=== PATIENT | female | born 1960 | race Caucasian/White ===

== ENCOUNTER 2016-04-08 03:43 | Inpatient (IN) | payer MEDICARE, OTHER, MEDICAID ==
[~2016-04-08] VITALS: Ht 167.6 cm; Wt 100.0 kg
[2016-04-08] VITALS (25 sets, daily range): BP systolic 139–247; BP diastolic 77–129; PULSE 73–85; RESP 16–27; TEMP 98.2–98.8; O2SAT 89–98
[2016-04-08] MEDS ORDERED: NITROGLYCERIN-DEXTROSE INJ 250 ML IV ONE (04:15)
[2016-04-08] MEDS ORDERED: FUROSEMIDE 40 MG/4 ML VIAL IV PUSH ONE (04:15)
[2016-04-08 04:31] LABS: AUTOMATED NEUTROPHIL # 9.2 TH/MM3 (1.8-7.7); BASOPHIL # 0.1 TH/MM3 (0-0.2); EOSINOPHIL # 0.2 TH/MM3 (0-0.4); EOSINOPHIL % 2.2 % (0.0-4.0); HEMATOCRIT 23.1 % (35.0-46.0); HEMO FLAGS DIFF FINAL; LYMPH % 6.8 % (9.0-44.0); LYMPHOCYTE # 0.7 TH/MM3 (1.0-4.8); MEAN CELL VOLUME 96.7 FL (80.0-100.0); MEAN CORPUSCULAR HEMOGLOBIN 32.4 PG (27.0-34.0); MEAN CORPUSCULAR HGB CONC 33.5 % (32.0-36.0); MONO % 5.1 % (0.0-8.0); NEUT % 84.9 % (16.0-70.0); PLATELET COUNT 219 TH/MM3 (150-450); RED BLOOD COUNT 2.39 MIL/MM3 (4.00-5.30); RED CELL DISTRIBUTION WIDTH 15.7 % (11.6-17.2); WHITE BLOOD COUNT 10.9 TH/MM3 (4.0-11.0)
[2016-04-08 04:40] LABS: BLOOD, URINE TRACE (NEG); GLUCOSE,URINE 1000 mg/dL (NEG); KETONE, URINE NEG (NEG); NITRITE,URINE NEG (NEG); URINE COLOR LIGHT-YELLOW (YELLW/STRAW)
[2016-04-08 04:43] LABS: APTT (PATIENT) 23.6 SEC (24.3-30.1); INTERNATIONAL NORMALIZED RATIO 0.9 RATIO; PROTHROMBIN TIME - PATIENT 10.1 SEC (9.8-11.6)
[2016-04-08 04:44] LABS: COMMENT (UR) CULT NOT INDICATED; CULTURE IF INDICATED CULT NOT INDICATED
[2016-04-08 04:56] LABS: ALT (GPT) 28 U/L (10-53); ANION GAP 14 MEQ/L (5-15); AST (GOT) 28 U/L (15-37); BICARBONATE 20.4 MEQ/L (21.0-32.0); BLOOD UREA NITROGEN 78 MG/DL (7-18); CHLORIDE 99 MEQ/L (98-107); GLOMERULAR FILTRATION RATE 4 ML/MIN (>89); MAGNESIUM 2.7 MG/DL (1.5-2.5); POTASSIUM 5.1 MEQ/L (3.5-5.1); SODIUM (NA) 133 MEQ/L (136-145)
[2016-04-08 05:00] LABS: ALKALINE PHOSPHATASE 91 U/L (45-117); BETA-HYDROXYBUTYRATE 0.17 MMOL/L (0.00-0.39); CREATINE KINASE 161 U/L (26-192); TOTAL BILIRUBIN ADULT 0.5 MG/DL (0.2-1.0)
--- NOTE | 2016-04-08 05:03 | PD ---
HPI Chief Complaint: Respiratory Distress Time Seen by Provider: 04:09 Travel History International Travel<30 days: No Contact w/Intl Traveler<30days: No Traveled to known affect area: No History of Present Illness HPI The patient is a 56 year old female who presents to the [facility] emergency department with a history of shortness of breath that awoke her from sound sleep prior to arrival. The patient reports that she has chronic renal failure and is on hemodialysis. She just recently moved to the area from [place] and has not established with a primary care doctor. She has established with shirring machine operator, Dr. Rubio. She reports that she has been getting her hemodialysis on Thursday, , and Thursday. She did receive her usual dialysis on Thursday. The patient reports that throughout the weekend she has had increased thirst and has been drinking a significant amount of extra fluids. She does not check her blood sugar on a regular basis although she does have a history of diabetes. She reports that she is on glyburide for her diabetes although her bottle that was provided by ambulance services is empty. The patient's blood sugar was noted be 468. The patient was placed on supplemental nasal cannula oxygen by ambulance services. The patient's room air oxygen saturation was 85-88%. The patient's O2 saturation on supplemental oxygen went up to 96-97%. The patient denies any recent fevers, cough, congestion, neck pain, chest pain, abdominal pain, vomiting, diarrhea, urinary symptoms (she does report urinating a small amount daily in spite of her renal failure), or neurologic symptoms. The patient's blood pressure was noted to be very high prior to arrival at 250/130. The patient reports that she last took her blood pressure medication 2 days ago she forgot to take it yesterday. [facility] Past Medical History Narrative Medical The patient's past medical history is significant for hypertension, chronic renal failure on hemodialysis, history of diabetes mellitus. Past Surgical History Narrative Surgical The patient's past surgical history is significant for a skin lesion resection, left arm AV fistula placement. Social History Alcohol Use: No Tobacco Use: No Substance Use: No Allergies-Medications (Allergen,Severity, Reaction): Coded Allergies: No Known Allergies (Unverified , 04/08/16) Reported Meds & Prescriptions Reported Meds & Active Scripts Active Reported Amlodipine (Amlodipine Besylate) 10 Mg Tab 10 Mg PO DAILY Glyburide 5 Mg Tab 5 Mg PO DAILY Take with meals at the same time each day Hydralazine (Hydralazine HCl) 25 Mg Tab 25 Mg PO TID Take with a meal Renvela (Sevelamer Carbonate) 800 Mg Tab 800 Mg PO TID Hydralazine (Hydralazine HCl) 50 Mg Tab 50 Mg PO BID Take with a meal Review of Systems Except as stated in HPI: all other systems reviewed are Neg General / Constitutional: No: Fever Eyes: No: Visual changes HENT: No: Headaches Cardiovascular: Positive: Dyspnea on exertion, No: Chest Pain or Discomfort Respiratory: Positive: Shortness of Breath Gastrointestinal: No: Nausea, Vomiting, Diarrhea, Abdominal Pain Genitourinary: No: Dysuria Musculoskeletal: No: Pain Skin: No Rash Neurologic: No: Weakness Psychiatric: No: Depression Endocrine: No: Polydipsia Hematologic/Lymphatic: No: Easy Bruising Physical Exam Narrative General: The patient is a well-developed well-nourished female who arrives short of breath with tachypnea, O2 saturations on supplemental oxygen at 4 L are 96-97%. Head and Neck exam: Head is normocephalic atraumatic. Eyes: EOMI, pupils are equal round and reactive to light. Nose: Midline septum with pink mucous membranes Mouth: Dentition unremarkable. Moist mucus membranes. Posterior oropharynx is not erythematous. No tonsillar hypertrophy. Uvula midline. Airway patent. Neck: No palpable lymphadenopathy. No nuchal rigidity. No thyromegaly. Cardiovascular: Regular rate and rhythm without murmurs, gallops, or rubs. No pulse deficit to the extremities and simultaneous auscultation and palpation of her radial artery. Lungs: The patient is noted to be tachypneic. Clear to auscultation bilaterally. No wheezes, rhonchi, or rales audible, however she has decreased air movement in the bases on examination. Abdomen: Soft, without tenderness to palpation in all 4 quadrants of the abdomen. No guarding, rebound, or rigidity. Normal bowel sounds are audible. Extremities: No clubbing or cyanosis. The patient has trace to 1+ pitting edema of bilateral lower extremities. 2+ pulses in all 4 extremities. No calf tenderness on palpation. Back: No spinous process tenderness to palpation. No costovertebral angle tenderness to palpation. Neurologic Exam: Grossly nonfocal. She is oriented to person, place, time, and situation. The patient is moving all extremities with 5 over 5 strength. The patient has intact sensation over all dermatomes. The patient has no facial asymmetry. Cranial nerves II through XII are intact. Skin Exam: No rash noted. Intact skin that is warm and dry. Data Data Last Documented VS Vital Signs Date Time Temp Pulse Resp B/P Pulse Ox O2 Delivery O2 Flow Rate FiO2 04/08/16 06:44 80 17 209/100 95 Nasal Cannula 2 04/08/16 03:45 98.2 Orders Electrocardiogram (04/08/16 04:09) Complete Blood Count With Diff (04/08/16 04:09) Comprehensive Metabolic Panel (04/08/16 04:09) Creatine Kinase (Cpk) (04/08/16 04:09) Ckmb (Isoenzyme) Profile (04/08/16 04:09) Troponin I (04/08/16 04:09) B-Type Natriuretic Peptide (04/08/16 04:09) Prothrombin Time / Inr (Pt) (04/08/16 04:09) Act Partial Throm Time (Ptt) (04/08/16 04:09) Arterial Blood Gas (Abg) (04/08/16 04:09) Urinalysis - C+S If Indicated (04/08/16 04:09) Magnesium (Mg) (04/08/16 04:09) Beta Hydroxybutyrate (Acetone) (04/08/16 04:09) Chest, Single Ap (04/08/16 04:09) Iv Access Insert/Monitor (04/08/16 04:09) Ecg Monitoring (04/08/16 04:09) Oximetry (04/08/16 04:09) Drug Screen, Random Urine (04/08/16 04:09) Nitroglycerin-Dextrose Inj (Nitroglyceri (04/08/16 04:15) Arterial Blood Gas (Abg) (04/08/16 ) Furosemide Inj (Lasix Inj) (04/08/16 04:15) CKMB (04/08/16 04:25) CKMB% (04/08/16 04:25) Morphine Inj (Morphine Inj) (04/08/16 05:15) Ondansetron Inj (Zofran Inj) (04/08/16 05:15) Insulin Human Regular Inj (Novolin R Inj (04/08/16 06:15) Admit To Inpatient (04/08/16 ) Vital Signs (Adult) Q4H (04/08/16 06:07) Activity Oob With Assistance (04/08/16 06:07) Bartacker / Telemetry .CONTINUOUS (04/08/16 06:07) Diet 1800 Ada Cons Carb (04/08/16 Breakfast) Diet Heart Healthy (04/08/16 Breakfast) Sodium Chloride 0.9% Flush (Ns Flush) (04/08/16 06:15) Sodium Chloride 0.9% Flush (Ns Flush) (04/08/16 09:00) Creatine Kinase (Cpk) (04/08/16 10:30) Creatine Kinase (Cpk) (04/08/16 16:30) Troponin I (04/08/16 10:30) Troponin I (04/08/16 16:30) Electrocardiogram (04/08/16 10:30) Electrocardiogram (04/08/16 16:30) Resp Oxygen Richardson C Titrat 1-4 L (04/08/16 ) Pt Request For Service (04/08/16 06:07) Case Management Consult (04/08/16 06:07) Naloxone Inj (Narcan Inj) (04/08/16 06:15) Inpatient Certification (04/08/16 ) Bedside Glucose OBI.AC&HS (04/08/16 06:10) ^ Blood Glucose Goal (Criteria (04/08/16 06:10) ^ Hypoglycemia 51 - 69 Mg/Dl (04/08/16 06:10) ^ Hypoglycemia 50 Mg/Dl Or < (04/08/16 06:10) ^ Notify Dr: Other (04/08/16 06:10) Dextrose 50% In [place] (Vial) Inj (D50w (Vi (04/08/16 06:15) Glucagon Inj (Glucagon Inj) (04/08/16 06:15) Insulin Aspart Supplemtl Scale (Novolog (04/08/16 07:00) Admit Order (Ed Use Only) (04/08/16 06:08) Labs Laboratory Tests Test 04/08/16 04/08/16 04/08/16 04:25 04:30 05:10 White Blood Count 10.9 TH/MM3 Red Blood Count 2.39 MIL/MM3 Hemoglobin 7.7 GM/DL Hematocrit 23.1 % Mean Corpuscular Volume 96.7 FL Mean Corpuscular Hemoglobin 32.4 PG Mean Corpuscular Hemoglobin 33.5 % Concent Red Cell Distribution Width 15.7 % Platelet Count 219 TH/MM3 Mean Platelet Volume 9.0 FL Neutrophils (%) (Auto) 84.9 % Lymphocytes (%) (Auto) 6.8 % Monocytes (%) (Auto) 5.1 % Eosinophils (%) (Auto) 2.2 % Basophils (%) (Auto) 1.0 % Neutrophils # (Auto) 9.2 TH/MM3 Lymphocytes # (Auto) 0.7 TH/MM3 Monocytes # (Auto) 0.6 TH/MM3 Eosinophils # (Auto) 0.2 TH/MM3 Basophils # (Auto) 0.1 TH/MM3 CBC Comment DIFF FINAL Differential Comment Prothrombin Time 10.1 SEC Prothromb Time International 0.9 RATIO Ratio Activated Partial 23.6 SEC Thromboplast Time Sodium Level 133 MEQ/L Potassium Level 5.1 MEQ/L Chloride Level 99 MEQ/L Carbon Dioxide Level 20.4 MEQ/L Anion Gap 14 MEQ/L Blood Urea Nitrogen 78 MG/DL Creatinine 10.44 MG/DL Estimat Glomerular Filtration 4 ML/MIN Rate Random Glucose 460 MG/DL Calcium Level 8.8 MG/DL Magnesium Level 2.7 MG/DL Total Bilirubin 0.5 MG/DL Aspartate Amino Transf 28 U/L (AST/SGOT) Alanine Aminotransferase 28 U/L (ALT/SGPT) Alkaline Phosphatase 91 U/L Total Creatine Kinase 161 U/L Creatine Kinase MB 2.2 NG/ML Troponin I 0.71 NG/ML B-Type Natriuretic Peptide 1210 PG/ML Total Protein 7.1 GM/DL Albumin 3.4 GM/DL B-Hydroxybutyrate 0.17 MMOL/L Urine Color LIGHT-YELLOW Urine Turbidity CLEAR Urine pH 8.0 Urine Specific [place] 1.008 Urine Protein 300 mg/dL Urine Glucose (UA) 1000 mg/dL Urine Ketones NEG mg/dL Urine Occult Blood TRACE Urine Nitrite NEG Urine Bilirubin NEG Urine Urobilinogen LESS THAN 2.0 MG/DL Urine Leukocyte Esterase NEG Urine RBC 1 /hpf Urine WBC 2 /hpf Microscopic Urinalysis Comment CULT NOT INDICATED Blood Gas Puncture Site RT RADIAL Blood Gas Patient Temperature 98.6 Blood Gas HCO3 19 mmol/L Blood Gas Base Excess -5.8 mmol/L Blood Gas Oxygen Saturation 89 % Arterial Blood pH 7.35 Arterial Blood Partial 35 mmHg Pressure CO2 Arterial Blood Partial 70 mmHG Pressure O2 Arterial Blood Oxygen Content 16.3 Vol % Arterial Blood 2.5 % Carboxyhemoglobin Arterial Blood Methemoglobin 2.1 % Blood Gas Hemoglobin 13.0 G/DL Oxygen Delivery Device ROOM AIR Blood Gas Inspired Oxygen 21 % [facility] Medical Decision Making Medical Screen Exam Complete: Yes Emergency Medical Condition: Yes Medical Record Reviewed: Yes Interpretation(s) Laboratory Tests Test 04/08/16 04/08/16 04/08/16 04:25 04:30 05:10 White Blood Count 10.9 TH/MM3 Red Blood Count 2.39 MIL/MM3 Hemoglobin 7.7 GM/DL Hematocrit 23.1 % Mean Corpuscular Volume 96.7 FL Mean Corpuscular Hemoglobin 32.4 PG Mean Corpuscular Hemoglobin 33.5 % Concent Red Cell Distribution Width 15.7 % Platelet Count 219 TH/MM3 Mean Platelet Volume 9.0 FL Neutrophils (%) (Auto) 84.9 % Lymphocytes (%) (Auto) 6.8 % Monocytes (%) (Auto) 5.1 % Eosinophils (%) (Auto) 2.2 % Basophils (%) (Auto) 1.0 % Neutrophils # (Auto) 9.2 TH/MM3 Lymphocytes # (Auto) 0.7 TH/MM3 Monocytes # (Auto) 0.6 TH/MM3 Eosinophils # (Auto) 0.2 TH/MM3 Basophils # (Auto) 0.1 TH/MM3 CBC Comment DIFF FINAL Differential Comment Prothrombin Time 10.1 SEC Prothromb Time International 0.9 RATIO Ratio Activated Partial 23.6 SEC Thromboplast Time Sodium Level 133 MEQ/L Potassium Level 5.1 MEQ/L Chloride Level 99 MEQ/L Carbon Dioxide Level 20.4 MEQ/L Anion Gap 14 MEQ/L Blood Urea Nitrogen 78 MG/DL Creatinine 10.44 MG/DL Estimat Glomerular Filtration 4 ML/MIN Rate Random Glucose 460 MG/DL Calcium Level 8.8 MG/DL Magnesium Level 2.7 MG/DL Total Bilirubin 0.5 MG/DL Aspartate Amino Transf 28 U/L (AST/SGOT) Alanine Aminotransferase 28 U/L (ALT/SGPT) Alkaline Phosphatase 91 U/L Total Creatine Kinase 161 U/L Creatine Kinase MB 2.2 NG/ML Troponin I 0.71 NG/ML B-Type Natriuretic Peptide 1210 PG/ML Total Protein 7.1 GM/DL Albumin 3.4 GM/DL B-Hydroxybutyrate 0.17 MMOL/L Urine Color LIGHT-YELLOW Urine Turbidity CLEAR Urine pH 8.0 Urine Specific [place] 1.008 Urine Protein 300 mg/dL Urine Glucose (UA) 1000 mg/dL Urine Ketones NEG mg/dL Urine Occult Blood TRACE Urine Nitrite NEG Urine Bilirubin NEG Urine Urobilinogen LESS THAN 2.0 MG/DL Urine Leukocyte Esterase NEG Urine RBC 1 /hpf Urine WBC 2 /hpf Microscopic Urinalysis Comment CULT NOT INDICATED Blood Gas Puncture Site RT RADIAL Blood Gas Patient Temperature 98.6 Blood Gas HCO3 19 mmol/L Blood Gas Base Excess -5.8 mmol/L Blood Gas Oxygen Saturation 89 % Arterial Blood pH 7.35 Arterial Blood Partial 35 mmHg Pressure CO2 Arterial Blood Partial 70 mmHG Pressure O2 Arterial Blood Oxygen Content 16.3 Vol % Arterial Blood 2.5 % Carboxyhemoglobin Arterial Blood Methemoglobin 2.1 % Blood Gas Hemoglobin 13.0 G/DL Oxygen Delivery Device ROOM AIR Blood Gas Inspired Oxygen 21 % Last Impressions Chest X-Ray 04/08/16 0409 Signed Impressions: Service Date/Time: Friday, April 08, 2016 04:36 - CONCLUSION: 1. Cardiomegaly and bibasilar atelectasis versus pneumonia Walter Jorgensen MD Differential Diagnosis Pulmonary edema related to excessive fluid intake and the patient with chronic renal failure, versus dedication noncompliance causing hypertensive emergency and pulmonary edema, versus tachypnea and sensation of shortness of breath related to DKA. Narrative Course During the course of the patients emergency department visit, the patients history, examination, and differential diagnosis were reviewed with the patient. The patient had IV access obtained and blood work sent for analysis. The patient was placed on a offset pressman with oximetry and blood pressure monitoring. An EKG was done on arrival. The patient's EKG shows a sinus rhythm heart rate of 80, moderate intraventricular conduction delay with a QRS duration of 113 ms, no acute ST segment elevation or depression, T waves are inverted in aVL the patient's initial blood pressure on arrival his systolic of 236. The patient will be started on a nitroglycerin drip to lower her blood pressure. The patient was provided nitroglycerin which will be titrated to get her blood pressure less than or equal to 190 systolic, Lasix 40 mg IV was given 1. The patients laboratory studies were reviewed and remarkable for a white count of 10.9, hemoglobin 7.7, platelets 219 with 84.9 neutrophils. The patient's anemia is suspected to be a chronic related to her history of renal failure. CMP is remarkable for sodium of 133, bicarbonate 20.4, BUN 78, creatinine 10.44 , glucose 460, magnesium 2.7, CPK is 161, troponin I 0.71 which is likely related to the patient's elevated blood pressure, shortness of breath, and renal failure as I do not suspect an acute coronary syndrome. BNP is 1210, urinalysis shows no signs of infection, beta hydroxybutyrate 0.17, PT 10.1, PTT 23.6. The patient will be given regular insulin 10 units subcutaneously 1 to lower her blood sugar. Radiology studies were reviewed and remarkable for a chest x-ray that shows cardiomegaly and bibasilar atelectasis versus pneumonia. Given the patient's history and examination findings, the chest x-ray findings are likely related to pulmonary edema. The patient's case was discussed with Dr. Rubio the patient's shirring machine operator at approximately 5:55 AM. He will arrange for hemodialysis this morning for the patient. The patients results were discussed with the patient, including the plan of care. I explained that further testing and/ or monitoring is indicated based on the patients history, examination, and/ or laboratory findings. Therefore, I recommended admission for additional evaluation. The patient expressed understanding and was agreeable with this plan. The patient was admitted to the hospital in guarded condition and [facility] Critical Care Narrative Aggregate critical care time was 41 minutes. Time to perform other separately billable procedures was not included in the critical care time. My time did not include minutes spent treating any other patients simultaneously or on activities that did not directly contribute to the patient's treatment. The services I provided to this patient were to treat and/or prevent clinically significant deterioration that could result in: Progression of electrolyte abnormalities, versus respiratory failure, versus intracranial hemorrhage I provided critical care services requiring my management, as noted below: Chart data review, documentation time, medication orders and management, vital sign assessments/reviewing monitor data, ordering and reviewing lab tests, ordering and interpreting/reviewing x-rays and diagnostic studies, care of the patient and discussion of the patient with the admitting physicians. Physician Communication Physician Communication The patient's case was discussed with the shirring machine operator. Please see narrative course for further information regarding this. The patient's case is discussed with Dr. Kirkland who did agree to admit the patient for further evaluation and treatment at this time. Diagnosis Primary Impression: Hypertensive emergency Additional Impressions: Pulmonary edema Qualified Code: J81.0 - Acute pulmonary edema Chronic renal failure Qualified Code: N18.9 - Chronic renal failure, unspecified stage Noncompliance w/medication treatment due to intermit use of medication Admitting Information Admitting Physician Requests: Sun Ignacio MD Apr 08, 2016 05:03
[2016-04-08] MEDS ORDERED: HYDR50TA15 PO (05:06)
[2016-04-08] MEDS ORDERED: SEVEL800 PO (05:06)
[2016-04-08] MEDS ORDERED: GLYB5TAB3 PO (05:06)
[2016-04-08] MEDS ORDERED: AMLO10TA2 PO (05:06)
[2016-04-08] MEDS ORDERED: HYDR25TA35 PO (05:06)
[2016-04-08] MEDS ORDERED: MORPHINE SULFATE 4 MG/ML INJ IV PUSH ONE (05:15)
[2016-04-08] MEDS ORDERED: ONDANSETRON HCL 4 MG/2 ML VIAL IV PUSH ONE (05:15)
--- NOTE | 2016-04-08 05:15 | RADRPT ---
EXAM DATE/TIME: 04/08/2016 04:36 [facility] COMPARISON: No previous studies available for comparison. INDICATIONS : Short of breath. MEDICAL HISTORY : Diabetes mellitus type II. SURGICAL HISTORY : None. ENCOUNTER: Initial ACUITY: 1 day PAIN SCORE: 0/10 LOCATION: Bilateral chest FINDINGS: The cardiac silhouette is enlarged in transverse diameter. There is subsegmental atelectasis versus pneumonia in the both bases. There is no evidence of pneumonia. No pleural effusions are identified. CONCLUSION: 1. Cardiomegaly and bibasilar atelectasis versus pneumonia Walter Jorgensen MD on April 08, 2016 at 5:13 Board Certified Radiologist. This report was verified electronically.
[2016-04-08 05:24] LABS: CKMB 2.2 NG/ML (0.5-3.6)
[2016-04-08 05:26] LABS: BLOOD GAS BASE EXCESS -5.8 mmol/L (-2-2); BLOOD GAS CARBOXYHEMOGLOBIN 2.5 % (0-4); BLOOD GAS HCO3 19 mmol/L (22-26); BLOOD GAS METHEMOGLOBIN 2.1 % (0-2); BLOOD GAS O2 HGB SATURATION 89 % (90-100); BLOOD GAS OXYGEN CONTENT 16.3 Vol % (12.0-20.0); BLOOD GAS PCO2 35 mmHg (38-42); BLOOD GAS PO2 70 mmHG (61-120); TEMP CORR TO 98.6
[2016-04-08 05:27] LABS: CRITICAL VALUE YES; DRAW SITE RT RADIAL; FIO2 21 %; NUMBER OF ARTERIAL PUNCTURES 1; OXYGEN DEVICE ROOM AIR; STAT YES; ULNAR PULSE PRESENT
[2016-04-08] MEDS ORDERED: SODIUM CHLORIDE 0.9% FLUSH 5 ML FLUSH FLUSH PRN (06:15)
[2016-04-08] MEDS ORDERED: INSULIN HUMAN REGULAR 1,000 UNITS/10 ML VIAL SQ ONE (06:15)
[2016-04-08] MEDS ORDERED: NALOXONE HCL 0.4 MG/ML AMP IV PRN (06:15)
[2016-04-08] MEDS ORDERED: DEXTROSE 50% IN WATER 50 ML VIAL(D50) IV PUSH PRN (06:15)
[2016-04-08] MEDS ORDERED: GLUCAGON 1 MG/ML VIAL OTHER PRN (06:15)
[2016-04-08] MEDS: SODIUM CHLORIDE 0.9% FLUSH 5 ML FLUSH FLUSH SCH ×2 (07:02→20:38)
[2016-04-08] MEDS: INSULIN ASPART SUPPLEMENTAL SCALE SQ SCH ×4 (07:39→21:00)
--- NOTE | 2016-04-08 10:31 | EKG ---
Date Performed: 04/08/2016 Time Performed: 03:51:53 PTAGE: 56 years EKG: Sinus rhythm POOR R-WAVE PROGRESSION, LIKELY DUE TO LEAD PLACEMENT BUT CAN'T EXCLUDE ANTEROSEPTLA WY BORDERLINE E CG NO PREVIOUS TRACING DOCTOR: Den Chery Interpretating Date/Time 04/08/2016 10:29:33
[2016-04-08] MEDS: ASPIRIN 81 MG CHEW TAB CHEW SCH (11:00)
--- NOTE | 2016-04-08 11:06 | HHI.HP ---
[facility] No Primary Care Physician Admission Diagnosis Hypertensive Emergency, Chronic renal failure on hemodialysis Diagnoses: (1) Hypertensive emergency Diagnosis: Principal (2) ESRD (end stage renal disease) Diagnosis: Principal (3) Elevated troponin Diagnosis: Principal Chief Complaint: sob Travel History International Travel<30 Days: No Contact w/Intl Traveler <30 Da: No Traveled to Known Affected Are: No History of Present Illness patient is a 56 y/o female with history of ESRD-on HD ( TTS schedule), diabetes and hypertension presented to ER with sob. she says that she woke up with sob this morning. she denies any cough, fever, chest pain, nausea or vomiting. she says that she had her last HD on Thursday. she says that she's taking her medications but her BP is normally on ' high side'.she was started on Nitro drip in ER. she has moved from [place] . Review of Systems Constitutional: DENIES: Fever, Weight loss, Chills, Night Sweats Eyes: DENIES: Blurred vision, Diplopia, Vision loss, Double Vision Ears, nose, mouth, throat: DENIES: Tinnitus, Vertigo, Throat pain, Epistaxis Respiratory: COMPLAINS OF: Shortness of breath, DENIES: Apneas, Cough, Snoring , Wheezing, Hemoptysis, Sputum production Cardiovascular: DENIES: Chest pain, Palpitations, Syncope, Dyspnea on Exertion , PND, Lower Extremity Edema, Orthopnea, Claudication Gastrointestinal: DENIES: Abdominal pain, Black stools, Bloody stools, Constipation, Diarrhea, Nausea, Vomiting, Difficulty Swallowing, Anorexia Genitourinary: DENIES: Urinary frequency, Urgency, Hematuria, Dysuria Musculoskeletal: DENIES: Joint pain, Muscle aches, Stiffness, Joint Swelling Integumentary: DENIES: Rash Neurologic: DENIES: Abnormal gait, Headache, Localized weakness, Paresthesias, Seizures, Speech Problems, Tremor, Poor Balance Psychiatric: DENIES: Anxiety, Confusion, Mood changes, Depression, Hallucinations, Agitation, Suicidal Ideation, Homicidal Ideation, Delusions Past Family Social History Past Medical History ESRD hypertension diabetes mellitus Past Surgical History none reported. Reported Medications amlodipine hydralazine glyburide renvela Allergies: Coded Allergies: No Known Allergies (Unverified , 04/08/16) Active Ordered Medications Current Medications Nitroglycerin/ Dextrose (Nitroglycerin-Dextrose Inj) 250 ml @ 0 mls/hr TITRATE ONCE IV Last administered on 04/08/16 04:33; Start 04/08/16 at 04:15; Stop at 04:16; Status DC Furosemide (Lasix Inj) 40 mg ONCE ONCE IV PUSH Last administered on 04/08/16 04:33; Start 04/08/16 at 04:15; Stop 04/08/16 at 04:16; Status DC Morphine Sulfate (Morphine Inj) 4 mg ONCE ONCE IV PUSH Last administered on 05:21; Start 04/08/16 at 05:15; Stop 04/08/16 at 05:16; Status DC Ondansetron HCl (Zofran Inj) 4 mg ONCE ONCE IV PUSH Last administered on 05:20; Start 04/08/16 at 05:15; Stop 04/08/16 at 05:16; Status DC Insulin Human Regular (NovoLIN R INJ) 10 units ONCE ONCE SQ Last administered on 04/08/16 06:29; Start 04/08/16 at 06:15; Stop 04/08/16 at 06:16; Status DC IV Flush (NS Flush) 2 ml UNSCH PRN FLUSH FLUSH AFTER USING IV ACCESS; Start at 06:15 IV Flush (NS Flush) 2 ml BID FLUSH ; Start 04/08/16 at 09:00 Naloxone HCl (Narcan Inj) 0.4 mg UNSCH PRN IV SEE LABEL COMMENTS; Start at 06:15 Dextrose (D50w (Vial) Inj) 25 ml UNSCH PRN IV PUSH HYPOGLYCEMIA-SEE COMMENTS; Start 04/08/16 at 06:15 Glucagon (Glucagon Inj) 1 mg UNSCH PRN OTHER HYPOGLYCEMIA-SEE COMMENTS; Start 04/08/16 at 06:15 Insulin Aspart (NovoLOG SUPPLEMENTAL SCALE) 1 ACHS SLIDING SCALE SQ Last administered on 04/08/16 07:39; Start 04/08/16 at 07:00 Family History not related to this admission. Social History no smoking or drinking. Physical Exam Vital Signs Vital Signs Date Time Temp Pulse Resp B/P Pulse Ox O2 Delivery O2 Flow Rate FiO2 04/08/16 09:11 73 04/08/16 09:03 98.5 73 20 184/91 94 04/08/16 07:03 85 16 189/97 95 Nasal Cannula 2 04/08/16 06:53 81 16 194/89 94 Nasal Cannula 2 04/08/16 06:44 80 17 209/100 95 Nasal Cannula 2 04/08/16 06:31 83 16 216/101 97 Nasal Cannula 2 04/08/16 06:29 96 04/08/16 06:23 82 17 207/94 96 Nasal Cannula 2 04/08/16 05:56 78 17 216/91 98 Nasal Cannula 2 04/08/16 05:42 81 18 240/108 96 Nasal Cannula 2 04/08/16 05:21 81 20 234/112 97 Nasal Cannula 2 04/08/16 05:10 80 20 247/129 98 Nasal Cannula 2 04/08/16 04:40 83 24 239/119 93 Room Air 04/08/16 03:50 81 27 236/111 93 Nasal Cannula 2 04/08/16 03:45 98.2 Physical Exam GENERAL: This is a well-nourished, well-developed patient, in no apparent distress. SKIN: No rashes, ecchymoses or lesions. Cool and dry. HEAD: Atraumatic. Normocephalic. No temporal or scalp tenderness. EYES: Pupils equal round and reactive. Extraocular motions intact. No scleral icterus. No injection or drainage. ENT: Nose without bleeding, purulent drainage or septal hematoma. Throat without erythema, tonsillar hypertrophy or exudate. Uvula midline. Airway patent. NECK: Trachea midline. No JVD or lymphadenopathy. Supple, nontender, no meningeal signs. CARDIOVASCULAR: Regular rate and rhythm without murmurs, gallops, or rubs. RESPIRATORY: Clear to auscultation. Breath sounds equal bilaterally. No wheezes , rales, or rhonchi. GASTROINTESTINAL: Abdomen soft, non-tender, nondistended. No hepato-splenomegaly , or palpable masses. No guarding. MUSCULOSKELETAL: Extremities without clubbing, cyanosis, or edema. No joint tenderness, effusion, or edema noted. No calf tenderness. Negative Homans sign bilaterally. NEUROLOGICAL: Awake and alert. Cranial nerves II through XII intact. Motor and sensory grossly within normal limits. Five out of 5 muscle strength in all muscle groups. Normal speech. Laboratory Laboratory Tests Test 04/08/16 04/08/16 04/08/16 04:25 04:30 05:10 White Blood Count 10.9 Red Blood Count 2.39 Hemoglobin 7.7 Hematocrit 23.1 Mean Corpuscular Volume 96.7 Mean Corpuscular Hemoglobin 32.4 Mean Corpuscular Hemoglobin 33.5 Concent Red Cell Distribution Width 15.7 Platelet Count 219 Mean Platelet Volume 9.0 Neutrophils (%) (Auto) 84.9 Lymphocytes (%) (Auto) 6.8 Monocytes (%) (Auto) 5.1 Eosinophils (%) (Auto) 2.2 Basophils (%) (Auto) 1.0 Neutrophils # (Auto) 9.2 Lymphocytes # (Auto) 0.7 Monocytes # (Auto) 0.6 Eosinophils # (Auto) 0.2 Basophils # (Auto) 0.1 CBC Comment DIFF FINAL Differential Comment Prothrombin Time 10.1 Prothromb Time International 0.9 Ratio Activated Partial 23.6 Thromboplast Time Sodium Level 133 Potassium Level 5.1 Chloride Level 99 Carbon Dioxide Level 20.4 Anion Gap 14 Blood Urea Nitrogen 78 Creatinine 10.44 Estimat Glomerular Filtration 4 Rate Random Glucose 460 Calcium Level 8.8 Magnesium Level 2.7 Total Bilirubin 0.5 Aspartate Amino Transf 28 (AST/SGOT) Alanine Aminotransferase 28 (ALT/SGPT) Alkaline Phosphatase 91 Total Creatine Kinase 161 Creatine Kinase MB 2.2 Troponin I 0.71 B-Type Natriuretic Peptide 1210 Total Protein 7.1 Albumin 3.4 B-Hydroxybutyrate 0.17 Urine Color LIGHT-YELLOW Urine Turbidity CLEAR Urine pH 8.0 Urine Specific [place] 1.008 Urine Protein 300 Urine Glucose (UA) 1000 Urine Ketones NEG Urine Occult Blood TRACE Urine Nitrite NEG Urine Bilirubin NEG Urine Urobilinogen LESS THAN 2.0 Urine Leukocyte Esterase NEG Urine RBC 1 Urine WBC 2 Microscopic Urinalysis Comment CULT NOT INDICATED Blood Gas Puncture Site RT RADIAL Blood Gas Patient Temperature 98.6 Blood Gas HCO3 19 Blood Gas Base Excess -5.8 Blood Gas Oxygen Saturation 89 Arterial Blood pH 7.35 Arterial Blood Partial 35 Pressure CO2 Arterial Blood Partial 70 Pressure O2 Arterial Blood Oxygen Content 16.3 Arterial Blood 2.5 Carboxyhemoglobin Arterial Blood Methemoglobin 2.1 Blood Gas Hemoglobin 13.0 Oxygen Delivery Device ROOM AIR Blood Gas Inspired Oxygen 21 Result Diagram: 04/08/1642404/08/16424 Imaging Last Impressions Chest X-Ray 04/08/16408 Signed Impressions: Service Date/Time: Friday, April 08, 2016 04:36 - CONCLUSION: 1. Cardiomegaly and bibasilar atelectasis versus pneumonia Walter Jorgensen MD EKG ; sinus rhythm Assessment and Plan Assessment and Plan A/P - hypertensive emergency with history of ESRD-on HD started on nitro-drip- resume amlodipine and hydralazine- will monitor and start to taper down the drip will consult nephrology for HD -elevated troponin- due to ESRD? start aspirin- check the trend and consult cardiology -anemia of chronic disease- will monitor -diabetes mellitus; accu-check with SSI -DVT prophylaxis with SCD's Discussed Condition With the patient and RN. Physician Certification 2 Midnight Certification Type: Admission for Inpatient Services Order for Inpatient Services The services are ordered in accordance with Medicare regulations or non- Medicare payer requirements, as applicable. In the case of services not specified as inpatient-only, they are appropriately provided as inpatient services in accordance with the 2-midnight benchmark. Estimated LOS (days): 2 days is the estimated time the patient will need to remain in the hospital, assuming treatment plan goals are met and no additional complications. Post-Hospital Plan: Home Kika Fernandes MD Apr 08, 2016 11:06
[2016-04-08] MEDS ORDERED: RESP: ALBUTEROL 2.5 MG/IPRATROPIUM 0.5 MG NEB (PRN) NEB (11:45)
--- NOTE | 2016-04-08 11:52 | PD.CONS ---
HPI Service Nephrology Consult Requested By Reason for Consult Known ESRD on HD Primary Care Physician No Primary Care Physician History of Present Illness The patient is a 56 yo [place] female who is known to our services for ESRD on HD. She was brought to the ED this AM at the urge of her as she was severely SOB. She is very noncompliant when it comes to her fluid restrictions and says this weekend she "couldn't get enough to drink". Her last HD was on Thursday, which she did attend, but signed off of treatment early due to cramping. She does not follow with a primary care physician and states she only uses Glipizide for diabetic management. Not sure how her glucose levels are at home as she does not check. Non-smoker. BP has been high, but does come down after HD therapy. Has been started on NTG drip (Esperanza Morgan) Review of Systems Respiratory: COMPLAINS OF: Cough, Shortness of breath (Esperanza Morgan) Past Family Social History Allergies: Coded Allergies: No Known Allergies (Unverified , 04/08/16) Past Medical History ESRD on HD DM HTN Hyperphosphatemia Anemia Past Surgical History AVF formation LUE Reported Medications Reported Meds & Active Scripts Active Reported Amlodipine (Amlodipine Besylate) 10 Mg Tab 10 Mg PO DAILY Glyburide 5 Mg Tab 5 Mg PO DAILY Take with meals at the same time each day Hydralazine (Hydralazine HCl) 25 Mg Tab 25 Mg PO TID Take with a meal Renvela (Sevelamer Carbonate) 800 Mg Tab 800 Mg PO TID Hydralazine (Hydralazine HCl) 50 Mg Tab 50 Mg PO BID Take with a meal Active Ordered Medications Current Medications Medications (Trade) Dose Ordered Sig/Shaun Route Start Time Stop Time Status Last Admin (NS Flush) 2 ml UNSCH PRN FLUSH 04/08/16 06:15 (NS Flush) 2 ml BID FLUSH 04/08/16 09:00 (Narcan Inj) 0.4 mg UNSCH PRN IV 04/08/16 06:15 (D50w (Vial) Inj) 25 ml UNSCH PRN IV PUSH 04/08/16 06:15 (Glucagon Inj) 1 mg UNSCH PRN OTHER 04/08/16 06:15 (Norvasc) 10 mg DAILY PO 04/08/16 11:00 (Renvela) 800 mg TID PO 04/08/16 13:00 (Apresoline) 50 mg Q8HR PO 04/08/16 14:00 (Aspirin Chew) 81 mg DAILY CHEW 04/08/16 11:00 (Tylenol) 650 mg Q4H PRN PO 04/08/16 11:00 Family History [place] Social History Lives at home with her Denies tobacco use No EtOH No illicit drug use (Esperanza Morgan) Physical Exam Vital Signs Vital Signs Date Time Temp Pulse Resp B/P Pulse Ox O2 Delivery O2 Flow Rate FiO2 04/08/16 09:11 73 04/08/16 09:03 98.5 73 20 184/91 94 04/08/16 07:03 85 16 189/97 95 Nasal Cannula 2 04/08/16 06:53 81 16 194/89 94 Nasal Cannula 2 04/08/16 06:44 80 17 209/100 95 Nasal Cannula 2 04/08/16 06:31 83 16 216/101 97 Nasal Cannula 2 04/08/16 06:29 96 04/08/16 06:23 82 17 207/94 96 Nasal Cannula 2 04/08/16 05:56 78 17 216/91 98 Nasal Cannula 2 04/08/16 05:42 81 18 240/108 96 Nasal Cannula 2 04/08/16 05:21 81 20 234/112 97 Nasal Cannula 2 04/08/16 05:10 80 20 247/129 98 Nasal Cannula 2 04/08/16 04:40 83 24 239/119 93 Room Air 04/08/16 03:50 81 27 236/111 93 Nasal Cannula 2 04/08/16 03:45 98.2 Physical Exam GENERAL: Sitting up on edge of the bed. In NAD, but is heavy breathing SKIN: Warm and dry. HEAD: Atraumatic. Normocephalic. EYES: Pupils equal and round. No scleral icterus. No injection or drainage. ENT: No nasal bleeding or discharge. Mucous membranes pink and moist. NECK: Trachea midline. No JVD. CARDIOVASCULAR: Regular rate and rhythm. RESPIRATORY: Diminished breath sounds throughout. No rales GASTROINTESTINAL: Abdomen soft, non-tender, nondistended. Hepatic and splenic margins not palpable. MUSCULOSKELETAL: Extremities without clubbing, cyanosis. 1-2+ pitting edema BLE up to knees. NEUROLOGICAL: Awake and alert. Normal speech. PSYCHIATRIC: Appropriate mood and affect; insight and judgment normal. Laboratory Laboratory Tests Test 04/08/16 04/08/16 04/08/16 04:25 04:30 05:10 White Blood Count 10.9 Red Blood Count 2.39 Hemoglobin 7.7 Hematocrit 23.1 Mean Corpuscular Volume 96.7 Mean Corpuscular Hemoglobin 32.4 Mean Corpuscular Hemoglobin 33.5 Concent Red Cell Distribution Width 15.7 Platelet Count 219 Mean Platelet Volume 9.0 Neutrophils (%) (Auto) 84.9 Lymphocytes (%) (Auto) 6.8 Monocytes (%) (Auto) 5.1 Eosinophils (%) (Auto) 2.2 Basophils (%) (Auto) 1.0 Neutrophils # (Auto) 9.2 Lymphocytes # (Auto) 0.7 Monocytes # (Auto) 0.6 Eosinophils # (Auto) 0.2 Basophils # (Auto) 0.1 CBC Comment DIFF FINAL Differential Comment Prothrombin Time 10.1 Prothromb Time International 0.9 Ratio Activated Partial 23.6 Thromboplast Time Sodium Level 133 Potassium Level 5.1 Chloride Level 99 Carbon Dioxide Level 20.4 Anion Gap 14 Blood Urea Nitrogen 78 Creatinine 10.44 Estimat Glomerular Filtration 4 Rate Random Glucose 460 Calcium Level 8.8 Magnesium Level 2.7 Total Bilirubin 0.5 Aspartate Amino Transf 28 (AST/SGOT) Alanine Aminotransferase 28 (ALT/SGPT) Alkaline Phosphatase 91 Total Creatine Kinase 161 Creatine Kinase MB 2.2 Troponin I 0.71 B-Type Natriuretic Peptide 1210 Total Protein 7.1 Albumin 3.4 B-Hydroxybutyrate 0.17 Urine Color LIGHT-YELLOW Urine Turbidity CLEAR Urine pH 8.0 Urine Specific [place] 1.008 Urine Protein 300 Urine Glucose (UA) 1000 Urine Ketones NEG Urine Occult Blood TRACE Urine Nitrite NEG Urine Bilirubin NEG Urine Urobilinogen LESS THAN 2.0 Urine Leukocyte Esterase NEG Urine RBC 1 Urine WBC 2 Microscopic Urinalysis Comment CULT NOT INDICATED Blood Gas Puncture Site RT RADIAL Blood Gas Patient Temperature 98.6 Blood Gas HCO3 19 Blood Gas Base Excess -5.8 Blood Gas Oxygen Saturation 89 Arterial Blood pH 7.35 Arterial Blood Partial 35 Pressure CO2 Arterial Blood Partial 70 Pressure O2 Arterial Blood Oxygen Content 16.3 Arterial Blood 2.5 Carboxyhemoglobin Arterial Blood Methemoglobin 2.1 Blood Gas Hemoglobin 13.0 Oxygen Delivery Device ROOM AIR Blood Gas Inspired Oxygen 21 (Esperanza Morgan) Result Diagram: 04/08/1642404/08/16424 Imaging Last Impressions Chest X-Ray 04/08/16408 Signed Impressions: Service Date/Time: Friday, April 08, 2016 04:36 - CONCLUSION: 1. Cardiomegaly and bibasilar atelectasis versus pneumonia Walter Jorgensen MD (Esperanza Morgan) Assessment and Plan Problem List: (1) ESRD (end stage renal disease) Plan: The patient typically dialyzes TTS. HD as scheduled today with UF of 5-6L if tolerated. Will likely need HD again on Thursday Medications should be adjusted for the patient's ESRD. Avoid gadolinium. (2) Non-compliance Plan: Discussed at length about noncompliance with medications, fluid restrictions, dietary guidelines. Although she says she understands, she appears to have little insight into the severity of her poor decision making. (3) Hypertensive emergency Plan: Pt was started on NTG drip. BP will improve with HD. Continue on home medications otherwise. (4) Fluid overload Plan: As above. HD today and likely will need again on Thursday. (5) Anemia Plan: Repeat CBC with Fe panels. Epogen with HD (Esperanza Morgan) Assessment and Plan The exam, history, and the medical decision-making described in the above note were completed with the assistance of the PA-Malena. I reviewed and agree with the findings presented. I attest that I had a [id number] encounter with the patient on the same day, and personally performed and documented my assessment and findings in the medical record. I again discussed with the patient importance of compliance with her dietary fluid restriction, sodium chloride restriction and dialysis treatments. The patient has an ongoing history of signing off the dialysis machine prior to completion of her treatments which obviously is detrimental to her health as discussed with her again but the patient continues to show poor insight. In addition she has not taken steps to keep her insurance active and I discussed with her the importance of doing same. A social work and the dialysis facility has been advising the patient regarding this but the patient has made no effort so far to get this situation rectified. In view of non-compliance with medical advice and care I advised her that unless she improves her compliance the patient physician relationship will have to be reviewed. (Jillian Rubio MD) sEperanza Morgan Apr 08, 2016 11:52 Jillian Rubio MD Apr 08, 2016 15:05
[2016-04-08] MEDS ORDERED: SODIUM CHLOR 0.9% 1000 ML INJ 1,000 ML IV PRN ×3 (11:55)
[2016-04-08] MEDS ORDERED: GELATIN 12 MM/7 MM FOAM TOP PRN (12:00)
[2016-04-08] MEDS ORDERED: HEPARIN SODIUM - IV 10,000 UNITS/10 ML VIAL PRN (12:00)
[2016-04-08] MEDS ORDERED: MANNITOL 12.5 GM/50 ML VIAL IV PRN (12:00)
[2016-04-08] MEDS ORDERED: ACETAMINOPHEN 325 MG TAB PO PRN (12:00)
[2016-04-08] MEDS ORDERED: diphenhydrAMINE HCL 25 MG CAP PO PRN (12:00)
[2016-04-08] MEDS ORDERED: GENTAMICIN SULFATE (DIALYSIS USE ONLY) 20 MG/2 ML VIAL IV PRN (12:00)
[2016-04-08] MEDS ORDERED: ALBUMIN HUMAN 25% 25 GM/100 ML BAGP IV PRN (12:00)
[2016-04-08] MEDS ORDERED: HEPARIN SODIUM - IV 10,000 UNITS/10 ML VIAL IVF PRN (12:00)
[2016-04-08] MEDS ORDERED: EPOETIN ALFA 10,000 UNITS/ML VIAL IV ONE (12:00)
[2016-04-08] MEDS ORDERED: NITROGLYCERIN 0.4 MG SL 25 TABS/BTL SL PRN (12:00)
[2016-04-08] MEDS ORDERED: ONDANSETRON HCL 4 MG/2 ML VIAL IV PRN (12:00)
[2016-04-08] MEDS ORDERED: SODIUM CHLORIDE 0.9% FLUSH 5 ML FLUSH IVF PRN (12:00)
[2016-04-08] MEDS ORDERED: cloNIDine HCL 0.1 MG TAB PO PRN (12:00)
[2016-04-08] MEDS: SEVELAMER CARBONATE 800 MG TAB PO SCH ×2 (13:00→17:29)
[2016-04-08] MEDS: hydrALAZINE HCL 50 MG TAB PO SCH ×2 (14:00→20:37)
[2016-04-08] MEDS: ACETAMINOPHEN 325 MG TAB PO PRN (15:43)
[2016-04-08] MEDS ORDERED: hydrALAZINE HCL 20 MG/ML VIAL IV PUSH PRN (16:00)
--- NOTE | 2016-04-08 16:42 | MB ---
cc: JASVIR VAUGHAN DO DATE OF CONSULTATION: 04/08/2016 REASON FOR CONSULTATION: Elevation of troponins. HISTORY OF PRESENT ILLNESS Ryanne Patel is a 56-year-old female who presents to [facility] emergency room on April 08, 2016 at the urge of her due to shortness of breath. Per the nephrology note; she is a very noncompliant when comes her fluid restriction and said this weekend she could not get enough to drink. She had her last hemodialysis session on Thursday which she did attend but signed off treatment early due to cramping. She does not follow with a primary care physician and states she only uses glipizide for diabetic management. Per nephrology her blood pressures usually high but they come down after hemodialysis therapy. Upon arrival she was noted to be extensively hypertensive with a blood pressure of 247/129. She was originally started on a nitroglycerin drip but this has been stopped due to headache. She denies having chest pain throughout the weekend or prior to arrival. PAST MEDICAL HISTORY 1. End-stage renal disease on hemodialysis Thursday, , Thursday. 2. Diabetes mellitus 3. Hypertension 4. Anemia of chronic disease. 5. Noncompliance. PAST SURGICAL HISTORY AV fistula formation of the left upper extremity. ALLERGIES NO KNOWN DRUG ALLERGIES. MEDICATIONS 1. Norvasc 10 mg daily 2. Hydralazine 50 mg b.i.d. 3. Renvela 800 mg t.i.d. 4. Glipizide 5 mg daily. FAMILY HISTORY Denies premature coronary artery disease or sudden cardiac within the family. SOCIAL HISTORY Lives at home with her . Denies tobacco, alcohol or illicit drugs. REVIEW OF SYSTEMS 14 systems were reviewed including osteopathic pertinent positives and negatives above, otherwise negative. PHYSICAL EXAMINATION VITAL SIGNS: Temperature 98.5, heart rate 73, blood pressure 184/91, respirations 20, pulse ox 94% on 2 liters. IN GENERAL: The patient appears well in no acute distress, alert, awake and oriented x3. HEAD, EYES, EARS, NOSE, AND THROAT: Extraocular muscles intact. Mucous membranes moist. NECK: The neck is supple, no jugular venous distention at 45 degrees. No carotid bruits heard bilaterally. Carotid upstroke is brisk in nature. HEART: Heart is regular rate and rhythm. Positive first and second heart sounds with no murmurs, gallops or rubs. PMI is difficult to determine due to body habitus. LUNGS: The lungs have decreased breath sounds bilaterally. No wheezes, rales or rhonchi. ABDOMEN: Abdomen: Soft, nontender, nondistended. No organomegaly noted. Extremities: Show 1+ pitting edema bilaterally. NEUROLOGICALLY: No focal deficits. SKIN: Warm, dry and intact. OSTEOPATHIC: Mild lordosis. No kyphoscoliosis or paraspinal tender points. LABORATORY FINDINGS Hemoglobin 7.7, hematocrit 23.1, platelets 219. Potassium 5.1, BUN 78, creatinine 10.44, glucose 460, troponin 0.71. BNP 1210. Electrocardiogram (April 08, 2016 at 0351) sinus rhythm at 80 beats per minute, poor R-wave progression most likely due to lead placement, cannot exclude anterior septal myocardial infarction. IMPRESSION 1. N-STEMI most likely type 2 due to excessive hypertension, fluid overload state from end-stage renal disease and noncompliance. 2. Hypertensive emergency. 3. Noncompliance. 4. End-stage renal disease on hemodialysis Thursday, , Thursday. 5. Anemia of chronic disease. 6. Diabetes mellitus which appears to be uncontrolled. 7. Hyponatremia most likely from fluid overload status. 8. Elevated BMP most likely from fluid overload status due to noncompliance to water restriction also stopping dialysis early on Thursday. RECOMMENDATIONS 1. Ryanne's elevated troponin is most likely due to her excessive hypertension with up with a blood pressure of 247/129 as well as fluid overload state due to noncompliance with dialysis and fluid restriction. 2. We will place her on aspirin therapy. 3. We will attempt to get blood pressure control placing her on her usual medications. If unable to control her blood pressure Norvasc may need to be changed to Procardia. I will start her on low-dose Coreg to help also with her blood pressure. 4. She will have hydralazine p.r.n. for systolic blood pressures over 160. 5. We will check a 2-D echo to look for her overall left ventricular function, cardiac structure and possible valvopathies. 6. Will hold off on heparin drip at this time, as the patient has extensive hypertension and concern for possibility of potentiating a bleed 7. Depending on the results of above testing and further talks with the patient, further consideration will be made for medical management versus possible stress testing. Our major concern is her overall noncompliance on multiple levels. Overall, I do feel that her troponin spill was most likely due to her hypertensive episode, fluid overload status due to noncompliance with dialysis, and overall chronic kidney disease. Thank you for allowing me to see Ryanne Patel. If there are any questions please do not hesitate to call. Jasvir Vaughan DO VGP/ /3:43 PM /4:24 PM ANGEL
[2016-04-08] MEDS: CARVEDILOL 6.25 MG TAB PO SCH (20:37)
[2016-04-08] MEDS ORDERED: ATORVASTATIN 80 MG TAB PO SCH (21:00)
[2016-04-08 22:36] LABS: FERRITIN 747 NG/ML (8-252); TRANSFERRIN IRON PROFILE 177 MG/DL (200-360)
[2016-04-08 23:00] LABS: CREATINE KINASE 92 U/L (26-192)
[2016-04-09] VITALS (16 sets, daily range): BP systolic 132–178; BP diastolic 72–88; PULSE 70–87; RESP 18–24; TEMP 97.6–98.2; O2SAT 90–96
[2016-04-09 00:13] LABS: AMPHETAMINE, URINE NEG (NEG); BARBITURATES, URINE NEG (NEG); COCAINE, URINE NEG (NEG)
[2016-04-09] MEDS: hydrALAZINE HCL 50 MG TAB PO SCH ×2 (06:23→13:06)
[2016-04-09] MEDS: INSULIN ASPART SUPPLEMENTAL SCALE SQ SCH ×2 (06:24→10:26)
[2016-04-09 06:30] LABS: AUTOMATED NEUTROPHIL # 7.8 TH/MM3 (1.8-7.7); BASOPHIL # 0.1 TH/MM3 (0-0.2); BASOPHIL % 0.9 % (0.0-2.0); EOSINOPHIL # 0.3 TH/MM3 (0-0.4); EOSINOPHIL % 3.2 % (0.0-4.0); HEMO FLAGS DIFF FINAL; LYMPH % 9.8 % (9.0-44.0); MEAN CELL VOLUME 94.8 FL (80.0-100.0); MEAN CORPUSCULAR HEMOGLOBIN 32.7 PG (27.0-34.0); MEAN CORPUSCULAR HGB CONC 34.5 % (32.0-36.0); MONO % 6.6 % (0.0-8.0); NEUT % 79.5 % (16.0-70.0); PLATELET COUNT 221 TH/MM3 (150-450); RED BLOOD COUNT 2.42 MIL/MM3 (4.00-5.30); RED CELL DISTRIBUTION WIDTH 15.8 % (11.6-17.2); WHITE BLOOD COUNT 9.8 TH/MM3 (4.0-11.0)
[2016-04-09 06:58] LABS: BICARBONATE 27.5 MEQ/L (21.0-32.0); POTASSIUM 4.8 MEQ/L (3.5-5.1)
[2016-04-09] MEDS: CARVEDILOL 6.25 MG TAB PO SCH (07:35)
[2016-04-09] MEDS: SEVELAMER CARBONATE 800 MG TAB PO SCH ×2 (07:35→13:06)
[2016-04-09] MEDS: ASPIRIN 81 MG CHEW TAB CHEW SCH (07:35)
[2016-04-09] MEDS: ACETAMINOPHEN 325 MG TAB PO PRN (07:35)
[2016-04-09] MEDS: SODIUM CHLORIDE 0.9% FLUSH 5 ML FLUSH FLUSH SCH (07:42)
--- NOTE | 2016-04-09 10:09 | HHI.PR ---
Subjective Remarks f/u; hypertensive emergency resting comfortably with no distress. had HD yesterday. off the nitro drip since yesterday. d/w the RN and no acute issues over night. Objective Vitals Vital Signs Date Time Temp Pulse Resp B/P Pulse Ox O2 Delivery O2 Flow Rate FiO2 04/09/16 09:27 73 04/09/16 08:41 20 04/09/16 08:30 97.8 87 18 174/82 95 04/09/16 08:30 77 04/09/16 07:46 95 21 04/09/16 06:01 79 04/09/16 05:00 78 04/09/16 04:01 76 04/09/16 03:15 98.2 82 24 178/88 90 04/09/16 03:00 79 04/09/16 02:00 76 04/09/16 01:00 74 04/09/16 00:01 77 04/08/16 23:30 98.8 80 18 188/91 90 04/08/16 23:00 75 04/08/16 22:00 75 04/08/16 21:07 94 21 04/08/16 21:00 83 04/08/16 20:15 98.5 83 18 164/77 91 04/08/16 20:00 78 04/08/16 19:00 83 04/08/16 17:00 159/86 04/08/16 16:00 98.6 78 20 182/88 94 I/O 04/08/16 04/08/16 04/08/16 04/09/16 04/09/16 04/09/16 07:00 15:00 23:00 07:00 15:00 23:00 Intake Total 544 ml 480 ml Output Total 3000 ml 0 ml Balance -2456 ml 480 ml Intake Oral 480 ml 480 ml IV Total 64 ml Output Urine Total 0 ml Hemodialysis 3000 ml # Voids 0 # Bowel Movements 0 Result Diagram: 04/09/16 0540 04/09/16 0540 Imaging Last Impressions Chest X-Ray 04/08/16 0409 Signed Impressions: Service Date/Time: Friday, April 08, 2016 04:36 - CONCLUSION: 1. Cardiomegaly and bibasilar atelectasis versus pneumonia Walter Jorgensen MD Objective Remarks GENERAL: This is a well-nourished, well-developed patient, in no apparent distress. CARDIOVASCULAR: Regular rate and regular rhythm without murmurs, gallops, or rubs. RESPIRATORY: Clear to auscultation. Breath sounds equal bilaterally. No wheezes , rales, or rhonchi. GASTROINTESTINAL: Abdomen soft, non-tender, nondistended. Normal, active bowel sounds MUSCULOSKELETAL: Extremities without clubbing, cyanosis, or edema. NEURO: Alert & Oriented x4 to person, place, time, situation. Moves all ext x4 Procedures none Medications and IVs Current Medications Nitroglycerin/ Dextrose (Nitroglycerin-Dextrose Inj) 250 ml @ 0 mls/hr TITRATE ONCE IV Last administered on 04/08/16 04:33; Start 04/08/16 at 04:15; Stop at 04:16; Status DC Furosemide (Lasix Inj) 40 mg ONCE ONCE IV PUSH Last administered on 04/08/16 04:33; Start 04/08/16 at 04:15; Stop 04/08/16 at 04:16; Status DC Morphine Sulfate (Morphine Inj) 4 mg ONCE ONCE IV PUSH Last administered on 05:21; Start 04/08/16 at 05:15; Stop 04/08/16 at 05:16; Status DC Ondansetron HCl (Zofran Inj) 4 mg ONCE ONCE IV PUSH Last administered on 05:20; Start 04/08/16 at 05:15; Stop 04/08/16 at 05:16; Status DC Insulin Human Regular (NovoLIN R INJ) 10 units ONCE ONCE SQ Last administered on 04/08/16 06:29; Start 04/08/16 at 06:15; Stop 04/08/16 at 06:16; Status DC IV Flush (NS Flush) 2 ml UNSCH PRN FLUSH FLUSH AFTER USING IV ACCESS; Start at 06:15 IV Flush (NS Flush) 2 ml BID FLUSH Last administered on 04/09/16 07:42; Start 04/08/16 at 09:00 Naloxone HCl (Narcan Inj) 0.4 mg UNSCH PRN IV SEE LABEL COMMENTS; Start at 06:15 Dextrose (D50w (Vial) Inj) 25 ml UNSCH PRN IV PUSH HYPOGLYCEMIA-SEE COMMENTS; Start 04/08/16 at 06:15 Glucagon (Glucagon Inj) 1 mg UNSCH PRN OTHER HYPOGLYCEMIA-SEE COMMENTS; Start 04/08/16 at 06:15 Insulin Aspart (NovoLOG SUPPLEMENTAL SCALE) 1 ACHS SLIDING SCALE SQ Last administered on 04/09/16 06:24; Start 04/08/16 at 07:00 Amlodipine Besylate (Norvasc) 10 mg DAILY PO Last administered on 04/09/16 07: 35; Start 04/08/16 at 11:00 Sevelamer Carbonate (Renvela) 800 mg TID PO Last administered on 04/09/16 07: 35; Start 04/08/16 at 13:00 Hydralazine HCl (Apresoline) 50 mg Q8HR PO Last administered on 04/09/16 06:23 ; Start 04/08/16 at 14:00 Aspirin (Aspirin Chew) 81 mg DAILY CHEW Last administered on 04/09/16 07:35; Start 04/08/16 at 11:00 Acetaminophen (Tylenol) 650 mg Q4H PRN PO FEVER/ HEADACHE Last administered on 04/09/16 07:35; Start 04/08/16 at 11:00 Albuterol/ Ipratropium (Duoneb Neb) 1 ampule Q6HR NEB PRN NEB SHORTNESS OF BREATH; Start 04/08/16 at 11:45 Epoetin Jose 84467 units 10,000 units ONCE ONCE IV Last administered on 12:32; Start 04/08/16 at 12:00; Stop 04/08/16 at 12:17; Status DC Sodium Chloride (NS 1000 ml Inj) 1,000 ml @ 0 mls/hr Q0M PRN IV For Prime & Rinse Back Last administered on 04/08/16 12:29; Start 04/08/16 at 11:55 Heparin Sodium (Porcine) 8000 units 8,000 units UNSCH PRN IVF WITH DIALYSIS Last administered on 04/08/16 12:30; Start 04/08/16 at 12:00 Sodium Chloride 1,000 ml @ 200 mls/hr Q5H PRN IV WITH DIALYSIS Last administered on 04/08/16 12:30; Start 04/08/16 at 11:55 Sodium Chloride (NS 1000 ml Inj) 1,000 ml @ 0 mls/hr Q0M PRN IV WITH DIALYSIS; Start 04/08/16 at 11:55 Mannitol (Mannitol Inj) 12.5 gm UNSCH PRN IV WITH DIALYSIS; Start 04/08/16 at 12:00 Albumin Human (Albumin 25% Inj) 25 gm UNSCH PRN IV WITH DIALYSIS; Start at 12:00 IV Flush (NS Flush) 5 ml UNSCH PRN IVF WITH DIALYSIS; Start 04/08/16 at 12:00 Heparin Sodium (Porcine) (Heparin Inj) UNSCH PRN .XX WITH DIALYSIS; Start at 12:00 Gentamicin Sulfate (Gentamicin (Dialysis) Inj) 20 mg UNSCH PRN IV WITH DIALYSIS ; Start 04/08/16 at 12:00 Ondansetron HCl (Zofran Inj) 4 mg UNSCH PRN IV WITH DIALYSIS; Start 04/08/16 at 12:00 Acetaminophen (Tylenol) 650 mg UNSCH PRN PO for headach, pain, temp > 101F; Start 04/08/16 at 12:00 Diphenhydramine HCl (Benadryl) 25 mg UNSCH PRN PO for hives/itching/anaphylaxis ; Start 04/08/16 at 12:00 Nitroglycerin (Nitrostat Sl) 0.4 mg UNSCH PRN SL CHEST PAIN; Start 04/08/16 at 12:00 Clonidine (Catapres) 0.1 mg UNSCH PRN PO for BP > 180/100 X 2 readings Last administered on 04/08/16 17:31; Start 04/08/16 at 12:00 Gelatin (Gelfoam 12 Mm/7 Mm Top) 1 foam UNSCH PRN TOP SEE LABEL COMMENTS Last administered on 04/08/16 12:32; Start 04/08/16 at 12:00 Atorvastatin Calcium (Lipitor) 80 mg HS PO Last administered on 04/08/16 20:36 ; Start 04/08/16 at 21:00 Carvedilol (Coreg) 6.25 mg Q12HR PO Last administered on 04/09/16 07:35; Start 04/08/16 at 21:00 Hydralazine HCl (Apresoline Inj) 10 mg Q4H PRN IV PUSH SBP>160, DBP>90 Last administered on 04/09/16 01:11; Start 04/08/16 at 16:00 A/P Assessment and Plan A/P - hypertensive emergency with history of ESRD-on HD off nitro-drip- resumed amlodipine and hydralazine- added coreg nephrology consult appreciated. patient walking with no respiratory distress and hypoxemia- stable on RA. -elevated troponin- likely due to ESRD/ uncontrolled hypertension continue aspirin- echo pending- cardiology consult appreciated. -anemia of chronic disease- will monitor -diabetes mellitus; accu-check with SSI -DVT prophylaxis with SCD's Discharge Planning dc home when ok with nephrology and cardiology. Kika Fernandes MD Apr 09, 2016 10:09
[2016-04-09] MEDS ORDERED: HYDR50TA15 PO (10:12)
[2016-04-09] MEDS ORDERED: CARV6.25 PO (10:12)
[2016-04-09] MEDS ORDERED: Aspirin Chew CHEW (10:14)
--- NOTE | 2016-04-09 13:22 | EC ---
Study Study Date:04/09/2016 STUDY CONCLUSIONS SUMMARY - Procedure narrative: Transthoracic echocardiography. Image quality was fair. Scanning was performed from the parasternal, apical, and subcostal acoustic windows. - Left ventricle: The cavity size was normal. Wall thickness was increased in a pattern of moderate LVH. Systolic function was normal. The estimated ejection fraction was in the range of 60% to 65%. Wall motion was normal; there were no regional wall motion abnormalities. - Mitral valve: Moderately to severely calcified annulus. - Tricuspid valve: Trace regurgitation. If LV function is below 40, please consider prescribing an ACEI or ARB or document rationale for non-use. PROCEDURE DATA STUDY STATUS: Elective. Procedure: Transthoracic echocardiography. Image quality was fair. Scanning was performed from the parasternal, apical, and subcostal acoustic windows. Study completion: The patient tolerated the procedure well. Transthoracic echocardiography. M-mode, complete 2D, complete spectral Doppler, and color Doppler. Height: Height: 66in. Weight: Weight: 219.5lb. Body mass index: BMI: 35.5kg/m^2. Body surface area: BSA: 2.08m^2. Patient status: Inpatient. CARDIAC ANATOMY LEFT VENTRICLE: The cavity size was normal. Wall thickness was increased in a pattern of moderate LVH. Systolic function was normal. The estimated ejection fraction was in the range of 60% to 65%. Wall motion was normal; there were no regional wall motion abnormalities. AORTIC VALVE: Trileaflet; normal thickness leaflets. Doppler: Transvalvular velocity was within the normal range. There was no stenosis. No regurgitation. Valve area: 2.78cm^2(VTI). Indexed valve area: 1.34cm^2/m^2 (VTI). Valve area: 2.6cm^2 (Vmax). Indexed valve area: 1.25cm^2/m^2 (Vmax). Mean gradient: 8mm Hg (S). Peak gradient: 15mm Hg (S). AORTA: Aortic root: The aortic root was normal in size. MITRAL VALVE: Moderately to severely calcified annulus. Doppler: Transvalvular velocity was within the normal range. There was no evidence for stenosis. No regurgitation. Peak gradient: 6mm Hg (D). LEFT ATRIUM: The atrium was normal in size. RIGHT VENTRICLE: The cavity size was normal. Wall thickness was normal. PULMONIC VALVE: Doppler: Transvalvular velocity was within the normal range. There was no evidence for stenosis. No regurgitation. TRICUSPID VALVE: Structurally normal valve. Doppler: Transvalvular velocity was within the normal range. Trace regurgitation. PULMONARY ARTERY: The main pulmonary artery was normal-sized. Systolic pressure was within the normal range. RIGHT ATRIUM: The atrium was normal in size. PERICARDIUM: There was no pericardial effusion. SYSTEMIC VEINS: Inferior vena cava: The vessel was normal in size. Patient weight: 219.5lb _Ejection fraction:_ 65-75% _Fractional shortening:_ 32% up to 5Kg 5-11.5Kg 11.6-22.9Kg 23-45Kg 45-57Kg Aortic Root 7-13 <17 13-22 17-27 17-27 LA diam 6-13 <23 24-38 33-47 37-40 RVID 10-17 7-15 7-15 7-18 8-17 LVIDd 12-22 <32 24-38 33-47 37-40 LVPW 2-4 3-6 5-7 6-8 7-8 IVS 2-4 3-6 5-7 6-8 7-8 BASIC MEASUREMENTS ADULT NORMAL Left ventricle LV internal dimension, ED, chordal *52.9 mm 43-52 level, PLAX LV internal dimension, ES, chordal 35.3 mm 23-38 level, PLAX Fractional shortening, chordal level, 33 % >29 PLAX LV posterior wall thickness, ED 16.7 mm IVS/LVPW ratio, ED 0.99 <1.3 Ventricular septum Septal thickness, ED 16.6 mm Aortic valve Leaflet separation 21 mm 15-26 Aorta Root diameter, ED 34 mm Left atrium Anterior-posterior dimension 33 mm Anterior-posterior dimension index 1.59 cm/m^2 <2.2 BASIC MEASUREMENTS ADULT NORMAL Aortic valve Leaflet separation 21 mm 15-26 DOPPLER MEASUREMENTS ADULT NORMAL Aortic valve Peak velocity, S 193 cm/s Mean velocity, S 133 cm/s VTI, S 35 cm Mean gradient, S 8 mm Hg Peak gradient, S 15 mm Hg Valve area, VTI 2.78 cm^2 Valve area index, VTI 1.34 cm^2/m^2 Valve area, Vmax 2.6 cm^2 Valve area index, Vmax 1.25 cm^2/m^2 Mitral valve Peak E-wave velocity 122 cm/s Peak A-wave velocity 151 cm/s Deceleration time *261 ms 150-230 Peak gradient, D 6 mm Hg Peak E/A ratio 0.8 Pulmonic valve Peak velocity, S 84.2 cm/s LEGEND: Mean values are shown as u=mean value. Asterisk (*) barry values outside specified normal range. Prepared and signed by Tu Rodriguez [id number]
--- NOTE | 2016-04-09 14:09 | PD.CARD.PN ---
Subjective Subjective Remarks No chest pain, no shortness of breath, feels better Objective Medications Current Medications Medications (Trade) Dose Ordered Sig/Shaun Route Start Time Stop Time Status Last Admin (NS Flush) 2 ml UNSCH PRN FLUSH 04/08/16 06:15 (NS Flush) 2 ml BID FLUSH 04/08/16 09:00 04/09/16 07:42 (Narcan Inj) 0.4 mg UNSCH PRN IV 04/08/16 06:15 (D50w (Vial) Inj) 25 ml UNSCH PRN IV PUSH 04/08/16 06:15 (Glucagon Inj) 1 mg UNSCH PRN OTHER 04/08/16 06:15 (Norvasc) 10 mg DAILY PO 04/08/16 11:00 04/09/16 07:35 (Renvela) 800 mg TID PO 04/08/16 13:00 04/09/16 13:06 (Apresoline) 50 mg Q8HR PO 04/08/16 14:00 04/09/16 13:06 (Aspirin Chew) 81 mg DAILY CHEW 04/08/16 11:00 04/09/16 07:35 Acetaminophen 650 mg 650 mg Q4H PRN PO 04/08/16 11:00 04/09/16 07:35 (NS 1000 ml Inj) 1,000 ml @ 0 mls/hr Q0M PRN IV 04/08/16 11:55 04/08/16 12:29 Heparin Sodium (Porcine) 8000 units 8,000 units UNSCH PRN IVF 04/08/16 12:00 04/08/16 12:30 Sodium Chloride 1,000 ml @ 200 mls/hr Q5H PRN IV 04/08/16 11:55 04/08/16 12:30 (NS 1000 ml Inj) 1,000 ml @ 0 mls/hr Q0M PRN IV 04/08/16 11:55 (Mannitol Inj) 12.5 gm UNSCH PRN IV 04/08/16 12:00 (Albumin 25% Inj) 25 gm UNSCH PRN IV 04/08/16 12:00 (NS Flush) 5 ml UNSCH PRN IVF 04/08/16 12:00 (Heparin Inj) UNSCH PRN .XX 04/08/16 12:00 (Gentamicin (Dialysis) Inj) 20 mg UNSCH PRN IV 04/08/16 12:00 (Zofran Inj) 4 mg UNSCH PRN IV 04/08/16 12:00 (Tylenol) 650 mg UNSCH PRN PO 04/08/16 12:00 (Benadryl) 25 mg UNSCH PRN PO 04/08/16 12:00 (Nitrostat Sl) 0.4 mg UNSCH PRN SL 04/08/16 12:00 (Catapres) 0.1 mg UNSCH PRN PO 04/08/16 12:00 04/08/16 17:31 (Gelfoam 12 Mm/7 Mm Top) 1 foam UNSCH PRN TOP 04/08/16 12:00 04/08/16 12:32 (Lipitor) 80 mg HS PO 04/08/16 21:00 04/08/16 20:36 (Coreg) 6.25 mg Q12HR PO 04/08/16 21:00 04/09/16 07:35 (Apresoline Inj) 10 mg Q4H PRN IV PUSH 04/08/16 16:00 04/09/16 01:11 Vital Signs / I&O Vital Signs Date Time Temp Pulse Resp B/P Pulse Ox O2 Delivery O2 Flow Rate FiO2 04/09/16 13:43 72 04/09/16 12:02 70 04/09/16 11:51 71 04/09/16 11:51 97.6 75 18 132/72 94 04/09/16 10:10 79 04/09/16 09:27 73 04/09/16 08:41 20 04/09/16 08:30 97.8 87 18 174/82 95 04/09/16 08:30 77 04/09/16 07:46 95 21 04/09/16 06:01 79 04/09/16 05:00 78 04/09/16 04:01 76 04/09/16 03:15 98.2 82 24 178/88 90 04/09/16 03:00 79 04/09/16 02:00 76 04/09/16 01:00 74 04/09/16 00:01 77 04/08/16 23:30 98.8 80 18 188/91 90 04/08/16 23:00 75 04/08/16 22:00 75 04/08/16 21:07 94 21 04/08/16 21:00 83 04/08/16 20:15 98.5 83 18 164/77 91 04/08/16 20:00 78 04/08/16 19:00 83 04/08/16 17:00 159/86 04/08/16 16:00 98.6 78 20 182/88 94 I/O 04/08/16 04/08/16 04/08/16 04/09/16 04/09/16 04/09/16 07:00 15:00 23:00 07:00 15:00 23:00 Intake Total 544 ml 480 ml Output Total 3000 ml 0 ml Balance -2456 ml 480 ml Intake Oral 480 ml 480 ml IV Total 64 ml Output Urine Total 0 ml Hemodialysis 3000 ml # Voids 0 # Bowel Movements 0 Physical Exam GENERAL: NAD, AAOx3 SKIN: Warm and dry. HEAD: Atraumatic. Normocephalic. EYES: Pupils equal and round. No scleral icterus. No injection or drainage. ENT: No nasal bleeding or discharge. Mucous membranes pink and moist. NECK: Trachea midline. No JVD. CARDIOVASCULAR: Regular rate and rhythm. RESPIRATORY: No accessory muscle use. Decreased breath sounds bilaterally GASTROINTESTINAL: Abdomen soft, non-tender, nondistended. Hepatic and splenic margins not palpable. MUSCULOSKELETAL: Extremities without clubbing, cyanosis, or edema. No obvious deformities. NEUROLOGICAL: Awake and alert. No obvious cranial nerve deficits. Motor grossly within normal limits. Five out of 5 muscle strength in the arms and legs. Normal speech. PSYCHIATRIC: Appropriate mood and affect; insight and judgment normal. Laboratory Laboratory Tests Test 04/08/16 04/08/16 04/09/16 15:35 21:54 05:40 Total Creatine Kinase 126 U/L 92 U/L Troponin I 0.75 NG/ML 0.69 NG/ML 25-Hydroxy Vitamin D Total 27.2 ng/ML Parathyroid Hormone (Intact) 426.5 PG/ML Iron Level 23 MCG/DL Total Iron Binding Capacity 248 MCG/DL Percent Iron Saturation 9.3 % Ferritin 747 NG/ML White Blood Count 9.8 TH/MM3 Red Blood Count 2.42 MIL/MM3 Hemoglobin 7.9 GM/DL Hematocrit 23.0 % Mean Corpuscular Volume 94.8 FL Mean Corpuscular Hemoglobin 32.7 PG Mean Corpuscular Hemoglobin 34.5 % Concent Red Cell Distribution Width 15.8 % Platelet Count 221 TH/MM3 Mean Platelet Volume 8.9 FL Neutrophils (%) (Auto) 79.5 % Lymphocytes (%) (Auto) 9.8 % Monocytes (%) (Auto) 6.6 % Eosinophils (%) (Auto) 3.2 % Basophils (%) (Auto) 0.9 % Neutrophils # (Auto) 7.8 TH/MM3 Lymphocytes # (Auto) 1.0 TH/MM3 Monocytes # (Auto) 0.6 TH/MM3 Eosinophils # (Auto) 0.3 TH/MM3 Basophils # (Auto) 0.1 TH/MM3 CBC Comment DIFF FINAL Differential Comment Sodium Level 135 MEQ/L Potassium Level 4.8 MEQ/L Chloride Level 98 MEQ/L Carbon Dioxide Level 27.5 MEQ/L Anion Gap 10 MEQ/L Blood Urea Nitrogen 42 MG/DL Creatinine 7.38 MG/DL Estimat Glomerular Filtration 6 ML/MIN Rate Random Glucose 178 MG/DL Calcium Level 9.1 MG/DL Assessment and Plan Problem List: (1) Elevated troponin (2) Hypertensive emergency (3) Fluid overload (4) Anemia (5) Non-compliance (6) ESRD (end stage renal disease) Assessment and Plan 1) Elevated troponin most likely due to hypertensive emergency, fluid overload state from stopping dialysis early and non-compliance 2) Blood pressure better controlled today, nitro drip off 3) EF 60-65%, LVH, no wall motion abnormalities 4) I discussed with Ryanne her overall non-compliance, especially with HD and fluid restriction, she appears to understand 5) Although I feel the troponin is a secondary elevation, I offered to her an ischemic evaluation, with a preference for stress testing... She would not like to undergo stress testing or cardiac catheterization, but would like to continue medical management 6) Per the nurse, her is very involved in her medical decisions... I called her Bandar and explained about the risk/benefits of ischemic evaluation vs medical management, he agreed on medical management 7) I explained to both of them that Ryanne needs to start taking care of herself , stop with non-compliance, as she will have significant risk from a cardiovascular standpoint for the longer term 8) Will continue with medical management, may be discharged from a cardiovascular standpoint Jasvir Torres DO Apr 09, 2016 14:09
[2016-04-09] MEDS ORDERED: LIPI80TA PO (14:19)
--- NOTE | 2016-04-09 14:22 | HHI.DCPOC ---
Discharge Care Plan Diagnosis: (1) Noncompliance w/medication treatment due to intermit use ofmedication (2) ESRD (end stage renal disease) (3) Hypertensive emergency Your Health Problems Are: Shortness of Breath Goals to Promote Your Health * To prevent worsening of your condition and complications * To maintain your health at the optimal level Directions to Meet Your Goals Take your medications as prescribed Follow your dietary instruction Follow activity as directed Keep your appointments as scheduled Take your immunizations and boosters as scheduled If your symptoms worsen call your PCP, if no PCP go to Urgent Care Center or Emergency Room Smoking is Dangerous to Your Health. Avoid second hand smoke Call the 24-hour hour crisis hotline for domestic abuse at Kika Fernandes MD Apr 09, 2016 14:22
--- NOTE | 2016-04-09 14:23 | HHI.DS ---
Discharge Summary Admission Date Apr 08, 2016 at 06:12 Discharge Date: Apr 09, 2016 Admitting Diagnosis Hypertensive Emergency, Chronic renal failure on hemodialysis (1) Hypertensive emergency ICD Code: I16.1 Diagnosis: Principal (2) ESRD (end stage renal disease) ICD Code: N18.6 Diagnosis: Principal (3) Elevated troponin ICD Code: R74.8 Diagnosis: Principal Procedures none Brief History - From Admission patient is a 56 y/o female with history of ESRD-on HD ( TTS schedule), diabetes and hypertension presented to ER with sob. she says that she woke up with sob this morning. she denies any cough, fever, chest pain, nausea or vomiting. she says that she had her last HD on Thursday. she says that she's taking her medications but her BP is normally on ' high side'.she was started on Nitro drip in ER. she has moved from [place] . CBC/BMP: 04/09/16 0540 04/09/16 0540 Significant Findings Laboratory Tests Test 04/08/16 04/08/16 04/08/16 04/08/16 04:25 04:30 05:10 15:35 Red Blood Count 2.39 MIL/MM3 (4.00-5.30) Hemoglobin 7.7 GM/DL (11.6-15.3) Hematocrit 23.1 % (35.0-46.0) Neutrophils (%) (Auto) 84.9 % (16.0-70.0) Lymphocytes (%) (Auto) 6.8 % (9.0-44.0) Neutrophils # (Auto) 9.2 TH/MM3 (1.8-7.7) Lymphocytes # (Auto) 0.7 TH/MM3 (1.0-4.8) Activated Partial 23.6 SEC Thromboplast Time (24.3-30.1) Sodium Level 133 MEQ/L (136-145) Carbon Dioxide Level 20.4 MEQ/L (21.0-32.0) Blood Urea Nitrogen 78 MG/DL (7-18) Creatinine 10.44 MG/DL (0.50-1.00) Estimat Glomerular Filtration 4 ML/MIN (>89) Rate Random Glucose 460 MG/DL (74-106) Magnesium Level 2.7 MG/DL (1.5-2.5) Troponin I 0.71 NG/ML 0.75 NG/ML (0.02-0.05) (0.02-0.05) B-Type Natriuretic Peptide 1210 PG/ML (0-100) Urine Protein 300 mg/dL (NEG-TRACE) Urine Glucose (UA) 1000 mg/dL (NEG) Urine Occult Blood TRACE (NEG) Blood Gas HCO3 19 mmol/L (22-26) Blood Gas Base Excess -5.8 mmol/L (-2-2) Blood Gas Oxygen Saturation 89 % (90-100) Arterial Blood pH 7.35 (7.380-7.420) Arterial Blood Partial 35 mmHg (38-42) Pressure CO2 Arterial Blood Methemoglobin 2.1 % (0-2) 25-Hydroxy Vitamin D Total 27.2 ng/ML (30-100) Parathyroid Hormone (Intact) 426.5 PG/ML (12.4-76.8) Test 04/08/16 04/09/16 21:54 05:40 Iron Level 23 MCG/DL (50-170) Total Iron Binding Capacity 248 MCG/DL (250-450) Percent Iron Saturation 9.3 % (20-50) Ferritin 747 NG/ML (8-252) Troponin I 0.69 NG/ML (0.02-0.05) Red Blood Count 2.42 MIL/MM3 (4.00-5.30) Hemoglobin 7.9 GM/DL (11.6-15.3) Hematocrit 23.0 % (35.0-46.0) Neutrophils (%) (Auto) 79.5 % (16.0-70.0) Neutrophils # (Auto) 7.8 TH/MM3 (1.8-7.7) Sodium Level 135 MEQ/L (136-145) Blood Urea Nitrogen 42 MG/DL (7-18) Creatinine 7.38 MG/DL (0.50-1.00) Estimat Glomerular Filtration 6 ML/MIN (>89) Rate Random Glucose 178 MG/DL (74-106) Imaging Last Impressions Chest X-Ray 04/08/16 [id number] Signed Impressions: Service Date/Time: Friday, April 08, 2016 04:36 - CONCLUSION: 1. Cardiomegaly and bibasilar atelectasis versus pneumonia Walter Jorgensen MD PE at Discharge GENERAL: This is a well-nourished, well-developed patient, in no apparent distress. CARDIOVASCULAR: Regular rate and regular rhythm without murmurs, gallops, or rubs. RESPIRATORY: Clear to auscultation. Breath sounds equal bilaterally. No wheezes , rales, or rhonchi. GASTROINTESTINAL: Abdomen soft, non-tender, nondistended. Normal, active bowel sounds MUSCULOSKELETAL: Extremities without clubbing, cyanosis, or edema. NEURO: Alert & Oriented x4 to person, place, time, situation. Moves all ext x4 Hospital Course - hypertensive emergency with history of ESRD-on HD off nitro-drip- resumed amlodipine and hydralazine- added coreg nephrology consult appreciated. -elevated troponin- likely due to ESRD/ uncontrolled hypertension continue aspirin- cardiology consult appreciated. per the discussion with the patient and family medical management was recommended at this point. -anemia of chronic disease- stable. -diabetes mellitus; accu-check with SSI -DVT prophylaxis with SCD's Pt Condition on Discharge: Fair Discharge Disposition: Discharge Home Discharge Time: <= 30 minutes Discharge Instructions DIET: Follow Instructions for: Diabetic Diet, Renal Failure Diet Activities you can perform: Regular-No Restrictions Follow up Referrals: PCP Follow-up New Medications: Atorvastatin (Lipitor) 80 Mg Tab 80 MG PO HS high cholesterol Days 30 Ref 0 TAB Carvedilol (Coreg) 6.25 Mg Tab 6.25 MG PO Q12HR hypertension Days 30 Ref 0 TAB Hydralazine (Hydralazine) 50 Mg Tab 50 MG PO Q8HR hypertension Days 30 Ref 0 TAB ([Aspirin Chew]) 81 MG CHEW 81 MG CHEW DAILY antiplatelet Days 30 Ref 0 TAB.CHEW Continued Medications: Amlodipine (Amlodipine) 10 Mg Tab 10 MG PO DAILY Blood Pressure Management #30 Ref 0 TAB Glyburide (Glyburide) 5 Mg Tab 5 MG PO DAILY Take with meals at the same time each day Blood Sugar Management # 30 Ref 0 TAB Sevelamer Carbonate (Renvela) 800 Mg Tab 800 MG PO TID Control phosphorous levels #90 Ref 0 TAB Discontinued Medications: Hydralazine (Hydralazine) 50 Mg Tab 50 MG PO BID Take with a meal Blood Pressure Management Ref 0 TAB Hydralazine (Hydralazine) 25 Mg Tab 25 MG PO TID Take with a meal Blood Pressure Management #90 Ref 0 TAB Kika Fernandes MD Apr 09, 2016 14:23
--- NOTE | 2016-04-12 13:44 | PQ ---
Physician Query Response Document PATIENT: JACIEL CHANCE : 1960 ADMIT DATE: 04/08/2016 6:12 AM DISCH DATE: 04/09/2016 3:37 PM RESPONDING PROVIDER #: [email or web address] QUERY TEXT: Clarification of Clinical Diagnostic Findings Please clarify documentation or clinical relevance for the clinical / diagnostic findings or whether those are insignificant or unable to be further specified. 1) N-STEMI PRESENT 2) N-STEMI RULED OUT 3) N-STEMI NOT PRESENT 4) OTHER , PLEASE EXPLAIN The patient's Clinical Indicators include: NE H -elevated troponin- due to ESRD? start aspirin- check the trend and consult cardiology PER CARDIOLOGY CONSULT: 1. N-STEMI most likely type 2 due to excessive hypertension, fluid overload state from end stage erendira l disease and non compliance TROPONIN=0.71, 0.75, 0.69 CK-MB=2.2 EKG- CAN'T EXCLUDE ANTEROSEPTAL WA Query created by: Cindy Rich on 04/09/2016 10:23 AM RESPONSE TEXT: NSTEMI due to fluid overload/ excessive hypertension Electronically signed by: Kika Fernandes MD 04/12/2016 1:40 PM
== END 2016-04-09 15:37 | disposition home or self-care (01) | DRG 280 ==
LOC: NEPC 03:43 → NEDA 06:12 → HCPC 08:21
PROVIDERS: ADMIT Internal Medicine; ATTEND Internal Medicine
PROC: 5A1D00Z (ICD-10-PCS; principal; 2016-04-08)
DX: I21.4 Non-ST elevation (NSTEMI) myocardial infarction (principal); I12.0 Hypertensive chronic kidney disease with stage 5 chronic kidney disease or end stage renal disease; N18.6 End stage renal disease; E11.22 Type 2 diabetes mellitus with diabetic chronic kidney disease; Z79.84 Long term (current) use of oral hypoglycemic drugs; E87.70 Fluid overload, unspecified; E87.1 Hypo-osmolality and hyponatremia; I16.1 Hypertensive emergency; D63.8 Anemia in other chronic diseases classified elsewhere; Z91.19 Patient's noncompliance with other medical treatment and regimen; Z91.15 Patient's noncompliance with renal dialysis; Z91.14 Patient's other noncompliance with medication regimen; Z99.2 Dependence on renal dialysis
CPT/HCPCS: 36600; 71010; 76937; 80048; 80053; 80307; 81001; 82010; 82306; 82550; 82552; 82728; 82805; 82948; 83540; 83550; 83735; 83880; 83970; 84484; 85025; 85610; 85730; 90935; 93005; 93306; 96374; 96375; J0360; J1644; J1815; J1940; J2270; J2405; J7030; Q4081

== ENCOUNTER 2016-04-25 03:48 | Emergency (ER) | payer MEDICARE, OTHER ==
[~2016-04-25] VITALS: Ht 160 cm; Wt 100.0 kg
[~2016-04-25 03:48] MED LIST: AMLO10TA2 PO; Aspirin Chew CHEW; CARV6.25 PO; GLYB5TAB3 PO; HYDR50TA15 PO; LIPI80TA PO; SEVEL800 PO
[2016-04-25 03:57] VITALS: BP 145/105; PULSE 70; RESP 16; TEMP 98.6; O2SAT 98
[2016-04-25] MEDS ORDERED: oxyCODONE/ACETAMINOPHEN 5 MG/325 MG TAB PO ONE (04:30)
--- NOTE | 2016-04-25 06:30 | RADRPT ---
EXAM DATE/TIME: 04/25/2016 04:33 [facility] COMPARISON: No previous studies available for comparison. INDICATIONS : Left foot pain. MEDICAL HISTORY : None. SURGICAL HISTORY : None. ENCOUNTER: Initial ACUITY: 2 days PAIN SCORE: 3/10 LOCATION: Left foot. FINDINGS: There is a minimally displaced fracture involving the fifth toe proximal phalanx with a transverse co mponent involving the proximal diaphyseal region notable for a couple of millimeters of lateral displ acement of the distal fragment. There is moderate soft tissue swelling involving the forefoot. No oth er fractures identified. CONCLUSION: Fifth toe fracture. Remington Restrepo MD on April 25, 2016 at 6:27 Board Certified Radiologist. This report was verified electronically.
--- NOTE | 2016-04-25 06:31 | RADRPT ---
EXAM DATE/TIME: 04/25/2016 04:36 [facility] COMPARISON: No previous studies available for comparison. INDICATIONS : Trauma, fall. MEDICAL HISTORY : None. SURGICAL HISTORY : None. ENCOUNTER: Initial ACUITY: 2 days PAIN SCORE: 8/10 LOCATION: Left hip. FINDINGS: A two view examination of the left hip was performed. The primary and secondary trabecular pattern o f the femoral neck is intact. The hip joint is of normal width without significant sclerosis or bony hypertrophy. The acetabulum is grossly intact. CONCLUSION: Unremarkable examination of the left hip. Remington Restrepo MD on April 25, 2016 at 6:29 Board Certified Radiologist. This report was verified electronically.
--- NOTE | 2016-04-25 07:38 | PD ---
HPI Chief Complaint: Hip Injury Time Seen by Provider: 04:24 Travel History International Travel<30 days: No Contact w/Intl Traveler<30days: No Traveled to known affect area: No History of Present Illness HPI Patient is a 56 year old female who comes in complaining of hip and foot pain after a fall yesterday. She says that she tripped over her dog and fell on her left side. She was able to get up and walk around afterwards. She denies any LOC. She denies chest pain, SOB, dizziness. She complains of pain to the left foot and hip. PFSH Past Medical History Diabetes: Yes Patient Takes Glucophage: Yes Hypertension: Yes Tetanus Vaccination: Unknown ?: Not : 1 Miscarriage: 1 Past Surgical History Other Surgery: Yes (LT FOREARM FISTULA) Social History Alcohol Use: No Tobacco Use: No Substance Use: No Allergies-Medications (Allergen,Severity, Reaction): Coded Allergies: No Known Allergies (Unverified , 04/08/16) Reported Meds & Prescriptions Reported Meds & Active Scripts Active Lortab (Hydrocodone-Acetaminophen) 5-325 Mg Tab 1 Tab PO Q6H PRN Lipitor (Atorvastatin Calcium) 80 Mg Tab 80 Mg PO HS 30 Days [Aspirin Chew] 81 MG Chew 81 Mg CHEW DAILY 30 Days Hydralazine (Hydralazine HCl) 50 Mg Tab 50 Mg PO Q8HR 30 Days Coreg (Carvedilol) 6.25 Mg Tab 6.25 Mg PO Q12HR 30 Days Reported Amlodipine (Amlodipine Besylate) 10 Mg Tab 10 Mg PO DAILY Glyburide 5 Mg Tab 5 Mg PO DAILY Take with meals at the same time each day Renvela (Sevelamer Carbonate) 800 Mg Tab 800 Mg PO TID Review of Systems General / Constitutional: No: Fever, Chills HENT: No: Headaches, Lightheadedness Cardiovascular: No: Chest Pain or Discomfort Respiratory: No: Shortness of Breath Gastrointestinal: No: Nausea, Vomiting Musculoskeletal: Positive: Pain Skin: No Rash, No Change in Pigmentation Neurologic: No: Weakness, Dizziness Physical Exam Narrative GENERAL: Awake and alert, in no acute distress. SKIN: Warm and dry. HEAD: Atraumatic. Normocephalic. EYES: Pupils equal and round. No scleral icterus. ENT: No nasal bleeding or discharge. Mucous membranes pink and moist. NECK: Trachea midline. No JVD. No cervical spine tenderness. CARDIOVASCULAR: Regular rate and rhythm. No murmur appreciated. RESPIRATORY: No accessory muscle use. Clear to auscultation. Breath sounds equal bilaterally. MUSCULOSKELETAL: No obvious deformities. No clubbing. No cyanosis. Tender to palpation of the lateral side of the left foot, edema present. Pedal pulses intact. Pain with internal rotation of the left hip. NEUROLOGICAL: Awake and alert. No obvious cranial nerve deficits. Motor grossly within normal limits. Normal speech. PSYCHIATRIC: Appropriate mood and affect; insight and judgment normal. Data Data Last Documented VS Vital Signs Date Time Temp Pulse Resp B/P Pulse Ox O2 Delivery O2 Flow Rate FiO2 04/25/16 03:57 98.6 70 16 145/105 98 Orders Hip, Uni(Ap&Lat) Wo Ap Pelvis (04/25/16 ) Foot, Complete ([id number]) (04/25/16 ) Oxycodone-Acetamin 5-325 Mg (Percocet (04/25/16 04:30) Support Splint (04/25/16 06:40) MDM Medical Decision Making Medical Screen Exam Complete: Yes Emergency Medical Condition: Yes Differential Diagnosis Foot fracture versus hip fracture versus musculoskeletal strain. Narrative Course Patient is a 56-year-old female who comes in complaining of foot pain and hip pain after a fall yesterday. Exam shows swelling and tenderness to the left foot. Patient given Percocet for pain. X-ray of the hip and foot obtained. X- ray shows fracture of the fifth proximal phalanx. X-ray of the hip is negative for any abnormalities. Patient did say she hit her head, but is refusing has history of this time. She has no neurologic abnormalities. Toes leonora taped and patient given orthopedic shoe. Advised to wear the shoe and keep her toes taped for the next 2 weeks. Advised follow-up with her doctor. Given a prescription for pain medicine. Advised to return to the ED as needed for any worsening symptoms. Diagnosis Primary Impression: Toe fracture, left Qualified Code: S92.515A - Closed nondisplaced fracture of proximal phalanx of lesser toe of left foot, initial encounter Patient Instructions: General Instructions, Toe Fracture (ED) Additional Instructions: Wear the orthopedic shoe for the next 2 weeks and keep your toes taped together. Take Lortab as needed for pain. Follow up with your doctor. Return to the Ed as needed for any worsening symptoms. Scripts Glyburide 5 Mg Tab5 Mg PO TIDPC #60 TAB Ref 0 Take with meals at the same time each day Prov:Ani Branham MD 04/25/16 Amlodipine 10 Mg Tab10 Mg PO DAILY #30 TAB Ref 0 Prov:Ani Branham MD 04/25/16 Hydrocodone-Acetaminophen (Lortab)5-325 Mg Tab1 Tab PO Q6H PRN (PAIN) #10 TAB Ref 0 Prov:Ani Branham MD 04/25/16 Disposition: 01 DISCHARGE HOME Condition: Stable Ani Branham MD Apr 25, 2016 07:38
[2016-04-25] MEDS ORDERED: HYDR-3533 PO (07:41)
[2016-04-25] MEDS ORDERED: GLYB5TAB3 PO (07:47)
[2016-04-25] MEDS ORDERED: AMLO10TA2 PO (07:47)
[2016-04-25 08:00] VITALS: BP 137/79
== END 2016-04-25 08:23 | disposition home or self-care (01) ==
LOC: NEPE 03:48
DX: S92.515A Nondisplaced fracture of proximal phalanx of left lesser toe(s), initial encounter for closed fracture (principal); M25.552 Pain in left hip; W18.31XA Fall on same level due to stepping on an object, initial encounter
CPT/HCPCS: 73502; 73630; 99283; L3260

== ENCOUNTER 2016-05-24 10:27 | Inpatient (IN) | payer MEDICARE, OTHER ==
[~2016-05-24] VITALS: Ht 167.6 cm; Wt 110.0 kg
[2016-05-24] VITALS (15 sets, daily range): BP systolic 118–196; BP diastolic 57–100; PULSE 75–93; RESP 16–20; TEMP 97.8–98.2; O2SAT 93–100
[~2016-05-24 10:27] MED LIST changes: +HYDR-3533 PO
--- NOTE | 2016-05-24 10:36 | PD ---
HPI Chief Complaint: altered mental status Time Seen by Provider: 10:32 Travel History International Travel<30 days: No Contact w/Intl Traveler<30days: No Traveled to known affect area: No History of Present Illness HPI 56-year-old female with ESRD on HD brought in by ambulance from dialysis for altered mental status. According to EMS, when the patient arrived to dialysis she wasn't acting like her normal self. During dialysis, after about 2.5 hours , the patient became minimally responsive. Upon EMS arrival the patient was awake and oriented to person only. En route to the hospital, apparently the patient's GCS became 3 with sonorous respirations. BVM was used to assist the patient's respirations at this time, and after a couple of breast the patient woke up. Upon arrival to the emergency department the patient is awake and oriented to person and place. She denies any physical complaints. She denies fevers or recent illness. No chest pain or dyspnea. No abdominal pain. PFSH Past Medical History Diabetes: Yes Hypertension: Yes : 1 Miscarriage: 1 Past Surgical History Other Surgery: Yes (LT FOREARM FISTULA) Social History Alcohol Use: No Tobacco Use: No Substance Use: No Allergies-Medications (Allergen,Severity, Reaction): Coded Allergies: No Known Allergies (Unverified , 04/08/16) Reported Meds & Prescriptions Reported Meds & Active Scripts Active Amlodipine (Amlodipine Besylate) 10 Mg Tab 10 Mg PO DAILY Lortab (Hydrocodone-Acetaminophen) 5-325 Mg Tab 1 Tab PO Q6H PRN Coreg (Carvedilol) 6.25 Mg Tab 6.25 Mg PO Q12HR 30 Days Reported Aspirin Adult Low Strength (Aspirin) 81 Mg Tabdr 81 Mg PO DAILY Vitamin B-12 (Cyanocobalamin) 1,000 Mcg Tab 1,000 Mcg PO DAILY Hydralazine (Hydralazine HCl) 50 Mg Tab 50 Mg PO BID Take with a meal Metoprolol Succinate ER 24 HR (Metoprolol Succinate) 100 Mg Tab 100 Mg PO HS Glyburide 5 Mg Tab 5 Mg PO DAILY Take with meals at the same time each day Renvela (Sevelamer Carbonate) 800 Mg Tab 800 Mg PO TID Take with meals Review of Systems Except as stated in HPI: all other systems reviewed are Neg Physical Exam Narrative GENERAL: Well-developed, well-nourished, awake, no acute distress. SKIN: Warm and dry. HEAD: Atraumatic. Normocephalic. EYES: Pupils equal, round, 3 mm, reactive to light. No scleral icterus. No injection or drainage. ENT: Mucous membranes pink and moist. NECK: Trachea midline. No JVD. No nuchal rigidity. CARDIOVASCULAR: Regular rate and rhythm. Left forearm with dialysis fistula with thrill and bruit. RESPIRATORY: No accessory muscle use. Clear to auscultation. Breath sounds equal bilaterally. GASTROINTESTINAL: Abdomen soft, non-tender, nondistended. MUSCULOSKELETAL: No obvious deformities. No clubbing. No cyanosis. No edema. NEUROLOGICAL: Awake and alert. No obvious cranial nerve deficits. Motor grossly within normal limits. Normal speech. PSYCHIATRIC: Appropriate mood and affect; insight and judgment normal. Data Data Last Documented VS Vital Signs Date Time Temp Pulse Resp B/P Pulse Ox O2 Delivery O2 Flow Rate FiO2 05/24/16 12:13 97.9 80 16 169/79 98 Nasal Cannula 2 Orders Electrocardiogram (05/24/16 10:32) Ammonia (05/24/16 10:32) Complete Blood Count With Diff (05/24/16 10:32) Comprehensive Metabolic Panel (05/24/16 10:32) Creatine Kinase (Cpk) (05/24/16 10:32) Prothrombin Time / Inr (Pt) (05/24/16 10:32) Act Partial Throm Time (Ptt) (05/24/16 10:32) Troponin I (05/24/16 10:32) Thyroid Stimulating Hormone (05/24/16 10:32) Urinalysis - C+S If Indicated (05/24/16 10:32) Chest, Single Ap (05/24/16 10:32) Ct Brain W/O Iv Contrast(Rout) (05/24/16 10:32) Blood Glucose (05/24/16 10:32) Ecg Monitoring (05/24/16 10:32) Iv Access Insert/Monitor (05/24/16 10:32) Oximetry (05/24/16 10:32) Sodium Chloride 0.9% Flush (Ns Flush) (05/24/16 10:45) Drug Screen, Random Urine (05/24/16 10:32) Alcohol (Ethanol) (05/24/16 10:32) Salicylates (Aspirin) (05/24/16 10:32) Tylenol (Acetaminophen) (05/24/16 10:32) Arterial Blood Gas (Abg) (05/24/16 ) Type And Screen (05/24/16 11:13) Red Blood Cells (Rbc) (05/24/16 11:13) Blood Product Administration .UPON TRANSFUSION (05/24/16 11:13) Sodium Chlor 0.9% 250 Ml Inj (Ns 250 Ml (05/24/16 11:15) Diphenhydramine (Benadryl) (05/24/16 11:15) Diphenhydramine (Benadryl) (05/24/16 11:15) Acetaminophen (Tylenol) (05/24/16 11:15) Acetaminophen (Tylenol) (05/24/16 11:15) Pantoprazole Inj (Protonix Inj) (05/24/16 11:30) Pantoprazole Inj (Protonix Inj) (05/24/16 11:30) Admit Order (Ed Use Only) (05/24/16 12:14) Labs Laboratory Tests Test 05/24/16 05/24/16 05/24/16 05/24/16 10:40 10:55 11:05 11:14 White Blood Count 11.9 TH/MM3 Red Blood Count 1.41 MIL/MM3 Hemoglobin 4.3 GM/DL Hematocrit 13.4 % Mean Corpuscular Volume 95.4 FL Mean Corpuscular Hemoglobin 30.6 PG Mean Corpuscular Hemoglobin 32.0 % Concent Red Cell Distribution Width 16.2 % Platelet Count 289 TH/MM3 Mean Platelet Volume 8.0 FL Neutrophils (%) (Auto) 82.3 % Lymphocytes (%) (Auto) 9.6 % Monocytes (%) (Auto) 5.5 % Eosinophils (%) (Auto) 1.6 % Basophils (%) (Auto) 1.0 % Neutrophils # (Auto) 9.8 TH/MM3 Lymphocytes # (Auto) 1.1 TH/MM3 Monocytes # (Auto) 0.7 TH/MM3 Eosinophils # (Auto) 0.2 TH/MM3 Basophils # (Auto) 0.1 TH/MM3 CBC Comment AUTO DIFF Differential Comment AUTO DIFF CONFIRMED Prothrombin Time 11.5 SEC Prothromb Time International 1.0 RATIO Ratio Activated Partial 20.3 SEC Thromboplast Time Sodium Level 140 MEQ/L Potassium Level 3.9 MEQ/L Chloride Level 102 MEQ/L Carbon Dioxide Level 24.1 MEQ/L Anion Gap 14 MEQ/L Blood Urea Nitrogen 46 MG/DL Creatinine 3.69 MG/DL Estimat Glomerular Filtration 13 ML/MIN Rate Random Glucose 208 MG/DL Calcium Level 8.5 MG/DL Total Bilirubin 0.6 MG/DL Aspartate Amino Transf 8 U/L (AST/SGOT) Alanine Aminotransferase 14 U/L (ALT/SGPT) Alkaline Phosphatase 47 U/L Ammonia 28 MCMOL/L Total Creatine Kinase 155 U/L Troponin I 0.74 NG/ML Total Protein 6.1 GM/DL Albumin 3.0 GM/DL Thyroid Stimulating Hormone 1.370 uIU/ML 3rd Gen Acetaminophen Level 8.8 MCG/ML Ethyl Alcohol Level LESS THAN 3 MG/DL Salicylates Level LESS THAN 1.7 MG/DL Urine Opiates Screen NEG Urine Barbiturates Screen NEG Urine Amphetamines Screen NEG Urine Benzodiazepines Screen NEG Urine Cocaine Screen NEG Urine Cannabinoids Screen NEG Blood Type O POSITIVE Antibody Screen NEGATIVE Crossmatch Leukocyte-Reduced Red Blood Cells Blood Bank Comment Test 05/24/16 11:50 Blood Gas Puncture Site RT RADIAL Blood Gas Patient Temperature 98.6 Blood Gas HCO3 22 mmol/L Blood Gas Base Excess -0.7 mmol/L Blood Gas Oxygen Saturation 94 % Arterial Blood pH 7.49 Arterial Blood Partial 30 mmHg Pressure CO2 Arterial Blood Partial 85 mmHG Pressure O2 Arterial Blood Oxygen Content 6.7 Vol % Arterial Blood 2.3 % Carboxyhemoglobin Arterial Blood Methemoglobin 0.7 % Blood Gas Hemoglobin 4.9 G/DL Oxygen Delivery Device RA Blood Gas Inspired Oxygen 21 % [facility] Medical Decision Making Medical Screen Exam Complete: Yes Emergency Medical Condition: Yes Interpretation(s) EKG: Sinus, rate 86, left axis deviation, slightly prolonged QT interval, no acute ischemic abnormality. Differential Diagnosis Intracranial abnormality, metabolic abnormality, UTI, Narrative Course Vital signs reviewed. At 11:18 AM I was called by the lab notifying me at the hemoglobin of 4.3 with hematocrit of 13.4. The patient has heme positive black stool. 2 units of emergency release blood were ordered as well as 2 units of crossmatched blood. 11:40 AM: Case discussed with on-call route salesman and driver Dr. Harding who agrees with transfusion. He would like NG tube placement with lavage to assess for possible active upper GI bleeding. He will see the patient in consultation. CBC shows WBC 11.9, hemoglobin 4.3, hematocrit 11.4, platelets 289. CMP is remarkable for BUN 46, creatinine 3.69, GFR 13, otherwise unremarkable. Coags are WNL. Troponin is 0.74. Elevated troponin is likely secondary to anemia/renal insufficiency. EKG does not show any signs of ischemia. NG placed and clear gastric contents were aspirated. No coffee grounds. No blood. Case discussed with general ledger accountant Dr. Norris who will admit the patient to his service. CT head pending at time of admission. Critical Care Narrative Aggregate critical care time was 40 minutes. Time to perform other separately billable procedures was not included in the critical care time. My time did not include minutes spent treating any other patients simultaneously or on activities that did not directly contribute to the patient's treatment. The services I provided to this patient were to treat and/or prevent clinically significant deterioration that could result in: , permanent disability, worsening clinical condition. I provided critical care services requiring my management, as noted below: Chart data review, documentation time, medication orders and management, vital sign assessments/reviewing monitor data, ordering and reviewing lab tests, ordering and interpreting/reviewing x-rays and diagnostic studies, care of the patient and discussion of the patient with the admitting physicians. Procedures Procedure Narrative NG tube placement: 18 [place] sump was placed in the patient's right nostril. Small amount of lubricating jelly was used. Clear gastric contents were aspirated. No coffee grounds. No blood. HemaPrompt Point of Care Internal Pos. & Neg. Controls: Passed Fecal Specimen Occult Blood: Positive Comment Heme positive black stool. Diagnosis Primary Impression: Severe anemia Additional Impressions: Melena Altered mental status Qualified Code: R41.0 - Delirium Admitting Information Admitting Physician Requests: Admit Johnny Camargo MD May 24, 2016 10:36
[2016-05-24] MEDS ORDERED: SODIUM CHLORIDE 0.9% FLUSH 10 ML FLUSH IVF PRN (10:45)
[2016-05-24 11:04] LABS: AUTOMATED NEUTROPHIL # 9.8 TH/MM3 (1.8-7.7); BASOPHIL # 0.1 TH/MM3 (0-0.2); EOSINOPHIL # 0.2 TH/MM3 (0-0.4); EOSINOPHIL % 1.6 % (0.0-4.0); LYMPH % 9.6 % (9.0-44.0); LYMPHOCYTE # 1.1 TH/MM3 (1.0-4.8); MEAN CELL VOLUME 95.4 FL (80.0-100.0); MEAN CORPUSCULAR HEMOGLOBIN 30.6 PG (27.0-34.0); MONO % 5.5 % (0.0-8.0); NEUT % 82.3 % (16.0-70.0); PLATELET COUNT 289 TH/MM3 (150-450); RED BLOOD COUNT 1.41 MIL/MM3 (4.00-5.30); RED CELL DISTRIBUTION WIDTH 16.2 % (11.6-17.2); WHITE BLOOD COUNT 11.9 TH/MM3 (4.0-11.0)
[2016-05-24] MEDS ORDERED: HYDR50TA15 PO (11:07)
[2016-05-24] MEDS ORDERED: VITA10002 PO (11:07)
[2016-05-24] MEDS ORDERED: METO100T9 PO (11:07)
--- NOTE | 2016-05-24 11:08 | RADRPT ---
EXAM DATE/TIME: 05/24/2016 10:36 [facility] COMPARISON: CHEST SINGLE AP, April 08, 2016, 4:36. INDICATIONS : Syncopal episode. MEDICAL HISTORY : Diabetes mellitus type II. SURGICAL HISTORY : None. ENCOUNTER: Initial ACUITY: 1 day PAIN SCORE: Non-responsive. LOCATION: Bilateral chest FINDINGS: The lungs are clear. The heart is minimally enlarged. The pulmonary vascularity is normal. There is n o evidence for infiltrate or failure. The portion of the bony skeleton visualized is unremarkable. CONCLUSION: Compensated cardiomegaly otherwise negative Art Palacios MD FACR Board Certified Radiologist. This report was verified electronically.
[2016-05-24 11:09] LABS: HEMO FLAGS AUTO DIFF
[2016-05-24] MEDS ORDERED: ASPI1TAB91 PO (11:10)
[2016-05-24 11:12] LABS: HEMATOCRIT 13.4 % (35.0-46.0)
[2016-05-24 11:13] LABS: PROTHROMBIN TIME - PATIENT 11.5 SEC (9.8-11.6)
[2016-05-24 11:14] LABS: APTT (PATIENT) 20.3 SEC (24.3-30.1)
[2016-05-24] MEDS ORDERED: SODIUM CHLOR 0.9% 250 ML INJ 250 ML IV ONE (11:15)
[2016-05-24] MEDS ORDERED: ACETAMINOPHEN 325 MG TAB PO ONE (11:15)
[2016-05-24] MEDS ORDERED: diphenhydrAMINE HCL 25 MG CAP PO PRN (11:15)
[2016-05-24] MEDS ORDERED: diphenhydrAMINE HCL 25 MG CAP PO ONE (11:15)
[2016-05-24] MEDS ORDERED: ACETAMINOPHEN 325 MG TAB PO PRN (11:15)
[2016-05-24 11:23] LABS: ALT (GPT) 14 U/L (10-53); ANION GAP 14 MEQ/L (5-15); AST (GOT) 8 U/L (15-37); BICARBONATE 24.1 MEQ/L (21.0-32.0); BLOOD UREA NITROGEN 46 MG/DL (7-18); CHLORIDE 102 MEQ/L (98-107); GLOMERULAR FILTRATION RATE 13 ML/MIN (>89); POTASSIUM 3.9 MEQ/L (3.5-5.1); SODIUM (NA) 140 MEQ/L (136-145)
[2016-05-24] MEDS ORDERED: PANTOPRAZOLE INJ 80 MG in SODIUM CHLORIDE 0.9% INJ 35 ML IV ONE (11:30)
[2016-05-24 11:33] LABS: ACETAMINOPHEN 8.8 MCG/ML (10.0-30.0); ALKALINE PHOSPHATASE 47 U/L (45-117); CREATINE KINASE 155 U/L (26-192); TOTAL BILIRUBIN ADULT 0.6 MG/DL (0.2-1.0)
[2016-05-24 11:44] LABS: SCAN/DIFF AUTO DIFF CONFIRMED
[2016-05-24 11:59] LABS: BLOOD GAS BASE EXCESS -0.7 mmol/L (-2-2); BLOOD GAS CARBOXYHEMOGLOBIN 2.3 % (0-4); BLOOD GAS HCO3 22 mmol/L (22-26); BLOOD GAS METHEMOGLOBIN 0.7 % (0-2); BLOOD GAS O2 HGB SATURATION 94 % (90-100); BLOOD GAS OXYGEN CONTENT 6.7 Vol % (12.0-20.0); BLOOD GAS PCO2 30 mmHg (38-42); BLOOD GAS PO2 85 mmHG (61-120); BLOOD GAS TOTAL HGB 4.9 G/DL (12.0-16.0); TEMP CORR TO 98.6
[2016-05-24 12:00] LABS: CRITICAL VALUE YES; DRAW SITE RT RADIAL; FIO2 21 %; NUMBER OF ARTERIAL PUNCTURES 1; OXYGEN DEVICE RA; STAT YES; ULNAR PULSE PRESENT
[2016-05-24] MEDS: PANTOPRAZOLE INJ 80 MG in SODIUM CHLORIDE 0.9% INJ 100 ML IV SCH ×2 (12:13→21:30)
[2016-05-24 12:34] LABS: AMPHETAMINE, URINE NEG (NEG); BARBITURATES, URINE NEG (NEG); COCAINE, URINE NEG (NEG)
[2016-05-24] MEDS ORDERED: RESP: ALBUTEROL 2.5 MG/IPRATROPIUM 0.5 MG NEB (PRN) INH (12:45)
[2016-05-24] MEDS ORDERED: MISCELLANEOUS NURSING INFORMATION XX SCH (12:45)
[2016-05-24] MEDS ORDERED: CHLORHEXIDINE GLUCONATE 2 % 1 PACK (2 CLOTHS) TOP PRN (12:45)
--- NOTE | 2016-05-24 13:43 | PD.CONS ---
HPI Service Nephrology Consult Requested By Dr. Cruz Reason for Consult Known ESRD on HD Primary Care Physician Unknown History of Present Illness The patient is a 56 yo [place] female who is known to our services for ESRD on HD. She was at our outpatient dialysis facility for her usual treatment this AM when it was noted that she was becoming mentally alerted. She made it through 2h & 45 mins of her 4h and 30 min treatment time. Her HD was stopped and she was evac'd to this facility for further evaluation. Laboratory findings show a Hgb of 4.3. NG tube was placed that has been clear for any coffee ground appearing output. FOBT positive. She remains mentally altered so history is not clear regarding any vomiting coffee grounds, abdominal pain, or black stools at home. Not certain if she was utilizing any NSAID medications. Receives Epogen 15,000U once weekly as outpatient and received 6.25mg of Ferrelcit QOW in the unit. (Esperanza Morgan) Review of Systems ROS Limitations: Altered Mental Status (Esperanza Morgan) Past Family Social History Allergies: Coded Allergies: No Known Allergies (Unverified , 04/08/16) Past Medical History ESRD on HD DM HTN Anemia of renal disease Medical non-compliance Past Surgical History AVF formation LUE Reported Medications Reported Meds & Active Scripts Active Amlodipine (Amlodipine Besylate) 10 Mg Tab 10 Mg PO DAILY Lortab (Hydrocodone-Acetaminophen) 5-325 Mg Tab 1 Tab PO Q6H PRN Coreg (Carvedilol) 6.25 Mg Tab 6.25 Mg PO Q12HR 30 Days Reported Aspirin Adult Low Strength (Aspirin) 81 Mg Tabdr 81 Mg PO DAILY Vitamin B-12 (Cyanocobalamin) 1,000 Mcg Tab 1,000 Mcg PO DAILY Hydralazine (Hydralazine HCl) 50 Mg Tab 50 Mg PO BID Take with a meal Metoprolol Succinate ER 24 HR (Metoprolol Succinate) 100 Mg Tab 100 Mg PO HS Glyburide 5 Mg Tab 5 Mg PO DAILY Take with meals at the same time each day Renvela (Sevelamer Carbonate) 800 Mg Tab 800 Mg PO TID Take with meals Active Ordered Medications Current Medications Medications (Trade) Dose Ordered Sig/Shaun Route Start Time Stop Time Status Last Admin Sodium Chloride 2 ml 2 ml UNSCH PRN IVF 05/24/16 10:45 Sodium Chloride 250 ml @ 15 mls/hr ONCE ONCE IV 05/24/16 11:15 05/25/16 03:54 05/24/16 11:48 (Protonix Inj/NS Inj) 100 ml @ 10 mls/hr Q10H IV 05/24/16 11:30 05/24/16 12:13 Miscellaneous Information 1 Q361D XX 05/24/16 12:45 (Chlorhexidine 2% Cloth) 3 pack Taper DAILY@04 TOP 05/25/16 04:00 05/21/17 03:59 (Chlorhexidine 2% Cloth) 3 pack UNSCH PRN TOP 05/24/16 12:45 Family History [place] Social History Lives locally with her who also has a complicated medical past Non-smoker No EtOH No illicits. (Esperanza Morgan) Physical Exam Vital Signs Vital Signs Date Time Temp Pulse Resp B/P Pulse Ox O2 Delivery O2 Flow Rate FiO2 05/24/16 12:57 97.8 81 16 162/77 100 Nasal Cannula 2 05/24/16 12:40 97.9 77 16 162/72 98 Nasal Cannula 2 05/24/16 12:13 97.9 80 16 169/79 98 Nasal Cannula 2 05/24/16 11:45 81 16 145/67 95 Nasal Cannula 2 05/24/16 11:40 97.8 81 16 145/67 97 Nasal Cannula 2 05/24/16 11:16 96 Nasal Cannula 2 05/24/16 10:51 80 16 96 Nasal Cannula 2 05/24/16 10:46 97.8 85 16 151/73 93 Physical Exam GENERAL: Seen in ED. Receiving blood product. Has NG tube present. Altered, anxious SKIN: Warm and dry. HEAD: Atraumatic. Normocephalic. EYES: Pupils equal and round. No scleral icterus. No injection or drainage. ENT: No nasal bleeding or discharge. Mucous membranes moist NECK: Trachea midline. No JVD. CARDIOVASCULAR: Regular rate and rhythm. RESPIRATORY: No accessory muscle use. Clear to auscultation. Breath sounds equal bilaterally. GASTROINTESTINAL: Abdomen soft, non-tender, nondistended. Hepatic and splenic margins not palpable. MUSCULOSKELETAL: Extremities without clubbing, cyanosis. Trace-1+ pitting edema BLE NEUROLOGICAL: Awake, but altered. Oriented to place and person. PSYCHIATRIC: Altered Laboratory Laboratory Tests Test 05/24/16 05/24/16 05/24/16 05/24/16 10:40 10:55 11:05 11:14 White Blood Count 11.9 Red Blood Count 1.41 Hemoglobin 4.3 Hematocrit 13.4 Mean Corpuscular Volume 95.4 Mean Corpuscular Hemoglobin 30.6 Mean Corpuscular Hemoglobin 32.0 Concent Red Cell Distribution Width 16.2 Platelet Count 289 Mean Platelet Volume 8.0 Neutrophils (%) (Auto) 82.3 Lymphocytes (%) (Auto) 9.6 Monocytes (%) (Auto) 5.5 Eosinophils (%) (Auto) 1.6 Basophils (%) (Auto) 1.0 Neutrophils # (Auto) 9.8 Lymphocytes # (Auto) 1.1 Monocytes # (Auto) 0.7 Eosinophils # (Auto) 0.2 Basophils # (Auto) 0.1 CBC Comment AUTO DIFF Differential Comment AUTO DIFF CONFIRMED Prothrombin Time 11.5 Prothromb Time International 1.0 Ratio Activated Partial 20.3 Thromboplast Time Sodium Level 140 Potassium Level 3.9 Chloride Level 102 Carbon Dioxide Level 24.1 Anion Gap 14 Blood Urea Nitrogen 46 Creatinine 3.69 Estimat Glomerular Filtration 13 Rate Random Glucose 208 Calcium Level 8.5 Total Bilirubin 0.6 Aspartate Amino Transf 8 (AST/SGOT) Alanine Aminotransferase 14 (ALT/SGPT) Alkaline Phosphatase 47 Ammonia 28 Total Creatine Kinase 155 Troponin I 0.74 Total Protein 6.1 Albumin 3.0 Thyroid Stimulating Hormone 1.370 3rd Gen Acetaminophen Level 8.8 Ethyl Alcohol Level LESS THAN 3 Salicylates Level LESS THAN 1.7 Urine Opiates Screen NEG Urine Barbiturates Screen NEG Urine Amphetamines Screen NEG Urine Benzodiazepines Screen NEG Urine Cocaine Screen NEG Urine Cannabinoids Screen NEG Blood Type O POSITIVE Antibody Screen NEGATIVE Crossmatch Leukocyte-Reduced Red Blood Cells Blood Bank Comment Test 05/24/16 05/24/16 11:50 12:17 Blood Gas Puncture Site RT RADIAL Blood Gas Patient Temperature 98.6 Blood Gas HCO3 22 Blood Gas Base Excess -0.7 Blood Gas Oxygen Saturation 94 Arterial Blood pH 7.49 Arterial Blood Partial 30 Pressure CO2 Arterial Blood Partial 85 Pressure O2 Arterial Blood Oxygen Content 6.7 Arterial Blood 2.3 Carboxyhemoglobin Arterial Blood Methemoglobin 0.7 Blood Gas Hemoglobin 4.9 Oxygen Delivery Device RA Blood Gas Inspired Oxygen 21 Blood Type O POSITIVE (Esperanza Morgan) Result Diagram: 05/24/16 1040 05/24/16 1040 Imaging Last Impressions Chest X-Ray 05/24/16 1032 Signed Impressions: Service Date/Time: Tuesday, May 24, 2016 10:36 - CONCLUSION: Compensated cardiomegaly otherwise negative Art Palacios MD FACR (Esperanza Morgan) Assessment and Plan Problem List: (1) ESRD (end stage renal disease) Plan: Typically TTS schedule. Received 2.75h of treatment today. Will plan for next HD potentially Thursday unless required earlier for fluid overload. Medications should be adjusted for the patient's ESRD. Avoid gadolinium. (2) Severe anemia Plan: Apparent GI bleed with FOBT pos stool. Awaiting GI consultation. CT pending Receiving blood transfusion x2 U. IV Lasix 40mg X1 after transfusion to try to ease fluid overload. (3) Altered mental status Plan: Likely from GIB. As per RN, coming around more than when she first arrived. (4) Diabetes mellitus Plan: Mgmt as per primary (5) Hypertension Plan: Continue on home regimen. Adjust if needed after more stable. (Esperanza Morgan) Assessment and Plan The exam, history, and the medical decision-making described in the above note were completed with the assistance of the PAAlfredo. I reviewed and agree with the findings presented. (Jillian Rubio MD) Problem Qualifiers (1) Altered mental status: Qualified Code: R41.0 - Delirium Esperanza Morgan May 24, 2016 13:43 Jillian Rubio MD May 27, 2016 10:44
[2016-05-24] MEDS ORDERED: DEXTROSE 50% IN WATER 50 ML VIAL(D50) IV PUSH PRN (13:45)
[2016-05-24] MEDS: INSULIN NovoLIN REGULAR SUPPLEMENTAL SCALE SQ SCH ×2 (13:45→19:45)
[2016-05-24] MEDS ORDERED: FUROSEMIDE 40 MG/4 ML VIAL IV PUSH ONE (13:45)
[2016-05-24] MEDS ORDERED: GLUCAGON 1 MG/ML VIAL OTHER PRN (13:45)
--- NOTE | 2016-05-24 14:27 | RADRPT ---
EXAM DATE/TIME: 05/24/2016 13:55 [facility] COMPARISON: No previous studies available for comparison. INDICATIONS : Altered mental status. RADIATION DOSE: 48.24 CTDIvol (mGy) MEDICAL HISTORY : Hypertension. SURGICAL HISTORY : None. ENCOUNTER: Initial ACUITY: 1 day PAIN SCALE: Non-responsive LOCATION: Cranial TECHNIQUE: Multiple contiguous axial images were obtained of the head. Using automated exposure control and adj ustment of the mA and/or kV according to patient size, radiation dose was kept as low as reasonably a chievable to obtain optimal diagnostic quality images. FINDINGS: There is an area of decreased density in the left parieto-occipital region that could be a developing infarct. Right hemisphere is unremarkable. Posterior fossa appears normal. Portion of the orbits and paranasal sinuses visualized are unremarkable. CONCLUSION: Area of decreased density high in the left parieto-occipital region. MRI may be helpful. Art Palacios MD FACR on May 24, 2016 at 14:09 Board Certified Radiologist. This report was verified electronically.
--- NOTE | 2016-05-24 15:05 | MH ---
cc: EVELINA GARG M.D. DATE OF ADMISSION: 05/24/2016 DATE OF : 1960 HISTORY OF PRESENT ILLNESS The patient is a 56-year-old female with a past medical history of hypertension, diabetes mellitus, end stage renal disease on hemodialysis being followed by Dr. Rubio from Nephrology. The patient was undergoing hemodialysis earlier today and she was not acting like her normal self. After approximately [id number]-half hours, the patient became minimally responsive and upon arrival of EMS she was awake and oriented to person only. In route the patient apparently had GCS score of 3 with sonorous respirations. BVM was used to assist the patient's respiration and upon arrival to the ER she became awake and oriented. The patient denies any physical complaints. She denies any GI symptoms, in addition she denies any chest pain or shortness of breath. ABG was performed on room air which showed a pH of 7.49, CO2 30, pAO2 85, bicarb 22 and saturation of 94%. Her laboratory data significant for a mild elevation in troponin 0.74 and severe anemia with a hemoglobin of 4.3 and hematocrit of 13.4. Her urine drug screen is negative for opiates, benzodiazepines and amphetamines. Chest x-ray in the ER showed compensated cardiomegaly otherwise negative. She is scheduled to undergo a CT scan of the brain. When seen she is on 2 liters oxygen with saturation of 98-100% and hypertensive with a blood pressure 166/77. She is currently receiving a second unit of red blood cells. The patient was placed on a Protonix drip and is currently being seen by Nephrology service. Dr. Yung from Cardiology was notified by the ED physician regarding her troponin. In addition NG tube was placed in the ER with clear gastric contents aspirated. No evidence of any blood or coffee-ground. Dr. Harding from GI service was notified regarding the patient's hemoglobin as well. PAST MEDICAL HISTORY Significant for - 1. End-stage renal disease on hemodialysis. 2. Hypertension. 3. Diabetes mellitus. PAST SURGICAL HISTORY Previous left forearm fistula. SOCIAL HISTORY A nonsmoker, nondrinker. FAMILY HISTORY Noncontributory. MEDICATIONS Reported medications - 1. Norvasc. 2. Lortab. 3. Coreg. 4. Aspirin. 5. Hydralazine. 6. Lopressor. 7. Glyburide. 8. Renvela. REVIEW OF SYSTEMS As per HPI. The rest of the review of systems limited as the patient is a poor historian. PHYSICAL EXAMINATION GENERAL: A 56-year-old female lying in bed, in no acute respiratory distress. VITAL SIGNS: Temperature of 97.8, pulse of 78, blood pressure 162/77, saturation 97% on 2 liters oxygen. HEENT: Atraumatic, normocephalic. Pupils equal, round, reactive to light and accommodation. Extraocular muscles intact. Conjunctivae pink. Nonicteric sclerae. Oral mucosa within normal. NECK: Supple. No JVD, adenopathy or thyromegaly. Trachea in the midline. CARDIOVASCULAR: Regular rate and rhythm. Normal S1, S2. No murmurs, rubs or gallops noted. PULMONARY: Bilateral equal entry. No crackles or wheezing. ABDOMEN: Soft, obese, nontender, no distension. Positive bowel sounds. EXTREMITIES: No cyanosis, clubbing or edema. NEUROLOGIC: No focal sensory deficit. LABORATORY DATA WBC 11.9, hemoglobin 4.3, hematocrit 13, platelet count 289. Sodium 140, potassium 3.9, chloride 102, CO2 24, BUN 46, creatinine 3.69, glucose 208, AST 8, ALT 14, total bilirubin 0.6, ammonia level 28, total CK 155, troponin 0.74, TSH 1.37. INR 1.0, PT 11.5, PTT 20.3. Urine drug screen negative for opiates, benzodiazepines and amphetamines. Urinalysis pending. IMAGING Chest x-ray showed compensated cardiomegaly, no obvious infiltrates or effusion. IMPRESSION 1. Altered mental status. 2. Severe anemia. 3. End-stage renal disease. 4. Hypertension. 5. Hyperglycemia with underlying history of diabetes mellitus. 6. Elevated troponin, likely stress mediated secondary to severe anemia. RECOMMENDATIONS 1. Monitor neuro status closely and avoid any sedatives. The patient is for CT scan of the brain without contrast to rule out acute intracranial process. 2. Continue with oxygen and maintain sats above 92%. 3. Bronchodilators in the form of DuoNeb q.6 plus q.2 p.r.n. for shortness of breath. 4. Monitor heart rate and blood pressure closely and maintain MAP greater than 65 mmHg. We will hold antihypertensive medications for now. In addition we will hold aspirin given underlying severe anemia. 5. Monitor cardiac enzymes with troponin and we will obtain a 2D echo to evaluate LV function and to rule out regional wall motion abnormalities. Dr. Yung from Cardiology was notified by ED physician. 6. Monitor renal function and avoid nephrotoxins. The patient status post hemodialysis of approximately 2.5 hours today. She is being seen by Dr. Rubio's nurse practitioner. 7. Keep n.p.o. for now until mental status improves and place on Protonix 40 mg daily. 8. Monitor for signs of infections which include fever and WBC. We will panculture if spikes a fever. 9. Monitor CBC and coags. She is currently receiving a second unit of PRBCs. We will check H&H post transfusion and GI service has been consulted. The case discussed with Dr. Harding. Continue with Protonix drip for now. 10. Place on sliding scale insulin with Accu-Chek q.6 hours for glycemic control. 11. GI prophylaxis on Protonix drip and DVT prophylaxis with SCDs. Chemical anticoagulation prophylaxis contraindicated in the setting of severe anemia. 12. Further recommendations will be based on hospital course. Critical care time 40 minutes excluding procedures. MD EARL Milton/NIKI /1:41 PM /2:38 PM
[2016-05-24] MEDS: hydrALAZINE HCL 50 MG TAB PO SCH ×2 (15:27→21:47)
[2016-05-24] MEDS: CARVEDILOL 6.25 MG TAB PO SCH ×2 (15:28→21:47)
--- NOTE | 2016-05-24 15:48 | MB ---
cc: CONCHITA BECKFORD M.D., ALAA M.D. DATE OF CONSULTATION: 05/24/2016 REASON FOR CONSULTATION: Severe symptomatic anemia with heme-positive stools. HISTORY OF PRESENT ILLNESS: Ms. Patel is a 56-year-old lady who is on chronic hemodialysis. Apparently she presented to hemodialysis this morning. During her dialysis she had a change in her mental status requiring transfer to the hospital. Currently she is alert, oriented and asking to actually go home. She denies any abdominal pain. She states she had no bleeding. Her bowels have been moving regularly. On admission, she was found to have a hemoglobin of 4.3, baseline hemoglobin is around 7. REVIEW OF SYSTEMS: Currently no abdominal pain. No GI bleeding recorded. ALLERGIES: None documented. PAST MEDICAL HISTORY: 1. End-stage renal disease on hemodialysis. 2. Diabetes. 3. Hypertension. 4. Anemia or chronic renal disease. PAST SURGICAL HISTORY: Fistula placement. She does not know if she has had a previous EGD and colonoscopy. MEDICATIONS: On admission. 1. Amlodipine 2. Lortab. 3. Coreg. 4. Aspirin. 5. Vitamin B12. 6. Hydralazine. 7. Metoprolol. 8. Glyburide. 9. Renvela. 10. Protonix. FAMILY HISTORY: Noncontributory. SOCIAL HISTORY: Nonsmoker. No alcohol. PHYSICAL EXAMINATION: Reveals an obese lady in no apparent distress. Vital signs stable. HEAD AND NECK: Anicteric sclera. CHEST: Bilateral air entry. ABDOMEN: Obese, soft, nontender. No hepatosplenomegaly. Bowel sounds are present. CHARACTER ARTIST: Nonfocal. RECTAL: Deferred at this time. LABORATORY DATA: Labs reveal hemoglobin of 4.3, creatinine 3.69. IMPRESSION Anemia, heme-positive stools. RECOMMENDATIONS EGD, colonoscopy discussed with the patient but at this time she is refusing any GI workup. This has been conveyed to the emergency room physician. She is scheduled for a CT scan of the abdomen and pelvis today. Continue to transfuse to get hemoglobin up close to her baseline. Nasogastric tube does not reveal any blood in the stomach. I would recommend that this be removed. The patient can be started on a renal diet. Further workup depending upon whether or not the patient agrees to any further GI workup. Will follow with you. Thank you for this referral. MD ARACELI Prater /1:58 PM /3:33 PM
[2016-05-24] MEDS: RESP: ALBUTEROL 2.5 MG/IPRATROPIUM 0.5 MG NEB (SCH) INH ×2 (16:07→20:30)
[2016-05-24] MEDS: hydrALAZINE HCL 20 MG/ML VIAL IV PUSH PRN (16:18)
[2016-05-24 17:50] LABS: REVIEW FLAG FINAL
[2016-05-24 17:59] LABS: HEMATOCRIT 18.3 % (35.0-46.0)
[2016-05-24] MEDS: CHLORHEXIDINE GLUCONATE 2 % 1 PACK (2 CLOTHS) TOP SCH (21:51)
[2016-05-25] VITALS (14 sets, daily range): BP systolic 119–161; BP diastolic 59–85; PULSE 64–93; RESP 13–23; TEMP 97.8–98.3; O2SAT 96–100
--- NOTE | 2016-05-25 00:10 | EKG ---
Date Performed: 05/24/2016 Time Performed: 10:35:07 PTAGE: 56 years EKG: Sinus rhythm BORDERLINE LEFT AXIS DEVIATION NONSPECIFIC T-WAVE ABNORMALITY PROLONGED QT INTERVAL ABNORMAL ECG INT ERPRETATION BASED ON A DEFAULT AGE OF 40 YEARS NO PREVIOUS TRACING DOCTOR: Jeanette Yung Interpretating Date/Time 05/25/2016 00:08:10
[2016-05-25] MEDS: INSULIN NovoLIN REGULAR SUPPLEMENTAL SCALE SQ SCH ×5 (01:45→20:04)
[2016-05-25] MEDS: RESP: ALBUTEROL 2.5 MG/IPRATROPIUM 0.5 MG NEB (SCH) INH ×3 (03:57→21:08)
[2016-05-25 06:09] LABS: AUTOMATED NEUTROPHIL # 7.9 TH/MM3 (1.8-7.7); BASOPHIL # 0.1 TH/MM3 (0-0.2); EOSINOPHIL # 0.4 TH/MM3 (0-0.4); HEMATOCRIT 21.9 % (35.0-46.0); LYMPH % 13.7 % (9.0-44.0); LYMPHOCYTE # 1.4 TH/MM3 (1.0-4.8); MEAN CELL VOLUME 87.1 FL (80.0-100.0); MEAN CORPUSCULAR HEMOGLOBIN 29.6 PG (27.0-34.0); MONO % 5.7 % (0.0-8.0); NEUT % 75.6 % (16.0-70.0); PLATELET COUNT 203 TH/MM3 (150-450); RED BLOOD COUNT 2.51 MIL/MM3 (4.00-5.30); RED CELL DISTRIBUTION WIDTH 20.3 % (11.6-17.2); WHITE BLOOD COUNT 10.4 TH/MM3 (4.0-11.0)
[2016-05-25 06:16] LABS: HEMO FLAGS AUTO DIFF
[2016-05-25 06:55] LABS: BICARBONATE 25.1 MEQ/L (21.0-32.0); POTASSIUM 4.1 MEQ/L (3.5-5.1)
[2016-05-25 07:22] LABS: PLATELET ESTIMATE SMEAR NORMAL (NORMAL); PLATELET MORPHOLOGY NORMAL (NORMAL); SCAN/DIFF AUTO DIFF CONFIRMED
[2016-05-25] MEDS: PANTOPRAZOLE INJ 80 MG in SODIUM CHLORIDE 0.9% INJ 100 ML IV SCH ×2 (07:30→17:30)
[2016-05-25] MEDS: hydrALAZINE HCL 50 MG TAB PO SCH ×2 (08:13→20:03)
[2016-05-25] MEDS: CARVEDILOL 6.25 MG TAB PO SCH ×2 (08:13→20:02)
[2016-05-25] MEDS: hydrALAZINE HCL 20 MG/ML VIAL IV PUSH PRN (08:21)
[2016-05-25] MEDS ORDERED: DEXTROSE 50% IN WATER 50 ML VIAL(D50) IV PUSH PRN (09:30)
[2016-05-25] MEDS ORDERED: GLUCAGON 1 MG/ML VIAL OTHER PRN (09:30)
--- NOTE | 2016-05-25 09:34 | HHI.CCPN ---
Subjective Remarks/Hospital Course Patient is a 56-year-old female with a past medical history of hypertension, diabetes mellitus, end stage renal disease on hemodialysis being followed by Dr. Rubio from Nephrology. The patient was undergoing hemodialysis earlier today and she was not acting like her normal self. After approximately two-and- a-half hours, the patient became minimally responsive and upon arrival of EMS she was awake and oriented to person only. In route the patient apparently had GCS score of 3 with sonorous respirations. BVM was used to assist the patient's respiration and upon arrival to the ER she became awake and oriented. The patient denies any physical complaints. She denies any GI symptoms, in addition she denies any chest pain or shortness of breath. ABG was performed on room air which showed a pH of 7.49, CO2 30, pAO2 85, bicarb 22 and saturation of 94%. Her laboratory data significant for a mild elevation in troponin 0.74 and severe anemia with a hemoglobin of 4.3 and hematocrit of 13.4. Her urine drug screen is negative for opiates, benzodiazepines and amphetamines. Chest x-ray in the ER showed compensated cardiomegaly otherwise negative. She is scheduled to undergo a CT scan of the brain. When seen she is on 2 liters oxygen with saturation of 98-100% and hypertensive with a blood pressure 166/77. She is currently receiving a second unit of red blood cells. The patient was placed on a Protonix drip and is currently being seen by Nephrology service. Dr. Yung from Cardiology was notified by the ED physician regarding her troponin. In addition NG tube was placed in the ER with clear gastric contents aspirated. No evidence of any blood or coffee-ground. Dr. Harding from GI service was notified regarding the patient's hemoglobin as well. 05/25 Patient is lying in bed in NAD. Afebrile s/p transfusion 2u PRBC Hgb 7.4 this morning. Objective Vital Signs Date Time Temp Pulse Resp B/P Pulse Ox O2 Delivery O2 Flow Rate FiO2 05/25/16 09:17 96 05/25/16 06:00 69 05/25/16 04:00 98.0 13 152/74 05/24/16 20:30 Nasal Cannula 21 05/24/16 13:55 2 Intake and Output 05/24/16 05/24/16 05/25/16 08:00 16:00 00:00 Intake Total 300 ml 781 ml Balance 300 ml 781 ml Result Diagram: 05/25/16 0551 05/25/16 0551 Other Results Laboratory Tests Test 05/24/16 05/24/16 05/24/16 05/24/16 10:40 10:55 11:05 11:14 White Blood Count 11.9 TH/MM3 Red Blood Count 1.41 MIL/MM3 Hemoglobin 4.3 GM/DL Hematocrit 13.4 % Mean Corpuscular Volume 95.4 FL Mean Corpuscular Hemoglobin 30.6 PG Mean Corpuscular Hemoglobin 32.0 % Concent Red Cell Distribution Width 16.2 % Platelet Count 289 TH/MM3 Mean Platelet Volume 8.0 FL Neutrophils (%) (Auto) 82.3 % Lymphocytes (%) (Auto) 9.6 % Monocytes (%) (Auto) 5.5 % Eosinophils (%) (Auto) 1.6 % Basophils (%) (Auto) 1.0 % Neutrophils # (Auto) 9.8 TH/MM3 Lymphocytes # (Auto) 1.1 TH/MM3 Monocytes # (Auto) 0.7 TH/MM3 Eosinophils # (Auto) 0.2 TH/MM3 Basophils # (Auto) 0.1 TH/MM3 CBC Comment AUTO DIFF Differential Comment AUTO DIFF CONFIRMED Prothrombin Time 11.5 SEC Prothromb Time International 1.0 RATIO Ratio Activated Partial 20.3 SEC Thromboplast Time Sodium Level 140 MEQ/L Potassium Level 3.9 MEQ/L Chloride Level 102 MEQ/L Carbon Dioxide Level 24.1 MEQ/L Anion Gap 14 MEQ/L Blood Urea Nitrogen 46 MG/DL Creatinine 3.69 MG/DL Estimat Glomerular Filtration 13 ML/MIN Rate Random Glucose 208 MG/DL Calcium Level 8.5 MG/DL Total Bilirubin 0.6 MG/DL Aspartate Amino Transf 8 U/L (AST/SGOT) Alanine Aminotransferase 14 U/L (ALT/SGPT) Alkaline Phosphatase 47 U/L Ammonia 28 MCMOL/L Total Creatine Kinase 155 U/L Troponin I 0.74 NG/ML Total Protein 6.1 GM/DL Albumin 3.0 GM/DL Thyroid Stimulating Hormone 1.370 uIU/ML 3rd Gen Acetaminophen Level 8.8 MCG/ML Ethyl Alcohol Level LESS THAN 3 MG/DL Salicylates Level LESS THAN 1.7 MG/DL Urine Opiates Screen NEG Urine Barbiturates Screen NEG Urine Amphetamines Screen NEG Urine Benzodiazepines Screen NEG Urine Cocaine Screen NEG Urine Cannabinoids Screen NEG Crossmatch Leukocyte-Reduced Red Blood Cells Blood Bank Comment Blood Type O POSITIVE Antibody Screen NEGATIVE Test 05/24/16 05/24/16 05/24/16 05/24/16 11:50 12:17 14:14 17:05 Blood Gas Puncture Site RT RADIAL Blood Gas Patient Temperature 98.6 Blood Gas HCO3 22 mmol/L Blood Gas Base Excess -0.7 mmol/L Blood Gas Oxygen Saturation 94 % Arterial Blood pH 7.49 Arterial Blood Partial 30 mmHg Pressure CO2 Arterial Blood Partial 85 mmHG Pressure O2 Arterial Blood Oxygen Content 6.7 Vol % Arterial Blood 2.3 % Carboxyhemoglobin Arterial Blood Methemoglobin 0.7 % Blood Gas Hemoglobin 4.9 G/DL Oxygen Delivery Device RA Blood Gas Inspired Oxygen 21 % Blood Type O POSITIVE Nasal Screen MRSA (PCR) NEGATIVE Hemoglobin 6.1 GM/DL Hematocrit 18.3 % Troponin I 0.93 NG/ML Test 05/24/16 05/25/16 23:02 05:51 Troponin I 1.13 NG/ML White Blood Count 10.4 TH/MM3 Red Blood Count 2.51 MIL/MM3 Hemoglobin 7.4 GM/DL Hematocrit 21.9 % Mean Corpuscular Volume 87.1 FL Mean Corpuscular Hemoglobin 29.6 PG Mean Corpuscular Hemoglobin 34.0 % Concent Red Cell Distribution Width 20.3 % Platelet Count 203 TH/MM3 Mean Platelet Volume 8.1 FL Neutrophils (%) (Auto) 75.6 % Lymphocytes (%) (Auto) 13.7 % Monocytes (%) (Auto) 5.7 % Eosinophils (%) (Auto) 4.0 % Basophils (%) (Auto) 1.0 % Neutrophils # (Auto) 7.9 TH/MM3 Lymphocytes # (Auto) 1.4 TH/MM3 Monocytes # (Auto) 0.6 TH/MM3 Eosinophils # (Auto) 0.4 TH/MM3 Basophils # (Auto) 0.1 TH/MM3 CBC Comment AUTO DIFF Differential Comment AUTO DIFF CONFIRMED Platelet Estimate NORMAL Platelet Morphology Comment NORMAL Sodium Level 135 MEQ/L Potassium Level 4.1 MEQ/L Chloride Level 98 MEQ/L Carbon Dioxide Level 25.1 MEQ/L Anion Gap 12 MEQ/L Blood Urea Nitrogen 66 MG/DL Creatinine 5.95 MG/DL Estimat Glomerular Filtration 7 ML/MIN Rate Random Glucose 225 MG/DL Calcium Level 8.6 MG/DL Imaging Last Impressions Head CT 05/24/16 1032 Signed Impressions: Service Date/Time: Tuesday, May 24, 2016 13:55 - CONCLUSION: Area of decreased density high in the left parieto-occipital region. MRI may be helpful. Art Palacios MD FACR Chest X-Ray 05/24/16 1032 Signed Impressions: Service Date/Time: Tuesday, May 24, 2016 10:36 - CONCLUSION: Compensated cardiomegaly otherwise negative Art Palacios MD FACR Objective Remarks GENERAL: Patient is lying in bed in NAD SKIN: Warm and dry. HEAD: Normocephalic. EYES: No scleral icterus. No injection or drainage. NECK: Supple, trachea midline. No JVD or lymphadenopathy. CARDIOVASCULAR: Regular rate and rhythm without murmurs, gallops, or rubs. RESPIRATORY: Breath sounds equal bilaterally. No accessory muscle use. GASTROINTESTINAL: Abdomen soft, non-tender, nondistended. MUSCULOSKELETAL: No cyanosis, or edema. Neuro: Awake and alert A/P Assessment and Plan 1. Resp Insuff 2. Altered mental status. 3. Severe anemia. 4. End-stage renal disease. 5. Hypertension. 6. Hyperglycemia with underlying history of diabetes mellitus. 7. Elevated troponin, likely stress mediated Plan: Neuro: Monitor neuro status and avoid any sedatives. CT brain: Area of decreased density high in the left parieto- occipital region. Will check MRI brain - Patient is refusing MRI brain Pulm: Continue with oxygen and maintain sats above 92%. Bronchodilators CV: Monitor HR and BP and maintain MAP greater than Continue with Coreg 6.25 mg BID, Hydralazine 50mg BID Monitor troponin, check 2D echo to evaluate LV function Cards is consulted. Dr. Yung. Not a candidate for ASA or AC 2nd severe anemia/ GI bleed : Monitor renal function and avoid nephrotoxins. Renal- Dr. Rubio GI: on Protonix drip. GI is following, patient is refusing EGD/colonoscopy On PO renal diet ID: Monitor for signs of infections(fever and WBC) panculture if spikes a fever. Heme: Monitor CBC s/p transfusion 2u PRBC, Hgb 7.4 this morning from 4.3 will transfuse 1u PRBC. Endo: Increase SSI medium scale with Accu-Chek q.6 hours for glycemic control. GI prophylaxis on Protonix drip and DVT prophylaxis with SCDs. Chemical anticoagulation prophylaxis contraindicated in the setting of severe anemia on arrival Will sign off and transfer care to arrival. Level 3 Doug Norris MD May 25, 2016 09:33
--- NOTE | 2016-05-25 14:56 | HHI.GIFU ---
Subjective Remarks 56 yo female lying in bed in no acute distress. Nurse reports she has been refusing all diagnostic studies. Continues to refuse EGD/Colonoscopy. (Lourdes Atkinson) Objective Vitals I&O Vital Signs Date Time Temp Pulse Resp B/P Pulse Ox O2 Delivery O2 Flow Rate FiO2 05/25/16 12:00 93 05/25/16 12:00 98.0 65 20 155/85 100 05/25/16 12:00 98.0 66 16 152/85 96 05/25/16 10:00 93 05/25/16 09:17 96 05/25/16 08:00 93 05/25/16 08:00 97.8 69 16 119/61 96 05/25/16 06:00 69 05/25/16 04:00 76 05/25/16 04:00 98.0 75 13 152/74 96 05/25/16 02:00 80 05/25/16 00:00 78 05/25/16 00:00 98.3 78 23 120/59 97 05/24/16 22:00 79 05/24/16 20:30 97 Nasal Cannula 21 05/24/16 20:00 98.2 93 20 118/57 97 05/24/16 20:00 93 05/24/16 18:00 80 05/24/16 17:00 146/67 05/24/16 16:00 98.1 79 19 196/100 100 05/24/16 16:00 79 I/O 05/24/16 05/24/16 05/24/16 05/25/16 05/25/16 05/25/16 07:00 15:00 23:00 07:00 15:00 23:00 Intake Total 300 ml 781 ml 582 ml Balance 300 ml 781 ml 582 ml Intake Oral 705 ml IV Total 76 ml 82 ml Packed Cells 300 ml 500 ml # Voids 0 # Bowel Movements 5 6 Laboratory Laboratory Tests Test 05/24/16 05/24/16 05/25/16 05/25/16 17:05 23:02 05:51 09:30 Hemoglobin 6.1 7.4 Hematocrit 18.3 21.9 Troponin I 0.93 1.13 1.41 White Blood Count 10.4 Red Blood Count 2.51 Mean Corpuscular Volume 87.1 Mean Corpuscular Hemoglobin 29.6 Mean Corpuscular Hemoglobin 34.0 Concent Red Cell Distribution Width 20.3 Platelet Count 203 Mean Platelet Volume 8.1 Neutrophils (%) (Auto) 75.6 Lymphocytes (%) (Auto) 13.7 Monocytes (%) (Auto) 5.7 Eosinophils (%) (Auto) 4.0 Basophils (%) (Auto) 1.0 Neutrophils # (Auto) 7.9 Lymphocytes # (Auto) 1.4 Monocytes # (Auto) 0.6 Eosinophils # (Auto) 0.4 Basophils # (Auto) 0.1 CBC Comment AUTO DIFF Differential Comment AUTO DIFF CONFIRMED Platelet Estimate NORMAL Platelet Morphology Comment NORMAL Sodium Level 135 Potassium Level 4.1 Chloride Level 98 Carbon Dioxide Level 25.1 Anion Gap 12 Blood Urea Nitrogen 66 Creatinine 5.95 Estimat Glomerular Filtration 7 Rate Random Glucose 225 Calcium Level 8.6 Blood Type O POSITIVE Crossmatch Leukocyte-Reduced Red Blood Cells Blood Bank Comment Imaging Last Impressions Head CT 05/24/16 1032 Signed Impressions: Service Date/Time: Tuesday, May 24, 2016 13:55 - CONCLUSION: Area of decreased density high in the left parieto-occipital region. MRI may be helpful. Art Palacios MD FACR Chest X-Ray 05/24/16 1032 Signed Impressions: Service Date/Time: Tuesday, May 24, 2016 10:36 - CONCLUSION: Compensated cardiomegaly otherwise negative Art Palacios MD FACR Physical Exam HEENT: PERRLA; normocephalic; atraumatic; no jaundice. NECK: Neck is supple, no JVD, no lymphadenopathy. CHEST: CTA CARDIAC: RRR with no murmur gallop or rubs. ABDOMEN: Soft obese, nontender; no hepatosplenomegaly; bowel sounds are present x 4 quadrants EXTREMITIES: No clubbing, cyanosis, or edema. SKIN: Normal; no rash; no jaundice. PAINT GRINDER: No focal deficits; A&O x3. (Lourdes Atkinson) Assessment and Plan Plan ASSESSMENT: -Severe anemia, heme positive stools. H/H improved to 7.4/21.9 from 4.3/13.4. S/ P 2u PRBC transfusion. Patient continues to refuse EGD/Colonoscopy -Altered mental status, per primary Head CT 05/24/16 Area of decreased density high in the left parieto-occipital region. Patient refusing MRI -End Stage Renal Disease on hemolysis, renal diet -Elevated Troponin, Cardiology consulted. PLAN: -Colonoscopy/EGD discussed with patient, but she is continuing to refuse procedures -Renal diet -Please let GI know if patient decides to have EGD/Colonoscopy -Further recommendations to follow based on whether patient has GI procedures. Patient was seen and examined by Dr. Harding and myself and this note is written on his behalf. (Lourdes Atkinson) Physician Comments Seen and examined with LUCIANO, no active bleeding , no abdominal pain. Continues to refuse gi rizo. Will sign off, reconsult as needed. Thank you (Dustin Harding MD) Lourdes Atkinson May 25, 2016 14:56 Dustin Harding MD May 25, 2016 15:34
[2016-05-25 16:22] LABS: HEMATOCRIT 22.5 % (35.0-46.0); REVIEW FLAG FINAL
[2016-05-26] VITALS (14 sets, daily range): BP systolic 136–190; BP diastolic 63–94; PULSE 62–71; RESP 12–21; TEMP 98–98.7; O2SAT 97–98
[2016-05-26 00:09] LABS: HEMATOCRIT 23.8 % (35.0-46.0); REVIEW FLAG FINAL
[2016-05-26] MEDS: hydrALAZINE HCL 20 MG/ML VIAL IV PUSH PRN (00:24)
[2016-05-26] MEDS ORDERED: HYDROmorphone HCL PF 1 MG/ML VIAL IV PUSH ONE (00:45)
[2016-05-26] MEDS: INSULIN NovoLIN REGULAR SUPPLEMENTAL SCALE SQ SCH ×4 (03:30→21:02)
[2016-05-26] MEDS: PANTOPRAZOLE INJ 80 MG in SODIUM CHLORIDE 0.9% INJ 100 ML IV SCH ×3 (03:30→21:02)
[2016-05-26] MEDS: RESP: ALBUTEROL 2.5 MG/IPRATROPIUM 0.5 MG NEB (SCH) INH ×4 (03:39→20:29)
[2016-05-26] MEDS: CHLORHEXIDINE GLUCONATE 2 % 1 PACK (2 CLOTHS) TOP SCH (04:00)
[2016-05-26 06:14] LABS: AUTOMATED NEUTROPHIL # 7.5 TH/MM3 (1.8-7.7); BASOPHIL # 0.1 TH/MM3 (0-0.2); BASOPHIL % 0.9 % (0.0-2.0); EOSINOPHIL # 0.6 TH/MM3 (0-0.4); EOSINOPHIL % 6.3 % (0.0-4.0); HEMATOCRIT 25.4 % (35.0-46.0); LYMPH % 13.1 % (9.0-44.0); LYMPHOCYTE # 1.3 TH/MM3 (1.0-4.8); MEAN CELL VOLUME 89.1 FL (80.0-100.0); MEAN CORPUSCULAR HGB CONC 33.7 % (32.0-36.0); MONO % 4.9 % (0.0-8.0); NEUT % 74.8 % (16.0-70.0); PLATELET COUNT 188 TH/MM3 (150-450); RED BLOOD COUNT 2.86 MIL/MM3 (4.00-5.30); RED CELL DISTRIBUTION WIDTH 19.2 % (11.6-17.2)
[2016-05-26 06:38] LABS: HEMO FLAGS AUTO DIFF
[2016-05-26 06:58] LABS: BICARBONATE 22.9 MEQ/L (21.0-32.0); POTASSIUM 4.4 MEQ/L (3.5-5.1)
[2016-05-26 08:36] LABS: BANDS 2 % (0-6); BASOPHILS 1 % (0-2); EOSINOPHILS 10 % (0-4); METAMYELOCYTES 1 % (0-1); MYELOCYTES 1 % (0-0); NEUTROPHIL # MANUAL DIFF 7.2 TH/MM3 (1.8-7.7); PLATELET ESTIMATE SMEAR NORMAL (NORMAL); PLATELET MORPHOLOGY NORMAL (NORMAL); POLYS (SEG NEUTROPHILS) 68 % (16-70); SCAN/DIFF FINAL DIFF MANUAL; WBC DIFF SAMPLE 100
[2016-05-26] MEDS: hydrALAZINE HCL 50 MG TAB PO SCH ×2 (09:00→21:02)
[2016-05-26] MEDS: CARVEDILOL 6.25 MG TAB PO SCH ×2 (09:00→21:01)
[2016-05-26] MEDS ORDERED: LORazepam 2 MG/ML VIAL IV PUSH ONE ×2 (09:00→14:00)
--- NOTE | 2016-05-26 09:22 | MB ---
cc: BERNARD OLIVERA MD, HANSCY M.D. DATE OF CONSULTATION: 05/25/2016 REASON FOR CONSULTATION Increased troponin. HISTORY OF PRESENT ILLNESS Mrs. Patel is a 56-year-old female with a history of diabetes mellitus, high blood pressure, end-stage renal disease on hemodialysis, possible GI bleeding, admitted due to shortness of breath. Hemoglobin was 4.3 on hospitalization. She is on Epogen 15,000 units weekly. Coffee-ground was found in NG tube. She received blood transfusion. The troponin increased and I was consulted for evaluation and management. The chart was reviewed. The patient was evaluated. ALLERGIES None. SOCIAL HISTORY The patient denies smoking and drinking. FAMILY HISTORY Noncontributory to her current medical condition. MEDICATIONS At home she is on: 1. Amlodipine. 2. Lortab. 3. Coreg. During hospitalization she was put on: 1. Hydralazine p.r.n. 2. Protonix drip was also initiated. REVIEW OF SYSTEMS She refers feeling better. She wants to go home. She refers no chest pain, some shortness of breath, no fever. PHYSICAL EXAMINATION GENERAL: Alert, fully oriented. VITAL SIGNS: Blood pressure 161/80, pulse 64, respiratory rate 18. LUNGS: Ventilated. CARDIOVASCULAR: S1, S2, regular. No gallop. ABDOMEN: Soft. No mass. No bruit. EXTREMITIES: There is an AV fistula in the left arm. No edema. ELECTROCARDIOGRAM Sinus rhythm, poor R-wave progression, no active ST and T-wave changes. LABORATORY Hemoglobin currently is 7.6 from 4.3 on hospitalization, white blood cell count 10.4. Potassium 4.1. Creatinine 5.95. Troponin 1.41. INR 1.0. ASSESSMENT AND RECOMMENDATION Mrs. Patel apparently has active GI bleeding. There was coffee-ground in the NG tube. She had melena also. She received two units of packed red blood cells. She refused GI work-up and endoscopy. She refers she has to go home because the who is an amputee is by myself at home. Troponin increased to 1.41, that may be due to renal insufficiency or to the GI issue. At this point the patient is not a candidate for ischemic work-up. Because of the GI bleeding she is not a candidate for anticoagulation. For now continue on medical management. Blood pressure needs to be controlled. I do not know if because she is very anxious the blood pressure is high. If the blood pressure continues to be high, will need to increase her Coreg and reevaluate medication. Her condition is of care. Medical management for now. I will follow her during hospitalization. The nurse tried to have the family talk her into GI evaluation. Jeanette Yung MD HS/BT /5:28 PM /9:06 AM
--- NOTE | 2016-05-26 10:24 | RADRPT ---
EXAM DATE/TIME: 05/26/2016 09:26 [facility] COMPARISON: CT BRAIN W/O CONTRAST, May 24, 2016, 13:55. INDICATIONS : Altered mental status. MEDICAL HISTORY : Diabetes mellitus type 2. Hypertension. Renal failure, chronic. SURGICAL HISTORY : AV Fistula ENCOUNTER: Subsequent ACUITY: 3 day PAIN SCORE: 0/10 LOCATION: head TECHNIQUE: Multiplanar, multisequence MRI of the brain was performed without contrast. FINDINGS: There is a small area of edematous change in the high convexity left parietal-occipital cortex. There is no significant focal restriction of diffusion to suggest recent ischemic insult. Elsewhere, there is patchy mild T2 prolongation in the periventricular white matter likely microvascular ischemic in etiology. Gradient sequence reveals scattered punctate areas of susceptibility consistent with microh emorrhages. There is no evidence of macroscopic hemorrhage. A small remote lacunar infarct is present in the right thalamus. There is no evidence of brain mass. The ventricles are symmetric and normal. Extracranial structures are benign and intact. CONCLUSION: Focus of diminished density in the high convexity left parietal-occipital region is most probably a l ate subacute or older watershed infarction. Other edematous process is not entirely excluded. Remington Restrepo MD on May 26, 2016 at 10:13 Board Certified Radiologist. This report was verified electronically.
[2016-05-26] MEDS ORDERED: SODIUM CHLOR 0.9% 1000 ML INJ 1,000 ML IV PRN ×3 (11:48)
[2016-05-26] MEDS ORDERED: ALBUMIN HUMAN 25% 25 GM/100 ML BAGP IV PRN (12:00)
[2016-05-26] MEDS ORDERED: diphenhydrAMINE HCL 25 MG CAP PO PRN (12:00)
[2016-05-26] MEDS ORDERED: GENTAMICIN SULFATE (DIALYSIS USE ONLY) 20 MG/2 ML VIAL IV PRN (12:00)
[2016-05-26] MEDS ORDERED: ONDANSETRON HCL 4 MG/2 ML VIAL IV PRN (12:00)
[2016-05-26] MEDS ORDERED: ACETAMINOPHEN 325 MG TAB PO PRN (12:00)
[2016-05-26] MEDS ORDERED: NITROGLYCERIN 0.4 MG SL 25 TABS/BTL SL PRN (12:00)
[2016-05-26] MEDS ORDERED: HEPARIN SODIUM - IV 10,000 UNITS/10 ML VIAL PRN (12:00)
[2016-05-26] MEDS ORDERED: MANNITOL 12.5 GM/50 ML VIAL IV PRN (12:00)
[2016-05-26] MEDS ORDERED: SODIUM CHLORIDE 0.9% FLUSH 10 ML FLUSH IV FLUSH PRN (12:00)
--- NOTE | 2016-05-26 12:26 | HHI.NPPN ---
Subjective History of Present Illness The patient is a 56 yo [place] female who is known to our services for ESRD on HD. She was at our outpatient dialysis facility for her usual treatment this AM when it was noted that she was becoming mentally alerted. She made it through 2h & 45 mins of her 4h and 30 min treatment time. Her HD was stopped and she was evac'd to this facility for further evaluation. Laboratory findings show a Hgb of 4.3. NG tube was placed that has been clear for any coffee ground appearing output. FOBT positive. She remains mentally altered so history is not clear regarding any vomiting coffee grounds, abdominal pain, or black stools at home. Not certain if she was utilizing any NSAID medications. Receives Epogen 15,000U once weekly as outpatient and received 6.25mg of Ferrelcit QOW in the unit. Interval History Pt more mentally alert today Has been refusing w/u regarding GI bleed, but seems to be on board at this time. Had MRI brain this AM, again after refusing x24h. (Esperanza Morgan) Review of Systems General Constitutional: Fatigue (Esperanza Morgan) Respiratory Lungs: SOB (Esperanza Morgan) Objective Data Data 05/25/16 05/26/16 19:00 07:00 Intake Total 350 ml 692 ml Balance 350 ml 692 ml Intake Oral 350 ml 10 ml IV Total 182 ml Packed Cells 500 ml Vital Signs Date Time Temp Pulse Resp B/P Pulse Ox O2 Delivery O2 Flow Rate FiO2 05/26/16 12:00 65 05/26/16 10:00 62 05/26/16 08:00 62 05/26/16 08:00 98.2 63 14 160/79 97 05/26/16 06:00 62 05/26/16 04:00 62 05/26/16 04:00 98.3 62 12 167/79 98 05/26/16 02:00 65 05/26/16 01:00 136/63 05/26/16 00:00 98.0 66 18 190/94 98 05/26/16 00:00 66 05/25/16 22:00 73 05/25/16 20:42 98 21 05/25/16 20:00 97.9 66 23 161/84 98 05/25/16 20:00 66 05/25/16 18:00 93 05/25/16 16:00 93 05/25/16 16:00 98.3 64 16 161/80 96 05/25/16 14:00 93 (Esperanza Morgan) -: 05/26/16 0538 05/26/16 0530 Medication Review Current Medications Medications (Trade) Dose Ordered Sig/Shaun Route Start Time Stop Time Status Last Admin Sodium Chloride 2 ml 2 ml UNSCH PRN IVF 05/24/16 10:45 (Protonix Inj/NS Inj) 100 ml @ 10 mls/hr Q10H IV 05/24/16 11:30 05/26/16 03:30 Miscellaneous Information 1 Q361D XX 05/24/16 12:45 (Chlorhexidine 2% Cloth) 3 pack Taper DAILY@04 TOP 05/25/16 04:00 05/21/17 03:59 05/26/16 04:00 (Chlorhexidine 2% Cloth) 3 pack UNSCH PRN TOP 05/24/16 12:45 (Coreg) 6.25 mg Q12HR PO 05/24/16 14:45 05/26/16 09:00 (Apresoline) 50 mg BID PO 05/24/16 14:45 05/26/16 09:00 (Apresoline Inj) 10 mg Q6H PRN IV PUSH 05/24/16 15:00 05/26/16 00:24 (D50w (Vial) Inj) 25 ml UNSCH PRN IV PUSH 05/25/16 09:30 (Glucagon Inj) 1 mg UNSCH PRN OTHER 05/25/16 09:30 Insulin Human Regular 1 1 Q6H SQ 05/25/16 09:30 05/26/16 09:30 Sodium Chloride 1,000 ml @ 0 mls/hr Q0M PRN IV 05/26/16 11:48 Sodium Chloride 1,000 ml @ 200 mls/hr Q5H PRN IV 05/26/16 11:48 (NS 1000 ml Inj) 1,000 ml @ 0 mls/hr Q0M PRN IV 05/26/16 11:48 (Mannitol Inj) 12.5 gm UNSCH PRN IV 05/26/16 12:00 (Albumin 25% Inj) 25 gm UNSCH PRN IV 05/26/16 12:00 (NS Flush) 5 ml UNSCH PRN IV FLUSH 05/26/16 12:00 (Heparin Inj) UNSCH PRN .XX 05/26/16 12:00 (Gentamicin (Dialysis) Inj) 20 mg UNSCH PRN IV 05/26/16 12:00 (Zofran Inj) 4 mg UNSCH PRN IV 05/26/16 12:00 (Tylenol) 650 mg UNSCH PRN PO 05/26/16 12:00 (Benadryl) 25 mg UNSCH PRN PO 05/26/16 12:00 (Nitrostat Sl) 0.4 mg UNSCH PRN SL 05/26/16 12:00 (Catapres) 0.1 mg UNSCH PRN PO 05/26/16 12:00 (Gelfoam 12 Mm/7 Mm Top) 1 foam UNSCH PRN TOP 05/26/16 12:00 (Esperanza Morgan) Physical Exam General Appearance: No Acute Distress (Esperanza Morgan) Neck Neck Exam: Neck Supple, Trachea Midline (Esperanza Morgan) Pulmonary Resp Exam: Breath Sounds Equal, No Distress, Diminished Breath Sounds (Esperanza Morgan) Cardiology CV Exam: Regular, Normal Sinus Rhythm (Esperanza Morgan) Gastrointestinal/Abdomen GI Exam: Soft, Non-Tender (Esperanza Morgan) Integumentary Skin Exam: Clear, Warm (Esperanza Morgan) Extremeties Extremities Exam: Moderate Edema Extremeties Remarks 1+ BLE and abdomen (Esperanza Morgan) Neurologic Neuro Exam: Alert, Awake (Esperanza Morgan) Assessment/Plan Problem List: (1) ESRD (end stage renal disease) Plan: HD today. Will keep on MWF while hospitalized, then she is to resume TTS once outpatient. Medications should be adjusted for the patient's ESRD. Avoid gadolinium. (2) Severe anemia Plan: GI has planned EGD/colonoscopy. Pt has been refusing up until now, but remains to be seen if she will complete. Advised necessity of this given her severe anemia. Admitted today that she has been using Aleve at home since her toe fx. (3) Altered mental status Plan: Likely from GIB. As per RN, coming around more than when she first arrived. (4) Diabetes mellitus Plan: Mgmt as per primary (5) Hypertension Plan: Continue on home regimen. Adjust if needed after more stable. (6) Non-compliance Plan: Continues to be a very difficult case. Chronic non-compliance as outpatient regarding her dietary restrictions as well as medication adherence. She was initially refusing w/u, but she has slowly been coming around and completing after much coercing. Her long-term prognosis is poor given her non-compliance. (Esperanza Morgan) Plan The exam, history, and the medical decision-making described in the above note were completed with the assistance of the PA-C. I reviewed and agree with the findings presented. I attest that I had a [id number] encounter with the patient on the same day, and personally performed and documented my assessment and findings in the medical record. (Jillian Rubio MD) Problem Qualifiers (1) Altered mental status: Qualified Code: R41.0 - Delirium Esperanza Morgan May 26, 2016 12:26 Jillian Rubio MD May 27, 2016 10:44
--- NOTE | 2016-05-26 12:35 | HHI.GIFU ---
Subjective Remarks Reconsulted for endoscopic evaluation of anemia-she had refused for us, but is now agreeable according to nurse. When I went to go see patient, she was still adamantly refusing evaluation with EGD/Colonoscopy. Discussed the rationale for this and she said she would think this over and consider doing it in a day or so. She is not having any active bleeding. (Renu Bennett) Objective Vitals I&O Vital Signs Date Time Temp Pulse Resp B/P Pulse Ox O2 Delivery O2 Flow Rate FiO2 05/26/16 12:00 65 05/26/16 10:00 62 05/26/16 08:00 62 05/26/16 08:00 98.2 63 14 160/79 97 05/26/16 06:00 62 05/26/16 04:00 62 05/26/16 04:00 98.3 62 12 167/79 98 05/26/16 02:00 65 05/26/16 01:00 136/63 05/26/16 00:00 98.0 66 18 190/94 98 05/26/16 00:00 66 05/25/16 22:00 73 05/25/16 20:42 98 21 05/25/16 20:00 97.9 66 23 161/84 98 05/25/16 20:00 66 05/25/16 18:00 93 05/25/16 16:00 93 05/25/16 16:00 98.3 64 16 161/80 96 05/25/16 14:00 93 I/O 05/25/16 05/25/16 05/25/16 05/26/16 05/26/16 05/26/16 07:00 15:00 23:00 07:00 15:00 23:00 Intake Total 582 ml 350 ml 617 ml 75 ml Balance 582 ml 350 ml 617 ml 75 ml Intake Oral 350 ml 10 ml IV Total 82 ml 117 ml 65 ml Packed Cells 500 ml 500 ml # Bowel Movements 6 Laboratory Laboratory Tests Test 05/25/16 05/25/16 05/26/16 05/26/16 15:37 17:44 00:01 05:30 Hemoglobin 7.6 8.2 Hematocrit 22.5 23.8 Blood Type O POSITIVE Crossmatch Leukocyte-Reduced Red Blood Cells Blood Bank Comment Sodium Level 135 Potassium Level 4.4 Chloride Level 98 Carbon Dioxide Level 22.9 Anion Gap 14 Blood Urea Nitrogen 80 Creatinine 8.11 Estimat Glomerular Filtration 5 Rate Random Glucose 205 Calcium Level 8.9 Test 05/26/16 05:38 White Blood Count 10.0 Red Blood Count 2.86 Hemoglobin 8.6 Hematocrit 25.4 Mean Corpuscular Volume 89.1 Mean Corpuscular Hemoglobin 30.0 Mean Corpuscular Hemoglobin 33.7 Concent Red Cell Distribution Width 19.2 Platelet Count 188 Mean Platelet Volume 8.3 Neutrophils (%) (Auto) 74.8 Lymphocytes (%) (Auto) 13.1 Monocytes (%) (Auto) 4.9 Eosinophils (%) (Auto) 6.3 Basophils (%) (Auto) 0.9 Neutrophils # (Auto) 7.5 Lymphocytes # (Auto) 1.3 Monocytes # (Auto) 0.5 Eosinophils # (Auto) 0.6 Basophils # (Auto) 0.1 CBC Comment AUTO DIFF Differential Total Cells 100 Counted Neutrophils % (Manual) 68 Band Neutrophils % 2 Lymphocytes % 13 Monocytes % 4 Eosinophils % 10 Basophils % 1 Neutrophils # (Manual) 7.2 Metamyelocytes 1 Myelocytes 1 Differential Comment FINAL DIFF MANUAL Platelet Estimate NORMAL Platelet Morphology Comment NORMAL Imaging Last Impressions Brain MRI 05/26/16 0000 Signed Impressions: Service Date/Time: Thursday, May 26, 2016 09:26 - CONCLUSION: Focus of diminished density in the high convexity left parietal-occipital region is 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 Other edematous process is not entirely excluded. Remington Restrepo MD Head CT 05/24/16 1032 Signed Impressions: Service Date/Time: Tuesday, May 24, 2016 13:55 - CONCLUSION: Area of decreased density high in the left parieto-occipital region. MRI may be helpful. Art Palacios MD FACR Chest X-Ray 05/24/16 1032 Signed Impressions: Service Date/Time: Tuesday, May 24, 2016 10:36 - CONCLUSION: Compensated cardiomegaly otherwise negative Art Palacios MD FACR Physical Exam HEENT: PERRLA; normocephalic; atraumatic; no jaundice. NECK: Neck is supple, no JVD, no lymphadenopathy. CHEST: CTA CARDIAC: RRR with no murmur gallop or rubs. ABDOMEN: Soft obese, nontender; no hepatosplenomegaly; bowel sounds are present x 4 quadrants EXTREMITIES: No clubbing, cyanosis, or edema. SKIN: Normal; no rash; no jaundice. 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 (Renu Bennett) Assessment and Plan Plan ASSESSMENT: -Severe anemia, heme positive stools. HH on admission 4.3/13.4. S/P 2U PRBC transfusion. Patient continues to refuse EGD/Colonoscopy. Received call that she is now agreeable. However, she is not agreeable for me. She will think this over and consider endoscopic evaluation later in week. Will recheck with patient tomorrow. No active bleeding. 8.6/ 25.4 -Altered mental status, per primary Head CT 05/24/16 Area of decreased density high in the left parieto-occipital region. Patient refusing MRI -End Stage Renal Disease on hemodialysis, renal diet -Elevated Troponin, Cardiology following - HTN, DM per primary. PLAN: - MARIA LUISA - Monitor HH - Transfuse as necessary - Will fu in am to see if she is agreeable for EGD/Colonoscopy-refusing now, will think about it and let us know tomorrow - Supportive care - Patient was seen and examined by Dr. Harding and myself and this note is written on his behalf. (Renu Bennett) Physician Comments Seen and examined with LUCIANO, re consulted by nurse to tell us that pt. is now agreeable to gi procedures. Patient however still not willing to be scoped. Says will agree by tomorrow. Will follow. (Dustin Harding MD) Renu Bennett May 26, 2016 12:35 Dustin Harding MD May 26, 2016 13:14
--- NOTE | 2016-05-26 15:14 | EC ---
Study Study Date:05/26/2016 STUDY CONCLUSIONS SUMMARY - Left ventricle: The cavity size was normal. Wall thickness was at the upper limits of normal. Systolic function was normal. The estimated ejection fraction was in the range of 55% to 60%. Wall motion was normal; there were no regional wall motion abnormalities. - Aortic valve: Valve area: 2.5cm^2 (Vmax). - Mitral valve: Mildly thickened annulus. Structurally normal valve. If LV function is below 40, please consider prescribing an ACEI or ARB or document rationale for non-use. PROCEDURE DATA STUDY STATUS: Elective. Procedure: Transthoracic echocardiography. Image quality was good. Scanning was performed from the parasternal, apical, and subcostal acoustic windows. Study completion: The patient tolerated the procedure well. Transthoracic echocardiography. M-mode, complete 2D, complete spectral Doppler, and color Doppler. Height: Height: 66in. Weight: Weight: 219.5lb. Body mass index: BMI: 35.5kg/m^2. Body surface area: BSA: 2.08m^2. Patient status: Inpatient. CARDIAC ANATOMY LEFT VENTRICLE: The cavity size was normal. Wall thickness was at the upper limits of normal. Systolic function was normal. The estimated ejection fraction was in the range of 55% to 60%. Wall motion was normal; there were no regional wall motion abnormalities. AORTIC VALVE: Trileaflet; normal thickness leaflets. Doppler: Transvalvular velocity was within the normal range. There was no stenosis. No regurgitation. Valve area: 2.5cm^2 (Vmax). Indexed valve area: 1.2cm^2/m^2 (Vmax). Peak gradient: 12mm Hg (S). AORTA: Aortic root: The aortic root was mildly dilated. MITRAL VALVE: Mildly thickened annulus. Structurally normal valve. Doppler: Transvalvular velocity was within the normal range. There was no evidence for stenosis. Trace regurgitation. Peak gradient: 6mm Hg (D). LEFT ATRIUM: The atrium was normal in size. RIGHT VENTRICLE: The cavity size was normal. Wall thickness was normal. PULMONIC VALVE: Doppler: Transvalvular velocity was within the normal range. There was no evidence for stenosis. Trace regurgitation. TRICUSPID VALVE: Structurally normal valve. Doppler: Transvalvular velocity was within the normal range. Trace regurgitation. PULMONARY ARTERY: The main pulmonary artery was normal-sized. Systolic pressure was within the normal range. RIGHT ATRIUM: The atrium was normal in size. PERICARDIUM: There was no pericardial effusion. SYSTEMIC VEINS: Inferior vena cava: The vessel was normal in size. Patient weight: 219.5lb _Ejection fraction:_ 65-75% _Fractional shortening:_ 32% up to 5Kg 5-11.5Kg 11.6-22.9Kg 23-45Kg 45-57Kg Aortic Root 7-13 <17 13-22 17-27 17-27 LA diam 6-13 <23 24-38 33-47 37-40 RVID 10-17 7-15 7-15 7-18 8-17 LVIDd 12-22 <32 24-38 33-47 37-40 LVPW 2-4 3-6 5-7 6-8 7-8 IVS 2-4 3-6 5-7 6-8 7-8 BASIC MEASUREMENTS ADULT NORMAL Left ventricle LV internal dimension, ED, chordal *60.8 mm 43-52 level, PLAX LV internal dimension, ES, chordal *50.2 mm 23-38 level, PLAX Fractional shortening, chordal level, *17 % >29 PLAX LV posterior wall thickness, ED 10.9 mm IVS/LVPW ratio, ED 1.06 <1.3 Ventricular septum Septal thickness, ED 11.5 mm Aortic valve Leaflet separation 19 mm 15-26 Aorta Ascending aorta anterior-posterior 44 mm diameter, S BASIC MEASUREMENTS ADULT NORMAL Aortic valve Leaflet separation 19 mm 15-26 Aorta Root diameter, ED 32 mm 20-37 Left atrium Anterior-posterior dimension, ES 35 mm 19-40 Anterior-posterior dimension index, ES 1.68 cm/m^2 <2.2 LA/aortic root ratio 1.09 DOPPLER MEASUREMENTS ADULT NORMAL Main pulmonary artery Pressure, S 16 mm Hg =30 Pressure, ED 16 mm Hg Aortic valve Peak velocity, S 176 cm/s Peak gradient, S 12 mm Hg Valve area, Vmax 2.5 cm^2 Valve area index, Vmax 1.2 cm^2/m^2 Mitral valve Peak E-wave velocity 118 cm/s Peak A-wave velocity 105 cm/s Deceleration time *246 ms 150-230 Peak gradient, D 6 mm Hg Peak E/A ratio 1.1 Maximal regurgitant velocity 373 cm/s Tricuspid valve Regurgitant peak velocity 176 cm/s Peak RV-RA gradient, S 12 mm Hg Maximal regurgitant velocity 176 cm/s Systemic veins Estimated CVP 10 mm Hg Right ventricle RV pressure, S 22 mm Hg <30 Pulmonic valve Peak velocity, S 118 cm/s Regurgitant velocity, ED 125 cm/s LEGEND: Mean values are shown as u=mean value. Asterisk (*) barry values outside specified normal range. Prepared and signed by Den Chery [id number]
--- NOTE | 2016-05-26 15:19 | HHI.PR ---
Subjective Remarks f/u for GI bleed and AMS. patient was too tired to speak to me when I came in. I d/w nurse and dialysis nurse at bedside and stated sometimes patient's becomes agitated, but she is aware of her surroundings. When I did a sternal rub and asked her if she hears me she said yes. She would not answer any of my questions. patient did received a dose of Ativan in AM due to agitation getting an MRI. Objective Vitals Vital Signs Date Time Temp Pulse Resp B/P Pulse Ox O2 Delivery O2 Flow Rate FiO2 05/26/16 14:00 66 05/26/16 12:00 98.3 63 14 172/88 97 05/26/16 12:00 65 05/26/16 10:00 62 05/26/16 08:00 62 05/26/16 08:00 98.2 63 14 160/79 97 05/26/16 06:00 62 05/26/16 04:00 62 05/26/16 04:00 98.3 62 12 167/79 98 05/26/16 02:00 65 05/26/16 01:00 136/63 05/26/16 00:00 98.0 66 18 190/94 98 05/26/16 00:00 66 05/25/16 22:00 73 05/25/16 20:42 98 21 05/25/16 20:00 97.9 66 23 161/84 98 05/25/16 20:00 66 05/25/16 18:00 93 05/25/16 16:00 93 05/25/16 16:00 98.3 64 16 161/80 96 I/O 05/25/16 05/25/16 05/25/16 05/26/16 05/26/16 05/26/16 07:00 15:00 23:00 07:00 15:00 23:00 Intake Total 582 ml 350 ml 617 ml 75 ml 360 ml Balance 582 ml 350 ml 617 ml 75 ml 360 ml Intake Oral 350 ml 10 ml 280 ml IV Total 82 ml 117 ml 65 ml 80 ml Packed Cells 500 ml 500 ml # Bowel Movements 6 2 Result Diagram: 05/26/16 0538 05/26/16 0530 Imaging Last Impressions Brain MRI 05/26/16 0000 Signed Impressions: Service Date/Time: Thursday, May 26, 2016 09:26 - CONCLUSION: Focus of diminished density in the high convexity left parietal-occipital region is 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 Other edematous process is not entirely excluded. Remington Restrepo MD Head CT 05/24/16 1032 Signed Impressions: Service Date/Time: Tuesday, May 24, 2016 13:55 - CONCLUSION: Area of decreased density high in the left parieto-occipital region. MRI may be helpful. Art Palacios MD FACR Chest X-Ray 05/24/16 1032 Signed Impressions: Service Date/Time: Tuesday, May 24, 2016 10:36 - CONCLUSION: Compensated cardiomegaly otherwise negative Art Palacios MD FACR Objective Remarks GENERAL: Patient is lying in bed in NAD but will not wake up to speak to me. CARDIOVASCULAR: Regular rate and rhythm without murmurs, gallops, or rubs. RESPIRATORY: Breath sounds equal bilaterally. No accessory muscle use. GASTROINTESTINAL: Abdomen soft, non-tender, nondistended. MUSCULOSKELETAL: No cyanosis, or edema. Neuro: she grossly moves all her extremity. per nurse she was speaking okay prior and was not altered. Medications and IVs Current Medications Sodium Chloride 2 ml 2 ml UNSCH PRN IVF FLUSH AFTER USING IV ACCESS; Start 05/24 at 10:45 Sodium Chloride (NS 250 ml Inj) 250 ml @ 15 mls/hr ONCE ONCE IV Last administered on 05/24/16t 11:48; Start 05/24/16 at 11:15; Stop 05/25/16 at 03:54; Status DC Diphenhydramine HCl (Benadryl) 25 mg ONCE ONCE PO ; Start 05/24/16 at 11:15; Stop 05/24/16 at 11:16; Status DC Diphenhydramine HCl (Benadryl) 25 mg UNSCH X1 PRN PO ITCHING; Start 05/24/16 at 11:15; Stop 05/27/16 at 11:14 Acetaminophen (Tylenol) 650 mg ONCE ONCE PO ; Start 05/24/16 at 11:15; Stop 05/24 at 11:16; Status DC Acetaminophen 650 mg 650 mg UNSCH X1 PRN PO FEVER; Start 05/24/16 at 11:15; Stop 05/27/16 at 11:14 Pantoprazole Sodium 80 mg/ Sodium Chloride 35 ml @ 420 mls/hr ONCE ONCE IV Last administered on 05/24/16 12:13; Start 05/24/16 at 11:30; Stop 05/24/16 at 11: 34; Status DC Pantoprazole Sodium/Sodium Chloride (Protonix Inj/NS Inj) 100 ml @ 10 mls/hr Q10H IV Last administered on 05/26/16 03:30; Start 05/24/16 at 11:30 Albuterol/ Ipratropium (Duoneb Neb) 1 ampule Q6HR NEB INH Last administered on 05/25/16 15:39; Start 05/24/16 at 12:45 Albuterol/ Ipratropium (Duoneb Neb) 1 ampule Q2HR NEB PRN INH WHEEZING; Start 05/24/16 at 12:45 Miscellaneous Information 1 Q361D XX ; Start 05/24/16 at 12:45 Chlorhexidine Gluconate (Chlorhexidine 2% Cloth) 3 pack Taper DAILY@04 TOP Last administered on 05/26/16 04:00; Start 05/25/16 at 04:00; Stop 05/21/17 at 03 :59 Chlorhexidine Gluconate (Chlorhexidine 2% Cloth) 3 pack UNSCH PRN TOP HYGIENIC CARE; Start 05/24/16 at 12:45 Dextrose (D50w (Vial) Inj) 25 ml UNSCH PRN IV PUSH HYPOGLYCEMIA-SEE COMMENTS; Start 05/24/16 at 13:45; Stop 05/25/16 at 09:53; Status DC Glucagon (Glucagon Inj) 1 mg UNSCH PRN OTHER HYPOGLYCEMIA-SEE COMMENTS; Start 05/24/16 at 13:45; Stop 05/25/16 at 09:53; Status DC Insulin Human Regular (NovoLIN R SUPPLEMENTAL SCALE) 1 Q6H SQ Last administered on 05/25/16 07:45; Start 05/24/16 at 13:45; Stop 05/25/16 at 09:45; Status DC Furosemide (Lasix Inj) 40 mg ONCE ONCE IV PUSH Last administered on 05/24/16 21:47; Start 05/24/16 at 13:45; Stop 05/24/16 at 13:49; Status DC Carvedilol (Coreg) 6.25 mg Q12HR PO Last administered on 05/26/16 09:00; Start 05/24/16 at 14:45 Hydralazine HCl (Apresoline) 50 mg BID PO Last administered on 05/26/16 09:00; Start 05/24/16 at 14:45 Hydralazine HCl (Apresoline Inj) 10 mg Q6H PRN IV PUSH SYS BP GREATER THAN 160 MMHG Last administered on 05/26/16 00:24; Start 05/24/16 at 15:00 Dextrose (D50w (Vial) Inj) 25 ml UNSCH PRN IV PUSH HYPOGLYCEMIA-SEE COMMENTS; Start 05/25/16 at 09:30 Glucagon (Glucagon Inj) 1 mg UNSCH PRN OTHER HYPOGLYCEMIA-SEE COMMENTS; Start 05/25/16 at 09:30 Insulin Human Regular (NovoLIN R SUPPLEMENTAL SCALE) 1 Q6H SQ Last administered on 05/26/16 09:30; Start 05/25/16 at 09:30 Hydromorphone HCl (Dilaudid Pf Inj) 0.5 mg ONCE ONCE IV PUSH Last administered on 05/26/16 01:02; Start 05/26/16 at 00:45; Stop 05/26/16 at 00:46; Status DC Lorazepam 1 mg 1 mg ONCE ONCE IV PUSH Last administered on 05/26/16 09:00; Start 05/26/16 at 09:00; Stop 05/26/16 at 09:01; Status DC Sodium Chloride 1,000 ml @ 0 mls/hr Q0M PRN IV For Prime & Rinse Back; Start at 11:48 Sodium Chloride 1,000 ml @ 200 mls/hr Q5H PRN IV WITH DIALYSIS; Start 05/26/16 at 11:48 Sodium Chloride (NS 1000 ml Inj) 1,000 ml @ 0 mls/hr Q0M PRN IV WITH DIALYSIS; Start 05/26/16 at 11:48 Mannitol (Mannitol Inj) 12.5 gm UNSCH PRN IV WITH DIALYSIS; Start 05/26/16 at 12 :00 Albumin Human (Albumin 25% Inj) 25 gm UNSCH PRN IV WITH DIALYSIS; Start at 12:00 Sodium Chloride (NS Flush) 5 ml UNSCH PRN IV FLUSH WITH DIALYSIS; Start at 12:00 Heparin Sodium (Porcine) (Heparin Inj) UNSCH PRN .XX WITH DIALYSIS; Start 05/26 at 12:00 Gentamicin Sulfate (Gentamicin (Dialysis) Inj) 20 mg UNSCH PRN IV WITH DIALYSIS ; Start 05/26/16 at 12:00 Ondansetron HCl (Zofran Inj) 4 mg UNSCH PRN IV WITH DIALYSIS; Start 05/26/16 at 12:00 Acetaminophen (Tylenol) 650 mg UNSCH PRN PO for headach, pain, temp > 101F; Start 05/26/16 at 12:00 Diphenhydramine HCl (Benadryl) 25 mg UNSCH PRN PO for hives/itching/anaphylaxis ; Start 05/26/16 at 12:00 Nitroglycerin (Nitrostat Sl) 0.4 mg UNSCH PRN SL CHEST PAIN; Start 05/26/16 at 12:00 Clonidine (Catapres) 0.1 mg UNSCH PRN PO for BP > 180/100 X 2 readings; Start 05/26/16 at 12:00 Gelatin (Gelfoam 12 Mm/7 Mm Top) 1 foam UNSCH PRN TOP SEE LABEL COMMENTS; Start 05/26/16 at 12:00 Lorazepam (Ativan Inj) 1 mg ONCE ONCE IV PUSH ; Start 05/26/16 at 14:00; Stop at 14:01; Status DC A/P Assessment and Plan Altered mental status -patient lethargic at the moment but was given Ativan earlier. per nurse she is not confused. -CT brain: Area of decreased density high in the left parieto-occipital region. 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 - at the moment ASA and anticoagulation contraindicated due to suspicion of GI bleed. -ECHO reviewed with EF of 55-60%. will get carotid us and lipid panel. -consult Neurologist. -will need to update patient on diagnosis when she is awake. late subacute or older watershed infarction -see management as above. Severe anemia. -on Protonix drip. GI is following, patient is refusing EGD/colonoscopy, but agreed today. -Monitor CBC s/p transfusion 3u PRBC, Hgb 7.4 -continue to monitor H/H. End-stage renal disease -receiving dialysis. Hypertension. uncontrolled. -patient has hx of difficulty controlling HTN. -continue with current regimen. Hyperglycemia with underlying history of diabetes mellitus -on SSI. Elevated troponin, -likely stress mediated from GI bleed. -Supply Chain Tech was consulted and no further work up indicated at the moment. Noncompliance -once patient more alert able to educate better on compliance. GI prophylaxis on Protonix drip and DVT prophylaxis with SCDs. -Chemical anticoagulation prophylaxis contraindicated in the setting of severe anemia on arrival Discharge Planning patient on Protonix gtt and continues to require further work up. Licha Greco MD May 26, 2016 15:19 Endo: Increase SSI medium scale with Accu-Chek q.6 hours for glycemic control. GI prophylaxis on Protonix drip and DVT prophylaxis with SCDs. Chemical anticoagulation prophylaxis contraindicated in the setting of severe anemia on arrival Licha Greco MD May 26, 2016 15:19
[2016-05-26 16:03] LABS: TRANSFERRIN IRON PROFILE 187 MG/DL (200-360)
[2016-05-26 16:05] LABS: FERRITIN 1824 NG/ML (8-252)
--- NOTE | 2016-05-26 21:52 | RADRPT ---
EXAM DATE/TIME: 05/26/2016 18:43 [facility] COMPARISON: No previous studies available for comparison. INDICATIONS : Cerebrovascular accident. MEDICAL HISTORY : Hypercholesterolemia. Hypertension. Coronary artery disease. . Renal failure. Dialysis. Di abetes. Anemia. Blood transfusion. SURGICAL HISTORY : Left AV fistula. ENCOUNTER: Initial ACUITY: 1 day PAIN SCORE: 0/10 LOCATION: Bilateral neck PEAK SYSTOLIC VELOCITIES (cm/sec): ICA/CCA RATIO: Right: 1.1 Left: 1.2 ICA: Right: 122 Left: 109 CCA: Right: 107 Left: 88 ECA: Right: 109 Left: 83 VERTEBRAL: Right: 65 antegrade Left: 71 antegrade Elevated flow velocities and ICA/CCA ratios have been found to correlate with increased degrees of vessel stenosis, calculated as percentage of diameter relative to a normal segment of distal ICA/CCA FINDINGS: Antegrade flow is seen in both vertebral arteries. There is mild atherosclerotic plaquing at the orig in of the right ICA without any significant stenosis. CONCLUSION: No evidence for hemodynamically significant stenosis. Brandy Laguerre MD on May 26, 2016 at 21:50 Board Certified Radiologist. This report was verified electronically.
[2016-05-27] VITALS (14 sets, daily range): BP systolic 155–193; BP diastolic 72–93; PULSE 67–73; RESP 14–26; TEMP 98.3–99; O2SAT 91–100
[2016-05-27] MEDS: hydrALAZINE HCL 20 MG/ML VIAL IV PUSH PRN ×3 (03:28→23:13)
[2016-05-27] MEDS: INSULIN NovoLIN REGULAR SUPPLEMENTAL SCALE SQ SCH ×4 (03:28→20:40)
[2016-05-27] MEDS: CHLORHEXIDINE GLUCONATE 2 % 1 PACK (2 CLOTHS) TOP SCH (03:33)
[2016-05-27] MEDS: PANTOPRAZOLE INJ 80 MG in SODIUM CHLORIDE 0.9% INJ 100 ML IV SCH ×2 (03:33→19:55)
[2016-05-27] MEDS: RESP: ALBUTEROL 2.5 MG/IPRATROPIUM 0.5 MG NEB (SCH) INH ×4 (03:58→22:01)
[2016-05-27] MEDS ORDERED: LORazepam 2 MG/ML VIAL IV PUSH ONE (04:45)
[2016-05-27 05:00] LABS: HEMATOCRIT 25.2 % (35.0-46.0); MEAN CELL VOLUME 88.5 FL (80.0-100.0); MEAN CORPUSCULAR HEMOGLOBIN 30.7 PG (27.0-34.0); MEAN CORPUSCULAR HGB CONC 34.7 % (32.0-36.0); PLATELET COUNT 211 TH/MM3 (150-450); RED BLOOD COUNT 2.85 MIL/MM3 (4.00-5.30); RED CELL DISTRIBUTION WIDTH 19.2 % (11.6-17.2); REVIEW FLAG FINAL; WHITE BLOOD COUNT 9.3 TH/MM3 (4.0-11.0)
[2016-05-27 05:27] LABS: BICARBONATE 26.5 MEQ/L (21.0-32.0); HDL CHOLESTEROL 22.6 MG/DL (40.0-60.0); POTASSIUM 4.5 MEQ/L (3.5-5.1)
--- NOTE | 2016-05-27 06:10 | HHI.PR ---
Subjective Remarks With pain in her right hand ans also swelling. Will, do US to r.o DVT No fever or chills. More alert and oriented today. says she wants to go home. BP is elevated says is hard to control. No headache or motor deficit. No slurred speech. No n/v/d/c. Denies chest pain . Has epigastric pain . refusing GI work up. Objective Vitals Vital Signs Date Time Temp Pulse Resp B/P Pulse Ox O2 Delivery O2 Flow Rate FiO2 05/27/16 04:00 98.8 68 20 160/76 98 05/27/16 04:00 68 05/27/16 02:00 67 05/27/16 00:00 98.3 68 14 155/72 98 05/27/16 00:00 68 05/26/16 22:00 71 05/26/16 20:30 98 Nasal Cannula 2.00 05/26/16 20:00 69 05/26/16 20:00 98.5 69 21 185/88 98 05/26/16 18:00 66 05/26/16 16:00 98.7 71 18 182/86 97 05/26/16 16:00 66 05/26/16 14:00 66 05/26/16 12:00 98.3 63 14 172/88 97 05/26/16 12:00 65 05/26/16 10:00 62 05/26/16 08:00 62 05/26/16 08:00 98.2 63 14 160/79 97 05/26/16 06:00 62 I/O 05/26/16 05/26/16 05/26/16 05/27/16 05/27/16 05/27/16 07:00 15:00 23:00 07:00 15:00 23:00 Intake Total 75 ml 360 ml 81 ml Output Total 3000 ml Balance 75 ml 360 ml -2919 ml Intake Oral 10 ml 280 ml 50 ml IV Total 65 ml 80 ml 31 ml Output Hemodialysis 3000 ml # Bowel Movements 2 Result Diagram: 05/27/16 0432 05/27/16 0432 Imaging Last Impressions Carotid Artery Ultrasound 05/26/16 0000 Signed Impressions: Service Date/Time: Thursday, May 26, 2016 18:43 - CONCLUSION: No evidence for hemodynamically significant stenosis. 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 Other edematous process is not entirely excluded. Remington Restrepo MD Head CT 05/24/16 1032 Signed Impressions: Service Date/Time: Tuesday, May 24, 2016 13:55 - CONCLUSION: Area of decreased density high in the left parieto-occipital region. MRI may be helpful. Art Palacios MD FACR Chest X-Ray 05/24/16 1032 Signed Impressions: Service Date/Time: Tuesday, May 24, 2016 10:36 - CONCLUSION: Compensated cardiomegaly otherwise negative Art Palacios MD FACR Objective Remarks GENERAL: 56 yo F with BMI of 38, well nourished, well developed, in bed, appears anxious. SKIN: Warm and dry. HEAD: Atraumatic. Normocephalic. EYES: Pupils equal and round. No scleral icterus. No injection or drainage. ENT: No nasal bleeding or discharge. Mucous membranes pink and moist. NECK: Trachea midline. No JVD. CARDIOVASCULAR: Regular rate and rhythm. RESPIRATORY: No accessory muscle use. Clear to auscultation. Breath sounds equal bilaterally. GASTROINTESTINAL: Abdomen soft, mild tenderness, nondistended. Hepatic and splenic margins not palpable. MUSCULOSKELETAL: Extremities without clubbing, cyanosis, or edema. No obvious deformities. NEUROLOGICAL: Awake and alert. No obvious cranial nerve deficits. Motor grossly within normal limits. Five out of 5 muscle strength in the arms and legs. Normal speech. PSYCHIATRIC: Appropriate mood and affect; insight and judgment normal. A/P Assessment and Plan Altered mental status, improving -CT brain: Area of decreased density high in the left parieto-occipital region. 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 - at the moment ASA and anticoagulation contraindicated due to suspicion of GI bleed. -ECHO reviewed with EF of 55-60%. will get carotid us and lipid panel. -consult Neurologist. Late subacute or older watershed infarction -see management as above. Severe anemia. -on Protonix drip. GI is following, patient is refusing EGD/colonoscopy, but agreed today. -Monitor CBC s/p transfusion 3u PRBC, Hgb 7.4 -continue to monitor H/H. - refusing GI work up End-stage renal disease -receiving dialysis. Hypertension. uncontrolled. -patient has hx of difficulty controlling HTN. -increase hydralazine, monitor Hyperglycemia with underlying history of diabetes mellitus -on SSI. Elevated troponin -likely stress mediated from GI bleed. -Digital Marketer was consulted and no further work up indicated at the moment. Noncompliance -once patient more alert able to educate better on compliance. GI prophylaxis on Protonix drip and DVT prophylaxis with SCDs. -Chemical anticoagulation prophylaxis contraindicated in the setting of severe anemia on arrival Discharge Planning patient on Protonix gtt and continues to require further work up, BP is not controlled Annabella Glaser MD May 27, 2016 06:10
[2016-05-27] MEDS: hydrALAZINE HCL 50 MG TAB PO SCH ×2 (08:50→20:35)
[2016-05-27] MEDS: CARVEDILOL 6.25 MG TAB PO SCH ×2 (08:50→20:35)
--- NOTE | 2016-05-27 09:16 | MB ---
cc: STACY MARINELLI M.D. DATE OF CONSULTATION 05/27/2016 REASON FOR CONSULTATION She is seen in neurological consultation. She is 56 years old, seen this morning with history of CT and MRI of brain showing some subacute ischemic cerebrovascular event in the left parietal occipital head regions. HISTORY OF PRESENT ILLNESS She was noted to have some change in mental status, decreased responsiveness during dialysis or around dialysis and this was on the first of this month. She has been in the hospital in the unit and found to have some apparent GI bleed. The patient has a history of end-stage renal disease, diabetes mellitus, hypertension. 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 It is unclear how much of blood thinners or aspirin she has been taking at home. The patient said she had been taking Advil for pain. MEDICATIONS 1. Norvasc. 2. Coreg. 3. Hydralazine. 4. Gliburide. 5. Lopressor. 6. Renvela. She denies stroke history in the past. PHYSICAL EXAMINATION GENERAL: She is alert, anxious, oriented. NEUROLOGIC: Ocular movements were full. She is able to count fingers bilaterally. There is slight right facial flattening. No aphasia. She has good motor exam at the extremities on the bedside testing. Reflexes were absent throughout. Plantar responses probably flexor but she withdrew intensely during the evaluation. ANCILLARY DATA Carotid ultrasound shows no hemodynamically significant lesions. MRI brain and CT brain showing left parieto-occipital region subacute infarct. ASSESSMENT The left parieto-occipital subacute infarct likely. The MRI raised concern about other etiologies, though unlikely. The patient is not a candidate for blood thinners at this point due to the GI bleed. The echocardiogram is largely unremarkable as well as the carotid ultrasound. LDL is 46. Neurologic-dubon, would like to follow her in the office in a couple of weeks and we will need follow-up MRI brain study to be sure there is stability of this presumed cerebrovascular event. Eventually when clinically able to do so, resume antiplatelet therapy. May need extended heart monitoring looking for intermittent atrial fibrillation as well. Thank you for asking us to assist in her care. MD PADMA Og/NATASHA /8:28 AM /9:06 AM
--- NOTE | 2016-05-27 11:03 | HHI.NPPN ---
Subjective History of Present Illness The patient is a 56 yo [place] female who is known to our services for ESRD on HD. She was at our outpatient dialysis facility for her usual treatment this AM when it was noted that she was becoming mentally alerted. She made it through 2h & 45 mins of her 4h and 30 min treatment time. Her HD was stopped and she was evac'd to this facility for further evaluation. Laboratory findings show a Hgb of 4.3. NG tube was placed that has been clear for any coffee ground appearing output. FOBT positive. She remains mentally altered so history is not clear regarding any vomiting coffee grounds, abdominal pain, or black stools at home. Not certain if she was utilizing any NSAID medications. Receives Epogen 15,000U once weekly as outpatient and received 6.25mg of Ferrelcit QOW in the unit. Interval History Patient resting comfortably no verbal complaints currently. Affect appears to be at baseline. Patient with tendency not to participate in care. Review of Systems General Constitutional: Fatigue Respiratory Lungs: SOB Objective Data Data 05/26/16 05/27/16 19:00 07:00 Intake Total 360 ml 187 ml Output Total 3000 ml Balance -2640 ml 187 ml Intake Oral 280 ml 80 ml IV Total 80 ml 107 ml Output Hemodialysis 3000 ml # Bowel Movements 2 Vital Signs Date Time Temp Pulse Resp B/P Pulse Ox O2 Delivery O2 Flow Rate FiO2 05/27/16 08:15 100 21 05/27/16 06:00 72 05/27/16 04:00 98.8 68 20 160/76 98 05/27/16 04:00 68 05/27/16 02:00 67 05/27/16 00:00 98.3 68 14 155/72 98 05/27/16 00:00 68 05/26/16 22:00 71 05/26/16 20:30 98 Nasal Cannula 2.00 05/26/16 20:00 69 05/26/16 20:00 98.5 69 21 185/88 98 05/26/16 18:00 66 05/26/16 16:00 98.7 71 18 182/86 97 05/26/16 16:00 66 05/26/16 14:00 66 05/26/16 12:00 98.3 63 14 172/88 97 05/26/16 12:00 65 -: 05/27/16 0432 05/27/16 0432 Physical Exam General Appearance: No Acute Distress Neck Neck Exam: Neck Supple, Trachea Midline Pulmonary Resp Exam: Breath Sounds Equal, No Distress, Diminished Breath Sounds Cardiology CV Exam: Regular, Normal Sinus Rhythm Gastrointestinal/Abdomen GI Exam: Soft, Non-Tender Integumentary Skin Exam: Clear, Warm Extremeties Extremities Exam: No Edema Neurologic Neuro Exam: Alert, Awake Assessment/Plan Discussed Condition With: Patient Problem List: (1) ESRD (end stage renal disease) Plan: HD today. Will keep on MWF while hospitalized, then she is to resume TTS once outpatient. Medications should be adjusted for the patient's ESRD. Avoid gadolinium. (2) Severe anemia Plan: Continue Epogen for anemia renal disease. Iron saturation is low however ferritin is elevated slightly secondary to acute illness. I will hold on Venofer for the present. Admitted today that she has been using Aleve at home since her toe fx. (3) Altered mental status Plan: Patient appears to be at or near baseline. (4) Diabetes mellitus Plan: Mgmt as per primary (5) Hypertension Plan: Continue on home regimen. Adjust if needed after more stable. (6) Non-compliance Plan: Continues to be a very difficult case. Chronic non-compliance as outpatient regarding her dietary restrictions as well as medication adherence. She was initially refusing w/u, but she has slowly been coming around and completing after much coercing. Her long-term prognosis is poor given her non-compliance. Problem Qualifiers (1) Altered mental status: Qualified Code: R41.0 - Delirium Jillian Rubio MD May 27, 2016 11:03
--- NOTE | 2016-05-27 11:11 | HHI.GIFU ---
Subjective Remarks Pt resting in bed. No active bleeding. Tolerating diet. She is still refusing EGD/Colonoscopy- states she does not want to have any procedures done. Objective Vitals I&O Vital Signs Date Time Temp Pulse Resp B/P Pulse Ox O2 Delivery O2 Flow Rate FiO2 05/27/16 08:15 100 21 05/27/16 06:00 72 05/27/16 04:00 98.8 68 20 160/76 98 05/27/16 04:00 68 05/27/16 02:00 67 05/27/16 00:00 98.3 68 14 155/72 98 05/27/16 00:00 68 05/26/16 22:00 71 05/26/16 20:30 98 Nasal Cannula 2.00 05/26/16 20:00 69 05/26/16 20:00 98.5 69 21 185/88 98 05/26/16 18:00 66 05/26/16 16:00 98.7 71 18 182/86 97 05/26/16 16:00 66 05/26/16 14:00 66 05/26/16 12:00 98.3 63 14 172/88 97 05/26/16 12:00 65 I/O 05/26/16 05/26/16 05/26/16 05/27/16 05/27/16 05/27/16 07:00 15:00 23:00 07:00 15:00 23:00 Intake Total 75 ml 360 ml 81 ml 106 ml Output Total 3000 ml Balance 75 ml 360 ml -2919 ml 106 ml Intake Oral 10 ml 280 ml 50 ml 30 ml IV Total 65 ml 80 ml 31 ml 76 ml Output Hemodialysis 3000 ml # Bowel Movements 2 Laboratory Laboratory Tests Test 05/27/16 04:32 White Blood Count 9.3 Red Blood Count 2.85 Hemoglobin 8.7 Hematocrit 25.2 Mean Corpuscular Volume 88.5 Mean Corpuscular Hemoglobin 30.7 Mean Corpuscular Hemoglobin 34.7 Concent Red Cell Distribution Width 19.2 Platelet Count 211 Mean Platelet Volume 8.4 Sodium Level 138 Potassium Level 4.5 Chloride Level 99 Carbon Dioxide Level 26.5 Anion Gap 13 Blood Urea Nitrogen 54 Creatinine 7.13 Estimat Glomerular Filtration 6 Rate Random Glucose 163 Calcium Level 8.4 Phosphorus Level 6.4 Albumin 2.8 Triglycerides Level 235 Cholesterol Level 116 LDL Cholesterol 46 HDL Cholesterol 22.6 Cholesterol/HDL Ratio 5.13 Imaging Last Impressions Carotid Artery Ultrasound 05/26/16 0000 Signed Impressions: Service Date/Time: Thursday, May 26, 2016 18:43 - CONCLUSION: No evidence for hemodynamically significant stenosis. 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 Other edematous process is not entirely excluded. Remington Restrepo MD Head CT 05/24/16 1032 Signed Impressions: Service Date/Time: Tuesday, May 24, 2016 13:55 - CONCLUSION: Area of decreased density high in the left parieto-occipital region. MRI may be helpful. Art Palacios MD FACR Chest X-Ray 05/24/16 1032 Signed Impressions: Service Date/Time: Tuesday, May 24, 2016 10:36 - CONCLUSION: Compensated cardiomegaly otherwise negative Art Palacios MD FACR Physical Exam HEENT: PERRLA; normocephalic; atraumatic; no jaundice. NECK: Neck is supple, no JVD, no lymphadenopathy. CHEST: CTA CARDIAC: RRR with no murmur gallop or rubs. ABDOMEN: Soft obese, nontender; no hepatosplenomegaly; bowel sounds are present x 4 quadrants EXTREMITIES: No clubbing, cyanosis, or edema. SKIN: Normal; no rash; no jaundice. ANIMAL HUSBANDRY MANAGER: No focal deficits; A&O x3. Assessment and Plan Plan ASSESSMENT: -Severe anemia, heme positive stools. on admission 4.3/13.4. S/P 2U PRBC transfusion. Patient continues to refuse EGD/Colonoscopy. Received call yesterday that she was now agreeable, but told me yesterday she wanted to this this over. She is refusing both EGD and colonoscopy today. No active bleeding. 8.7/25.2. -Altered mental status, per primary Head CT 05/24/16 Area of decreased density high in the left parieto-occipital region. Patient refusing MRI -End Stage Renal Disease on hemodialysis, renal diet -Elevated Troponin, Cardiology following - HTN, DM per primary. PLAN: - MARIA LUISA - Monitor HH - Transfuse as necessary - Refusing egd/colonoscopy - Reconsult GI if patient agreeable to GI workup - Patient was seen and examined by Dr. Calvillo and myself and this note is written on his behalf. Renu Bennett May 27, 2016 11:11
[2016-05-27] MEDS: cloNIDine HCL 0.1 MG TAB PO PRN ×2 (14:34→16:53)
--- NOTE | 2016-05-27 14:53 | HHI.PR ---
Subjective Remarks Want to go home Objective Vital Signs Date Time Temp Pulse Resp B/P Pulse Ox O2 Delivery O2 Flow Rate FiO2 05/27/16 08:15 100 21 05/27/16 06:00 72 05/27/16 04:00 98.8 68 20 160/76 98 05/27/16 04:00 68 05/27/16 02:00 67 05/27/16 00:00 98.3 68 14 155/72 98 05/27/16 00:00 68 05/26/16 22:00 71 05/26/16 20:30 98 Nasal Cannula 2.00 05/26/16 20:00 69 05/26/16 20:00 98.5 69 21 185/88 98 05/26/16 18:00 66 05/26/16 16:00 98.7 71 18 182/86 97 05/26/16 16:00 66 I/O 05/26/16 05/26/16 05/26/16 05/27/16 05/27/16 05/27/16 07:00 15:00 23:00 07:00 15:00 23:00 Intake Total 75 ml 360 ml 81 ml 106 ml Output Total 3000 ml Balance 75 ml 360 ml -2919 ml 106 ml Intake Oral 10 ml 280 ml 50 ml 30 ml IV Total 65 ml 80 ml 31 ml 76 ml Output Hemodialysis 3000 ml # Bowel Movements 2 Result Diagram: 05/27/16 0432 05/27/16 0432 Imaging Alert, fully oriented Lungs: ventilated Heart: S1, S2 regular Abdomen: obese, no mass Ext: Left arm AV fistula Last Impressions Carotid Artery Ultrasound 05/26/16 0000 Signed Impressions: Service Date/Time: Thursday, May 26, 2016 18:43 - CONCLUSION: No evidence for hemodynamically significant stenosis. 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 Other edematous process is not entirely excluded. Remington Restrepo MD Head CT 05/24/16 1032 Signed Impressions: Service Date/Time: Tuesday, May 24, 2016 13:55 - CONCLUSION: Area of decreased density high in the left parieto-occipital region. MRI may be helpful. Art Palacios MD FACR Chest X-Ray 05/24/16 1032 Signed Impressions: Service Date/Time: Tuesday, May 24, 2016 10:36 - CONCLUSION: Compensated cardiomegaly otherwise negative Art Palacios MD FACR Current Medications Medications (Trade) Dose Ordered Sig/Shaun Route Start Time Stop Time Status Last Admin Sodium Chloride 2 ml 2 ml UNSCH PRN IVF 05/24/16 10:45 (Protonix Inj/NS Inj) 100 ml @ 10 mls/hr Q10H IV 05/24/16 11:30 05/27/16 03:33 Miscellaneous Information 1 Q361D XX 05/24/16 12:45 (Chlorhexidine 2% Cloth) 3 pack Taper DAILY@04 TOP 05/25/16 04:00 05/21/17 03:59 05/27/16 03:33 (Chlorhexidine 2% Cloth) 3 pack UNSCH PRN TOP 05/24/16 12:45 (Coreg) 6.25 mg Q12HR PO 05/24/16 14:45 05/27/16 08:50 (Apresoline Inj) 10 mg Q6H PRN IV PUSH 05/24/16 15:00 05/27/16 14:34 (D50w (Vial) Inj) 25 ml UNSCH PRN IV PUSH 05/25/16 09:30 (Glucagon Inj) 1 mg UNSCH PRN OTHER 05/25/16 09:30 Insulin Human Regular 1 1 Q6H SQ 05/25/16 09:30 05/27/16 14:28 Sodium Chloride 1,000 ml @ 0 mls/hr Q0M PRN IV 05/26/16 11:48 Sodium Chloride 1,000 ml @ 200 mls/hr Q5H PRN IV 05/26/16 11:48 (NS 1000 ml Inj) 1,000 ml @ 0 mls/hr Q0M PRN IV 05/26/16 11:48 (Mannitol Inj) 12.5 gm UNSCH PRN IV 05/26/16 12:00 (Albumin 25% Inj) 25 gm UNSCH PRN IV 05/26/16 12:00 (NS Flush) 5 ml UNSCH PRN IV FLUSH 05/26/16 12:00 (Heparin Inj) UNSCH PRN .XX 05/26/16 12:00 (Gentamicin (Dialysis) Inj) 20 mg UNSCH PRN IV 05/26/16 12:00 (Zofran Inj) 4 mg UNSCH PRN IV 05/26/16 12:00 (Tylenol) 650 mg UNSCH PRN PO 05/26/16 12:00 (Benadryl) 25 mg UNSCH PRN PO 05/26/16 12:00 (Nitrostat Sl) 0.4 mg UNSCH PRN SL 05/26/16 12:00 (Catapres) 0.1 mg UNSCH PRN PO 05/26/16 12:00 05/27/16 14:34 (Gelfoam 12 Mm/7 Mm Top) 1 foam UNSCH PRN TOP 05/26/16 12:00 (Roxicodone) 5 mg Q8H PRN PO 05/26/16 17:15 05/26/16 18:08 (Apresoline) 75 mg BID PO 05/27/16 21:00 ([place] 5-325 Mg) 1 tab Q6H PRN PO 05/27/16 14:15 Assessment and Plan Problem List: (1) Hypertension Status: Acute Plan: SBP 186 now. Meds is given Futher management by the managing team I will be available on a PRN basis (2) Severe anemia Status: Acute Plan: Troponin stable No chest pain GIB. Refuses GI workup Observation. No a candidate for cardiovascular intervention. Jeanette Yung MD May 27, 2016 14:53
--- NOTE | 2016-05-27 18:40 | RADRPT ---
EXAM DATE/TIME: 05/27/2016 15:50 [facility] COMPARISON: No previous studies available for comparison. INDICATIONS : Right arm pain. MEDICAL HISTORY : Hypercholesterolemia. Hypertension. CAD. Renal failure. Diabetes. Anemia. SURGICAL HISTORY : Dialysis. Left forearm fistula. Blood transfusions. ENCOUNTER: Initial ACUITY: 1 day PAIN SCORE: 8/10 LOCATION: Right arm. FINDINGS: Intact flow in the right jugular, subclavian, axillary and brachial vein. There is echogenic materia l seen within the lumen of the distal brachial vein and there is very little flow seen on color Doppl er. Flow is seen in the radial and ulnar veins. CONCLUSION: Positive for deep venous thrombosis in the distal basilic vein. Navneet Valentino MD on May 27, 2016 at 18:36 Board Certified Radiologist. This report was verified electronically.
[2016-05-27] MEDS: ACETAMINOPHEN/HYDROcodone 325 MG/5 MG TAB PO PRN (20:34)
[2016-05-27] MEDS: LORazepam 0.5 MG TAB PO PRN (20:34)
[2016-05-28] VITALS (14 sets, daily range): BP systolic 172–226; BP diastolic 64–117; PULSE 62–69; RESP 18–20; TEMP 97.5–99.2; O2SAT 89–96
[2016-05-28] MEDS: ACETAMINOPHEN/HYDROcodone 325 MG/5 MG TAB PO PRN (03:29)
[2016-05-28] MEDS: cloNIDine HCL 0.1 MG TAB PO PRN ×3 (03:29→22:41)
[2016-05-28] MEDS: INSULIN NovoLIN REGULAR SUPPLEMENTAL SCALE SQ SCH ×3 (03:30→15:30)
[2016-05-28] MEDS: CHLORHEXIDINE GLUCONATE 2 % 1 PACK (2 CLOTHS) TOP SCH (03:52)
[2016-05-28] MEDS: RESP: ALBUTEROL 2.5 MG/IPRATROPIUM 0.5 MG NEB (SCH) INH ×2 (03:55→08:58)
[2016-05-28] MEDS: hydrALAZINE HCL 20 MG/ML VIAL IV PUSH PRN ×3 (05:27→19:54)
[2016-05-28] MEDS: NIFEdipine 30 MG SUSTAINED RELEASE TAB PO SCH ×3 (06:13→21:31)
[2016-05-28] MEDS: hydrALAZINE HCL 50 MG TAB PO SCH ×2 (07:47→19:55)
[2016-05-28] MEDS: CARVEDILOL 6.25 MG TAB PO SCH ×2 (07:47→19:55)
--- NOTE | 2016-05-28 07:59 | HHI.PR ---
Subjective Remarks Patient with right arm DVT, however she also has anemia, refusing GI work up. Consult hem/onc for anticoagulation choice. Might consider heparin if not bleeding Patient says she has pain in her right hand, pain is improved with meds. No n/v/d/c. Says she did not have any bloody stool. She feesl tired. She is willing to do EGD/colonoscopy I discussed with GI service, attempt for tomorrow NPO after midnight. CLD today , she will be prepped. Objective Vitals Vital Signs Date Time Temp Pulse Resp B/P Pulse Ox O2 Delivery O2 Flow Rate FiO2 05/28/16 06:00 65 05/28/16 04:00 98.6 64 20 226/102 91 05/28/16 04:00 64 05/28/16 02:00 67 05/28/16 00:00 69 05/28/16 00:00 99.2 69 20 172/81 95 05/27/16 22:01 95 21 05/27/16 22:00 70 05/27/16 20:00 98.9 73 26 178/87 91 05/27/16 20:00 73 05/27/16 18:00 72 05/27/16 17:53 18 05/27/16 16:00 99.0 73 18 193/93 96 05/27/16 16:00 73 05/27/16 14:00 68 05/27/16 12:00 98.7 68 16 177/75 93 05/27/16 12:00 71 05/27/16 10:00 72 05/27/16 08:15 100 21 05/27/16 08:00 99.0 70 18 173/88 93 05/27/16 08:00 72 I/O 05/27/16 05/27/16 05/27/16 05/28/16 05/28/16 05/28/16 07:00 15:00 23:00 07:00 15:00 23:00 Intake Total 106 ml 600 ml 73 ml 60 ml Output Total 25 ml Balance 106 ml 575 ml 73 ml 60 ml Intake Oral 30 ml 600 ml 50 ml 20 ml IV Total 76 ml 23 ml 40 ml Output Urine Total 25 ml # Bowel Movements 1 Result Diagram: 05/27/16 0432 05/27/16 0432 Imaging Last Impressions Upper Extremity Ultrasound 05/27/16 0000 Signed Impressions: Service Date/Time: Friday, May 27, 2016 15:50 - CONCLUSION: Positive for deep venous thrombosis in the distal basilic vein. Navneet Valentino MD Carotid Artery Ultrasound 05/26/16 0000 Signed Impressions: Service Date/Time: Thursday, May 26, 2016 18:43 - CONCLUSION: No evidence for hemodynamically significant stenosis. 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 Other edematous process is not entirely excluded. Remington Restrepo MD Head CT 05/24/16 1032 Signed Impressions: Service Date/Time: Tuesday, May 24, 2016 13:55 - CONCLUSION: Area of decreased density high in the left parieto-occipital region. MRI may be helpful. Art Palacios MD FACR Chest X-Ray 05/24/16 1032 Signed Impressions: Service Date/Time: Tuesday, May 24, 2016 10:36 - CONCLUSION: Compensated cardiomegaly otherwise negative Art Palacios MD FACR Objective Remarks GENERAL: 56 yo F with BMI of 38, well nourished, well developed, in bed, appears anxious. SKIN: Warm and dry. HEAD: Atraumatic. Normocephalic. EYES: Pupils equal and round. No scleral icterus. No injection or drainage. ENT: No nasal bleeding or discharge. Mucous membranes pink and moist. NECK: Trachea midline. No JVD. CARDIOVASCULAR: Regular rate and rhythm. RESPIRATORY: No accessory muscle use. Clear to auscultation. Breath sounds equal bilaterally. GASTROINTESTINAL: Abdomen soft, mild tenderness, nondistended. Hepatic and splenic margins not palpable. MUSCULOSKELETAL: Right hand with edema and pain on palpation at the wrist. Left arm with fistula in place, present bruit. No obvious deformities. NEUROLOGICAL: Awake and alert. No obvious cranial nerve deficits. Motor grossly within normal limits. Five out of 5 muscle strength in the arms and legs. Normal speech. PSYCHIATRIC: Appropriate mood and affect; insight and judgment normal. A/P Assessment and Plan Altered mental status, improving -CT brain: Area of decreased density high in the left parieto-occipital region. 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 - at the moment ASA and anticoagulation contraindicated due to suspicion of GI bleed. -ECHO reviewed with EF of 55-60%. will get carotid us and lipid panel. -consult Neurologist. Late subacute or older watershed infarction -see management as above. Severe anemia. -on Protonix drip. GI is following, patient is refusing EGD/colonoscopy, but agreed today. -Monitor CBC s/p transfusion 3u PRBC, Hgb 7.4 -continue to monitor H/H. - refusing GI work up End-stage renal disease -receiving dialysis. Hypertension. uncontrolled. -patient has hx of difficulty controlling HTN. -increase hydralazine, monitor Hyperglycemia with underlying history of diabetes mellitus -on SSI. Elevated troponin -likely stress mediated from GI bleed. -Cleaning And Washing Equipment Operator was consulted and no further work up indicated at the moment. Noncompliance -once patient more alert able to educate better on compliance. GI prophylaxis on Protonix drip and DVT prophylaxis with SCDs. -Chemical anticoagulation prophylaxis contraindicated in the setting of severe anemia on arrival Discharge Planning patient on Protonix gtt and continues to require further work up, BP is not controlled Refusing labs/tests. Will consult palliative care for goal of care Annabella Glaser MD May 28, 2016 07:59
--- NOTE | 2016-05-28 08:56 | HHI.GIFU ---
Subjective Remarks Reconsulted for EGD/Colonoscopy- Per Dr. Glaser and nurse, patient now agreeable. D/W patient procedure/prep. At first, she was reluctant, but then she agreed to the procedure. No active bleeding. (Renu Bennett) Objective Vitals I&O Vital Signs Date Time Temp Pulse Resp B/P Pulse Ox O2 Delivery O2 Flow Rate FiO2 05/28/16 08:00 97.5 63 18 216/91 89 05/28/16 08:00 63 05/28/16 06:00 65 05/28/16 04:00 98.6 64 20 226/102 91 05/28/16 04:00 64 05/28/16 02:00 67 05/28/16 00:00 69 05/28/16 00:00 99.2 69 20 172/81 95 05/27/16 22:01 95 21 05/27/16 22:00 70 05/27/16 20:00 98.9 73 26 178/87 91 05/27/16 20:00 73 05/27/16 18:00 72 05/27/16 17:53 18 05/27/16 16:00 99.0 73 18 193/93 96 05/27/16 16:00 73 05/27/16 14:00 68 05/27/16 12:00 98.7 68 16 177/75 93 05/27/16 12:00 71 05/27/16 10:00 72 I/O 05/27/16 05/27/16 05/27/16 05/28/16 05/28/16 05/28/16 07:00 15:00 23:00 07:00 15:00 23:00 Intake Total 106 ml 600 ml 73 ml 60 ml Output Total 25 ml Balance 106 ml 575 ml 73 ml 60 ml Intake Oral 30 ml 600 ml 50 ml 20 ml IV Total 76 ml 23 ml 40 ml Output Urine Total 25 ml # Bowel Movements 1 Imaging Last Impressions Upper Extremity Ultrasound 05/27/16 0000 Signed Impressions: Service Date/Time: Friday, May 27, 2016 15:50 - CONCLUSION: Positive for deep venous thrombosis in the distal basilic vein. Navneet Valentino MD Carotid Artery Ultrasound 05/26/16 0000 Signed Impressions: Service Date/Time: Thursday, May 26, 2016 18:43 - CONCLUSION: No evidence for hemodynamically significant stenosis. 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 Other edematous process is not entirely excluded. Remington Restrepo MD Head CT 05/24/16 1032 Signed Impressions: Service Date/Time: Tuesday, May 24, 2016 13:55 - CONCLUSION: Area of decreased density high in the left parieto-occipital region. MRI may be helpful. Art Palacios MD FACR Chest X-Ray 05/24/16 1032 Signed Impressions: Service Date/Time: Tuesday, May 24, 2016 10:36 - CONCLUSION: Compensated cardiomegaly otherwise negative Art Palacios MD FACR Physical Exam HEENT: PERRLA; normocephalic; atraumatic; no jaundice. NECK: Neck is supple, no JVD, no lymphadenopathy. CHEST: CTA CARDIAC: RRR with no murmur gallop or rubs. ABDOMEN: Soft obese, nontender; no hepatosplenomegaly; bowel sounds are present x 4 quadrants EXTREMITIES: No clubbing, cyanosis, or edema. SKIN: Normal; no rash; no jaundice. CONICAL MIXER: No focal deficits; A&O x3. (Renu Bennett) Assessment and Plan Plan ASSESSMENT: -Severe anemia, heme positive stools. HH on admission 4.3/13.4. S/P 2U PRBC transfusion. No active bleeding. 8.7/25.2. She had been refusing, but is now agreeing. - DVT distal basilic vein. GI reconsulted for egd/colonoscopy prior to starting anticoagulation. - Altered mental status, IMPROVED. - End Stage Renal Disease on hemodialysis, renal diet - Elevated Troponin, Cardiology following - HTN, DM per primary. PLAN: - Plan for egd/colonoscopy in am - Obtain consents - Clear liquids - NPO after Mn - Golytely prep - Monitor HH - Transfuse as necessary - Reconsult GI if patient agreeable to GI workup - Patient was seen and examined by Dr. Harding and myself and this note is written on his behalf. (Renu Bennett) Physician Comments Seen and examined with LUCIANO, now agreeable to gi rizo. EGd/colonoscopy tomorrow. ( Dustin Harding MD) Renu Bennett May 28, 2016 08:56 Dustin Harding MD May 28, 2016 18:34
[2016-05-28 15:08] LABS: AUTOMATED NEUTROPHIL # 6.7 TH/MM3 (1.8-7.7); BASOPHIL # 0.1 TH/MM3 (0-0.2); BASOPHIL % 0.8 % (0.0-2.0); EOSINOPHIL # 0.2 TH/MM3 (0-0.4); EOSINOPHIL % 3.1 % (0.0-4.0); HEMATOCRIT 24.2 % (35.0-46.0); HEMO FLAGS DIFF FINAL; LYMPH % 6.6 % (9.0-44.0); LYMPHOCYTE # 0.5 TH/MM3 (1.0-4.8); MEAN CELL VOLUME 89.7 FL (80.0-100.0); MEAN CORPUSCULAR HGB CONC 33.4 % (32.0-36.0); MONO % 5.8 % (0.0-8.0); NEUT % 83.7 % (16.0-70.0); PLATELET COUNT 171 TH/MM3 (150-450); RED BLOOD COUNT 2.69 MIL/MM3 (4.00-5.30); RED CELL DISTRIBUTION WIDTH 19.2 % (11.6-17.2)
[2016-05-28 15:28] LABS: BICARBONATE 23.6 MEQ/L (21.0-32.0); POTASSIUM 4.5 MEQ/L (3.5-5.1)
[2016-05-28] MEDS ORDERED: PEG (High)/E-LYTE SOLN 4000 ML BTL PO ONE (16:00)
[2016-05-28] MEDS: PANTOPRAZOLE INJ 80 MG in SODIUM CHLORIDE 0.9% INJ 100 ML IV SCH (16:05)
--- NOTE | 2016-05-28 17:08 | HHI.NPPN ---
Subjective History of Present Illness The patient is a 56 yo [place] female who is known to our services for ESRD on HD. She was at our outpatient dialysis facility for her usual treatment this AM when it was noted that she was becoming mentally alerted. She made it through 2h & 45 mins of her 4h and 30 min treatment time. Her HD was stopped and she was evac'd to this facility for further evaluation. Laboratory findings show a Hgb of 4.3. NG tube was placed that has been clear for any coffee ground appearing output. FOBT positive. She remains mentally altered so history is not clear regarding any vomiting coffee grounds, abdominal pain, or black stools at home. Not certain if she was utilizing any NSAID medications. Receives Epogen 15,000U once weekly as outpatient and received 6.25mg of Ferrelcit QOW in the unit. Interval History Pt seen during HD. Resting. Consented to EGD/colonoscopy finally. DVT in R basilic. Requires scope prior to initiation of anticoagulants. (Esperanza Morgan) Review of Systems Respiratory Lungs: SOB (Esperanza Morgan) Objective Data Data 05/27/16 05/28/16 19:00 07:00 Intake Total 600 ml 133 ml Output Total 25 ml Balance 575 ml 133 ml Intake Oral 600 ml 70 ml IV Total 63 ml Output Urine Total 25 ml # Bowel Movements 1 Vital Signs Date Time Temp Pulse Resp B/P Pulse Ox O2 Delivery O2 Flow Rate FiO2 05/28/16 14:00 65 05/28/16 12:00 63 05/28/16 12:00 98.3 64 20 221/117 94 05/28/16 10:00 62 05/28/16 08:57 93 05/28/16 08:00 97.5 63 18 216/91 89 05/28/16 08:00 63 05/28/16 06:00 65 05/28/16 04:00 98.6 64 20 226/102 91 05/28/16 04:00 64 05/28/16 02:00 67 05/28/16 00:00 69 05/28/16 00:00 99.2 69 20 172/81 95 05/27/16 22:01 95 21 05/27/16 22:00 70 05/27/16 20:00 98.9 73 26 178/87 91 05/27/16 20:00 73 05/27/16 18:00 72 05/27/16 17:53 18 (Esperanza Morgan) -: 05/28/16 1459 05/28/16 1459 Medication Review Current Medications Medications (Trade) Dose Ordered Sig/Shaun Route Start Time Stop Time Status Last Admin Sodium Chloride 2 ml 2 ml UNSCH PRN IVF 05/24/16 10:45 (Protonix Inj/NS Inj) 100 ml @ 10 mls/hr Q10H IV 05/24/16 11:30 05/28/16 16:05 Miscellaneous Information 1 Q361D XX 05/24/16 12:45 (Chlorhexidine 2% Cloth) 3 pack Taper DAILY@04 TOP 05/25/16 04:00 05/21/17 03:59 05/28/16 03:52 (Chlorhexidine 2% Cloth) 3 pack UNSCH PRN TOP 05/24/16 12:45 (Coreg) 6.25 mg Q12HR PO 05/24/16 14:45 05/28/16 07:47 (Apresoline Inj) 10 mg Q6H PRN IV PUSH 05/24/16 15:00 05/28/16 16:16 (D50w (Vial) Inj) 25 ml UNSCH PRN IV PUSH 05/25/16 09:30 (Glucagon Inj) 1 mg UNSCH PRN OTHER 05/25/16 09:30 Insulin Human Regular 1 1 Q6H SQ 05/25/16 09:30 05/28/16 15:30 Sodium Chloride 1,000 ml @ 0 mls/hr Q0M PRN IV 05/26/16 11:48 Sodium Chloride 1,000 ml @ 200 mls/hr Q5H PRN IV 05/26/16 11:48 (NS 1000 ml Inj) 1,000 ml @ 0 mls/hr Q0M PRN IV 05/26/16 11:48 (Mannitol Inj) 12.5 gm UNSCH PRN IV 05/26/16 12:00 (Albumin 25% Inj) 25 gm UNSCH PRN IV 05/26/16 12:00 (NS Flush) 5 ml UNSCH PRN IV FLUSH 05/26/16 12:00 (Heparin Inj) UNSCH PRN .XX 05/26/16 12:00 (Gentamicin (Dialysis) Inj) 20 mg UNSCH PRN IV 05/26/16 12:00 (Zofran Inj) 4 mg UNSCH PRN IV 05/26/16 12:00 (Tylenol) 650 mg UNSCH PRN PO 05/26/16 12:00 (Benadryl) 25 mg UNSCH PRN PO 05/26/16 12:00 (Nitrostat Sl) 0.4 mg UNSCH PRN SL 05/26/16 12:00 (Catapres) 0.1 mg UNSCH PRN PO 05/26/16 12:00 05/28/16 16:16 (Gelfoam 12 Mm/7 Mm Top) 1 foam UNSCH PRN TOP 05/26/16 12:00 (Roxicodone) 5 mg Q8H PRN PO 05/26/16 17:15 05/27/16 16:53 (Apresoline) 75 mg BID PO 05/27/16 21:00 05/28/16 07:47 ([place] 5-325 Mg) 1 tab Q6H PRN PO 05/27/16 14:15 05/28/16 03:29 (Ativan) 0.5 mg Q8H PRN PO 05/27/16 18:45 05/27/16 20:34 (Procardia Xl) 30 mg DAILY PO 05/28/16 06:15 05/28/16 07:48 (Esperanza Morgan) Physical Exam General Appearance: No Acute Distress (Esperanza Morgan) Neck Neck Exam: Neck Supple, Trachea Midline (Esperanza Morgan) Pulmonary Resp Exam: Breath Sounds Equal, No Distress, Diminished Breath Sounds (Esperanza Morgan) Cardiology CV Exam: Regular, Normal Sinus Rhythm (Esperanza Morgan) Gastrointestinal/Abdomen GI Exam: Soft, Non-Tender (Esperanza Morgan) Integumentary Skin Exam: Clear, Warm (Esperanza Morgan) Extremeties Extremities Exam: No Edema Extremeties Remarks 1+ BLE and abdomen (Esperanza Morgan) Neurologic Neuro Exam: Alert, Awake (Esperanza Morgan) Assessment/Plan Discussed Condition With: Patient Problem List: (1) ESRD (end stage renal disease) Plan: Seen during HD. Increase UF to 4.5L. Medications should be adjusted for the patient's ESRD. Avoid gadolinium. (2) Severe anemia Plan: w/u for bleed underway (3) Altered mental status Plan: Patient appears to be at or near baseline. (4) Diabetes mellitus Plan: Mgmt as per primary (5) Hypertension Plan: Increase Procardia to 30mg BID. If no better by tomorrow, will increase Hydralazine to 75mg q8h. (6) Non-compliance Plan: Continues to be a very difficult case. Chronic non-compliance as outpatient regarding her dietary restrictions as well as medication adherence. She was initially refusing w/u, but she has slowly been coming around and completing after much coercing. Her long-term prognosis is poor given her non-compliance. (Esperanza Morgan) Plan The exam, history, and the medical decision-making described in the above note were completed with the assistance of the PA-C. I reviewed and agree with the findings presented. (Jillian Rubio MD) Problem Qualifiers (1) Altered mental status: Qualified Code: R41.0 - Delirium Esperanza Morgan May 28, 2016 17:07 Jillian Rubio MD Jun 17, 2016 10:46
--- NOTE | 2016-05-28 20:34 | MB ---
cc: CANDACE CHANELIS DATE OF CONSULTATION 05/28/2016 DATE OF 1960 The patient was seen in our at the [facility] on 05/28/2016. REASON FOR CONSULTATION A patient with DVT in the distal basilic vein. And with GI bleeding. HISTORY OF THE PRESENT ILLNESS Ms. Patel is a 56-year-old female who has multiple medical problems including end-stage renal disease currently on hemodialysis, hypertension and diabetes. She was brought to the emergency room with altered mental status and respiratory distress. The patient was found to be severely anemic on admission with a hemoglobin of 7.6. She has been getting blood transfusions during the course of her admission. She had Hemoccult positive stool and she was evaluated by GI. She initially had declined a colonoscopy but she has now agreed to it. During the course of her admission she developed upper extremity swelling in her right arm. Doppler U/S revealed distal brachial vein thrombosis. Due to the fact the patient is having GI bleed, anticoagulation has not been started. I have been consulted to make further recommendations in this patient. The patient states that she continues to have tarry stools. She is scheduled to undergo colonoscopy tomorrow. She has no previous history of blood clots. REVIEW OF SYSTEMS A comprehensive 14-point review of systems was completed which is negative except as described in the HPI. PAST MEDICAL HISTORY 1. End-stage renal disease on hemodialysis. 2. Hypertension. 3. Diabetes type 2. PAST SURGICAL HISTORY History of left forearm fistula. SOCIAL HISTORY She denies smoking cigarettes. No alcohol use. No illicit drug use. FAMILY HISTORY Reviewed and noncontributory to this admission. MEDICATIONS 1. Nifedipine 30 mg one tablet p.o. b.i.d. 2. Hydralazine 75 mg one tablet p.o. b.i.d. 3. Ativan 0.5 mg p.o. q.8h p.r.n. 4. Brinson 5/325 mg one tablet p.o. q.6h p.r.n. 5. Roxicodone 5 mg one tablet p.o. q.8h as needed. 6. Mannitol 12.5 milligrams. 7. Zofran 4 mg IV q.6h p.r.n. 8. Tylenol 650 mg one tablet p.o. p.r.n. 9. Clonidine 0.1 mg one tablet p.o. p.r.n. systolic pressure greater than 180. 10. Insulin. 11. Carvedilol 6.25 mg one tablet p.o. b.i.d. 12. DuoNebs q.2h p.r.n. 13. Pantoprazole GTT. ALLERGIES NO KNOWN DRUG ALLERGIES. PHYSICAL EXAMINATION VITAL SIGNS: Blood pressure is severely elevated to 221/117, pulse is in the 60s, temperature is 98.3, O2 sats are 94% on the room air. GENERAL: Acutely ill patient in no apparent distress. HEENT: Pupils are equal, round, react to light. EOMI. No oral thrush. No oral lesions. NECK: Supple. No JVD, bruits, no lymphadenopathy. CHEST: Clear to auscultation bilaterally. CARDIOVASCULAR: S1-S2 regular rate rhythm. ABDOMEN: Soft, nontender, nondistended. Bowel sounds are present. EXTREMITIES: Right upper extremity swelling noted. PSYCHIATRIC: Mood and affect appropriate. NEUROLOGIC: No focal deficits. LABORATORY DATA WBC is 8, hemoglobin is 8.1, MCV 89.7, platelet count is 171. Serum chemistries show sodium 131, potassium 4.5, chloride 94, CO2 23, BUN 70, creatinine 9.09, calcium 8.3. Coags show PT of 11.5, INR 1.0, PTT 20.3. IMAGING STUDIES Reviewed in the EMR. ASSESSMENT/PLAN This is a 56-year-old female with a history of end-stage renal disease, diabetes and hypertension who was admitted to the hospital with altered mental status and respiratory distress and she was found to be severely anemic. She has been requiring blood transfusions. 1. Thrombosis of the right upper extremity. The patient is currently having a GI bleed. I would recommend against any anticoagulation at this time until the patient has had a colonoscopy and we have made sure that she is not having active bleed. I would recommend applying warm compresses to the right arm. 2. GI bleed. The patient is now agreeable to a colonoscopy. I would defer this to GI. 3. Hypertensive urgency / uncontrolled blood pressure. I will defer this to primary team. 4. Anemia. Iron studies showed anemia of chronic disease with a ferritin of 1824. We will transfuse to keep her hemoglobin greater than 7.5. Check B12 and folate levels. Thank you for allowing me to participate in the care of this patient. I will continue to follow this patient along. MD BETSY Lopez/CHRISTOPHER /5:30 PM /8:06 PM ANGEL
[2016-05-29] VITALS (14 sets, daily range): BP systolic 182–214; BP diastolic 78–96; PULSE 59–67; RESP 12–20; TEMP 97.5–98.8; O2SAT 91–99
[2016-05-29] MEDS ORDERED: cloNIDine HCL 0.1 MG TAB PO ONE
[2016-05-29] MEDS: hydrALAZINE HCL 20 MG/ML VIAL IV PUSH PRN ×4 (02:39→22:43)
[2016-05-29] MEDS: PANTOPRAZOLE INJ 80 MG in SODIUM CHLORIDE 0.9% INJ 100 ML IV SCH ×3 (02:40→20:12)
[2016-05-29] MEDS: ACETAMINOPHEN/HYDROcodone 325 MG/5 MG TAB PO PRN ×4 (03:29→22:42)
[2016-05-29] MEDS: INSULIN NovoLIN REGULAR SUPPLEMENTAL SCALE SQ SCH ×4 (03:30→20:32)
[2016-05-29] MEDS: CHLORHEXIDINE GLUCONATE 2 % 1 PACK (2 CLOTHS) TOP SCH ×2 (04:00→23:32)
[2016-05-29 04:49] LABS: BICARBONATE 30.7 MEQ/L (21.0-32.0)
[2016-05-29] MEDS: hydrALAZINE HCL 50 MG TAB PO SCH ×3 (05:41→20:11)
--- NOTE | 2016-05-29 07:36 | HHI.PR ---
Subjective Remarks Had a BM after bowel prep, says non bloody, normal color. Pain in her right arm , hem onc advices compresses and hold on anticoagulation at this time. No fever or chills. No n/v/d/c. Objective Vitals Vital Signs Date Time Temp Pulse Resp B/P Pulse Ox O2 Delivery O2 Flow Rate FiO2 05/29/16 06:00 61 05/29/16 04:00 98.6 67 16 195/83 96 05/29/16 04:00 67 05/29/16 02:00 66 05/29/16 00:00 61 05/29/16 00:00 98.2 61 20 214/78 91 05/28/16 22:00 66 05/28/16 20:00 97.7 67 20 226/103 96 05/28/16 20:00 67 05/28/16 19:01 96 21 05/28/16 18:00 67 05/28/16 16:00 63 05/28/16 16:00 98.5 63 18 183/64 91 05/28/16 14:00 65 05/28/16 12:00 63 05/28/16 12:00 98.3 64 20 221/117 94 05/28/16 10:00 62 05/28/16 08:57 93 05/28/16 08:00 97.5 63 18 216/91 89 05/28/16 08:00 63 I/O 05/28/16 05/28/16 05/28/16 05/29/16 05/29/16 05/29/16 07:00 15:00 23:00 07:00 15:00 23:00 Intake Total 60 ml 630 ml 1015 ml 1577 ml Output Total 20 ml 4500 ml Balance 60 ml 610 ml -3485 ml 1577 ml Intake Oral 20 ml 630 ml 1000 ml 1500 ml IV Total 40 ml 15 ml 77 ml Output Urine Total 20 ml 0 ml Hemodialysis 4500 ml # Bowel Movements 1 2 0 2 Result Diagram: 05/28/16 1459 05/29/16 0405 Imaging Last Impressions Upper Extremity Ultrasound 05/27/16 0000 Signed Impressions: Service Date/Time: Friday, May 27, 2016 15:50 - CONCLUSION: Positive for deep venous thrombosis in the distal basilic vein. Navneet Valentino MD Carotid Artery Ultrasound 05/26/16 0000 Signed Impressions: Service Date/Time: Thursday, May 26, 2016 18:43 - CONCLUSION: No evidence for hemodynamically significant stenosis. 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 Other edematous process is not entirely excluded. Remington Restrepo MD Head CT 05/24/16 1032 Signed Impressions: Service Date/Time: Tuesday, May 24, 2016 13:55 - CONCLUSION: Area of decreased density high in the left parieto-occipital region. MRI may be helpful. Art Palacios MD FACR Chest X-Ray 05/24/16 1032 Signed Impressions: Service Date/Time: Tuesday, May 24, 2016 10:36 - CONCLUSION: Compensated cardiomegaly otherwise negative Art Palacios MD FACR Objective Remarks GENERAL: 56 yo F with BMI of 38, well nourished, well developed, in bed, appears anxious. SKIN: Warm and dry. HEAD: Atraumatic. Normocephalic. EYES: Pupils equal and round. No scleral icterus. No injection or drainage. ENT: No nasal bleeding or discharge. Mucous membranes pink and moist. NECK: Trachea midline. No JVD. CARDIOVASCULAR: Regular rate and rhythm. RESPIRATORY: No accessory muscle use. Clear to auscultation. Breath sounds equal bilaterally. GASTROINTESTINAL: Abdomen soft, mild tenderness, nondistended. Hepatic and splenic margins not palpable. MUSCULOSKELETAL: Right hand with edema and pain on palpation at the wrist. Left arm with fistula in place, present bruit. No obvious deformities. NEUROLOGICAL: Awake and alert. No obvious cranial nerve deficits. Motor grossly within normal limits. Five out of 5 muscle strength in the arms and legs. Normal speech. PSYCHIATRIC: Appropriate mood and affect; insight and judgment normal. A/P Assessment and Plan Altered mental status, improving -CT brain: Area of decreased density high in the left parieto-occipital region. 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 - at the moment ASA and anticoagulation contraindicated due to suspicion of GI bleed. -ECHO reviewed with EF of 55-60%. will get carotid us and lipid panel. -consult Neurologist. Late subacute or older watershed infarction -see management as above. Severe anemia. -on Protonix drip. GI is following, patient is refusing EGD/colonoscopy, but agreed today. -Monitor CBC s/p transfusion 3u PRBC, repeat Hgb 7.4 , h/h stable, monitor and transfuse as need -continue to monitor H/H. -agrees for GI work up, plan for scope 05/29 End-stage renal disease -receiving dialysis. Right arm basilic vein DVT. Hem onc advices compresses and hold on anticoagulation at this time, until GI clears patient. Note patient has peripheral line in legs. She has right arm DVT , she has left arm fistula, will consider central line if OK with nephro Hypertension. uncontrolled. -patient has hx of difficulty controlling HTN. -increase hydralazine, monitor Hyperglycemia with underlying history of diabetes mellitus -on SSI. Elevated troponin -likely stress mediated from GI bleed. -Gear Setter was consulted and no further work up indicated at the moment. Noncompliance -once patient more alert able to educate better on compliance. GI prophylaxis on Protonix drip and DVT prophylaxis with SCDs. -Chemical anticoagulation prophylaxis contraindicated in the setting of severe anemia on arrival Discharge Planning patient on Protonix gtt and continues to require further work up, BP is not controlled Refusing labs/tests. Will consult palliative care for goal of care Annabella Glaser MD May 29, 2016 07:36
--- NOTE | 2016-05-29 08:23 | HHI.PR ---
Review/Management Daily Summary 05/29 remains stable neuro, sl left facial weakness' miller full to confrontation right hand dvt per RN going for colonoscopy today plans per previous note office f/u 2 weeks after d/c Subjective Subjective Comments No acute neuro events reported No headache Active Medications Current Medications Medications (Trade) Dose Ordered Sig/Shaun Route Start Time Stop Time Status Last Admin Sodium Chloride 2 ml 2 ml UNSCH PRN IVF 05/24/16 10:45 (Protonix Inj/NS Inj) 100 ml @ 10 mls/hr Q10H IV 05/24/16 11:30 05/29/16 02:40 Miscellaneous Information 1 Q361D XX 05/24/16 12:45 (Chlorhexidine 2% Cloth) 3 pack Taper DAILY@04 TOP 05/25/16 04:00 05/21/17 03:59 05/29/16 04:00 (Chlorhexidine 2% Cloth) 3 pack UNSCH PRN TOP 05/24/16 12:45 (Coreg) 6.25 mg Q12HR PO 05/24/16 14:45 05/28/16 19:55 (Apresoline Inj) 10 mg Q6H PRN IV PUSH 05/24/16 15:00 05/29/16 02:39 (D50w (Vial) Inj) 25 ml UNSCH PRN IV PUSH 05/25/16 09:30 (Glucagon Inj) 1 mg UNSCH PRN OTHER 05/25/16 09:30 Insulin Human Regular 1 1 Q6H SQ 05/25/16 09:30 05/29/16 03:30 Sodium Chloride 1,000 ml @ 0 mls/hr Q0M PRN IV 05/26/16 11:48 Sodium Chloride 1,000 ml @ 200 mls/hr Q5H PRN IV 05/26/16 11:48 (NS 1000 ml Inj) 1,000 ml @ 0 mls/hr Q0M PRN IV 05/26/16 11:48 (Mannitol Inj) 12.5 gm UNSCH PRN IV 05/26/16 12:00 (Albumin 25% Inj) 25 gm UNSCH PRN IV 05/26/16 12:00 (NS Flush) 5 ml UNSCH PRN IV FLUSH 05/26/16 12:00 (Heparin Inj) UNSCH PRN .XX 05/26/16 12:00 (Gentamicin (Dialysis) Inj) 20 mg UNSCH PRN IV 05/26/16 12:00 (Zofran Inj) 4 mg UNSCH PRN IV 05/26/16 12:00 (Tylenol) 650 mg UNSCH PRN PO 05/26/16 12:00 (Benadryl) 25 mg UNSCH PRN PO 05/26/16 12:00 (Nitrostat Sl) 0.4 mg UNSCH PRN SL 05/26/16 12:00 (Catapres) 0.1 mg UNSCH PRN PO 05/26/16 12:00 05/28/16 22:41 (Gelfoam 12 Mm/7 Mm Top) 1 foam UNSCH PRN TOP 05/26/16 12:00 (Roxicodone) 5 mg Q8H PRN PO 05/26/16 17:15 05/29/16 05:42 (Rock 5-325 Mg) 1 tab Q6H PRN PO 05/27/16 14:15 05/29/16 03:29 (Ativan) 0.5 mg Q8H PRN PO 05/27/16 18:45 05/27/16 20:34 (Procardia Xl) 30 mg BID PO 05/28/16 21:00 05/28/16 21:31 (Apresoline) 75 mg Q8HR PO 05/29/16 06:00 05/29/16 05:41 Allergies Allergies Coded Allergies No Known Allergies (Unverified04/08/16) Exam I&O / VS 05/28/16 05/28/16 05/29/16 15:00 23:00 07:00 Intake Total 630 ml 1015 ml 1577 ml Output Total 20 ml 4500 ml Balance 610 ml -3485 ml 1577 ml Intake Oral 630 ml 1000 ml 1500 ml IV Total 15 ml 77 ml Output Urine Total 20 ml 0 ml Hemodialysis 4500 ml # Bowel Movements 2 0 2 Vital Signs Date Time Temp Pulse Resp B/P Pulse Ox O2 Delivery O2 Flow Rate FiO2 05/29/16 06:00 61 05/29/16 04:00 98.6 67 16 195/83 96 05/29/16 04:00 67 05/29/16 02:00 66 05/29/16 00:00 61 05/29/16 00:00 98.2 61 20 214/78 91 05/28/16 22:00 66 05/28/16 20:00 97.7 67 20 226/103 96 05/28/16 20:00 67 05/28/16 19:01 96 21 05/28/16 18:00 67 05/28/16 16:00 63 05/28/16 16:00 98.5 63 18 183/64 91 05/28/16 14:00 65 05/28/16 12:00 63 05/28/16 12:00 98.3 64 20 221/117 94 05/28/16 10:00 62 05/28/16 08:57 93 Objective Micro and Labs Laboratory Tests Test 05/28/16 05/29/16 14:59 04:05 White Blood Count 8.0 Red Blood Count 2.69 Hemoglobin 8.1 Hematocrit 24.2 Mean Corpuscular Volume 89.7 Mean Corpuscular Hemoglobin 30.0 Mean Corpuscular Hemoglobin 33.4 Concent Red Cell Distribution Width 19.2 Platelet Count 171 Mean Platelet Volume 8.3 Neutrophils (%) (Auto) 83.7 Lymphocytes (%) (Auto) 6.6 Monocytes (%) (Auto) 5.8 Eosinophils (%) (Auto) 3.1 Basophils (%) (Auto) 0.8 Neutrophils # (Auto) 6.7 Lymphocytes # (Auto) 0.5 Monocytes # (Auto) 0.5 Eosinophils # (Auto) 0.2 Basophils # (Auto) 0.1 CBC Comment DIFF FINAL Differential Comment Sodium Level 131 138 Potassium Level 4.5 4.0 Chloride Level 94 98 Carbon Dioxide Level 23.6 30.7 Anion Gap 13 9 Blood Urea Nitrogen 70 37 Creatinine 9.09 6.49 Estimat Glomerular Filtration 5 7 Rate Random Glucose 304 185 Calcium Level 8.3 8.5 Vitamin B12 Level 449 Phosphorus Level 6.0 Albumin 2.8 Sourav Wilson MD May 29, 2016 08:23
[2016-05-29] MEDS: NIFEdipine 30 MG SUSTAINED RELEASE TAB PO SCH (09:05)
[2016-05-29] MEDS: CARVEDILOL 6.25 MG TAB PO SCH ×2 (09:05→20:11)
[2016-05-29] MEDS ORDERED: MORPHINE SULFATE 4 MG/ML INJ IV ONE (10:30)
[2016-05-29] MEDS ORDERED: hydrALAZINE HCL 20 MG/ML VIAL IV ONE (10:30)
[2016-05-29] MEDS ORDERED: PILL SPLITTER OTHER PRN (13:30)
--- NOTE | 2016-05-29 13:30 | PD.CONS ---
Consult Service Palliative Care . Consult Requested By Dr. Glaser . Primary Care Physician Unknown . Reason for Consultation a. To assist with evaluation and management of symptoms including: Pain, altered mental status b. To assist medical decision maker(s) with: better understanding of current medical conditions; weighing benefits/burdens of medical treatment options; making medical treatment decisions. . HPI History of Present Illness Ms. Patel is a 56-year-old female who presented via EMS to [facility] on 05/24 for evaluation of altered mental status. Past medical history is significant for ESRD-on hemodialysis, hypertension, and diabetes mellitus. Patient follows Dr. Rubio, nephrology, outpatient. Apparently Ms. Patel was receiving her normal outpatient dialysis () when she experienced alterations in mental status. Her hemodialysis was stopped and the patient was transported to [facility] for further evaluation. EMS reported the patient was initially oriented to person only, en route the patient became unresponsive (GCS of 3) sonorous respirations. BVM was used briefly to assist the patient's respirations. On presentation to the ED the patient was oriented to person and place, denying any physical complaints. Additional diagnostic findings in the ED: * Vital signs: Pulse 85, respirations 16, oxygen saturation 96% on 2L nasal cannula, BP 151/73, oral temperature 97.8 * WBC: 11.9, hemoglobin 4.3, hematocrit 13.4, platelets 289, neutrophils 82.3% * Sodium: 140, potassium 3.9, chloride 102, carbon dioxide 24.9, glucose 208, calcium 8.5 * BUN: 46, creatinine 3.69, GFR 13 * Total bilirubin: 0.6, AST 8, ALT 14, alkaline phosphatase 47 * Ammonia: 28 * Total creatine kinase: 155 * Troponin: 0.74 * Protein: 6.1, albumin 3.0 * PT: 11.5, INR 1.0, APTT 20.3 * Toxicology screening negative * Chest x-ray: Compensated cardiomegaly otherwise negative * EKG sinus rhythm, borderline left axis deviation, slightly prolonged QT interval, no acute ischemic abnormality Patient with critical lab values, hemoglobin of 4.3 hematocrit of 13.4. The patient had heme-positive black stool. Patient was subsequently transfused with 2 units PRBCs while in the ED. Troponin level elevated at 0.74, likely secondary to anemia/renal insufficiency. EKG showed no evidence of ischemia. Cardiology was consulted, and the patient will be followed by nephrology services as well. Gastroenterology was consulted for possible GI bleed. NGT was placed and did not reveal any blood in the stomach. Dr. Harding discussed EGD/colonoscopy with patient, but she refused any GI workup at that time. Recommendations for CT abdomen/pelvis. Patient was started on a Protonix drip and renal diet. Patient was admitted for further evaluation and medical management of severe anemia, melena and altered mental status. The following morning the patient's hemoglobin was 7.4 s/p transfusion. CT of the brain showed an area of decreased density high in the left parietal- occipital region - patient initially refusing MRI but later agreed. Dr. Yung, cardiology, was consulted secondary to patient's progressively increasing troponin level. Troponin of 0.74 on admission, increased t0 1.41. Echocardiogram showed LV function, EF 55% to 60%, trace regurgitation and mitral valve and tricuspid valve. Patient is not a candidate for ASA or anticoagulation secondary to anemia/GI bleed. Per notes, patient has a history of chronic noncompliance related to her dietary restrictions and medication regimen. Patient was seen in neurological consultation secondary to CT and MRI of the brain showing some subacute ischemic vascular event in the left parietal occipital regions. A carotid ultrasound showed no hemodynamically significant lesions. Neurology would like the patient to follow-up outpatient, recommending follow-up MRI brain study to confirm stability of presumed cardiovascular event. The patient was complaining of right arm pain. An ultrasound was positive for DVT in the distal basilic vein, however she is also anemic/possible GI bleed. Patient is now willing to consent to EGD/colonoscopy. Hematology/oncology recommending warm compresses and avoidance of anticoagulation and told the patient has had a colonoscopy to determine if there is an active bleed. Coloscopy sometime today 05/29/16 Palliative Care was consulted to assist with symptom management and to discuss with the patient/family the benefits and burdens of her current illnesses and the options regarding future care. . Function/Cognitive Trajectory Patient states she has been on hemodialysis for approximately one year. She states she is tolerating HD, functioning completely independently at home. Patient requesting to be discharged home. . Review of Systems ROS Limitations: Clinical Condition, Altered Mental Status, Uncooperative Constitutional: COMPLAINS OF: Pain (right upper extremity), Generalized weakness Respiratory: DENIES: Shortness of breath Gastrointestinal: DENIES: Abdominal pain, Black stools (patient denies), Bloody stools (patient denies), Vomiting blood (patient denies) Hematologic/Lymphatics: COMPLAINS OF: History of transfusions ( s/p transfusion on 04/26/16 for hemoglobin of 4.3) Psychiatric: COMPLAINS OF: Anxiety, Agitation Past Family Social History Coded Allergies: No Known Allergies (Unverified , 04/08/16) Past Medical History ESRD - on hemodialysis HTN DM . Past Surgical History Left forearm fistula . Reported Medications Aspirin Adult Low Strength (Aspirin) 81 Mg Tabdr 81 Mg PO DAILY Vitamin B-12 (Cyanocobalamin) 1,000 Mcg Tab 1,000 Mcg PO DAILY Hydralazine (Hydralazine HCl) 50 Mg Tab 50 Mg PO BID Take with a meal Metoprolol Succinate ER 24 HR (Metoprolol Succinate) 100 Mg Tab 100 Mg PO HS Glyburide 5 Mg Tab 5 Mg PO DAILY Take with meals at the same time each day Renvela (Sevelamer Carbonate) 800 Mg Tab 800 Mg PO TID Take with meals . Current Medications Medications (Trade) Dose Ordered Sig/Shaun Route Start Time Stop Time Status Last Admin Sodium Chloride 2 ml 2 ml UNSCH PRN IVF 05/24/16 10:45 (Protonix Inj/NS Inj) 100 ml @ 10 mls/hr Q10H IV 05/24/16 11:30 05/29/16 02:40 Miscellaneous Information 1 Q361D XX 05/24/16 12:45 (Chlorhexidine 2% Cloth) 3 pack Taper DAILY@04 TOP 05/25/16 04:00 05/21/17 03:59 05/29/16 04:00 (Chlorhexidine 2% Cloth) 3 pack UNSCH PRN TOP 05/24/16 12:45 (Coreg) 6.25 mg Q12HR PO 05/24/16 14:45 05/29/16 09:05 (Apresoline Inj) 10 mg Q6H PRN IV PUSH 05/24/16 15:00 05/29/16 09:31 (D50w (Vial) Inj) 25 ml UNSCH PRN IV PUSH 05/25/16 09:30 (Glucagon Inj) 1 mg UNSCH PRN OTHER 05/25/16 09:30 Insulin Human Regular 1 1 Q6H SQ 05/25/16 09:30 05/29/16 03:30 Sodium Chloride 1,000 ml @ 0 mls/hr Q0M PRN IV 05/26/16 11:48 Sodium Chloride 1,000 ml @ 200 mls/hr Q5H PRN IV 05/26/16 11:48 (NS 1000 ml Inj) 1,000 ml @ 0 mls/hr Q0M PRN IV 05/26/16 11:48 (Mannitol Inj) 12.5 gm UNSCH PRN IV 05/26/16 12:00 (Albumin 25% Inj) 25 gm UNSCH PRN IV 05/26/16 12:00 (NS Flush) 5 ml UNSCH PRN IV FLUSH 05/26/16 12:00 (Heparin Inj) UNSCH PRN .XX 05/26/16 12:00 (Gentamicin (Dialysis) Inj) 20 mg UNSCH PRN IV 05/26/16 12:00 (Zofran Inj) 4 mg UNSCH PRN IV 05/26/16 12:00 (Tylenol) 650 mg UNSCH PRN PO 05/26/16 12:00 (Benadryl) 25 mg UNSCH PRN PO 05/26/16 12:00 (Nitrostat Sl) 0.4 mg UNSCH PRN SL 05/26/16 12:00 (Catapres) 0.1 mg UNSCH PRN PO 05/26/16 12:00 05/28/16 22:41 (Gelfoam 12 Mm/7 Mm Top) 1 foam UNSCH PRN TOP 05/26/16 12:00 (Roxicodone) 5 mg Q8H PRN PO 05/26/16 17:15 05/29/16 05:42 (Plover 5-325 Mg) 1 tab Q6H PRN PO 05/27/16 14:15 05/29/16 09:29 (Ativan) 0.5 mg Q8H PRN PO 05/27/16 18:45 05/27/16 20:34 (Procardia Xl) 30 mg BID PO 05/28/16 21:00 05/29/16 09:05 (Apresoline) 75 mg Q8HR PO 05/29/16 06:00 05/29/16 05:41 . Family History Patient unwilling to provide . Substance Use Tobacco: No known Alcohol: No known Prescription med abuse: No known Illicits: No known . Psychosocial History Patient is originally from [place]. She has been to her , Bandar, for approximately 10 years. Bandar has 1 daughter, who is living in [place] and expecting a child. Ryanne has no children. Ryanne and her moved to [place] approximately one year ago because her wanted to get away from the cold. She states that things have been bad for them ever since they moved here. Ryanne states her at his leg amputated a few months ago secondary to a spider bite. Neither of them are working, they are trying to get disability. . Spiritual/Cultural Factors None Today's verbally stated goals: Patient initially refusing all workup at admission. She later agreed to a colonoscopy after much encouragement that was planned for today 05/29/16, it was apparently canceled per patient. She is now again refusing GI workup. Patient stating her goals or aggressive and she wishes to continue aggressive care, but she does not believe she needs to remain hospitalized. We discussed the consequences of undiagnosed gastrointestinal bleeding, but the patient is adamant that she does not have problem and demanding that she wants to go home. Ethical and Legal Issues Per [place] statutes, in the absence of written advanced directives healthcare proxy decision making will fall to the patient's . . Physical Exam Vital Signs Date Time Temp Pulse Resp B/P Pulse Ox O2 Delivery O2 Flow Rate FiO2 05/29/16 12:00 98.8 59 12 208/88 97 05/29/16 12:00 59 05/29/16 10:00 63 05/29/16 09:00 99 Nasal Cannula 2.00 05/29/16 08:00 97.8 62 14 182/84 97 05/29/16 08:00 61 05/29/16 06:00 61 05/29/16 04:00 98.6 67 16 195/83 96 05/29/16 04:00 67 05/29/16 02:00 66 05/29/16 00:00 61 05/29/16 00:00 98.2 61 20 214/78 91 05/28/16 22:00 66 05/28/16 20:00 97.7 67 20 226/103 96 05/28/16 20:00 67 05/28/16 19:01 96 21 4/5/17 18:00 67 05/28/16 16:00 63 05/28/16 16:00 98.5 63 18 183/64 91 05/28/16 14:00 65 05/28/16 05/29/16 19:00 07:00 Intake Total 630 ml 2592 ml Output Total 4520 ml 0 ml Balance -3890 ml 2592 ml Intake Oral 630 ml 2500 ml IV Total 92 ml Output Urine Total 20 ml 0 ml Hemodialysis 4500 ml # Bowel Movements 2 2 Exam CONSTITUTIONAL/GENERAL: This is an adequately nourished patient, in no apparent distress. TUBES/LINES/DRAINS: SKIN: No jaundice, rashes, or lesions. Ecchymoses on upper extremities. No wounds seen anteriorly. Skin temperature appropriate. Not diaphoretic. HEAD: Atraumatic. Normocephalic. EYES: Pupils equal and round and reactive. Extraocular motions intact. No scleral icterus. No injection or drainage. Fundi not examined. ENT: Hearing grossly normal. Nose without bleeding or purulent drainage. Throat without visible erythema, exudates, masses, or lesions. NECK: Trachea midline. Supple, nontender. No palpable thyroid enlargement or nodularity. CARDIOVASCULAR: Regular rate and rhythm without murmurs, gallops, or rubs. No JVD. Peripheral pulses symmetric. RESPIRATORY/CHEST: Symmetric, unlabored respirations. Clear to auscultation. Breath sounds equal bilaterally. No wheezes, rales, or rhonchi. GASTROINTESTINAL: Abdomen soft, non-tender, nondistended. No hepato-splenomegaly , or palpable masses. No guarding. Bowel sounds present. GENITOURINARY: Without palpable bladder distension. Dia catheter in place. MUSCULOSKELETAL: Extremities without clubbing, cyanosis, or edema. No joint tenderness or effusion noted. No calf tenderness. No mottling or clubbing. LYMPHATICS: No palpable cervical or supraclavicular adenopathy. NEUROLOGICAL: Awake and alert. Motor and sensory grossly within normal limits. Follows commands. Cognitively sharp. Moves all extremities. PSYCHIATRIC: No obvious anxiety/depression. no apparent hallucinations or other psychotic thought process. Diagnostic Tests Laboratory Laboratory Tests Test 05/27/16 05/28/16 05/29/16 04:32 14:59 04:05 White Blood Count 9.3 TH/MM3 8.0 TH/MM3 (4.0-11.0) (4.0-11.0) Red Blood Count 2.85 MIL/MM3 2.69 MIL/MM3 (4.00-5.30) (4.00-5.30) Hemoglobin 8.7 GM/DL 8.1 GM/DL (11.6-15.3) (11.6-15.3) Hematocrit 25.2 % 24.2 % (35.0-46.0) (35.0-46.0) Mean Corpuscular Volume 88.5 FL 89.7 FL (80.0-100.0) (80.0-100.0) Mean Corpuscular Hemoglobin 30.7 PG 30.0 PG (27.0-34.0) (27.0-34.0) Mean Corpuscular Hemoglobin 34.7 % 33.4 % Concent (32.0-36.0) (32.0-36.0) Red Cell Distribution Width 19.2 % 19.2 % (11.6-17.2) (11.6-17.2) Platelet Count 211 TH/MM3 171 TH/MM3 (150-450) (150-450) Mean Platelet Volume 8.4 FL 8.3 FL (7.0-11.0) (7.0-11.0) Sodium Level 138 MEQ/L 131 MEQ/L 138 MEQ/L (136-145) (136-145) (136-145) Potassium Level 4.5 MEQ/L 4.5 MEQ/L 4.0 MEQ/L (3.5-5.1) (3.5-5.1) (3.5-5.1) Chloride Level 99 MEQ/L 94 MEQ/L 98 MEQ/L (98-107) (98-107) (98-107) Carbon Dioxide Level 26.5 MEQ/L 23.6 MEQ/L 30.7 MEQ/L (21.0-32.0) (21.0-32.0) (21.0-32.0) Anion Gap 13 MEQ/L (5-15) 13 MEQ/L (5-15) 9 MEQ/L (5-15) Blood Urea Nitrogen 54 MG/DL (7-18) 70 MG/DL (7-18) 37 MG/DL (7-18) Creatinine 7.13 MG/DL 9.09 MG/DL 6.49 MG/DL (0.50-1.00) (0.50-1.00) (0.50-1.00) Estimat Glomerular Filtration 6 ML/MIN (>89) 5 ML/MIN (>89) 7 ML/MIN (>89) Rate Random Glucose 163 MG/DL 304 MG/DL 185 MG/DL (74-106) (74-106) (74-106) Calcium Level 8.4 MG/DL 8.3 MG/DL 8.5 MG/DL (8.5-10.1) (8.5-10.1) (8.5-10.1) Phosphorus Level 6.4 MG/DL 6.0 MG/DL (2.5-4.9) (2.5-4.9) Albumin 2.8 GM/DL 2.8 GM/DL (3.4-5.0) (3.4-5.0) Triglycerides Level 235 MG/DL (42-150) Cholesterol Level 116 MG/DL (120-200) LDL Cholesterol 46 MG/DL (0-99) HDL Cholesterol 22.6 MG/DL (40.0-60.0) Cholesterol/HDL Ratio 5.13 RATIO Neutrophils (%) (Auto) 83.7 % (16.0-70.0) Lymphocytes (%) (Auto) 6.6 % (9.0-44.0) Monocytes (%) (Auto) 5.8 % (0.0-8.0) Eosinophils (%) (Auto) 3.1 % (0.0-4.0) Basophils (%) (Auto) 0.8 % (0.0-2.0) Neutrophils # (Auto) 6.7 TH/MM3 (1.8-7.7) Lymphocytes # (Auto) 0.5 TH/MM3 (1.0-4.8) Monocytes # (Auto) 0.5 TH/MM3 (0-0.9) Eosinophils # (Auto) 0.2 TH/MM3 (0-0.4) Basophils # (Auto) 0.1 TH/MM3 (0-0.2) CBC Comment DIFF FINAL Differential Comment Vitamin B12 Level 449 PG/ML (193-986) Result Diagram: 05/28/16 2569 05/29/16 9190 Patient/Family Conference Issues Discussed: * Palliative care role, purpose, approach * Additional medical, psychosocial, and spiritual history * Patients general health, functional status, and cognitive changes in the months leading up to the current hospitalization * Patient/family understanding of the current medical problems * Patient/family understanding of prognosis * Patients goals of care as best understood from advance directives and/or conversations and/or values * Current medical treatment options and benefits/burdens of those options * Likely scenarios comparing ongoing aggressive care with a transition to comfort measures only * Questions answered to the best of my ability * Palliative care contact information provided Assessment and Plan Disease Oriented Problem List: (1) Chronic renal failure (2) Elevated troponin (3) Anemia (4) Noncompliance w/medication treatment due to intermit use ofmedication (5) Toe fracture, left (6) Melena (7) Diabetes mellitus (8) ESRD (end stage renal disease) (9) Altered mental status (10) Hypertension (11) Severe anemia Symptom Scale: (1) Pain 0-10 Scale: Unable to quantify Comment: Patient reporting pain in right hand, likely secondary to DVT. Pain is rated 8 out of 10 and described as "squeezing". Current orders for PRN morphine, Plover, and oxycodone for pain. . (2) Altered mental status 0-10 Scale: Unable to quantify Comment: . Pertinent Non-Medical Issues Psychosocial: Patient is originally from [place]. She has been to her , Bandar, for approximately 10 years. Bandar has 1 daughter, who is living in [place] and expecting a child. Ryanne has no children. Ryanne and her moved to [place] approximately one year ago because her wanted to get away from the cold. She states that things have been bad for them ever since they moved here. Ryanne states her at his leg amputated a few months ago secondary to a spider bite. Neither of them are working, they are trying to get disability. Spiritual: Mosque rosalinda Legal: Per [place] statutes, in the absence of written advanced directives healthcare proxy decision making would fall to the patient's . Ethical issues impacting care: No known ethical issues impacting care at this time . Important Contacts Bandar Patel, spouse: [phone] . Prognosis Patient is a 56-year-old female admitted with severe anemia and altered mental status. Her past medical history is significant for ESRD, hypertension and diabetes. Patient also has a history of chronic noncompliance related to her dietary restrictions and medication regimen. She is refusing further workup for possible GI bleed and is now requesting to be discharged. Although the patient appears stable at this time with no signs of active bleeding, her medical history and chronic noncompliance is concerning for future complications. . Code Status: Full Code Plan * FULL CODE * Decision-making: Per [place] statutes, in the absence of written advanced directives healthcare proxy decision-making falls to the patient's . * Goals: Patient verbalizing aggressive goals, however refusing further workup and requesting to be discharged. * Patient initially refusing all workup at admission. She later agreed to a colonoscopy after much encouragement that was planned for today 05/29/16, it was apparently canceled per patient. She is now again refusing GI workup. Patient stating her goals or aggressive and she wishes to continue aggressive care, but she does not believe she needs to remain hospitalized. We discussed the consequences of undiagnosed gastrointestinal bleeding, but the patient is adamant that she does not have problem and demanding that she wants to go home. * Discussed with patient's nurse and Renu Bennett, gastroenterology ANIMAL SITTER. * Symptom managementpain: Patient reporting pain in right hand, likely secondary to DVT. Pain is rated 8 out of 10 and described as "squeezing". Encouraging patient to keep right upper extremity elevated and utilize compresses. Current orders for PRN morphine, Plover, and oxycodone for pain. Palliative care will continue to monitor PRN vitamins and make accommodations as indicated. * Palliative care contact information was provided to the patient. * Palliative care will continue to follow this patient throughout her hospitalization to establish trust, assist with symptom management and clarification of medical treatment goals. . Thank you for the opportunity to participate in the care of Ms. Patel. . Attestation To help prompt me to consider important information that might be impacting today's encounter and assessment, information from prior notes written by myself or my colleagues may have been "brought forward" into today's note. My signature on this note, however, is an attestation that I personally performed the exam, history, and/or decision-making noted today, and, unless otherwise indicated, the interactions with patient, family, and staff as well as the review of records all occurred today. I also attest that the listed assessment and stated plan reflect my best clinical judgment today based on the combination of historical information, prior notes, and today's exam/ interactions. When time spent is documented, it refers only to time spent today by the signer, or if indicated, combined time spent today by collaborating physician/nurse practitioner. . Suzette March May 29, 2016 13:30
[2016-05-29] MEDS ORDERED: PEG (High)/E-LYTE SOLN 4000 ML BTL PO ONE (15:15)
[2016-05-29] MEDS: cloNIDine HCL 0.1 MG TAB PO PRN (16:47)
--- NOTE | 2016-05-29 17:00 | HHI.NPPN ---
Subjective History of Present Illness The patient is a 56 yo [place] female who is known to our services for ESRD on HD. She was at our outpatient dialysis facility for her usual treatment this AM when it was noted that she was becoming mentally alerted. She made it through 2h & 45 mins of her 4h and 30 min treatment time. Her HD was stopped and she was evac'd to this facility for further evaluation. Laboratory findings show a Hgb of 4.3. NG tube was placed that has been clear for any coffee ground appearing output. FOBT positive. She remains mentally altered so history is not clear regarding any vomiting coffee grounds, abdominal pain, or black stools at home. Not certain if she was utilizing any NSAID medications. Receives Epogen 15,000U once weekly as outpatient and received 6.25mg of Ferrelcit QOW in the unit. Interval History Patient appears to be more cooperative today. No verbal complaints. Alert. Review of Systems General General Remarks No verbal complaints. Respiratory Lungs: SOB Objective Data Data 05/28/16 05/29/16 19:00 07:00 Intake Total 630 ml 2592 ml Output Total 4520 ml 0 ml Balance -3890 ml 2592 ml Intake Oral 630 ml 2500 ml IV Total 92 ml Output Urine Total 20 ml 0 ml Hemodialysis 4500 ml # Bowel Movements 2 2 Vital Signs Date Time Temp Pulse Resp B/P Pulse Ox O2 Delivery O2 Flow Rate FiO2 05/29/16 14:00 59 05/29/16 12:00 98.8 59 12 208/88 97 05/29/16 12:00 59 05/29/16 10:00 63 05/29/16 09:00 99 Nasal Cannula 2.00 05/29/16 08:00 97.8 62 14 182/84 97 05/29/16 08:00 61 05/29/16 06:00 61 05/29/16 04:00 98.6 67 16 195/83 96 05/29/16 04:00 67 05/29/16 02:00 66 05/29/16 00:00 61 05/29/16 00:00 98.2 61 20 214/78 91 05/28/16 22:00 66 05/28/16 20:00 97.7 67 20 226/103 96 05/28/16 20:00 67 05/28/16 19:01 96 21 05/28/16 18:00 67 -: 05/28/16 1459 05/29/16 0405 Medication Review Inpatient Medications Acetaminophen (Tylenol) 650 mg UNSCH PRN PO for headach, pain 1-2,T> 101F; Start 05/26/16 at 12:00 Acetaminophen 650 mg 650 mg UNSCH X1 PRN PO FEVER; Start 05/24/16 at 11:15; Stop 05/27/16 at 11:14; Status DC Acetaminophen/ Hydrocodone Bitart ([place] 5-325 Mg) 1 tab Q6H PRN PO PAIN 3-6 Last administered on 05/29/16 16:47; Start 05/27/16 at 14:15 Albumin Human (Albumin 25% Inj) 25 gm UNSCH PRN IV WITH DIALYSIS; Start at 12:00 Albuterol/ Ipratropium (Duoneb Neb) 1 ampule Q2HR NEB PRN INH WHEEZING; Start 05/24/16 at 12:45 Carvedilol (Coreg) 6.25 mg Q12HR PO Last administered on 05/29/16 09:05; Start 05/24/16 at 14:45 Chlorhexidine Gluconate (Chlorhexidine 2% Cloth) 3 pack UNSCH PRN TOP HYGIENIC CARE; Start 05/24/16 at 12:45 Clonidine (Catapres) 0.1 mg ONCE ONCE PO Last administered on 05/29/16 00:26; Start 05/29/16 at 00:00; Stop 05/29/16 at 00:01; Status DC Dextrose (D50w (Vial) Inj) 25 ml UNSCH PRN IV PUSH HYPOGLYCEMIA-SEE COMMENTS; Start 05/25/16 at 09:30 Diphenhydramine HCl (Benadryl) 25 mg UNSCH PRN PO for hives/itching/anaphylaxis ; Start 05/26/16 at 12:00 Furosemide (Lasix Inj) 40 mg ONCE ONCE IV PUSH Last administered on 05/24/16 21:47; Start 05/24/16 at 13:45; Stop 05/24/16 at 13:49; Status DC Gelatin (Gelfoam 12 Mm/7 Mm Top) 1 foam UNSCH PRN TOP SEE LABEL COMMENTS; Start 05/26/16 at 12:00 Gentamicin Sulfate (Gentamicin (Dialysis) Inj) 20 mg UNSCH PRN IV WITH DIALYSIS ; Start 05/26/16 at 12:00 Glucagon (Glucagon Inj) 1 mg UNSCH PRN OTHER HYPOGLYCEMIA-SEE COMMENTS; Start 05/25/16 at 09:30 Heparin Sodium (Porcine) (Heparin Inj) UNSCH PRN .XX WITH DIALYSIS; Start 05/26 at 12:00 Hydralazine HCl (Apresoline Inj) 20 mg NOW ONCE IV Last administered on 10:36; Start 05/29/16 at 10:30; Stop 05/29/16 at 10:31; Status DC Hydralazine HCl (Apresoline) 75 mg Q8HR PO Last administered on 05/29/16 13:38 ; Start 05/29/16 at 06:00 Hydromorphone HCl (Dilaudid Pf Inj) 0.5 mg ONCE ONCE IV PUSH Last administered on 05/26/16 01:02; Start 05/26/16 at 00:45; Stop 05/26/16 at 00:46; Status DC Insulin Human Regular (NovoLIN R SUPPLEMENTAL SCALE) 1 Q6H SQ Last administered on 05/29/16 03:30; Start 05/25/16 at 09:30 Lorazepam (Ativan Inj) 0.5 mg ONCE ONCE IV PUSH Last administered on 05/27/16 05:08; Start 05/27/16 at 04:45; Stop 05/27/16 at 04:46; Status DC Lorazepam (Ativan) 0.5 mg Q8H PRN PO ANXIETY Last administered on 05/27/16 20: 34; Start 05/27/16 at 18:45 Lorazepam 1 mg 1 mg ONCE ONCE IV PUSH Last administered on 05/26/16 09:00; Start 05/26/16 at 09:00; Stop 05/26/16 at 09:01; Status DC Mannitol (Mannitol Inj) 12.5 gm UNSCH PRN IV WITH DIALYSIS; Start 05/26/16 at 12 :00 Miscellaneous (Pill Splitter) 1 ea UNSCH PRN OTHER SEE LABEL COMMENTS; Start at 13:30 Miscellaneous Information 1 Q361D XX ; Start 05/24/16 at 12:45 Morphine Sulfate (Morphine Inj) 2 mg NOW ONCE IV Last administered on 10:36; Start 05/29/16 at 10:30; Stop 05/29/16 at 10:31; Status DC Nifedipine (Procardia Xl) 60 mg BID PO ; Start 05/29/16 at 21:00 Nitroglycerin (Nitrostat Sl) 0.4 mg UNSCH PRN SL CHEST PAIN; Start 05/26/16 at 12:00 Ondansetron HCl (Zofran Inj) 4 mg UNSCH PRN IV WITH DIALYSIS; Start 05/26/16 at 12:00 Oxycodone HCl (Roxicodone) 5 mg Q8H PRN PO pain 7-10 Last administered on 15:02; Start 05/26/16 at 17:15 Pantoprazole Sodium 80 mg/ Sodium Chloride 35 ml @ 420 mls/hr ONCE ONCE IV Last administered on 05/24/16 12:13; Start 05/24/16 at 11:30; Stop 05/24/16 at 11: 34; Status DC Pantoprazole Sodium/Sodium Chloride (Protonix Inj/NS Inj) 100 ml @ 10 mls/hr Q10H IV Last administered on 05/29/16 13:37; Start 05/24/16 at 11:30 Polyethylene Glycol/ Electrolytes (Colyte Liq) 2,000 ml ONCE ONCE PO ; Start at 15:15; Stop 05/29/16 at 15:16; Status DC Sodium Chloride (NS 1000 ml Inj) 1,000 ml @ 0 mls/hr Q0M PRN IV WITH DIALYSIS; Start 05/26/16 at 11:48 Sodium Chloride (NS 250 ml Inj) 250 ml @ 15 mls/hr ONCE ONCE IV Last administered on 05/24/16 11:48; Start 05/24/16 at 11:15; Stop 05/25/16 at 03:54; Status DC Sodium Chloride (NS Flush) 5 ml UNSCH PRN IV FLUSH WITH DIALYSIS; Start at 12:00 Sodium Chloride 2 ml 2 ml UNSCH PRN IVF FLUSH AFTER USING IV ACCESS; Start 05/24 at 10:45 Physical Exam General Appearance: No Acute Distress Neck Neck Exam: Neck Supple, Trachea Midline Pulmonary Resp Exam: Breath Sounds Equal, No Distress, Diminished Breath Sounds Cardiology CV Exam: Regular, Normal Sinus Rhythm Gastrointestinal/Abdomen GI Exam: Soft, Non-Tender Integumentary Skin Exam: Clear, Warm Extremeties Extremities Exam: No Edema Neurologic Neuro Exam: Alert, Awake Psychiatric Psych Exam: Appropriate Responses Assessment/Plan Discussed Condition With: Patient Problem List: (1) ESRD (end stage renal disease) Plan: Next hemodialysis tomorrow. Patient clear Medications should be adjusted for the patient's ESRD. The patient is currently euvolemic. (2) Severe anemia Plan: w/u for bleed underway (3) Altered mental status Plan: Patient appears to be at baseline. (4) Diabetes mellitus Plan: Mgmt as per primary (5) Hypertension Plan: Blood pressures still markedly elevated. We'll increase Procardia to 60 mg twice a day continue hydralazine 75 mg 3 times a day. Consider adding angiotensin receptor avery if no improvement (6) Non-compliance Plan: Continues to be a very difficult case. Chronic non-compliance as outpatient regarding her dietary restrictions as well as medication adherence. She was initially refusing w/u, but she has slowly been coming around and completing after much coercing. Her long-term prognosis is poor given her non-compliance. Problem Qualifiers (1) Altered mental status: Qualified Code: R41.0 - Delirium Jillian Rubio MD May 29, 2016 17:00
[2016-05-29] MEDS: LORazepam 0.5 MG TAB PO PRN (20:11)
[2016-05-29] MEDS: NIFEdipine 60 MG SUSTAINED RELEASE TAB PO SCH (20:11)
[2016-05-29] MEDS ORDERED: NIFEdipine 30 MG SUSTAINED RELEASE TAB PO SCH (21:00)
--- NOTE | 2016-05-29 22:29 | PD.ONC.PN ---
Subjective Subjective Remarks refusing GI w/u again no overt bleeding wants to go home soon palliative care involved regarding goals of care d/w rn Objective Data Date Time Temp Pulse Resp B/P Pulse Ox O2 Delivery O2 Flow Rate FiO2 05/29/16 20:00 61 05/29/16 20:00 98.3 60 14 210/89 97 05/29/16 19:53 97 Nasal Cannula 2.00 05/29/16 18:00 62 05/29/16 16:00 62 05/29/16 16:00 97.5 62 13 205/96 99 05/29/16 14:00 59 05/29/16 12:00 98.8 59 12 208/88 97 05/29/16 12:00 59 05/29/16 10:00 63 05/29/16 09:00 99 Nasal Cannula 2.00 05/29/16 08:00 97.8 62 14 182/84 97 05/29/16 08:00 61 05/29/16 06:00 61 05/29/16 04:00 98.6 67 16 195/83 96 05/29/16 04:00 67 05/29/16 02:00 66 05/29/16 00:00 61 05/29/16 00:00 98.2 61 20 214/78 91 05/29/16 05/29/16 05/29/16 07:00 15:00 23:00 Intake Total 1577 ml 81 ml Balance 1577 ml 81 ml Result Diagram: 05/28/16 1459 05/29/16 0405 Laboratory Results Laboratory Tests Test 05/29/16 04:05 Sodium Level 138 MEQ/L Potassium Level 4.0 MEQ/L Chloride Level 98 MEQ/L Carbon Dioxide Level 30.7 MEQ/L Anion Gap 9 MEQ/L Blood Urea Nitrogen 37 MG/DL Creatinine 6.49 MG/DL Estimat Glomerular Filtration 7 ML/MIN Rate Random Glucose 185 MG/DL Calcium Level 8.5 MG/DL Phosphorus Level 6.0 MG/DL Albumin 2.8 GM/DL Administered Medications Medications (Trade) Dose Ordered Sig/Shaun Route PRN Reason Start Time Stop Time Status Last Admin Dose Admin Pantoprazole Sodium/Sodium Chloride (Protonix Inj/NS Inj) 100 ml @ 10 mls/hr Q10H IV 05/24/16 11:30 05/29/16 20:12 Miscellaneous Information 1 Q361D XX 4/1/17 12:45 05/24/16 12:45 Chlorhexidine Gluconate (Chlorhexidine 2% Cloth) 3 pack Taper DAILY@04 TOP 05/25/16 04:00 05/21/17 03:59 05/29/16 04:00 Carvedilol (Coreg) 6.25 mg Q12HR PO 05/24/16 14:45 05/29/16 20:11 Hydralazine HCl (Apresoline Inj) 10 mg Q6H PRN IV PUSH SYS BP GREATER THAN 160 MMHG 05/24/16 15:00 05/29/16 16:47 Insulin Human Regular (NovoLIN R SUPPLEMENTAL SCALE) 1 Q6H SQ 05/25/16 09:30 05/29/16 03:30 Clonidine (Catapres) 0.1 mg UNSCH PRN PO for BP > 180/100 X 2 readings 05/26/16 12:00 05/29/16 16:47 Oxycodone HCl (Roxicodone) 5 mg Q8H PRN PO pain 7-10 05/26/16 17:15 05/29/16 15:02 Acetaminophen/ Hydrocodone Bitart ([place] 5-325 Mg) 1 tab Q6H PRN PO PAIN 3-6 05/27/16 14:15 05/29/16 16:47 Lorazepam (Ativan) 0.5 mg Q8H PRN PO ANXIETY 05/27/16 18:45 05/29/16 20:11 Hydralazine HCl (Apresoline) 75 mg Q8HR PO 05/29/16 06:00 05/29/16 20:11 Nifedipine (Procardia Xl) 60 mg BID PO 05/29/16 21:00 05/29/16 20:11 Objective Remarks GENERAL: nad SKIN: Warm and dry. LYMPHATIC: No adenopathy. CARDIOVASCULAR: Regular rate and rhythm without murmurs. RESPIRATORY: Breath sounds equal bilaterally. No accessory muscle use. GASTROINTESTINAL: Abdomen soft, non-tender, nondistended. EXTREMITIES: No cyanosis, or edema. Assessment/Plan Problem List: (1) Hypertensive emergency Status: Acute (2) ESRD (end stage renal disease) Status: Acute (3) Severe anemia Status: Acute (4) Non-compliance Status: Acute (5) Thrombosis Status: Acute Assessment 56-year-old female with a history of end-stage renal disease, diabetes and hypertension who was admitted to the hospital with altered mental status and respiratory distress and she was found to be severely anemic and has GI bleed. 1. Thrombosis of the right upper extremity. - Hold anticoagulation in the setting of GI bleed and severe anemia 2. GI bleed. Patient is ambivalent about GI w/u 3. Acute Anemia--Hb now dropped to 8.1. Iron studies showed anemia of chronic disease with a ferritin of 1824. transfuse to keep her hemoglobin greater than 7.5. B12 normal. Folate pending 4. CKD on dialysis Dwain Marroquin MD May 29, 2016 22:29
[2016-05-30] VITALS (14 sets, daily range): BP systolic 180–214; BP diastolic 82–93; PULSE 56–87; RESP 11–18; TEMP 97.7–98.7; O2SAT 94–97
[2016-05-30] MEDS: INSULIN NovoLIN REGULAR SUPPLEMENTAL SCALE SQ SCH ×4 (02:19→20:33)
[2016-05-30] MEDS: cloNIDine HCL 0.1 MG TAB PO PRN ×2 (02:49→16:08)
[2016-05-30] MEDS: hydrALAZINE HCL 20 MG/ML VIAL IV PUSH PRN ×3 (04:09→18:19)
[2016-05-30] MEDS: hydrALAZINE HCL 50 MG TAB PO SCH ×3 (05:10→21:20)
[2016-05-30] MEDS: CARVEDILOL 6.25 MG TAB PO SCH ×2 (08:13→20:33)
[2016-05-30] MEDS: NIFEdipine 60 MG SUSTAINED RELEASE TAB PO SCH ×2 (08:13→20:33)
[2016-05-30] MEDS: ACETAMINOPHEN/HYDROcodone 325 MG/5 MG TAB PO PRN ×2 (08:14→18:19)
[2016-05-30] MEDS: PANTOPRAZOLE INJ 80 MG in SODIUM CHLORIDE 0.9% INJ 100 ML IV SCH (08:27)
--- NOTE | 2016-05-30 08:50 | HHI.PR ---
Subjective Remarks Patient in bed. She is alert and oriented x4. Say she had a normal colored stool. No sob she is sattting well on room air. No chest pain n/v/d/c. Has some pain right arm, swlling improving some. No fevers or chills. No abd pain. Denies any new motor deficit. Speech is clear. No headache. Says she feels good and wants to go home. Objective Vitals Vital Signs Date Time Temp Pulse Resp B/P Pulse Ox O2 Delivery O2 Flow Rate FiO2 05/30/16 08:24 96 Nasal Cannula 2.00 05/30/16 06:00 58 05/30/16 04:00 65 05/30/16 04:00 98.1 65 15 180/82 94 05/30/16 02:00 67 05/30/16 00:00 98.0 68 14 188/89 97 05/30/16 00:00 68 05/29/16 22:00 65 05/29/16 20:00 61 05/29/16 20:00 98.3 60 14 210/89 97 05/29/16 19:53 97 Nasal Cannula 2.00 05/29/16 18:00 62 05/29/16 16:00 62 05/29/16 16:00 97.5 62 13 205/96 99 05/29/16 14:00 59 05/29/16 12:00 98.8 59 12 208/88 97 05/29/16 12:00 59 05/29/16 10:00 63 05/29/16 09:00 99 Nasal Cannula 2.00 I/O 05/29/16 05/29/16 05/29/16 05/30/16 05/30/16 05/30/16 07:00 15:00 23:00 07:00 15:00 23:00 Intake Total 1577 ml 81 ml 512 ml 669 ml Balance 1577 ml 81 ml 512 ml 669 ml Intake Oral 1500 ml 450 ml 600 ml IV Total 77 ml 81 ml 62 ml 69 ml # Voids 1 1 1 # Bowel Movements 2 1 Result Diagram: 05/28/16 1459 05/29/16 0405 Imaging Last Impressions Upper Extremity Ultrasound 05/27/16 0000 Signed Impressions: Service Date/Time: Friday, May 27, 2016 15:50 - CONCLUSION: Positive for deep venous thrombosis in the distal basilic vein. Navneet Valentino MD Carotid Artery Ultrasound 05/26/16 0000 Signed Impressions: Service Date/Time: Thursday, May 26, 2016 18:43 - CONCLUSION: No evidence for hemodynamically significant stenosis. 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 Other edematous process is not entirely excluded. Remington Restrepo MD Head CT 05/24/16 1032 Signed Impressions: Service Date/Time: Tuesday, May 24, 2016 13:55 - CONCLUSION: Area of decreased density high in the left parieto-occipital region. MRI may be helpful. Art Palacios MD FACR Chest X-Ray 05/24/16 1032 Signed Impressions: Service Date/Time: Tuesday, May 24, 2016 10:36 - CONCLUSION: Compensated cardiomegaly otherwise negative Art Palacios MD FACR Objective Remarks GENERAL: 56 yo F with BMI of 38, well nourished, well developed, in bed, appears anxious. SKIN: Warm and dry. HEAD: Atraumatic. Normocephalic. EYES: Pupils equal and round. No scleral icterus. No injection or drainage. ENT: No nasal bleeding or discharge. Mucous membranes pink and moist. NECK: Trachea midline. No JVD. CARDIOVASCULAR: Regular rate and rhythm. RESPIRATORY: No accessory muscle use. Clear to auscultation. Breath sounds equal bilaterally. GASTROINTESTINAL: Abdomen soft, mild tenderness, nondistended. Hepatic and splenic margins not palpable. MUSCULOSKELETAL: Right hand with edema and pain on palpation at the wrist. Left arm with fistula in place, present bruit. No obvious deformities. NEUROLOGICAL: Awake and alert. No obvious cranial nerve deficits. Motor grossly within normal limits. Five out of 5 muscle strength in the arms and legs. Normal speech. PSYCHIATRIC: Appropriate mood and affect; insight and judgment normal. A/P Assessment and Plan Altered mental status. Resolved -CT brain: Area of decreased density high in the left parieto-occipital region. 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 - at the moment ASA and anticoagulation contraindicated due to suspicion of GI bleed ( presented with hgb of 4.3) -ECHO reviewed with EF of 55-60%. will get carotid us and lipid panel. -consult Neurologist, Dr Wilson cleared patient for DC to follow up as OP with him in 2 weeks Late subacute or older watershed infarction -see management as above. Severe anemia. HGB of 4.3 on admission. -on Protonix drip. GI is following, patient is refusing EGD/colonoscopy, but agreed today. -Monitor CBC s/p transfusion 3u PRBC, repeat Hgb 7.4 , h/h stable, monitor and transfuse as need -continue to monitor H/H. H/H has been stable so far -agrees for GI work up, plan for scope 05/29. Patient however refused again after taking prep. She has going back and forth with having colonoscopy/EGD during this admission. Palliative care was also following the patient. Seen by psych patient is competent. End-stage renal disease -receiving dialysis. Right arm basilic vein DVT. Hem onc advices compresses and hold on anticoagulation at this time, until GI clears patient. Note patient has peripheral line in legs. She has right arm DVT , she has left arm fistula. Patient refusing any GI work UP. Hypertension. uncontrolled. -patient has hx of difficulty controlling HTN. -increase hydralazine, monitor Hyperglycemia with underlying history of diabetes mellitus -on SSI. Elevated troponin -likely stress mediated from GI bleed. -Electroplating Technician was consulted and no further work up indicated at the moment. Patient need GI work up per cardiology Noncompliance -once patient more alert able to educate better on compliance. Patient counselled extensively. GI prophylaxis on Protonix drip and DVT prophylaxis with SCDs. -Chemical anticoagulation prophylaxis contraindicated in the setting of severe anemia on arrival Discharge Planning Refusing labs/tests. Consult palliative care for goal of care. Psych also consulted and patient is competent. Patient refusing further work up/labs she wants to go home. H/H has been stable. No sign of acute bleeding. Plan to discharge the patient home after HD today. Patioent is alert and oriented x4. I explained to the patient multiple times the risk of , stroke, severe GI bleed, cardiac events leading to . Patient expressed understanding and says she is willing to take the risk. Also nurse Zahraa Amanda RN present at bedside. Patient was adviced to follow up as OP with PCP and all consultants including GI , hem/onc, neurology, cardiology, nephrology. Repeat CBC in 2-3 days. Adviced compliance with follow up and with meds. Annabella Glaser MD May 30, 2016 08:50
[2016-05-30] MEDS ORDERED: HYDR50TA15 PO (08:54)
[2016-05-30] MEDS ORDERED: NIFE60TA8 PO (08:54)
--- NOTE | 2016-05-30 08:55 | HHI.DS ---
Discharge Summary Admission Date May 24, 2016 at 12:16 Discharge Date: May 31, 2016 Admitting Diagnosis severe anemia, melena, AMS (1) Non-compliance ICD Code: Z91.19 Diagnosis: Secondary (2) Thrombosis ICD Code: I82.90 Diagnosis: Principal (3) Severe anemia ICD Code: D64.9 Diagnosis: Principal (4) Hypertension ICD Code: I10 Diagnosis: Principal (5) Elevated troponin ICD Code: R74.8 Diagnosis: Principal (6) Altered mental status ICD Code: R41.82 Diagnosis: Principal (7) ESRD (end stage renal disease) ICD Code: N18.6 Diagnosis: Secondary (8) Diabetes mellitus ICD Code: E11.9 Diagnosis: Secondary (9) Melena ICD Code: K92.1 Diagnosis: Secondary (10) Pulmonary edema ICD Code: J81.1 Diagnosis: Secondary Procedures none , refused all procedures Brief History - From Admission The patient is a 56-year-old female with a past medical history of hypertension, diabetes mellitus, end stage renal disease on hemodialysis being followed by Dr. Rubio from Nephrology. The patient was undergoing hemodialysis earlier today and she was not acting like her normal self. After approximately mtn-beq-u-half hours, the patient became minimally responsive and upon arrival of EMS she was awake and oriented to person only. In route the patient apparently had GCS score of 3 with sonorous respirations. BVM was used to assist the patient's respiration and upon arrival to the ER she became awake and oriented. The patient denies any physical complaints. She denies any GI symptoms, in addition she denies any chest pain or shortness of breath. ABG was performed on room air which showed a pH of 7.49, CO2 30, pAO2 85, bicarb 22 and saturation of 94%. Her laboratory data significant for a mild elevation in troponin 0.74 and severe anemia with a hemoglobin of 4.3 and hematocrit of 13.4. Her urine drug screen is negative for opiates, benzodiazepines and amphetamines. Chest x-ray in the ER showed compensated cardiomegaly otherwise negative. She is scheduled to undergo a CT scan of the brain. When seen she is on 2 liters oxygen with saturation of 98-100% and hypertensive with a blood pressure 166/77. She is currently receiving a second unit of red blood cells. The patient was placed on a Protonix drip and is currently being seen by Nephrology service. Dr. Yung from Cardiology was notified by the ED physician regarding her troponin. In addition NG tube was placed in the ER with clear gastric contents aspirated. No evidence of any blood or coffee-ground. Dr. Harding from GI service was notified regarding the patient's hemoglobin as well. CBC/BMP: 05/28/16 1459 05/29/16 0405 Significant Findings Laboratory Tests Test 05/28/16 05/29/16 14:59 04:05 Red Blood Count 2.69 MIL/MM3 (4.00-5.30) Hemoglobin 8.1 GM/DL (11.6-15.3) Hematocrit 24.2 % (35.0-46.0) Red Cell Distribution Width 19.2 % (11.6-17.2) Neutrophils (%) (Auto) 83.7 % (16.0-70.0) Lymphocytes (%) (Auto) 6.6 % (9.0-44.0) Lymphocytes # (Auto) 0.5 TH/MM3 (1.0-4.8) Sodium Level 131 MEQ/L (136-145) Chloride Level 94 MEQ/L (98-107) Blood Urea Nitrogen 70 MG/DL (7-18) 37 MG/DL (7-18) Creatinine 9.09 MG/DL 6.49 MG/DL (0.50-1.00) (0.50-1.00) Estimat Glomerular Filtration 5 ML/MIN (>89) 7 ML/MIN (>89) Rate Random Glucose 304 MG/DL 185 MG/DL (74-106) (74-106) Calcium Level 8.3 MG/DL (8.5-10.1) Phosphorus Level 6.0 MG/DL (2.5-4.9) Albumin 2.8 GM/DL (3.4-5.0) Imaging Last Impressions Upper Extremity Ultrasound 05/27/16 0000 Signed Impressions: Service Date/Time: Friday, May 27, 2016 15:50 - CONCLUSION: Positive for deep venous thrombosis in the distal basilic vein. Navneet Valentino MD Carotid Artery Ultrasound 05/26/16 0000 Signed Impressions: Service Date/Time: Thursday, May 26, 2016 18:43 - CONCLUSION: No evidence for hemodynamically significant stenosis. 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 Other edematous process is not entirely excluded. Remington Restrepo MD Head CT 05/24/16 1032 Signed Impressions: Service Date/Time: Tuesday, May 24, 2016 13:55 - CONCLUSION: Area of decreased density high in the left parieto-occipital region. MRI may be helpful. Art Palacios MD FACR Chest X-Ray 05/24/162 Signed Impressions: Service Date/Time: Tuesday, May 24, 2016 10:36 - CONCLUSION: Compensated cardiomegaly otherwise negative Art Palacios MD FACR PE at Discharge GENERAL: 56 yo F with BMI of 38, well nourished, well developed, in bed, appears anxious. SKIN: Warm and dry. HEAD: Atraumatic. Normocephalic. EYES: Pupils equal and round. No scleral icterus. No injection or drainage. ENT: No nasal bleeding or discharge. Mucous membranes pink and moist. NECK: Trachea midline. No JVD. CARDIOVASCULAR: Regular rate and rhythm. RESPIRATORY: No accessory muscle use. Clear to auscultation. Breath sounds equal bilaterally. GASTROINTESTINAL: Abdomen soft, mild tenderness, nondistended. Hepatic and splenic margins not palpable. MUSCULOSKELETAL: Right hand with edema and pain on palpation at the wrist. Left arm with fistula in place, present bruit. No obvious deformities. NEUROLOGICAL: Awake and alert. No obvious cranial nerve deficits. Motor grossly within normal limits. Five out of 5 muscle strength in the arms and legs. Normal speech. PSYCHIATRIC: Appropriate mood and affect; insight and judgment normal. Pt update on day of discharge In the chair. Denies chest pain, n/v/d/c. BP is better controlled. Says she has less pain in her arm. Says she is not bleeding. Wants to go home. Hospital Course Altered mental status. Resolved -CT brain: Area of decreased density high in the left parieto-occipital region. 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 - at the moment ASA and anticoagulation contraindicated due to suspicion of GI bleed ( presented with hgb of 4.3) -ECHO reviewed with EF of 55-60%. will get carotid us and lipid panel. -consult Neurologist, Dr Wilson cleared patient for DC to follow up as OP with him in 2 weeks Late subacute or older watershed infarction -see management as above. Severe anemia. HGB of 4.3 on admission. -on Protonix drip. GI is following, patient is refusing EGD/colonoscopy, but agreed today. -Monitor CBC s/p transfusion 3u PRBC, repeat Hgb 7.4 , h/h stable, monitor and transfuse as need -continue to monitor H/H. H/H has been stable so far -agrees for GI work up, plan for scope 05/29. Patient however refused again after taking prep. She has going back and forth with having colonoscopy/EGD during this admission. Palliative care was also following the patient. Seen by psych patient is competent. End-stage renal disease -receiving dialysis. Right arm basilic vein DVT. Hem onc advices compresses and hold on anticoagulation at this time, until GI clears patient. Note patient has peripheral line in legs. She has right arm DVT , she has left arm fistula. Patient refusing any GI work UP. Hypertension. uncontrolled. -patient has hx of difficulty controlling HTN. -increase hydralazine, monitor Hyperglycemia with underlying history of diabetes mellitus -on SSI. Elevated troponin -likely stress mediated from GI bleed. -Tin Container Straightener was consulted and no further work up indicated at the moment. Patient need GI work up per cardiology Noncompliance -once patient more alert able to educate better on compliance. Patient counselled extensively. GI prophylaxis on Protonix drip and DVT prophylaxis with SCDs. -Chemical anticoagulation prophylaxis contraindicated in the setting of severe anemia on arrival Discharge Planning Refusing labs/tests. Consult palliative care for goal of care. Psych also consulted and patient is competent. Patient refusing further work up/labs she wants to go home. H/H has been stable. No sign of acute bleeding. Plan to discharge the patient home after HD today. Patioent is alert and oriented x4. I explained to the patient multiple times the risk of , stroke, severe GI bleed, cardiac events leading to . Patient expressed understanding and says she is willing to take the risk. Also nurse Zahraa Amanda RN present at bedside. Patient was adviced to follow up as OP with PCP and all consultants including GI , hem/onc, neurology, cardiology, nephrology. Repeat CBC in 2-3 days. Adviced compliance with follow up and with meds. Pt Condition on Discharge: Stable Discharge Disposition: Disch w/ Home Health Serv Discharge Time: > 30 minutes Discharge Instructions DIET: Follow Instructions for: Heart Healthy Diet, Diabetic Diet, Renal Failure Diet Activities you can perform: Regular-No Restrictions Follow up Referrals: Cardiology - 1 Week Gastroenterology - 1 Week Nephrology - 2-3 Days Neurology - 2 Weeks with Sourav Wilson MD Oncology - 1 Week PCP Follow-up - 3-5 Days New Orders: CBC WITH DIFF - 2-3 Days New Medications: Clonidine (Clonidine) 0.2 Mg Tab 0.2 MG PO BID Blood Pressure Management #60 Ref 0 TAB Pantoprazole (Protonix) 40 Mg Tab 40 MG PO DAILY Reflux #30 Ref 0 TAB Walker with Front Wheels (Walker with Front Wheels) 1 Mis Mis 1 EA .ROUTE DIRECTED #1 Ref 0 EA Nifedipine ER 24 HR (Nifedipine ER 24 HR) 60 Mg Tab 60 MG PO BID Blood Pressure Management #60 TAB Changed Medications: Hydralazine (Hydralazine) 50 Mg Tab 75 MG PO BID Take with a meal Blood Pressure Management #60 Ref 0 TAB (Changed from: 50 MG) Continued Medications: Amlodipine (Amlodipine) 10 Mg Tab 10 MG PO DAILY Blood Pressure Management #[address] Ref [address] (Aspirin Adult Low Strength) 81 Mg Tabdr 81 MG PO DAILY antiplatelet TAB Carvedilol (Coreg) 6.25 Mg Tab 6.25 MG PO Q12HR hypertension Days 30 Ref 0 TAB Cyanocobalamin (Vitamin B-12) 1,000 Mcg Tab 1000 MCG PO DAILY Nutritional Supplement #1 Ref 0 BOTTLE Glyburide (Glyburide) 5 Mg Tab 5 MG PO DAILY Take with meals at the same time each day Blood Sugar Management # 30 Ref 0 TAB Hydrocodone-Acetaminophen (Lortab) 5-325 Mg Tab 1 TAB PO Q6H PRN PAIN #10 Ref 0 TAB Metoprolol Succinate ER 24 HR (Metoprolol Succinate ER 24 HR) 100 Mg Tab 100 MG PO HS #30 Ref 0 TAB Sevelamer Carbonate (Renvela) 800 Mg Tab 800 MG PO TID Take with meals Control phosphorous levels #90 Ref 0 TAB Annabella Glaser MD May 30, 2016 08:54
--- NOTE | 2016-05-30 08:59 | HHI.FF ---
Face to Face Verification Diagnosis: (1) Pulmonary edema (2) Noncompliance w/medication treatment due to intermit use ofmedication (3) Hypertensive emergency (4) Melena (5) Diabetes mellitus (6) ESRD (end stage renal disease) (7) Thrombosis (8) Chronic renal failure (9) Hypertension (10) Non-compliance (11) Elevated troponin (12) Severe anemia Physical Therapy Order: Evaluate and Treat Home Health Nursing Order: Medical education Signs/symptoms of disease process Diabetic education Medication education-adverse effect Nursing assessment with vital signs I have seen patient Ryanne Patel on 05/30/16. My clinical findings support the need for the requested home health care services because: Ltd mobility - disease progression Med compliance is questionable I certify that my clinical findings support that this patient is homebound because: Post-op weakness Annabella Glaser MD May 30, 2016 08:58
[2016-05-30] MEDS ORDERED: PROT40TA PO (09:16)
[2016-05-30] MEDS: PANTOPRAZOLE SOD 40 MG DELAYED RELEASE TAB PO SCH (09:53)
[2016-05-30 10:16] LABS: AUTOMATED NEUTROPHIL # 5.8 TH/MM3 (1.8-7.7); BASOPHIL # 0.1 TH/MM3 (0-0.2); BASOPHIL % 0.7 % (0.0-2.0); EOSINOPHIL # 0.5 TH/MM3 (0-0.4); EOSINOPHIL % 6.3 % (0.0-4.0); HEMATOCRIT 24.6 % (35.0-46.0); HEMO FLAGS DIFF FINAL; LYMPH % 9.7 % (9.0-44.0); LYMPHOCYTE # 0.7 TH/MM3 (1.0-4.8); MEAN CELL VOLUME 89.3 FL (80.0-100.0); MEAN CORPUSCULAR HEMOGLOBIN 29.9 PG (27.0-34.0); MEAN CORPUSCULAR HGB CONC 33.5 % (32.0-36.0); NEUT % 76.3 % (16.0-70.0); PLATELET COUNT 209 TH/MM3 (150-450); RED BLOOD COUNT 2.75 MIL/MM3 (4.00-5.30); RED CELL DISTRIBUTION WIDTH 18.4 % (11.6-17.2); WHITE BLOOD COUNT 7.6 TH/MM3 (4.0-11.0)
[2016-05-30] MEDS: GELATIN 12 MM/7 MM FOAM TOP PRN (10:25)
[2016-05-30] MEDS ORDERED: WALKER WHEELS/F1 MIS (14:42)
[2016-05-30] MEDS ORDERED: CLON0.2T PO (14:43)
--- NOTE | 2016-05-30 14:55 | HHI.NPPN ---
Subjective History of Present Illness The patient is a 56 yo [place] female who is known to our services for ESRD on HD. She was at our outpatient dialysis facility for her usual treatment this AM when it was noted that she was becoming mentally alerted. She made it through 2h & 45 mins of her 4h and 30 min treatment time. Her HD was stopped and she was evac'd to this facility for further evaluation. Laboratory findings show a Hgb of 4.3. NG tube was placed that has been clear for any coffee ground appearing output. FOBT positive. She remains mentally altered so history is not clear regarding any vomiting coffee grounds, abdominal pain, or black stools at home. Not certain if she was utilizing any NSAID medications. Receives Epogen 15,000U once weekly as outpatient and received 6.25mg of Ferrelcit QOW in the unit. Interval History Patient apparently refused endoscopy/colonoscopy verbally. Contradicted herself today saying that she did agree however she has been declared competent by psychiatry. Does have a history of noncompliance long-standing making medical management quite difficult.. Review of Systems General General Remarks No verbal complaints. Respiratory Lungs: SOB Objective Data Data 05/29/16 05/30/16 19:00 07:00 Intake Total 81 ml 1181 ml Balance 81 ml 1181 ml Intake Oral 1050 ml IV Total 81 ml 131 ml # Voids 1 2 # Bowel Movements 1 Vital Signs Date Time Temp Pulse Resp B/P Pulse Ox O2 Delivery O2 Flow Rate FiO2 05/30/16 14:00 65 05/30/16 12:00 98.2 56 15 187/86 97 05/30/16 12:00 56 05/30/16 10:00 60 05/30/16 08:24 96 Nasal Cannula 2.00 05/30/16 08:00 87 05/30/16 08:00 97.7 62 11 181/84 97 05/30/16 06:00 58 05/30/16 04:00 65 05/30/16 04:00 98.1 65 15 180/82 94 05/30/16 02:00 67 05/30/16 00:00 98.0 68 14 188/89 97 05/30/16 00:00 68 05/29/16 22:00 65 05/29/16 20:00 61 05/29/16 20:00 98.3 60 14 210/89 97 05/29/16 19:53 97 Nasal Cannula 2.00 05/29/16 18:00 62 05/29/16 16:00 62 05/29/16 16:00 97.5 62 13 205/96 99 -: 05/30/16 0956 05/29/16 0405 Physical Exam General Appearance: No Acute Distress Neck Neck Exam: Neck Supple, Trachea Midline Pulmonary Resp Exam: Breath Sounds Equal, No Distress, Diminished Breath Sounds Cardiology CV Exam: Regular, Normal Sinus Rhythm Gastrointestinal/Abdomen GI Exam: Soft, Non-Tender Integumentary Skin Exam: Clear, Warm Extremeties Extremities Exam: Trace Edema Neurologic Neuro Exam: Alert, Awake Psychiatric Psych Exam: Appropriate Responses Assessment/Plan Discussed Condition With: Patient Problem List: (1) ESRD (end stage renal disease) Plan: Next hemodialysis tomorrow. Patient clear Medications should be adjusted for the patient's ESRD. (2) Severe anemia Plan: w/u for bleed underway (3) Altered mental status Plan: Patient appears to be at baseline. (4) Diabetes mellitus Plan: Mgmt as per primary (5) Hypertension Plan: Blood pressure is still elevated despite the increase in Procardia yesterday. Will add losartan 50 mg daily to current regimen. It may be a volume component of the patient's elevated blood pressure. We'll plan for dialysis tomorrow as per her regular schedule with additional fluid removal which may aid in improving her blood pressure. (6) Non-compliance Plan: Continues to be a very difficult case. Chronic non-compliance as outpatient regarding her dietary restrictions as well as medication adherence. She was initially refusing w/u, but she has slowly been coming around and completing after much coercing. Her long-term prognosis is poor given her non-compliance. Problem Qualifiers (1) Altered mental status: Qualified Code: R41.0 - Delirium Jillian Rubio MD May 30, 2016 14:55
[2016-05-30] MEDS: cloNIDine HCL 0.2 MG TAB PO SCH ×2 (14:57→21:20)
[2016-05-30] MEDS: LOSARTAN 50 MG TAB PO SCH (14:57)
--- NOTE | 2016-05-30 17:49 | HHI.GIFU ---
Subjective Remarks Resting in bed. States she is not having any nausea/vomiting/abdominal pain/or bleeding. She is refusing to have EGD/Colonoscopy. (Renu Bennett ) Objective Vitals I&O Vital Signs Date Time Temp Pulse Resp B/P Pulse Ox O2 Delivery O2 Flow Rate FiO2 05/30/16 16:00 97.9 66 18 214/93 95 05/30/16 16:00 66 05/30/16 14:00 65 05/30/16 12:00 98.2 56 15 187/86 97 05/30/16 12:00 56 05/30/16 10:00 60 05/30/16 08:24 96 Nasal Cannula 2.00 05/30/16 08:00 87 05/30/16 08:00 97.7 62 11 181/84 97 05/30/16 06:00 58 05/30/16 04:00 65 05/30/16 04:00 98.1 65 15 180/82 94 05/30/16 02:00 67 05/30/16 00:00 98.0 68 14 188/89 97 05/30/16 00:00 68 05/29/16 22:00 65 05/29/16 20:00 61 05/29/16 20:00 98.3 60 14 210/89 97 05/29/16 19:53 97 Nasal Cannula 2.00 05/29/16 18:00 62 I/O 05/29/16 05/29/16 05/29/16 05/30/16 05/30/16 05/30/16 07:00 15:00 23:00 07:00 15:00 23:00 Intake Total 1577 ml 81 ml 512 ml 669 ml 494 ml Output Total 3200 ml Balance 1577 ml 81 ml 512 ml 669 ml -2706 ml Intake Oral 1500 ml 450 ml 600 ml 444 ml IV Total 77 ml 81 ml 62 ml 69 ml 50 ml Output Urine Total 0 ml Stool Total 0 ml Hemodialysis 3200 ml # Voids 1 1 1 0 # Bowel Movements 2 1 0 Laboratory Laboratory Tests Test 05/30/16 09:56 White Blood Count 7.6 Red Blood Count 2.75 Hemoglobin 8.2 Hematocrit 24.6 Mean Corpuscular Volume 89.3 Mean Corpuscular Hemoglobin 29.9 Mean Corpuscular Hemoglobin 33.5 Concent Red Cell Distribution Width 18.4 Platelet Count 209 Mean Platelet Volume 8.3 Neutrophils (%) (Auto) 76.3 Lymphocytes (%) (Auto) 9.7 Monocytes (%) (Auto) 7.0 Eosinophils (%) (Auto) 6.3 Basophils (%) (Auto) 0.7 Neutrophils # (Auto) 5.8 Lymphocytes # (Auto) 0.7 Monocytes # (Auto) 0.5 Eosinophils # (Auto) 0.5 Basophils # (Auto) 0.1 CBC Comment DIFF FINAL Differential Comment Imaging Last Impressions Upper Extremity Ultrasound 05/27/16 0000 Signed Impressions: Service Date/Time: Friday, May 27, 2016 15:50 - CONCLUSION: Positive for deep venous thrombosis in the distal basilic vein. Navneet Valentino MD Carotid Artery Ultrasound 05/26/16 0000 Signed Impressions: Service Date/Time: Thursday, May 26, 2016 18:43 - CONCLUSION: No evidence for hemodynamically significant stenosis. 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 Other edematous process is not entirely excluded. Remington Restrepo MD Head CT 05/24/16 1032 Signed Impressions: Service Date/Time: Tuesday, May 24, 2016 13:55 - CONCLUSION: Area of decreased density high in the left parieto-occipital region. MRI may be helpful. Art Palacios MD FACR Chest X-Ray 05/24/16 1032 Signed Impressions: Service Date/Time: Tuesday, May 24, 2016 10:36 - CONCLUSION: Compensated cardiomegaly otherwise negative Art Palacios MD FACR Physical Exam HEENT: Normocephalic; atraumatic CHEST: CTA CARDIAC: RRR with no murmur gallop or rubs. ABDOMEN: Soft obese, nontender; no hepatosplenomegaly; bowel sounds are present x 4 quadrants EXTREMITIES: No clubbing, cyanosis, or edema. SKIN: Normal; no rash; no jaundice. FIELD TRAINING AGENT: No focal deficits; A&O x3. (Renu Bennett) Assessment and Plan Plan ASSESSMENT: -Severe anemia, heme positive stools. HH on admission 4.3/13.4. S/P 6 U PRBC transfusion. No active bleeding. 8.2/24.6. She is now refusing to have EGD/Colonoscopy again. - DVT distal basilic vein. GI reconsulted for egd/colonoscopy prior to starting anticoagulation, but patient now refusing again. - Altered mental status, IMPROVED. - End Stage Renal Disease on hemodialysis, renal diet - Elevated Troponin, Cardiology following - HTN, DM per primary. PLAN: - MARIA LUISA - Monitor HH - Transfuse as necessary - Pt refusing EGD/Colonoscopy again - Patient was seen and examined by Dr. Harding and myself and this note is written on his behalf. (Renu Bennett) Physician Comments Seen and examined with LUCIANO, refusing gi procedures again. NO active bleeding, will sign off, reconsult as needed. Thank you (Dustin Harding MD) Renu Bennett May 30, 2016 17:49 Dustin Harding MD May 30, 2016 19:34
--- NOTE | 2016-05-30 22:01 | PD.ONC.PN ---
Subjective Subjective Remarks seen earlier in the day refused EGD and colonoscopy no apparent bleeding Objective Data Date Time Temp Pulse Resp B/P Pulse Ox O2 Delivery O2 Flow Rate FiO2 05/30/16 18:00 62 05/30/16 16:00 97.9 66 18 214/93 95 05/30/16 16:00 66 05/30/16 14:00 65 05/30/16 12:00 98.2 56 15 187/86 97 05/30/16 12:00 56 05/30/16 10:00 60 05/30/16 08:24 96 Nasal Cannula 2.00 05/30/16 08:00 87 05/30/16 08:00 97.7 62 11 181/84 97 05/30/16 06:00 58 05/30/16 04:00 65 05/30/16 04:00 98.1 65 15 180/82 94 05/30/16 02:00 67 05/30/16 00:00 98.0 68 14 188/89 97 05/30/16 00:00 68 05/29/16 22:00 65 05/30/16 05/30/16 05/30/16 07:00 15:00 23:00 Intake Total 669 ml 494 ml Output Total 3200 ml Balance 669 ml -2706 ml Result Diagram: 05/30/16 0956 05/29/16 0405 Laboratory Results Laboratory Tests Test 05/30/16 09:56 White Blood Count 7.6 TH/MM3 Red Blood Count 2.75 MIL/MM3 Hemoglobin 8.2 GM/DL Hematocrit 24.6 % Mean Corpuscular Volume 89.3 FL Mean Corpuscular Hemoglobin 29.9 PG Mean Corpuscular Hemoglobin 33.5 % Concent Red Cell Distribution Width 18.4 % Platelet Count 209 TH/MM3 Mean Platelet Volume 8.3 FL Neutrophils (%) (Auto) 76.3 % Lymphocytes (%) (Auto) 9.7 % Monocytes (%) (Auto) 7.0 % Eosinophils (%) (Auto) 6.3 % Basophils (%) (Auto) 0.7 % Neutrophils # (Auto) 5.8 TH/MM3 Lymphocytes # (Auto) 0.7 TH/MM3 Monocytes # (Auto) 0.5 TH/MM3 Eosinophils # (Auto) 0.5 TH/MM3 Basophils # (Auto) 0.1 TH/MM3 CBC Comment DIFF FINAL Differential Comment Administered Medications Medications (Trade) Dose Ordered Sig/Shaun Route PRN Reason Start Time Stop Time Status Last Admin Dose Admin Miscellaneous Information 1 [id number] XX 05/24/16 12:45 05/24/16 12:45 Chlorhexidine Gluconate (Chlorhexidine 2% Cloth) Taper DAILY@04 TOP 05/25/16 04:00 05/21/17 03:59 05/29/16 04:00 Carvedilol (Coreg) 6.25 mg Q12HR PO 05/24/16 14:45 05/30/16 20:33 Insulin Human Regular 1 1 Q6H SQ 05/25/16 09:30 05/30/16 20:33 Sodium Chloride (NS 1000 ml Inj) 1,000 ml @ 0 mls/hr Q0M PRN IV For Prime & Rinse Back 05/26/16 11:48 05/30/16 10:26 Clonidine (Catapres) 0.1 mg UNSCH PRN PO for BP > 180/100 X 2 readings 05/26/16 12:00 05/30/16 16:08 Gelatin (Gelfoam 12 Mm/7 Mm Top) 1 foam UNSCH PRN TOP SEE LABEL COMMENTS 05/26/16 12:00 05/30/16 10:25 Acetaminophen/ Hydrocodone Bitart ([place] 5-325 Mg) 1 tab Q6H PRN PO PAIN 3-6 05/27/16 14:15 05/30/16 18:19 Lorazepam (Ativan) 0.5 mg Q8H PRN PO ANXIETY 05/27/16 18:45 05/29/16 20:11 Hydralazine HCl (Apresoline) 75 mg Q8HR PO 05/29/16 06:00 05/30/16 21:20 Nifedipine (Procardia Xl) 60 mg BID PO 05/29/16 21:00 05/30/16 20:33 Hydralazine HCl (Apresoline Inj) 20 mg Q6H PRN IV PUSH SYS BP GREATER THAN 160 MMHG 05/30/16 09:00 05/30/16 18:19 Pantoprazole Sodium (Protonix) 40 mg DAILY PO 05/30/16 09:30 05/30/16 09:53 Clonidine (Catapres) 0.2 mg Q8HR PO 05/30/16 15:00 05/30/16 21:20 Losartan Potassium (Cozaar) 50 mg DAILY PO 05/30/16 15:00 05/30/16 14:57 Oxycodone HCl (Roxicodone) 10 mg Q8H PRN PO pain 7-10 05/30/16 20:15 05/30/16 21:21 Objective Remarks GENERAL: nad SKIN: Warm and dry. NECK: Supple, trachea midline. No JVD or lymphadenopathy. LYMPHATIC: No adenopathy. CARDIOVASCULAR: Regular rate and rhythm without murmurs. RESPIRATORY: Breath sounds equal bilaterally. No accessory muscle use. GASTROINTESTINAL: Abdomen soft, non-tender, nondistended. EXTREMITIES: No cyanosis, or edema. Assessment/Plan Problem List: (1) Hypertensive emergency Status: Acute (2) ESRD (end stage renal disease) Status: Acute (3) Severe anemia Status: Acute (4) Non-compliance Status: Acute (5) Thrombosis Status: Acute Assessment 56-year-old female with a history of end-stage renal disease, diabetes and hypertension who was admitted to the hospital with altered mental status and respiratory distress and she was found to be severely anemic and has GI bleed. 1. Thrombosis of the right upper extremity. - Hold anticoagulation in the setting of GI bleed and severe anemia - high risk for re-bleeding due to multiple risk factors 2. GI bleed. refused GI w/u 3. Acute Anemia-- Iron studies showed anemia of chronic disease with a ferritin of 1824. transfuse to keep her hemoglobin greater than 7.5. B12 normal. Folate pending 4. CKD on dialysis Dwain Marroquin MD May 30, 2016 22:01
[2016-05-31] VITALS (7 sets, daily range): BP systolic 156–169; BP diastolic 70–75; PULSE 60–66; RESP 13–21; TEMP 98.7–99.2; O2SAT 94–95
[2016-05-31] MEDS: INSULIN NovoLIN REGULAR SUPPLEMENTAL SCALE SQ SCH ×2 (03:30→09:16)
[2016-05-31] MEDS: CHLORHEXIDINE GLUCONATE 2 % 1 PACK (2 CLOTHS) TOP SCH (03:37)
[2016-05-31] MEDS: ACETAMINOPHEN/HYDROcodone 325 MG/5 MG TAB PO PRN (03:38)
[2016-05-31] MEDS: hydrALAZINE HCL 50 MG TAB PO SCH ×2 (06:19→14:28)
[2016-05-31] MEDS: cloNIDine HCL 0.2 MG TAB PO SCH ×2 (06:19→14:28)
[2016-05-31] MEDS: PANTOPRAZOLE SOD 40 MG DELAYED RELEASE TAB PO SCH (09:14)
[2016-05-31] MEDS: LOSARTAN 50 MG TAB PO SCH (09:14)
[2016-05-31] MEDS: CARVEDILOL 6.25 MG TAB PO SCH (09:14)
[2016-05-31] MEDS: NIFEdipine 60 MG SUSTAINED RELEASE TAB PO SCH (09:14)
[2016-05-31] MEDS: GELATIN 12 MM/7 MM FOAM TOP PRN (10:41)
--- NOTE | 2016-05-31 15:57 | HHI.PR ---
Subjective Remarks In the chair. Denies chest pain, n/v/d/c. BP is better controlled. Says she has less pain in her arm. Says she is not bleeding. Wants to go home. Objective Vitals Vital Signs Date Time Temp Pulse Resp B/P Pulse Ox O2 Delivery O2 Flow Rate FiO2 05/31/16 10:00 65 05/31/16 08:00 60 05/31/16 07:38 95 Nasal Cannula 2.00 05/31/16 06:00 64 05/31/16 04:00 65 05/31/16 04:00 98.7 65 21 169/75 95 05/31/16 02:00 66 05/31/16 00:00 99.2 62 13 156/70 94 05/31/16 00:00 62 05/30/16 22:27 94 Nasal Cannula 2.50 05/30/16 22:00 68 05/30/16 20:00 68 05/30/16 20:00 98.7 68 16 181/84 95 05/30/16 18:00 62 05/30/16 16:00 97.9 66 18 214/93 95 05/30/16 16:00 66 I/O 05/30/16 05/30/16 05/30/16 05/31/16 05/31/16 05/31/16 07:00 15:00 23:00 07:00 15:00 23:00 Intake Total 669 ml 494 ml 240 ml 480 ml Output Total 3200 ml 3500 ml Balance 669 ml -2706 ml 240 ml 480 ml -3500 ml Intake Oral 600 ml 444 ml 240 ml 480 ml IV Total 69 ml 50 ml 0 ml 0 ml Output Urine Total 0 ml Stool Total 0 ml Hemodialysis 3200 ml 3500 ml # Voids 1 0 0 0 # Bowel Movements 0 0 0 Result Diagram: 05/30/16 0956 05/29/16 0405 Imaging Last Impressions Upper Extremity Ultrasound 05/27/16 0000 Signed Impressions: Service Date/Time: Friday, May 27, 2016 15:50 - CONCLUSION: Positive for deep venous thrombosis in the distal basilic vein. Navneet Valentino MD Carotid Artery Ultrasound 05/26/16 0000 Signed Impressions: Service Date/Time: Thursday, May 26, 2016 18:43 - CONCLUSION: No evidence for hemodynamically significant stenosis. K. 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 Other edematous process is not entirely excluded. Remington Restrepo MD Head CT 05/24/16 1032 Signed Impressions: Service Date/Time: Tuesday, May 24, 2016 13:55 - CONCLUSION: Area of decreased density high in the left parieto-occipital region. MRI may be helpful. Art Palacios MD FACR Chest X-Ray 05/24/16 1032 Signed Impressions: Service Date/Time: Tuesday, May 24, 2016 10:36 - CONCLUSION: Compensated cardiomegaly otherwise negative Art Palacios MD FACR Objective Remarks GENERAL: 56 yo F with BMI of 38, well nourished, well developed, in bed, appears anxious. SKIN: Warm and dry. HEAD: Atraumatic. Normocephalic. EYES: Pupils equal and round. No scleral icterus. No injection or drainage. ENT: No nasal bleeding or discharge. Mucous membranes pink and moist. NECK: Trachea midline. No JVD. CARDIOVASCULAR: Regular rate and rhythm. RESPIRATORY: No accessory muscle use. Clear to auscultation. Breath sounds equal bilaterally. GASTROINTESTINAL: Abdomen soft, mild tenderness, nondistended. Hepatic and splenic margins not palpable. MUSCULOSKELETAL: Right hand with edema and pain on palpation at the wrist. Left arm with fistula in place, present bruit. No obvious deformities. NEUROLOGICAL: Awake and alert. No obvious cranial nerve deficits. Motor grossly within normal limits. Five out of 5 muscle strength in the arms and legs. Normal speech. PSYCHIATRIC: Appropriate mood and affect; insight and judgment normal. Procedures none , refused all procedures A/P Assessment and Plan Altered mental status. Resolved -CT brain: Area of decreased density high in the left parieto-occipital region. 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 - at the moment ASA and anticoagulation contraindicated due to suspicion of GI bleed ( presented with hgb of 4.3) -ECHO reviewed with EF of 55-60%. will get carotid us and lipid panel. -consult Neurologist, Dr Wilson cleared patient for DC to follow up as OP with him in 2 weeks Late subacute or older watershed infarction -see management as above. Severe anemia. HGB of 4.3 on admission. -on Protonix drip. GI is following, patient is refusing EGD/colonoscopy, but agreed today. -Monitor CBC s/p transfusion 3u PRBC, repeat Hgb 7.4 , h/h stable, monitor and transfuse as need -continue to monitor H/H. H/H has been stable so far -agrees for GI work up, plan for scope 05/29. Patient however refused again after taking prep. She has going back and forth with having colonoscopy/EGD during this admission. Palliative care was also following the patient. Seen by psych patient is competent. End-stage renal disease -receiving dialysis. Right arm basilic vein DVT. Hem onc advices compresses and hold on anticoagulation at this time, until GI clears patient. Note patient has peripheral line in legs. She has right arm DVT , she has left arm fistula. Patient refusing any GI work UP. Hypertension. uncontrolled. -patient has hx of difficulty controlling HTN. -increase hydralazine, monitor Hyperglycemia with underlying history of diabetes mellitus -on SSI. Elevated troponin -likely stress mediated from GI bleed. -Wharf Tally Clerk was consulted and no further work up indicated at the moment. Patient need GI work up per cardiology Noncompliance -once patient more alert able to educate better on compliance. Patient counselled extensively. GI prophylaxis on Protonix drip and DVT prophylaxis with SCDs. -Chemical anticoagulation prophylaxis contraindicated in the setting of severe anemia on arrival Discharge Planning Refusing labs/tests. Consult palliative care for goal of care. Psych also consulted and patient is competent. Patient refusing further work up/labs she wants to go home. H/H has been stable. No sign of acute bleeding. Plan to discharge the patient home after HD today. Patioent is alert and oriented x4. I explained to the patient multiple times the risk of , stroke, severe GI bleed, cardiac events leading to . Patient expressed understanding and says she is willing to take the risk. Also nurse Zahraa Amanda RN present at bedside. Patient was adviced to follow up as OP with PCP and all consultants including GI , hem/onc, neurology, cardiology, nephrology. Repeat CBC in 2-3 days. Adviced compliance with follow up and with meds. Annabella Glaser MD May 31, 2016 15:57
== END 2016-05-31 15:10 | disposition home or self-care (01) | DRG 811 ==
LOC: NEPC 10:27 → NEDA 12:16 → HIMN 14:05
PROVIDERS: ADMIT Hospitalist; ATTEND Hospitalist
PROC: 30233N1 Transfusion of Nonautologous Red Blood Cells into Peripheral Vein, Percutaneous Approach (ICD-10-PCS; principal; 2016-05-24)
PROC: 0D9670Z Drainage of Stomach with Drainage Device, Via Natural or Artificial Opening (ICD-10-PCS; 2016-05-24)
PROC: 30233N1 Transfusion of Nonautologous Red Blood Cells into Peripheral Vein, Percutaneous Approach (ICD-10-PCS; 2016-05-25)
PROC: 5A1D60Z (ICD-10-PCS; 2016-05-26)
DX: D64.9 Anemia, unspecified (principal); N18.6 End stage renal disease; J81.1 Chronic pulmonary edema; I82.621 Acute embolism and thrombosis of deep veins of right upper extremity; I12.0 Hypertensive chronic kidney disease with stage 5 chronic kidney disease or end stage renal disease; K92.2 Gastrointestinal hemorrhage, unspecified; I16.1 Hypertensive emergency; E11.22 Type 2 diabetes mellitus with diabetic chronic kidney disease; I16.0 Hypertensive urgency; R74.8 Abnormal levels of other serum enzymes; Z99.2 Dependence on renal dialysis; Z91.19 Patient's noncompliance with other medical treatment and regimen
CPT/HCPCS: 36430; 36591; 36600; 70450; 70551; 71010; 76937; 80048; 80053; 80061; 80069; 80307; 82140; 82550; 82607; 82728; 82747; 82805; 82948; 83540; 83550; 84443; 84484; 85007; 85014; 85018; 85025; 85027; 85610; 85730; 86850; 86900; 86901; 86920; 87641; 90935; 93005; 93306; 93880; 93971; 94640; 94664; 96374; C9113; J0360; J1170; J1940; J2060; J2270; J7030; J7050; P9016

== ENCOUNTER 2016-06-16 12:45 | Inpatient (IN) | payer MEDICARE, OTHER ==
[2016-06-16] VITALS (11 sets, daily range): BP systolic 186–264; BP diastolic 86–126; PULSE 66–98; RESP 15–23; TEMP 98.1–99; O2SAT 95–100
[~2016-06-16] VITALS: Ht 160 cm; Wt 95.5 kg
[~2016-06-16 12:45] MED LIST changes: +ASPI1TAB91 PO; -Aspirin Chew CHEW; +CLON0.2T PO; -LIPI80TA PO; +METO100T9 PO; +NIFE60TA8 PO; +PROT40TA PO; +VITA10002 PO; +WALKER WHEELS/F1 MIS
[2016-06-16] MEDS ORDERED: SODIUM CHLORIDE 0.9% FLUSH 10 ML FLUSH IV FLUSH PRN ×2 (14:15→17:30)
[2016-06-16] MEDS ORDERED: LABETALOL HCL 100 MG/20 ML VIAL IV PUSH ONE (14:15)
[2016-06-16] MEDS ORDERED: hydrALAZINE HCL 20 MG/ML VIAL IV PUSH ONE (14:15)
[2016-06-16 15:13] LABS: AUTOMATED NEUTROPHIL # 5.9 TH/MM3 (1.8-7.7); BASOPHIL # 0.1 TH/MM3 (0-0.2); BASOPHIL % 1.2 % (0.0-2.0); EOSINOPHIL # 0.5 TH/MM3 (0-0.4); EOSINOPHIL % 6.5 % (0.0-4.0); MEAN CELL VOLUME 91.1 FL (80.0-100.0); MEAN CORPUSCULAR HEMOGLOBIN 30.4 PG (27.0-34.0); MEAN CORPUSCULAR HGB CONC 33.3 % (32.0-36.0); MONO % 6.3 % (0.0-8.0); PLATELET COUNT 238 TH/MM3 (150-450); RED BLOOD COUNT 2.21 MIL/MM3 (4.00-5.30); RED CELL DISTRIBUTION WIDTH 17.8 % (11.6-17.2); WHITE BLOOD COUNT 8.1 TH/MM3 (4.0-11.0)
[2016-06-16 15:19] LABS: HEMATOCRIT 20.1 % (35.0-46.0); HEMO FLAGS DIFF FINAL
[2016-06-16 15:38] LABS: BICARBONATE 25.6 MEQ/L (21.0-32.0); POTASSIUM 4.2 MEQ/L (3.5-5.1)
--- NOTE | 2016-06-16 16:39 | HHI.HP ---
HPI Service Family Medicine Primary Care Physician No Primary Care Physician Admission Diagnosis anemia, ESRD on HD, accelerated HTN Diagnoses: International Travel<30 Days: No Contact w/Intl Traveler<30days: No Known Affected Area: No History of Present Illness 56-year-old female recently hospitalized from 05/24 through 05/30 for severe anemia (hemoglobin of 4.3 on admission). During that admission, patient refused EGD/ colonoscopy. She presented today because her was ill. She asked for her blood pressure to be checked and it was noticed to be systolic blood pressure around 250. The patient states she did not take her blood pressure medications yet today because she normally takes them at night. The patient is a very poor historian and does not know the medications she should be on. The patient states she has no other problems. However, on direct questioning she complains of 7 out of 10 midsternal nonradiating constant chest pain since last night. The patient does get hemodialysis from her condenser operator Dr. Rubio on Thursday. Given malodorous physical exam, I directly questioned the patient about her home conditions. She lives in a home in [place] with her . She adamantly denies any abuse. She states she showers daily. (Yash Masters MD R2 ) Review of Systems ROS Limitations: Poor Historian Constitutional: DENIES: Fever, Chills Eyes: DENIES: Blurred vision, Diplopia Ears, nose, mouth, throat: DENIES: Tinnitus, Hearing loss Respiratory: DENIES: Apneas, Cough Cardiovascular: COMPLAINS OF: Chest pain, DENIES: Syncope Gastrointestinal: DENIES: Abdominal pain, Black stools, Bloody stools, Constipation, Diarrhea, Nausea, Vomiting Neurologic: DENIES: Abnormal gait, Headache Psychiatric: DENIES: Anxiety, Confusion (Yash Masters MD R2) Past Family Social History Past Medical History End-stage renal disease on hemodialysis (condenser operator is Dr. Rubio) Hypertension Type 2 diabetes Past Surgical History Left forearm fistula Reported Medications Reported Meds & Active Scripts Active Clonidine (Clonidine HCl) 0.2 Mg Tab 0.2 Mg PO BID Walker with Front Wheels (Device) 1 Mis Mis 1 Ea .ROUTE DIRECTED Protonix (Pantoprazole Sodium) 40 Mg Tab 40 Mg PO DAILY Nifedipine ER 24 HR (Nifedipine) 60 Mg Tab 60 Mg PO BID Hydralazine (Hydralazine HCl) 50 Mg Tab 75 Mg PO BID Take with a meal Amlodipine (Amlodipine Besylate) 10 Mg Tab 10 Mg PO DAILY Lortab (Hydrocodone-Acetaminophen) 5-325 Mg Tab 1 Tab PO Q6H PRN Coreg (Carvedilol) 6.25 Mg Tab 6.25 Mg PO Q12HR 30 Days Reported Aspirin Adult Low Strength (Aspirin) 81 Mg Tabdr 81 Mg PO DAILY Vitamin B-12 (Cyanocobalamin) 1,000 Mcg Tab 1,000 Mcg PO DAILY Metoprolol Succinate ER 24 HR (Metoprolol Succinate) 100 Mg Tab 100 Mg PO HS Glyburide 5 Mg Tab 5 Mg PO DAILY Take with meals at the same time each day Renvela (Sevelamer Carbonate) 800 Mg Tab 800 Mg PO TID Take with meals (Yash Masters MD R2) Allergies: Coded Allergies: No Known Allergies (Unverified , 04/08/16) Active Ordered Medications Active Medications Hydralazine HCl (Apresoline Inj) 10 mg ONCE ONCE IV PUSH Last administered on 14:51; Admin Dose 10 MG; Start 06/16/16 at 14:15; Stop 06/16/16 at 14: 16; Status DC Labetalol HCl (Trandate Inj) 10 mg ONCE ONCE IV PUSH Last administered on 14:52; Admin Dose 10 MG; Start 06/16/16 at 14:15; Stop 06/16/16 at 14:16; Status DC Sodium Chloride (NS Flush) 2 ml UNSCH PRN IV FLUSH Last administered on 14:52; Admin Dose 2 ML; Start 06/16/16 at 14:15 Family History Unknown. Poor historian. Social History Patient is originally from [place]. She has been to her , Bandar, for approximately 10 years. Bandar has 1 daughter, who is living in [place] and expecting a child. Ryanne has no children. Ryanne and her moved to [place] approximately one year ago because her wanted to get away from the cold. She states she lives in a house with her and dogs. No smoking. No alcohol. No illicit drugs (Yash Masters MD R2) Physical Exam Vital Signs Vital Signs Date Time Temp Pulse Resp B/P Pulse Ox O2 Delivery O2 Flow Rate FiO2 06/16/16 15:43 188/95 06/16/16 15:00 66 15 231/111 98 Room Air 06/16/16 14:40 22 96 Room Air 06/16/16 14:00 80 20 264/126 99 Room Air 06/16/16 13:10 98.1 79 22 245/112 98 Room Air 06/16/16 13:00 80 22 99 Room Air 06/16/16 12:54 231/116 Physical Exam GENERAL: This is an obese, disheveled-appearing female with noticeable odor SKIN: No rashes, ecchymoses or lesions. Cool and dry. HEAD: Atraumatic. Normocephalic. No temporal or scalp tenderness. EYES: Pupils equal round and reactive. Extraocular motions intact. No scleral icterus. No injection or drainage. ENT: Nose without bleeding, purulent drainage or septal hematoma. Throat without erythema, tonsillar hypertrophy or exudate. Uvula midline. Airway patent. NECK: Trachea midline. No JVD or lymphadenopathy. Supple, nontender, no meningeal signs. CARDIOVASCULAR: Regular rate and rhythm without murmurs, gallops, or rubs. RESPIRATORY: Clear to auscultation. Breath sounds equal bilaterally. No wheezes , rales, or rhonchi. GASTROINTESTINAL: Abdomen soft, non-tender, nondistended. No hepato-splenomegaly , or palpable masses. No guarding. MUSCULOSKELETAL: Extremities without clubbing, cyanosis, or edema. No joint tenderness, effusion, or edema noted. No calf tenderness. Negative Homans sign bilaterally. NEUROLOGICAL: Awake and alert. Cranial nerves II through XII intact. Motor and sensory grossly within normal limits. Five out of 5 muscle strength in all muscle groups. Normal speech. Laboratory Laboratory Tests Test 06/16/16 14:26 White Blood Count 8.1 Red Blood Count 2.21 Hemoglobin 6.7 Hematocrit 20.1 Mean Corpuscular Volume 91.1 Mean Corpuscular Hemoglobin 30.4 Mean Corpuscular Hemoglobin 33.3 Concent Red Cell Distribution Width 17.8 Platelet Count 238 Mean Platelet Volume 8.6 Neutrophils (%) (Auto) 73.0 Lymphocytes (%) (Auto) 13.0 Monocytes (%) (Auto) 6.3 Eosinophils (%) (Auto) 6.5 Basophils (%) (Auto) 1.2 Neutrophils # (Auto) 5.9 Lymphocytes # (Auto) 1.0 Monocytes # (Auto) 0.5 Eosinophils # (Auto) 0.5 Basophils # (Auto) 0.1 CBC Comment DIFF FINAL Differential Comment Sodium Level 137 Potassium Level 4.2 Chloride Level 100 Carbon Dioxide Level 25.6 Anion Gap 11 Blood Urea Nitrogen 25 Creatinine 6.86 Estimat Glomerular Filtration 6 Rate Random Glucose 125 Calcium Level 9.1 (Yash Masters MD R2) Result Diagram: 06/16/16 1426 06/16/16 1426 Assessment and Plan Assessment and Plan 56-year-old female with past medical history of end-stage renal disease, hypertension, diabetes presents with hypertensive urgency and anemia. She was previously seen earlier this month with a hemoglobin of around 4. At that time she refused workup and was not compliant. Patient will be admitted for blood transfusion, hemodialysis, anemia workup. Code Status Full Discussed Condition With Dr. Simms (Yash Masters MD R2) Attending Attestation THIS CASE WAS DISCUSSED WITH THE RESIDENT PHYSICIANS. I HAVE REVIEWED THE RECORD AND AGREE WITH THE ABOVE NOTE AND PLAN OF CARE WAS DISCUSSED. I HAVE AUTHORIZED THE ORDER FOR ADMISSION TO AN IN-PATIENT STATUS. (Simeon Guevara MD) Problem List: (1) Anemia Status: Acute Plan: Hemoglobin on 05/24 was 4.3; during that admission patient refused workup. She presents with hypertensive urgency and was found incidentally to have anemia with hemoglobin of 6.7 Reconsult GI as the patient may decide to undergo colonoscopy at this time. However, it is unclear as the patient has previously accepted and then declined this procedure Transfuse 1 unit packed red blood cells Trend H&H posttransfusion and in the morning (2) Accelerated hypertension Status: Acute Plan: blood pressure 264/126 on admission. Currently 228/101 after treatment with 10 mg labetalol and 10 mg hydralazine Likely a combination of rebound hypertension as the patient takes clonidine and noncompliance. Plan to decrease map by 25% and approximately 2 hours. With the goal of blood pressure in 1-2 days. Continue home medications that are in the EMR (patient is unaware of her medications): Clonidine 0.2 mg by mouth twice a day, carvedilol 6.25 mg by mouth every 12 hours, hydralazine 75 mg by mouth twice a day, Procardia 60 mg by mouth twice a day, amlodipine 10 mg by mouth daily Carefully follow blood pressure to watch for precipitous decline (3) End stage renal disease on dialysis Status: Acute Plan: Nephrology consulted, Dr. Rubio Hemodialysis Thursday, Thursday, Thursday (4) Non-compliance Status: Acute Plan: Patient is very noncompliant (5) Elevated troponin Status: Acute Plan: Troponin 0.57. Trending down appropriately from previous admission. (6) FEN/PPX Status: Acute Plan: Fluids: Careful with IV fluids with end-stage renal disease Electrolytes: Monitor and replace when necessary Nutrition: Renal diet Prophylaxis: Hold anti-coagulation in setting of anemia; bilateral SCDs (Yash Masters MD R2) Physician Certification 2 Midnight Certification Type: Admission for Inpatient Services Order for Inpatient Services The services are ordered in accordance with Medicare regulations or non- Medicare payer requirements, as applicable. In the case of services not specified as inpatient-only, they are appropriately provided as inpatient services in accordance with the 2-midnight benchmark. Estimated LOS (days): 2 days is the estimated time the patient will need to remain in the hospital, assuming treatment plan goals are met and no additional complications. Post-Hospital Plan: Not yet determined (Yash Masters MD R2) Problem Qualifiers (1) Anemia: Qualified Code: D64.9 - Anemia, unspecified type Yash Masters MD R2 Jun 16, 2016 16:39 Simeon Guevara MD Jun 17, 2016 11:40
[2016-06-16 16:46] LABS: PROTHROMBIN TIME - PATIENT 10.5 SEC (9.8-11.6)
--- NOTE | 2016-06-16 16:57 | PD ---
HPI Chief Complaint: Hypertension Time Seen by Provider: 14:10 Travel History International Travel<30 days: No Contact w/Intl Traveler<30days: No Traveled to known affect area: No History of Present Illness HPI 56-year-old female with history of CAD, ESRD on HD Thursday here with hypertension. Patient brought her significant other to the hospital for gangrenous limb and while she was here wanted to get her blood pressure checked which was notably elevated. Patient is asymptomatic. No chest pain, shortness of breath, palpitations, headache. She dialyzes Thursday but did not dialyze today. Patient dialyzes at [facility] dialysis and does not know her vamp stitcher, home medications, etc. States that her gives her all of these. Very poor historian. [facility] Past Medical History Anemia: Yes Cancer: No Cardiovascular Problems: Yes (HX OF HEART ATTACK, TIA, HYPERTENSION) High Cholesterol: Yes Cerebrovascular Accident: Yes Coronary Artery Disease: Yes Diabetes: Yes (TYPE 2) Patient Takes Glucophage: No Dialysis: Yes Hypertension: Yes Musculoskeletal: No Psychiatric: No Reproductive: No Respiratory: No Renal Failure: Yes Tetanus Vaccination: Unknown Influenza Vaccination: No ?: Not : 1 Miscarriage: 1 Past Surgical History Abdominal Surgery: No Cardiac Surgery: No Ear Surgery: No Endocrine Surgery: No Eye Surgery: No Genitourinary Surgery: No Gynecologic Surgery: No Oral Surgery: No Thoracic Surgery: No Other Surgery: Yes (LT FOREARM FISTULA) Social History Alcohol Use: No Tobacco Use: No Substance Use: No Allergies-Medications (Allergen,Severity, Reaction): Coded Allergies: No Known Allergies (Unverified , 04/08/16) Reported Meds & Prescriptions Reported Meds & Active Scripts Active Clonidine (Clonidine HCl) 0.2 Mg Tab 0.2 Mg PO BID Walker with Front Wheels (Device) 1 Mis Mis 1 Ea .ROUTE DIRECTED Protonix (Pantoprazole Sodium) 40 Mg Tab 40 Mg PO DAILY Nifedipine ER 24 HR (Nifedipine) 60 Mg Tab 60 Mg PO BID Hydralazine (Hydralazine HCl) 50 Mg Tab 75 Mg PO BID Take with a meal Amlodipine (Amlodipine Besylate) 10 Mg Tab 10 Mg PO DAILY Lortab (Hydrocodone-Acetaminophen) 5-325 Mg Tab 1 Tab PO Q6H PRN Coreg (Carvedilol) 6.25 Mg Tab 6.25 Mg PO Q12HR 30 Days Reported Aspirin Adult Low Strength (Aspirin) 81 Mg Tabdr 81 Mg PO DAILY Vitamin B-12 (Cyanocobalamin) 1,000 Mcg Tab 1,000 Mcg PO DAILY Metoprolol Succinate ER 24 HR (Metoprolol Succinate) 100 Mg Tab 100 Mg PO HS Glyburide 5 Mg Tab 5 Mg PO DAILY Take with meals at the same time each day Renvela (Sevelamer Carbonate) 800 Mg Tab 800 Mg PO TID Take with meals Review of Systems ROS Limitations: Poor Historian Except as stated in HPI: all other systems reviewed are Neg Physical Exam Exam Limitations: Poor Historian Narrative GENERAL: Obese female appearing significantly older than stated age in no acute distress SKIN: Focused skin assessment warm/dry. HEAD: Normocephalic. EYES: No scleral icterus. No injection or drainage. ENT: Mucous membranes pink and moist. NECK: Supple CARDIOVASCULAR: Regular rate and rhythm. No murmur appreciated. Hypertensive RESPIRATORY: No accessory muscle use. Clear to auscultation. Breath sounds equal bilaterally. GASTROINTESTINAL: Abdomen soft, non-tender, nondistended. Obese MUSCULOSKELETAL: Left upper extremity AV fistula with palpable thrill NEUROLOGICAL: Awake and alert. Motor grossly within normal limits. Normal speech. PSYCHIATRIC: Appropriate mood and affect; insight and judgment normal. Data Data Last Documented VS Vital Signs Date Time Temp Pulse Resp B/P Pulse Ox O2 Delivery O2 Flow Rate FiO2 06/16/16 16:30 75 15 228/101 98 Room Air 06/16/16 13:10 98.1 Orders Basic Metabolic Panel (Bmp) (06/16/16 14:11) Complete Blood Count With Diff (06/16/16 14:11) Iv Access Insert/Monitor (06/16/16 14:11) Ecg Monitoring (06/16/16 14:11) Oximetry (06/16/16 14:11) Sodium Chloride 0.9% Flush (Ns Flush) (06/16/16 14:15) Electrocardiogram (06/16/16 14:11) Labetalol Inj (Trandate Inj) (06/16/16 14:15) Hydralazine Inj (Apresoline Inj) (06/16/16 14:15) Prothrombin Time / Inr (Pt) (06/16/16 15:22) Act Partial Throm Time (Ptt) (06/16/16 15:22) Type And Screen (06/16/16 15:22) Red Blood Cells (Rbc) (06/16/16 15:22) Blood Product Administration .UPON TRANSFUSION (06/16/16 15:22) Consult Nephrology (06/16/16 ) Admit Order (Ed Use Only) (06/16/16 16:28) Labs Laboratory Tests Test 06/16/16 06/16/16 14:26 16:09 White Blood Count 8.1 TH/MM3 Red Blood Count 2.21 MIL/MM3 Hemoglobin 6.7 GM/DL Hematocrit 20.1 % Mean Corpuscular Volume 91.1 FL Mean Corpuscular Hemoglobin 30.4 PG Mean Corpuscular Hemoglobin 33.3 % Concent Red Cell Distribution Width 17.8 % Platelet Count 238 TH/MM3 Mean Platelet Volume 8.6 FL Neutrophils (%) (Auto) 73.0 % Lymphocytes (%) (Auto) 13.0 % Monocytes (%) (Auto) 6.3 % Eosinophils (%) (Auto) 6.5 % Basophils (%) (Auto) 1.2 % Neutrophils # (Auto) 5.9 TH/MM3 Lymphocytes # (Auto) 1.0 TH/MM3 Monocytes # (Auto) 0.5 TH/MM3 Eosinophils # (Auto) 0.5 TH/MM3 Basophils # (Auto) 0.1 TH/MM3 CBC Comment DIFF FINAL Differential Comment Sodium Level 137 MEQ/L Potassium Level 4.2 MEQ/L Chloride Level 100 MEQ/L Carbon Dioxide Level 25.6 MEQ/L Anion Gap 11 MEQ/L Blood Urea Nitrogen 25 MG/DL Creatinine 6.86 MG/DL Estimat Glomerular Filtration 6 ML/MIN Rate Random Glucose 125 MG/DL Calcium Level 9.1 MG/DL Prothrombin Time 10.5 SEC Prothromb Time International 1.0 RATIO Ratio Activated Partial 20.0 SEC Thromboplast Time MDM Medical Decision Making Medical Screen Exam Complete: Yes Emergency Medical Condition: Yes Medical Record Reviewed: Yes Differential Diagnosis 56-year-old female with history of ESRD on HD, CAD here with complaint of hypertension. Differential includes asymptomatic hypertension, accelerated hypertension, hypertensive emergency, arrhythmia, medication nonadherence. Narrative Course Patient placed on monitor, IV established and blood obtained. A twelve-lead EKG shows sinus rhythm with left axis deviation. No notable ST abnormalities. Patient was given 10 mg labetalol, 10 mg hydralazine IV with improvement of blood pressure into the systolics of 180s. States that her blood pressure typically runs in the 200s at home and so I did not want to rapidly lower her blood pressure further. CBC, BMP were obtained and notable for hemoglobin 6.7, likely not far from her baseline per patient's report she states she's required multiple transfusions in the past. BUN 25, creatinine 6.86 consistent with her ESRD. Patient will be transfused with 1 units of packed cells and admitted for further management of accelerated hypertension. Nephrology consulted for dialysis which is due today as scheduled. Critical Care Narrative Aggregate critical care time was 45 minutes. Time to perform other separately billable procedures was not included in the critical care time. My time did not include minutes spent treating any other patients simultaneously or on activities that did not directly contribute to the patient's treatment. The services I provided to this patient were to treat and/or prevent clinically significant deterioration that could result in: Accelerated hypertension, anemia , cardiopulmonary decompensation, , disability I provided critical care services requiring my management, as noted below: Chart data review, documentation time, medication orders and management, vital sign assessments/reviewing monitor data, ordering and reviewing lab tests, ordering and interpreting/reviewing x-rays and diagnostic studies, care of the patient and discussion of the patient with the admitting physicians. Diagnosis Primary Impression: Accelerated hypertension Additional Impressions: Anemia Qualified Code: D64.9 - Anemia, unspecified type End stage renal disease on dialysis Admitting Information Admitting Physician Requests: it Eve Rios MD Jun 16, 2016 16:57
[2016-06-16] MEDS ORDERED: cloNIDine HCL 0.2 MG TAB PO ONE (17:15)
[2016-06-16] MEDS ORDERED: MAGNESIUM HYDROXIDE SUSP 30 ML CUP PO PRN (17:30)
[2016-06-16] MEDS ORDERED: NALOXONE HCL 0.4 MG/ML AMP IV PRN (17:30)
[2016-06-16] MEDS ORDERED: ONDANSETRON HCL 4 MG/2 ML VIAL IVP PRN (17:30)
--- NOTE | 2016-06-16 17:30 | RADRPT ---
EXAM DATE/TIME: 06/16/2016 17:20 [facility] COMPARISON: CHEST SINGLE AP, May 24, 2016, 10:36. INDICATIONS : Chest pain MEDICAL HISTORY : Diabetes mellitus type II. Renal insufficiency. SURGICAL HISTORY : None. ENCOUNTER: Initial ACUITY: 1 day PAIN SCORE: 4/10 LOCATION: Bilateral chest FINDINGS: A single view of the chest demonstrates the lungs to be symmetrically aerated without evidence of mas s, infiltrate or effusion. There is mild cardiomegaly with no evidence of pulmonary edema.. Osseous structures are intact. CONCLUSION: Mild cardiomegaly with no evidence of pulmonary edema. Truong Robledo MD on June 16, 2016 at 17:27 Board Certified Radiologist. This report was verified electronically.
[2016-06-16] MEDS ORDERED: PILL SPLITTER OTHER PRN (18:00)
[2016-06-16] MEDS: SEVELAMER CARBONATE 800 MG TAB PO SCH (20:18)
[2016-06-16] MEDS ORDERED: METOPROLOL SUCCINATE 50 MG EXTENDED RELEASE TAB PO SCH (21:00)
[2016-06-16] MEDS ORDERED: cloNIDine HCL 0.2 MG TAB PO SCH (21:00)
[2016-06-16] MEDS: NIFEdipine 60 MG SUSTAINED RELEASE TAB PO SCH (21:27)
[2016-06-16] MEDS: CARVEDILOL 6.25 MG TAB PO SCH (21:28)
[2016-06-16] MEDS: hydrALAZINE HCL 50 MG TAB PO SCH (21:28)
[2016-06-16] MEDS: SODIUM CHLORIDE 0.9% FLUSH 10 ML FLUSH IV FLUSH SCH (21:28)
[2016-06-17] VITALS (13 sets, daily range): BP systolic 125–189; BP diastolic 68–98; PULSE 71–97; RESP 17–20; TEMP 96.1–99.2; O2SAT 92–99
[2016-06-17] MEDS: SODIUM CHLORIDE 0.9% FLUSH 10 ML FLUSH IV FLUSH SCH ×2 (08:21→21:00)
[2016-06-17] MEDS: CARVEDILOL 6.25 MG TAB PO SCH (08:22)
[2016-06-17] MEDS: hydrALAZINE HCL 50 MG TAB PO SCH ×2 (08:22→22:46)
[2016-06-17] MEDS: cloNIDine HCL 0.2 MG TAB PO SCH ×2 (08:22→22:46)
[2016-06-17] MEDS: NIFEdipine 60 MG SUSTAINED RELEASE TAB PO SCH ×2 (08:22→22:45)
[2016-06-17] MEDS: SEVELAMER CARBONATE 800 MG TAB PO SCH ×3 (08:22→17:45)
[2016-06-17] MEDS: PANTOPRAZOLE SOD 40 MG DELAYED RELEASE TAB PO SCH (08:22)
--- NOTE | 2016-06-17 09:00 | EKG ---
Date Performed: 06/16/2016 Time Performed: 14:57:36 PTAGE: 56 years EKG: Sinus rhythm LEFT AXIS DEVIATION NONSPECIFIC ST & T-WAVE ABNORMALITY ABNORMAL ECG PREVIOUS TRACING : 05/24/2016 10.35 No significant change from previous tracing noted. DOCTOR: Tu Rodriguez Interpretating Date/Time 06/17/2016 08:58:34
--- NOTE | 2016-06-17 09:20 | PD.CONS ---
HPI History of Present Illness This is a 56 year old female with ESRD, on HD on Mondays, Wednesdays, and Fridays. She presented to the ER yesterday. She reports that her is here in the hospital and that she went to the ER to have her blood pressure checked. Her systolic blood pressure was noted to be elevated with a systolic blood pressure around 250. She had labwork done and was found to have a H/H of 6.7/20.1. She was previously admitted from 05/24-05/30 for severe anemia with a hemoglobin of 4.3 on admission. She was seen by our service at that time and EGD/Colonoscopy was recommended, but she refused on multiple occasions. She reports that her appetite is good and she denies any weight loss, heartburn, nausea, vomiting, abdominal pain, bowel changes, constipation, diarrhea, melena , or hematochezia. I discussed with patient further evaluation with EGD/ Colonoscopy- procedure, risks, benefits, as well as the risks of not proceeding. She states that she is not interested in pursuing these procedures. She states "that's not going to happen." (Renu Bennett) [facility] Past Medical History Severe anemia ESRD, on HD M-W-F HTN Type 2 DM Past Surgical History Left forearm fistula (Renu Bennett) Coded Allergies: No Known Allergies (Unverified , 04/08/16) Medications Allergies Coded Allergies Type Severity Reaction Last Updated Verified No Known Allergies 04/08/16 No Active Scripts Medications Dose Route/Sig Days Date Category Dose Instructions Clonidine (Clonidine HCl) 0.2 Mg Tab 0.2 Mg PO BID 05/30/16 Rx Protonix (Pantoprazole Sodium) 40 Mg Tab 40 Mg PO DAILY 05/30/16 Rx Nifedipine ER 24 HR (Nifedipine) 60 Mg Tab 60 Mg PO BID 05/30/16 Rx Hydralazine (Hydralazine HCl) 50 Mg Tab 75 Mg PO BID 05/30/16 Rx Take with a meal Aspirin Adult Low Strength (Aspirin) 81 Mg Tabdr 81 Mg PO DAILY 05/24/16 Reported Vitamin B-12 (Cyanocobalamin) 1,000 Mcg Tab 1,000 Mcg PO DAILY 05/24/16 Reported Metoprolol Succinate ER 24 HR (Metoprolol Succinate) 100 Mg Tab 100 Mg PO HS 05/24/16 Reported Amlodipine (Amlodipine Besylate) 10 Mg Tab 10 Mg PO DAILY 04/25/16 Rx Lortab (Hydrocodone-Acetaminophen) 5-325 Mg Tab 1 Tab PO Q6H PRN 04/25/16 Rx Coreg (Carvedilol) 6.25 Mg Tab 6.25 Mg PO Q12HR 30 04/09/16 Rx Glyburide 5 Mg Tab 5 Mg PO DAILY 04/08/16 Reported Take with meals at the same time each day Renvela (Sevelamer Carbonate) 800 Mg Tab 800 Mg PO TID 04/08/16 Reported Take with meals Family History Pt denies any family hx of cancer. Social History Denies the use of tobacco, etoh, or illicit drug use. (Renu Bennett ) Review of Systems Constitutional: COMPLAINS OF: Fatigue, DENIES: Weight loss, Change in appetite Respiratory: DENIES: Cough Cardiovascular: DENIES: Chest pain Gastrointestinal: DENIES: Abdominal pain, Black stools, Bloody stools, Constipation, Nausea, Vomiting, Anorexia, Swelling of Abdomen, Heartburn, Hematemesis Musculoskeletal: COMPLAINS OF: Joint pain, Back pain Hematologic/lymphatic: DENIES: Bruising Neurologic: COMPLAINS OF: Headache Psychiatric: DENIES: Confusion (Renu Bennett) GI Exam Vitals I&O Vital Signs Date Time Temp Pulse Resp B/P Pulse Ox O2 Delivery O2 Flow Rate FiO2 06/17/16 05:00 98.1 80 20 174/78 92 06/17/16 05:00 98.1 80 20 174/78 92 06/17/16 01:50 97.6 74 18 159/98 96 06/17/16 01:40 97.3 73 18 166/90 97 06/17/16 00:00 98.0 97 20 166/90 94 06/16/16 22:30 98 16 186/86 99 06/16/16 21:00 99.0 79 21 198/110 95 06/16/16 20:07 70 23 217/107 99 Room Air 06/16/16 18:30 76 15 236/112 100 Room Air 06/16/16 16:30 75 15 228/101 98 Room Air 06/16/16 15:43 188/95 06/16/16 15:00 66 15 231/111 98 Room Air 06/16/16 14:40 22 96 Room Air 06/16/16 14:00 80 20 264/126 99 Room Air 06/16/16 13:10 98.1 79 22 245/112 98 Room Air 06/16/16 13:00 80 22 99 Room Air 06/16/16 12:54 231/116 I/O 06/16/16 06/16/16 06/16/16 06/17/16 06/17/16 06/17/16 07:00 15:00 23:00 07:00 15:00 23:00 Intake Total 240 ml 730 ml Balance 240 ml 730 ml Intake Oral 240 ml 480 ml IV Total 0 ml Packed Cells 250 ml # Voids 1 1 # Bowel Movements 0 0 Imaging Last Impressions Chest X-Ray 06/16/16 0000 Signed Impressions: Service Date/Time: Thursday, June 16, 2016 17:20 - CONCLUSION: Mild cardiomegaly with no evidence of pulmonary edema. Truong Robledo MD Laboratory Test 06/16/16 06/16/16 14:26 16:09 White Blood Count 8.1 TH/MM3 Red Blood Count 2.21 MIL/MM3 Hemoglobin 6.7 GM/DL Hematocrit 20.1 % Mean Corpuscular Volume 91.1 FL Mean Corpuscular Hemoglobin 30.4 PG Mean Corpuscular Hemoglobin 33.3 % Concent Red Cell Distribution Width 17.8 % Platelet Count 238 TH/MM3 Mean Platelet Volume 8.6 FL Neutrophils (%) (Auto) 73.0 % Lymphocytes (%) (Auto) 13.0 % Monocytes (%) (Auto) 6.3 % Eosinophils (%) (Auto) 6.5 % Basophils (%) (Auto) 1.2 % Neutrophils # (Auto) 5.9 TH/MM3 Lymphocytes # (Auto) 1.0 TH/MM3 Monocytes # (Auto) 0.5 TH/MM3 Eosinophils # (Auto) 0.5 TH/MM3 Basophils # (Auto) 0.1 TH/MM3 CBC Comment DIFF FINAL Differential Comment Sodium Level 137 MEQ/L Potassium Level 4.2 MEQ/L Chloride Level 100 MEQ/L Carbon Dioxide Level 25.6 MEQ/L Anion Gap 11 MEQ/L Blood Urea Nitrogen 25 MG/DL Creatinine 6.86 MG/DL Estimat Glomerular Filtration 6 ML/MIN Rate Random Glucose 125 MG/DL Calcium Level 9.1 MG/DL Troponin I 0.57 NG/ML Prothrombin Time 10.5 SEC Prothromb Time International 1.0 RATIO Ratio Activated Partial 20.0 SEC Thromboplast Time Blood Type O POSITIVE Antibody Screen NEGATIVE Crossmatch Leukocyte-Reduced Red Blood Cells Blood Bank Comment Physical Examination HEENT: Normocephalic; atraumatic; no jaundice. CHEST: CTA CARDIAC: RRR. ABDOMEN: Soft, obese, nondistended, nontender; no hepatosplenomegaly; bowel sounds are present in all four quadrants. EXTREMITIES: BLE edema. SKIN: Normal; no rash; no jaundice. BUNKER WORKER: No focal deficits; alert and oriented times three. Poor historian (Renu Bennett) Assessment and Plan Plan ASSESSMENT: - Severe anemia. Pt was hospitalized from 05/24-05/30 for severe anemia with a hemoglobin of 4.3 on admission. She was seen by our service at that time and EGD/Colonoscopy was recommended, but she refused on multiple occasions. HH on 05/30 was 8.2/24.6. On admission, she was noted to have HH of 6.7/20.1. She denies any GI symptoms. I discussed with patient further evaluation with EGD/Colonoscopy- procedure, risks, benefits, as well as the risks of not proceeding. She states that she is not interested in pursuing these procedures. She states "that's not going to happen." PPI. - Uncontrolled HTN. Per primary. Clonidine, Coreg, Apresoline, Procardia, Toprol, Norvasc. - ESRD, HD Mondays, Wednesdays, and Fridays. Per renal PLAN: - Renal diet as tolerated - PPI - Monitor HH - Transfuse as necessary - Pt is again refusing EGD/Colonoscopy. We will sign off, please reconsult us should she change her mind - Pt seen and examined by Dr. Baptiste and myself and this note is written on his behalf (Renu Bennett) Physician Comments Patient seen and examined Agree with above Continue with current supportive care Monitor labs and transfuse as needed Not much to add from a GI standpoint with the patient refusing endoscopy one may make consideration for imaging studies if patient is agreeable but I will defer to attending physician to make that final decision We will sign off (Mohit Baptiste MD) Renu Bennett Jun 17, 2016 09:20 Mohit Baptiste MD Jun 17, 2016 23:05
--- NOTE | 2016-06-17 10:57 | PD.CONS ---
HPI Consult Requested By Reason for Consult End-stage renal disease with need for dialysis. Primary Care Physician No Primary Care Physician History of Present Illness 56-year-old female with a history of hypertension diabetes mellitus as well as end-stage renal disease on maintenance hemodialysis. Patient was originally from [place] now living locally. Patient now presents with recurrence of severe anemia. During recent admission refused endoscopy/colonoscopy to determine site of bleeding and now apparently is refusing again. Patient receives dialysis as an outpatient on Tuesdays, and Saturdays. Should be noted that the patient was provided with written notice directly of termination from my practice on June 10, 2016 with provision for 30 days of emergent care if required. Patient informed me she has not yet established with another corporate legal manager. She was advised again that I will not be available after the above-mentioned timeframe to provide nephrology services to her and of the importance of establishing with another corporate legal manager prior to the provision mentioned above. She was advised that she had a life-threatening condition if untreated. Patient presently has no verbal complaints. Review of Systems Constitutional: DENIES: Diaphoretic episodes, Fatigue, Fever, Weight gain, Weight loss, Chills, Dizziness, Change in appetite, Night Sweats Cardiovascular: DENIES: Chest pain, Palpitations, Syncope, Dyspnea on Exertion , PND, Lower Extremity Edema, Orthopnea, Claudication Gastrointestinal: DENIES: Abdominal pain, Black stools, Bloody stools, Constipation, Diarrhea, Nausea, Vomiting, Difficulty Swallowing, Anorexia Past Family Social History Allergies: Coded Allergies: No Known Allergies (Unverified , 04/08/16) Past Medical History ESRD on HD DM HTN Anemia of renal disease Medical non-compliance Past Surgical History Placement of AV dialysis fistula left upper extremity. Reported Medications Inpatient Medications Reported Meds & Active Scripts Active Clonidine (Clonidine HCl) 0.2 Mg Tab 0.2 Mg PO BID Protonix (Pantoprazole Sodium) 40 Mg Tab 40 Mg PO DAILY Nifedipine ER 24 HR (Nifedipine) 60 Mg Tab 60 Mg PO BID Hydralazine (Hydralazine HCl) 50 Mg Tab 75 Mg PO BID Take with a meal Amlodipine (Amlodipine Besylate) 10 Mg Tab 10 Mg PO DAILY Lortab (Hydrocodone-Acetaminophen) 5-325 Mg Tab 1 Tab PO Q6H PRN Coreg (Carvedilol) 6.25 Mg Tab 6.25 Mg PO Q12HR 30 Days Reported Aspirin Adult Low Strength (Aspirin) 81 Mg Tabdr 81 Mg PO DAILY Vitamin B-12 (Cyanocobalamin) 1,000 Mcg Tab 1,000 Mcg PO DAILY Metoprolol Succinate ER 24 HR (Metoprolol Succinate) 100 Mg Tab 100 Mg PO HS Glyburide 5 Mg Tab 5 Mg PO DAILY Take with meals at the same time each day Renvela (Sevelamer Carbonate) 800 Mg Tab 800 Mg PO TID Take with meals Active Ordered Medications Inpatient Medications Amlodipine Besylate (Norvasc) 10 mg DAILY PO Last administered on 06/17/16 08: 22; Start 06/16/16 at 18:00 Carvedilol (Coreg) 25 mg Q12HR PO ; Start 06/17/16 at 21:00 Clonidine (Catapres) 0.2 mg BID PO Last administered on 06/17/16 08:22; Start 06/17/16 at 09:00 Hydralazine HCl (Apresoline Inj) 10 mg ONCE ONCE IV PUSH Last administered on 06/16/16 14:51; Start 06/16/16 at 14:15; Stop 06/16/16 at 14:16; Status DC Hydralazine HCl (Apresoline) 75 mg BID PO Last administered on 06/17/16 08:22 ; Start 06/16/16 at 21:00 Labetalol HCl (Trandate Inj) 10 mg ONCE ONCE IV PUSH Last administered on 06/16 14:52; Start 06/16/16 at 14:15; Stop 06/16/16 at 14:16; Status DC Magnesium Hydroxide (Milk Of Magnesia Liq) 30 ml Q12H PRN PO CONSTIPATION; Start 06/16/16 at 17:30 Metoprolol Succinate (Toprol Xl) 50 mg HS PO ; Start 06/17/16 at 21:00 Miscellaneous (Pill Splitter) 1 ea UNSCH PRN OTHER SEE LABEL COMMENTS; Start at 18:00 Naloxone HCl (Narcan Inj) 0.4 mg UNSCH PRN IV SEE LABEL COMMENTS; Start at 17:30 Nifedipine (Procardia Xl) 60 mg BID PO Last administered on 06/17/16 08:22; Start 06/16/16 at 21:00 Ondansetron HCl (Zofran Inj) 4 mg Q6H PRN IVP NAUSEA OR VOMITING; Start at 17:30 Pantoprazole Sodium (Protonix) 40 mg DAILY PO Last administered on 06/17/16 08 :22; Start 06/17/16 at 09:00 Sevelamer Carbonate (Renvela) 800 mg TID PO Last administered on 06/17/16 08: 22; Start 06/16/16 at 18:00 Sodium Chloride (NS Flush) 2 ml BID IV FLUSH Last administered on 06/17/16 08: 21; Start 06/16/16 at 21:00 Family History Noncontributory to current complaint. Social History Lives with her . No reported illicit drug use. Physical Exam Vital Signs Vital Signs Date Time Temp Pulse Resp B/P Pulse Ox O2 Delivery O2 Flow Rate FiO2 06/17/16 08:00 96.1 74 17 162/78 99 06/17/16 05:00 98.1 80 20 174/78 92 06/17/16 05:00 98.1 80 20 174/78 92 06/17/16 01:50 97.6 74 18 159/98 96 06/17/16 01:40 97.3 73 18 166/90 97 06/17/16 00:00 98.0 97 20 166/90 94 06/16/16 22:30 98 16 186/86 99 06/16/16 21:00 99.0 79 21 198/110 95 06/16/16 20:07 70 23 217/107 99 Room Air 06/16/16 18:30 76 15 236/112 100 Room Air 06/16/16 16:30 75 15 228/101 98 Room Air 06/16/16 15:43 188/95 06/16/16 15:00 66 15 231/111 98 Room Air 06/16/16 14:40 22 96 Room Air 06/16/16 14:00 80 20 264/126 99 Room Air 06/16/16 13:10 98.1 79 22 245/112 98 Room Air 06/16/16 13:00 80 22 99 Room Air 06/16/16 12:54 231/116 Laboratory Laboratory Tests Test 06/16/16 06/16/16 14:26 16:09 White Blood Count 8.1 Red Blood Count 2.21 Hemoglobin 6.7 Hematocrit 20.1 Mean Corpuscular Volume 91.1 Mean Corpuscular Hemoglobin 30.4 Mean Corpuscular Hemoglobin 33.3 Concent Red Cell Distribution Width 17.8 Platelet Count 238 Mean Platelet Volume 8.6 Neutrophils (%) (Auto) 73.0 Lymphocytes (%) (Auto) 13.0 Monocytes (%) (Auto) 6.3 Eosinophils (%) (Auto) 6.5 Basophils (%) (Auto) 1.2 Neutrophils # (Auto) 5.9 Lymphocytes # (Auto) 1.0 Monocytes # (Auto) 0.5 Eosinophils # (Auto) 0.5 Basophils # (Auto) 0.1 CBC Comment DIFF FINAL Differential Comment Sodium Level 137 Potassium Level 4.2 Chloride Level 100 Carbon Dioxide Level 25.6 Anion Gap 11 Blood Urea Nitrogen 25 Creatinine 6.86 Estimat Glomerular Filtration 6 Rate Random Glucose 125 Calcium Level 9.1 Troponin I 0.57 Prothrombin Time 10.5 Prothromb Time International 1.0 Ratio Activated Partial 20.0 Thromboplast Time Blood Type O POSITIVE Antibody Screen NEGATIVE Crossmatch Leukocyte-Reduced Red Blood Cells Blood Bank Comment Result Diagram: 06/16/16 1426 06/16/16 1426 Imaging Last 48 hours Impressions Chest X-Ray 06/16/16 0000 Signed Impressions: Service Date/Time: Thursday, June 16, 2016 17:20 - CONCLUSION: Mild cardiomegaly with no evidence of pulmonary edema. Truong Robledo MD Assessment and Plan Problem List: (1) ESRD (end stage renal disease) Plan: Will provide inpatient dialysis today. Patient reminded of notice a determination from my practice and timeframe that she needs to establish with another corporate legal manager as indicated above. She was also advised that I will no longer be available to provide medical services to her after the above-mentioned timeframe of 30 days from notice on June 10, 2016. She indicated that she was aware of same. (2) Hypertension Plan: Hypertension regimen as ordered with monitoring. Suspect noncompliance with hypertensive medications prior to admission. (3) Anemia Plan: Patient has anemia renal disease however there is evidence of GI bleeding also. I discussed with her the importance of having GI procedures performed but she indicated that she was going to leave the hospital after dialysis. (4) Diabetes mellitus Plan: Management per primary care physician. (5) Non-compliance Plan: Ongoing counseling previously to improve compliance. Problem Qualifiers (1) Anemia: Qualified Code: D64.9 - Anemia, unspecified type Jillian Rubio MD Jun 17, 2016 10:57
[2016-06-17] MEDS ORDERED: SODIUM CHLOR 0.9% 1000 ML INJ 1,000 ML IV PRN ×3 (11:08)
[2016-06-17] MEDS ORDERED: cloNIDine HCL 0.1 MG TAB PO PRN (11:15)
[2016-06-17] MEDS ORDERED: NITROGLYCERIN 0.4 MG SL 25 TABS/BTL SL PRN (11:15)
[2016-06-17] MEDS ORDERED: GELATIN 12 MM/7 MM FOAM TOP PRN (11:15)
[2016-06-17] MEDS ORDERED: diphenhydrAMINE HCL 25 MG CAP PO PRN (11:15)
[2016-06-17] MEDS ORDERED: ONDANSETRON HCL 4 MG/2 ML VIAL IV PRN (11:15)
[2016-06-17] MEDS ORDERED: SODIUM CHLORIDE 0.9% FLUSH 10 ML FLUSH IV FLUSH PRN (11:15)
[2016-06-17] MEDS ORDERED: HEPARIN SODIUM - IV 10,000 UNITS/10 ML VIAL PRN (11:15)
[2016-06-17] MEDS ORDERED: MANNITOL 12.5 GM/50 ML VIAL IV PRN (11:15)
[2016-06-17] MEDS ORDERED: GENTAMICIN SULFATE (DIALYSIS USE ONLY) 20 MG/2 ML VIAL IV PRN (11:15)
[2016-06-17] MEDS ORDERED: EPOETIN ALFA 10,000 UNITS/ML VIAL IV PRN (11:15)
[2016-06-17] MEDS ORDERED: ALBUMIN HUMAN 25% 25 GM/100 ML BAGP IV PRN (11:15)
[2016-06-17] MEDS ORDERED: ACETAMINOPHEN 325 MG TAB PO PRN (11:15)
[2016-06-17 11:17] LABS: ALKALINE PHOSPHATASE 90 U/L (45-117); ALT (GPT) 18 U/L (10-53); ANION GAP 13 MEQ/L (5-15); AST (GOT) 16 U/L (15-37); BICARBONATE 25.2 MEQ/L (21.0-32.0); CHLORIDE 95 MEQ/L (98-107); GLOMERULAR FILTRATION RATE 5 ML/MIN (>89); POTASSIUM 4.2 MEQ/L (3.5-5.1); SODIUM (NA) 133 MEQ/L (136-145); TOTAL BILIRUBIN ADULT 0.7 MG/DL (0.2-1.0)
[2016-06-17 11:24] LABS: BLOOD UREA NITROGEN 36 MG/DL (7-18)
--- NOTE | 2016-06-17 11:40 | HHI.FPPN ---
Subjective Remarks Patient is complaining of some shortness of breath this morning and discomfort in her legs that she describes as "painful movements"she states that the shortness of breath is improved with supplemental oxygen. She was able to eat dinner last night without any issue and denies symptoms such as constipation. She denies any overt chest pain, she denies any palpitations, she denies any abdominal pain, denies any nausea/vomiting, denies any fevers or chills. In summary this is a 56-year-old female who presents to the emergency department with hypertensive urgency. She had no complaints at that time, actually is visiting the hospital as her is currently hospitalized and had asked a nurse to check her blood pressure and found her systolic blood pressure to be 260. She was then sent to the emergency department for further evaluation where she was noted to be hypertensive with a blood pressure of 231/ 116 as well as anemic with a hemoglobin of 6.7. She is chronically anemic as she has chronic end-stage renal disease requiring dialysis on Thursday// Thursday with Dr. Rubio. She was hospitalized from with anemia, presenting with a hemoglobin of 4.3 requiring blood transfusion and GI workup. However she declined any GI workup including EGD and colonoscopy. She eventually was discharged from the hospital with a hemoglobin of 8.2 after transfusion. She is relatively new to the area, moving down from [place] approximately 3 months ago. She does not have a primary care provider and follows with Dr. Rubio for her dialysis. Apparently, she was recently notified of termination from Dr. Rubio's practice and has not established with a new wad compressor operator adjuster. She is a very poor historian and likely noncompliant with her medications at home Past Medical History End-stage renal disease on hemodialysis (wad compressor operator adjuster is Dr. Rubio) Hypertension Type 2 diabetes Past Surgical History Left forearm fistula Family History Unknown. Poor historian. Social History Patient is originally from [place]. She has been to her , Bandar, for approximately 10 years. Bandar has 1 daughter, who is living in [place] and expecting a child. Ryanne has no children. Ryanne and her moved to [place] approximately one year ago because her wanted to get away from the cold. She states she lives in a house with her and dogs. No smoking. No alcohol. No illicit drugs Objective Vitals Vital Signs Date Time Temp Pulse Resp B/P Pulse Ox O2 Delivery O2 Flow Rate FiO2 06/17/16 08:00 96.1 74 17 162/78 99 06/17/16 05:00 98.1 80 20 174/78 92 06/17/16 05:00 98.1 80 20 174/78 92 06/17/16 01:50 97.6 74 18 159/98 96 06/17/16 01:40 97.3 73 18 166/90 97 06/17/16 00:00 98.0 97 20 166/90 94 06/16/16 22:30 98 16 186/86 99 06/16/16 21:00 99.0 79 21 198/110 95 06/16/16 20:07 70 23 217/107 99 Room Air 06/16/16 18:30 76 15 236/112 100 Room Air 06/16/16 16:30 75 15 228/101 98 Room Air 06/16/16 15:43 188/95 06/16/16 15:00 66 15 231/111 98 Room Air 06/16/16 14:40 22 96 Room Air 06/16/16 14:00 80 20 264/126 99 Room Air 06/16/16 13:10 98.1 79 22 245/112 98 Room Air 06/16/16 13:00 80 22 99 Room Air 06/16/16 12:54 231/116 I/O 06/16/16 06/16/16 06/16/16 06/17/16 06/17/16 06/17/16 07:00 15:00 23:00 07:00 15:00 23:00 Intake Total 240 ml 730 ml Balance 240 ml 730 ml Intake Oral 240 ml 480 ml IV Total 0 ml Packed Cells 250 ml # Voids 1 1 # Bowel Movements 0 0 Result Diagram: 06/16/16 1426 06/16/16 1426 Imaging Last 48 hours Impressions Chest X-Ray 06/16/16 0000 Signed Impressions: Service Date/Time: Thursday, June 16, 2016 17:20 - CONCLUSION: Mild cardiomegaly with no evidence of pulmonary edema. Truong Robledo MD Objective Remarks GENERAL: This is an obese, dirty, disheveled-appearing female in no obvious distress SKIN: No rashes, ecchymoses or lesions. Cool and dry. NECK: Trachea midline. No JVD or lymphadenopathy. Supple, nontender, no meningeal signs. CARDIOVASCULAR: Regular rate and rhythm without murmurs, gallops, or rubs. RESPIRATORY: Clear to auscultation. Scattered expiratory wheezes without overt rhonchi or crackles GASTROINTESTINAL: Abdomen obese, soft, non-tender, nondistended. MUSCULOSKELETAL: Extremities without clubbing, cyanosis, or edema. Left forearm with AV fistula in place NEUROLOGICAL: Awake and alert. Normal speech. A/P Assessment and Plan 56-year-old female with past medical history of end-stage renal disease, hypertension, diabetes presents with hypertensive urgency and anemia. She was previously seen earlier this month with a hemoglobin of around 4. At that time she refused workup and was not compliant. Patient will be admitted for blood transfusion, hemodialysis, anemia workup. Problem List: (1) Anemia Status: Acute Plan: Recently hospitalized with anemia of 4.3 requiring transfusion - had melena and apparent coffee-ground emesis during that hospitalization - GI evaluation recommended with EGD and colonoscopy, however patient refused GI consulted and patient is again refusing EGD/colonoscopy - GI has understandably signed off Transfuse 1 unit PRBC with repeat hemoglobin pending - Monitor H/H and transfuse as needed - Continue PPI (2) Accelerated hypertension Status: Acute Plan: Blood pressure ranging from 231/116 up to 264/126 on arrival Patient likely noncompliant with home medication regimen as she does not know what medication she should be taking Restart home antihypertensive regimen as below with a few changes: Carvedilol 25 mg by mouth twice a day (increased from 6.125 by mouth twice a day ) Lopressor XL 50 mg by mouth daily at bedtime Clonidine 0.2 mg by mouth twice a day Hydralazine 75 mg by mouth twice a day Nifedipine 60 mg by mouth twice a day Amlodipine 10 mg by mouth daily She is on a very complicated regimen of antihypertensives, we will titrate medications up and try to simplify her regimen throughout her hospitalization Monitor on telemetry Initial cardiac troponin elevated at 0.57, this is improved from her previous hospital stay and patient does not complain of chest pain (3) End stage renal disease on dialysis Status: Acute Plan: Nephrology consulted, Dr. Rubio Hemodialysis Thursday, , Thursday (4) Diabetes mellitus Status: Acute Plan: Blood glucoses ranging from [id number] Patient is supposed be on glyburide at home, unsure of compliance On hospital we will cover with sliding scale insulin (5) Non-compliance Status: Acute Plan: Discussed importance of medication management of her chronic issues - Patient does not understand her medication regimen - We will try to simplify her medications once her blood pressure is more stable (6) Elevated troponin Status: Acute Plan: Troponin 0.57. Trending down appropriately from previous admission. (7) FEN/PPX Status: Acute Plan: Fluids: Careful with IV fluids with end-stage renal disease Electrolytes: Monitor and replace when necessary Nutrition: Renal diet Prophylaxis: Hold anti-coagulation in setting of anemia; bilateral SCDs Problem Qualifiers (1) Anemia: Qualified Code: D64.9 - Anemia, unspecified type Simeon Guevara MD Jun 17, 2016 11:40
[2016-06-17 12:26] LABS: AUTOMATED NEUTROPHIL # 6.6 TH/MM3 (1.8-7.7); BASOPHIL # 0.1 TH/MM3 (0-0.2); EOSINOPHIL # 0.5 TH/MM3 (0-0.4); EOSINOPHIL % 5.7 % (0.0-4.0); LYMPH % 10.8 % (9.0-44.0); LYMPHOCYTE # 0.9 TH/MM3 (1.0-4.8); MEAN CELL VOLUME 88.6 FL (80.0-100.0); MEAN CORPUSCULAR HGB CONC 33.9 % (32.0-36.0); MONO % 6.8 % (0.0-8.0); NEUT % 75.7 % (16.0-70.0); PLATELET COUNT 222 TH/MM3 (150-450); RED BLOOD COUNT 2.33 MIL/MM3 (4.00-5.30); RED CELL DISTRIBUTION WIDTH 18.7 % (11.6-17.2); WHITE BLOOD COUNT 8.7 TH/MM3 (4.0-11.0)
[2016-06-17 12:34] LABS: HEMO FLAGS DIFF FINAL
[2016-06-17 12:37] LABS: HEMATOCRIT 20.6 % (35.0-46.0)
[2016-06-17] MEDS ORDERED: SODIUM CHLOR 0.9% 250 ML INJ 250 ML IV ONE (13:00)
[2016-06-17] MEDS ORDERED: METOPROLOL SUCCINATE 50 MG EXTENDED RELEASE TAB PO SCH (21:00)
[2016-06-17] MEDS: CARVEDILOL 12.5 MG TAB PO SCH (22:46)
[2016-06-18] VITALS: BP 189/89; PULSE 80; RESP 20; TEMP 99.2; O2SAT 94
[2016-06-18 08:00] VITALS: BP 135/61; PULSE 66; RESP 18; TEMP 98.6; O2SAT 93
[2016-06-18] MEDS: NIFEdipine 60 MG SUSTAINED RELEASE TAB PO SCH (08:15)
[2016-06-18] MEDS: PANTOPRAZOLE SOD 40 MG DELAYED RELEASE TAB PO SCH (08:15)
[2016-06-18] MEDS: hydrALAZINE HCL 50 MG TAB PO SCH (08:15)
[2016-06-18] MEDS: SEVELAMER CARBONATE 800 MG TAB PO SCH ×2 (08:15→13:21)
[2016-06-18] MEDS: cloNIDine HCL 0.2 MG TAB PO SCH (08:15)
[2016-06-18] MEDS: CARVEDILOL 12.5 MG TAB PO SCH (08:15)
[2016-06-18] MEDS: SODIUM CHLORIDE 0.9% FLUSH 10 ML FLUSH IV FLUSH SCH (08:20)
--- NOTE | 2016-06-18 08:29 | HHI.FPPN ---
Subjective Remarks Patient is doing well this morning. She has no complaints at this time. No chest pain, nausea, vomiting, shortness of breath, diarrhea, fever, chills. 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 Objective Vitals Vital Signs Date Time Temp Pulse Resp B/P Pulse Ox O2 Delivery O2 Flow Rate FiO2 06/18/16 00:00 99.2 80 20 189/89 94 06/17/16 22:50 99.2 80 20 189/89 94 06/17/16 21:44 93 21 06/17/16 20:00 98.1 75 18 166/78 93 06/17/16 18:01 98.0 92 17 177/88 94 06/17/16 17:48 98.5 74 19 176/76 93 06/17/16 16:53 97.4 73 18 164/78 99 06/17/16 12:00 96.4 71 17 125/68 97 I/O 06/17/16 06/17/16 06/17/16 06/18/16 06/18/16 06/18/16 07:00 15:00 23:00 07:00 15:00 23:00 Intake Total 730 ml 400 ml 646 ml 240 ml Output Total 0 ml 4000 ml Balance 730 ml 400 ml -3354 ml 240 ml Intake Oral 480 ml 400 ml 240 ml 240 ml IV Total 56 ml 0 ml Packed Cells 250 ml 350 ml Output Urine Total 0 ml Hemodialysis 4000 ml # Voids 1 0 0 0 # Bowel Movements 0 0 0 0 Result Diagram: 06/17/16 1210 06/17/16 1040 Objective Remarks GENERAL: This is an obese, disheveled-appearing female in no obvious distress SKIN: No rashes, ecchymoses or lesions. Cool and dry. NECK: Trachea midline. No JVD or lymphadenopathy. Supple, nontender, no meningeal signs. CARDIOVASCULAR: Regular rate and rhythm without murmurs, gallops, or rubs. RESPIRATORY: Clear to auscultation bilaterally. GASTROINTESTINAL: Abdomen obese, soft, non-tender, nondistended. MUSCULOSKELETAL: Extremities without clubbing, cyanosis, or edema. Left forearm with AV fistula in place NEUROLOGICAL: Awake and alert. Normal speech. A/P Assessment and Plan 56-year-old female with past medical history of end-stage renal disease, hypertension, diabetes presents with hypertensive urgency and anemia. She was previously seen earlier this month with a hemoglobin of around 4. She is noncompliant with recommendations, including refusal of recommended medical services. See below for full plan. Discharge Planning Likely today Problem List: (1) Anemia Status: Acute Plan: GI consulted and has recommended endoscopy/colonoscopy. Patient refuses. Patient understands by refusing colonoscopy/endoscopy we will not have full understanding of what is causing her anemia and she will likely continue to have worsening anemia which could result in /fatigue/other. Status post 2 packed red blood cells. Hemoglobin and hematocrit pending. Upon discharge, repeat H&H in one week. (2) Accelerated hypertension Status: Acute Plan: Blood pressure ranging from 231/116 up to 264/126 on arrival Patient likely noncompliant with home medication regimen as she does not know what medication she should be taking Counseled extensively on importance of taking her medication and following with her primary care physician. Case management has been consulted to help with primary care follow-up. Repeat blood pressure range on 06/17-06/18: 125/68- 189/89 Restart home antihypertensive regimen as below with a few changes: Carvedilol 25 mg by mouth twice a day (increased from 6.125 by mouth twice a day ) Lopressor XL 50 mg by mouth daily at bedtime Clonidine 0.2 mg by mouth twice a day Hydralazine 75 mg by mouth twice a day Nifedipine 60 mg by mouth twice a day Amlodipine 10 mg by mouth daily She is on a very complicated regimen of antihypertensives, we will titrate medications up and try to simplify her regimen throughout her hospitalization Initial cardiac troponin elevated at 0.57, this is improved from her previous hospital stay and patient does not complain of chest pain (3) End stage renal disease on dialysis Status: Acute Plan: Nephrology consulted, Dr. Rubio Hemodialysis Thursday, , Thursday (4) Diabetes mellitus Status: Acute Plan: Blood glucoses ranging from [id number] Patient is supposed be on glyburide at home, unsure of compliance On hospital we will cover with sliding scale insulin (5) Non-compliance Status: Acute Plan: Discussed importance of medication management of her chronic issues - Patient does not understand her medication regimen - We will try to simplify her medications once her blood pressure is more stable - Counseled importance of follow-up with PCP. (6) FEN/PPX Status: Acute Plan: Fluids: Careful with IV fluids with end-stage renal disease Electrolytes: Monitor and replace when necessary Nutrition: Renal diet Prophylaxis: Hold anti-coagulation in setting of anemia; bilateral SCDs Problem Qualifiers (1) Anemia: Qualified Code: D64.9 - Anemia, unspecified type Yash Masters MD R2 Jun 18, 2016 08:29
[2016-06-18] MEDS ORDERED: HYDR50TA15 PO (08:38)
[2016-06-18] MEDS ORDERED: CARV12.5 PO (08:38)
[2016-06-18] MEDS ORDERED: METO50TA11 PO (08:38)
--- NOTE | 2016-06-18 08:38 | HHI.DCPOC ---
Discharge Care Plan Diagnosis: (1) Noncompliance w/medication treatment due to intermit use ofmedication (2) Accelerated hypertension (3) Anemia (4) ESRD (end stage renal disease) Goals to Promote Your Health * To prevent worsening of your condition and complications * To maintain your health at the optimal level Directions to Meet Your Goals Take your medications as prescribed Follow your dietary instruction Follow activity as directed Keep your appointments as scheduled Take your immunizations and boosters as scheduled If your symptoms worsen call your PCP, if no PCP go to Urgent Care Center or Emergency Room Smoking is Dangerous to Your Health. Avoid second hand smoke Call the 24-hour hour crisis hotline for domestic abuse at Yash Masters MD R2 Jun 18, 2016 08:38
[2016-06-18 12:00] VITALS: BP 123/60; PULSE 61; RESP 18; TEMP 96.8; O2SAT 96
[2016-06-18 13:48] LABS: HEMATOCRIT 25.8 % (35.0-46.0); REVIEW FLAG FINAL
== END 2016-06-18 15:13 | disposition home or self-care (01) | DRG 304 ==
LOC: NEPE 12:45 → NEDA 16:31 → N07A 20:28
PROVIDERS: ADMIT Family Medicine; ATTEND Family Medicine
PROC: 30233N1 Transfusion of Nonautologous Red Blood Cells into Peripheral Vein, Percutaneous Approach (ICD-10-PCS; principal; 2016-06-16)
PROC: 5A1D00Z (ICD-10-PCS; 2016-06-17)
DX: I16.0 Hypertensive urgency (principal); N18.6 End stage renal disease; E11.22 Type 2 diabetes mellitus with diabetic chronic kidney disease; D63.1 Anemia in chronic kidney disease; I12.0 Hypertensive chronic kidney disease with stage 5 chronic kidney disease or end stage renal disease; Z91.14 Patient's other noncompliance with medication regimen; Z99.2 Dependence on renal dialysis; Z79.84 Long term (current) use of oral hypoglycemic drugs
CPT/HCPCS: 36430; 71010; 80048; 80053; 84484; 85014; 85018; 85025; 85610; 85730; 86850; 86900; 86901; 86920; 90935; 93005; 96374; 96375; J0360; J7030; J7050; P9016; Q4081

== ENCOUNTER 2016-06-19 07:11 | Inpatient (IN) | payer MEDICARE, OTHER ==
[~2016-06-19] VITALS: Ht 165.1 cm; Wt 80.0 kg
[~2016-06-19 07:11] MED LIST changes: +CARV12.5 PO; -CARV6.25 PO; -METO100T9 PO; +METO50TA11 PO; -WALKER WHEELS/F1 MIS
[2016-06-19] MEDS ORDERED: SODIUM CHLORIDE 0.9% FLUSH 10 ML FLUSH IV FLUSH PRN ×3 (07:30→13:45)
[2016-06-19 07:40] VITALS: BP 158/84; PULSE 65; RESP 16; TEMP 98.1; O2SAT 97
[2016-06-19] MEDS ORDERED: ONDANSETRON HCL 4 MG/2 ML VIAL IV PUSH ONE (08:00)
[2016-06-19] MEDS ORDERED: MORPHINE SULFATE 4 MG/ML INJ IV PUSH ONE (08:00)
--- NOTE | 2016-06-19 08:07 | PD ---
HPI Chief Complaint: abdominal pain Time Seen by Provider: 07:57 Travel History International Travel<30 days: No Contact w/Intl Traveler<30days: No Traveled to known affect area: No History of Present Illness HPI 56-year-old female patient with complicated medical history, hypertension, end- stage renal disease on dialysis currently trying to find any renal doctor, recently admitted for symptomatic anemia, accelerated hypertension, and GI bleeding, had refused to get a colonoscopy yesterday, and was released, presents back to the ER today because of abdominal pain which she currently rates it a 9 out of 10, and general weakness. She denies any fevers, vomiting, or any other symptoms. She denies any black stools or blood in the stools. Modifying Factors: None Associated Signs & Symptoms: Abdominal pain and general weakness Risk Factors: End-stage renal disease on dialysis, recent symptomatic anemia, GI bleeding PFSH Past Medical History Anemia: Yes Arthritis: No Cancer: No Cardiovascular Problems: Yes (HX OF HEART ATTACK, TIA, HYPERTENSION) High Cholesterol: Yes Cerebrovascular Accident: Yes Coronary Artery Disease: Yes Diabetes: Yes (TYPE 2) Dialysis: Yes Hypertension: Yes Musculoskeletal: No Psychiatric: No Reproductive: No Respiratory: No Renal Failure: Yes : 1 Miscarriage: 1 Past Surgical History Abdominal Surgery: No Cardiac Surgery: No Ear Surgery: No Endocrine Surgery: No Eye Surgery: No Genitourinary Surgery: No Gynecologic Surgery: No Oral Surgery: No Thoracic Surgery: No Other Surgery: Yes (LT FOREARM FISTULA) Social History Alcohol Use: No Tobacco Use: No Substance Use: No Allergies-Medications (Allergen,Severity, Reaction): Coded Allergies: No Known Allergies (Unverified , 04/08/16) Reported Meds & Prescriptions Reported Meds & Active Scripts Active Hydralazine (Hydralazine HCl) 50 Mg Tab 75 Mg PO BID Coreg (Carvedilol) 12.5 Mg Tab 25 Mg PO Q12HR Metoprolol Succinate ER 24 HR (Metoprolol Succinate) 50 Mg Tab 50 Mg PO HS Clonidine (Clonidine HCl) 0.2 Mg Tab 0.2 Mg PO BID Protonix (Pantoprazole Sodium) 40 Mg Tab 40 Mg PO DAILY Nifedipine ER 24 HR (Nifedipine) 60 Mg Tab 60 Mg PO BID Amlodipine (Amlodipine Besylate) 10 Mg Tab 10 Mg PO DAILY Lortab (Hydrocodone-Acetaminophen) 5-325 Mg Tab 1 Tab PO Q6H PRN Reported Aspirin Adult Low Strength (Aspirin) 81 Mg Tabdr 81 Mg PO DAILY Vitamin B-12 (Cyanocobalamin) 1,000 Mcg Tab 1,000 Mcg PO DAILY Glyburide 5 Mg Tab 5 Mg PO DAILY Take with meals at the same time each day Renvela (Sevelamer Carbonate) 800 Mg Tab 800 Mg PO TID Take with meals Review of Systems Except as stated in HPI: all other systems reviewed are Neg Physical Exam Narrative GENERAL: [Well-developed tired appearing middle age white female patient currently in mild distress. Awake and oriented 3. SKIN: Focused skin assessment warm/dry. HEAD: Atraumatic. Normocephalic. EYES: Pupils equal and round. No scleral icterus. No injection or drainage. ENT: No nasal bleeding or discharge. Mucous membranes pink and moist. NECK: Trachea midline. No JVD. CARDIOVASCULAR: Regular rate and rhythm. No murmur appreciated. RESPIRATORY: No accessory muscle use. Clear to auscultation. Breath sounds equal bilaterally. GASTROINTESTINAL: Abdomen soft, lower abdominal and left-sided tenderness without guarding or rebound, nondistended. Hepatic and splenic margins not palpable. MUSCULOSKELETAL: No obvious deformities. No clubbing. No cyanosis. No edema. NEUROLOGICAL: Awake and alert. No obvious cranial nerve deficits. Motor grossly within normal limits. Normal speech. PSYCHIATRIC: Appropriate mood and affect; insight and judgment normal. Data Data Last Documented VS Vital Signs Date Time Temp Pulse Resp B/P Pulse Ox O2 Delivery O2 Flow Rate FiO2 06/19/16 07:40 98.1 65 16 158/84 97 Orders Complete Blood Count With Diff (06/19/16 07:17) Comprehensive Metabolic Panel (06/19/16 07:17) Lipase (06/19/16 07:17) Prothrombin Time / Inr (Pt) (06/19/16 07:17) Act Partial Throm Time (Ptt) (06/19/16 07:17) Urinalysis - C+S If Indicated (06/19/16 07:17) Iv Access Insert/Monitor (06/19/16 07:17) Ecg Monitoring (06/19/16 07:17) Oximetry (06/19/16 07:17) Sodium Chloride 0.9% Flush (Ns Flush) (06/19/16 07:30) Ct Abd/Pel W/O Iv Contrast (06/19/16 07:57) Morphine Inj (Morphine Inj) (06/19/16 08:00) Ondansetron Inj (Zofran Inj) (06/19/16 08:00) Labs Laboratory Tests Test 06/19/16 07:50 White Blood Count 8.1 TH/MM3 Red Blood Count 2.85 MIL/MM3 Hemoglobin 8.6 GM/DL Hematocrit 25.3 % Mean Corpuscular Volume 88.6 FL Mean Corpuscular Hemoglobin 30.1 PG Mean Corpuscular Hemoglobin 33.9 % Concent Red Cell Distribution Width 17.8 % Platelet Count 254 TH/MM3 Mean Platelet Volume 8.6 FL Neutrophils (%) (Auto) 70.3 % Lymphocytes (%) (Auto) 12.9 % Monocytes (%) (Auto) 8.7 % Eosinophils (%) (Auto) 7.3 % Basophils (%) (Auto) 0.8 % Neutrophils # (Auto) 5.7 TH/MM3 Lymphocytes # (Auto) 1.0 TH/MM3 Monocytes # (Auto) 0.7 TH/MM3 Eosinophils # (Auto) 0.6 TH/MM3 Basophils # (Auto) 0.1 TH/MM3 CBC Comment DIFF FINAL Differential Comment Prothrombin Time 10.4 SEC Prothromb Time International 0.9 RATIO Ratio Activated Partial 18.7 SEC Thromboplast Time Sodium Level 135 MEQ/L Potassium Level 4.0 MEQ/L Chloride Level 97 MEQ/L Carbon Dioxide Level 25.8 MEQ/L Anion Gap 12 MEQ/L Blood Urea Nitrogen 49 MG/DL Creatinine 8.84 MG/DL Estimat Glomerular Filtration 5 ML/MIN Rate Random Glucose 261 MG/DL Calcium Level 8.8 MG/DL Total Bilirubin 0.6 MG/DL Aspartate Amino Transf 9 U/L (AST/SGOT) Alanine Aminotransferase 16 U/L (ALT/SGPT) Alkaline Phosphatase 88 U/L Total Protein 7.3 GM/DL Albumin 3.5 GM/DL Lipase 192 U/L MDM Medical Decision Making Medical Screen Exam Complete: Yes Emergency Medical Condition: Yes Medical Record Reviewed: Yes Interpretation(s) Laboratory Tests Test 06/19/16 07:50 Red Blood Count 2.85 MIL/MM3 (4.00-5.30) Hemoglobin 8.6 GM/DL (11.6-15.3) Hematocrit 25.3 % (35.0-46.0) Red Cell Distribution Width 17.8 % (11.6-17.2) Neutrophils (%) (Auto) 70.3 % (16.0-70.0) Monocytes (%) (Auto) 8.7 % (0.0-8.0) Eosinophils (%) (Auto) 7.3 % (0.0-4.0) Eosinophils # (Auto) 0.6 TH/MM3 (0-0.4) Activated Partial 18.7 SEC Thromboplast Time (24.3-30.1) Sodium Level 135 MEQ/L (136-145) Chloride Level 97 MEQ/L (98-107) Blood Urea Nitrogen 49 MG/DL (7-18) Creatinine 8.84 MG/DL (0.50-1.00) Estimat Glomerular Filtration 5 ML/MIN (>89) Rate Random Glucose 261 MG/DL (74-106) Aspartate Amino Transf 9 U/L (15-37) (AST/SGOT) Last 24 hours Impressions Abdomen/Pelvis CT 06/19/16 0757 Signed Impressions: Service Date/Time: May 08:37 - CONCLUSION: 1. Indistinctness and mild soft tissue changes in the mesentery adjacent to the head of the pancreas. This could indicate mild pancreatitis. 2. The gallbladder is unremarkable in appearance with no evidence of calcified stones. 3. Atrophic kidneys with scarring on the right. 4. Moderate cardiomegaly noted. Truong Robledo MD Differential Diagnosis Lower abdominal pain, general weaknessdehydration versus worsening renal failure versus sepsis versus UTI versus colitis versus other acute intra- abdominal processes versus GI bleeding versus symptomatic anemia Narrative Course Lab work shows anemia which is improved from the last exam. CAT scan shows mild pancreatitis. No other acute processes were identified. IV fluids and pain medications as been given to the patient. However, at this point, considering patient's ongoing symptoms, my plan would be to admit her for pancreatitis and she also states that she would like to get a colonoscopy done at this time. Case is discussed with family practice resident service for admission. Diagnosis Primary Impression: Chronic renal failure Additional Impressions: Anemia Pancreatitis Admitting Information Admitting Physician Requests: Admit Chuckie Slaughter MD Jun 19, 2016 08:07 Chuckie Slaughter MD Jun 19, 2016 08:07
[2016-06-19 08:08] LABS: AUTOMATED NEUTROPHIL # 5.7 TH/MM3 (1.8-7.7); BASOPHIL # 0.1 TH/MM3 (0-0.2); BASOPHIL % 0.8 % (0.0-2.0); EOSINOPHIL # 0.6 TH/MM3 (0-0.4); EOSINOPHIL % 7.3 % (0.0-4.0); HEMATOCRIT 25.3 % (35.0-46.0); HEMO FLAGS DIFF FINAL; LYMPH % 12.9 % (9.0-44.0); MEAN CELL VOLUME 88.6 FL (80.0-100.0); MEAN CORPUSCULAR HEMOGLOBIN 30.1 PG (27.0-34.0); MEAN CORPUSCULAR HGB CONC 33.9 % (32.0-36.0); MONO % 8.7 % (0.0-8.0); NEUT % 70.3 % (16.0-70.0); PLATELET COUNT 254 TH/MM3 (150-450); RED BLOOD COUNT 2.85 MIL/MM3 (4.00-5.30); RED CELL DISTRIBUTION WIDTH 17.8 % (11.6-17.2); WHITE BLOOD COUNT 8.1 TH/MM3 (4.0-11.0)
[2016-06-19 08:22] LABS: ALKALINE PHOSPHATASE 88 U/L (45-117); ALT (GPT) 16 U/L (10-53); ANION GAP 12 MEQ/L (5-15); AST (GOT) 9 U/L (15-37); BICARBONATE 25.8 MEQ/L (21.0-32.0); BLOOD UREA NITROGEN 49 MG/DL (7-18); CHLORIDE 97 MEQ/L (98-107); GLOMERULAR FILTRATION RATE 5 ML/MIN (>89); INTERNATIONAL NORMALIZED RATIO 0.9 RATIO; PROTHROMBIN TIME - PATIENT 10.4 SEC (9.8-11.6); SODIUM (NA) 135 MEQ/L (136-145); TOTAL BILIRUBIN ADULT 0.6 MG/DL (0.2-1.0)
[2016-06-19 08:29] LABS: APTT (PATIENT) 18.7 SEC (24.3-30.1)
--- NOTE | 2016-06-19 09:19 | RADRPT ---
EXAM DATE/TIME: 06/19/2016 08:37 [facility] COMPARISON: No previous studies available for comparison. INDICATIONS : Abdominal pain for several days ORAL CONTRAST: No oral contrast ingested. RADIATION DOSE: 23.61 CTDIvol (mGy) MEDICAL HISTORY : Hypertension. Renal failure, chronic. Diabetes mellitus type 1. SURGICAL HISTORY : None. ENCOUNTER: Initial ACUITY: 3 days PAIN SCALE: 7/10 LOCATION: diffuse abdomen TECHNIQUE: Volumetric scanning of the abdomen and pelvis was performed. Using automated exposure control and ad justment of the mA and/or kV according to patient size, radiation dose was kept as low as reasonably achievable to obtain optimal diagnostic quality images. FINDINGS: LOWER LUNGS: The visualized lower lungs are clear. Moderate cardiomegaly is present. LIVER: Homogeneous density without lesion. There is no dilation of the biliary tree. The gallbladder is unr emarkable appearance with no calcified gallstones. SPLEEN: Normal size without lesion. PANCREAS: There is mild indistinctness and mild wispy soft tissue change in the mesentery adjacent to the head of the pancreas. There is no focal mass or ductal dilatation on this noncontrast exam. There is no ev idence of biliary obstruction. KIDNEYS: The kidneys are small and atrophic in appearance with cortical thinning. There is cortical scarring o n the right. There are no renal calculi, obstruction or mass. The right collecting system appears par tially duplicated. ADRENAL GLANDS: Within normal limits. VASCULAR: There is no aortic aneurysm. BOWEL/MESENTERY: The stomach, small bowel, and colon demonstrate no acute abnormality. There is no free intraperitone al air or fluid. ABDOMINAL WALL: Within normal limits. RETROPERITONEUM: There is no lymphadenopathy. BLADDER: No wall thickening or mass. REPRODUCTIVE: Within normal limits. INGUINAL: There is no lymphadenopathy or hernia. MUSCULOSKELETAL: Within normal limits for patient age. CONCLUSION: 1. Indistinctness and mild soft tissue changes in the mesentery adjacent to the head of the pancreas. This could indicate mild pancreatitis. 2. The gallbladder is unremarkable in appearance with no evidence of calcified stones. 3. Atrophic kidneys with scarring on the right. 4. Moderate cardiomegaly noted. Truong Robledo MD on June 19, 2016 at 9:13 Board Certified Radiologist. This report was verified electronically.
--- NOTE | 2016-06-19 10:02 | HHI.HP ---
[facility] Service Family Medicine Primary Care Physician No Primary Care Physician Admission Diagnosis mild pancreatitis/abdominal pain Diagnoses: International Travel<30 Days: No Contact w/Intl Traveler<30days: No Known Affected Area: No History of Present Illness This is a 56 year old female, known to the service on her last admission this week. She is a poor historian. She is noncompliant with recommendations and with taking her medications. He was seen earlier this week with severe anemia, hypertensive urgency, end-stage renal disease. See 2 units of packed red blood cells which elevated her hemoglobin to 8.6. This level has been stable since yesterday. It was recommended during 2 hospital courses to undergo EGD/colonoscopy and she has refused them on both occasions. Today however, she states " I am willing to get a colonoscopy and EGD". She presents today because she "does not feel good." She states her stomach is hurting. She describes 8 out of 10 lower quadrant abdominal pain which started last night. She was able to eat a meal while in the hospital and on discharge when she was home watching television she first noticed the pain. She cannot describe the pain. It is nonradiating. The pain did however subside enough to allow her to sleep last night. Upon waking this morning, she continued to have 8 out of 10 constant nonradiating abdominal pain. Her last bowel movement was yesterday. She states it was brown in color. Denies fever or chills. On review of system, the patient complained of chest pain which she states she gets from time to time. She states she sometimes gets chest pain with exertion. She is unable to explain her pain any further other than this. She has not taken her meds this morning. (Yash Masters MD R2) Review of Systems Constitutional: DENIES: Fever, Chills Eyes: DENIES: Blurred vision, Diplopia Ears, nose, mouth, throat: DENIES: Tinnitus, Hearing loss Respiratory: DENIES: Cough, Shortness of breath Cardiovascular: COMPLAINS OF: Chest pain (cp on and off. cp with walking. 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) Hypertension Type 2 diabetes Severe Anemia Non compliance Past Surgical History Left forearm fistula Reported Medications Reported Meds & Active Scripts Active Hydralazine (Hydralazine HCl) 50 Mg Tab 75 Mg PO BID Coreg (Carvedilol) 12.5 Mg Tab 25 Mg PO Q12HR Metoprolol Succinate ER 24 HR (Metoprolol Succinate) 50 Mg Tab 50 Mg PO HS Clonidine (Clonidine HCl) 0.2 Mg Tab 0.2 Mg PO BID Protonix (Pantoprazole Sodium) 40 Mg Tab 40 Mg PO DAILY Nifedipine ER 24 HR (Nifedipine) 60 Mg Tab 60 Mg PO BID Amlodipine (Amlodipine Besylate) 10 Mg Tab 10 Mg PO DAILY Lortab (Hydrocodone-Acetaminophen) 5-325 Mg Tab 1 Tab PO Q6H PRN Reported Aspirin Adult Low Strength (Aspirin) 81 Mg Tabdr 81 Mg PO DAILY Vitamin B-12 (Cyanocobalamin) 1,000 Mcg Tab 1,000 Mcg PO DAILY Glyburide 5 Mg Tab 5 Mg PO DAILY Take with meals at the same time each day Renvela (Sevelamer Carbonate) 800 Mg Tab 800 Mg PO TID Take with meals (Yash Masters MD R2) Allergies: Coded Allergies: No Known Allergies (Unverified , 04/08/16) Active Ordered Medications Active Medications Morphine Sulfate (Morphine Inj) 2 mg ONCE ONCE IV PUSH Last administered on t 08:; Admin Dose 2 MG; Start 06/19/16 at 08:00; Stop 06/19/16 at 08:01 ; Status DC Ondansetron HCl (Zofran Inj) 4 mg ONCE ONCE IV PUSH Last administered on t 08:; Admin Dose 4 MG; Start 06/19/16 at 08:00; Stop 06/19/16 at 08:01; Status DC Sodium Chloride (NS Flush) 2 ml UNSCH PRN IV FLUSH; Start 06/19/16 at 07:30 Family History Unknown. Poor historian. Social History Patient is originally from [place]. She has been to her , Bandar, for approximately 10 years. Ryanne has no children. Ryanne and her moved to [place] approximately 2-3 months ago because her wanted to get away from the cold. She states she lives in a house with her and dogs. No smoking. No alcohol. No illicit drugs (Yash Masters MD R2) Physical Exam Vital Signs Vital Signs Date Time Temp Pulse Resp B/P Pulse Ox O2 Delivery O2 Flow Rate FiO2 06/19/16 07:40 98.1 65 16 158/84 97 Physical Exam GENERAL: This is an obese, disheveled-appearing female with noticeable odor SKIN: No rashes, ecchymoses or lesions. Cool and dry. HEAD: Atraumatic. Normocephalic. No temporal or scalp tenderness. EYES: Pupils equal round and reactive. Extraocular motions intact. No scleral icterus. No injection or drainage. ENT: Nose without bleeding, purulent drainage or septal hematoma. Throat without erythema, tonsillar hypertrophy or exudate. Uvula midline. Airway patent. NECK: Trachea midline. No JVD or lymphadenopathy. Supple, nontender, no meningeal signs. CARDIOVASCULAR: Regular rate and rhythm without murmurs, gallops, or rubs. RESPIRATORY: Clear to auscultation. Breath sounds equal bilaterally. No wheezes , rales, or rhonchi. GASTROINTESTINAL: Soft, tender to palpation in the lower quadrant, positive bowel sounds. No rebound or guarding. MUSCULOSKELETAL: Extremities without clubbing, cyanosis, or edema. No joint tenderness, effusion, or edema noted. No calf tenderness. Negative Homans sign bilaterally. NEUROLOGICAL: Awake and alert. Cranial nerves II through XII intact. Motor and sensory grossly within normal limits. Five out of 5 muscle strength in all muscle groups. Normal Laboratory Laboratory Tests Test 06/19/16 07:50 White Blood Count 8.1 Red Blood Count 2.85 Hemoglobin 8.6 Hematocrit 25.3 Mean Corpuscular Volume 88.6 Mean Corpuscular Hemoglobin 30.1 Mean Corpuscular Hemoglobin 33.9 Concent Red Cell Distribution Width 17.8 Platelet Count 254 Mean Platelet Volume 8.6 Neutrophils (%) (Auto) 70.3 Lymphocytes (%) (Auto) 12.9 Monocytes (%) (Auto) 8.7 Eosinophils (%) (Auto) 7.3 Basophils (%) (Auto) 0.8 Neutrophils # (Auto) 5.7 Lymphocytes # (Auto) 1.0 Monocytes # (Auto) 0.7 Eosinophils # (Auto) 0.6 Basophils # (Auto) 0.1 CBC Comment DIFF FINAL Differential Comment Prothrombin Time 10.4 Prothromb Time International 0.9 Ratio Activated Partial 18.7 Thromboplast Time Sodium Level 135 Potassium Level 4.0 Chloride Level 97 Carbon Dioxide Level 25.8 Anion Gap 12 Blood Urea Nitrogen 49 Creatinine 8.84 Estimat Glomerular Filtration 5 Rate Random Glucose 261 Calcium Level 8.8 Total Bilirubin 0.6 Aspartate Amino Transf 9 (AST/SGOT) Alanine Aminotransferase 16 (ALT/SGPT) Alkaline Phosphatase 88 Total Protein 7.3 Albumin 3.5 Lipase 192 (Yash Masters MD R2) Result Diagram: 06/19/1674906/19/16749 Imaging Last Impressions Abdomen/Pelvis CT 06/19/16756 Signed Impressions: Service Date/Time: , June 19, 2016 08:37 - CONCLUSION: 1. Indistinctness and mild soft tissue changes in the mesentery adjacent to the head of the pancreas. This could indicate mild pancreatitis. 2. The gallbladder is unremarkable in appearance with no evidence of calcified stones. 3. Atrophic kidneys with scarring on the right. 4. Moderate cardiomegaly noted. Truong Robledo MD (Yash Masters MD R2) Assessment and Plan Assessment and Plan 56-year-old patient with history of anemia, noncompliance, severe hypertension, end-stage renal disease presents with abdominal pain found to have evidence of possible pancreatitis on CT scan. Admission for IV fluids, pain control. Code Status Full Discussed Condition With Dr. Guevara. (Yash Masters MD R2) Attending Attestation THIS CASE WAS DISCUSSED WITH THE RESIDENT PHYSICIANS. I HAVE REVIEWED THE RECORD AND AGREE WITH THE ABOVE NOTE AND PLAN OF CARE WAS DISCUSSED. I HAVE AUTHORIZED THE ORDER FOR ADMISSION TO AN IN-PATIENT STATUS. (Simeon Guevara MD) Problem List: (1) Pancreatitis Status: Acute Plan: CT scan shows possible evidence of pancreatitis. Lipase 192 Mathieu criteria: 1 point for glc >200 (good prognosis) Nothing by mouth except meds Lactated Ringer's 200 mL's per hour Tylenol pain 1-6, Dilaudid 1 mg IV every 3 hours when necessary pain (no NSAIDs with end-stage renal disease) Repeat labs in the a.m., including lipase Etiology unknown: -Check alcohol level -CT does not reveal gallstones -Questionable medication component but not likely -Triglycerides less than 500 (2) Anemia Status: Acute Plan: Patient has history of severe anemia, as low as 4 on a previous admission. She was given 2 units packed red blood cells on her last admission. She is willing to undergo EGD colonoscopy on this admission. GI consult Follow CBC Transfuse as necessary IV Protonix 40 mg (3) ESRD (end stage renal disease) Status: Acute Plan: Nephrology consulted Careful with nephrotoxic agents (4) Hypertension Status: Acute Plan: Continue home meds: coreg 25 mg q12, clonidine 0.2 mg po bid, hydralazine 75 mg po bid, metoprolol 50 po hs, amlodipine 10 po daily (5) Non-compliance Status: Acute Plan: Counseled importance of PCP follow up and taking meds. She acknowledges that she will from now on. (6) Diabetes mellitus Status: Acute Plan: Hold home glyburide SSI with accuchecks (7) FEN/PPX Status: Acute Plan: Fluids: LR at 200 ml/hr Electrolytes: monitor and replace prn Nutrition: NPO except meds; adv diet as tolerated by pain PPX: no heparin with anemia possibly from GI source. SCDs bilaterally -Protonix as above (Yash Masters MD R2) Physician Certification 2 Midnight Certification Type: Admission for Inpatient Services Order for Inpatient Services The services are ordered in accordance with Medicare regulations or non- Medicare payer requirements, as applicable. In the case of services not specified as inpatient-only, they are appropriately provided as inpatient services in accordance with the 2-midnight benchmark. Estimated LOS (days): 2 days is the estimated time the patient will need to remain in the hospital, assuming treatment plan goals are met and no additional complications. Post-Hospital Plan: Not yet determined (Yash Masters MD R2) Problem Qualifiers (1) Pancreatitis: Qualified Code: K85.80 - Other acute pancreatitis, unspecified complication status (2) Anemia: Qualified Code: D64.9 - Anemia, unspecified type (3) Diabetes mellitus: Qualified Code: E11.8 - Type 2 diabetes mellitus with complication, without long-term current use of insulin Yash Masters MD R2 Jun 19, 2016 10:02 Simeon Guevara MD Jun 19, 2016 15:24
[2016-06-19] MEDS ORDERED: NALOXONE HCL 0.4 MG/ML AMP IV PRN (11:00)
[2016-06-19] MEDS ORDERED: HEPARIN SODIUM - SQ 10,000 UNITS/ML VIAL SQ SCH (11:00)
[2016-06-19] MEDS ORDERED: TEMAZEPAM 15 MG CAP PO PRN (11:00)
[2016-06-19] MEDS ORDERED: ONDANSETRON HCL 4 MG/2 ML VIAL IVP PRN (11:00)
[2016-06-19] MEDS ORDERED: HYDROmorphone HCL PF 1 MG/ML VIAL IV PRN (11:00)
[2016-06-19] MEDS ORDERED: DEXTROSE 50% IN WATER 50 ML VIAL(D50) IV PUSH PRN (11:15)
[2016-06-19] MEDS ORDERED: GLUCAGON 1 MG/ML VIAL OTHER PRN (11:15)
[2016-06-19] MEDS ORDERED: LACTATED RINGER'S 1000 ML INJ 1,000 ML IV SCH (11:30)
[2016-06-19] MEDS ORDERED: ACETAMINOPHEN 325 MG TAB PO PRN ×2 (11:30→13:45)
[2016-06-19] MEDS: PANTOPRAZOLE SODIUM 40 MG VIAL IV PUSH SCH (11:58)
[2016-06-19 12:00] VITALS: BP 180/82; PULSE 70; RESP 17; O2SAT 96
[2016-06-19] MEDS: SEVELAMER CARBONATE 800 MG TAB PO SCH (12:50)
[2016-06-19] MEDS ORDERED: GELATIN 12 MM/7 MM FOAM TOPICAL PRN (13:45)
[2016-06-19] MEDS ORDERED: MANNITOL 12.5 GM/50 ML VIAL IV PRN (13:45)
[2016-06-19] MEDS ORDERED: ONDANSETRON HCL 4 MG/2 ML VIAL IV PRN (13:45)
[2016-06-19] MEDS ORDERED: diphenhydrAMINE HCL 25 MG CAP PO PRN (13:45)
[2016-06-19] MEDS ORDERED: ALBUMIN HUMAN 25% 25 GM/100 ML BAGP IV PRN (13:45)
[2016-06-19] MEDS ORDERED: GENTAMICIN SULFATE (DIALYSIS USE ONLY) 20 MG/2 ML VIAL OTHER PRN (13:45)
[2016-06-19] MEDS ORDERED: SODIUM CHLOR 0.9% 1000 ML IV PRN ×2 (13:45)
[2016-06-19] MEDS ORDERED: HEPARIN SODIUM - IV 10,000 UNITS/10 ML VIAL IV FLUSH PRN (13:45)
[2016-06-19] MEDS ORDERED: NS 250 ML IV PRN (13:45)
[2016-06-19] MEDS ORDERED: NITROGLYCERIN 0.4 MG SL 25 TABS/BTL SL PRN (13:45)
[2016-06-19] MEDS ORDERED: HEPARIN SODIUM - IV 10,000 UNITS/10 ML VIAL OTHER PRN (13:45)
[2016-06-19] MEDS ORDERED: cloNIDine HCL 0.1 MG TAB PO PRN (13:45)
--- NOTE | 2016-06-19 14:11 | PD.CONS ---
HPI History of Present Illness This is a 56 year old female with ESRD, on HD on Mondays, Wednesdays, and Fridays who has had several recent hospitalizations for severe anemia. She was hospitalized from 05/24-05/30 for severe anemia (hemoglobin of 4.3 on admission). She was seen by our service at that time and EGD/Colonoscopy was recommended, but she refused on multiple occasions. She was discharged from the hospital on 05/30, but returned for high blood pressure on 06/16. We evaluated her again on for anemia and recommended and EGD/Colonoscopy, but she refused again. She was discharged home but returned to the ER with complaints of abdominal pain. She states that she started having an intermittent epigastric/mid abdominal pain described as a stabbing pain suddenly last night. There are no aggravating or alleviating factors. She denies this pain being related to food. She denies any fevers, chills, nausea, vomiting, diarrhea, constipation, melena, or hematochezia. She came to the ER and was noted to have HH of 8.6/ 25.3. Lipase 192. LFTs within normal limits. Abdomen/Pelvis CT (06/19/16)---- > 1. Indistinctness and mild soft tissue changes in the mesentery adjacent to the head of the pancreas. This could indicate mild pancreatitis. 2. The gallbladder is unremarkable in appearance with no evidence of calcified stones. 3. Atrophic kidneys with scarring on the right. 4. Moderate cardiomegaly noted. She reports that she is now agreeable to have the egd/colonoscopy. (Renu Bennett) PFS Past Medical History Severe anemia ESRD, on HD M-W-F HTN Type 2 DM Past Surgical History Left forearm fistula (Renu Bennett) Coded Allergies: No Known Allergies (Unverified , 04/08/16) Medications Allergies Coded Allergies Type Severity Reaction Last Updated Verified No Known Allergies 04/08/16 No Active Scripts Medications Dose Route/Sig Days Date Category Dose Instructions Hydralazine (Hydralazine HCl) 50 Mg Tab 75 Mg PO BID 06/18/16 Rx Coreg (Carvedilol) 12.5 Mg Tab 25 Mg PO Q12HR 06/18/16 Rx Metoprolol Succinate ER 24 HR (Metoprolol Succinate) 50 Mg Tab 50 Mg PO HS 06/18/16 Rx Clonidine (Clonidine HCl) 0.2 Mg Tab 0.2 Mg PO BID 05/30/16 Rx Protonix (Pantoprazole Sodium) 40 Mg Tab 40 Mg PO DAILY 05/30/16 Rx Nifedipine ER 24 HR (Nifedipine) 60 Mg Tab 60 Mg PO BID 05/30/16 Rx Aspirin Adult Low Strength (Aspirin) 81 Mg Tabdr 81 Mg PO DAILY 05/24/16 Reported Vitamin B-12 (Cyanocobalamin) 1,000 Mcg Tab 1,000 Mcg PO DAILY 05/24/16 Reported Amlodipine (Amlodipine Besylate) 10 Mg Tab 10 Mg PO DAILY 04/25/16 Rx Lortab (Hydrocodone-Acetaminophen) 5-325 Mg Tab 1 Tab PO Q6H PRN 04/25/16 Rx Glyburide 5 Mg Tab 5 Mg PO DAILY 04/08/16 Reported Take with meals at the same time each day Renvela (Sevelamer Carbonate) 800 Mg Tab 800 Mg PO TID 04/08/16 Reported Take with meals Family History Pt denies any family hx of cancer. Social History Denies the use of tobacco, etoh, or illicit drug use. (Renu Bennett ) Review of Systems Constitutional: COMPLAINS OF: Fatigue, DENIES: Fever, Weight loss, Chills Respiratory: DENIES: Cough Cardiovascular: DENIES: Chest pain Gastrointestinal: COMPLAINS OF: Abdominal pain, DENIES: Black stools, Bloody stools, Constipation, Diarrhea, Nausea, Difficulty Swallowing, Anorexia, Heartburn, Hematemesis Musculoskeletal: COMPLAINS OF: Joint pain Integumentary: DENIES: Abnormal pigmentation Hematologic/lymphatic: DENIES: Bruising Neurologic: DENIES: Headache Psychiatric: DENIES: Confusion (Renu Bennett) GI Exam Vitals I&O Vital Signs Date Time Temp Pulse Resp B/P Pulse Ox O2 Delivery O2 Flow Rate FiO2 06/19/16 12:00 70 17 180/82 96 Room Air 06/19/16 08:32 15 06/19/16 07:40 98.1 65 16 158/84 97 Imaging Last Impressions Abdomen/Pelvis CT 06/19/16 0757 Signed Impressions: Service Date/Time: May 08:37 - CONCLUSION: 1. Indistinctness and mild soft tissue changes in the mesentery adjacent to the head of the pancreas. This could indicate mild pancreatitis. 2. The gallbladder is unremarkable in appearance with no evidence of calcified stones. 3. Atrophic kidneys with scarring on the right. 4. Moderate cardiomegaly noted. Truong Robledo MD Laboratory Test 06/19/16 07:50 White Blood Count 8.1 TH/MM3 Red Blood Count 2.85 MIL/MM3 Hemoglobin 8.6 GM/DL Hematocrit 25.3 % Mean Corpuscular Volume 88.6 FL Mean Corpuscular Hemoglobin 30.1 PG Mean Corpuscular Hemoglobin 33.9 % Concent Red Cell Distribution Width 17.8 % Platelet Count 254 TH/MM3 Mean Platelet Volume 8.6 FL Neutrophils (%) (Auto) 70.3 % Lymphocytes (%) (Auto) 12.9 % Monocytes (%) (Auto) 8.7 % Eosinophils (%) (Auto) 7.3 % Basophils (%) (Auto) 0.8 % Neutrophils # (Auto) 5.7 TH/MM3 Lymphocytes # (Auto) 1.0 TH/MM3 Monocytes # (Auto) 0.7 TH/MM3 Eosinophils # (Auto) 0.6 TH/MM3 Basophils # (Auto) 0.1 TH/MM3 CBC Comment DIFF FINAL Differential Comment Prothrombin Time 10.4 SEC Prothromb Time International 0.9 RATIO Ratio Activated Partial 18.7 SEC Thromboplast Time Sodium Level 135 MEQ/L Potassium Level 4.0 MEQ/L Chloride Level 97 MEQ/L Carbon Dioxide Level 25.8 MEQ/L Anion Gap 12 MEQ/L Blood Urea Nitrogen 49 MG/DL Creatinine 8.84 MG/DL Estimat Glomerular Filtration 5 ML/MIN Rate Random Glucose 261 MG/DL Calcium Level 8.8 MG/DL Total Bilirubin 0.6 MG/DL Aspartate Amino Transf 9 U/L (AST/SGOT) Alanine Aminotransferase 16 U/L (ALT/SGPT) Alkaline Phosphatase 88 U/L Total Protein 7.3 GM/DL Albumin 3.5 GM/DL Lipase 192 U/L Physical Examination HEENT: Normocephalic; atraumatic; no jaundice. CHEST: CTA CARDIAC: RRR ABDOMEN: Soft, obese, nondistended, nontender; no hepatosplenomegaly; bowel sounds are present in all four quadrants. EXTREMITIES: No clubbing, cyanosis, or edema. SKIN: Normal; no rash; no jaundice. MARKETING SUPPORT COORDINATOR: No focal deficits; alert and oriented times three. (Renu Bennett) Assessment and Plan Plan ASSESSMENT: - Abdominal pain. Sudden onset of sharp mid abdominal pain that is intermittent without any aggravating or alleviating factors. Lipase 192. LFTs within normal limits. Abdomen/Pelvis CT (06/19/16)----> 1. Indistinctness and mild soft tissue changes in the mesentery adjacent to the head of the pancreas. This could indicate mild pancreatitis. 2. The gallbladder is unremarkable in appearance with no evidence of calcified stones. 3. Atrophic kidneys with scarring on the right. 4. Moderate cardiomegaly noted. Unclear if this is a true pancreatitis or possibly some duodenitis. She reports that she is now agreeable to have the egd/colonoscopy. - Anemia. She's had several recent hospitalizations for severe anemia. She was hospitalized from 05/24-05/30 for severe anemia (hemoglobin of 4.3 on admission). She was seen by our service at that time and EGD/Colonoscopy was recommended, but she refused on multiple occasions. She was discharged from the hospital on , but returned for high blood pressure on 06/16 and we again offered evaluation with EGD/Colonoscopy, but she refused again. She was discharged, but returned with abdominal pain. She is now agreeable for EGD/Colonoscopy. .3. - ESRD, HD Mondays, Wednesdays, and Fridays. Per renal - Uncontrolled HTN. Per primary. Clonidine, Coreg, Apresoline, Procardia, Toprol, Norvasc. PLAN: - Plan for egd/colonoscopy - Obtain consents - Clear liquids - NPO after MN - Golytely prep - PPI - Monitor HH - Transfuse as necessary - FUrther recommendations to follow based on results of above - Pt seen and examined by Dr. Baptiste and myself and this note is written on his behalf (Renu Bennett) Physician Comments Seen and examined Agree with above Continue with current supportive care Monitor labs Plan for an EGD and a colonoscopy tomorrow (Mohit Baptiste MD) Renu Bennett Jun 19, 2016 14:11 Mohit Baptiste MD Jun 19, 2016 23:18
--- NOTE | 2016-06-19 15:23 | HHI.HP ---
[facility] Service Family Medicine Primary Care Physician No Primary Care Physician Admission Diagnosis mild pancreatitis/abdominal pain Diagnoses: (1) Pancreatitis (2) Anemia (3) ESRD (end stage renal disease) (4) Hypertension (5) Non-compliance (6) Diabetes mellitus (7) FEN/PPX International Travel<30 Days: No Contact w/Intl Traveler<30days: No Known Affected Area: No History of Present Illness 56-year-old female presenting to the emergency department with generalized malaise and epigastric abdominal pain that began yesterday evening. She was recently hospitalized for hypertensive urgency and requiring dialysis from 06/16 through 06/18 and discharged home. She states that prior to discharge, she did eat lunch in the hospital and then was at home just sitting on her couch watching TV when she developed a sharp, constant epigastric pain. She denies eating dinner prior to this pain. The pain did subside somewhat so that she was able to fall asleep, however was still present this morning so she presented to the emergency department for further evaluation. At her previous hospitalization, she was noted to have extremely high blood pressure and was found to be noncompliant on her multiple blood pressure medications. She was restarted on her home blood pressure medications and was noted to have normal blood pressure prior to discharge. She also was found to be significantly anemic and was transfused 2 units PRBCs with a hemoglobin of 8.6 on discharge. She was evaluated by gastroenterology who recommended an EGD and colonoscopy, however she refused to have these done. She has been noted to have significant anemia several times in the past, and has repetitively refused workup with EGD/colonoscopy. However, at this hospital presentation she states that she would like to have this done as she feels that this could be part of the reason why she feels so poorly. She does endorse nausea but denies any emesis. She has not eaten anything since this abdominal pain started. She had a bowel movement this morning that she describes as normal, brown in color without evidence of melena or hematochezia. She also endorses some substernal chest discomfort that is intermittent and sharp in nature. This is relatively chronic in nature and has not changed in intensity or presentation. Review of Systems Constitutional: COMPLAINS OF: Fatigue, Dizziness, DENIES: Fever, Chills Eyes: DENIES: Blurred vision, Double Vision Ears, nose, mouth, throat: DENIES: Throat pain, Ear Pain Respiratory: COMPLAINS OF: Shortness of breath, DENIES: Cough, Wheezing, Sputum production Cardiovascular: COMPLAINS OF: Chest pain, Dyspnea on Exertion, DENIES: Palpitations, Syncope, Lower Extremity Edema Gastrointestinal: COMPLAINS OF: Abdominal pain, Nausea, DENIES: Black stools, Bloody stools, Constipation, Diarrhea, Vomiting, Difficulty Swallowing Musculoskeletal: COMPLAINS OF: Joint pain, Muscle aches, Back pain Past Family Social History Past Medical History End-stage renal disease on hemodialysis (data administrator is Dr. Rubio) Hypertension Type 2 diabetes Severe Anemia Non compliance Past Surgical History Left forearm fistula Allergies: Coded Allergies: No Known Allergies (Unverified , 04/08/16) Family History Unknown. Poor historian. Social History Patient is originally from [place]. She has been to her , Miah, for approximately 10 years. Ryanne has no children. Ryanne and her moved to [place] approximately 2-3 months ago because her wanted to get away from the cold. She states she lives in a house with her and dogs. No smoking. No alcohol. No illicit drugs Physical Exam Vital Signs Vital Signs Date Time Temp Pulse Resp B/P Pulse Ox O2 Delivery O2 Flow Rate FiO2 06/19/16 12:00 70 17 180/82 96 Room Air 06/19/16 08:32 15 06/19/16 07:40 98.1 65 16 158/84 97 Physical Exam GENERAL: This is an obese, disheveled-appearing female sitting up and moving around in bed without obvious discomfort SKIN: No rashes, ecchymoses or lesions. Cool and dry. NECK: Trachea midline. No JVD or lymphadenopathy. CARDIOVASCULAR: Regular rate and rhythm with 2/6 systolic murmur RESPIRATORY: Scattered expiratory wheezes without overt rhonchi or crackles GASTROINTESTINAL: Obese, soft, tender to palpation in epigastric and right upper quadrant as well as right lower quadrant. No rebound tenderness MUSCULOSKELETAL: Extremities without clubbing, cyanosis, or edema. NEUROLOGICAL: Awake and alert. Laboratory Laboratory Tests Test 06/19/16 07:50 White Blood Count 8.1 Red Blood Count 2.85 Hemoglobin 8.6 Hematocrit 25.3 Mean Corpuscular Volume 88.6 Mean Corpuscular Hemoglobin 30.1 Mean Corpuscular Hemoglobin 33.9 Concent Red Cell Distribution Width 17.8 Platelet Count 254 Mean Platelet Volume 8.6 Neutrophils (%) (Auto) 70.3 Lymphocytes (%) (Auto) 12.9 Monocytes (%) (Auto) 8.7 Eosinophils (%) (Auto) 7.3 Basophils (%) (Auto) 0.8 Neutrophils # (Auto) 5.7 Lymphocytes # (Auto) 1.0 Monocytes # (Auto) 0.7 Eosinophils # (Auto) 0.6 Basophils # (Auto) 0.1 CBC Comment DIFF FINAL Differential Comment Prothrombin Time 10.4 Prothromb Time International 0.9 Ratio Activated Partial 18.7 Thromboplast Time Sodium Level 135 Potassium Level 4.0 Chloride Level 97 Carbon Dioxide Level 25.8 Anion Gap 12 Blood Urea Nitrogen 49 Creatinine 8.84 Estimat Glomerular Filtration 5 Rate Random Glucose 261 Calcium Level 8.8 Total Bilirubin 0.6 Aspartate Amino Transf 9 (AST/SGOT) Alanine Aminotransferase 16 (ALT/SGPT) Alkaline Phosphatase 88 Total Protein 7.3 Albumin 3.5 Lipase 192 Result Diagram: 06/19/16 0750 06/19/16 0750 Imaging Last Impressions Abdomen/Pelvis CT 06/19/16 0757 Signed Impressions: Service Date/Time: May 08:37 - CONCLUSION: 1. Indistinctness and mild soft tissue changes in the mesentery adjacent to the head of the pancreas. This could indicate mild pancreatitis. 2. The gallbladder is unremarkable in appearance with no evidence of calcified stones. 3. Atrophic kidneys with scarring on the right. 4. Moderate cardiomegaly noted. Truong Robledo MD Assessment and Plan Assessment and Plan 56-year-old patient with history of anemia, noncompliance, severe hypertension, end-stage renal disease presents with abdominal pain found to have evidence of possible pancreatitis on CT scan. Admission for IV fluids, pain control. Problem List: (1) Pancreatitis Status: Acute Plan: CT scan shows possible evidence of pancreatitis. - Lipase 192 Bartlett criteria: 1 point for glc >200 (good prognosis) Nothing by mouth except meds Lactated Ringer's 200 mL's per hour Pain control with Dilaudid 1 mg IV every 3 hours when necessary pain (no NSAIDs with end-stage renal disease) Repeat labs in the a.m., including lipase Etiology unknown: -Check alcohol level -CT does not reveal gallstones -Questionable medication component but not likely -Triglycerides checked on 4/4/17 and was noted to be 235 (2) Anemia Status: Acute Plan: Patient has history of severe anemia with anemia of 4.3 earlier this month - Patient was transfused 2 units packed red blood cells on her last admission () Hemoglobin was 8.6 at the time of discharge, stable at 8.6 on presentation today She is willing to undergo EGD colonoscopy on this admission - GI consult placed, we did have a very miah discussion with this patient the procedure would need to be done if we place consult Follow CBC Transfuse as necessary IV Protonix 40 mg (3) ESRD (end stage renal disease) Status: Acute Plan: Nephrology consulted - she is on dialysis Thursday//Thursday AV fistula in left forearm Careful with nephrotoxic agents (4) Hypertension Status: Acute Plan: Patient known to be noncompliant with medications She did not fill prescriptions for medications upon discharge yesterday from the hospital, therefore did not get any of her evening or morning medications Restart home medications as below: Carvedilol 25 mg q12 clonidine 0.2 mg po bid hydralazine 75 mg po bid metoprolol 50 po hs amlodipine 10 po daily (5) Non-compliance Status: Acute Plan: Counseled importance of PCP follow up and taking meds. She acknowledges that she will from now on. (6) Diabetes mellitus Status: Acute Plan: Hold home glyburide SSI with accuchecks (7) FEN/PPX Status: Acute Plan: Fluids: LR at 200 ml/hr Electrolytes: monitor and replace prn Nutrition: NPO except meds; adv diet as tolerated by pain PPX: no heparin with anemia possibly from GI source. SCDs bilaterally -Protonix as above Physician Certification 2 Midnight Certification Type: Admission for Inpatient Services Order for Inpatient Services The services are ordered in accordance with Medicare regulations or non- Medicare payer requirements, as applicable. In the case of services not specified as inpatient-only, they are appropriately provided as inpatient services in accordance with the 2-midnight benchmark. Estimated LOS (days): 2 2 days is the estimated time the patient will need to remain in the hospital, assuming treatment plan goals are met and no additional complications. Post-Hospital Plan: Not yet determined Problem Qualifiers (1) Pancreatitis: Qualified Code: K85.80 - Other acute pancreatitis, unspecified complication status (2) Anemia: Qualified Code: D64.9 - Anemia, unspecified type (3) Diabetes mellitus: Qualified Code: E11.8 - Type 2 diabetes mellitus with complication, without long-term current use of insulin Simeon Guevara MD Jun 19, 2016 15:23
[2016-06-19 15:45] VITALS: O2SAT 100
[2016-06-19] MEDS ORDERED: PEG (High)/E-LYTE SOLN 4000 ML BTL PO ONE (17:00)
--- NOTE | 2016-06-19 17:07 | PD.CONS ---
[facility] Service Nephrology Reason for Consult Known ESRD Primary Care Physician No Primary Care Physician History of Present Illness 56-year-old female with a history of hypertension diabetes mellitus as well as end-stage renal disease on maintenance hemodialysis. Patient was originally from [place] now living locally. Presented today with complaint of sudden onset of epigastric abdominal pain on her way to outpatient HD. Denies any NVDC. Has been seen here on multiple occasions for anemia and has previously been refusing EGD/colonoscopy up until this admission. Lipase normal, but CT scan shows potential inflammation in pancreatic head. Currently has mild pain, but improved since IV medication. Patient receives dialysis as an outpatient on Tuesdays, and Saturdays. Should be noted that the patient was provided with written notice directly of termination from my practice on June 10, 2016 with provision for 30 days of emergent care if required. Patient informed me she has not yet established with another cold working supervisor. She was advised again that I will not be available after the above-mentioned timeframe to provide nephrology services to her and of the importance of establishing with another cold working supervisor prior to the provision mentioned above. She was advised that she had a life-threatening condition if untreated. (Esperanza Morgan) Review of Systems Gastrointestinal: COMPLAINS OF: Abdominal pain (Esperanza Morgan) Past Family Social History Allergies: Coded Allergies: No Known Allergies (Unverified , 04/08/16) Past Medical History ESRD on HD DM HTN Anemia of renal disease Medical non-compliance Past Surgical History Placement of AV dialysis fistula left upper extremity. Reported Medications Reported Meds & Active Scripts Active Hydralazine (Hydralazine HCl) 50 Mg Tab 75 Mg PO BID Coreg (Carvedilol) 12.5 Mg Tab 25 Mg PO Q12HR Metoprolol Succinate ER 24 HR (Metoprolol Succinate) 50 Mg Tab 50 Mg PO HS Clonidine (Clonidine HCl) 0.2 Mg Tab 0.2 Mg PO BID Protonix (Pantoprazole Sodium) 40 Mg Tab 40 Mg PO DAILY Nifedipine ER 24 HR (Nifedipine) 60 Mg Tab 60 Mg PO BID Amlodipine (Amlodipine Besylate) 10 Mg Tab 10 Mg PO DAILY Lortab (Hydrocodone-Acetaminophen) 5-325 Mg Tab 1 Tab PO Q6H PRN Reported Aspirin Adult Low Strength (Aspirin) 81 Mg Tabdr 81 Mg PO DAILY Vitamin B-12 (Cyanocobalamin) 1,000 Mcg Tab 1,000 Mcg PO DAILY Glyburide 5 Mg Tab 5 Mg PO DAILY Take with meals at the same time each day Renvela (Sevelamer Carbonate) 800 Mg Tab 800 Mg PO TID Take with meals Active Ordered Medications Current Medications Medications (Trade) Dose Ordered Sig/Shaun Route Start Time Stop Time Status Last Admin (NS Flush) 2 ml UNSCH PRN IV FLUSH 06/19/16 11:00 (NS Flush) 2 ml BID IV FLUSH 06/19/16 21:00 (Zofran Inj) 4 mg Q6H PRN IVP 06/19/16 11:00 (Restoril) 15 mg HS PRN PO 06/19/16 11:00 Naloxone HCl 0.4 mg 0.4 mg UNSCH PRN IV 06/19/16 11:00 (Lr 1000 ml Inj) 1,000 ml @ 205 mls/hr Q4H53M IV 06/19/16 11:30 06/19/16 11:30 (Dilaudid Pf Inj) 1 mg Q3H PRN IV 06/19/16 11:00 (D50w (Vial) Inj) 25 ml UNSCH PRN IV PUSH 06/19/16 11:15 (Glucagon Inj) 1 mg UNSCH PRN OTHER 06/19/16 11:15 (Protonix Inj) 40 mg Q24H IV PUSH 06/19/16 12:00 06/19/16 11:58 (Norvasc) 10 mg DAILY PO 06/19/16 13:00 06/19/16 12:50 (Coreg) 25 mg Q12HR PO 06/19/16 21:00 (Catapres) 0.2 mg BID PO 06/19/16 21:00 (Apresoline) 75 mg BID PO 06/19/16 21:00 (Toprol Xl) 50 mg HS PO 06/20/16 21:00 (Procardia Xl) 60 mg BID PO 06/19/16 21:00 (Renvela) 800 mg TID PO 06/19/16 13:00 06/19/16 12:50 Acetaminophen 650 mg 650 mg Q4H PRN PO 06/19/16 11:30 (NS 1000 ml Inj) 1,000 ml @ 0 mls/hr TITRATE PRN IV 06/19/16 13:45 Heparin Sodium (Porcine) 8000 units 8,000 units UNSCH PRN IV FLUSH 06/19/16 13:45 Sodium Chloride 1,000 ml @ 200 mls/hr Q5H PRN IV 06/19/16 13:45 (NS 250 ml Inj) 200 ml @ 0 mls/hr UNSCH PRN IV 06/19/16 13:45 (Mannitol Inj) 12.5 gm UNSCH PRN IV 06/19/16 13:45 (Albumin 25% Inj) 25 gm UNSCH PRN IV 06/19/16 13:45 (NS Flush) 5 ml UNSCH PRN IV FLUSH 06/19/16 13:45 (Heparin Inj) Dwell Heparin to f... UNSCH PRN OTHER 06/19/16 13:45 (Gentamicin (Dialysis) Inj) 10 mg UNSCH PRN OTHER 06/19/16 13:45 (Gelfoam 12 Mm/7 Mm Top) 1 foam UNSCH PRN TOPICAL 06/19/16 13:45 (Zofran Inj) 4 mg UNSCH PRN IV 06/19/16 13:45 (Tylenol) 650 mg UNSCH PRN PO 06/19/16 13:45 (Benadryl) 25 mg UNSCH PRN PO 06/19/16 13:45 (Nitrostat Sl) 0.4 mg UNSCH PRN SL 06/19/16 13:45 (Catapres) 0.1 mg UNSCH PRN PO 06/19/16 13:45 (Epogen Inj) 8,000 units UNSCH PRN IV 06/19/16 15:30 (Colyte Liq) 4,000 ml ONCE ONCE PO 06/19/16 17:00 06/19/16 17:01 Family History Noncontributory Social History Lives locally with her Denies tobacco use, no illicits, no EtOH (Esperanza Morgan) Physical Exam Vital Signs Vital Signs Date Time Temp Pulse Resp B/P Pulse Ox O2 Delivery O2 Flow Rate FiO2 06/19/16 15:45 100 Nasal Cannula 1.00 06/19/16 12:00 70 17 180/82 96 Room Air 06/19/16 08:32 15 06/19/16 07:40 98.1 65 16 158/84 97 Physical Exam GENERAL: Pt seen on HD today. NAD. SKIN: Warm and dry. HEAD: Atraumatic. Normocephalic. EYES: Pupils equal and round. No scleral icterus. No injection or drainage. ENT: No nasal bleeding or discharge. Mucous membranes pink and moist. NECK: Trachea midline. No JVD. CARDIOVASCULAR: Regular rate and rhythm. RESPIRATORY: No accessory muscle use. Clear to auscultation. Breath sounds equal bilaterally. GASTROINTESTINAL: Abdomen soft and distended. Pain on deep palpation epigastric and RUQ. MUSCULOSKELETAL: Extremities without clubbing, cyanosis, or edema. No obvious deformities. NEUROLOGICAL: Awake and alert. Normal speech. PSYCHIATRIC: Appropriate mood and affect; insight and judgment normal. Laboratory Laboratory Tests Test 06/19/16 07:50 White Blood Count 8.1 Red Blood Count 2.85 Hemoglobin 8.6 Hematocrit 25.3 Mean Corpuscular Volume 88.6 Mean Corpuscular Hemoglobin 30.1 Mean Corpuscular Hemoglobin 33.9 Concent Red Cell Distribution Width 17.8 Platelet Count 254 Mean Platelet Volume 8.6 Neutrophils (%) (Auto) 70.3 Lymphocytes (%) (Auto) 12.9 Monocytes (%) (Auto) 8.7 Eosinophils (%) (Auto) 7.3 Basophils (%) (Auto) 0.8 Neutrophils # (Auto) 5.7 Lymphocytes # (Auto) 1.0 Monocytes # (Auto) 0.7 Eosinophils # (Auto) 0.6 Basophils # (Auto) 0.1 CBC Comment DIFF FINAL Differential Comment Prothrombin Time 10.4 Prothromb Time International 0.9 Ratio Activated Partial 18.7 Thromboplast Time Sodium Level 135 Potassium Level 4.0 Chloride Level 97 Carbon Dioxide Level 25.8 Anion Gap 12 Blood Urea Nitrogen 49 Creatinine 8.84 Estimat Glomerular Filtration 5 Rate Random Glucose 261 Calcium Level 8.8 Total Bilirubin 0.6 Aspartate Amino Transf 9 (AST/SGOT) Alanine Aminotransferase 16 (ALT/SGPT) Alkaline Phosphatase 88 Total Protein 7.3 Albumin 3.5 Lipase 192 (Esperanza Morgan) Result Diagram: 06/19/16 07506/19/16 075 Imaging Last Impressions Abdomen/Pelvis CT 06/19/16 075 Signed Impressions: Service Date/Time: May 08:37 - CONCLUSION: 1. Indistinctness and mild soft tissue changes in the mesentery adjacent to the head of the pancreas. This could indicate mild pancreatitis. 2. The gallbladder is unremarkable in appearance with no evidence of calcified stones. 3. Atrophic kidneys with scarring on the right. 4. Moderate cardiomegaly noted. Truong Robledo MD (Esperanza Morgan) Assessment and Plan Problem List: (1) End stage renal disease on dialysis Plan: Seen during HD today. Will continue on TTS schedule. Medications should be adjusted for the patient's ESRD. Avoid gadolinium. As mentioned previously, the patient has been discharged from our outpatient services and indicates that she has not yet established with a new nephrology group. She has been counselled about the importance of doing so. (2) Noncompliance w/medication treatment due to intermit use ofmedication (3) Anemia Plan: Has now consented to proceed with GI evaluation. Continue on Epogen with HD (4) Pancreatitis Plan: Potential. Will defer w/u and management to primary/GI Of note, lipase can be elevated with ESRD. Would avoid IV hydration as she is a dialysis patient that has little residual renal function. (5) Diabetes mellitus Plan: Mgmt as per primary (6) Hypertension Plan: Resume home medications. States she has not taken BP meds since her last discharge here 2 days ago. (Esperanza Morgan) Assessment and Plan The exam, history, and the medical decision-making described in the above note were completed with the assistance of the GEOVANNY. I reviewed and agree with the findings presented. (Jillian Rubio MD) Problem Qualifiers (1) Anemia: Qualified Code: D64.9 - Anemia, unspecified type (2) Pancreatitis: Qualified Code: K85.80 - Other acute pancreatitis, unspecified complication status (3) Diabetes mellitus: Qualified Code: E11.8 - Type 2 diabetes mellitus with complication, without long-term current use of insulin Esperanza Morgan Jun 19, 2016 17:07 Jillian Rubio MD Jun 20, 2016 13:16
[2016-06-19] MEDS: EPOETIN ALFA 10,000 UNITS/ML VIAL IV PRN (17:11)
[2016-06-19 20:00] VITALS: BP 207/101; PULSE 66; RESP 20; TEMP 96.8; O2SAT 94
[2016-06-19] MEDS: NIFEdipine 60 MG SUSTAINED RELEASE TAB PO SCH (20:43)
[2016-06-19] MEDS: hydrALAZINE HCL 50 MG TAB PO SCH (20:43)
[2016-06-19] MEDS: cloNIDine HCL 0.2 MG TAB PO SCH (20:43)
[2016-06-19] MEDS: CARVEDILOL 12.5 MG TAB PO SCH (20:43)
[2016-06-19] MEDS: SODIUM CHLORIDE 0.9% FLUSH 10 ML FLUSH IV FLUSH SCH (20:43)
[2016-06-19] MEDS: INSULIN ASPART SUPPLEMENTAL SCALE SQ SCH (21:00)
[2016-06-19 21:41] VITALS: O2SAT 94
[2016-06-20 00:05] VITALS: BP 152/72; PULSE 61; RESP 19; TEMP 97.2; O2SAT 95
[2016-06-20] MEDS ORDERED: SODIUM CHLORID 0.9% 500 ML IV PRN (03:15)
[2016-06-20 05:05] LABS: AUTOMATED NEUTROPHIL # 4.9 TH/MM3 (1.8-7.7); BASOPHIL # 0.1 TH/MM3 (0-0.2); BASOPHIL % 0.9 % (0.0-2.0); EOSINOPHIL # 0.5 TH/MM3 (0-0.4); EOSINOPHIL % 7.7 % (0.0-4.0); HEMATOCRIT 24.4 % (35.0-46.0); HEMO FLAGS DIFF FINAL; LYMPH % 14.6 % (9.0-44.0); MEAN CELL VOLUME 88.7 FL (80.0-100.0); MEAN CORPUSCULAR HEMOGLOBIN 29.7 PG (27.0-34.0); MEAN CORPUSCULAR HGB CONC 33.5 % (32.0-36.0); MONO % 7.6 % (0.0-8.0); NEUT % 69.2 % (16.0-70.0); PLATELET COUNT 231 TH/MM3 (150-450); RED BLOOD COUNT 2.75 MIL/MM3 (4.00-5.30); RED CELL DISTRIBUTION WIDTH 16.9 % (11.6-17.2)
[2016-06-20 05:10] LABS: BLOOD UREA NITROGEN 27 MG/DL (7-18); GLOMERULAR FILTRATION RATE 7 ML/MIN (>89)
[2016-06-20 05:11] LABS: ANION GAP 9 MEQ/L (5-15); AST (GOT) 11 U/L (15-37); BICARBONATE 31.7 MEQ/L (21.0-32.0); CHLORIDE 94 MEQ/L (98-107); POTASSIUM 4.1 MEQ/L (3.5-5.1); SODIUM (NA) 135 MEQ/L (136-145)
[2016-06-20 05:36] LABS: ALKALINE PHOSPHATASE 76 U/L (45-117); ALT (GPT) 17 U/L (10-53); TOTAL BILIRUBIN ADULT 0.8 MG/DL (0.2-1.0)
[2016-06-20] MEDS: INSULIN ASPART SUPPLEMENTAL SCALE SQ SCH ×4 (06:37→21:00)
[2016-06-20 08:03] VITALS: BP 165/80; PULSE 66; RESP 19; TEMP 97.3; O2SAT 99
[2016-06-20] MEDS: hydrALAZINE HCL 50 MG TAB PO SCH ×2 (08:06→21:47)
[2016-06-20] MEDS: CARVEDILOL 12.5 MG TAB PO SCH ×2 (08:07→21:46)
[2016-06-20] MEDS: NIFEdipine 60 MG SUSTAINED RELEASE TAB PO SCH ×2 (08:07→21:46)
[2016-06-20] MEDS: cloNIDine HCL 0.2 MG TAB PO SCH ×2 (08:07→21:47)
[2016-06-20] MEDS: SODIUM CHLORIDE 0.9% FLUSH 10 ML FLUSH IV FLUSH SCH ×2 (08:07→21:00)
--- NOTE | 2016-06-20 08:16 | HHI.FPPN ---
Subjective Remarks Patient states she is doing mildly better this morning. She continues to complain of 8 out of 10 abdominal pain, however she states is improved. She is anxious about her upcoming EGD/colonoscopy. Denies fever, chills, nausea, vomiting, shortness of breath. No headache. Objective Vitals Vital Signs Date Time Temp Pulse Resp B/P Pulse Ox O2 Delivery O2 Flow Rate FiO2 06/20/16 08:03 97.3 66 19 165/80 99 06/20/16 00:05 97.2 61 19 152/72 95 06/19/16 21:41 94 Nasal Cannula 1.00 06/19/16 20:00 96.8 66 20 207/101 94 06/19/16 15:45 100 Nasal Cannula 1.00 06/19/16 12:00 70 17 180/82 96 Room Air 06/19/16 08:32 15 I/O 06/19/16 06/19/16 06/19/16 06/20/16 06/20/16 06/20/16 07:00 15:00 23:00 07:00 15:00 23:00 Intake Total 120 ml 240 ml 0 ml Output Total 5000 ml Balance -4880 ml 240 ml 0 ml Intake Oral 120 ml 240 ml 0 ml IV Total 0 ml 0 ml Output Hemodialysis 5000 ml # Voids 0 1 # Bowel Movements 0 3 Result Diagram: 06/20/16 0359 06/20/16 0359 Objective Remarks GENERAL: This is an obese, disheveled-appearing female with noticeable odor SKIN: No rashes, ecchymoses or lesions. Cool and dry. HEAD: Atraumatic. Normocephalic. No temporal or scalp tenderness. EYES: Pupils equal round and reactive. Extraocular motions intact. No scleral icterus. No injection or drainage. ENT: Nose without bleeding, purulent drainage or septal hematoma. Throat without erythema, tonsillar hypertrophy or exudate. Uvula midline. Airway patent. NECK: Trachea midline. No JVD or lymphadenopathy. Supple, nontender, no meningeal signs. CARDIOVASCULAR: Regular rate and rhythm without murmurs, gallops, or rubs. RESPIRATORY: Clear to auscultation. Breath sounds equal bilaterally. No wheezes , rales, or rhonchi. GASTROINTESTINAL: Soft, tender to palpation in the lower quadrant, positive bowel sounds. No rebound or guarding. MUSCULOSKELETAL: Extremities without clubbing, cyanosis, or edema. No joint tenderness, effusion, or edema noted. No calf tenderness. Negative Homans sign bilaterally. NEUROLOGICAL: Awake and alert. Cranial nerves II through XII intact. Motor and sensory grossly within normal limits. Five out of 5 muscle strength in all muscle groups. A/P Assessment and Plan 56-year-old patient with history of anemia, noncompliance, severe hypertension, end-stage renal disease presents with abdominal pain found to have evidence of possible pancreatitis on CT scan. Admission for IV fluids, pain control. Discharge Planning Pending workup as below Problem List: (1) Pancreatitis Status: Acute Plan: CT scan shows possible evidence of pancreatitis. - Lipase downtrending Mathieu criteria: 1 point for glc >200 (good prognosis) Nothing by mouth except meds Lactated Ringer's 200 mL's per hour Pain control with Tylenol pain 1-5. Dilaudid 1 mg IV every 3 hours when necessary pain 6-10. (no NSAIDs with end-stage renal disease) Etiology unknown: -Alcohol Less than 3 -CT does not reveal gallstones -Questionable medication component but not likely -Triglycerides checked on 05/27/16 and was noted to be 235 (2) Anemia Status: Acute Plan: Patient has history of severe anemia with anemia of 4.3 earlier this month Patient was transfused 2 units packed red blood cells on her last admission () H&H Stable today. Continue to monitor while in the hospital GI consult placed EGD/colonoscopy scheduled 06/20 Transfuse as necessary IV Protonix 40 mg (3) ESRD (end stage renal disease) Status: Acute Plan: Nephrology consulted - she is on dialysis Thursday//Thursday AV fistula in left forearm Careful with nephrotoxic agents (4) Hypertension Status: Acute Plan: Patient known to be noncompliant with medications She did not fill prescriptions for medications upon discharge 06/18 from the hospital, therefore did not get any of her evening or morning medications Restart home medications as below: Carvedilol 25 mg q12 clonidine 0.2 mg po bid hydralazine 75 mg po bid metoprolol 50 po hs amlodipine 10 po daily (5) Non-compliance Status: Acute Plan: Counseled importance of PCP follow up and taking meds. She acknowledges that she will from now on. (6) Diabetes mellitus Status: Acute Plan: Hold home glyburide SSI with accuchecks (7) FEN/PPX Status: Acute Plan: Fluids: LR at 200 ml/hr Electrolytes: monitor and replace prn Nutrition: NPO except meds; adv diet as tolerated by pain PPX: no heparin with anemia possibly from GI source. SCDs bilaterally -Protonix as above Problem Qualifiers (1) Pancreatitis: Qualified Code: K85.80 - Other acute pancreatitis, unspecified complication status (2) Anemia: Qualified Code: D64.9 - Anemia, unspecified type (3) Diabetes mellitus: Qualified Code: E11.8 - Type 2 diabetes mellitus with complication, without long-term current use of insulin Yash Masters MD R2 Jun 20, 2016 08:16
[2016-06-20] MEDS: SEVELAMER CARBONATE 800 MG TAB PO SCH ×3 (09:00→16:37)
[2016-06-20 12:00] VITALS: BP 165/70; PULSE 56; RESP 17; TEMP 96.9; O2SAT 95
[2016-06-20] MEDS: PANTOPRAZOLE SODIUM 40 MG VIAL IV PUSH SCH (12:00)
[2016-06-20] MEDS ORDERED: PROPOFOL 200 MG/20 ML AMP IV ONE (12:31)
--- NOTE | 2016-06-20 12:50 | PD.PROCEDR ---
GI Procedure REFERRING PHYSICIAN Dr. Guevara PROCEDURE PERFORMED EGD with biopsy followed by colonoscopy INDICATION FOR PROCEDURE Abdominal pain and anemia PROCEDURE: The procedure, risks and benefits were discussed with Ms. Patel and informed consent was obtained. Anesthesia sedated her with Diprivan. She was placed in the left lateral decubitus position. EGD: The Pentax videoscope was introduced through the oropharynx and advanced to the second portion of the duodenum under direct visualization. Retroflexion was performed in the stomach. FINDINGS: The esophagus this was normal The stomach there was patchy erythema in the antrum but no ulcerations or erosions no blood or bleeding antral biopsies were taken for further evaluation The duodenum there was a large clean-based ulcer in the duodenal sweep no visible vessel there was surrounding congestion and erythema and biopsies were taken from the periphery the rest of the duodenum was unremarkable Colonoscopy: The Pentax videoscope was introduced through the rectum and advanced to cecum where the ileocecal valve and appendiceal orifice were identified. Retroflexion was performed in the rectum. Colonic prep was very poor throughout the colon FINDINGS: As the scope was slowly withdrawn colonic mucosa was carefully inspected the evaluation was limited by poor prep but otherwise unremarkable no retroflexion was performed due to stool rectal examination otherwise unremarkable ESTIMATED BLOOD LOSS: None SPECIMENS REMOVED: Duodenal and antral COMPLICATIONS: None IMPRESSION: Gastritis Duodenal ulcer Poor colon prep otherwise unremarkable PLAN: Await biopsy Avoid NSAIDs and aspirin Protonix 40 mg twice a day Follow up with GI post discharge Advanced diet as tolerated EGD and colonoscopy in 2-3 months Mohit aBptiste MD Jun 20, 2016 12:50
[2016-06-20] MEDS ORDERED: DO NOT ADM ANY ANTICOAGULANT DRUGS PRN (13:15)
[2016-06-20 13:25] VITALS: O2SAT 95
--- NOTE | 2016-06-20 13:27 | HHI.NPPN ---
Subjective History of Present Illness 56-year-old female with a history of hypertension diabetes mellitus as well as end-stage renal disease on maintenance hemodialysis. Patient was originally from [place] now living locally. Presented today with complaint of sudden onset of epigastric abdominal pain on her way to outpatient HD. Denies any NVDC. Has been seen here on multiple occasions for anemia and has previously been refusing EGD/colonoscopy up until this admission. Lipase normal, but CT scan shows potential inflammation in pancreatic head. Currently has mild pain, but improved since IV medication. Patient receives dialysis as an outpatient on Tuesdays, and Saturdays. Should be noted that the patient was provided with written notice directly of termination from my practice on June 10, 2016 with provision for 30 days of emergent care if required. Patient informed me she has not yet established with another bench jeweler. She was advised again that I will not be available after the above-mentioned timeframe to provide nephrology services to her and of the importance of establishing with another bench jeweler prior to the provision mentioned above. She was advised that she had a life-threatening condition if untreated Interval History Patient seen post GI procedure. Apparently a duodenal ulcer was found. Review of Systems General General Remarks No verbal complaints currently Objective Data Data 06/19/16 06/20/16 19:00 07:00 Intake Total 360 ml Output Total 5000 ml Balance -5000 ml 360 ml Intake Oral 360 ml IV Total 0 ml Output Hemodialysis 5000 ml # Voids 1 # Bowel Movements 3 Vital Signs Date Time Temp Pulse Resp B/P Pulse Ox O2 Delivery O2 Flow Rate FiO2 06/20/16 12:49 98.4 57 15 94/48 99 06/20/16 08:03 97.3 66 19 165/80 99 06/20/16 00:05 97.2 61 19 152/72 95 06/19/16 21:41 94 Nasal Cannula 1.00 06/19/16 20:00 96.8 66 20 207/101 94 06/19/16 15:45 100 Nasal Cannula 1.00 -: 06/20/16 0359 06/20/16 0359 Physical Exam General Appearance: Obese Eyes Eye Exam: Sclera White Pulmonary Resp Exam: Clear Bilaterally, Breath Sounds Equal, No Distress Cardiology CV Exam: Regular, Normal Sinus Rhythm Gastrointestinal/Abdomen GI Exam: Soft Integumentary Skin Exam: Clear, Warm Extremeties Extremities Exam: No Edema Assessment/Plan Discussed Condition With: Patient Problem List: (1) End stage renal disease on dialysis Plan: Will continue on TTS schedule. Discharge planning as per GI and primary care physician. Hemodialysis will occur either in-house or in the outpatient dialysis facility depending upon whether or not patient is discharged today. Medications should be adjusted for the patient's ESRD. Avoid gadolinium. As mentioned previously, the patient has been discharged from our outpatient services and indicates that she has not yet established with a new nephrology group. She has been counselled about the importance of doing so. (2) Noncompliance w/medication treatment due to intermit use ofmedication (3) Anemia Plan: Continue on Epogen with HD (4) Pancreatitis Plan: Lipase should be interpreted with caution as lipase level can be elevated with end-stage renal disease. (5) Diabetes mellitus Plan: Mgmt as per primary (6) Hypertension Plan: Resume home medications. States she has not taken BP meds since her last discharge here 2 days ago. Problem Qualifiers (1) Anemia: Qualified Code: D64.9 - Anemia, unspecified type (2) Pancreatitis: Qualified Code: K85.80 - Other acute pancreatitis, unspecified complication status (3) Diabetes mellitus: Qualified Code: E11.8 - Type 2 diabetes mellitus with complication, without long-term current use of insulin Jillian Rubio MD Jun 20, 2016 13:27
[2016-06-20 16:00] VITALS: BP 120/57; PULSE 67; RESP 19; TEMP 96.9; O2SAT 96
[2016-06-20 20:00] VITALS: BP 151/73; PULSE 66; RESP 18; TEMP 95.8; O2SAT 97
[2016-06-20] MEDS ORDERED: METOPROLOL SUCCINATE 50 MG EXTENDED RELEASE TAB PO SCH (21:00)
[2016-06-21] VITALS: BP 126/58; PULSE 68; RESP 18; TEMP 95.1; O2SAT 94
[2016-06-21] MEDS ORDERED: diphenhydrAMINE HCL 25 MG CAP PO ONE (00:30)
--- NOTE | 2016-06-21 06:59 | HHI.FPPN ---
Subjective Remarks Pt seen and examined this morning. AFVSS. S/P EGD/colonoscopy yesterday showing duodenal ulcer and gastritis. She is tolerating a diet without issues. Complaining of mild epigastric pain but much better today. Denies nausea, vomiting, chest pain, shortness of breath, or calf pain. She is ambulating without difficulties. Feels medically ready to go home. Objective Vitals Vital Signs Date Time Temp Pulse Resp B/P Pulse Ox O2 Delivery O2 Flow Rate FiO2 06/21/16 00:00 95.1 68 18 126/58 94 06/20/16 20:00 95.8 66 18 151/73 97 06/20/16 16:00 96.9 67 19 120/57 96 06/20/16 13:25 95 Nasal Cannula 2.00 06/20/16 13:00 98.5 58 15 115/59 100 06/20/16 12:49 98.4 57 15 94/48 99 06/20/16 12:00 96.9 56 17 165/70 95 06/20/16 08:03 97.3 66 19 165/80 99 I/O 06/20/16 06/20/16 06/20/16 06/21/16 06/21/16 06/21/16 07:00 15:00 23:00 07:00 15:00 23:00 Intake Total 240 ml 1720 ml 242 ml 120 ml Output Total 700 ml Balance 240 ml 1020 ml 242 ml 120 ml Intake Oral 240 ml 1520 ml 240 ml 120 ml IV Total 0 ml 0 ml 2 ml Other 200 ml Output Urine Total 700 ml Estimated Blood Loss 0 ml # Voids 1 0 1 3 # Bowel Movements 3 1 Result Diagram: 06/20/16 0359 06/20/16 0359 Objective Remarks GENERAL: Obese, disheveled-appearing female sitting up in bed in [facility]. SKIN: Hyperpigmented skin. Warm and dry. HEENT: Pupils equal and round. MMM. HEART: RRR no m/r/g. LUNGS: CTAB no wheezes or crackles. ABDOMEN: Soft, NT, ND. No guarding or rebound. EXTREMITIES: No LE edema. No calf tenderness. NEURO: Awake and alert. A/P Assessment and Plan 56-year-old patient with history of anemia, noncompliance, severe hypertension, end-stage renal disease presents with abdominal pain found to have evidence of possible pancreatitis on CT scan but EGD showing gastritis which is more likely picture. Nephrology and GI consulted and patient s/p EGD and colonoscopy yesterday showing a duodenal ulcer and gastritis. She is medically stable for discharge. Discharge Planning D/C after dialysis today. Problem List: (1) Gastritis Status: Acute Plan: Patient presenting with epigastric pain and CT showing possible evidence of pancreatitis though lipase not impressive and could be elevated in the setting of ESRD. Mathieu score of 1 on admission. If truly pancreatitis, unclear etiology as patient denies alcohol use, CT does not reveal gallstones and triglycerides from prior admission not extremely elevated. Her pain is most likely from gastritis rather than pancreatitis. - Tylenol and Dilaudid PRN - Tolerating a diet - Protonix BID per GI - Educated to not take NSAIDs especially with ESRD - F/U with GI as outpatient (2) Duodenal ulcer Status: Acute Plan: S/P EGD yesterday. Continue Protonix and f/u with GI as outpatient. Counseled against use of NSAIDs. (3) Anemia Status: Chronic Plan: Likely anemia of chronic diseaes but potential component of GI bleed as patient with history of melena and EGD yesterday showing gastritis and duodenal ulcer. - H&H stable - Epogen with HD per renal Of note, patient has history of severe anemia with anemia of 4.3 earlier this month and was transfused 2 units packed red blood cells on her last admission (). (4) ESRD (end stage renal disease) Status: Chronic Plan: Currently on HD TThS. Nephrology consulted; prior to admission she has been discharged from Dr. Rubio's practice and has been reminded multiple times about the importance of finding a new scrum coach. - Avoid nephrotoxins (5) Hypertension Status: Chronic Plan: Patient known to be noncompliant with medications and did not fill prescriptions for medications upon discharge 06/18 from the hospital. Restart home medications as below: - Carvedilol 25 mg BID - Clonidine 0.2 mg BID - Hydralazine 75 mg BID - Metoprolol 50mg QHS - Amlodipine 10 mg QD (6) Non-compliance Status: Chronic Plan: Counseled importance of PCP follow up and taking meds. She acknowledges that she will from now on. (7) Diabetes mellitus Status: Chronic Plan: Hold home glyburide (resume on D/C). SSI per protocol while in the hospital. (8) FEN/PPX Status: Acute Plan: - Fluids: Tolerating PO - Electrolytes: WNL - Nutrition: Renal diet - DVT prophylaxis: SCDs. Anticoagulation not given secondary to anemia with possible GI source - GI prophylaxis: Protonix dw Dr. Guevara Problem Qualifiers (1) Anemia: Qualified Code: D64.9 - Anemia, unspecified type (2) Diabetes mellitus: Qualified Code: E11.8 - Type 2 diabetes mellitus with complication, without long-term current use of insulin Sun Melchor MD Jun 21, 2016 06:59 Problem Qualifiers (1) Anemia: Qualified Code: D64.9 - Anemia, unspecified type (2) Diabetes mellitus: Qualified Code: E11.8 - Type 2 diabetes mellitus with complication, without long-term current use of insulin Sun Melchor MD Jun 21, 2016 06:59
[2016-06-21] MEDS: INSULIN ASPART SUPPLEMENTAL SCALE SQ SCH (07:00)
[2016-06-21 07:09] LABS: HEMATOCRIT 22.9 % (35.0-46.0); MEAN CELL VOLUME 89.2 FL (80.0-100.0); MEAN CORPUSCULAR HEMOGLOBIN 29.8 PG (27.0-34.0); MEAN CORPUSCULAR HGB CONC 33.5 % (32.0-36.0); PLATELET COUNT 215 TH/MM3 (150-450); RED BLOOD COUNT 2.56 MIL/MM3 (4.00-5.30); RED CELL DISTRIBUTION WIDTH 17.4 % (11.6-17.2); REVIEW FLAG FINAL; WHITE BLOOD COUNT 6.3 TH/MM3 (4.0-11.0)
[2016-06-21] MEDS ORDERED: PROT40TA PO (07:36)
--- NOTE | 2016-06-21 07:37 | HHI.DCPOC ---
Discharge Care Plan Diagnosis: (1) Gastritis (2) Duodenal ulcer Goals to Promote Your Health * To prevent worsening of your condition and complications * To maintain your health at the optimal level Directions to Meet Your Goals Take your medications as prescribed Follow your dietary instruction Follow activity as directed Keep your appointments as scheduled Take your immunizations and boosters as scheduled If your symptoms worsen call your PCP, if no PCP go to Urgent Care Center or Emergency Room Smoking is Dangerous to Your Health. Avoid second hand smoke Call the 24-hour hour crisis hotline for domestic abuse at Sun Melchor MD Jun 21, 2016 07:37
[2016-06-21 08:00] VITALS: BP 122/67; PULSE 67; RESP 19; TEMP 98.3; O2SAT 96
[2016-06-21] MEDS: SEVELAMER CARBONATE 800 MG TAB PO SCH (08:44)
[2016-06-21] MEDS: SODIUM CHLORIDE 0.9% FLUSH 10 ML FLUSH IV FLUSH SCH (08:45)
--- NOTE | 2016-06-21 10:23 | HHI.DS ---
Discharge Summary Admission Date Jun 19, 2016 at 10:51 Discharge Date: Jun 21, 2016 Admitting Diagnosis mild pancreatitis/abdominal pain (1) Gastritis Plan: Patient presenting with epigastric pain and CT showing possible evidence of pancreatitis though lipase not impressive and could be elevated in the setting of ESRD. Mathieu score of 1 on admission. If truly pancreatitis, unclear etiology as patient denies alcohol use, CT does not reveal gallstones and triglycerides from prior admission not extremely elevated. Her pain is most likely from gastritis rather than pancreatitis. - Tylenol and Dilaudid PRN - Tolerating a diet - Protonix BID per GI - Educated to not take NSAIDs especially with ESRD - F/U with GI as outpatient (2) Duodenal ulcer Plan: S/P EGD yesterday. Continue Protonix and f/u with GI as outpatient. Counseled against use of NSAIDs. (3) Anemia Plan: Likely anemia of chronic diseaes but potential component of GI bleed as patient with history of melena and EGD yesterday showing gastritis and duodenal ulcer. - H&H stable - Epogen with HD per renal Of note, patient has history of severe anemia with anemia of 4.3 earlier this month and was transfused 2 units packed red blood cells on her last admission (). (4) ESRD (end stage renal disease) Plan: Currently on HD TThS. Nephrology consulted; prior to admission she has been discharged from Dr. Rubio's practice and has been reminded multiple times about the importance of finding a new steam bone press tender. - Avoid nephrotoxins (5) Hypertension Plan: Patient known to be noncompliant with medications and did not fill prescriptions for medications upon discharge 06/18 from the hospital. Restart home medications as below: - Carvedilol 25 mg BID - Clonidine 0.2 mg BID - Hydralazine 75 mg BID - Metoprolol 50mg QHS - Amlodipine 10 mg QD (6) Non-compliance Plan: Counseled importance of PCP follow up and taking meds. She acknowledges that she will from now on. (7) Diabetes mellitus Plan: Hold home glyburide (resume on D/C). SSI per protocol while in the hospital. Consultants Nephrology Brief History 56-year-old female presenting to the emergency department with generalized malaise and epigastric abdominal pain that began yesterday evening. She was recently hospitalized for hypertensive urgency and requiring dialysis from 06/16 through 06/18 and discharged home. She states that prior to discharge, she did eat lunch in the hospital and then was at home just sitting on her couch watching TV when she developed a sharp, constant epigastric pain. She denies eating dinner prior to this pain. The pain did subside somewhat so that she was able to fall asleep, however was still present this morning so she presented to the emergency department for further evaluation. At her previous hospitalization, she was noted to have extremely high blood pressure and was found to be noncompliant on her multiple blood pressure medications. She was restarted on her home blood pressure medications and was noted to have normal blood pressure prior to discharge. She also was found to be significantly anemic and was transfused 2 units PRBCs with a hemoglobin of 8.6 on discharge. She was evaluated by gastroenterology who recommended an EGD and colonoscopy, however she refused to have these done. She has been noted to have significant anemia several times in the past, and has repetitively refused workup with EGD/colonoscopy. However, at this hospital presentation she states that she would like to have this done as she feels that this could be part of the reason why she feels so poorly. She does endorse nausea but denies any emesis. She has not eaten anything since this abdominal pain started. She had a bowel movement this morning that she describes as normal, brown in color without evidence of melena or hematochezia. She also endorses some substernal chest discomfort that is intermittent and sharp in nature. This is relatively chronic in nature and has not changed in intensity or presentation. CBC/BMP: 06/21/16 0540 06/20/16 0359 Significant Findings Laboratory Tests Test 06/19/16 06/20/16 06/21/16 07:50 03:59 05:40 Activated Partial 18.7 SEC Thromboplast Time (24.3-30.1) Sodium Level 135 MEQ/L 135 MEQ/L (136-145) (136-145) Chloride Level 97 MEQ/L 94 MEQ/L (98-107) (98-107) Blood Urea Nitrogen 49 MG/DL (7-18) 27 MG/DL (7-18) Creatinine 8.84 MG/DL 5.99 MG/DL (0.50-1.00) (0.50-1.00) Estimat Glomerular Filtration 5 ML/MIN (>89) 7 ML/MIN (>89) Rate Random Glucose 261 MG/DL 169 MG/DL (74-106) (74-106) Aspartate Amino Transf 9 U/L (15-37) 11 U/L (15-37) (AST/SGOT) Troponin I 0.45 NG/ML (0.02-0.05) Red Blood Count 2.85 MIL/MM3 2.75 MIL/MM3 2.56 MIL/MM3 (4.00-5.30) (4.00-5.30) (4.00-5.30) Hemoglobin 8.6 GM/DL 8.2 GM/DL 7.7 GM/DL (11.6-15.3) (11.6-15.3) (11.6-15.3) Hematocrit 25.3 % 24.4 % 22.9 % (35.0-46.0) (35.0-46.0) (35.0-46.0) Red Cell Distribution Width 17.8 % 17.4 % (11.6-17.2) (11.6-17.2) Neutrophils (%) (Auto) 70.3 % (16.0-70.0) Monocytes (%) (Auto) 8.7 % (0.0-8.0) Eosinophils (%) (Auto) 7.3 % (0.0-4.0) 7.7 % (0.0-4.0) Eosinophils # (Auto) 0.6 TH/MM3 0.5 TH/MM3 (0-0.4) (0-0.4) Albumin 3.3 GM/DL (3.4-5.0) Imaging Abdomen/Pelvis CT 06/19/16 0757 Signed Impressions: Service Date/Time: May 08:37 - CONCLUSION: 1. Indistinctness and mild soft tissue changes in the mesentery adjacent to the head of the pancreas. This could indicate mild pancreatitis. 2. The gallbladder is unremarkable in appearance with no evidence of calcified stones. 3. Atrophic kidneys with scarring on the right. 4. Moderate cardiomegaly noted. Truong Robledo MD PE at Discharge GENERAL: Obese, disheveled-appearing female sitting up in bed in [facility]. SKIN: Hyperpigmented skin. Warm and dry. HEENT: Pupils equal and round. MMM. HEART: RRR no m/r/g. LUNGS: CTAB no wheezes or crackles. ABDOMEN: Soft, NT, ND. No guarding or rebound. EXTREMITIES: No LE edema. No calf tenderness. NEURO: Awake and alert. Hospital Course 56-year-old patient with history of anemia, noncompliance, severe hypertension, end-stage renal disease admitted on 06/19/16 for ep[address] pain and CT scan findings suggestive of possible acute pancreatitis. GI was consulted and patient underwent EGD showing gastritis and duodenal ulcer. Colonoscopy also done but was a poor prep. Nephrology consulted and patient continued hemodialysis as scheduled. She improved and was discharged in stable condition on 06/21/16. Pt Condition on Discharge: Stable Discharge Disposition: Discharge Home Discharge Instructions DIET: Follow Instructions for: Renal Failure Diet Activities you can perform: Regular-No Restrictions Follow up Referrals: Nephrology - 1 Week PCP Follow-up New Medications: Pantoprazole (Protonix) 40 Mg Tab 40 MG PO BID Ulcer Prevention #60 Ref 0 TAB Continued Medications: Amlodipine (Amlodipine) 10 Mg Tab 10 MG PO DAILY Blood Pressure Management #[address] (Aspirin Adult Low Strength) 81 Mg Tabdr 81 MG PO DAILY antiplatelet TAB Carvedilol (Coreg) 12.5 Mg Tab 25 MG PO Q12HR #60 Ref 1 TAB Clonidine (Clonidine) 0.2 Mg Tab 0.2 MG PO BID Blood Pressure Management #60 Ref 0 TAB Cyanocobalamin (Vitamin B-12) 1,000 Mcg Tab 1000 MCG PO DAILY Nutritional Supplement #1 Ref 0 BOTTLE Glyburide (Glyburide) 5 Mg Tab 5 MG PO DAILY Take with meals at the same time each day Blood Sugar Management # 30 Ref 0 TAB Hydralazine (Hydralazine) 50 Mg Tab 75 MG PO BID #60 Ref 1 TAB Hydrocodone-Acetaminophen (Lortab) 5-325 Mg Tab 1 TAB PO Q6H PRN PAIN #10 Ref 0 TAB Metoprolol Succinate ER 24 HR (Metoprolol Succinate ER 24 HR) 50 Mg Tab 50 MG PO HS #30 Ref 1 TAB Nifedipine ER 24 HR (Nifedipine ER 24 HR) 60 Mg Tab 60 MG PO BID Blood Pressure Management #60 TAB Sevelamer Carbonate (Renvela) 800 Mg Tab 800 MG PO TID Take with meals Control phosphorous levels #90 Ref 0 TAB Discontinued Medications: Pantoprazole (Protonix) 40 Mg Tab 40 MG PO DAILY Reflux #30 Ref 0 TAB Sun Melchor MD Jun 21, 2016 10:23
[2016-06-21] MEDS: EPOETIN ALFA 10,000 UNITS/ML VIAL IV PRN (10:29)
--- NOTE | 2016-06-21 11:30 | HHI.FF ---
Face to Face Verification Diagnosis: (1) Gastritis Home Health Nursing Order: Signs/symptoms of disease process Nursing assessment with vital signs I have seen patient Ryanne Patel on 06/21/16. My clinical findings support the need for the requested home health care services because: Med compliance is questionable I certify that my clinical findings support that this patient is homebound because: Need for psychosocial assistance Brigido Jimenez MD R2 Jun 21, 2016 11:30
[2016-06-21 14:27] VITALS: BP 143/68; PULSE 68; RESP 17; TEMP 98.2; O2SAT 95
== END 2016-06-21 16:26 | disposition home health service (06) | DRG 391 ==
LOC: NEPC 07:11 → NEDA 09:59 → OBSVTOIN 10:51 → N07A 18:30
PROVIDERS: ADMIT Family Medicine; ATTEND Family Medicine
PROC: 5A1D60Z (ICD-10-PCS; principal; 2016-06-19)
PROC: 0DJD8ZZ Inspection of Lower Intestinal Tract, Via Natural or Artificial Opening Endoscopic (ICD-10-PCS; 2016-06-20)
PROC: 0DB98ZX Excision of Duodenum, Via Natural or Artificial Opening Endoscopic, Diagnostic (ICD-10-PCS; 2016-06-20 12:20)
DX: K29.70 Gastritis, unspecified, without bleeding (principal); N18.6 End stage renal disease; K85.90 Acute pancreatitis without necrosis or infection, unspecified; E11.22 Type 2 diabetes mellitus with diabetic chronic kidney disease; K26.9 Duodenal ulcer, unspecified as acute or chronic, without hemorrhage or perforation; I12.0 Hypertensive chronic kidney disease with stage 5 chronic kidney disease or end stage renal disease; N26.1 Atrophy of kidney (terminal); R07.89 Other chest pain; D63.1 Anemia in chronic kidney disease; D63.8 Anemia in other chronic diseases classified elsewhere; Z99.2 Dependence on renal dialysis; Z91.19 Patient's noncompliance with other medical treatment and regimen; Z91.14 Patient's other noncompliance with medication regimen; Z79.84 Long term (current) use of oral hypoglycemic drugs
CPT/HCPCS: 74176; 80053; 80307; 82948; 83690; 84484; 85025; 85027; 85610; 85730; 88305; 88312; 90935; 96374; 96375; C9113; J1815; J2270; J2405; J7030; J7120; Q4081

== ENCOUNTER 2016-07-08 12:58 | Observation (INO) | payer MEDICARE, OTHER ==
[~2016-07-08] VITALS: Ht 167.6 cm; Wt 100.2 kg
[2016-07-08] VITALS (8 sets, daily range): BP systolic 144–253; BP diastolic 64–132; PULSE 65–82; RESP 16–20; TEMP 97.8–98.6; O2SAT 94–100
[2016-07-08] MEDS ORDERED: FUROSEMIDE 40 MG/4 ML VIAL IVP ONE (13:45)
[2016-07-08] MEDS ORDERED: SODIUM CHLORIDE 0.9% FLUSH 10 ML FLUSH IVF PRN (13:45)
[2016-07-08 14:10] LABS: BLOOD GAS BASE EXCESS -1.2 mmol/L (-2-2); BLOOD GAS CARBOXYHEMOGLOBIN 1.8 % (0-4); BLOOD GAS HCO3 23 mmol/L (22-26); BLOOD GAS METHEMOGLOBIN 0.6 % (0-2); BLOOD GAS O2 HGB SATURATION 95 % (90-100); BLOOD GAS OXYGEN CONTENT 10.4 Vol % (12.0-20.0); BLOOD GAS PCO2 35 mmHg (38-42); BLOOD GAS PO2 88 mmHG (61-120); BLOOD GAS TOTAL HGB 7.7 G/DL (12.0-16.0); CRITICAL VALUE NO; DRAW SITE RT RADIAL; LITER FLOW 2 L/M; OXYGEN DEVICE NASAL CANNULA; TEMP CORR TO 98.6
[2016-07-08 14:11] LABS: NUMBER OF ARTERIAL PUNCTURES 1; STAT YES; ULNAR PULSE PRESENT
--- NOTE | 2016-07-08 14:19 | PD ---
HPI Chief Complaint: Respiratory Distress Time Seen by Provider: 14:00 Travel History International Travel<30 days: No Contact w/Intl Traveler<30days: No Traveled to known affect area: No History of Present Illness HPI Patient's 56-year-old female presented to the emergency department for evaluation of shortness of breath via EMS. Patient states that she has not had dialysis in over a week. She reports that she "doesn't feel good". She denies any chest pain, nausea, vomiting, weight gain but reports bilateral lower extremity edema. Patient is a poor historian. Patient states she does not have a client support coordinator and that she was kicked out of the dialysis center. Patient 's past medical history significant for hypertension, end-stage renal disease on hemodialysis, type 2 diabetes, obesity. PFSH Past Medical History Medical History: Unable to Obtain Anemia: Yes Arthritis: No Cancer: No High Cholesterol: Yes Cerebrovascular Accident: Yes Coronary Artery Disease: Yes Diabetes: Yes Dialysis: Yes Diminished Hearing: No GERD: Yes Hypertension: Yes Medical other: Yes (unknown) Musculoskeletal: No Psychiatric: No Reproductive: No Respiratory: No Pancreatitis: Yes Renal Failure: Yes ?: Not : 1 Miscarriage: 1 Past Surgical History Surgical History: Unable to Obtain Abdominal Surgery: No Cardiac Surgery: No Ear Surgery: No Endocrine Surgery: No Eye Surgery: No Genitourinary Surgery: No Gynecologic Surgery: No Oral Surgery: No Thoracic Surgery: No Other Surgery: Yes (LT FOREARM FISTULA) Social History Alcohol Use: No Tobacco Use: No Substance Use: No Allergies-Medications (Allergen,Severity, Reaction): Coded Allergies: No Known Allergies (Unverified , 04/08/16) Reported Meds & Prescriptions Reported Meds & Active Scripts Active Protonix (Pantoprazole Sodium) 40 Mg Tab 40 Mg PO BID Hydralazine (Hydralazine HCl) 50 Mg Tab 75 Mg PO BID Coreg (Carvedilol) 12.5 Mg Tab 25 Mg PO Q12HR Metoprolol Succinate ER 24 HR (Metoprolol Succinate) 50 Mg Tab 50 Mg PO HS Clonidine (Clonidine HCl) 0.2 Mg Tab 0.2 Mg PO BID Nifedipine ER 24 HR (Nifedipine) 60 Mg Tab 60 Mg PO BID Amlodipine (Amlodipine Besylate) 10 Mg Tab 10 Mg PO DAILY Lortab (Hydrocodone-Acetaminophen) 5-325 Mg Tab 1 Tab PO Q6H PRN Reported Aspirin Adult Low Strength (Aspirin) 81 Mg Tabdr 81 Mg PO DAILY Vitamin B-12 (Cyanocobalamin) 1,000 Mcg Tab 1,000 Mcg PO DAILY Glyburide 5 Mg Tab 5 Mg PO DAILY Take with meals at the same time each day Renvela (Sevelamer Carbonate) 800 Mg Tab 800 Mg PO TID Take with meals Review of Systems ROS Limitations: Altered Mental Status Except as stated in HPI: all other systems reviewed are Neg General / Constitutional: No: Fever HENT: No: Headaches Cardiovascular: No: Chest Pain or Discomfort Respiratory: Positive: Shortness of Breath, Orthopnea, No: Cough Gastrointestinal: No: Nausea, Vomiting, Diarrhea, Abdominal Pain Genitourinary: Positive: Decreased Urinary Output, No: Dysuria Neurologic: Positive: Weakness, Change in Mentation Physical Exam Narrative GENERAL: Obese, well-developed, drowsy but arousable female. Resting comfortably in no acute distress. SKIN: Focused skin assessment warm/dry. HEAD: Atraumatic. Normocephalic. EYES: Pupils equal and round. No scleral icterus. No injection or drainage. ENT: No nasal bleeding or discharge. Mucous membranes pink and moist. NECK: Trachea midline. No JVD. CARDIOVASCULAR: Regular rate and rhythm. 2/6 systolic murmur appreciated. RESPIRATORY: No accessory muscle use. Clear to auscultation. Breath sounds are diminished in bases bilaterally GASTROINTESTINAL: Abdomen obese soft, non-tender, nondistended. Hepatic and splenic margins not palpable. Positive bowel sounds, no rebound, no guarding MUSCULOSKELETAL: No obvious deformities. No clubbing. No cyanosis. Trace edema. NEUROLOGICAL: Awake and alert. No obvious cranial nerve deficits. Motor grossly within normal limits. Normal speech. PSYCHIATRIC: Appropriate mood and affect; insight and judgment impaired. Data Data Last Documented VS Vital Signs Date Time Temp Pulse Resp B/P Pulse Ox O2 Delivery O2 Flow Rate FiO2 07/08/16 16:10 72 18 242/132 07/08/16 15:00 100 07/08/16 13:20 Room Air 07/08/16 13:08 98.6 Orders Complete Blood Count With Diff (07/08/16 13:43) Comprehensive Metabolic Panel (07/08/16 13:43) B-Type Natriuretic Peptide (07/08/16 13:43) Act Partial Throm Time (Ptt) (07/08/16 13:43) Prothrombin Time / Inr (Pt) (07/08/16 13:43) Magnesium (Mg) (07/08/16 13:43) Ckmb (Isoenzyme) Profile (07/08/16 13:43) Troponin I (07/08/16 13:43) Urinalysis - C+S If Indicated (07/08/16 13:43) Iv Access Insert/Monitor (07/08/16 13:43) Electrocardiogram (07/08/16 13:43) Ecg Monitoring (07/08/16 13:43) Oximetry (07/08/16 13:43) Oxygen Administration (07/08/16 13:43) Chest, Single Ap (07/08/16 13:43) Cath For Specimen (07/08/16 13:43) Sodium Chloride 0.9% Flush (Ns Flush) (07/08/16 13:45) Furosemide Inj (Lasix Inj) (07/08/16 13:45) Arterial Blood Gas (Abg) (07/08/16 13:58) Ct Brain W/O Iv Contrast(Rout) (07/08/16 ) Drug Screen, Random Urine (07/08/16 14:25) Metoprolol Tartrate Inj (Lopressor Inj) (07/08/16 16:00) CKMB (07/08/16 14:00) CKMB% (07/08/16 14:00) Amlodipine (Norvasc) (07/09/16 09:00) Aspirin Ec (Ecotrin Ec) (07/09/16 09:00) Carvedilol (Coreg) (07/08/16 21:00) Clonidine (Catapres) (07/08/16 21:00) Hydralazine (Apresoline) (07/08/16 21:00) Nifedipine Sr (Procardia Xl) (07/08/16 21:00) Pantoprazole (Protonix) (07/08/16 21:00) Sevelamer (Renvela) (07/08/16 18:00) Admit Order (Ed Use Only) (07/08/16 16:17) Place In Observation (07/08/16 ) Code Status (07/08/16 16:16) Vital Signs (Adult) Q4H (07/08/16 16:16) Activity Oob Ad Trisha (07/08/16 16:16) Bedside Glucose OBI.AC&HS (07/08/16 16:16) Financial Administration Officer / Telemetry .CONTINUOUS (07/08/16 16:16) Intake + Output OBI.QSHIFT (07/08/16 16:16) Notify Dr: Other (07/08/16 16:16) Diet Npo (07/08/16 Dinner) Sodium Chloride 0.9% Flush (Ns Flush) (07/08/16 16:30) Sodium Chloride 0.9% Flush (Ns Flush) (07/08/16 21:00) Acetaminophen (Tylenol) (07/08/16 16:30) Ondansetron Inj (Zofran Inj) (07/08/16 16:30) Bisacodyl Supp (Dulcolax Supp) (07/08/16 16:30) Docusate Sodium (Colace) (07/08/16 17:00) Basic Metabolic Panel (Bmp) (07/09/16 06:00) Complete Blood Count With Diff (07/09/16 06:00) Creatine Kinase (Cpk) (07/08/16 16:16) Creatine Kinase (Cpk) (07/08/16 22:16) Troponin I (07/08/16 16:16) Troponin I (07/08/16 22:16) Case Management Consult (07/08/16 16:16) Heparin Inj (Heparin Inj) (07/08/16 17:00) Naloxone Inj (Narcan Inj) (07/08/16 16:30) Labs Laboratory Tests Test 07/08/16 14:00 White Blood Count 8.3 TH/MM3 Red Blood Count 2.57 MIL/MM3 Hemoglobin 7.8 GM/DL Hematocrit 22.8 % Mean Corpuscular Volume 88.6 FL Mean Corpuscular Hemoglobin 30.2 PG Mean Corpuscular Hemoglobin 34.1 % Concent Red Cell Distribution Width 16.6 % Platelet Count 277 TH/MM3 Mean Platelet Volume 8.5 FL Neutrophils (%) (Auto) 77.7 % Lymphocytes (%) (Auto) 11.7 % Monocytes (%) (Auto) 6.2 % Eosinophils (%) (Auto) 3.3 % Basophils (%) (Auto) 1.1 % Neutrophils # (Auto) 6.4 TH/MM3 Lymphocytes # (Auto) 1.0 TH/MM3 Monocytes # (Auto) 0.5 TH/MM3 Eosinophils # (Auto) 0.3 TH/MM3 Basophils # (Auto) 0.1 TH/MM3 CBC Comment DIFF FINAL Differential Comment Prothrombin Time 10.7 SEC Prothromb Time International 1.0 RATIO Ratio Activated Partial 19.4 SEC Thromboplast Time Blood Gas Puncture Site RT RADIAL Blood Gas Patient Temperature 98.6 Blood Gas HCO3 23 mmol/L Blood Gas Base Excess -1.2 mmol/L Blood Gas Oxygen Saturation 95 % Arterial Blood pH 7.43 Arterial Blood Partial 35 mmHg Pressure CO2 Arterial Blood Partial 88 mmHG Pressure O2 Arterial Blood Oxygen Content 10.4 Vol % Arterial Blood 1.8 % Carboxyhemoglobin Arterial Blood Methemoglobin 0.6 % Blood Gas Hemoglobin 7.7 G/DL Oxygen Delivery Device NASAL CANNULA Blood Gas Liter Flow 2 L/M Sodium Level 138 MEQ/L Potassium Level 4.0 MEQ/L Chloride Level 101 MEQ/L Carbon Dioxide Level 23.7 MEQ/L Anion Gap 13 MEQ/L Blood Urea Nitrogen 56 MG/DL Creatinine 9.84 MG/DL Estimat Glomerular Filtration 4 ML/MIN Rate Random Glucose 160 MG/DL Calcium Level 9.4 MG/DL Magnesium Level 2.5 MG/DL Total Bilirubin 0.7 MG/DL Aspartate Amino Transf 15 U/L (AST/SGOT) Alanine Aminotransferase 15 U/L (ALT/SGPT) Alkaline Phosphatase 71 U/L Total Creatine Kinase 150 U/L Creatine Kinase MB 2.0 NG/ML Troponin I 0.73 NG/ML B-Type Natriuretic Peptide 1889 PG/ML Total Protein 7.2 GM/DL Albumin 3.6 GM/DL [facility] Medical Decision Making Medical Screen Exam Complete: Yes Emergency Medical Condition: Yes Medical Record Reviewed: Yes Interpretation(s) Vital Signs Date Time Temp Pulse Resp B/P Pulse Ox O2 Delivery O2 Flow Rate FiO2 07/08/16 13:20 80 96 Room Air 07/08/16 13:08 98.6 82 18 212/107 96 Differential Diagnosis CHF versus electrolyte abnormality versus acute on chronic renal failure versus cardiac arrhythmia versus congestive heart failure versus pneumonia versus other Narrative Course Patient is a 56-year-old female that presented to emergency via EMS after EMS was initially called for her . They saw her and felt she needed emergent evaluation. Patient presented short of breath requiring O2. Patient reports not having dialysis in well over a week. Additionally patient presented alert but confused and appeared drowsy. Labs and imaging ordered and pending, IV access established, patient placed on telemetry monitoring and continuous pulse oximetry. Patient's blood pressure was markedly elevated on arrival, she was given Lasix 40 mg IV 1 dose. CBC with a mild anemia at 7.8 and 22 Troponin elevated 0.73 likely secondary to renal failure Chemistry BUN and creatinine of 56/9.84, BNP 1889 Chest x-ray shows cardiomegaly with bibasilar airspace disease Metoprolol 5 mg IV 1 dose ordered. [facility] paged for admission, Dr. Mendoza accepted admission. Dr. Freedman paged at 1606, 1627, 1650 -BP 229/109 after metoprolol, hydralazine 10 mg IV [address] Freedman returned page at 1710, at that time he was informed of patient's history and current lab values. Diagnosis Primary Impression: End stage renal disease on dialysis Additional Impressions: Anemia Qualified Code: D64.9 - Anemia, unspecified type Fluid overload Qualified Code: E87.79 - Other hypervolemia Elevated troponin Non-compliance Accelerated hypertension Altered mental status Qualified Code: R41.0 - Disorientation Admitting Information Admitting Physician Requests: Admit Condition: Tayler Ruiz July 08, 2016 14:19
--- NOTE | 2016-07-08 14:43 | RADRPT ---
EXAM DATE/TIME: 07/08/2016 13:51 [facility] COMPARISON: CHEST SINGLE AP, June 16, 2016, 17:20. INDICATIONS : Short of breath. MEDICAL HISTORY : Hypertension. Renal failure, chronic. Diabetes mellitus type 1. SURGICAL HISTORY : None. ENCOUNTER: Initial ACUITY: 3 days PAIN SCORE: 0/10 LOCATION: Bilateral chest FINDINGS: A single view of the chest demonstrates cardiomegaly with bibasilar airspace disease. Osseous struct ures are intact. CONCLUSION: 1. Cardiomegaly with bibasilar airspace disease. Sharath Martinez MD on July 08, 2016 at 14:40 Board Certified Radiologist. This report was verified electronically.
[2016-07-08 15:11] LABS: AUTOMATED NEUTROPHIL # 6.4 TH/MM3 (1.8-7.7); BASOPHIL # 0.1 TH/MM3 (0-0.2); BASOPHIL % 1.1 % (0.0-2.0); EOSINOPHIL # 0.3 TH/MM3 (0-0.4); EOSINOPHIL % 3.3 % (0.0-4.0); HEMATOCRIT 22.8 % (35.0-46.0); HEMO FLAGS DIFF FINAL; LYMPH % 11.7 % (9.0-44.0); MEAN CELL VOLUME 88.6 FL (80.0-100.0); MEAN CORPUSCULAR HEMOGLOBIN 30.2 PG (27.0-34.0); MEAN CORPUSCULAR HGB CONC 34.1 % (32.0-36.0); MONO % 6.2 % (0.0-8.0); NEUT % 77.7 % (16.0-70.0); PLATELET COUNT 277 TH/MM3 (150-450); RED BLOOD COUNT 2.57 MIL/MM3 (4.00-5.30); RED CELL DISTRIBUTION WIDTH 16.6 % (11.6-17.2); WHITE BLOOD COUNT 8.3 TH/MM3 (4.0-11.0)
[2016-07-08 15:25] LABS: APTT (PATIENT) 19.4 SEC (24.3-30.1); PROTHROMBIN TIME - PATIENT 10.7 SEC (9.8-11.6)
[2016-07-08 15:45] LABS: ALT (GPT) 15 U/L (10-53); ANION GAP 13 MEQ/L (5-15); AST (GOT) 15 U/L (15-37); BICARBONATE 23.7 MEQ/L (21.0-32.0); BLOOD UREA NITROGEN 56 MG/DL (7-18); CHLORIDE 101 MEQ/L (98-107); GLOMERULAR FILTRATION RATE 4 ML/MIN (>89); MAGNESIUM 2.5 MG/DL (1.5-2.5); SODIUM (NA) 138 MEQ/L (136-145)
[2016-07-08 15:48] LABS: ALKALINE PHOSPHATASE 71 U/L (45-117); CREATINE KINASE 150 U/L (26-192); TOTAL BILIRUBIN ADULT 0.7 MG/DL (0.2-1.0)
[2016-07-08] MEDS ORDERED: METOPROLOL TARTRATE 5 MG/5 ML VIAL IV PUSH ONE (16:00)
--- NOTE | 2016-07-08 16:08 | RADRPT ---
EXAM DATE/TIME: 07/08/2016 15:30 [facility] COMPARISON: MRI BRAIN W/O CONTRAST, May 26, 2016, 9:26. CT BRAIN W/O CONTRAST, May 24, 2016, 13:55. INDICATIONS : Altered mental status. RADIATION DOSE: 56.35 CTDIvol (mGy) MEDICAL HISTORY : Stroke. Pancreatitis. Diabetes mellitus type 1. SURGICAL HISTORY : None. ENCOUNTER: Initial ACUITY: 1 day PAIN SCALE: Non-responsive LOCATION: cranial TECHNIQUE: Multiple contiguous axial images were obtained of the head. Using automated exposure control and adj ustment of the mA and/or kV according to patient size, radiation dose was kept as low as reasonably a chievable to obtain optimal diagnostic quality images. FINDINGS: CEREBRUM: Area of encephalomalacia involving the high left parietal lobe is stable. A small chronic lacunar inf arction involving right basal ganglia. The ventricles are normal for age. No evidence of midline wolf ft, mass lesion, hemorrhage or acute infarction. No extra-axial fluid collections are seen. POSTERIOR FOSSA: The cerebellum and brainstem are intact. The 4th ventricle is midline. The cerebellopontine angle i s unremarkable. EXTRACRANIAL: The visualized portion of the orbits is intact. SKULL: The calvaria is intact. No evidence of skull fracture. CONCLUSION: 1. No acute intracranial abnormality. 2. Left parietal encephalomalacia. Navneet Gray Jr., MD on July 08, 2016 at 15:49 Board Certified Radiologist. This report was verified electronically.
[2016-07-08] MEDS ORDERED: ONDANSETRON HCL 4 MG/2 ML VIAL IVP PRN (16:30)
[2016-07-08] MEDS ORDERED: ACETAMINOPHEN 325 MG TAB PO PRN ×2 (16:30→17:15)
[2016-07-08] MEDS ORDERED: BISACODYL 10 MG SUPP RECTAL PRN (16:30)
[2016-07-08] MEDS ORDERED: SODIUM CHLORIDE 0.9% FLUSH 10 ML FLUSH IV FLUSH PRN ×2 (16:30→17:15)
[2016-07-08] MEDS ORDERED: NALOXONE HCL 0.4 MG/ML AMP IV PRN (16:30)
[2016-07-08] MEDS: HEPARIN SODIUM - SQ 10,000 UNITS/ML VIAL SQ SCH (17:00)
[2016-07-08] MEDS ORDERED: hydrALAZINE HCL 20 MG/ML VIAL IV PUSH ONE (17:00)
[2016-07-08] MEDS: DOCUSATE SODIUM 100 MG CAP PO SCH ×2 (17:00→23:16)
--- NOTE | 2016-07-08 17:05 | HHI.HP ---
[facility] Unknown Admission Diagnosis acute on chronic kidney disease, CHF, altered mental status Diagnoses: Chief Complaint: Shortness of breath Travel History International Travel<30 Days: No Contact w/Intl Traveler <30 Da: No Traveled to Known Affected Are: No History of Present Illness Patient is a 56-year-old female with primary medical history of end-stage renal disease on hemodialysis, anemia, hypertension, DM 2 was been noncompliant with previous readmissions to the hospital who came in today for increased shortness of breath. Patient states that she has had not had hemodialysis for over a week. Previously saw Dr. Rubio. States that she was told that they don't want to see her anymore in dialysis, and mentioned that he did not provide any reason for dropping her. Poor historian. Confused but follows commands. States that shortness of breath has been on and off but has been worse despite morning, called EMS and she was taken to the hospital. She mentioned that her was also taken to the hospital as a patient. Reports bilateral feet swelling. Reports shortness of breath has improved with O2 nasal cannula. Complaints of mild abdominal pain, 3/10, nonradiating, mid to left side of the abdomen, aggravated by movement and palpation, relieved by rest. Otherwise,denies chest pain, palpitations, headaches, dizziness. Denies fevers, chills, n/v/d. Denies hematuria, dysuria. CT of the head showed no acute intracranial abnormality. Left parietal encephalomalacia. Chest x-ray showed Cardiomegaly with bibasilar airspace disease. Labs showed hemoglobin 7.8/hematocrit 22.8, neutrophils 77.7, BUN 56, creatinine 9.84, EGFR for, random glucose 160 Troponin 0.73 BNP 1889 Review of Systems ROS Limitations: Poor Historian Except as stated in HPI: all other systems reviewed are Neg Past Family Social History Past Medical History End-stage renal disease on hemodialysis Anemia with multiple blood transfusions Hypertension, with episodes of urgency DM 2 Noncompliant Past Surgical History Left AV fistula placement Reported Medications Reported Meds & Active Scripts Active Protonix (Pantoprazole Sodium) 40 Mg Tab 40 Mg PO BID Hydralazine (Hydralazine HCl) 50 Mg Tab 75 Mg PO BID Coreg (Carvedilol) 12.5 Mg Tab 25 Mg PO Q12HR Metoprolol Succinate ER 24 HR (Metoprolol Succinate) 50 Mg Tab 50 Mg PO HS Clonidine (Clonidine HCl) 0.2 Mg Tab 0.2 Mg PO BID Nifedipine ER 24 HR (Nifedipine) 60 Mg Tab 60 Mg PO BID Amlodipine (Amlodipine Besylate) 10 Mg Tab 10 Mg PO DAILY Lortab (Hydrocodone-Acetaminophen) 5-325 Mg Tab 1 Tab PO Q6H PRN Reported Aspirin Adult Low Strength (Aspirin) 81 Mg Tabdr 81 Mg PO DAILY Vitamin B-12 (Cyanocobalamin) 1,000 Mcg Tab 1,000 Mcg PO DAILY Glyburide 5 Mg Tab 5 Mg PO DAILY Take with meals at the same time each day Renvela (Sevelamer Carbonate) 800 Mg Tab 800 Mg PO TID Take with meals Allergies: Coded Allergies: No Known Allergies (Unverified , 04/08/16) Active Ordered Medications Current Medications Medications (Trade) Dose Ordered Sig/Shaun Route Start Time Stop Time Status Last Admin (Norvasc) 10 mg DAILY PO 07/09/16 09:00 (Ecotrin Ec) 81 mg DAILY PO 07/09/16 09:00 (Coreg) 25 mg Q12HR PO 07/08/16 21:00 (Catapres) 0.2 mg BID PO 07/08/16 21:00 (Apresoline) 75 mg BID PO 07/08/16 21:00 (Procardia Xl) 60 mg BID PO 07/08/16 21:00 (Protonix) 40 mg BID PO 07/08/16 21:00 (Renvela) 800 mg TID PO 07/08/16 18:00 (NS Flush) 2 ml UNSCH PRN IV FLUSH 07/08/16 16:30 (NS Flush) 2 ml BID IV FLUSH 07/08/16 21:00 (Tylenol) 650 mg Q4H PRN PO 07/08/16 16:30 (Zofran Inj) 4 mg Q6H PRN IVP 07/08/16 16:30 (Dulcolax Supp) 10 mg DAILY PRN RECTAL 07/08/16 16:30 (Colace) 100 mg Q12H PO 07/08/16 17:00 (Heparin Inj) 5,000 units Q12H SQ 07/08/16 17:00 (Narcan Inj) 0.4 mg UNSCH PRN IV 07/08/16 16:30 Family History Mother has diabetes, Social History Lives with . Originally from [place] has moved recently to the area. Denies alcohol use Denies tobacco use Denies illicit drug use Physical Exam Vital Signs Vital Signs Date Time Temp Pulse Resp B/P Pulse Ox O2 Delivery O2 Flow Rate FiO2 07/08/16 16:10 72 18 242/132 07/08/16 15:00 73 18 253/131 100 07/08/16 13:20 80 96 Room Air 07/08/16 13:08 98.6 82 18 212/107 96 Physical Exam GENERAL: This is an obese, unkempt, well-developed patient, mildly ill appearing , confuse. SKIN: No rashes, ecchymoses or lesions. Warm and dry. HEAD: Normocephalic. No temporal or scalp tenderness. EYES: Pupils equal round and reactive. Extraocular motions intact. No scleral icterus. No injection or drainage. ENT: Nose without bleeding. Throat without erythema. Uvula midline. Airway patent. NECK: Trachea midline. No JVD or lymphadenopathy. Supple, nontender, no meningeal signs. CARDIOVASCULAR: Regular rate and rhythm without murmurs, gallops, or rubs. RESPIRATORY: Diminished bases. No wheezes, rales, or rhonchi. GASTROINTESTINAL: Abdomen soft, non-tender, rounded, obese. Left UQ tender to palpation. MUSCULOSKELETAL: Extremities without clubbing, cyanosis. S2. NEUROLOGICAL: Awake and alert. Confuse. Poor historian. Oriented to person, place. Motor and sensory grossly within normal limits. Normal speech. Laboratory Laboratory Tests Test 07/08/16 14:00 White Blood Count 8.3 Red Blood Count 2.57 Hemoglobin 7.8 Hematocrit 22.8 Mean Corpuscular Volume 88.6 Mean Corpuscular Hemoglobin 30.2 Mean Corpuscular Hemoglobin 34.1 Concent Red Cell Distribution Width 16.6 Platelet Count 277 Mean Platelet Volume 8.5 Neutrophils (%) (Auto) 77.7 Lymphocytes (%) (Auto) 11.7 Monocytes (%) (Auto) 6.2 Eosinophils (%) (Auto) 3.3 Basophils (%) (Auto) 1.1 Neutrophils # (Auto) 6.4 Lymphocytes # (Auto) 1.0 Monocytes # (Auto) 0.5 Eosinophils # (Auto) 0.3 Basophils # (Auto) 0.1 CBC Comment DIFF FINAL Differential Comment Prothrombin Time 10.7 Prothromb Time International 1.0 Ratio Activated Partial 19.4 Thromboplast Time Blood Gas Puncture Site RT RADIAL Blood Gas Patient Temperature 98.6 Blood Gas HCO3 23 Blood Gas Base Excess -1.2 Blood Gas Oxygen Saturation 95 Arterial Blood pH 7.43 Arterial Blood Partial 35 Pressure CO2 Arterial Blood Partial 88 Pressure O2 Arterial Blood Oxygen Content 10.4 Arterial Blood 1.8 Carboxyhemoglobin Arterial Blood Methemoglobin 0.6 Blood Gas Hemoglobin 7.7 Oxygen Delivery Device NASAL CANNULA Blood Gas Liter Flow 2 Sodium Level 138 Potassium Level 4.0 Chloride Level 101 Carbon Dioxide Level 23.7 Anion Gap 13 Blood Urea Nitrogen 56 Creatinine 9.84 Estimat Glomerular Filtration 4 Rate Random Glucose 160 Calcium Level 9.4 Magnesium Level 2.5 Total Bilirubin 0.7 Aspartate Amino Transf 15 (AST/SGOT) Alanine Aminotransferase 15 (ALT/SGPT) Alkaline Phosphatase 71 Total Creatine Kinase 150 Creatine Kinase MB 2.0 Troponin I 0.73 B-Type Natriuretic Peptide 1889 Total Protein 7.2 Albumin 3.6 Result Diagram: 07/08/16 1400 07/08/16 1400 Imaging Last Impressions Chest X-Ray 07/08/16 1343 Signed Impressions: Service Date/Time: Friday, July 08, 2016 13:51 - CONCLUSION: 1. Cardiomegaly with bibasilar airspace disease. Sharath Martinez MD Head CT 07/08/16 0000 Signed Impressions: Service Date/Time: Friday, July 08, 2016 15:30 - CONCLUSION: 1. No acute intracranial abnormality. 2. Left parietal encephalomalacia. Navneet Gray Jr., MD Assessment and Plan Problem List: (1) Hypertensive urgency ICD Code: I16.0 Status: Acute (2) End stage renal disease on dialysis ICD Code: N18.6 Status: Acute (3) Non-compliance ICD Code: Z91.19 Status: Chronic (4) Anemia ICD Code: D64.9 Status: Chronic (5) Altered mental status ICD Code: R41.82 Status: Chronic Assessment and Plan Patient is a 56-year-old female with primary medical history of end-stage renal disease on hemodialysis, anemia, hypertension, DM 2 was been noncompliant with previous readmissions to the hospital who came in today for increased shortness of breath. Patient has not had any dialysis over a week. Recurrent readmissions to the hospital secondary to noncompliance. CT of the head showed no acute intracranial abnormality. Left parietal encephalomalacia. Chest x-ray showed Cardiomegaly with bibasilar airspace disease. Labs showed hemoglobin 7.8/hematocrit 22.8, neutrophils 77.7, BUN 56, creatinine 9.84, EGFR for, random glucose 160 Troponin 0.73 BNP 1888 End-stage renal disease, hemodialysis Noncompliant - Patient has not had any dialysis for about a week now. Previously seen by Dr. 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 When necessary clonidine, Vasotec - Monitor BP trend - Positive troponin 0.73, denies any chest pain. Trend troponin, trend EKG may probably be related to perfusion mismatch secondary to anemia. Check CK. Encephalopathy - Increased confusion. Possibly secondary to metabolic derangement has not been dialyzed for over a week. - CT of the head showed no acute intracranial abnormality. Left parietal encephalomalacia. - For HD Anemia, normocytic normochromic - Chronic disease, ESRD. Previous hospitalizations with multiple blood transfusions. - Hgb 7.8/Hgb 22.8 - May benefit with 1 unit blood transfusion as patient is symptomatic DM 2 - Glyburide at home hold for now - Start insulin sliding scale - Accu-Cheks - Monitor for hypoglycemia DVT prop SCD Code Status Full code Discussed Condition With Patient, nursing, Dr. Mendoza Physician Certification 2 Midnight Certification Type: Admission for Inpatient Services Order for Inpatient Services The services are ordered in accordance with Medicare regulations or non- Medicare payer requirements, as applicable. In the case of services not specified as inpatient-only, they are appropriately provided as inpatient services in accordance with the 2-midnight benchmark. Estimated LOS (days): 2 days is the estimated time the patient will need to remain in the hospital, assuming treatment plan goals are met and no additional complications. Post-Hospital Plan: Not yet determined Problem Qualifiers (1) Anemia: Qualified Code: D64.9 - Anemia, unspecified type (2) Altered mental status: Qualified Code: R41.0 - Disorientation Rich Minaya July 08, 2016 17:04
[2016-07-08] MEDS ORDERED: SODIUM CHLOR 0.9% 1000 ML INJ 1,000 ML IV PRN ×3 (17:13)
[2016-07-08] MEDS ORDERED: HEPARIN SODIUM - IV 10,000 UNITS/10 ML VIAL PRN (17:15)
[2016-07-08] MEDS ORDERED: MANNITOL 12.5 GM/50 ML VIAL IV PRN (17:15)
[2016-07-08] MEDS ORDERED: HEPARIN SODIUM - IV 10,000 UNITS/10 ML VIAL IVF PRN (17:15)
[2016-07-08] MEDS ORDERED: NITROGLYCERIN 0.4 MG SL 25 TABS/BTL SL PRN (17:15)
[2016-07-08] MEDS ORDERED: cloNIDine HCL 0.1 MG TAB PO PRN (17:15)
[2016-07-08] MEDS ORDERED: ONDANSETRON HCL 4 MG/2 ML VIAL IV PRN (17:15)
[2016-07-08] MEDS ORDERED: diphenhydrAMINE HCL 25 MG CAP PO PRN (17:15)
[2016-07-08] MEDS ORDERED: GENTAMICIN SULFATE (DIALYSIS USE ONLY) 20 MG/2 ML VIAL IV PRN (17:15)
[2016-07-08] MEDS ORDERED: GELATIN 12 MM/7 MM FOAM TOP PRN (17:15)
[2016-07-08] MEDS ORDERED: ALBUMIN HUMAN 25% 25 GM/100 ML BAGP IV PRN (17:15)
[2016-07-08] MEDS ORDERED: DEXTROSE 50% IN WATER 50 ML VIAL(D50) IV PRN (18:00)
[2016-07-08] MEDS: SEVELAMER CARBONATE 800 MG TAB PO SCH (18:00)
--- NOTE | 2016-07-08 18:02 | PD.CONS ---
HPI Service Nephrology Consult Requested By Dr. Mendoza Reason for Consult ESRD with volume overload Primary Care Physician Unknown History of Present Illness Patient is a 56-year-old white female with history of end-stage renal disease on hemodialysis, left forearm AV fistula who has been discharged from Dr. [facility] due to noncompliance patient had her dialysis one week ago and did not keep her appointment, in the emergency room with increasing shortness of breath and confusion, patient chest x-ray showed the evidence of volume overload. She states that she is on dialysis for past 2 years. Review of Systems Constitutional: COMPLAINS OF: Fatigue Respiratory: COMPLAINS OF: Shortness of breath Musculoskeletal: COMPLAINS OF: Back pain Psychiatric: COMPLAINS OF: Confusion Past Family Social History Allergies: Coded Allergies: No Known Allergies (Unverified , 04/08/16) Past Medical History Diabetes ESRD Hypertension Noncompliance Frequent admissions to the hospital due to volume overload Past Surgical History AV fistula in left forearm Reported Medications Reported Meds & Active Scripts Active Protonix (Pantoprazole Sodium) 40 Mg Tab 40 Mg PO BID Hydralazine (Hydralazine HCl) 50 Mg Tab 75 Mg PO BID Coreg (Carvedilol) 12.5 Mg Tab 25 Mg PO Q12HR Metoprolol Succinate ER 24 HR (Metoprolol Succinate) 50 Mg Tab 50 Mg PO HS Clonidine (Clonidine HCl) 0.2 Mg Tab 0.2 Mg PO BID Nifedipine ER 24 HR (Nifedipine) 60 Mg Tab 60 Mg PO BID Amlodipine (Amlodipine Besylate) 10 Mg Tab 10 Mg PO DAILY Lortab (Hydrocodone-Acetaminophen) 5-325 Mg Tab 1 Tab PO Q6H PRN Reported Aspirin Adult Low Strength (Aspirin) 81 Mg Tabdr 81 Mg PO DAILY Vitamin B-12 (Cyanocobalamin) 1,000 Mcg Tab 1,000 Mcg PO DAILY Glyburide 5 Mg Tab 5 Mg PO DAILY Take with meals at the same time each day Renvela (Sevelamer Carbonate) 800 Mg Tab 800 Mg PO TID Take with meals Active Ordered Medications Current Medications Medications (Trade) Dose Ordered Sig/Shaun Route Start Time Stop Time Status Last Admin (Norvasc) 10 mg DAILY PO 07/09/16 09:00 (Ecotrin Ec) 81 mg DAILY PO 07/09/16 09:00 (Coreg) 25 mg Q12HR PO 07/08/16 21:00 (Catapres) 0.2 mg BID PO 07/08/16 21:00 (Apresoline) 75 mg BID PO 07/08/16 21:00 (Procardia Xl) 60 mg BID PO 07/08/16 21:00 (Protonix) 40 mg BID PO 07/08/16 21:00 (Renvela) 800 mg TID PO 07/08/16 18:00 (NS Flush) 2 ml UNSCH PRN IV FLUSH 07/08/16 16:30 (NS Flush) 2 ml BID IV FLUSH 07/08/16 21:00 (Tylenol) 650 mg Q4H PRN PO 07/08/16 16:30 (Zofran Inj) 4 mg Q6H PRN IVP 07/08/16 16:30 (Dulcolax Supp) 10 mg DAILY PRN RECTAL 07/08/16 16:30 (Colace) 100 mg Q12H PO 07/08/16 17:00 (Heparin Inj) 5,000 units Q12H SQ 07/08/16 17:00 Naloxone HCl 0.4 mg 0.4 mg UNSCH PRN IV 07/08/16 16:30 (NS 1000 ml Inj) 1,000 ml @ 0 mls/hr Q0M PRN IV 07/08/16 17:13 Heparin Sodium (Porcine) 8000 units 8,000 units UNSCH PRN IVF 07/08/16 17:15 Sodium Chloride 1,000 ml @ 200 mls/hr Q5H PRN IV 07/08/16 17:13 (NS 1000 ml Inj) 1,000 ml @ 0 mls/hr Q0M PRN IV 07/08/16 17:13 (Mannitol Inj) 12.5 gm UNSCH PRN IV 07/08/16 17:15 (Albumin 25% Inj) 25 gm UNSCH PRN IV 07/08/16 17:15 (NS Flush) 5 ml UNSCH PRN IV FLUSH 07/08/16 17:15 (Heparin Inj) UNSCH PRN .XX 07/08/16 17:15 (Gentamicin (Dialysis) Inj) 20 mg UNSCH PRN IV 07/08/16 17:15 (Zofran Inj) 4 mg UNSCH PRN IV 07/08/16 17:15 (Tylenol) 650 mg UNSCH PRN PO 07/08/16 17:15 (Benadryl) 25 mg UNSCH PRN PO 07/08/16 17:15 (Nitrostat Sl) 0.4 mg UNSCH PRN SL 07/08/16 17:15 (Catapres) 0.1 mg UNSCH PRN PO 07/08/16 17:15 (Epogen Inj) 10,000 units UNSCH PRN IV 07/08/16 17:15 (Gelfoam 12 Mm/7 Mm Top) 1 foam UNSCH PRN TOP 07/08/16 17:15 (D50w (Vial) Inj) 25 ml UNSCH PRN IV 07/08/16 18:00 UNV Family History Noncontributory Social History She denies smoking or alcohol use Physical Exam Vital Signs Vital Signs Date Time Temp Pulse Resp B/P Pulse Ox O2 Delivery O2 Flow Rate FiO2 07/08/16 16:59 16 07/08/16 16:54 82 16 229/109 Nasal Cannula 2 07/08/16 16:54 95 Nasal Cannula 07/08/16 16:10 72 18 242/132 07/08/16 15:00 73 18 253/131 100 07/08/16 13:20 80 96 Room Air 07/08/16 13:08 98.6 82 18 212/107 96 Physical Exam GENERAL: Well-nourished, well-developed patient. SKIN: Warm and dry. HEAD: Normocephalic. EYES: No scleral icterus. No injection or drainage. NECK: Supple, trachea midline. No JVD or lymphadenopathy. CARDIOVASCULAR: Regular rate and rhythm without murmurs, gallops, or rubs. RESPIRATORY: Breath sounds at bilateral radials and rhonchi GASTROINTESTINAL: Abdomen soft, non-tender, nondistended. EXTREMITIES: No cyanosis, 1+ edema. AV fistula left forearm NEUROLOGICAL: Awake, alert, patient is slow to respond Laboratory Laboratory Tests Test 07/08/16 14:00 White Blood Count 8.3 Red Blood Count 2.57 Hemoglobin 7.8 Hematocrit 22.8 Mean Corpuscular Volume 88.6 Mean Corpuscular Hemoglobin 30.2 Mean Corpuscular Hemoglobin 34.1 Concent Red Cell Distribution Width 16.6 Platelet Count 277 Mean Platelet Volume 8.5 Neutrophils (%) (Auto) 77.7 Lymphocytes (%) (Auto) 11.7 Monocytes (%) (Auto) 6.2 Eosinophils (%) (Auto) 3.3 Basophils (%) (Auto) 1.1 Neutrophils # (Auto) 6.4 Lymphocytes # (Auto) 1.0 Monocytes # (Auto) 0.5 Eosinophils # (Auto) 0.3 Basophils # (Auto) 0.1 CBC Comment DIFF FINAL Differential Comment Prothrombin Time 10.7 Prothromb Time International 1.0 Ratio Activated Partial 19.4 Thromboplast Time Blood Gas Puncture Site RT RADIAL Blood Gas Patient Temperature 98.6 Blood Gas HCO3 23 Blood Gas Base Excess -1.2 Blood Gas Oxygen Saturation 95 Arterial Blood pH 7.43 Arterial Blood Partial 35 Pressure CO2 Arterial Blood Partial 88 Pressure O2 Arterial Blood Oxygen Content 10.4 Arterial Blood 1.8 Carboxyhemoglobin Arterial Blood Methemoglobin 0.6 Blood Gas Hemoglobin 7.7 Oxygen Delivery Device NASAL CANNULA Blood Gas Liter Flow 2 Sodium Level 138 Potassium Level 4.0 Chloride Level 101 Carbon Dioxide Level 23.7 Anion Gap 13 Blood Urea Nitrogen 56 Creatinine 9.84 Estimat Glomerular Filtration 4 Rate Random Glucose 160 Calcium Level 9.4 Magnesium Level 2.5 Total Bilirubin 0.7 Aspartate Amino Transf 15 (AST/SGOT) Alanine Aminotransferase 15 (ALT/SGPT) Alkaline Phosphatase 71 Total Creatine Kinase 150 Creatine Kinase MB 2.0 Troponin I 0.73 B-Type Natriuretic Peptide 1889 Total Protein 7.2 Albumin 3.6 Result Diagram: 07/08/16 1400 07/08/16 1400 Imaging Last Impressions Chest X-Ray 07/08/16 1343 Signed Impressions: Service Date/Time: Friday, July 08, 2016 13:51 - CONCLUSION: 1. Cardiomegaly with bibasilar airspace disease. Sharath Martinez MD Head CT 07/08/16 0000 Signed Impressions: Service Date/Time: Friday, July 08, 2016 15:30 - CONCLUSION: 1. No acute intracranial abnormality. 2. Left parietal encephalomalacia. Navneet Gray Jr., MD Assessment and Plan Problem List: (1) End stage renal disease on dialysis Plan: Patient is seen during hemodialysis she is tolerating it well continue to get fluid off she will be scheduled for tomorrow as well She has cardiomegaly on chest x-ray, echocardiogram in May 2016 did not show any pericardial effusion (2) Hypertensive urgency Plan: Continue monitor while in hospital (3) Diabetes mellitus Plan: Monitor blood glucose (4) Non-compliance Plan: Patient is told that to be compliant and social service consult to help her find a dialysis unit Sylvain Freedman MD July 08, 2016 18:02
[2016-07-08] MEDS: EPOETIN ALFA 10,000 UNITS/ML VIAL IV PRN (18:33)
[2016-07-08] MEDS: NIFEdipine 60 MG SUSTAINED RELEASE TAB PO SCH (22:34)
[2016-07-08] MEDS: PANTOPRAZOLE SOD 40 MG DELAYED RELEASE TAB PO SCH (22:35)
[2016-07-08] MEDS: CARVEDILOL 12.5 MG TAB PO SCH (22:35)
[2016-07-08] MEDS: hydrALAZINE HCL 50 MG TAB PO SCH (22:36)
[2016-07-08] MEDS: cloNIDine HCL 0.2 MG TAB PO SCH (22:36)
[2016-07-08] MEDS: SODIUM CHLORIDE 0.9% FLUSH 10 ML FLUSH IV FLUSH SCH (22:37)
[2016-07-08] MEDS: INSULIN ASPART SUPPLEMENTAL SCALE SQ SCH (23:23)
[2016-07-09] VITALS (8 sets, daily range): BP systolic 120–207; BP diastolic 64–95; PULSE 65–73; RESP 20–22; TEMP 95.8–100.7; O2SAT 92–97
[2016-07-09 03:52] LABS: AUTOMATED NEUTROPHIL # 6.5 TH/MM3 (1.8-7.7); BASOPHIL # 0.1 TH/MM3 (0-0.2); BASOPHIL % 1.1 % (0.0-2.0); EOSINOPHIL # 0.3 TH/MM3 (0-0.4); EOSINOPHIL % 3.9 % (0.0-4.0); HEMATOCRIT 22.3 % (35.0-46.0); HEMO FLAGS DIFF FINAL; LYMPH % 9.4 % (9.0-44.0); LYMPHOCYTE # 0.8 TH/MM3 (1.0-4.8); MEAN CELL VOLUME 87.6 FL (80.0-100.0); MEAN CORPUSCULAR HEMOGLOBIN 30.4 PG (27.0-34.0); MEAN CORPUSCULAR HGB CONC 34.7 % (32.0-36.0); MONO % 5.5 % (0.0-8.0); NEUT % 80.1 % (16.0-70.0); PLATELET COUNT 239 TH/MM3 (150-450); RED BLOOD COUNT 2.55 MIL/MM3 (4.00-5.30); RED CELL DISTRIBUTION WIDTH 16.2 % (11.6-17.2); WHITE BLOOD COUNT 8.1 TH/MM3 (4.0-11.0)
[2016-07-09 04:09] LABS: BICARBONATE 27.6 MEQ/L (21.0-32.0); POTASSIUM 3.7 MEQ/L (3.5-5.1)
[2016-07-09] MEDS: HEPARIN SODIUM - SQ 10,000 UNITS/ML VIAL SQ SCH ×2 (05:00→16:12)
[2016-07-09] MEDS: INSULIN ASPART SUPPLEMENTAL SCALE SQ SCH ×4 (06:37→22:03)
[2016-07-09] MEDS: ASPIRIN EC 81 MG TABEC PO SCH (08:08)
[2016-07-09] MEDS: cloNIDine HCL 0.2 MG TAB PO SCH ×2 (08:08→21:50)
[2016-07-09] MEDS: SEVELAMER CARBONATE 800 MG TAB PO SCH ×3 (08:08→16:12)
[2016-07-09] MEDS: SODIUM CHLORIDE 0.9% FLUSH 10 ML FLUSH IV FLUSH SCH ×2 (08:08→21:48)
[2016-07-09] MEDS: CARVEDILOL 12.5 MG TAB PO SCH ×2 (08:08→21:50)
[2016-07-09] MEDS: hydrALAZINE HCL 50 MG TAB PO SCH ×2 (08:08→21:49)
[2016-07-09] MEDS: NIFEdipine 60 MG SUSTAINED RELEASE TAB PO SCH ×2 (08:08→21:49)
[2016-07-09] MEDS: PANTOPRAZOLE SOD 40 MG DELAYED RELEASE TAB PO SCH ×2 (08:08→21:50)
--- NOTE | 2016-07-09 10:28 | EKG ---
Date Performed: 07/08/2016 Time Performed: 21:16:58 PTAGE: 56 years EKG: Sinus rhythm MARKED LEFT AXIS DEVIATION NONSPECIFIC T-WAVE ABNORMALITY PROLONGED QT INTERVAL ABNORMAL ECG PREVIOUS TRACING : 06/16/2016 14.57 DOCTOR: Pablo Montgomery Interpretating Date/Time 07/09/2016 10:22:33
--- NOTE | 2016-07-09 10:36 | HHI.NPPN ---
Subjective History of Present Illness 56 Year old with ESRD and AMS, DM confusion Additional Remarks confusion persists, attention span 5 seconds then fell back to sleep Review of Systems General Constitutional: Fatigue Objective Data Data 07/08/16 07/09/16 19:00 07:00 Output Total 0 ml 3500 ml Balance 0 ml -3500 ml Output Urine Total 0 ml Hemodialysis 3500 ml # Voids 0 # Bowel Movements 0 Vital Signs Date Time Temp Pulse Resp B/P Pulse Ox O2 Delivery O2 Flow Rate FiO2 07/09/16 08:32 95.8 65 20 143/67 95 07/09/16 08:00 66 07/09/16 04:00 97.4 66 20 177/76 92 07/09/16 01:45 193/89 07/09/16 00:00 97.2 66 20 207/95 92 07/08/16 20:00 97.8 74 18 220/97 95 07/08/16 17:15 98.6 76 18 241/112 94 Nasal Cannula 2 07/08/16 16:59 16 07/08/16 16:54 82 16 229/109 Nasal Cannula 2 07/08/16 16:54 95 Nasal Cannula 07/08/16 16:10 72 18 242/132 07/08/16 15:30 78 18 234/132 94 Nasal Cannula 2 07/08/16 15:00 73 18 253/131 100 07/08/16 13:20 80 96 Room Air 07/08/16 13:08 98.6 82 18 212/107 96 -: 07/09/16 0332 07/09/16 0332 Physical Exam General Appearance: Well Developed Neck Neck Exam: Neck Supple Pulmonary Resp Exam: Clear Bilaterally, Breath Sounds Equal Cardiology CV Exam: Regular, Normal Sinus Rhythm Gastrointestinal/Abdomen GI Exam: Soft, Non-Tender, Bowel Sounds Present Extremeties Extremities Exam: No Edema Assessment/Plan Problem List: (1) End stage renal disease on dialysis Plan: Patient is seen during hemodialysis she is tolerating it UF 3 L she is confused could not tell me where she lives staff told me suppose to go to Dr. Keke delgado. non compliant check TSH (2) Hypertensive urgency Plan: Continue monitor while in hospital (3) Diabetes mellitus Plan: Monitor blood glucose (4) Non-compliance Plan: Patient is told that to be compliant and social service consult to help her find a dialysis unit Sylvain Freedman MD July 09, 2016 10:36
[2016-07-09] MEDS: EPOETIN ALFA 10,000 UNITS/ML VIAL IV PRN (11:50)
--- NOTE | 2016-07-09 13:24 | HHI.PR ---
Subjective Remarks Follow up for shortness of breath, ESRD. Patient is doing better now. She underwent hemodialysis today. No fever, chills. Objective Vitals Vital Signs Date Time Temp Pulse Resp B/P Pulse Ox O2 Delivery O2 Flow Rate FiO2 07/09/16 08:32 95.8 65 20 143/67 95 07/09/16 08:00 66 07/09/16 04:00 97.4 66 20 177/76 92 07/09/16 01:45 193/89 07/09/16 00:00 97.2 66 20 207/95 92 07/08/16 20:00 97.8 74 18 220/97 95 07/08/16 17:15 98.6 76 18 241/112 94 Nasal Cannula 2 07/08/16 16:59 16 07/08/16 16:54 82 16 229/109 Nasal Cannula 2 07/08/16 16:54 95 Nasal Cannula 07/08/16 16:10 72 18 242/132 07/08/16 15:30 78 18 234/132 94 Nasal Cannula 2 07/08/16 15:00 73 18 253/131 100 I/O 07/08/16 07/08/16 07/08/16 07/09/16 07/09/16 07/09/16 07:00 15:00 23:00 07:00 15:00 23:00 Output Total 3500 ml 3000 ml Balance -3500 ml -3000 ml Output Urine Total 0 ml Hemodialysis 3500 ml 3000 ml # Voids 0 # Bowel Movements 0 Result Diagram: 07/09/16 0332 07/09/16 0332 Imaging Last Impressions Chest X-Ray 07/08/16 1343 Signed Impressions: Service Date/Time: Friday, July 08, 2016 13:51 - CONCLUSION: 1. Cardiomegaly with bibasilar airspace disease. Sharath Martinez MD Head CT 07/08/16 0000 Signed Impressions: Service Date/Time: Friday, July 08, 2016 15:30 - CONCLUSION: 1. No acute intracranial abnormality. 2. Left parietal encephalomalacia. Navneet Gray Jr., MD Objective Remarks GENERAL: Alert, oriented to person, place, NAD. SKIN: Warm and dry. HEAD: Normocephalic. EYES: No scleral icterus. No injection or drainage. NECK: Supple, trachea midline. No JVD or lymphadenopathy. CARDIOVASCULAR: Regular rate and rhythm without murmurs, gallops, or rubs. RESPIRATORY: Breath sounds equal bilaterally. No accessory muscle use. GASTROINTESTINAL: Abdomen soft, non-tender, nondistended. MUSCULOSKELETAL: No cyanosis, or edema. BACK: Nontender without obvious deformity. No CVA tenderness. A/P Problem List: (1) Hypertensive urgency ICD Code: I16.0 Status: Acute (2) End stage renal disease on dialysis ICD Code: N18.6 Status: Acute (3) Non-compliance ICD Code: Z91.19 Status: Chronic (4) Anemia ICD Code: D64.9 Status: Chronic (5) Altered mental status ICD Code: R41.82 Status: Chronic Assessment and Plan Patient is a 56-year-old female with primary medical history of end-stage renal disease on hemodialysis, anemia, hypertension, DM 2 was been noncompliant with previous readmissions to the hospital who came in today for increased shortness of breath. Patient has not had any dialysis over a week. Recurrent readmissions to the hospital secondary to noncompliance. End-stage renal disease, hemodialysis Noncompliant - Patient has not had any dialysis for about a week prior to this admission. Dialysis done today. - BNP 1889, HALL MONITOR 9.84 on admission. - Chest x-ray showed cardiomegaly with bibasilar airspace disease Hypertension - Currently normotensive. - Continue Amlodipine 10mg, Carvedilol 25mg BID, Hydralazine 75mg BID, Nifedipine 60mg BID, Clonidine 0.2mg BID. - Clonidine 0.1mg PRN Anemia, normocytic normochromic - Chronic disease, ESRD. Previous hospitalizations with multiple blood transfusions. - Hgb 7.8/Hgb 22.8 DM 2 - Glyburide at home hold for now - Continue insulin sliding scale - Start low dose Levemir 8 units QHS. Full code. Heparin SQ. Problem Qualifiers (1) Anemia: Qualified Code: D64.9 - Anemia, unspecified type (2) Altered mental status: Qualified Code: R41.0 - Disorientation Bianca Rosenberg DO July 09, 2016 13:24
[2016-07-09] MEDS: DOCUSATE SODIUM 100 MG CAP PO SCH (16:12)
[2016-07-09] MEDS ORDERED: INSULIN DETEMIR 100 UNITS/ML VIAL SQ SCH (21:00)
[2016-07-10] VITALS (9 sets, daily range): BP systolic 96–134; BP diastolic 52–79; PULSE 57–85; RESP 16–20; TEMP 97.1–98.9; O2SAT 94–98
[2016-07-10] MEDS: HEPARIN SODIUM - SQ 10,000 UNITS/ML VIAL SQ SCH ×2 (05:45→16:57)
[2016-07-10] MEDS: DOCUSATE SODIUM 100 MG CAP PO SCH ×2 (05:45→16:57)
[2016-07-10] MEDS: INSULIN ASPART SUPPLEMENTAL SCALE SQ SCH ×4 (07:14→21:48)
[2016-07-10] MEDS: SODIUM CHLORIDE 0.9% FLUSH 10 ML FLUSH IV FLUSH SCH ×2 (08:15→23:27)
[2016-07-10] MEDS: CARVEDILOL 12.5 MG TAB PO SCH ×2 (08:15→23:20)
[2016-07-10] MEDS: cloNIDine HCL 0.2 MG TAB PO SCH ×2 (08:15→23:21)
[2016-07-10] MEDS: hydrALAZINE HCL 50 MG TAB PO SCH ×2 (08:15→23:22)
[2016-07-10] MEDS: PANTOPRAZOLE SOD 40 MG DELAYED RELEASE TAB PO SCH ×2 (08:15→23:22)
[2016-07-10] MEDS: ASPIRIN EC 81 MG TABEC PO SCH (08:15)
[2016-07-10] MEDS: NIFEdipine 60 MG SUSTAINED RELEASE TAB PO SCH ×2 (08:15→23:20)
[2016-07-10] MEDS: SEVELAMER CARBONATE 800 MG TAB PO SCH ×3 (08:15→17:01)
--- NOTE | 2016-07-10 11:39 | HHI.PR ---
Subjective Remarks Follow up for shortness of breath, ESRD. Patient is currently doing well. Resting in bed. Denies any chest pain, shortness of breath, fever or chills. Objective Vitals Vital Signs Date Time Temp Pulse Resp B/P Pulse Ox O2 Delivery O2 Flow Rate FiO2 07/10/16 09:23 96 Nasal Cannula 2.00 07/10/16 08:00 98.7 64 18 119/73 95 07/10/16 04:00 97.9 63 20 110/52 94 07/10/16 00:00 98.9 67 20 133/63 95 07/09/16 20:25 95 Nasal Cannula 2.00 07/09/16 20:00 100.7 73 22 144/75 95 07/09/16 15:32 96.0 68 20 120/64 97 I/O 07/09/16 07/09/16 07/09/16 07/10/16 07/10/16 07/10/16 07:00 15:00 23:00 07:00 15:00 23:00 Intake Total 240 ml 60 ml 240 ml Output Total 3000 ml Balance -3000 ml 240 ml 60 ml 240 ml Intake Oral 240 ml 60 ml 240 ml Hemodialysis 3000 ml # Voids 0 0 0 # Bowel Movements 0 0 0 Result Diagram: 07/09/16 0332 07/09/16 0332 Imaging Last Impressions Chest X-Ray 07/08/16 1343 Signed Impressions: Service Date/Time: Friday, July 08, 2016 13:51 - CONCLUSION: 1. Cardiomegaly with bibasilar airspace disease. Sharath Martinez MD Head CT 07/08/16 0000 Signed Impressions: Service Date/Time: Friday, July 08, 2016 15:30 - CONCLUSION: 1. No acute intracranial abnormality. 2. Left parietal encephalomalacia. Navneet Gray Jr., MD Objective Remarks GENERAL: Alert, oriented to person, place, NAD. SKIN: Warm and dry. HEAD: Normocephalic. EYES: No scleral icterus. No injection or drainage. NECK: Supple, trachea midline. No JVD or lymphadenopathy. CARDIOVASCULAR: Regular rate and rhythm without murmurs, gallops, or rubs. RESPIRATORY: Breath sounds equal bilaterally. No accessory muscle use. GASTROINTESTINAL: Abdomen soft, non-tender, nondistended. MUSCULOSKELETAL: No cyanosis, or edema. BACK: Nontender without obvious deformity. No CVA tenderness. A/P Problem List: (1) Hypertensive urgency ICD Code: I16.0 Status: Acute (2) End stage renal disease on dialysis ICD Code: N18.6 Status: Acute (3) Non-compliance ICD Code: Z91.19 Status: Chronic (4) Anemia ICD Code: D64.9 Status: Chronic (5) Altered mental status ICD Code: R41.82 Status: Chronic Assessment and Plan Patient is a 56-year-old female with primary medical history of end-stage renal disease on hemodialysis, anemia, hypertension, DM 2 was been noncompliant with previous readmissions to the hospital who came in today for increased shortness of breath. Patient has not had any dialysis over a week. Recurrent readmissions to the hospital secondary to noncompliance. End-stage renal disease, hemodialysis Noncompliant - Patient has not had any dialysis for about a week prior to this admission. Receiving dialysis in the hospital. - Will consult CM to look into outpatient dialysis. - BNP 1889, PODIATRIC MEDICINE DOCTOR 9.84 on admission. - Chest x-ray showed cardiomegaly with bibasilar airspace disease Hypertension - Currently normotensive. - Continue Amlodipine 10mg, Carvedilol 25mg BID, Hydralazine 75mg BID, Nifedipine 60mg BID, Clonidine 0.2mg BID. - Clonidine 0.1mg PRN Anemia, normocytic normochromic - Chronic disease, ESRD. Previous hospitalizations with multiple blood transfusions. - Hgb 7.8/Hgb 22.8 DM 2 - Glyburide at home - hold for now - Continue insulin sliding scale - Increase Levemir 8 units to 12 units QHS. Full code. Heparin SQ. Problem Qualifiers (1) Anemia: Qualified Code: D64.9 - Anemia, unspecified type (2) Altered mental status: Qualified Code: R41.0 - Disorientation Bianca Rosenberg DO July 10, 2016 11:39
--- NOTE | 2016-07-10 19:19 | HHI.NPPN ---
Subjective History of Present Illness 56 Year old with ESRD and AMS, DM confusion Additional Remarks tired Review of Systems General Constitutional: Fatigue Objective Data Data 07/09/16 07/10/16 19:00 07:00 Intake Total 300 ml Output Total 3000 ml Balance -3000 ml 300 ml Intake Oral 300 ml Hemodialysis 3000 ml # Voids 0 # Bowel Movements 0 Vital Signs Date Time Temp Pulse Resp B/P Pulse Ox O2 Delivery O2 Flow Rate FiO2 07/10/16 17:55 97 Nasal Cannula 2.00 07/10/16 16:00 98.5 85 16 109/62 94 07/10/16 16:00 97.1 57 19 131/79 97 07/10/16 12:00 97.3 62 18 96/57 95 07/10/16 09:23 96 Nasal Cannula 2.00 07/10/16 08:00 98.7 64 18 119/73 95 07/10/16 04:00 97.9 63 20 110/52 94 07/10/16 00:00 98.9 67 20 133/63 95 07/09/16 20:25 95 Nasal Cannula 2.00 07/09/16 20:00 100.7 73 22 144/75 95 -: 07/09/16 0332 07/09/16 0332 Physical Exam General Appearance: Well Developed Neck Neck Exam: Neck Supple Pulmonary Resp Exam: Clear Bilaterally, Breath Sounds Equal Cardiology CV Exam: Regular, Normal Sinus Rhythm Gastrointestinal/Abdomen GI Exam: Soft, Non-Tender, Bowel Sounds Present Extremeties Extremities Exam: No Edema Assessment/Plan Problem List: (1) End stage renal disease on dialysis Plan: Patient is on HD MWF staff told me suppose to go to Dr. Keke delgado. non compliant TSH normal (2) Hypertensive urgency Plan: Continue monitor while in hospital (3) Diabetes mellitus Plan: Monitor blood glucose (4) Non-compliance Plan: Patient is told that to be compliant and social service consult to help her find a dialysis unit Sylvain Freedman MD July 10, 2016 19:19
[2016-07-10] MEDS ORDERED: INSULIN DETEMIR 100 UNITS/ML VIAL SQ SCH (21:00)
[2016-07-11] MEDS: DOCUSATE SODIUM 100 MG CAP PO SCH (05:00)
[2016-07-11 05:42] VITALS: BP 122/75; PULSE 63; RESP 18; TEMP 97.6; O2SAT 94
[2016-07-11] MEDS: HEPARIN SODIUM - SQ 10,000 UNITS/ML VIAL SQ SCH (05:55)
[2016-07-11] MEDS: INSULIN ASPART SUPPLEMENTAL SCALE SQ SCH ×2 (05:55→12:55)
[2016-07-11] MEDS: ASPIRIN EC 81 MG TABEC PO SCH (08:04)
[2016-07-11] MEDS: SEVELAMER CARBONATE 800 MG TAB PO SCH ×2 (08:04→13:18)
[2016-07-11] MEDS: PANTOPRAZOLE SOD 40 MG DELAYED RELEASE TAB PO SCH (08:04)
[2016-07-11] MEDS: SODIUM CHLORIDE 0.9% FLUSH 10 ML FLUSH IV FLUSH SCH (08:04)
[2016-07-11] MEDS: cloNIDine HCL 0.2 MG TAB PO SCH (08:20)
[2016-07-11] MEDS: hydrALAZINE HCL 50 MG TAB PO SCH (08:20)
[2016-07-11] MEDS: CARVEDILOL 12.5 MG TAB PO SCH (08:20)
[2016-07-11] MEDS: NIFEdipine 60 MG SUSTAINED RELEASE TAB PO SCH (08:21)
[2016-07-11] MEDS: EPOETIN ALFA 10,000 UNITS/ML VIAL IV PRN (09:43)
--- NOTE | 2016-07-11 11:42 | HHI.DS ---
Discharge Summary Admission Date July 08, 2016 at 16:20 Discharge Date: July 11, 2016 Admitting Diagnosis acute on chronic kidney disease, CHF, altered mental status (1) Hypertensive urgency ICD Code: I16.0 Diagnosis: Principal (2) End stage renal disease on dialysis ICD Code: N18.6 Diagnosis: Principal (3) Non-compliance ICD Code: Z91.19 (4) Anemia ICD Code: D64.9 (5) Altered mental status ICD Code: R41.82 Procedures None. Brief History - From Admission Patient is a 56-year-old female with primary medical history of end-stage renal disease on hemodialysis, anemia, hypertension, DM 2 was been noncompliant with previous readmissions to the hospital who came in today for increased shortness of breath. Patient states that she has had not had hemodialysis for over a week. Previously saw Dr. Rubio. States that she was told that they don't want to see her anymore in dialysis, and mentioned that he did not provide any reason for dropping her. Poor historian. Confused but follows commands. States that shortness of breath has been on and off but has been worse despite morning, called EMS and she was taken to the hospital. She mentioned that her was also taken to the hospital as a patient. Reports bilateral feet swelling. Reports shortness of breath has improved with O2 nasal cannula. Complaints of mild abdominal pain, 3/10, nonradiating, mid to left side of the abdomen, aggravated by movement and palpation, relieved by rest. Otherwise,denies chest pain, palpitations, headaches, dizziness. Denies fevers, chills, n/v/d. Denies hematuria, dysuria. CT of the head showed no acute intracranial abnormality. Left parietal encephalomalacia. Chest x-ray showed Cardiomegaly with bibasilar airspace disease. Labs showed hemoglobin 7.8/hematocrit 22.8, neutrophils 77.7, BUN 56, creatinine 9.84, EGFR for, random glucose 160 Troponin 0.73 BNP 1889 CBC/BMP: 07/09/16 0332 07/09/16 0332 Significant Findings Laboratory Tests Test 5/07/08/16 07/09/16 14:00 22:41 03:32 Activated Partial 19.4 SEC Thromboplast Time (24.3-30.1) Arterial Blood pH 7.43 (7.380-7.420) Arterial Blood Partial 35 mmHg (38-42) Pressure CO2 Arterial Blood Oxygen Content 10.4 Vol % (12.0-20.0) Blood Gas Hemoglobin 7.7 G/DL (12.0-16.0) Blood Urea Nitrogen 56 MG/DL (7-18) 44 MG/DL (7-18) Creatinine 9.84 MG/DL 8.28 MG/DL (0.50-1.00) (0.50-1.00) Estimat Glomerular Filtration 4 ML/MIN (>89) 5 ML/MIN (>89) Rate Random Glucose 160 MG/DL 194 MG/DL (74-106) (74-106) Troponin I 0.73 NG/ML 0.74 NG/ML 0.72 NG/ML (0.02-0.05) (0.02-0.05) (0.02-0.05) B-Type Natriuretic Peptide 1889 PG/ML (0-100) Red Blood Count 2.57 MIL/MM3 2.55 MIL/MM3 (4.00-5.30) (4.00-5.30) Hemoglobin 7.8 GM/DL 7.8 GM/DL (11.6-15.3) (11.6-15.3) Hematocrit 22.8 % 22.3 % (35.0-46.0) (35.0-46.0) Neutrophils (%) (Auto) 77.7 % 80.1 % (16.0-70.0) (16.0-70.0) Lymphocytes # (Auto) 0.8 TH/MM3 (1.0-4.8) Imaging Last Impressions Chest X-Ray 07/08/16 1343 Signed Impressions: Service Date/Time: Friday, July 08, 2016 13:51 - CONCLUSION: 1. Cardiomegaly with bibasilar airspace disease. Sharath Martinez MD Head CT 07/08/16 0000 Signed Impressions: Service Date/Time: Friday, July 08, 2016 15:30 - CONCLUSION: 1. No acute intracranial abnormality. 2. Left parietal encephalomalacia. Navneet Gray Jr., MD PE at Discharge GENERAL: Alert, oriented to person, place, NAD. SKIN: Warm and dry. HEAD: Normocephalic. EYES: No scleral icterus. No injection or drainage. NECK: Supple, trachea midline. No JVD or lymphadenopathy. CARDIOVASCULAR: Regular rate and rhythm without murmurs, gallops, or rubs. RESPIRATORY: Breath sounds equal bilaterally. No accessory muscle use. GASTROINTESTINAL: Abdomen soft, non-tender, nondistended. MUSCULOSKELETAL: No cyanosis, or edema. BACK: Nontender without obvious deformity. No CVA tenderness. Pt update on day of discharge Patient is doing well. No acute concerns. Hospital Course Patient is a 56-year-old female with primary medical history of end-stage renal disease on hemodialysis, anemia, hypertension, DM 2 was been noncompliant with previous readmissions to the hospital who came in today for increased shortness of breath. Patient has not had any dialysis over a week. Recurrent readmissions to the hospital secondary to noncompliance. End-stage renal disease, hemodialysis Noncompliant - Patient has not had any dialysis for about a week prior to this admission. Received dialysis in the hospital. - Outpatient dialysis arrangement made by Case management. Patient is instructed to follow up with dialysis center. 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 - Chest x-ray showed cardiomegaly with bibasilar airspace disease Hypertension - Currently normotensive. - Continue Amlodipine 10mg, Carvedilol 25mg BID, Hydralazine 75mg BID, Nifedipine 60mg BID, Clonidine 0.2mg BID. - Clonidine 0.1mg PRN Anemia, normocytic normochromic - Chronic disease, ESRD. Previous hospitalizations with multiple blood transfusions. - Hgb 7.8/Hgb 22.8 DM 2 - Glyburide at home - hold for now - Continue insulin sliding scale - Increase Levemir 8 units to 12 units QHS. Pt Condition on Discharge: Good Discharge Disposition: Discharge Home Discharge Time: > 30 minutes Discharge Instructions DIET: Follow Instructions for: Diabetic Diet Activities you can perform: Regular-No Restrictions Follow up Referrals: PCP Follow-up - 1 Week Continued Medications: Amlodipine (Amlodipine) 10 Mg Tab 10 MG PO DAILY Blood Pressure Management #[address] (Aspirin Adult Low Strength) 81 Mg Tabdr 81 MG PO DAILY antiplatelet TAB Carvedilol (Coreg) 12.5 Mg Tab 25 MG PO Q12HR #60 Ref 1 TAB Clonidine (Clonidine) 0.2 Mg Tab 0.2 MG PO BID Blood Pressure Management #60 Ref 0 TAB Cyanocobalamin (Vitamin B-12) 1,000 Mcg Tab 1000 MCG PO DAILY Nutritional Supplement #1 Ref 0 BOTTLE Glyburide (Glyburide) 5 Mg Tab 5 MG PO DAILY Take with meals at the same time each day Blood Sugar Management # 30 Ref 0 TAB Hydralazine (Hydralazine) 50 Mg Tab 75 MG PO BID #60 Ref 1 TAB Hydrocodone-Acetaminophen (Lortab) 5-325 Mg Tab 1 TAB PO Q6H PRN PAIN #10 Ref 0 TAB Nifedipine ER 24 HR (Nifedipine ER 24 HR) 60 Mg Tab 60 MG PO BID Blood Pressure Management #60 TAB Pantoprazole (Protonix) 40 Mg Tab 40 MG PO BID Ulcer Prevention #60 Ref 0 TAB Sevelamer Carbonate (Renvela) 800 Mg Tab 800 MG PO TID Take with meals Control phosphorous levels #90 Ref 0 TAB Discontinued Medications: Metoprolol Succinate ER 24 HR (Metoprolol Succinate ER 24 HR) 50 Mg Tab 50 MG PO HS #30 Ref 1 TAB Bianca Rosenberg DO July 11, 2016 11:42
--- NOTE | 2016-07-11 11:59 | HHI.NPPN ---
Subjective History of Present Illness 56 Year old with ESRD and AMS, DM confusion Additional Remarks tired Review of Systems General Constitutional: Fatigue Objective Data Data 07/10/16 07/11/16 19:00 07:00 Intake Total 240 ml Balance 240 ml Intake Oral 240 ml # Voids 0 # Bowel Movements 0 Vital Signs Date Time Temp Pulse Resp B/P Pulse Ox O2 Delivery O2 Flow Rate FiO2 07/11/16 07:46 Nasal Cannula 2.00 07/11/16 05:42 97.6 63 18 122/75 94 07/10/16 23:55 98.3 59 18 134/65 98 07/10/16 20:21 97.9 62 18 115/61 94 07/10/16 17:55 97 Nasal Cannula 2.00 07/10/16 16:00 98.5 85 16 109/62 94 07/10/16 16:00 97.1 57 19 131/79 97 07/10/16 12:00 97.3 62 18 96/57 95 -: 07/09/16 0332 07/09/16 0332 Physical Exam General Appearance: Well Developed Neck Neck Exam: Neck Supple Pulmonary Resp Exam: Clear Bilaterally, Breath Sounds Equal Cardiology CV Exam: Regular, Normal Sinus Rhythm Gastrointestinal/Abdomen GI Exam: Soft, Non-Tender, Bowel Sounds Present Extremeties Extremities Exam: No Edema Assessment/Plan Problem List: (1) End stage renal disease on dialysis Plan: Patient is on HD MWF hemodialysis proceedings noted 3 L UF confused staff told me suppose to go to Dr. [facility]. non compliant TSH normal Neurological deficit persists, Alpha-galactosidase ordered to rule out Fabry disease (2) Hypertensive urgency Plan: Continue monitor while in hospital (3) Diabetes mellitus Plan: Monitor blood glucose (4) Non-compliance Plan: Patient is told that to be compliant and social service consult to help her find a dialysis unit Sylvain Freedman MD July 11, 2016 11:59
[2016-07-11 12:55] VITALS: BP 162/80; PULSE 59; RESP 18; TEMP 98.1; O2SAT 96
--- NOTE | 2016-07-11 14:01 | HHI.FF ---
Face to Face Verification Diagnosis: (1) ESRD (end stage renal disease) (2) Accelerated hypertension (3) Diabetes mellitus Physical Therapy Order: Evaluate and Treat, Improve ambulation, Strength and gait training Home Health Nursing Order: Signs/symptoms of disease process Diabetic education Medication education-adverse effect Nursing assessment with vital signs I have seen patient Ryanne Patel on 07/11/16. My clinical findings support the need for the requested home health care services because: Ltd mobility - disease progression Deconditioned w/ increased weakness Need for psychosocial assistance High risk of falls I certify that my clinical findings support that this patient is homebound because: Unsafe to leave home unassisted Need for psychosocial assistance Unable to use public transportation Bianca Rosenberg DO July 11, 2016 2:01 pm
[2016-07-11] MEDS ORDERED: HYDR-3533 PO (14:20)
== END 2016-07-11 15:41 | disposition home or self-care (01) ==
LOC: NEPC 12:58 → NEDA 16:20 → INTOOBSV 16:20 → N05A 20:40
PROVIDERS: ADMIT Hospitalist; ATTEND Hospitalist
DX: R06.02 Shortness of breath (principal); E87.79 Other fluid overload; N18.6 End stage renal disease; R60.0 Localized edema; Z99.2 Dependence on renal dialysis; I13.2 Hypertensive heart and chronic kidney disease with heart failure and with stage 5 chronic kidney disease, or end stage renal disease; E11.22 Type 2 diabetes mellitus with diabetic chronic kidney disease; E66.9 Obesity, unspecified; E78.00 Pure hypercholesterolemia, unspecified; I63.9 Cerebral infarction, unspecified; I25.10 Atherosclerotic heart disease of native coronary artery without angina pectoris; K21.9 Gastro-esophageal reflux disease without esophagitis; Z79.899 Other long term (current) drug therapy; Z79.84 Long term (current) use of oral hypoglycemic drugs; D64.9 Anemia, unspecified; R74.8 Abnormal levels of other serum enzymes; Z91.19 Patient's noncompliance with other medical treatment and regimen; R41.0 Disorientation, unspecified; I50.9 Heart failure, unspecified; G93.89 Other specified disorders of brain; I16.0 Hypertensive urgency; G93.40 Encephalopathy, unspecified; R94.31 Abnormal electrocardiogram [ECG] [EKG]
CPT/HCPCS: 36600; 70450; 71010; 80048; 80053; 80074; 82550; 82552; 82805; 82948; 83735; 83880; 84443; 84484; 85025; 85610; 85730; 93005; 96374; 96375; 97162; 99285; G0257; G0378; G8987; G8988; J1644; J1815; J1940; P9612; Q4081; 90935

== ENCOUNTER 2016-08-29 12:13 | Inpatient (IN) | payer MEDICARE, OTHER ==
[~2016-08-29] VITALS: Ht 165.1 cm; Wt 101.1 kg
[~2016-08-29 12:13] MED LIST changes: -METO50TA11 PO
[2016-08-29 12:25] VITALS: BP 154/103; PULSE 69; RESP 16; TEMP 98.3; O2SAT 96
--- NOTE | 2016-08-29 12:49 | PD ---
HPI . Generalized abdominal pain and nausea 1 day Chief Complaint: GI Complaint Time Seen by Provider: 12:49 Travel History International Travel<30 days: No Contact w/Intl Traveler<30days: No Traveled to known affect area: No History of Present Illness HPI 56-year-old female with end-stage renal disease on dialysis, DM, anemia and hypertension here with complaints of abdominal pain and nausea for 1 day. Patient is an extremely poor historian and keeps telling me that she was supposed to go to dialysis today and has no information for me. She keeps telling me that I need to contact her , who is not present. Currently our nursing staff is trying to get in touch with him. Upon further questioning she tells me that she has generalized abdominal pain and nausea. She keeps telling me that she feels sick, but has a very hard time describing what is going on. She has no idea who her conference services coordinator is or which dialysis center she visits. She denies any chest pain or shortness of breath. 1309: The nurse reached out to the patient's , who also did not provide any additional information. He tells us that she receive dialysis on Thursday , but he is uncertain of the name of facility. Apparently the facility is located in the [facility]. One of our emergency room techs got in touch with the company, but they cannot confirm or deny whether or not the patient actually has an appointment for dialysis. We will proceed with workup and treatment. PFSH Past Medical History Anemia: Yes Arthritis: No Cancer: No Cardiovascular Problems: Yes (HX OF HEART ATTACK, TIA, HYPERTENSION) High Cholesterol: Yes Congestive Heart Failure: Yes Cerebrovascular Accident: Yes Coronary Artery Disease: Yes Diabetes: Yes Dialysis: Yes Diminished Hearing: No GERD: Yes Hypertension: Yes Musculoskeletal: No Psychiatric: No Reproductive: No Respiratory: No Pancreatitis: Yes Renal Failure: Yes (on dialysis, however has not gone for a week) : 1 Miscarriage: 1 Past Surgical History Abdominal Surgery: No Cardiac Surgery: No Ear Surgery: No Endocrine Surgery: No Eye Surgery: No Genitourinary Surgery: No Gynecologic Surgery: No Oral Surgery: No Thoracic Surgery: No Other Surgery: Yes (LT FOREARM FISTULA) Social History Alcohol Use: No Tobacco Use: No Substance Use: No Allergies-Medications (Allergen,Severity, Reaction): Coded Allergies: No Known Allergies (Unverified , 08/29/16) Reported Meds & Prescriptions Reported Meds & Active Scripts Active Protonix (Pantoprazole Sodium) 40 Mg Tab 40 Mg PO BID Coreg (Carvedilol) 12.5 Mg Tab 25 Mg PO Q12HR Clonidine (Clonidine HCl) 0.2 Mg Tab 0.2 Mg PO BID Nifedipine ER 24 HR (Nifedipine) 60 Mg Tab 60 Mg PO BID Amlodipine (Amlodipine Besylate) 10 Mg Tab 10 Mg PO DAILY Reported Metoprolol Succinate ER 24 HR (Metoprolol Succinate) Unknown Strength Tab Unknown Dose PO HS Aspirin Adult Low Strength (Aspirin) 81 Mg Tabdr 81 Mg PO DAILY Vitamin B-12 (Cyanocobalamin) 1,000 Mcg Tab 1,000 Mcg PO DAILY Glyburide 5 Mg Tab 5 Mg PO DAILY Take with meals at the same time each day Renvela (Sevelamer Carbonate) 800 Mg Tab 800 Mg PO TID Take with meals Review of Systems ROS Limitations: Poor Historian General / Constitutional: No: Fever Eyes: No: Visual changes HENT: No: Headaches Cardiovascular: No: Chest Pain or Discomfort Respiratory: No: Shortness of Breath Gastrointestinal: Positive: Nausea, Abdominal Pain (generalized) Genitourinary: No: Dysuria Musculoskeletal: No: Pain Skin: No Rash Neurologic: No: Weakness Psychiatric: No: Depression Endocrine: No: Polydipsia Hematologic/Lymphatic: No: Easy Bruising Physical Exam Narrative initial exam done in ambulance brink and limited due to HIPPA laws GENERAL: AAO x 1, mild distress, Well-nourished, well-developed patient. SKIN: Warm and dry. No visible rashes or bruising. Dry skin HEAD: Normocephalic and atraumatic. EYES: No scleral icterus. No injection or drainage. EOM intact, PERRLA ENT: No nasal drainage noted. Mucous membranes pink. Airway patent. NECK: Supple, trachea midline. No JVD. CARDIOVASCULAR: Regular rate and rhythm without murmurs, gallops, or rubs. RESPIRATORY: Breath sounds equally diminished bilaterally. No accessory muscle use. No rhonchi or rales. GASTROINTESTINAL: Abdomen soft, non-tender, nondistended. EXTREMITIES: No cyanosis or edema. BACK: Nontender without obvious deformity. No CVA tenderness. NEURO: CN II-12 intact, mail list processor strength normal b/l, UE and LE 5/5, no focal deficits PSYCH: AAO x 1, flat affect Data Data Last Documented VS Vital Signs Date Time Temp Pulse Resp B/P Pulse Ox O2 Delivery O2 Flow Rate FiO2 08/29/16 14:36 97.3 66 23 228/112 96 Room Air Orders Complete Blood Count With Diff (08/29/16 12:38) Comprehensive Metabolic Panel (08/29/16 12:38) Urinalysis - C+S If Indicated (08/29/16 12:38) Iv Access Insert/Monitor (08/29/16 12:38) Oxygen Administration (08/29/16 12:38) Oximetry (08/29/16 12:38) Lipase (08/29/16 12:38) Ondansetron Inj (Zofran Inj) (08/29/16 13:00) Sodium Polysty Sulfate Liq (Kayexalate L (08/29/16 14:15) Sodium Bicarbonate 8.4% Inj (Sodium Bica (08/29/16 14:15) Calcium Chloride Inj (Calcium Chloride I (08/29/16 14:15) Electrocardiogram (08/29/16 ) Hydralazine Inj (Apresoline Inj) (08/29/16 14:45) Insulin Human Regular Inj (Novolin R Inj (08/29/16 15:15) Dextrose 50% In Timbo (Syr) Inj (D50w (Syr (08/29/16 15:15) Admit Order (Ed Use Only) (08/29/16 15:40) Labs Laboratory Tests Test 08/29/16 12:45 White Blood Count 7.7 TH/MM3 Red Blood Count 3.02 MIL/MM3 Hemoglobin 9.2 GM/DL Hematocrit 28.1 % Mean Corpuscular Volume 93.2 FL Mean Corpuscular Hemoglobin 30.3 PG Mean Corpuscular Hemoglobin 32.6 % Concent Red Cell Distribution Width 17.4 % Platelet Count 213 TH/MM3 Mean Platelet Volume 8.3 FL Neutrophils (%) (Auto) 74.6 % Lymphocytes (%) (Auto) 15.5 % Monocytes (%) (Auto) 6.5 % Eosinophils (%) (Auto) 2.3 % Basophils (%) (Auto) 1.1 % Neutrophils # (Auto) 5.7 TH/MM3 Lymphocytes # (Auto) 1.2 TH/MM3 Monocytes # (Auto) 0.5 TH/MM3 Eosinophils # (Auto) 0.2 TH/MM3 Basophils # (Auto) 0.1 TH/MM3 CBC Comment DIFF FINAL Differential Comment Sodium Level 131 MEQ/L Potassium Level 8.1 MEQ/L Chloride Level 96 MEQ/L Carbon Dioxide Level 18.8 MEQ/L Anion Gap 16 MEQ/L Blood Urea Nitrogen 148 MG/DL Creatinine 12.57 MG/DL Estimat Glomerular Filtration 3 ML/MIN Rate Random Glucose 187 MG/DL Calcium Level 8.9 MG/DL Total Bilirubin 0.5 MG/DL Aspartate Amino Transf 14 U/L (AST/SGOT) Alanine Aminotransferase 14 U/L (ALT/SGPT) Alkaline Phosphatase 65 U/L Total Protein 7.8 GM/DL Albumin 3.6 GM/DL Lipase 842 U/L [facility] Medical Decision Making Medical Screen Exam Complete: Yes Emergency Medical Condition: Yes Medical Record Reviewed: Yes Differential Diagnosis End-stage renal disease, abdominal pain, gastritis, pancreatitis Narrative Course 56-year-old female here with complaints of abdominal pain and nausea. She is also overdue for dialysis. Patient is a very poor historian and not much information was able to be obtained. General labs have been ordered. I have ordered some Zofran for this patient. Patient awaiting bed placement. The oncoming provider will determine patient's disposition. 1410: I have resumed care of this patient. Her potassium is elevated. We have provided her with sodium bicarb, calcium, and Kayexalate. I have tried talking with the patient again and she is unreliable historian. She tells me she just doesn't feel well. Patient's blood pressure was elevated. She was given Hydralazine. 1453: Discussed with Dr. Gray brass molder. 1510: Case Discussed with Dr. Epstein We provided the patient with D50 and insulin. 1517: Residents will be used to admit patient; if necessary patient will then be sent to ICU 1542: Discussed with Dr. Db Rosenberg. Patient will be admitted to [facility]. She also scheduled for dialysis. He will resume her care. Diagnosis Primary Impression: End stage renal disease on dialysis Additional Impressions: Hyperkalemia Pancreatitis Qualified Code: K85.90 - Acute pancreatitis, unspecified complication status, unspecified pancreatitis type Admitting Information Admitting Physician Requests: Admit Condition: Stable Alpa Amezquita Aug 29, 2016 12:49
[2016-08-29] MEDS ORDERED: ONDANSETRON HCL 4 MG/2 ML VIAL IV PUSH ONE (13:00)
[2016-08-29 13:01] LABS: AUTOMATED NEUTROPHIL # 5.7 TH/MM3 (1.8-7.7); BASOPHIL # 0.1 TH/MM3 (0-0.2); BASOPHIL % 1.1 % (0.0-2.0); EOSINOPHIL # 0.2 TH/MM3 (0-0.4); EOSINOPHIL % 2.3 % (0.0-4.0); HEMATOCRIT 28.1 % (35.0-46.0); HEMO FLAGS DIFF FINAL; LYMPH % 15.5 % (9.0-44.0); LYMPHOCYTE # 1.2 TH/MM3 (1.0-4.8); MEAN CELL VOLUME 93.2 FL (80.0-100.0); MEAN CORPUSCULAR HEMOGLOBIN 30.3 PG (27.0-34.0); MEAN CORPUSCULAR HGB CONC 32.6 % (32.0-36.0); MONO % 6.5 % (0.0-8.0); NEUT % 74.6 % (16.0-70.0); PLATELET COUNT 213 TH/MM3 (150-450); RED BLOOD COUNT 3.02 MIL/MM3 (4.00-5.30); RED CELL DISTRIBUTION WIDTH 17.4 % (11.6-17.2); WHITE BLOOD COUNT 7.7 TH/MM3 (4.0-11.0)
[2016-08-29] MEDS ORDERED: METO50TA11 PO (13:02)
[2016-08-29 13:26] LABS: ALT (GPT) 14 U/L (10-53); ANION GAP 16 MEQ/L (5-15); AST (GOT) 14 U/L (15-37); BICARBONATE 18.8 MEQ/L (21.0-32.0); CHLORIDE 96 MEQ/L (98-107); GLOMERULAR FILTRATION RATE 3 ML/MIN (>89); SODIUM (NA) 131 MEQ/L (136-145)
[2016-08-29 13:31] LABS: ALKALINE PHOSPHATASE 65 U/L (45-117); BLOOD UREA NITROGEN 148 MG/DL (7-18)
[2016-08-29 13:32] LABS: POTASSIUM 8.1 MEQ/L (3.5-5.1)
[2016-08-29 13:33] LABS: TOTAL BILIRUBIN ADULT 0.5 MG/DL (0.2-1.0)
[2016-08-29] MEDS ORDERED: SODIUM POLYSTYRENE SULFONATE SUSP 15 GM/60 ML CUP PO ONE (14:15)
[2016-08-29] MEDS ORDERED: CALCIUM CHLORIDE 10% SOLN 1 GRAM/10 ML SYR IV PUSH ONE (14:15)
[2016-08-29] MEDS ORDERED: SODIUM BICARBONATE 8.4% INJ 50 MEQ/50 ML SYR IV PUSH ONE (14:15)
[2016-08-29 14:34] VITALS: O2SAT 96
[2016-08-29 14:36] VITALS: BP 228/112; PULSE 66; RESP 23; TEMP 97.3; O2SAT 96
[2016-08-29] MEDS ORDERED: hydrALAZINE HCL 20 MG/ML VIAL IV PUSH ONE (14:45)
[2016-08-29] MEDS ORDERED: INSULIN HUMAN REGULAR 1,000 UNITS/10 ML VIAL IV PUSH ONE (15:15)
[2016-08-29] MEDS ORDERED: DEXTROSE 50% IN WATER 50 ML SYRINGE IV ONE (15:15)
[2016-08-29] MEDS ORDERED: MAGNESIUM HYDROXIDE SUSP 30 ML CUP PO PRN (15:45)
[2016-08-29] MEDS ORDERED: BISACODYL 10 MG SUPP RECTAL PRN (15:45)
[2016-08-29] MEDS ORDERED: ACETAMINOPHEN 325 MG TAB PO PRN ×2 (15:45→16:45)
[2016-08-29] MEDS ORDERED: NALOXONE HCL 0.4 MG/ML AMP IV PRN (15:45)
[2016-08-29] MEDS ORDERED: LACTULOSE SYRUP 20 GM/30 ML CUP PO PRN (15:45)
[2016-08-29] MEDS ORDERED: ONDANSETRON HCL 4 MG/2 ML VIAL IVP PRN (15:45)
[2016-08-29] MEDS ORDERED: SENNOSIDES 8.6 MG TAB PO PRN (15:45)
[2016-08-29] MEDS ORDERED: SODIUM CHLORIDE 0.9% FLUSH 10 ML FLUSH IV FLUSH PRN ×2 (15:45→16:45)
--- NOTE | 2016-08-29 16:08 | PD.CONS ---
HPI Service Nephrology Consult Requested By Reason for Consult ESRD, hyperkalemia Primary Care Physician No Primary Care Physician History of Present Illness This patient was seen in the ER, apparently she was brought by the as she had become lethargic. She was noted to be hyperkalemic with serum potassium of 8.1 in the ER. I was notified by ER physician and the soaker. I went to the ER and evaluated by the patient. Emergency dialysis was arranged. She is now on 1K, UF goal is 5 liters. She was hypertensive. Patient also has some memory deficits. Some confusion is noted. Poor historian. Apparently was discharged to Dr. Davies's clinic after her previous admission in June. It is unclear when her last dialysis was. Review of Systems ROS Limitations: Clinical Condition Cardiovascular: DENIES: Chest pain, Palpitations, Dyspnea on Exertion Gastrointestinal: DENIES: Abdominal pain, Black stools, Bloody stools Musculoskeletal: DENIES: Joint pain Immunologic/allergic: DENIES: Eczema Past Family Social History Allergies: Coded Allergies: No Known Allergies (Unverified , 08/29/16) Past Medical History ESRD Type 2 diabetes. Hypertension Anemia Non compliance. Reported Medications Reported Meds & Active Scripts Active Protonix (Pantoprazole Sodium) 40 Mg Tab 40 Mg PO BID Coreg (Carvedilol) 12.5 Mg Tab 25 Mg PO Q12HR Clonidine (Clonidine HCl) 0.2 Mg Tab 0.2 Mg PO BID Nifedipine ER 24 HR (Nifedipine) 60 Mg Tab 60 Mg PO BID Amlodipine (Amlodipine Besylate) 10 Mg Tab 10 Mg PO DAILY Reported Metoprolol Succinate ER 24 HR (Metoprolol Succinate) Unknown Strength Tab Unknown Dose PO HS Aspirin Adult Low Strength (Aspirin) 81 Mg Tabdr 81 Mg PO DAILY Vitamin B-12 (Cyanocobalamin) 1,000 Mcg Tab 1,000 Mcg PO DAILY Glyburide 5 Mg Tab 5 Mg PO DAILY Take with meals at the same time each day Renvela (Sevelamer Carbonate) 800 Mg Tab 800 Mg PO TID Take with meals Active Ordered Medications Current Medications Medications (Trade) Dose Ordered Sig/Shaun Route Start Time Stop Time Status Last Admin (NS Flush) 2 ml UNSCH PRN IV FLUSH 08/29/16 15:45 UNV (NS Flush) 2 ml BID IV FLUSH 08/29/16 21:00 UNV (Tylenol) 650 mg Q4H PRN PO 08/29/16 15:45 UNV (Zofran Inj) 4 mg Q6H PRN IVP 08/29/16 15:45 UNV (Heparin Inj) 5,000 units Q12H SQ 08/29/16 15:45 UNV (Narcan Inj) 0.4 mg UNSCH PRN IV 08/29/16 15:45 UNV (Mary Kay-Colace) 1 tab BID PO 08/29/16 21:00 UNV (Milk Of Magnesia Liq) 30 ml Q12H PRN PO 08/29/16 15:45 UNV (Senokot) 17.2 mg Q12H PRN PO 08/29/16 15:45 UNV (Dulcolax Supp) 10 mg DAILY PRN RECTAL 08/29/16 15:45 UNV (Lactulose Liq) 30 ml DAILY PRN PO 08/29/16 15:45 UNV Family History non contributory, reviewed. Social History . Originally from [place]. No smoking or ETOH according to the patient. Physical Exam Vital Signs Vital Signs Date Time Temp Pulse Resp B/P Pulse Ox O2 Delivery O2 Flow Rate FiO2 08/29/16 14:36 97.3 66 23 228/112 96 Room Air 08/29/16 14:34 96 Room Air 08/29/16 14:34 96 Room Air 08/29/16 12:25 98.3 69 16 154/103 96 Physical Exam GENERAL: confusion, some disorientation. SKIN: Warm and dry. HEAD: Normocephalic. EYES: No scleral icterus. No injection or drainage. NECK: Supple, trachea midline. No JVD or lymphadenopathy. CARDIOVASCULAR: Regular rate and rhythm without murmurs, gallops, or rubs. RESPIRATORY: Breath sounds equal bilaterally. No accessory muscle use. GASTROINTESTINAL: Abdomen soft, non-tender, nondistended. Obese. MUSCULOSKELETAL: No cyanosis, or edema. BACK: Nontender without obvious deformity. No CVA tenderness. Laboratory Laboratory Tests Test 08/29/16 12:45 White Blood Count 7.7 Red Blood Count 3.02 Hemoglobin 9.2 Hematocrit 28.1 Mean Corpuscular Volume 93.2 Mean Corpuscular Hemoglobin 30.3 Mean Corpuscular Hemoglobin 32.6 Concent Red Cell Distribution Width 17.4 Platelet Count 213 Mean Platelet Volume 8.3 Neutrophils (%) (Auto) 74.6 Lymphocytes (%) (Auto) 15.5 Monocytes (%) (Auto) 6.5 Eosinophils (%) (Auto) 2.3 Basophils (%) (Auto) 1.1 Neutrophils # (Auto) 5.7 Lymphocytes # (Auto) 1.2 Monocytes # (Auto) 0.5 Eosinophils # (Auto) 0.2 Basophils # (Auto) 0.1 CBC Comment DIFF FINAL Differential Comment Sodium Level 131 Potassium Level 8.1 Chloride Level 96 Carbon Dioxide Level 18.8 Anion Gap 16 Blood Urea Nitrogen 148 Creatinine 12.57 Estimat Glomerular Filtration 3 Rate Random Glucose 187 Calcium Level 8.9 Total Bilirubin 0.5 Aspartate Amino Transf 14 (AST/SGOT) Alanine Aminotransferase 14 (ALT/SGPT) Alkaline Phosphatase 65 Total Protein 7.8 Albumin 3.6 Lipase 842 Result Diagram: 08/29/16 1245 08/29/16 1245 Assessment and Plan Problem List: (1) End stage renal disease on dialysis Plan: dialysis today, 1K, UF 5 liters planned, will continue to monitor. May need dialysis again tomorrow. Avoid IVF Avoid Gadolinium. (2) Hyperkalemia Plan: Has been given Calcium, Kayexalate, and bicarbonate by the ER physician. I suggested giving insulin and dextrose as well. Emergency dialysis was arranged , and she was later seen on dialysis. Monitor. (3) Hypertensive urgency Plan: likely due to fluid overload. Monitor after dialysis and fluid removal. Restart home medications. (4) Non-compliance Plan: Compliance with dialysis treatments is essential. Counseling given. (5) Altered mental status Plan: Could be due to uremia? Monitor. (6) Anemia Plan: Hold Epogen due to poorly controlled hypertension. Reevaluate. Assessment and Plan Thanks for the consult. Ian Epstein MD Aug 29, 2016 16:08
[2016-08-29] MEDS ORDERED: cloNIDine HCL 0.1 MG TAB PO PRN ×2 (16:15→16:45)
[2016-08-29] MEDS ORDERED: GLUCAGON 1 MG/ML VIAL OTHER PRN (16:30)
[2016-08-29] MEDS ORDERED: DEXTROSE 50% IN WATER 50 ML VIAL(D50) IV PRN (16:30)
--- NOTE | 2016-08-29 16:31 | HHI.HP ---
[facility] No Primary Care Physician Admission Diagnosis Renal Failure/ Hyperkalemia/Pancreatitis Diagnoses: Chief Complaint: Abdominal pain, nausea, ESRD, hyperkalemia Travel History International Travel<30 Days: No Contact w/Intl Traveler <30 Da: No Traveled to Known Affected Are: No History of Present Illness Ms. Rowan is a 56-year-old female with a history of ESRD, hypertension, diabetes mellitus who presented to the emergency department today due to abdominal pain, nausea. She usually gets dialysis on Thursday, Thursday and Thursday. She apparently received dialysis on Thursday. However today it no one came to pick her up and thus she did not get her dialysis. Patient is not able to provide much information. At the time of this interview she was on her way to dialysis unit for urgent dialysis due to hyperkalemia. Patient denies any chest pain, shortness of breath, fever or chills. Denies any changes in bowel habits. She expresses desire to go home. ED workup indicated Review of Systems ROS Limitations: Altered Mental Status Except as stated in HPI: all other systems reviewed are Neg Past Family Social History Past Medical History End-stage renal disease on hemodialysis Anemia with multiple blood transfusions Hypertension, with episodes of urgency DM 2 Past Surgical History Left AV fistula placement Reported Medications Protonix (Pantoprazole Sodium) 40 Mg Tab 40 Mg PO BID Coreg (Carvedilol) 12.5 Mg Tab 25 Mg PO Q12HR Clonidine (Clonidine HCl) 0.2 Mg Tab 0.2 Mg PO BID Nifedipine ER 24 HR (Nifedipine) 60 Mg Tab 60 Mg PO BID Amlodipine (Amlodipine Besylate) 10 Mg Tab 10 Mg PO DAILY Metoprolol Succinate ER 24 HR (Metoprolol Succinate) Unknown Strength Tab Unknown Dose PO HS Aspirin Adult Low Strength (Aspirin) 81 Mg Tabdr 81 Mg PO DAILY Vitamin B-12 (Cyanocobalamin) 1,000 Mcg Tab 1,000 Mcg PO DAILY Glyburide 5 Mg Tab 5 Mg PO DAILY Take with meals at the same time each day Renvela (Sevelamer Carbonate) 800 Mg Tab 800 Mg PO TID Take with meals Allergies: Coded Allergies: No Known Allergies (Unverified , 08/29/16) Family History Mother has diabetes, Social History Denies alcohol use Denies tobacco use Denies illicit drug use Physical Exam Vital Signs Vital Signs Date Time Temp Pulse Resp B/P Pulse Ox O2 Delivery O2 Flow Rate FiO2 08/29/16 14:36 97.3 66 23 228/112 96 Room Air 08/29/16 14:34 96 Room Air 08/29/16 14:34 96 Room Air 08/29/16 12:25 98.3 69 16 154/103 96 Physical Exam GENERAL: Alert, oriented to self, place ([facility]), place ([place]). Knows the name of Prestalia Caba. Overall Disheveled appearance. SKIN: No rashes, ecchymoses or lesions. Warm and dry. HEAD: Atraumatic. Normocephalic. No temporal or scalp tenderness. EYES: Pupils equal round and reactive. No injection or drainage. ENT: Nose without bleeding, purulent drainage or septal hematoma. Airway patent. NECK: Trachea midline. No lymphadenopathy. Supple, nontender, no meningeal signs. CARDIOVASCULAR: Regular rate and rhythm without murmurs, gallops, or rubs. No JVD. RESPIRATORY: Clear to auscultation. Breath sounds equal bilaterally. No wheezes , rales, or rhonchi. GASTROINTESTINAL: Abdomen soft, non-tender, nondistended. No guarding. MUSCULOSKELETAL: Extremities without clubbing, cyanosis, or edema. NEUROLOGICAL: Awake and alert. Cranial nerves II through XII intact. No focal neurological deficits. Speech is somewhat slow. Laboratory Laboratory Tests Test 08/29/16 12:45 White Blood Count 7.7 Red Blood Count 3.02 Hemoglobin 9.2 Hematocrit 28.1 Mean Corpuscular Volume 93.2 Mean Corpuscular Hemoglobin 30.3 Mean Corpuscular Hemoglobin 32.6 Concent Red Cell Distribution Width 17.4 Platelet Count 213 Mean Platelet Volume 8.3 Neutrophils (%) (Auto) 74.6 Lymphocytes (%) (Auto) 15.5 Monocytes (%) (Auto) 6.5 Eosinophils (%) (Auto) 2.3 Basophils (%) (Auto) 1.1 Neutrophils # (Auto) 5.7 Lymphocytes # (Auto) 1.2 Monocytes # (Auto) 0.5 Eosinophils # (Auto) 0.2 Basophils # (Auto) 0.1 CBC Comment DIFF FINAL Differential Comment Sodium Level 131 Potassium Level 8.1 Chloride Level 96 Carbon Dioxide Level 18.8 Anion Gap 16 Blood Urea Nitrogen 148 Creatinine 12.57 Estimat Glomerular Filtration 3 Rate Random Glucose 187 Calcium Level 8.9 Total Bilirubin 0.5 Aspartate Amino Transf 14 (AST/SGOT) Alanine Aminotransferase 14 (ALT/SGPT) Alkaline Phosphatase 65 Total Protein 7.8 Albumin 3.6 Lipase 842 Result Diagram: 08/29/16 1245 08/29/16 1245 Assessment and Plan Problem List: (1) End stage renal disease on dialysis ICD Code: N18.6 Status: Acute (2) Hypertensive urgency ICD Code: I16.0 Status: Acute (3) Hyperkalemia ICD Code: E87.5 Status: Acute Assessment and Plan Ms. Patel is a 56-year-old female with a history of ESRD, hypertension, diabetes mellitus who presents to the emergency department due to nausea and abdominal pain. ED workup indicated hypokalemia with potassium 8.1. Patient reports receiving dialysis on Thursday and today she missed dialysis because no one came to pick her up. Nephrology was consulted from the emergency department and patient is currently undergoing hemodialysis. - ESRD on dialysis Thursday. - Hypokalemia with potassium 8.1. - BUN 148, Creatinine 12.57 - Patient has a history of noncompliance. - Nephrology on board. Patient will be dialyzed today. Continue Sevelamer 800mg PO TID. - Patient received calcium, insulin, Kayexalate in the emergency department. - Lipase elevation is likely due to ESRD and not pancreatitis. Lipase is 842 (upper normal 393). - Hypertensive urgency - BP 228/112. - We'll continue home medications nifedipine 60 mg twice a day, Carvedilol 12.5mg BID. Clonidine 0.1mg PRN - Patient's home medication also includes amlodipine. We'll hold off using amlodipine since we will continue Nifedipine. - If another blood pressure medication is needed, we'll consider hydralazine. Patient was previously on Hydralazine as well. - Diabetes mellitus - Start Levemir 5 units daily at bedtime, sliding scale insulin. Titrate as needed. - Patient takes Glyburide at home. Full code. Heparin SQ. Physician Certification 2 Midnight Certification Type: Admission for Inpatient Services Order for Inpatient Services The services are ordered in accordance with Medicare regulations or non- Medicare payer requirements, as applicable. In the case of services not specified as inpatient-only, they are appropriately provided as inpatient services in accordance with the 2-midnight benchmark. Estimated LOS (days): 2 days is the estimated time the patient will need to remain in the hospital, assuming treatment plan goals are met and no additional complications. Post-Hospital Plan: Home Bianca Rosenberg DO Aug 29, 2016 4:31 pm
[2016-08-29] MEDS ORDERED: SODIUM CHLOR 0.9% 1000 ML INJ 1,000 ML IV PRN ×2 (16:43)
[2016-08-29] MEDS ORDERED: NITROGLYCERIN 0.4 MG SL 25 TABS/BTL SL PRN (16:45)
[2016-08-29] MEDS ORDERED: HEPARIN SODIUM - IV 10,000 UNITS/10 ML VIAL PRN (16:45)
[2016-08-29] MEDS ORDERED: diphenhydrAMINE HCL 25 MG CAP PO PRN (16:45)
[2016-08-29] MEDS ORDERED: HEPARIN SODIUM - IV 10,000 UNITS/10 ML VIAL IVF PRN (16:45)
[2016-08-29] MEDS ORDERED: GENTAMICIN SULFATE (DIALYSIS USE ONLY) 20 MG/2 ML VIAL IV PRN (16:45)
[2016-08-29] MEDS ORDERED: ONDANSETRON HCL 4 MG/2 ML VIAL IV PRN (16:45)
[2016-08-29] MEDS ORDERED: GELATIN 12 MM/7 MM FOAM TOP PRN (16:45)
[2016-08-29] MEDS ORDERED: MANNITOL 12.5 GM/50 ML VIAL IV PRN (16:45)
[2016-08-29] MEDS ORDERED: ALBUMIN HUMAN 25% 25 GM/100 ML BAGP IV PRN (16:45)
[2016-08-29] MEDS: SODIUM CHLOR 0.9% 1000 ML INJ 1,000 ML IV PRN ×2 (17:48→21:47)
[2016-08-29] MEDS: HEPARIN SODIUM - SQ 10,000 UNITS/ML VIAL SQ SCH (18:00)
[2016-08-29] MEDS: SEVELAMER CARBONATE 800 MG TAB PO SCH (18:00)
[2016-08-29 20:31] VITALS: BP_SYST 170; BP_SYST 191; BP_DIAS 149; BP_DIAS 88; PULSE 70; RESP 18; TEMP 97.7; O2SAT 95
[2016-08-29] MEDS: SODIUM CHLORIDE 0.9% FLUSH 10 ML FLUSH IV FLUSH SCH (21:00)
[2016-08-29] MEDS: INSULIN ASPART SUPPLEMENTAL SCALE SQ SCH (21:00)
[2016-08-29] MEDS ORDERED: INSULIN DETEMIR 100 UNITS/ML VIAL SQ SCH (21:00)
[2016-08-29] MEDS: DOCUSATE SODIUM 50 MG/SENNA 8.6 MG TAB PO SCH (21:00)
[2016-08-29 21:02] VITALS: PULSE 68
[2016-08-29] MEDS: CARVEDILOL 12.5 MG TAB PO SCH (21:42)
[2016-08-29] MEDS: NIFEdipine 60 MG SUSTAINED RELEASE TAB PO SCH (21:43)
[2016-08-29] MEDS: PANTOPRAZOLE SOD 40 MG DELAYED RELEASE TAB PO SCH (21:43)
[2016-08-29 23:43] VITALS: BP 153/72; PULSE 74; RESP 18; TEMP 99.1; O2SAT 92
[2016-08-30 04:20] VITALS: BP 169/84; PULSE 65; RESP 18; TEMP 98.4; O2SAT 98
[2016-08-30] MEDS: HEPARIN SODIUM - SQ 10,000 UNITS/ML VIAL SQ SCH ×2 (05:39→17:25)
[2016-08-30] MEDS: INSULIN ASPART SUPPLEMENTAL SCALE SQ SCH ×3 (06:09→16:00)
[2016-08-30 07:47] LABS: AUTOMATED NEUTROPHIL # 5.1 TH/MM3 (1.8-7.7); BASOPHIL # 0.1 TH/MM3 (0-0.2); BASOPHIL % 0.9 % (0.0-2.0); EOSINOPHIL # 0.2 TH/MM3 (0-0.4); EOSINOPHIL % 3.2 % (0.0-4.0); HEMATOCRIT 29.7 % (35.0-46.0); HEMO FLAGS DIFF FINAL; LYMPH % 16.9 % (9.0-44.0); LYMPHOCYTE # 1.3 TH/MM3 (1.0-4.8); MEAN CELL VOLUME 93.3 FL (80.0-100.0); MEAN CORPUSCULAR HEMOGLOBIN 29.9 PG (27.0-34.0); MONO % 9.7 % (0.0-8.0); NEUT % 69.3 % (16.0-70.0); PLATELET COUNT 234 TH/MM3 (150-450); RED BLOOD COUNT 3.19 MIL/MM3 (4.00-5.30); WHITE BLOOD COUNT 7.4 TH/MM3 (4.0-11.0)
[2016-08-30] MEDS: CARVEDILOL 12.5 MG TAB PO SCH (07:53)
[2016-08-30] MEDS: PANTOPRAZOLE SOD 40 MG DELAYED RELEASE TAB PO SCH (07:53)
[2016-08-30] MEDS: SODIUM CHLORIDE 0.9% FLUSH 10 ML FLUSH IV FLUSH SCH (07:54)
[2016-08-30] MEDS: NIFEdipine 60 MG SUSTAINED RELEASE TAB PO SCH (07:54)
[2016-08-30] MEDS: DOCUSATE SODIUM 50 MG/SENNA 8.6 MG TAB PO SCH (07:54)
[2016-08-30] MEDS: SEVELAMER CARBONATE 800 MG TAB PO SCH ×3 (07:54→17:24)
[2016-08-30 08:00] VITALS: BP 188/81; PULSE 74; PULSE 76; RESP 20; TEMP 97.7; O2SAT 97
[2016-08-30 08:25] LABS: BICARBONATE 26.5 MEQ/L (21.0-32.0); POTASSIUM 4.4 MEQ/L (3.5-5.1)
[2016-08-30] MEDS ORDERED: ASPIRIN EC 81 MG TABEC PO SCH (09:00)
[2016-08-30] MEDS ORDERED: CYANOCOBALAMIN 1,000 MCG TAB PO SCH (09:00)
[2016-08-30 09:45] VITALS: O2SAT 93
--- NOTE | 2016-08-30 11:07 | HHI.NPPN ---
Subjective Interval History Dialyzed yesterday. Hyperkalemia has resolved. Plan is for dialysis again. Review of Systems General Constitutional: Fatigue Objective Data Data 08/29/16 08/30/16 19:00 07:00 Intake Total 240 ml Output Total 0 ml Balance 240 ml Intake Oral 240 ml Output Urine Total 0 ml # Bowel Movements 0 Vital Signs Date Time Temp Pulse Resp B/P Pulse Ox O2 Delivery O2 Flow Rate FiO2 08/30/16 09:45 93 21 08/30/16 08:00 Room Air 08/30/16 08:00 97.7 74 20 188/81 97 08/30/16 08:00 76 08/30/16 04:20 98.4 65 18 169/84 98 08/30/16 00:00 Room Air 08/29/16 23:43 99.1 74 18 153/72 92 08/29/16 21:02 68 08/29/16 20:31 97.7 70 18 191/149 95 170/88 08/29/16 14:36 97.3 66 23 228/112 96 Room Air 08/29/16 14:34 96 Room Air 08/29/16 14:34 96 Room Air 08/29/16 12:25 98.3 69 16 154/103 96 -: 08/30/16 0637 08/30/16 0637 Physical Exam General Appearance: Well Developed Appearance Remarks obese. Throat Throat Exam: Oral Mucosa [place] & Moist Pulmonary Resp Exam: Clear Bilaterally Cardiology CV Exam: Regular, Normal Sinus Rhythm Gastrointestinal/Abdomen GI Exam: Soft, Non-Tender Musculoskeletal MS Exam: Joints Intact Extremeties Extremities Exam: No Edema Neurologic Neuro Exam: Moving All Extremities Assessment/Plan Problem List: (1) End stage renal disease on dialysis Plan: Usually dialyzes MWF. She is non compliant, presented with uremia and hyperkalemia. Dialyzed yesterday. Hyperkalemia has improved. I will dialyze her again today. (2) Hyperkalemia Plan: Improved after dialysis yesterday. (3) Hypertensive urgency Plan: BP is high, continue home medications. Consider JOSUE/ARB. I have started Losartan, in dialysis patients, there should be no concern for ARB induced hyperkalemia. Additional fluid removal today at dialysis may also improve hypertension. (4) Non-compliance Plan: Compliance with dialysis treatments is essential. Counseling given. (5) Altered mental status Plan: Could be due to uremia? Monitor. (6) Anemia Plan: Hold Epogen due to poorly controlled hypertension. Reevaluate. Plan She can be discharged after dialysis. Ian Epstein MD Aug 30, 2016 11:07
[2016-08-30 12:00] VITALS: BP 141/67; PULSE 69; RESP 20; TEMP 97.3; O2SAT 92
--- NOTE | 2016-08-30 12:39 | HHI.PR ---
Subjective Remarks Follow up for hyperkalemia, ESRD. Patient is doing well. No acute concerns. Had a good night. No fever, chills. Objective Vitals Vital Signs Date Time Temp Pulse Resp B/P Pulse Ox O2 Delivery O2 Flow Rate FiO2 08/30/16 09:45 93 21 08/30/16 08:00 Room Air 08/30/16 08:00 97.7 74 20 188/81 97 08/30/16 08:00 76 08/30/16 04:20 98.4 65 18 169/84 98 08/30/16 00:00 Room Air 08/29/16 23:43 99.1 74 18 153/72 92 08/29/16 21:02 68 08/29/16 20:31 97.7 70 18 191/149 95 170/88 08/29/16 14:36 97.3 66 23 228/112 96 Room Air 08/29/16 14:34 96 Room Air 08/29/16 14:34 96 Room Air I/O 08/29/16 08/29/16 08/29/16 08/30/16 08/30/16 08/30/16 07:00 15:00 23:00 07:00 15:00 23:00 Intake Total 240 ml Output Total 0 ml Balance 240 ml Intake Oral 240 ml Output Urine Total 0 ml # Bowel Movements 0 Result Diagram: 08/30/1637 08/30/16 0637 Objective Remarks GENERAL: Much more alert, coherent today. NAD. SKIN: Warm and dry. HEAD: Normocephalic. EYES: No scleral icterus. No injection or drainage. NECK: Supple, trachea midline. No JVD or lymphadenopathy. CARDIOVASCULAR: Regular rate and rhythm without murmurs, gallops, or rubs. RESPIRATORY: Breath sounds equal bilaterally. No accessory muscle use. GASTROINTESTINAL: Abdomen soft, non-tender, nondistended. MUSCULOSKELETAL: No cyanosis, or edema. BACK: Nontender without obvious deformity. No CVA tenderness. Procedures Dialysis on 08/29/2016, 08/30/2016 A/P Problem List: (1) End stage renal disease on dialysis ICD Code: N18.6 Status: Acute (2) Hypertensive urgency ICD Code: I16.0 Status: Acute (3) Hyperkalemia ICD Code: E87.5 Status: Acute Assessment and Plan Ms. Patel is a 56-year-old female with a history of ESRD, hypertension, diabetes mellitus who presents to the emergency department due to nausea and abdominal pain. ED workup indicated hypokalemia with potassium 8.1. Patient reports receiving dialysis on Thursday and today she missed dialysis because no one came to pick her up. Nephrology was consulted from the emergency department and patient is currently undergoing hemodialysis. - ESRD on dialysis Thursday. - Hypokalemia with potassium 8.1 --> 4.4. - BUN 148, Creatinine 12.57 --> 8.18. - Patient has a history of noncompliance. - Nephrology on board. Patient dialyzed on 08/29/2016. Continue Sevelamer 800mg PO TID. - Patient received calcium, insulin, Kayexalate in the emergency department. - Lipase elevation is likely due to ESRD and not pancreatitis. Lipase is 842 (upper normal 393). - Patient will receive dialysis today given. Nephrology indicated that patient can be discharged after dialysis today. - Hypertensive urgency - BP 228/112. - We'll continue home medications nifedipine 60 mg twice a day, Carvedilol 12.5mg BID. Clonidine 0.1mg PRN - Start Hydralazine 25mg PO Q8hrs. - Diabetes mellitus - Levemir 5 units daily at bedtime, sliding scale insulin. Titrate as needed. - Patient takes Glyburide at home. Full code. Heparin SQ. Discharge patient to home Condition on discharge: Improved Renal, diabetic Diet as tolerated Ad Trisha activity Rx written: Discontinued amlodipine and metoprolol succinate. Patient is currently on nifedipine and carvedilol. Follow-up with primary care physician within one week. Bianca Rosenberg DO Aug 30, 2016 12:39
[2016-08-30] MEDS ORDERED: hydrALAZINE HCL 25 MG TAB PO SCH (14:00)
--- NOTE | 2016-08-30 16:49 | EKG ---
Date Performed: 08/29/2016 Time Performed: 14:25:30 PTAGE: 56 years EKG: Sinus rhythm WITH FIRST DEGREE AV BLOCK POSSIBLE ANTERIOR MYOCARDIAL INFARCTION INFERIOR MYOCARDIAL INFARCTION AB NORMAL ECG INTERPRETATION BASED ON A DEFAULT AGE OF 40 YEARS Compared to the PREVIOUS TRACING , no significant change DOCTOR: Jasvir Torres Interpretating Date/Time 08/30/2016 16:48:41
[2016-08-30 17:20] VITALS: BP 152/74; PULSE 72; RESP 20; TEMP 97.1; O2SAT 93
[2016-08-31] MEDS ORDERED: LOSARTAN 50 MG TAB PO SCH (09:00)
== END 2016-08-30 18:10 | disposition home or self-care (01) | DRG 640 ==
LOC: NEDAMB 12:13 → NEDA 15:42 → N04B 20:32
PROVIDERS: ADMIT Hospitalist; ATTEND Hospitalist
DX: E87.5 Hyperkalemia (principal); N18.6 End stage renal disease; I13.2 Hypertensive heart and chronic kidney disease with heart failure and with stage 5 chronic kidney disease, or end stage renal disease; E11.22 Type 2 diabetes mellitus with diabetic chronic kidney disease; E87.6 Hypokalemia; Z99.2 Dependence on renal dialysis; I16.0 Hypertensive urgency; Z79.4 Long term (current) use of insulin; I50.9 Heart failure, unspecified; Z91.19 Patient's noncompliance with other medical treatment and regimen; R41.82 Altered mental status, unspecified; D64.9 Anemia, unspecified; E78.00 Pure hypercholesterolemia, unspecified; I25.10 Atherosclerotic heart disease of native coronary artery without angina pectoris; I25.2 Old myocardial infarction; K21.9 Gastro-esophageal reflux disease without esophagitis; Z86.73 Personal history of transient ischemic attack (TIA), and cerebral infarction without residual deficits
CPT/HCPCS: 80048; 80053; 82948; 83690; 85025; 90935; 93005; 96374; 96375; J0360; J1644; J1815; J2405; J7030

== ENCOUNTER 2016-09-16 13:19 | Emergency (ER) | payer MEDICARE, OTHER ==
[~2016-09-16] VITALS: Ht 160 cm; Wt 90.0 kg
[~2016-09-16 13:19] MED LIST changes: -AMLO10TA2 PO; -HYDR-3533 PO; -HYDR50TA15 PO
[2016-09-16 13:20] VITALS: BP 193/91; PULSE 99; RESP 16; TEMP 98.1; O2SAT 95
--- NOTE | 2016-09-16 17:17 | PD ---
HPI Chief Complaint: Injury Time Seen by Provider: 16:30 Travel History International Travel<30 days: No Contact w/Intl Traveler<30days: No Traveled to known affect area: No History of Present Illness HPI Patient is a 56-year-old female presenting to the emergency department for evaluation of left lower leg pain and swelling. Patient states it's been going on for 1 week, she states she took Tylenol today with no significant relief of her symptoms. She denies any numbness, tingling, redness. There are no alleviating factors, patient states the pain is exacerbated when she attempts to walk. PFSH Past Medical History Anemia: Yes Arthritis: No Cancer: No Cardiovascular Problems: Yes High Cholesterol: Yes Congestive Heart Failure: Yes Cerebrovascular Accident: Yes Coronary Artery Disease: Yes Diabetes: Yes Patient Takes Glucophage: Yes Dialysis: Yes Diminished Hearing: No GERD: Yes Hypertension: Yes Implanted Vascular Access Dvce: No Musculoskeletal: No Psychiatric: No Reproductive: No Respiratory: No Pancreatitis: Yes Renal Failure: Yes (on dialysis m/w/f) Tetanus Vaccination: Unknown Influenza Vaccination: No ?: Not : 1 Miscarriage: 1 Past Surgical History Abdominal Surgery: No Cardiac Surgery: No Ear Surgery: No Endocrine Surgery: No Eye Surgery: No Genitourinary Surgery: No Gynecologic Surgery: No Oral Surgery: No Thoracic Surgery: No Other Surgery: Yes (LT FOREARM FISTULA) Social History Alcohol Use: No Tobacco Use: No Substance Use: No Allergies-Medications (Allergen,Severity, Reaction): Coded Allergies: No Known Allergies (Unverified , 09/16/16) Reported Meds & Prescriptions Reported Meds & Active Scripts Active Protonix (Pantoprazole Sodium) 40 Mg Tab 40 Mg PO BID Coreg (Carvedilol) 12.5 Mg Tab 25 Mg PO Q12HR Clonidine (Clonidine HCl) 0.2 Mg Tab 0.2 Mg PO BID Nifedipine ER 24 HR (Nifedipine) 60 Mg Tab 60 Mg PO BID Reported Aspirin Adult Low Strength (Aspirin) 81 Mg Tabdr 81 Mg PO DAILY Vitamin B-12 (Cyanocobalamin) 1,000 Mcg Tab 1,000 Mcg PO DAILY Glyburide 5 Mg Tab 5 Mg PO DAILY Take with meals at the same time each day Renvela (Sevelamer Carbonate) 800 Mg Tab 800 Mg PO TID Take with meals Review of Systems Except as stated in HPI: all other systems reviewed are Neg Musculoskeletal: Positive: Myalgias, Edema, Pain Physical Exam Narrative GENERAL: Overweight, well-developed, alert female. Resting comfortably in no acute distress. SKIN: Warm and dry. HEAD: Atraumatic. Normocephalic. EYES: Pupils equal and round. No scleral icterus. No injection or drainage. ENT: No nasal bleeding or discharge. Mucous membranes pink and moist. NECK: Trachea midline. No JVD. CARDIOVASCULAR: Regular rate and rhythm. Left forearm AV fistula, positive thrill, positive bruit. RESPIRATORY: No accessory muscle use. Clear to auscultation. Breath sounds equal bilaterally. GASTROINTESTINAL: Abdomen soft, non-tender, nondistended. Hepatic and splenic margins not palpable. MUSCULOSKELETAL: Extremities without clubbing, cyanosis. No obvious deformities. Left lower leg is edematous, nonpitting, no erythema noted. Positive Homans sign. 2+ positive dorsalis pedis pulse bilaterally. NEUROLOGICAL: Awake and alert. No obvious cranial nerve deficits. Motor grossly within normal limits. Five out of 5 muscle strength in the arms and legs. Normal speech. PSYCHIATRIC: Appropriate mood and affect; insight and judgment normal. Data Data Last Documented VS Vital Signs Date Time Temp Pulse Resp B/P Pulse Ox O2 Delivery O2 Flow Rate FiO2 09/16/16 17:50 83 17 200/107 96 Room Air 09/16/16 13:20 98.1 Orders Us Leg Venous Doppler (09/16/16 ) Clonidine (Catapres) (09/16/16 18:15) [facility] Medical Decision Making Medical Screen Exam Complete: Yes Emergency Medical Condition: Yes Interpretation(s) Vital Signs Date Time Temp Pulse Resp B/P Pulse Ox O2 Delivery O2 Flow Rate FiO2 09/16/16 13:20 98.1 99 16 193/91 95 Differential Diagnosis Dependent edema versus Strauss cyst versus DVT versus other Narrative Course Patient is a 56-year-old female presenting for evaluation of left lower leg pain ongoing for 1 week. She is neuro vascularly intact. Ultrasound ordered and pending. Ultrasound the left lower leg shows subcutaneous edema, it is negative for DVT. BP elevated on arrival, vital signs reassessed and blood pressure remains elevated, clonidine x [address] dose [address] Discuss[address] with Dr. Allred. Pt will be discharged home. She was encouraged to elevate extremity, obtain compression garments. She is encouraged follow-up with her primary doctor. She is advised to avoid skipping doses of blood pressure medications and take as directed. She is encouraged to return to emergency department immediately for any new or worsening symptoms. Patient verbalized understanding of instructions. Patient stable for discharge. Diagnosis Primary Impression: Leg edema, left Additional Impression: Hypertension Qualified Code: I10 - Hypertension, unspecified type Referrals: Primary Care Physician Patient Instructions: Chronic Hypertension (ED), General Instructions, Leg Edema (ED) Additional Instructions: Rest, elevate extremity Obtain compression garment Follow-up with your primary doctor Return to emergency department for any new or worsening symptoms Home medications as previously prescribed, do not skip doses Med/Other Pt SpecificInfo: No Change to Meds Disposition: 01 DISCHARGE HOME Condition: Stable Tayler Vera Sep 16, 2016 17:17
[2016-09-16 17:50] VITALS: BP 200/107; PULSE 83; RESP 17; O2SAT 16; O2SAT 96
--- NOTE | 2016-09-16 17:53 | RADRPT ---
EXAM DATE/TIME: 09/16/2016 17:22 [facility] COMPARISON: No previous studies available for comparison. INDICATIONS : Left leg pain and swelling. MEDICAL HISTORY : Congestive heart failure. Hypercholesterolemia. Gastroesophageal reflux disease. Cerebrovascular a ccident. Coronary artery disease. Hypertension. Pancreatitis. Renal failure. Diabetes. Dialysis . SURGICAL HISTORY : Left forearm fistula. ENCOUNTER: Initial ACUITY: 1 week PAIN SCORE: 8/10 LOCATION: Left leg. TECHNIQUE: Venous ultrasound of the leg was performed from the inguinal ligament to the proximal calf. Real-thalia e, color Doppler and spectral tracing, compression and augmentation techniques were used. FINDINGS: There is normal compressibility of the deep venous system from the inguinal region to the proximal ca lf. No echogenic clot is seen in the lumen of the common femoral, femoral, popliteal, and posterior tibial veins. There is a normal response of the venous system to proximal and distal augmentation an d respiration. CONCLUSION: 1. No DVT. 2. Subcutaneous edema involving the calf. Navneet Gray Jr., MD on September 16, 2016 at 17:47 Board Certified Radiologist. This report was verified electronically.
[2016-09-16] MEDS ORDERED: cloNIDine HCL 0.1 MG TAB PO ONE (18:15)
[2016-09-16 18:21] VITALS: BP 190/100
== END 2016-09-16 18:29 | disposition home or self-care (01) ==
LOC: NEPD 13:19
DX: R60.0 Localized edema (principal); I10 Essential (primary) hypertension; D64.9 Anemia, unspecified; E78.00 Pure hypercholesterolemia, unspecified; I50.9 Heart failure, unspecified; I25.10 Atherosclerotic heart disease of native coronary artery without angina pectoris; E11.9 Type 2 diabetes mellitus without complications; K21.9 Gastro-esophageal reflux disease without esophagitis; K85.90 Acute pancreatitis without necrosis or infection, unspecified
CPT/HCPCS: 93971; 99285

== ENCOUNTER 2016-12-22 08:49 | Inpatient (IN) | payer MEDICARE, OTHER ==
[~2016-12-22] VITALS: Ht 165.1 cm; Wt 102.7 kg
[2016-12-22] VITALS (14 sets, daily range): BP systolic 103–273; BP diastolic 60–133; PULSE 74–103; RESP 15–18; TEMP 97.6–98.5; O2SAT 91–100
--- NOTE | 2016-12-22 09:07 | PD ---
HPI Chief Complaint: Headache Time Seen by Provider: 09:04 Travel History International Travel<30 days: No Contact w/Intl Traveler<30days: No Traveled to known affect area: No History of Present Illness HPI 56-year-old female was brought to the emergency room by EMS after she was found confused, on the floor with blanket on her sleeping by her . As per the patient is supposed to go for her dialysis today but he was having difficulty waking her route and she was being combative. She refused to go for her dialysis because it was too cold outside as per the . EMS said that the house was in a very poor hygienic condition. There were 2 dogs and their feces all over the place. The patient herself was covered in feces too. Her oxygen saturation was 94-95% on room air. Upon asking patient says she did not know who her paint roller covermaker was. She also did not know when her last dialysis was. Patient has a functioning shunt on her left upper extremity. She appeared to be in respiratory distress. Oxygen saturation in the ER was 91% on room air. She was being combative and not cooperative with the nursing staff to get her vital signs and EKG. She is not a reliable historian by any means at this point. [facility] Past Medical History Narrative Medical List of her past medical, surgical, social and family history is reviewed from the nursing note. Anemia: Yes Arthritis: No Cancer: No Cardiovascular Problems: Yes High Cholesterol: Yes Congestive Heart Failure: Yes Cerebrovascular Accident: Yes Coronary Artery Disease: Yes Diabetes: Yes Patient Takes Glucophage: No (UNKNOWN ) Dialysis: Yes Diminished Hearing: No GERD: Yes Hypertension: Yes Implanted Vascular Access Dvce: No Musculoskeletal: No Psychiatric: No Reproductive: No Respiratory: No Pancreatitis: Yes Renal Failure: Yes (on dialysis m/w/f) ?: Not : 1 Miscarriage: 1 Past Surgical History Abdominal Surgery: No Cardiac Surgery: No Ear Surgery: No Endocrine Surgery: No Eye Surgery: No Genitourinary Surgery: No Gynecologic Surgery: No Oral Surgery: No Thoracic Surgery: No Other Surgery: Yes (LT FOREARM FISTULA) Social History Alcohol Use: No Tobacco Use: No Substance Use: No Allergies-Medications (Allergen,Severity, Reaction): Coded Allergies: No Known Allergies (Unverified Allergy, Unknown, 12/22/16) Comments No known drug allergies. Reported Meds & Prescriptions Reported Meds & Active Scripts Active Protonix (Pantoprazole Sodium) 40 Mg Tab 40 Mg PO BID Coreg (Carvedilol) 12.5 Mg Tab 25 Mg PO Q12HR Clonidine (Clonidine HCl) 0.2 Mg Tab 0.2 Mg PO BID Nifedipine ER 24 HR (Nifedipine) 60 Mg Tab 60 Mg PO BID Reported Aspirin Adult Low Strength (Aspirin) 81 Mg Tabdr 81 Mg PO DAILY Vitamin B-12 (Cyanocobalamin) 1,000 Mcg Tab 1,000 Mcg PO DAILY Glyburide 5 Mg Tab 5 Mg PO DAILY Take with meals at the same time each day Renvela (Sevelamer Carbonate) 800 Mg Tab 800 Mg PO TID Take with meals Narrative Medication List of her home medications reviewed from the nursing note. Review of Systems Except as stated in HPI: all other systems reviewed are Neg Respiratory: Positive: Shortness of Breath Neurologic: Positive: Change in Mentation Physical Exam Narrative GENERAL: Awake, confused, respiratory distress, uncooperative SKIN: Focused skin assessment warm/dry. Extremely poor self hygiene HEAD: Atraumatic. Normocephalic. EYES: Pupils equal and round. No scleral icterus. No injection or drainage. ENT: No nasal bleeding or discharge. Mucous membranes pink and moist. NECK: Trachea midline. No JVD. CARDIOVASCULAR: Regular rate and rhythm. No murmur appreciated. RESPIRATORY: Tachypnea with some accessory muscle use, diminished air entry bilaterally GASTROINTESTINAL: Abdomen soft, non-tender, nondistended. Hepatic and splenic margins not palpable. MUSCULOSKELETAL: No obvious deformities. No clubbing. No cyanosis. No edema. NEUROLOGICAL: Awake and GCS of 14. No obvious cranial nerve deficits. Motor grossly within normal limits. Slurred speech. PSYCHIATRIC: Appropriate mood and affect; insight and judgment normal. Data Data Last Documented VS Vital Signs Date Time Temp Pulse Resp B/P (MAP) Pulse Ox O2 Delivery O2 Flow Rate FiO2 12/22/16 10:20 97 Nasal Cannula 3.00 12/22/16 09:30 86 18 12/22/16 08:54 97.7 Orders Orders Complete Blood Count With Diff (12/22/16 09:04) Comprehensive Metabolic Panel (12/22/16 09:04) Prothrombin Time / Inr (Pt) (12/22/16 09:04) Magnesium (Mg) (12/22/16 09:04) Troponin I (12/22/16 09:04) Arterial Blood Gas (Abg) (12/22/16 09:04) Urinalysis - C+S If Indicated (12/22/16 09:04) Blood Culture (12/22/16 09:04) Iv Access Insert/Monitor (12/22/16 09:04) Electrocardiogram (12/22/16 09:04) Ecg Monitoring (12/22/16 09:04) Oximetry (12/22/16 09:04) Oxygen Administration (12/22/16 09:04) Chest, Single Ap (12/22/16 09:04) Sodium Chloride 0.9% Flush (Ns Flush) (12/22/16 09:15) Albuterol-Ipratropium Neb (Duoneb Neb) (12/22/16 09:15) Lactic Acid (12/22/16 09:04) Vascular Access Team Consult/P PRN (12/22/16 09:58) Vascular Poc Ultrasound (12/22/16 ) Ct Brain W/O Iv Contrast(Rout) (12/22/16 ) Lorazepam Inj (Ativan Inj) (12/22/16 10:45) Admit Order (Ed Use Only) (12/22/16 10:32) Labs Laboratory Tests Test 12/22/16 09:50 12/22/16 10:20 Blood Gas Puncture Site RT RADIAL Blood Gas Patient Temperature 98.6 Blood Gas HCO3 20 mmol/L Blood Gas Base Excess -3.7 mmol/L Blood Gas Oxygen Saturation 92 % Arterial Blood pH 7.39 Arterial Blood Partial Pressure CO2 34 mmHg Arterial Blood Partial Pressure O2 74 mmHG Arterial Blood Oxygen Content 12.5 Vol % Arterial Blood Carboxyhemoglobin 1.7 % Arterial Blood Methemoglobin 0.7 % Blood Gas Hemoglobin 9.6 G/DL Oxygen Delivery Device NASAL CANNULA Blood Gas Liter Flow 2 L/M White Blood Count 13.4 TH/MM3 Red Blood Count 3.16 MIL/MM3 Hemoglobin 9.8 GM/DL Hematocrit 30.1 % Mean Corpuscular Volume 95.2 FL Mean Corpuscular Hemoglobin 31.0 PG Mean Corpuscular Hemoglobin Concent 32.5 % Red Cell Distribution Width 15.2 % Platelet Count 285 TH/MM3 Mean Platelet Volume 8.0 FL Neutrophils (%) (Auto) 89.8 % Lymphocytes (%) (Auto) 5.4 % Monocytes (%) (Auto) 3.1 % Eosinophils (%) (Auto) 0.9 % Basophils (%) (Auto) 0.8 % Neutrophils # (Auto) 12.1 TH/MM3 Lymphocytes # (Auto) 0.7 TH/MM3 Monocytes # (Auto) 0.4 TH/MM3 Eosinophils # (Auto) 0.1 TH/MM3 Basophils # (Auto) 0.1 TH/MM3 CBC Comment DIFF FINAL Differential Comment Prothrombin Time 10.7 SEC Prothromb Time International Ratio 1.0 RATIO Blood Urea Nitrogen 86 MG/DL Creatinine 10.77 MG/DL Random Glucose 181 MG/DL Total Protein 8.3 GM/DL Albumin 3.6 GM/DL Calcium Level 10.1 MG/DL Magnesium Level 3.1 MG/DL Alkaline Phosphatase 69 U/L Aspartate Amino Transf (AST/SGOT) 23 U/L Alanine Aminotransferase (ALT/SGPT) 21 U/L Total Bilirubin 0.6 MG/DL Sodium Level 128 MEQ/L Potassium Level 7.9 MEQ/L Chloride Level 94 MEQ/L Carbon Dioxide Level 22.1 MEQ/L Anion Gap 12 MEQ/L Estimat Glomerular Filtration Rate 4 ML/MIN Lactic Acid Level 0.9 mmol/L Troponin I 1.01 NG/ML [facility] Medical Decision Making Medical Screen Exam Complete: Yes Emergency Medical Condition: Yes Medical Record Reviewed: Yes Interpretation(s) Twelve-lead EKG was reviewed by me. Normal sinus rhythm, left axis deviation, interventricular conduction delay, peaked T waves, first-degree AV block. Heart rate of 86 bpm. Differential Diagnosis Hyperkalemia, congestive heart failure, pneumonia, electrolyte abnormalities Narrative Course 10:50 AM blood gas shows hypoxia but otherwise within acceptable limit. Chest x -ray suggestive of congestive heart failure. Based on that and peaked T waves I decided to call the paint roller covermaker education assistant who knew the patient well since its this patient. As per him patient had her last dialysis last Thursday. This to the urgency for the dialysis and said he would set up the team soon. He wanted the patient to be admitted medically. I discussed the case with the hospitalist was accepted the patient. She was being very uncooperative and difficult to get an access. I had to call for vascular access team. Awaiting for the blood test results at this point. CBC has started to come back and shows some leukocytosis. Awaiting for the dialysis at this point. Patient initially was also complaining of headache. I've ordered a CAT scan of her head. 12:30 PM. I was told by the nurse that patient started getting very combative in the CT scanner and was trying to pull her IV out. I ordered 2 mg of versed which allowed to get the CAT scan of the head completed but by the time patient came back to the room she was somnolent. She had breathing of obstructive sleep apnea kind of pattern. Patient was hypoxic to start with upon arrival. At this point I decided to intubate her. Please refer to my procedure note. Patient tolerated the procedure well. Given poor peripheral IV access I decided to put a central line. Please refer to my procedure note for that. I spoke with the human resource consultant Dr. Grimaldo who has accepted the patient. Awaiting for a chest x-ray for line placement. Patient has hyperkalemia and I have ordered 2 g of IV calcium, 150 mEq of bicarb, 10 units of insulin and D50 and albuterol nebulizer. Patient will require dialysis as soon as possible. The paint roller covermaker is aware of this. Critical Care Narrative Aggregate critical care time was 90 minutes. Time to perform other separately billable procedures was not included in the critical care time. My time did not include minutes spent treating any other patients simultaneously or on activities that did not directly contribute to the patient's treatment. The services I provided to this patient were to treat and/or prevent clinically significant deterioration that could result in: Respiratory distress, hypoxia, respiratory failure, hyperkalemia, ventilator management I provided critical care services requiring my management, as noted below: Chart data review, documentation time, medication orders and management, vital sign assessments/reviewing monitor data, ordering and reviewing lab tests, ordering and interpreting/reviewing x-rays and diagnostic studies, care of the patient and discussion of the patient with the admitting physicians. Procedures Procedure Narrative After the risks and benefits were discussed the following procedure was performed: INTUBATION: The patient was put in optimal position for the procedure. Rapid sequence intubation was initiated by me using 20 milligrams of etomidate IV and 100 milligrams of rocuronium IV. The patient was intubated with a 7.5 cuffed endotracheal tube. Tube placement was confirmed by visualization of the tube and balloon passing through the cords, capnometry and subsequent chest x-ray. Breath sounds were equal and well aerated bilaterally postintubation. No breath sounds over stomach. Patient tolerated procedure well. CENTRAL VENOUS LINE: The site was prepped with Betadine and sterilely draped. It was infiltrated with 1% lidocaine plain. The deep vein was cannulated using normal Seldinger technique. A triple lumen central line was placed in the left subclavian site and secured with simple interrupted suture. The site was sterilely dressed. The patient tolerated the procedure well. EKG Prior to Arrival: No Physician Communication Physician Communication Dr. Davies, Dr. Grimaldo Diagnosis Primary Impression: Respiratory distress Additional Impressions: Congestive heart disease Qualified Codes: I50.9 - Heart failure, unspecified End stage renal disease Hemodialysis patient Hyperkalemia Respiratory failure Qualified Codes: J96.00 - Acute respiratory failure, unspecified whether with hypoxia or hypercapnia Elevated troponin Admitting Information Admitting Physician Requests: Admit Carlota Rodriguez MD Dec 22, 2016 09:07
[2016-12-22] MEDS ORDERED: SODIUM CHLORIDE 0.9% FLUSH 10 ML FLUSH IVF PRN ×2 (09:15)
[2016-12-22] MEDS: RESP: ALBUTEROL 2.5 MG/IPRATROPIUM 0.5 MG NEB (SCH) INH ×4 (09:15→09:30)
--- NOTE | 2016-12-22 10:02 | RADRPT ---
EXAM DATE/TIME: 12/22/2016 09:53 [facility] COMPARISON: CHEST SINGLE AP, July 08, 2016, 13:51. INDICATIONS : Shortness of breath, altered mental status. MEDICAL HISTORY : Hypertension. Renal failure, chronic. Diabetes mellitus type II. SURGICAL HISTORY : None. ENCOUNTER: Initial ACUITY: 1 day PAIN SCORE: 0/10 LOCATION: Bilateral chest FINDINGS: The heart is enlarged. There is moderate interstitial edema with bibasilar parenchymal changes prese nt stable in the interval. CONCLUSION: Moderate congestive failure similar to what was seen on 07/08/16. Art Palacios MD FACR on December 22, 2016 at 10:00 Board Certified Radiologist. This report was verified electronically.
[2016-12-22] MEDS ORDERED: ACETAMINOPHEN 325 MG TAB PO PRN ×4 (10:45→14:00)
[2016-12-22] MEDS ORDERED: SENNOSIDES 8.6 MG TAB PO PRN ×2 (10:45)
[2016-12-22] MEDS ORDERED: SODIUM CHLORIDE 0.9% FLUSH 10 ML FLUSH IV FLUSH PRN ×6 (10:45→12:45)
[2016-12-22] MEDS ORDERED: LORazepam 2 MG/ML VIAL IV PUSH ONE ×2 (10:45)
[2016-12-22] MEDS ORDERED: MAGNESIUM HYDROXIDE SUSP 30 ML CUP PO PRN ×2 (10:45)
[2016-12-22] MEDS ORDERED: BISACODYL 10 MG SUPP RECTAL PRN ×2 (10:45)
[2016-12-22] MEDS ORDERED: LACTULOSE SYRUP 20 GM/30 ML CUP PO PRN ×2 (10:45)
[2016-12-22] MEDS ORDERED: NALOXONE HCL 0.4 MG/ML AMP IV PUSH PRN ×2 (10:45)
[2016-12-22 10:46] LABS: AUTOMATED NEUTROPHIL # 12.1 TH/MM3 (1.8-7.7); BASOPHIL # 0.1 TH/MM3 (0-0.2); BASOPHIL % 0.8 % (0.0-2.0); EOSINOPHIL # 0.1 TH/MM3 (0-0.4); EOSINOPHIL % 0.9 % (0.0-4.0); HEMATOCRIT 30.1 % (35.0-46.0); HEMOGLOBIN 9.8 GM/DL (11.6-15.3); LYMPH % 5.4 % (9.0-44.0); LYMPHOCYTE # 0.7 TH/MM3 (1.0-4.8); MEAN CELL VOLUME 95.2 FL (80.0-100.0); MEAN CORPUSCULAR HGB CONC 32.5 % (32.0-36.0); MONO % 3.1 % (0.0-8.0); MONOCYTE # 0.4 TH/MM3 (0-0.9); NEUT % 89.8 % (16.0-70.0); PLATELET COUNT 285 TH/MM3 (150-450); RED BLOOD COUNT 3.16 MIL/MM3 (4.00-5.30); RED CELL DISTRIBUTION WIDTH 15.2 % (11.6-17.2); WHITE BLOOD COUNT 13.4 TH/MM3 (4.0-11.0)
[2016-12-22 10:52] LABS: PROTHROMBIN TIME - PATIENT 10.7 SEC (9.8-11.6)
[2016-12-22] MEDS ORDERED: HEPARIN SODIUM - IV 10,000 UNITS/10 ML VIAL IV FLUSH PRN ×2 (11:15)
[2016-12-22] MEDS ORDERED: NITROGLYCERIN 0.4 MG SL 25 TABS/BTL SL PRN ×2 (11:15)
[2016-12-22] MEDS ORDERED: GENTAMICIN SULFATE (DIALYSIS USE ONLY) 20 MG/2 ML VIAL OTHER PRN ×2 (11:15)
[2016-12-22] MEDS ORDERED: cloNIDine HCL 0.1 MG TAB PO PRN ×2 (11:15)
[2016-12-22] MEDS ORDERED: SODIUM CHLOR 0.9% 1000 ML INJ 1,000 ML IV PRN ×2 (11:15)
[2016-12-22] MEDS ORDERED: MANNITOL 12.5 GM/50 ML VIAL IV PRN ×2 (11:15)
[2016-12-22] MEDS ORDERED: ONDANSETRON HCL 4 MG/2 ML VIAL IV PUSH PRN ×2 (11:15)
[2016-12-22] MEDS ORDERED: HEPARIN SODIUM - IV 10,000 UNITS/10 ML VIAL PRN ×2 (11:15)
[2016-12-22] MEDS ORDERED: ALBUMIN 25% INJ 100 ML IV PRN ×2 (11:15)
[2016-12-22] MEDS ORDERED: SODIUM CHLOR 0.9% 1000 ML INJ 1,000 ML OTHER PRN ×4 (11:15)
[2016-12-22 11:18] LABS: ALBUMIN 3.6 GM/DL (3.4-5.0); ALKALINE PHOSPHATASE 69 U/L (45-117); ALT (GPT) 21 U/L (10-53); AST (GOT) 23 U/L (15-37); BICARBONATE 22.1 MEQ/L (21.0-32.0); BLOOD UREA NITROGEN 86 MG/DL (7-18); CALCIUM 10.1 MG/DL (8.5-10.1); CHLORIDE 94 MEQ/L (98-107); GLOMERULAR FILTRATION RATE 4 ML/MIN (>89); GLUCOSE,RANDOM 181 MG/DL (74-106); MAGNESIUM 3.1 MG/DL (1.5-2.5); SODIUM (NA) 128 MEQ/L (136-145); TOTAL BILIRUBIN ADULT 0.6 MG/DL (0.2-1.0); TOTAL PROTEIN 8.3 GM/DL (6.4-8.2)
[2016-12-22] MEDS ORDERED: MIDAZOLAM HCL 5 MG/ML VIAL (1 ML) ONE ×2 (11:19)
[2016-12-22] MEDS ORDERED: MIDAZOLAM HCL 2 MG/2 ML VIAL IV PUSH ONE ×2 (11:30)
[2016-12-22 11:33] LABS: CREATININE 10.77 MG/DL (0.50-1.00); TROPONIN I 1.01 NG/ML (0.02-0.05)
--- NOTE | 2016-12-22 11:33 | RADRPT ---
EXAM DATE/TIME: 12/22/2016 11:03 [facility] COMPARISON: CT BRAIN W/O CONTRAST, July 08, 2016, 15:30. INDICATIONS : Cephalgia; altered mental status. RADIATION DOSE: 56.35 CTDIvol (mGy) ; Patient motion; Patient body habitus MEDICAL HISTORY : Stroke. Hypertension. SURGICAL HISTORY : None. ENCOUNTER: Initial ACUITY: 1 day PAIN SCALE: 4/10 LOCATION: cranial TECHNIQUE: Multiple contiguous axial images were obtained of the head. Using automated exposure control and adj ustment of the mA and/or kV according to patient size, radiation dose was kept as low as reasonably a chievable to obtain optimal diagnostic quality images. DICOM format image data is available electro nically for review and comparison. FINDINGS: There is an old infarct left parietal occipital region stable in the interval. Lacunar infarct basal ganglia right side Moderate central and cortical atrophy Ventricular size is appropriate Posterior fossa is unremarkable Orbits and paranasal sinuses are unremarkable. CONCLUSION: Old ischemic changes left parietal occipital region, right basalganglia Negative for acute process. Art Palacios MD FACR on December 22, 2016 at 11:29 Board Certified Radiologist. This report was verified electronically.
[2016-12-22] MEDS ORDERED: ROCURONIUM INJ 50 MG/5 ML VIAL ONE ×2 (11:41)
[2016-12-22] MEDS ORDERED: INSULIN HUMAN REGULAR 1,000 UNITS/10 ML VIAL IV PUSH ONE ×2 (11:45)
[2016-12-22] MEDS ORDERED: SODIUM BICARBONATE 8.4% SOLN 50 MEQ/50 ML VIAL SLOW IVP ONE ×2 (11:45)
[2016-12-22] MEDS ORDERED: CALCIUM GLUCONATE 10% 1 GM/10 ML VIAL SLOW IVP ONE ×2 (11:45)
[2016-12-22] MEDS ORDERED: DEXTROSE 50% IN WATER 50 ML VIAL(D50) IV PUSH ONE (11:45)
[2016-12-22] MEDS ORDERED: ETOMIDATE 20 MG/10 ML VIAL IV PUSH ONE ×2 (11:45)
[2016-12-22] MEDS ORDERED: ROCURONIUM INJ 100 MG/10 ML VIAL IV ONE ×2 (11:45)
[2016-12-22] MEDS ORDERED: SODIUM POLYSTYRENE SULFONATE SUSP 15 GM/60 ML CUP PO ONE ×2 (11:45)
[2016-12-22] MEDS ORDERED: RESP: ALBUTEROL CONC 2.5 MG/0.5 ML NEB INH ONE ×2 (11:45)
[2016-12-22] MEDS ORDERED: PROPOFOL 1000 MG/100 ML INJ 100 ML ONE ×2 (11:48)
[2016-12-22] MEDS ORDERED: RESP: ALBUTEROL 2.5 MG/3 ML NEB (SCH) NEB ONE ×2 (12:15)
[2016-12-22] MEDS ORDERED: MISCELLANEOUS NURSING INFORMATION XX SCH ×2 (12:45)
[2016-12-22] MEDS ORDERED: CHLORHEXIDINE GLUCONATE 2 % 1 PACK (2 CLOTHS) TOP PRN ×2 (12:45)
[2016-12-22] MEDS ORDERED: hydrALAZINE HCL 20 MG/ML VIAL IV PUSH PRN ×2 (13:00)
[2016-12-22] MEDS ORDERED: RESP: ALBUTEROL 2.5 MG/IPRATROPIUM 0.5 MG NEB (PRN) INH ×2 (13:00)
[2016-12-22] MEDS ORDERED: niCARdipine INJ 25 MG in SODIUM CHLOR 0.9% 250 ML INJ 240 ML IV PRN ×4 (13:00)
[2016-12-22] MEDS: PROPOFOL 1000 MG/100 ML INJ 100 ML IV PRN ×6 (13:00→21:20)
--- NOTE | 2016-12-22 13:06 | RADRPT ---
EXAM DATE/TIME: 12/22/2016 12:53 [facility] COMPARISON: CHEST SINGLE AP, December 22, 2016, 9:53. INDICATIONS : Post intubation. MEDICAL HISTORY : None. SURGICAL HISTORY : None. ENCOUNTER: Initial ACUITY: 1 day PAIN SCORE: Non-responsive. LOCATION: Bilateral chest FINDINGS: Support apparatus in good position. Cardiomegaly with moderate interstitial edema. There is no pleu ral effusion. CONCLUSION: Support apparatus in good position, moderate failure. Art Palacios MD FACR on December 22, 2016 at 13:04 Board Certified Radiologist. This report was verified electronically.
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
--- NOTE | 2016-12-22 13:23 | PD.CONS ---
HPI Service Nephrology Consult Requested By Dr. Davies Reason for Consult End-stage renal disease Primary Care Physician No Primary Care Physician History of Present Illness Patient is a 56-year-old the female with history of diabetes, hypertension, end- stage renal disease, medical noncompliance with hemodialysis who is a patient of Dr. DAVIES, he was consulted to assist she missed her dialysis and supposed to be there today but has hard time arousing her and she was confused she refused to go for dialysis as it was too cold and EMS was called who brought her to the hospital, she was noted to have AV block and peak T waves potassium is 7.9 patient is intubated on ventilator. Review of Systems ROS Limitations: Clinical Condition Past Family Social History Allergies: Coded Allergies: No Known Allergies (Unverified Allergy, Unknown, 12/22/16) Past Medical History ESRD Diabetes Hypertension Noncompliance She has been terminated by Dr. Erik Rubio for noncompliance Now follows with Dr. DAVIES remains non-compliant with her dialysis Past Surgical History AV fistula placed Reported Medications Reported Meds & Active Scripts Active Protonix (Pantoprazole Sodium) 40 Mg Tab 40 Mg PO BID Coreg (Carvedilol) 12.5 Mg Tab 25 Mg PO Q12HR Clonidine (Clonidine HCl) 0.2 Mg Tab 0.2 Mg PO BID Nifedipine ER 24 HR (Nifedipine) 60 Mg Tab 60 Mg PO BID Reported Aspirin Adult Low Strength (Aspirin) 81 Mg Tabdr 81 Mg PO DAILY Vitamin B-12 (Cyanocobalamin) 1,000 Mcg Tab 1,000 Mcg PO DAILY Glyburide 5 Mg Tab 5 Mg PO DAILY Take with meals at the same time each day Renvela (Sevelamer Carbonate) 800 Mg Tab 800 Mg PO TID Take with meals Active Ordered Medications Current Medications Medications (Trade) Dose Ordered Sig/Shaun Route Start Time Stop Time Status Last Admin (NS Flush) 2 ml UNSCH PRN IV FLUSH 12/22/16 10:45 (NS Flush) 2 ml BID IV FLUSH 12/22/16 21:00 (Tylenol) 650 mg Q4H PRN PO 12/22/16 10:45 (Narcan Inj) 0.4 mg UNSCH PRN IV PUSH 12/22/16 10:45 (Milk Of Magnesia Liq) 30 ml Q12H PRN PO 12/22/16 10:45 (Senokot) 17.2 mg Q12H PRN PO 12/22/16 10:45 (Dulcolax Supp) 10 mg DAILY PRN RECTAL 12/22/16 10:45 (Lactulose Liq) 30 ml DAILY PRN PO 12/22/16 10:45 Sodium Chloride 1,000 ml @ 0 mls/hr Q0M PRN OTHER 12/22/16 11:15 (Heparin Inj) 8,000 units UNSCH PRN IV FLUSH 12/22/16 11:15 Sodium Chloride 1,000 ml @ 200 mls/hr Q5H PRN IV 12/22/16 11:15 Sodium Chloride 1,000 ml @ 0 mls/hr Q0M PRN OTHER 12/22/16 11:15 (Mannitol Inj) 12.5 gm UNSCH PRN IV 12/22/16 11:15 Albumin Human 100 ml @ 60 mls/hr UNSCH PRN IV 12/22/16 11:15 (NS Flush) 5 ml UNSCH PRN IV FLUSH 12/22/16 11:15 (Heparin Inj) UNSCH PRN .XX 12/22/16 11:15 (Gentamicin (Dialysis) Inj) 20 mg UNSCH PRN OTHER 12/22/16 11:15 (Zofran Inj) 4 mg UNSCH PRN IV PUSH 12/22/16 11:15 (Tylenol) 650 mg UNSCH PRN PO 12/22/16 11:15 (Benadryl) 25 mg UNSCH PRN PO 12/22/16 11:15 (Nitrostat Sl) 0.4 mg UNSCH PRN SL 12/22/16 11:15 (Catapres) 0.1 mg UNSCH PRN PO 12/22/16 11:15 (Epogen Inj) 10,000 units UNSCH PRN IV PUSH 12/22/16 11:15 (Gelfoam 12 Mm/7 Mm Top) 1 foam UNSCH PRN TOP 12/22/16 11:15 Propofol 100 ml @ 3.9 mls/hr TITRATE PRN IV 12/22/16 13:00 12/22/16 13:00 (NS Flush) 2 ml UNSCH PRN IV FLUSH 12/22/16 12:45 UNV (NS Flush) 2 ml BID IV FLUSH 12/22/16 21:00 UNV (Tylenol) 650 mg Q6H PRN PO 12/22/16 12:45 UNV (Duoneb Neb) 1 ampule Q6HR NEB NEB 12/22/16 16:00 UNV (Duoneb Neb) 1 ampule Q4HR NEB PRN INH 12/22/16 12:45 UNV (Peridex 0.12% Liq) 15 ml BID@08,20 MT 12/22/16 20:00 UNV (Prevacid Odt) 30 mg DAILY TUBE 12/23/16 09:00 UNV (Heparin Inj) 5,000 units Q12H SQ 12/22/16 21:00 UNV Miscellaneous Information 1 Q361D XX 12/22/16 12:45 UNV (Chlorhexidine 2% Cloth) 3 pack Taper DAILY@04 TOP 12/23/16 04:00 12/19/17 03:59 UNV (Chlorhexidine 2% Cloth) 3 pack UNSCH PRN TOP 12/22/16 12:45 UNV Nicardipine HCl 25 mg/Sodium Chloride 250 ml @ 50 mls/hr TITRATE PRN IV 12/22/16 13:00 UNV (Apresoline Inj) 20 mg Q4H PRN IV PUSH 12/22/16 13:00 UNV Family History Noncontributory Social History Not available Physical Exam Vital Signs Vital Signs Date Time Temp Pulse Resp B/P (MAP) Pulse Ox O2 Delivery O2 Flow Rate FiO2 12/22/16 12:29 97.7 103 18 254/110 (158) 98 12/22/16 12:01 100 12/22/16 11:55 100 100 12/22/16 11:01 88 18 209/111 (143) 97 Nasal Cannula 3.00 12/22/16 10:20 97 Nasal Cannula 3.00 12/22/16 09:52 93 Nasal Cannula 3.00 12/22/16 09:30 86 18 98 Nasal Cannula 3.00 12/22/16 08:54 97.7 84 91 Physical Exam GENERAL: Well-nourished, well-developed sick appearing patient on ventilator SKIN: Warm and dry. HEAD: Normocephalic. EYES: No scleral icterus. No injection or drainage. NECK: Supple, trachea midline. No JVD or lymphadenopathy. CARDIOVASCULAR: Regular rate and rhythm without murmurs, gallops, or rubs. RESPIRATORY: Breath sounds equal bilaterally. No accessory muscle use. GASTROINTESTINAL: Abdomen soft, non-tender, nondistended. EXTREMITIES: No cyanosis, or edema. AV fistula NEUROLOGICAL: Intubated Laboratory Laboratory Tests Test 12/22/16 09:50 12/22/16 10:20 12/22/16 12:50 Blood Gas Puncture Site RT RADIAL RT RADIAL Blood Gas Patient Temperature 98.6 98.6 Blood Gas HCO3 20 25 Blood Gas Base Excess -3.7 0.0 Blood Gas Oxygen Saturation 92 98 Arterial Blood pH 7.39 7.35 Arterial Blood Partial Pressure CO2 34 46 Arterial Blood Partial Pressure O2 74 422 Arterial Blood Oxygen Content 12.5 14.2 Arterial Blood Carboxyhemoglobin 1.7 1.3 Arterial Blood Methemoglobin 0.7 0.8 Blood Gas Hemoglobin 9.6 9.5 Oxygen Delivery Device NASAL CANNULA VENTILATOR Blood Gas Liter Flow 2 White Blood Count 13.4 Red Blood Count 3.16 Hemoglobin 9.8 Hematocrit 30.1 Mean Corpuscular Volume 95.2 Mean Corpuscular Hemoglobin 31.0 Mean Corpuscular Hemoglobin Concent 32.5 Red Cell Distribution Width 15.2 Platelet Count 285 Mean Platelet Volume 8.0 Neutrophils (%) (Auto) 89.8 Lymphocytes (%) (Auto) 5.4 Monocytes (%) (Auto) 3.1 Eosinophils (%) (Auto) 0.9 Basophils (%) (Auto) 0.8 Neutrophils # (Auto) 12.1 Lymphocytes # (Auto) 0.7 Monocytes # (Auto) 0.4 Eosinophils # (Auto) 0.1 Basophils # (Auto) 0.1 CBC Comment DIFF FINAL Differential Comment Prothrombin Time 10.7 Prothromb Time International Ratio 1.0 Blood Urea Nitrogen 86 Creatinine 10.77 Random Glucose 181 Total Protein 8.3 Albumin 3.6 Calcium Level 10.1 Magnesium Level 3.1 Alkaline Phosphatase 69 Aspartate Amino Transf (AST/SGOT) 23 Alanine Aminotransferase (ALT/SGPT) 21 Total Bilirubin 0.6 Sodium Level 128 Potassium Level 7.9 Chloride Level 94 Carbon Dioxide Level 22.1 Anion Gap 12 Estimat Glomerular Filtration Rate 4 Lactic Acid Level 0.9 Troponin I 1.01 Blood Gas Ventilator Setting PRVC/AC Blood Gas Inspired Oxygen 100 Date/Time Source Procedure Growth Status 12/22/16 10:20 Blood Peripheral Aerobic Blood Culture Pending Received 10/30/17 10:20 Blood Peripheral Anaerobic Blood Culture Pending Received Result Diagram: 12/22/16 1020 12/22/16 1020 Imaging Last Impressions Chest X-Ray 12/22/16 0904 Signed Impressions: Service Date/Time: Thursday, December 22, 2016 09:53 - CONCLUSION: Moderate congestive failure similar to what was seen on 07/08/16. Art Palacios MD FACR Head CT 12/22/16 0000 Signed Impressions: Service Date/Time: Thursday, December 22, 2016 11:03 - CONCLUSION: Old ischemic changes left parietal occipital region, right basalganglia Negative for acute process. Art Palacios MD FACR Assessment and Plan Problem List: (1) End stage renal disease on dialysis ICD Codes: N18.6 - End stage renal disease; Z99.2 - Dependence on renal dialysis Status: Acute Plan: On hemodialysis. To start dialysis emergently as potassium is high She is noncompliant with hemodialysis Despite several warnings and history She chose to remain noncompliant This will lead to higher morbidity and mortality Continue to monitor (2) Diabetes mellitus ICD Codes: E11.9 - Type 2 diabetes mellitus without complications Status: Chronic Plan: Continue to monitor blood sugars (3) Hypertension ICD Codes: I10 - Essential (primary) hypertension Status: Chronic Plan: Monitor in the hospital (4) Non-compliance ICD Codes: Z91.19 - Patient's noncompliance with other medical treatment and regimen Status: Chronic (5) Congestive heart disease ICD Codes: I50.9 - Heart failure, unspecified Status: Acute Plan: Noncompliance lead to fluid accumulation and congestive heart failure. Hemodialysis is in progress Problem Qualifiers (1) Diabetes mellitus: (2) Congestive heart disease: Qualified Codes: I50.9 - Heart failure, unspecified Sylvain Freedman MD Dec 22, 2016 13:23
--- NOTE | 2016-12-22 13:27 | EKG ---
Date Performed: 12/22/2016 Time Performed: 09:33:45 PTAGE: 56 years EKG: Sinus rhythm WITH FIRST DEGREE AV BLOCK INTRAVENTRICULAR CONDUCTION DELAY INFERIOR MYOCARDIAL INFARCTION ANTEROSE PTAL MYOCARDIAL INFARCTION ABNORMAL ECG PREVIOUS TRACING : 08/29/2016 14.25 Compared to prior tracing no significant change DOCTOR: Walter Donnelly Interpretating Date/Time 12/22/2016 13:25:13
[2016-12-22] MEDS: GELATIN 12 MM/7 MM FOAM TOP PRN ×2 (13:45)
[2016-12-22] MEDS: EPOETIN ALFA 10,000 UNITS/ML VIAL IV PUSH PRN ×2 (13:45)
[2016-12-22] MEDS: cloNIDine HCL 0.2 MG TAB PO SCH ×4 (14:15→20:24)
--- NOTE | 2016-12-22 14:54 | HHI.PR ---
Addendum to Inpatient Note Additional Information ED provider initially contacted us (hospitalist service) for admission. I placed initial orders. I did not get any further update on patient regarding declining respiratory status. Later, chart review indicated patient was intubated. I briefly stopped by patient's room in the ICU. Currently, patient is intubated, sedated. Dr. Grimaldo (Critical care) was contacted by ED provider. Patient will remain under critical care service at this point. Bianca Rosenberg DO Dec 22, 2016 14:54
--- NOTE | 2016-12-22 14:56 | HHI.HP ---
HPI Service Critical Care Medicine Primary Care Physician No Primary Care Physician Admission Diagnosis ESRD, HCT dependent, congestive heart failure, respiratory distress Diagnosis: Chief Complaint: Altered mental status Travel History International Travel<30 Days: No Contact w/Intl Traveler <30 Da: No Traveled to Known Affected Are: No History of Present Illness History of Present Illness HPI 56-year-old female with a medical history significant for end-stage renal disease on hemodialysis, diabetes mellitus, medical noncompliance who reportedly missed hemodialysis session. Patient is having difficulty waking up and was combative at home as well as confused. She was found on the floor with a blanket on and sleeping by her . EMS was called and per documentation the house wasn't very poor hygienic condition. Patient was covered with stool as well. She was noted to have an O2 sat of 94% on room air. She was confused and did not know who her expanded duty dental assistant was on inquiry per documentation and did not know when she was last dialyzed. She was brought to the ER and was noted to have minimal respiratory distress and was very combative. She was noted to have a potassium of 7.9. She underwent a head CT however received some Versed for the scan and subsequently became very lethargic and was intubated emergently and placed on mechanical ventilation by ER physician. She also had a central line placed in the left subclavian vein by Dr. Rodriguez in the ER as she had extremely poor vascular access and was subsequently placed on propofol for sedation. Patient was initially accepted by hospitalist service however subsequently critical care medicine was contacted and patient was accepted for admission by critical care medicine service. I evaluated the patient in the ER earlier and at that time she was sedated with propofol, orally intubated on mechanical ventilation. Nephrology was already contacted by ER physician and is arranging hemodialysis. History [facility] Past Medical History Narrative Medical List of her past medical, surgical, social and family history is reviewed from the nursing note. Anemia: Yes Arthritis: No Cancer: No Cardiovascular Problems: Yes High Cholesterol: Yes Congestive Heart Failure: Yes Cerebrovascular Accident: Yes Coronary Artery Disease: Yes Diabetes: Yes Patient Takes Glucophage: No (UNKNOWN ) Dialysis: Yes Diminished Hearing: No GERD: Yes Hypertension: Yes Implanted Vascular Access Dvce: No Musculoskeletal: No Psychiatric: No Reproductive: No Respiratory: No Pancreatitis: Yes Renal Failure: Yes (on dialysis m/w/f) ?: Not : 1 Miscarriage: 1 Past Surgical History Abdominal Surgery: No Cardiac Surgery: No Ear Surgery: No Endocrine Surgery: No Eye Surgery: No Genitourinary Surgery: No Gynecologic Surgery: No Oral Surgery: No Thoracic Surgery: No Other Surgery: Yes (LT FOREARM FISTULA) Social History Alcohol Use: No Tobacco Use: No Substance Use: No Allergies-Medications Allergies-Medications (Allergen,Severity, Reaction): Coded Allergies: No Known Allergies (Unverified Allergy, Unknown, 12/22/16) Comments No known drug allergies. Reported Meds & Prescriptions Reported Meds & Active Scripts Active Protonix (Pantoprazole Sodium) 40 Mg Tab 40 Mg PO BID Coreg (Carvedilol) 12.5 Mg Tab 25 Mg PO Q12HR Clonidine (Clonidine HCl) 0.2 Mg Tab 0.2 Mg PO BID Nifedipine ER 24 HR (Nifedipine) 60 Mg Tab 60 Mg PO BID Reported Aspirin Adult Low Strength (Aspirin) 81 Mg Tabdr 81 Mg PO DAILY Vitamin B-12 (Cyanocobalamin) 1,000 Mcg Tab 1,000 Mcg PO DAILY Glyburide 5 Mg Tab 5 Mg PO DAILY Take with meals at the same time each day Renvela (Sevelamer Carbonate) 800 Mg Tab 800 Mg PO TID Take with meals Narrative Medication List of her home medications reviewed from the nursing note. Review of Systems ROS Limitations: Clinical Condition, Intubated, Altered Mental Status Physical Exam Vital Signs Vital Signs Date Time Temp Pulse Resp B/P (MAP) Pulse Ox O2 Delivery O2 Flow Rate FiO2 12/22/16 13:35 97.6 97 15 273/133 (179) 97 12/22/16 13:31 12/22/16 12:29 97.7 103 18 254/110 (158) 98 12/22/16 12:01 100 12/22/16 11:55 100 100 12/22/16 11:01 88 18 209/111 (143) 97 Nasal Cannula 3.00 12/22/16 10:20 97 Nasal Cannula 3.00 12/22/16 09:52 93 Nasal Cannula 3.00 12/22/16 09:30 86 18 98 Nasal Cannula 3.00 12/22/16 08:54 97.7 84 91 Physical Exam Physical Exam Physical Exam Narrative HEENT/ Neuro: Sedated, orally intubated, Pallor present, no icterus, tongue/ mucosa moist Neck: No JVD Chest/Pulm: on mech vent, good air entry bilaterally, no wheezing or crackles CVS: S1-S2 regular, no murmur GI/abdomen: soft, nontender, bowel sounds sluggish Extremities: warm bilaterally, no edema Laboratory Laboratory Tests Test 12/22/16 09:50 12/22/16 10:20 12/22/16 12:50 Blood Gas Puncture Site RT RADIAL RT RADIAL Blood Gas Patient Temperature 98.6 98.6 Blood Gas HCO3 20 25 Blood Gas Base Excess -3.7 0.0 Blood Gas Oxygen Saturation 92 98 Arterial Blood pH 7.39 7.35 Arterial Blood Partial Pressure CO2 34 46 Arterial Blood Partial Pressure O2 74 422 Arterial Blood Oxygen Content 12.5 14.2 Arterial Blood Carboxyhemoglobin 1.7 1.3 Arterial Blood Methemoglobin 0.7 0.8 Blood Gas Hemoglobin 9.6 9.5 Oxygen Delivery Device NASAL CANNULA VENTILATOR Blood Gas Liter Flow 2 White Blood Count 13.4 Red Blood Count 3.16 Hemoglobin 9.8 Hematocrit 30.1 Mean Corpuscular Volume 95.2 Mean Corpuscular Hemoglobin 31.0 Mean Corpuscular Hemoglobin Concent 32.5 Red Cell Distribution Width 15.2 Platelet Count 285 Mean Platelet Volume 8.0 Neutrophils (%) (Auto) 89.8 Lymphocytes (%) (Auto) 5.4 Monocytes (%) (Auto) 3.1 Eosinophils (%) (Auto) 0.9 Basophils (%) (Auto) 0.8 Neutrophils # (Auto) 12.1 Lymphocytes # (Auto) 0.7 Monocytes # (Auto) 0.4 Eosinophils # (Auto) 0.1 Basophils # (Auto) 0.1 CBC Comment DIFF FINAL Differential Comment Prothrombin Time 10.7 Prothromb Time International Ratio 1.0 Blood Urea Nitrogen 86 Creatinine 10.77 Random Glucose 181 Total Protein 8.3 Albumin 3.6 Calcium Level 10.1 Magnesium Level 3.1 Alkaline Phosphatase 69 Aspartate Amino Transf (AST/SGOT) 23 Alanine Aminotransferase (ALT/SGPT) 21 Total Bilirubin 0.6 Sodium Level 128 Potassium Level 7.9 Chloride Level 94 Carbon Dioxide Level 22.1 Anion Gap 12 Estimat Glomerular Filtration Rate 4 Lactic Acid Level 0.9 Troponin I 1.01 Blood Gas Ventilator Setting PRVC/AC Blood Gas Inspired Oxygen 100 Date/Time Source Procedure Growth Status 12/22/16 10:20 Blood Peripheral Aerobic Blood Culture Pending Received 12/22/16 10:20 Blood Peripheral Anaerobic Blood Culture Pending Received Result Diagram: 12/22/16 1020 12/22/16 1020 Imaging Last Impressions Chest X-Ray 12/22/16 0904 Signed Impressions: Service Date/Time: Thursday, December 22, 2016 09:53 - CONCLUSION: Moderate congestive failure similar to what was seen on 07/08/16. Art Palacios MD FACR Head CT 12/22/16 0000 Signed Impressions: Service Date/Time: Thursday, December 22, 2016 11:03 - CONCLUSION: Old ischemic changes left parietal occipital region, right basalganglia Negative for acute process. Art Palacios MD FACR Caprini VTE Risk Assessment Caprini Risk Assessment Model Point Value = 1 Point Value = 2 Point Value = 3 Point Value = 5 Age 41-60 Minor surgery BMI > 25 kg/m2 Swollen legs Varicose veins or History of unexplained or recurrent spontaneous Oral contraceptives or hormone replacement Sepsis (< 1 month) Serious lung disease, including pneumonia (< 1 month) Abnormal pulmonary function Acute myocardial infarction Congestive heart failure (< 1 month) History of inflammatory bowel disease Medical patient at bed rest Age 61-74 Arthroscopic surgery Major open surgery (> 45 min) Laparoscopic surgery (> 45 min) Malignancy Confined to bed (> 72 hours) Immobilizing plaster cast Central venous access Age >= 75 History of VTE Family history of VTE Factor V Leiden Prothrombin [id number] Lupus anticoagulant Anticardiolipin antibodies Elevated serum homocysteine Heparin-induced thrombocytopenia Other congenital or acquired thrombophilia Stroke (< 1 month) Elective arthroplasty Hip, pelvis, or leg fracture Acute spinal cord injury (< 1 month) Prophylaxis Regimen Total Risk Factor Score Risk Level Prophylaxis Regimen 0-1 Low Early ambulation 2 Moderate Order ONE of the following: *Sequential Compression Device (SCD) *Heparin 5000 units SQ BID 3-4 Higher Order ONE of the following medications: *Heparin 5000 units SQ TID *Enoxaparin/Lovenox 40 mg SQ daily (WT < 150 kg, CrCl > 30 mL/min) *Enoxaparin/Lovenox 30 mg SQ daily (WT < 150 kg, CrCl > 10-29 mL/min) *Enoxaparin/Lovenox 30 mg SQ BID (WT < 150 kg, CrCl > 30 mL/min) AND/OR *Sequential Compression Device (SCD) 5 or more Highest Order ONE of the following medications: *Heparin 5000 units SQ TID (Preferred with Epidurals) *Enoxaparin/Lovenox 40 mg SQ daily (WT < 150 kg, CrCl > 30 mL/min) *Enoxaparin/Lovenox 30 mg SQ daily (WT < 150 kg, CrCl > 10-29 mL/min) *Enoxaparin/Lovenox 30 mg SQ BID (WT < 150 kg, CrCl > 30 mL/min) AND *Sequential Compression Device (SCD) Assessment and Plan Assessment and Plan 56-year-old female with: Encephalopathy: ? Hypertensive encephalopathy versus metabolic - possible uremia versus seizure. Acute respiratory failure Pulmonary edema Hypertensive emergency Hyperkalemia ESRD on hemodialysis Diabetes Hypertension Medical Noncompliance Plan: Neuro: Sedation with propofol, daily sedation vacation. Follow neuro status. Ordered EEG. Head CT negative for bleed. If no improvement in neurologic status following hemodialysis tomorrow consider neuro consult and MRI brain. Cardiovascular: Nicardipine drip for hypertensive emergency. Hydralazine when necessary. Continue clonidine. We'll resume beta avery following hemodialysis for hyperkalemia. Pulmonary: Continue mechanical ventilation, vent bundle, bronchodilators as needed. Daily C Pap trials starting tomorrow to decide extubation. GI/liver: Start tube feeds with Nepro and advanced to goal as tolerated. Renal/: Strict intake output, monitor and replete electrolytes, follow BUN/ creatinine. Emergent hemodialysis being arranged by nephrology for hyperkalemia. ID: Watch for fever. Hold off on antibiotics at this time. Blood cultures sent. Will order sputum for Gram stain and cultures. Heme: Follow CBC Endocrine: SSI for glycemic control. Hold glyburide Prophylaxis: PPI/SCDs/subcutaneous heparin D/w Dr. Rodriguez Condition critical Time spent on critical care excluding procedures 60 minutes. Curtis Grimaldo MD Dec 22, 2016 14:56
[2016-12-22] MEDS: CARVEDILOL 12.5 MG TAB PO SCH ×2 (15:00)
[2016-12-22] MEDS ORDERED: LABETALOL HCL 100 MG/20 ML VIAL IV PUSH PRN ×2 (15:00)
[2016-12-22] MEDS: RESP: ALBUTEROL 2.5 MG/IPRATROPIUM 0.5 MG NEB (SCH) NEB ×4 (16:49→21:12)
--- NOTE | 2016-12-22 17:09 | MG ---
cc: JOSHUA TOLEDO MD Lab No: Date: 12/22/2016 Age: Sex: F Race: DATE OF [address] Grimaldo Stat EEG. The patient is admitted to the ICU for confusion, difficulty walking, combative , respiratory distress, history of anemia, congestive heart failure, hypertension, pancreatitis, renal failure, dialysis, caffeine use, stroke and hypercholesteremia. MEDICATIONS 1. Diprivan. 2. Epogen. 3. Ativan given at 10:38. 4. Protonix. 5. Coreg. 6. Clonidine. DESCRIPTION The patient is intubated on 35 mcg of Diprivan.Hyperventilation was omitted. Photic stimulation done with no driving response. Diprivan was turned off while the patient was on dialysis. Diprivan was given back 9 minutes into the EEG. There is generalized background slowing in the theta range, 5-6 Hz bilateral and symmetrical. There is occasional left temporal sharp activity. There were no electrographic seizures. INTERPRETATION This is an abnormal EEG with generalized slowing that may indicate metabolic derangement, hypoxia or an encephalopathic pattern. There is intermittent left temporal sharp activity that may be epileptogenic in nature. No epileptic seizures were noted. Clinical correlation is recommended. Joshua Toledo MD RGO/KK /4:20 PM /4:49 PM MTDD
[2016-12-22] MEDS ORDERED: CHLORHEXIDINE GLUCONATE 2 % 1 PACK (2 CLOTHS)(extra cloths) TOPICAL PRN ×2 (17:45)
[2016-12-22] MEDS: SEVELAMER CARBONATE 800 MG TAB PO SCH ×2 (18:00)
[2016-12-22] MEDS: HEPARIN SODIUM - SQ 10,000 UNITS/ML VIAL SQ SCH ×2 (20:24)
[2016-12-22] MEDS: CHLORHEXIDINE 0.12% (ORAL KIT) 15 ML CUP MT SCH ×2 (20:25)
[2016-12-22] MEDS: SODIUM CHLORIDE 0.9% FLUSH 10 ML FLUSH IV FLUSH SCH ×2 (20:25)
[2016-12-22 20:51] LABS: BICARBONATE 31.8 MEQ/L (21.0-32.0); CALCIUM 8.8 MG/DL (8.5-10.1); CREATININE 7.11 MG/DL (0.50-1.00)
[2016-12-22] MEDS ORDERED: SODIUM CHLORIDE 0.9% FLUSH 10 ML FLUSH IV FLUSH SCH ×2 (21:00)
[2016-12-22] MEDS ORDERED: DEXTROSE 50% IN WATER 50 ML SYRINGE ONE (21:52)
[2016-12-22] MEDS: INSULIN NovoLIN REGULAR SUPPLEMENTAL SCALE SQ SCH ×2 (22:15)
[2016-12-22] MEDS ORDERED: DEXTROSE 50% IN WATER 50 ML VIAL(D50) IV PUSH PRN (22:15)
[2016-12-22] MEDS ORDERED: GLUCAGON 1 MG/ML VIAL OTHER PRN ×2 (22:15)
[2016-12-22] MEDS ORDERED: DEXT 5%-NACL 0.9% 1000 ML INJ 1,000 ML IV SCH ×2 (22:15)
[2016-12-23] VITALS (20 sets, daily range): BP systolic 129–195; BP diastolic 64–94; PULSE 68–86; RESP 15–32; TEMP 98.3–99.1; O2SAT 92–100
[2016-12-23] MEDS: INSULIN NovoLIN REGULAR SUPPLEMENTAL SCALE SQ SCH ×24 (00:15→22:15)
[2016-12-23] MEDS: PROPOFOL 1000 MG/100 ML INJ 100 ML IV PRN ×4 (02:19→05:34)
[2016-12-23 03:32] LABS: AUTOMATED NEUTROPHIL # 7.9 TH/MM3 (1.8-7.7); BASOPHIL # 0.1 TH/MM3 (0-0.2); BASOPHIL % 0.7 % (0.0-2.0); EOSINOPHIL # 0.3 TH/MM3 (0-0.4); EOSINOPHIL % 2.9 % (0.0-4.0); HEMATOCRIT 26.2 % (35.0-46.0); HEMOGLOBIN 8.6 GM/DL (11.6-15.3); LYMPH % 8.9 % (9.0-44.0); LYMPHOCYTE # 0.9 TH/MM3 (1.0-4.8); MEAN CELL VOLUME 95.1 FL (80.0-100.0); MEAN CORPUSCULAR HEMOGLOBIN 31.1 PG (27.0-34.0); MEAN CORPUSCULAR HGB CONC 32.7 % (32.0-36.0); MONO % 6.7 % (0.0-8.0); MONOCYTE # 0.7 TH/MM3 (0-0.9); NEUT % 80.8 % (16.0-70.0); PLATELET COUNT 254 TH/MM3 (150-450); RED BLOOD COUNT 2.76 MIL/MM3 (4.00-5.30); RED CELL DISTRIBUTION WIDTH 15.4 % (11.6-17.2); WHITE BLOOD COUNT 9.7 TH/MM3 (4.0-11.0)
[2016-12-23] MEDS: RESP: ALBUTEROL 2.5 MG/IPRATROPIUM 0.5 MG NEB (SCH) NEB ×8 (03:40→21:15)
[2016-12-23] MEDS: CHLORHEXIDINE GLUCONATE 2 % 1 PACK (2 CLOTHS)(taper/protocol) TOPICAL SCH ×2 (04:00)
[2016-12-23] MEDS: CHLORHEXIDINE GLUCONATE 2 % 1 PACK (2 CLOTHS) TOP SCH ×2 (04:00)
[2016-12-23 04:09] LABS: ALBUMIN 2.8 GM/DL (3.4-5.0); ALKALINE PHOSPHATASE 56 U/L (45-117); ALT (GPT) 13 U/L (10-53); AST (GOT) 18 U/L (15-37); BICARBONATE 30.6 MEQ/L (21.0-32.0); BLOOD UREA NITROGEN 51 MG/DL (7-18); CALCIUM 8.9 MG/DL (8.5-10.1); CHLORIDE 96 MEQ/L (98-107); CREATININE 7.66 MG/DL (0.50-1.00); GLOMERULAR FILTRATION RATE 6 ML/MIN (>89); GLUCOSE,RANDOM 93 MG/DL (74-106); SODIUM (NA) 136 MEQ/L (136-145); TOTAL BILIRUBIN ADULT 0.4 MG/DL (0.2-1.0)
[2016-12-23] MEDS: CYANOCOBALAMIN 1,000 MCG TAB PO SCH ×2 (07:41)
[2016-12-23] MEDS: cloNIDine HCL 0.2 MG TAB PO SCH ×4 (07:41→21:52)
[2016-12-23] MEDS: LANSOPRAZOLE SOLUTAB 30 MG TAB TUBE SCH ×2 (07:41)
[2016-12-23] MEDS: CARVEDILOL 12.5 MG TAB PO SCH ×4 (07:44→21:52)
[2016-12-23] MEDS: ASPIRIN EC 81 MG TABEC PO SCH ×2 (08:00)
[2016-12-23] MEDS: SEVELAMER CARBONATE 800 MG TAB PO SCH ×6 (08:00→18:21)
[2016-12-23] MEDS: HEPARIN SODIUM - SQ 10,000 UNITS/ML VIAL SQ SCH ×4 (09:20→21:51)
[2016-12-23] MEDS: CHLORHEXIDINE 0.12% (ORAL KIT) 15 ML CUP MT SCH ×4 (09:23→19:56)
[2016-12-23] MEDS: SODIUM CHLORIDE 0.9% FLUSH 10 ML FLUSH IV FLUSH SCH ×4 (09:24→21:52)
--- NOTE | 2016-12-23 10:42 | HHI.CCPN ---
Subjective Remarks/Hospital Course 56-year-old female with a medical history significant for end-stage renal disease on hemodialysis, diabetes mellitus, medical noncompliance who reportedly missed hemodialysis session. Patient is having difficulty waking up and was combative at home as well as confused. She was found on the floor with a blanket on and sleeping by her . EMS was called and per documentation the house wasn't very poor hygienic condition. Patient was covered with stool as well. She was noted to have an O2 sat of 94% on room air. 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 She was brought to the ER and was noted to have minimal respiratory distress and was very combative. She was noted to have a potassium of 7.9. She underwent a head CT however received some Versed for the scan and subsequently became very lethargic and was intubated emergently and placed on mechanical ventilation by ER physician. She also had a central line placed in the left subclavian vein by Dr. Rodriguez in the ER as she had extremely poor vascular access and was subsequently placed on propofol for sedation. Patient was initially accepted by hospitalist service however subsequently critical care medicine was contacted and patient was accepted for admission by critical care medicine service. I evaluated the patient in the ER earlier and at that time she was sedated with propofol, orally intubated on mechanical ventilation. Nephrology was already contacted by ER physician and is arranging hemodialysis. SUBJ 12/23/16: Tolerating CPAP, 11/27. Off sedation, Following commands. HD yesterday with 3.5L removed. Check CXR today, possible extubation if pulmonary edema improved Objective Vital Signs Date Time Temp Pulse Resp B/P (MAP) Pulse Ox O2 Delivery O2 Flow Rate FiO2 12/23/16 10:00 74 12/23/16 09:00 161/75 (103) 12/23/16 08:00 98.3 16 12/23/16 08:00 35 12/23/16 07:53 100 12/22/16 11:01 Nasal Cannula 3.00 Intake and Output 12/23/16 12/23/16 12/24/16 08:00 16:00 00:00 Intake Total 801 ml Output Total 0 ml Balance 801 ml Result Diagram: 12/23/16 0300 12/23/16 0300 Other Results Laboratory Tests Test 12/22/16 12:50 Blood Gas Puncture Site RT RADIAL Blood Gas Patient Temperature 98.6 Blood Gas HCO3 25 mmol/L (22-26) Blood Gas Base Excess 0.0 mmol/L (-2-2) Blood Gas Oxygen Saturation 98 % (90-100) Arterial Blood pH 7.35 (7.380-7.420) Arterial Blood Partial Pressure CO2 46 mmHg (38-42) Arterial Blood Partial Pressure O2 422 mmHG (61-120) Arterial Blood Oxygen Content 14.2 Vol % (12.0-20.0) Arterial Blood Carboxyhemoglobin 1.3 % (0-4) Arterial Blood Methemoglobin 0.8 % (0-2) Blood Gas Hemoglobin 9.5 G/DL (12.0-16.0) Oxygen Delivery Device VENTILATOR Blood Gas Ventilator Setting PRVC/AC Blood Gas Inspired Oxygen 100 % Imaging Last Impressions Chest X-Ray 12/22/16 0904 Signed Impressions: Service Date/Time: Thursday, December 22, 2016 09:53 - CONCLUSION: Moderate congestive failure similar to what was seen on 07/08/16. Art Palacios MD FACR Head CT 12/22/16 0000 Signed Impressions: Service Date/Time: Thursday, December 22, 2016 11:03 - CONCLUSION: Old ischemic changes left parietal occipital region, right basalganglia Negative for acute process. Art Palacios MD FACR Objective Remarks HEENT: Pallor present, no icterus, tongue/ mucosa moist Neck: No JVD Chest/Pulm: on mech vent, equal air entry bilaterally, mild wheezing and basilar crackles CVS: S1-S2 regular, no murmur GI/abdomen: soft, nontender, bowel sounds sluggish Extremities: warm bilaterally, no edema Neuro: Off sedation, orally intubated, following commands, moving extremities 4 A/P Assessment and Plan 56-year-old female with: Encephalopathy: ? Hypertensive encephalopathy versus metabolic - possible uremia versus seizure. Acute respiratory failure Pulmonary edema Hypertensive emergency Hyperkalemia ESRD on hemodialysis Diabetes Hypertension Medical Noncompliance Plan: Neuro: - Hold sedation for weaning trial. Follow neuro status. - EEG-Left temporal sharps. Will consult neurology - Head CT negative for bleed. Cardiovascular: - Nicardipine drip for hypertensive emergency. Hydralazine when necessary. Continue clonidine, coreg. - Resume Procardia XL - S/p HD with 3/5 L removed Pulmonary: - Continue mechanical ventilation, vent bundle, bronchodilators as needed. - C Pap trials with possible extubation GI/liver: - NPO for possible extubation Renal/: - Strict intake output, monitor and replete electrolytes, follow BUN/ creatinine. - Emergent hemodialysis yesterday per nephrology for hyperkalemia. ID: - Watch for fever. Hold off on antibiotics at this time. Blood cultures sent. F/u sputum for Gram stain and cultures. Heme: - Follow CBC Endocrine: - SSI for glycemic control. Hold glyburide Prophylaxis: - PPI/SCDs/subcutaneous heparin D/w bedside RN Level 2 Deja Macedo MD Dec 23, 2016 10:42
--- NOTE | 2016-12-23 11:05 | RADRPT ---
EXAM DATE/TIME: 12/23/2016 10:43 [facility] COMPARISON: CHEST SINGLE AP, December 22, 2016, 12:53. INDICATIONS : Short of breath. MEDICAL HISTORY : Stroke. Hypertension SURGICAL HISTORY : None. ENCOUNTER: Initial ACUITY: 1 day PAIN SCORE: Non-responsive. LOCATION: Bilateral chest FINDINGS: ET tube tip well above the miky. Gastric tube traverses the field of view. Left subclavian cathet er projects over the innominate vein. There is blunting of the left costophrenic angle and hazy opac ity in left lower chest which is a new finding compared yesterday's chest x-ray. No focal areas of c onsolidation in the right lung, but there is some indistinctness of the bronchopulmonary markings in the infrahilar region. CONCLUSION: 1. Interval development of left pleural effusion. 2. Stable indistinctness of the bronchopulmonary markings without focal areas of consolidation. Navneet Valentino MD on December 23, 2016 at 11:02 Board Certified Radiologist. This report was verified electronically.
[2016-12-23 11:23] LABS: ALBUMIN 2.9 GM/DL (3.4-5.0); AST (GOT) 24 U/L (15-37); BICARBONATE 28.5 MEQ/L (21.0-32.0); BLOOD UREA NITROGEN 59 MG/DL (7-18); CHLORIDE 96 MEQ/L (98-107); CREATININE 8.07 MG/DL (0.50-1.00); GLOMERULAR FILTRATION RATE 5 ML/MIN (>89); GLUCOSE,RANDOM 135 MG/DL (74-106); SODIUM (NA) 135 MEQ/L (136-145)
[2016-12-23 11:26] LABS: ALKALINE PHOSPHATASE 54 U/L (45-117); ALT (GPT) 14 U/L (10-53); TOTAL BILIRUBIN ADULT 0.5 MG/DL (0.2-1.0)
[2016-12-23] MEDS: NIFEdipine 60 MG SUSTAINED RELEASE TAB PO SCH ×4 (11:50→21:51)
--- NOTE | 2016-12-23 12:05 | HHI.NPPN ---
Subjective History of Present Illness 56 year old female with AMS Esrd Hyperkalemia Additional Remarks tired Review of Systems General Constitutional: Fatigue Objective Data Data Vital Signs Date Time Temp Pulse Resp B/P (MAP) Pulse Ox O2 Delivery O2 Flow Rate FiO2 12/23/16 10:22 95 35 12/23/16 10:00 74 12/23/16 09:00 161/75 (103) 12/23/16 08:00 98.3 68 16 180/92 (121) 12/23/16 08:00 74 12/23/16 08:00 35 12/23/16 07:53 100 35 12/23/16 06:30 35 12/23/16 06:30 35 12/23/16 06:00 74 12/23/16 04:41 98 35 12/23/16 04:00 76 17 145/82 (103) 97 12/23/16 04:00 40 12/23/16 04:00 76 12/23/16 02:00 71 12/23/16 01:15 100 35 12/23/16 00:00 40 12/23/16 00:00 98.3 70 15 129/76 (93) 98 12/23/16 00:00 70 12/22/16 22:18 98 40 12/22/16 22:00 74 15 108/60 (76) 97 12/22/16 22:00 74 12/22/16 20:00 98.5 77 15 150/81 (104) 100 12/22/16 20:00 40 12/22/16 20:00 77 12/22/16 19:25 99 40 12/22/16 18:00 82 12/22/16 16:49 100 40 12/22/16 16:00 93 12/22/16 16:00 98.2 86 15 103/66 (78) 100 12/22/16 14:00 96 12/22/16 13:35 97.6 97 15 273/133 (179) 97 12/22/16 13:31 12/22/16 12:29 97.7 103 18 254/110 (158) 98 -: 12/23/16 0300 12/23/16 1045 Physical Exam General Appearance: Pale Neck Neck Exam: Neck Supple Pulmonary Resp Exam: Rhonchi, Decreased Bases Cardiology CV Exam: Regular Gastrointestinal/Abdomen GI Exam: Soft, Bowel Sounds Present Extremeties Extremities Exam: No Edema Assessment/Plan Problem List: (1) End stage renal disease on dialysis ICD Codes: N18.6 - End stage renal disease; Z99.2 - Dependence on renal dialysis Status: Acute Plan: On hemodialysis. K 5.6 2nd treatment today She chose to remain noncompliant This will lead to higher morbidity and mortality Continue to monitor (2) Diabetes mellitus ICD Codes: E11.9 - Type 2 diabetes mellitus without complications Status: Chronic Plan: Continue to monitor blood sugars (3) Hypertension ICD Codes: I10 - Essential (primary) hypertension Status: Chronic Plan: Monitor in the hospital (4) Non-compliance ICD Codes: Z91.19 - Patient's noncompliance with other medical treatment and regimen Status: Chronic (5) Congestive heart disease ICD Codes: I50.9 - Heart failure, unspecified Status: Acute Plan: Noncompliance lead to fluid accumulation and congestive heart failure. Hemodialysis is in progress Problem Qualifiers (1) Diabetes mellitus: (2) Congestive heart disease: Qualified Codes: I50.9 - Heart failure, unspecified Sylvain Freedman MD Dec 23, 2016 12:05
--- NOTE | 2016-12-23 12:16 | HHI.HCPN ---
Reason for visit a. To assist with evaluation and management of symptoms including: dyspnea, encephalopathy b. To assist medical decision maker(s) with: better understanding of current medical conditions; weighing benefits/burdens of medical treatment options; making medical treatment decisions. Subjective/Interval History Pt seen today to follow up on comfort , goals . Before my arrival to unit received call from pt requesting update on pt conditions, advise I will call once I have examined her. Pt stable overnight, S/p HD yesterday. EEG done, +encephalopathy. CXR = left pleural effusion. BC negative x1 day. Neurology consult pending. H&H down slightly 8.6/26.7. CPAP trials ongoing. Pt extubated 30 min prior to my arrival to unit, tolerating NC O2. She is awake , though still groggy. She is oriented to self, . Not aware she is in hospital. Poor/no insight. She does follow simple commands. She repeats "I miss my " to other questions, including when I asked if in pain, or if she felt short of breath. Advise I would call him to update on her status. She does not have enough insight at this point to explore conditions/goals etc. Of note the patient has had several hospital admissions this year per review of EMR: *08/29/16 - 08/30/16=renal failure, hyperkalemia, pancreatitis; at that time she presented having missed dialysis, she had some confusion and was a poor historian. *06/19/16- 06/21/16 = pancreatitis, abdominal pain; noted to have hypertension and not following recommended medications. Also previously counseled to undergo EGD colonoscopy for prior anemia/GI issues for which she refused. At admission she did undergo EGD with biopsy and colonoscopy findings of gastritis , duodenal ulcer and poor colon prep. Recommended to repeat in 2-3 months. bx negative for H. pylori,+ gastritis. She was discharged home with home health. There was some concern about the patient's home living situation at that time and patient and spouse ability to care for themselves however they did not want to be placed anywhere due to not wanting to lose their dogs. Spouse was also apparently hospitalized at the same time. *06/16/16- 06/18/16= presented for blood pressure check, also reported her was ill(he apparently has complicated medical history). She was a poor historian. Severe anemia hemoglobin 6.7/hematocrit 20.1. Systolic BP 250 at presentation. She had been seen earlier in May for hemoglobin of 4 but apparently refused workup and did not adhere to recommended treatments. Patient spouse in the hospital, some concerns about her living conditions. 05/24/16- 05/31/69 = severe anemia, AMS, melena; during hemodialysis she had altered mental status she presented to the ED with hemoglobin 4.3. She also had coffee-ground emesis. She repeatedly refused GI endoscopic evaluation. Head CT 05/24/16 Area of decreased density high in the left parieto-occipital region. Patient refusing MRI. + DVT distal basilic vein. Troponin elevated though patient not a candidate for anticoagulation due to GI bleed. Palliative care consulted this admission to assist with clarification of goals of treatment. At that time patient expressing aggressive goals however refusing workup and requesting discharge. 04/08/16- 04/09/69 = hypertensive emergency, ESRD; pt at that time noted to not comply with recommended dialysis/renal failure treatment plans including fluid restrictions, dietary restrictions, + hypertension; reported to not follow with a primary care provider. severe hypertension to 247/129 and fluid overload, and nonadherence to dialysis and fluid restrictions. Family/friend interactions Following exam call to patient -updated on current conditions, extubation status. He is very excited to hear she is extubated. I again reviewed with him that she continues to have significant illness does still remain at risk for complications and medical issues, and going forward will need ongoing discussions regarding her prognosis, conditions and medical treatment options. He appears to have a very simple understanding of her conditions and overall prognosis. He may come up to visit her today or tomorrow he has transportation limitations. All questions answered. He remains hopeful she will continue to get better, goals are aggressive. . Advance Directives Living Will: Never completed Health Care Surrogate: Never completed Durable Power of Log Clerk: Never completed Objective Vital Signs Date Time Temp Pulse Resp B/P (MAP) Pulse Ox O2 Delivery O2 Flow Rate FiO2 12/23/16 10:22 95 35 12/23/16 10:00 74 12/23/16 09:00 161/75 (103) 12/23/16 08:00 98.3 68 16 180/92 (121) 12/23/16 08:00 74 12/23/16 08:00 35 12/23/16 07:53 100 35 12/23/16 06:30 35 12/23/16 06:30 35 12/23/16 06:00 74 12/23/16 04:41 98 35 12/23/16 04:00 76 17 145/82 (103) 97 12/23/16 04:00 40 12/23/16 04:00 76 12/23/16 02:00 71 12/23/16 01:15 100 35 12/23/16 00:00 40 12/23/16 00:00 98.3 70 15 129/76 (93) 98 12/23/16 00:00 70 12/22/16 22:18 98 40 12/22/16 22:00 74 15 108/60 (76) 97 12/22/16 22:00 74 12/22/16 20:00 98.5 77 15 150/81 (104) 100 12/22/16 20:00 40 12/22/16 20:00 77 12/22/16 19:25 99 40 12/22/16 18:00 82 12/22/16 16:49 100 40 12/22/16 16:00 93 12/22/16 16:00 98.2 86 15 103/66 (78) 100 12/22/16 14:00 96 12/22/16 13:35 97.6 97 15 273/133 (179) 97 12/22/16 13:31 12/22/16 12:29 97.7 103 18 254/110 (158) 98 12/22/16 12:01 100 12/22/16 11:55 100 100 Intake & Output 12/23/16 12/23/16 07:00 19:00 Intake Total 901 ml Output Total 0 ml Balance 901 ml Intake IV Total 652 ml Tube Feeding 189 ml Tube Irrigant 60 ml Output Urine Total 0 ml Physical Exam CONSTITUTIONAL/GENERAL: This is obese patient, extubated, no distress TUBES/LINES/DRAINS: Peripheral IV right thumb, central line left subclavian, NC O2 SKIN: No jaundice, rashes, or lesions. No wounds seen anteriorly. Skin warm, dry. NECK: Trachea midline. Supple, nontender. No palpable thyroid enlargement or nodularity. CARDIOVASCULAR: Regular rate and rhythm without murmur. Peripheral pulses symmetric. RESPIRATORY/CHEST: Symmetric, unlabored respirations on NC. Breath sounds clear , equal bilaterally. GASTROINTESTINAL: Abdomen soft, obese, nondistended. No hepato-splenomegaly, or palpable masses. Bowel sounds present. MUSCULOSKELETAL: Extremities without clubbing, cyanosis, or edema. No joint effusion noted. Lower Extremities thin in comparison to body habitus. NEUROLOGICAL: awake, though still somewhat lethargic/confused. Oriented to self/ . Little to no insight on hospitalization or conditions. Moves all 4 extremities, follows some commands. Repetitive speech. PSYCHIATRIC: No obvious anxiety/depression- limited assessment. . Diagnostic Tests Laboratory Laboratory Tests Test 12/22/16 09:50 12/22/16 10:20 12/22/16 12:50 12/22/16 14:25 Blood Gas Puncture Site RT RADIAL RT RADIAL Blood Gas Patient Temperature 98.6 98.6 Blood Gas HCO3 20 mmol/L (22-26) 25 mmol/L (22-26) Blood Gas Base Excess -3.7 mmol/L (-2-2) 0.0 mmol/L (-2-2) Blood Gas Oxygen Saturation 92 % (90-100) 98 % (90-100) Arterial Blood pH 7.39 (7.380-7.420) 7.35 (7.380-7.420) Arterial Blood Partial Pressure CO2 34 mmHg (38-42) 46 mmHg (38-42) Arterial Blood Partial Pressure O2 74 mmHG (61-120) 422 mmHG (61-120) Arterial Blood Oxygen Content 12.5 Vol % (12.0-20.0) 14.2 Vol % (12.0-20.0) Arterial Blood Carboxyhemoglobin 1.7 % (0-4) 1.3 % (0-4) Arterial Blood Methemoglobin 0.7 % (0-2) 0.8 % (0-2) Blood Gas Hemoglobin 9.6 G/DL (12.0-16.0) 9.5 G/DL (12.0-16.0) Oxygen Delivery Device NASAL CANNULA VENTILATOR Blood Gas Liter Flow 2 L/M White Blood Count 13.4 TH/MM3 (4.0-11.0) Red Blood Count 3.16 MIL/MM3 (4.00-5.30) Hemoglobin 9.8 GM/DL (11.6-15.3) Hematocrit 30.1 % (35.0-46.0) Mean Corpuscular Volume 95.2 FL (80.0-100.0) Mean Corpuscular Hemoglobin 31.0 PG (27.0-34.0) Mean Corpuscular Hemoglobin Concent 32.5 % (32.0-36.0) Red Cell Distribution Width 15.2 % (11.6-17.2) Platelet Count 285 TH/MM3 (150-450) Mean Platelet Volume 8.0 FL (7.0-11.0) Neutrophils (%) (Auto) 89.8 % (16.0-70.0) Lymphocytes (%) (Auto) 5.4 % (9.0-44.0) Monocytes (%) (Auto) 3.1 % (0.0-8.0) Eosinophils (%) (Auto) 0.9 % (0.0-4.0) Basophils (%) (Auto) 0.8 % (0.0-2.0) Neutrophils # (Auto) 12.1 TH/MM3 (1.8-7.7) Lymphocytes # (Auto) 0.7 TH/MM3 (1.0-4.8) Monocytes # (Auto) 0.4 TH/MM3 (0-0.9) Eosinophils # (Auto) 0.1 TH/MM3 (0-0.4) Basophils # (Auto) 0.1 TH/MM3 (0-0.2) CBC Comment DIFF FINAL Differential Comment Prothrombin Time 10.7 SEC (9.8-11.6) Prothromb Time International Ratio 1.0 RATIO Blood Urea Nitrogen 86 MG/DL (7-18) Creatinine 10.77 MG/DL (0.50-1.00) Random Glucose 181 MG/DL (74-106) Total Protein 8.3 GM/DL (6.4-8.2) Albumin 3.6 GM/DL (3.4-5.0) Calcium Level 10.1 MG/DL (8.5-10.1) Magnesium Level 3.1 MG/DL (1.5-2.5) Alkaline Phosphatase 69 U/L (45-117) Aspartate Amino Transf (AST/SGOT) 23 U/L (15-37) Alanine Aminotransferase (ALT/SGPT) 21 U/L (10-53) Total Bilirubin 0.6 MG/DL (0.2-1.0) Sodium Level 128 MEQ/L (136-145) Potassium Level 7.9 MEQ/L (3.5-5.1) 7.0 MEQ/L (3.5-5.1) Chloride Level 94 MEQ/L (98-107) Carbon Dioxide Level 22.1 MEQ/L (21.0-32.0) Anion Gap 12 MEQ/L (5-15) Estimat Glomerular Filtration Rate 4 ML/MIN (>89) Lactic Acid Level 0.9 mmol/L (0.4-2.0) Troponin I 1.01 NG/ML (0.02-0.05) Blood Gas Ventilator Setting [facility]/ Blood Gas Inspired Oxygen 100 % Test 12/22/16 19:51 12/22/16 20:40 12/23/16 03:00 12/23/16 10:45 Blood Urea Nitrogen 49 MG/DL (7-18) 51 MG/DL (7-18) 59 MG/DL (7-18) Creatinine 7.11 MG/DL (0.50-1.00) 7.66 MG/DL (0.50-1.00) 8.07 MG/DL (0.50-1.00) Random Glucose 57 MG/DL (74-106) 93 MG/DL (74-106) 135 MG/DL (74-106) Calcium Level 8.8 MG/DL (8.5-10.1) 8.9 MG/DL (8.5-10.1) 9.0 MG/DL (8.5-10.1) Sodium Level 136 MEQ/L (136-145) 136 MEQ/L (136-145) 135 MEQ/L (136-145) Potassium Level 4.6 MEQ/L (3.5-5.1) 5.6 MEQ/L (3.5-5.1) 5.6 MEQ/L (3.5-5.1) Chloride Level 97 MEQ/L (98-107) 96 MEQ/L (98-107) 96 MEQ/L (98-107) Carbon Dioxide Level 31.8 MEQ/L (21.0-32.0) 30.6 MEQ/L (21.0-32.0) 28.5 MEQ/L (21.0-32.0) Anion Gap 7 MEQ/L (5-15) 9 MEQ/L (5-15) 11 MEQ/L (5-15) Estimat Glomerular Filtration Rate 6 ML/MIN (>89) 6 ML/MIN (>89) 5 ML/MIN (>89) Nasal Screen MRSA (PCR) MRSA NOT DETECTED (NOT White Blood Count 9.7 TH/MM3 (4.0-11.0) Red Blood Count 2.76 MIL/MM3 (4.00-5.30) Hemoglobin 8.6 GM/DL (11.6-15.3) Hematocrit 26.2 % (35.0-46.0) Mean Corpuscular Volume 95.1 FL (80.0-100.0) Mean Corpuscular Hemoglobin 31.1 PG (27.0-34.0) Mean Corpuscular Hemoglobin Concent 32.7 % (32.0-36.0) Red Cell Distribution Width 15.4 % (11.6-17.2) Platelet Count 254 TH/MM3 (150-450) Mean Platelet Volume 8.0 FL (7.0-11.0) Neutrophils (%) (Auto) 80.8 % (16.0-70.0) Lymphocytes (%) (Auto) 8.9 % (9.0-44.0) Monocytes (%) (Auto) 6.7 % (0.0-8.0) Eosinophils (%) (Auto) 2.9 % (0.0-4.0) Basophils (%) (Auto) 0.7 % (0.0-2.0) Neutrophils # (Auto) 7.9 TH/MM3 (1.8-7.7) Lymphocytes # (Auto) 0.9 TH/MM3 (1.0-4.8) Monocytes # (Auto) 0.7 TH/MM3 (0-0.9) Eosinophils # (Auto) 0.3 TH/MM3 (0-0.4) Basophils # (Auto) 0.1 TH/MM3 (0-0.2) CBC Comment DIFF FINAL Differential Comment Total Protein 7.0 GM/DL (6.4-8.2) 7.0 GM/DL (6.4-8.2) Albumin 2.8 GM/DL (3.4-5.0) 2.9 GM/DL (3.4-5.0) Alkaline Phosphatase 56 U/L (45-117) 54 U/L (45-117) Aspartate Amino Transf (AST/SGOT) 18 U/L (15-37) 24 U/L (15-37) Alanine Aminotransferase (ALT/SGPT) 13 U/L (10-53) 14 U/L (10-53) Total Bilirubin 0.4 MG/DL (0.2-1.0) 0.5 MG/DL (0.2-1.0) Result Diagram: 12/23/16 0300 12/23/16 1045 Microbiology Microbiology Date/Time Source Procedure Growth Status 12/22/16 10:20 Blood Peripheral Aerobic Blood Culture - Preliminary NO GROWTH IN 1 DAY Resulted 12/22/16 10:20 Blood Peripheral Anaerobic Blood Culture - Preliminary NO GROWTH IN 1 DAY Resulted 12/22/16 10:15 Blood Peripheral Aerobic Blood Culture - Preliminary NO GROWTH IN 1 DAY Resulted 12/22/16 10:15 Blood Peripheral Anaerobic Blood Culture - Preliminary NO GROWTH IN 1 DAY Resulted Imaging Last Impressions Chest X-Ray 12/23/16 0000 Signed Impressions: Service Date/Time: Friday, December 23, 2016 10:43 - CONCLUSION: 1. Interval development of left pleural effusion. 2. Stable indistinctness of the bronchopulmonary markings without focal areas of consolidation. Navneet Valentino MD Head CT 12/22/16 0000 Signed Impressions: Service Date/Time: Thursday, December 22, 2016 11:03 - CONCLUSION: Old ischemic changes left parietal occipital region, right basalganglia Negative for acute process. Art Palacios MD FACR Procedures 12/22/16- intubated 12/22/16 -central line left subclavian. . Assessment and Plan Disease Oriented Problem List: (1) Altered mental status (2) Diabetes mellitus (3) Hypertension (4) End stage renal disease on dialysis (5) Congestive heart disease (6) Respiratory failure (7) Elevated troponin Symptom Scale: (1) Encephalopathy 0-10 Scale: Unable to quantify (2) Dyspnea 0-10 Scale: Unable to quantify Pertinent Non-Medical Issues Psychosocial:Per EMR: to her for about 10 years. Originally from [place], moved to [place] earlier in the past year to be in a warmer climate. No children, though her Bandar does have one daughter in [place]. Patient apparently with complicated/complex medical conditions status post recent leg amputation. Weighted high school education. Neither she nor her have been able to work recently. Spiritual: Confucianist, no particular affiliation Legal:Patient is now intubated and sedated and unable to participate in decision -making. Prior visits note that she is a poor historian not known if she is capacitated or if she will regain capacity. Does not appear she has advanced directives or HCS, per [place] statutes her would be appropriate legal proxy. Ethical issues impacting care: No ethical issues identified at this time. Important Contacts Bandar Patel () [phone] / [facility] [phone] sister [phone] . Prognosis This patient was admitted for AMS, required medication to complete imaging for workup, she is now intubated and sedated. She has end-stage renal disease requiring hemodialysis, she has had recent hospitalizations secondary to complications of this. She will likely continue to experience complications and setbacks and further decline secondary to her chronic medical conditions, based on her history. She may be appropriate for hospice if goals compatible and she no longer desires aggressive interventions for ESRD. Code Status: Full Code Plan * Legal decision maker: Patient is now intubated and sedated and unable to participate in decision-making. Prior visits note that she is a poor historian not known if she was capacitated or if she will regain capacity. Does not appear she has advanced directives or HCS, per [place] statutes her would be appropriate legal proxy.As per later conversation with patient ; they do not have advanced directives he would be appropriate legal proxy. Patient extubated today, she is not oriented, and insightful enough to complete advanced directives or health care surrogate designation however will continue to attempt to facilitate this during hospital course. * Goals: During initial consultation spoke with discussed conditions and overall prognosis at length, he expresses aggressive goals that the patient would want to continue whatever treatments indicated to help her live and recover, including full code. 12/23 patient (proxy) continues to express aggressive goals he is hopeful she can improve. * CODE STATUS: Full * SYMPTOMS: --Encephalopathy/AMS-? 2/2 ESRD. ? prior hx CVA. Baseline not known though prior hospital visits describe her as a poor historian. --Dyspnea- intubated 12/22/16 for inability to protect airway; tolerated CPAP , medically extubated 12/23, prior to my arrival today. At time of my exam breathing comfortably on nasal cannula. * Palliative care will continue to follow during hospital course as condition evolves, to assist patient/decision-maker with understanding of medical conditions, weighing benefits/burdens of treatment options, for clarification of goals of treatment. Additionally will assist with any symptoms of palliative concern . Time Spent Total Floor Time (mins): 25 (Discussed with RN, critical care, PE, chart review , family conversation) Attestation To help prompt me to consider important information that might be impacting today's encounter and assessment, information from prior notes written by myself or my colleagues may have been "brought forward" into today's note. My signature on this note, however, is an attestation that I personally performed the exam, history, and/or decision-making noted today, and, unless otherwise indicated, the interactions with patient, family, and staff as well as the review of records all occurred today. I also attest that the listed assessment and stated plan reflect my best clinical judgment today based on the combination of historical information, prior notes, and today's exam/ interactions. When time spent is documented, it refers only to time spent today by the signer, or if indicated, combined time spent today by collaborating physician/nurse practitioner. Alissa Arellano Dec 23, 2016 12:16
[2016-12-23] MEDS ORDERED: INSULIN DETEMIR 100 UNITS/ML VIAL SQ SCH ×2 (13:40)
[2016-12-23] MEDS: ACETAMINOPHEN 325 MG TAB PO PRN ×4 (13:45→23:11)
[2016-12-23] MEDS: EPOETIN ALFA 10,000 UNITS/ML VIAL IV PUSH PRN ×2 (17:30)
[2016-12-23] MEDS: GELATIN 12 MM/7 MM FOAM TOP PRN ×2 (17:31)
[2016-12-23] MEDS ORDERED: HALOPERIDOL LACTATE 5 MG/ML AMP IV PUSH ONE ×2 (21:00)
[2016-12-23] MEDS: levETIRAcetam INJ 500 MG in SODIUM CHLORIDE 0.9% INJ 100 ML IV SCH ×4 (23:11)
--- NOTE | 2016-12-23 23:22 | MB ---
cc: JOSHUA JON MD DATE OF CONSULTATION: 12/23/2016 REASON FOR CONSULTATION: "Left temporal sharps on EEG." HISTORY OF PRESENT ILLNESS Ms. Patel is a 56-year-old female who is seen while being dialyzed with registered nurse at the bedside. No family at the bedside. The patient is a poor historian thus the medical history is obtained from medical records and registered nurse. Ms. Patel is a 56-year-old female with past medical history significant for end-stage renal disease on hemodialysis, diabetes mellitus, with medical noncompliance who had reportedly missed hemodialysis sessions. She was found at home confused and combative on the floor. EMS were called. The house was in a very poor hygienic condition. The patient was also covered with stool. Oxygen sat was 94, confused. Her potassium was highly elevated at 7.9. Head CT scan without contrast revealed old ischemic changes on the left parietal occipital region and right basal ganglia negative for acute process. PAST MEDICAL HISTORY: Anemia. Hypercholesterolemia congestive heart failure coronary artery disease diabetes, chronic CKD on hemodialysis. PAST SURGICAL HISTORY Left forearm fistula SOCIAL HISTORY No alcohol, tobacco or substance abuse. ALLERGIES No known allergies. MEDICATIONS 1. Protonix. 2. Clonidine. 3. Nifedipine. 4. Aspirin 5. Vitamin B12 6. Glyburide 7. Renvela FAMILY HISTORY Noncontributory PHYSICAL EXAMINATION General: Overweight, pale, in mild distress. Apathetic look. HEENT: Atraumatic, normocephalic. Abnormal facial hair growth, pale. Intact hearing. Intact vision. Respiratory: Clear to auscultation. No wheezes. Cardiovascular: Regular rate and rhythm. Abdomen: Soft, nontender. Extremities: Moves extremities equally. No cyanosis, no edema. Neurological: Awake, alert, oriented to person, not to place, not to time. Cranial nerve are grossly intact. Moves upper and lower extremities, unable to accurately assess the muscle strength due to lack of cooperation. Intact sensation throughout, reflexes 1+ bilateral and symmetrical. Plantars bilaterally downgoing. Psychiatric: Apathetic look. No hallucinations. LABORATORY DATA WBC 9.7, hemoglobin 8.6, platelet 2.54. White blood cells 135, potassium 5.6, initially 7.9, chloride 96, BUN 59, creatinine 8.7, random glucose 135, albumin to 0.9, INR 1. IMAGING STUDIES Head CT scan without contrast revealed old ischemic changes left parietal occipital region with right basal ganglia. Negative for an acute process. DIAGNOSTIC IMPRESSION 1. Encephalopathy. Likely etiology is metabolic / uremic. 2. Possible seizure. 3. Non-witnessed episode with high possibility with brief abnormality on prior EEG. 4. Acute respiratory failure. 5. Hypertensive emergency 6. Hypernatremia 7. End-stage renal disease on hemodialysis. 8. Diabetes. 9. Hypertension. PLAN: 1. Neuro checks q. one hourly. 2. Keppra 500 mg twice daily. 3. Continue supportive medical therapy. 4. Replenish electrolytes 5. Continue hemodialysis at scheduled days 6. DVT prophylaxis, SCDs. 7. GI prophylaxis. 8. Seizure precautions. Thank you for the opportunity to participate in the care of your patient. MD MARLYS Oliva/EMILIA /10:33 PM /10:58 PM ANGEL
[2016-12-24] VITALS (13 sets, daily range): BP systolic 112–153; BP diastolic 64–85; PULSE 61–81; RESP 23–34; TEMP 98.1–98.5; O2SAT 87–99
[2016-12-24] MEDS: INSULIN NovoLIN REGULAR SUPPLEMENTAL SCALE SQ SCH ×16 (00:15→18:00)
[2016-12-24] MEDS: CHLORHEXIDINE GLUCONATE 2 % 1 PACK (2 CLOTHS) TOP SCH ×2 (04:00)
[2016-12-24] MEDS: CHLORHEXIDINE GLUCONATE 2 % 1 PACK (2 CLOTHS)(taper/protocol) TOPICAL SCH ×2 (04:00)
[2016-12-24] MEDS: RESP: ALBUTEROL 2.5 MG/IPRATROPIUM 0.5 MG NEB (SCH) NEB ×8 (04:00→21:28)
[2016-12-24] MEDS: CHLORHEXIDINE 0.12% (ORAL KIT) 15 ML CUP MT SCH ×4 (08:00→20:00)
[2016-12-24] MEDS: diphenhydrAMINE HCL 25 MG CAP PO PRN ×4 (08:32→22:17)
[2016-12-24] MEDS: GELATIN 12 MM/7 MM FOAM TOP PRN ×2 (08:45)
[2016-12-24] MEDS: EPOETIN ALFA 10,000 UNITS/ML VIAL IV PUSH PRN ×2 (08:46)
[2016-12-24] MEDS: SODIUM CHLORIDE 0.9% FLUSH 10 ML FLUSH IV FLUSH SCH ×4 (09:00→22:04)
[2016-12-24] MEDS: NIFEdipine 60 MG SUSTAINED RELEASE TAB PO SCH ×4 (09:00→22:03)
[2016-12-24] MEDS: HEPARIN SODIUM - SQ 10,000 UNITS/ML VIAL SQ SCH ×4 (12:02→21:59)
[2016-12-24] MEDS: levETIRAcetam INJ 500 MG in SODIUM CHLORIDE 0.9% INJ 100 ML IV SCH ×8 (12:02→21:59)
[2016-12-24] MEDS: SEVELAMER CARBONATE 800 MG TAB PO SCH ×6 (12:03→18:00)
[2016-12-24] MEDS: cloNIDine HCL 0.2 MG TAB PO SCH ×4 (12:03→21:59)
[2016-12-24] MEDS: ASPIRIN EC 81 MG TABEC PO SCH ×2 (12:03)
[2016-12-24] MEDS: CYANOCOBALAMIN 1,000 MCG TAB PO SCH ×2 (12:03)
[2016-12-24] MEDS: LANSOPRAZOLE SOLUTAB 30 MG TAB TUBE SCH ×2 (12:03)
[2016-12-24] MEDS: CARVEDILOL 12.5 MG TAB PO SCH ×4 (12:03→21:59)
[2016-12-24] MEDS ORDERED: HALOPERIDOL LACTATE 5 MG/ML AMP IV PRN ×2 (12:15)
--- NOTE | 2016-12-24 12:22 | HHI.CCPN ---
Subjective Remarks/Hospital Course 56-year-old female with a medical history significant for end-stage renal disease on hemodialysis, diabetes mellitus, medical noncompliance who reportedly missed hemodialysis session. Patient is having difficulty waking up and was combative at home as well as confused. She was found on the floor with a blanket on and sleeping by her . EMS was called and per documentation the house wasn't very poor hygienic condition. Patient was covered with stool as well. She was noted to have an O2 sat of 94% on room air. 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 She was brought to the ER and was noted to have minimal respiratory distress and was very combative. She was noted to have a potassium of 7.9. She underwent a head CT however received some Versed for the scan and subsequently became very lethargic and was intubated emergently and placed on mechanical ventilation by ER physician. She also had a central line placed in the left subclavian vein by Dr. Rodriguez in the ER as she had extremely poor vascular access and was subsequently placed on propofol for sedation. Patient was initially accepted by hospitalist service however subsequently critical care medicine was contacted and patient was accepted for admission by critical care medicine service. I evaluated the patient in the ER earlier and at that time she was sedated with propofol, orally intubated on mechanical ventilation. Nephrology was already contacted by ER physician and is arranging hemodialysis. SUBJ 12/23/16: Tolerating CPAP, 11/27. Off sedation, Following commands. HD yesterday with 3.5L removed. Check CXR today, possible extubation if pulmonary edema improved 12/24: Patient was extubated yesterday but intermittently agitated. Follows commands and knows where she is but did not know the date, pulls dialysis access. Seen by Dr. Toledo neurology. Started on Keppra for possible seizure Objective Vital Signs Date Time Temp Pulse Resp B/P (MAP) Pulse Ox O2 Delivery O2 Flow Rate FiO2 12/24/16 10:00 72 12/24/16 08:54 95 Nasal Cannula 4.00 12/24/16 08:00 98.5 34 147/77 (100) 12/23/16 10:22 35 Intake and Output 12/24/16 12/24/16 12/25/16 08:00 16:00 00:00 Intake Total 480 ml Output Total 0 ml 2500 ml Balance 480 ml -2500 ml Result Diagram: 12/23/16 0300 12/23/16 1045 Imaging Last Impressions Chest X-Ray 12/22/16 0904 Signed Impressions: Service Date/Time: Thursday, December 22, 2016 09:53 - CONCLUSION: Moderate congestive failure similar to what was seen on 07/08/16. Art Palacios MD FACR Head CT 12/22/16 0000 Signed Impressions: Service Date/Time: Thursday, December 22, 2016 11:03 - CONCLUSION: Old ischemic changes left parietal occipital region, right basalganglia Negative for acute process. Art Palacios MD FACR Objective Remarks HEENT: Pallor present, no icterus, tongue/ mucosa moist Neck: No JVD Chest/Pulm: on mech vent, equal air entry bilaterally, mild wheezing and basilar crackles CVS: S1-S2 regular, no murmur GI/abdomen: soft, nontender, bowel sounds sluggish Extremities: warm bilaterally, no edema Neuro: Alert awake oriented to person and place map oriented to time. Intermittently delirious A/P Assessment and Plan 56-year-old female with: Encephalopathy: ? Hypertensive encephalopathy versus metabolic - possible uremia versus seizure. Delirium Possible seizure Acute respiratory failure-resolved Pulmonary edema Hypertensive emergency Hyperkalemia ESRD on hemodialysis Diabetes Hypertension Medical Noncompliance Plan: Neuro: - Encephalopathy is multifactorial - EEG-Left temporal sharps Neurology Dr. Toledo-started on Keppra - Head CT negative for bleed. Shows old left parietal stroke - Haldol when necessary for agitation/Delirium with seizure precautions Cardiovascular: - Nicardipine drip PRN for hypertensive emergency. Hydralazine when necessary. - Continue clonidine, coreg, Procardia XL - S/p HD with 3/5 L removed Pulmonary: - Extubated 12/23 - DuoNeb every 6 hours scheduled and when necessary GI/liver: - Renal diet Renal/: - Strict intake output, monitor and replete electrolytes, follow BUN/ creatinine. - Emergent hemodialysis yesterday per nephrology for hyperkalemia. ID: - Watch for fever. Hold off on antibiotics at this time. Blood cultures sent. F/u sputum for Gram stain and cultures. Heme: - Follow CBC Endocrine: - SSI for glycemic control. Hold glyburide Prophylaxis: - PPI/SCDs/subcutaneous heparin D/w bedside RN Level 3 Remains critical but stable, delirium complicating care. Started on Keppra for seizures by Dr. Mccormick. I Have placed on Haldol when necessary for agitation/ delirium Deja Macedo MD Dec 24, 2016 12:22
[2016-12-24 13:00] LABS: ALBUMIN 2.9 GM/DL (3.4-5.0); ALKALINE PHOSPHATASE 53 U/L (45-117); ALT (GPT) 16 U/L (10-53); AST (GOT) 29 U/L (15-37); BICARBONATE 32.9 MEQ/L (21.0-32.0); BLOOD UREA NITROGEN 20 MG/DL (7-18); CALCIUM 8.6 MG/DL (8.5-10.1); CHLORIDE 96 MEQ/L (98-107); CREATININE 4.08 MG/DL (0.50-1.00); GLOMERULAR FILTRATION RATE 11 ML/MIN (>89); GLUCOSE,RANDOM 152 MG/DL (74-106); SODIUM (NA) 138 MEQ/L (136-145); TOTAL BILIRUBIN ADULT 0.5 MG/DL (0.2-1.0); TOTAL PROTEIN 7.3 GM/DL (6.4-8.2)
--- NOTE | 2016-12-24 14:35 | HHI.NPPN ---
Subjective History of Present Illness 56 year old female with AMS Esrd Hyperkalemia Additional Remarks tired Review of Systems General Constitutional: Fatigue Objective Data Data 12/24/16 12/25/16 19:00 07:00 Output Total 2500 ml Balance -2500 ml Hemodialysis 2500 ml Vital Signs Date Time Temp Pulse Resp B/P (MAP) Pulse Ox O2 Delivery O2 Flow Rate FiO2 12/24/16 10:00 72 12/24/16 08:54 95 Nasal Cannula 4.00 12/24/16 08:00 98.5 72 34 147/77 (100) 99 12/24/16 08:00 73 12/24/16 06:00 68 12/24/16 04:00 98.1 70 25 127/64 (85) 90 12/24/16 04:00 70 12/24/16 02:00 78 12/24/16 00:00 81 12/24/16 00:00 81 27 153/85 (107) 95 12/23/16 22:00 86 12/23/16 21:15 96 Nasal Cannula 4.00 12/23/16 20:06 98.7 85 32 156/70 (98) 92 12/23/16 20:00 85 12/23/16 18:00 76 12/23/16 16:00 153/64 (93) 12/23/16 16:00 76 12/23/16 16:00 99.1 80 28 97 -: 12/23/16 0300 12/24/16 1200 Physical Exam General Appearance: Pale Neck Neck Exam: Neck Supple Pulmonary Resp Exam: Rhonchi, Decreased Bases Cardiology CV Exam: Regular Gastrointestinal/Abdomen GI Exam: Soft, Bowel Sounds Present Extremeties Extremities Exam: No Edema Assessment/Plan Problem List: (1) End stage renal disease on dialysis ICD Codes: N18.6 - End stage renal disease; Z99.2 - Dependence on renal dialysis Status: Acute Plan: On hemodialysis. done earlier 2.5 L off K 3.5 now poor compliance with dialysis Continue to monitor (2) Diabetes mellitus ICD Codes: E11.9 - Type 2 diabetes mellitus without complications Status: Chronic Plan: Continue to monitor blood sugars (3) Hypertension ICD Codes: I10 - Essential (primary) hypertension Status: Chronic Plan: Monitor in the hospital (4) Non-compliance ICD Codes: Z91.19 - Patient's noncompliance with other medical treatment and regimen Status: Chronic (5) Congestive heart disease ICD Codes: I50.9 - Heart failure, unspecified Status: Acute Plan: Noncompliance lead to fluid accumulation and congestive heart failure. Hemodialysis is in progress Problem Qualifiers (1) Diabetes mellitus: (2) Congestive heart disease: Qualified Codes: I50.9 - Heart failure, unspecified Sylvain Freedman MD Dec 24, 2016 14:35
[2016-12-24] MEDS: HALOPERIDOL LACTATE 5 MG/ML AMP IV PRN ×2 (18:47)
[2016-12-25] VITALS (15 sets, daily range): BP systolic 125–160; BP diastolic 72–96; PULSE 57–91; RESP 14–23; TEMP 97.8–98.5; O2SAT 88–97
[2016-12-25] MEDS: HALOPERIDOL LACTATE 5 MG/ML AMP IV PRN ×2 (01:48)
[2016-12-25] MEDS: CHLORHEXIDINE GLUCONATE 2 % 1 PACK (2 CLOTHS)(taper/protocol) TOPICAL SCH ×2 (01:49)
[2016-12-25] MEDS: RESP: ALBUTEROL 2.5 MG/IPRATROPIUM 0.5 MG NEB (SCH) NEB ×8 (03:27→21:54)
[2016-12-25] MEDS: INSULIN NovoLIN REGULAR SUPPLEMENTAL SCALE SQ SCH ×10 (06:00→23:27)
[2016-12-25] MEDS: CHLORHEXIDINE 0.12% (ORAL KIT) 15 ML CUP MT SCH ×4 (08:00→19:49)
[2016-12-25] MEDS: ASPIRIN EC 81 MG TABEC PO SCH ×2 (08:57)
[2016-12-25] MEDS: cloNIDine HCL 0.2 MG TAB PO SCH ×4 (08:57→19:52)
[2016-12-25] MEDS: LANSOPRAZOLE SOLUTAB 30 MG TAB TUBE SCH ×2 (08:57)
[2016-12-25] MEDS: NIFEdipine 60 MG SUSTAINED RELEASE TAB PO SCH ×4 (08:57→19:52)
[2016-12-25] MEDS: CARVEDILOL 12.5 MG TAB PO SCH ×4 (08:57→19:52)
[2016-12-25] MEDS: SEVELAMER CARBONATE 800 MG TAB PO SCH ×6 (08:58→17:55)
[2016-12-25] MEDS: HEPARIN SODIUM - SQ 10,000 UNITS/ML VIAL SQ SCH ×4 (08:58→19:53)
[2016-12-25] MEDS: CYANOCOBALAMIN 1,000 MCG TAB PO SCH ×2 (08:58)
[2016-12-25] MEDS: SODIUM CHLORIDE 0.9% FLUSH 10 ML FLUSH IV FLUSH SCH ×4 (08:59→19:52)
[2016-12-25] MEDS: levETIRAcetam INJ 500 MG in SODIUM CHLORIDE 0.9% INJ 100 ML IV SCH ×8 (09:00→19:51)
--- NOTE | 2016-12-25 12:31 | HHI.NPPN ---
Subjective History of Present Illness 56 year old female with AMS Esrd Hyperkalemia Additional Remarks tired Review of Systems General Constitutional: Fatigue Objective Data Data Vital Signs Date Time Temp Pulse Resp B/P (MAP) Pulse Ox O2 Delivery O2 Flow Rate FiO2 12/25/16 10:00 67 12/25/16 08:40 90 21 12/25/16 08:00 57 12/25/16 08:00 98.4 57 14 154/81 (105) 94 12/25/16 06:00 58 12/25/16 04:00 59 12/25/16 04:00 98.5 59 16 159/84 (109) 96 12/25/16 02:00 58 12/25/16 00:00 98.4 60 19 125/88 (100) 88 12/25/16 00:00 60 12/24/16 22:00 61 12/24/16 20:00 65 12/24/16 20:00 98.1 65 27 137/79 (98) 12/24/16 18:00 66 12/24/16 16:00 98.5 65 30 112/65 (81) 94 12/24/16 16:00 65 12/24/16 14:00 68 -: 12/23/16 0300 12/24/16 1200 Physical Exam General Appearance: Pale Neck Neck Exam: Neck Supple Pulmonary Resp Exam: Rhonchi, Decreased Bases Cardiology CV Exam: Regular Gastrointestinal/Abdomen GI Exam: Soft, Bowel Sounds Present Extremeties Extremities Exam: No Edema Assessment/Plan Problem List: (1) End stage renal disease on dialysis ICD Codes: N18.6 - End stage renal disease; Z99.2 - Dependence on renal dialysis Status: Acute Plan: On hemodialysis. HD yesterday doing well poor compliance with dialysis MWF schedule Continue to monitor (2) Diabetes mellitus ICD Codes: E11.9 - Type 2 diabetes mellitus without complications Status: Chronic Plan: Continue to monitor blood sugars (3) Hypertension ICD Codes: I10 - Essential (primary) hypertension Status: Chronic Plan: Monitor in the hospital (4) Non-compliance ICD Codes: Z91.19 - Patient's noncompliance with other medical treatment and regimen Status: Chronic (5) Congestive heart disease ICD Codes: I50.9 - Heart failure, unspecified Status: Acute Plan: Noncompliance lead to fluid accumulation and congestive heart failure. Hemodialysis is in progress Problem Qualifiers (1) Diabetes mellitus: (2) Congestive heart disease: Qualified Codes: I50.9 - Heart failure, unspecified Sylvain Freedman MD Dec 25, 2016 12:31
--- NOTE | 2016-12-25 12:50 | HHI.HCPN ---
Reason for visit a. To assist with evaluation and management of symptoms including: dyspnea, encephalopathy b. To assist medical decision maker(s) with: better understanding of current medical conditions; weighing benefits/burdens of medical treatment options; making medical treatment decisions. Subjective/Interval History Pt seen today to follow up on comfort , goals . Stable, s/p extubation 12/23. tolerating NC. BC from 12/22 negative to date. s/ p neurology evaluation-- neurology indicates encephalopathy likley 2/2 to uremia , metabolic. Some question of underlying seizure started on Keppra. Nsg indicates pt still confused, though generally cooperative. She apparently tried to get out of bed unassisted last night. Pt seen in room, dual visit s Ankita WOLF. Pt alert, finishing lunch, appears to have eaten 100%. Denies pain, sob, or any other complaints. Good appetite. She is oriented to person, hospital, confused to date/month. When asked why she is in hospital she says because she missed dialysis. She tells me she is well enough now and wants to return home today or tomorrow. Attempt to explore pt recent hx/hospitalizations etc-- She has poor insight otherwise into her illness/trajectory. She tells me she wants to go home to her . She states she needs him and he needs her. Explore who she would trust to make decisions for her in an emergency she indicates her . Following exam call to pt , he is on other line, tells me he will call back. Of note the patient has had several hospital admissions this year per review of EMR: *08/29/16 - 08/30/16=renal failure, hyperkalemia, pancreatitis; at that time she presented having missed dialysis, she had some confusion and was a poor historian. *06/19/16- 06/21/16 = pancreatitis, abdominal pain; noted to have hypertension and not following recommended medications. Also previously counseled to undergo EGD colonoscopy for prior anemia/GI issues for which she refused. At admission she did undergo EGD with biopsy and colonoscopy findings of gastritis , duodenal ulcer and poor colon prep. Recommended to repeat in 2-3 months. bx negative for H. pylori,+ gastritis. She was discharged home with home health. There was some concern about the patient's home living situation at that time and patient and spouse ability to care for themselves however they did not want to be placed anywhere due to not wanting to lose their dogs. Spouse was also apparently hospitalized at the same time. *06/16/16- 06/18/16= presented for blood pressure check, also reported her was ill(he apparently has complicated medical history). She was a poor historian. Severe anemia hemoglobin 6.7/hematocrit 20.1. Systolic BP 250 at presentation. She had been seen earlier in May for hemoglobin of 4 but apparently refused workup and did not adhere to recommended treatments. Patient spouse in the hospital, some concerns about her living conditions. 05/24/16- 05/31/69 = severe anemia, AMS, melena; during hemodialysis she had altered mental status she presented to the ED with hemoglobin 4.3. She also had coffee-ground emesis. She repeatedly refused GI endoscopic evaluation. Head CT 05/24/16 Area of decreased density high in the left parieto-occipital region. Patient refusing MRI. + DVT distal basilic vein. Troponin elevated though patient not a candidate for anticoagulation due to GI bleed. Palliative care consulted this admission to assist with clarification of goals of treatment. At that time patient expressing aggressive goals however refusing workup and requesting discharge. 04/08/16- 04/09/69 = hypertensive emergency, ESRD; pt at that time noted to not comply with recommended dialysis/renal failure treatment plans including fluid restrictions, dietary restrictions, + hypertension; reported to not follow with a primary care provider. severe hypertension to 247/129 and fluid overload, and nonadherence to dialysis and fluid restrictions. Advance Directives Living Will: Never completed Health Care Surrogate: Never completed Durable Power of Padded Box Sewer: Never completed Objective Vital Signs Date Time Temp Pulse Resp B/P (MAP) Pulse Ox O2 Delivery O2 Flow Rate FiO2 12/25/16 10:00 67 12/25/16 08:40 90 21 12/25/16 08:00 57 12/25/16 08:00 98.4 57 14 154/81 (105) 94 12/25/16 06:00 58 12/25/16 04:00 59 12/25/16 04:00 98.5 59 16 159/84 (109) 96 12/25/16 02:00 58 12/25/16 00:00 98.4 60 19 125/88 (100) 88 12/25/16 00:00 60 12/24/16 22:00 61 12/24/16 20:00 65 12/24/16 20:00 98.1 65 27 137/79 (98) 12/24/16 18:00 66 12/24/16 16:00 98.5 65 30 112/65 (81) 94 12/24/16 16:00 65 12/24/16 14:00 68 Intake & Output 12/25/16 12/25/16 07:00 19:00 Intake Total 345 ml Output Total 1 ml Balance 344 ml Intake Oral 240 ml IV Total 105 ml Stool Total 1 ml # Voids 3 Physical Exam CONSTITUTIONAL/GENERAL: This is obese patient, has removed NC , no distress TUBES/LINES/DRAINS: Peripheral IV right thumb, central line left subclavian, NC O2- assisted her to reapply SKIN: No jaundice, rashes, or lesions. No wounds seen anteriorly. Skin warm, dry. NECK: Trachea midline. Supple, nontender. No palpable thyroid enlargement or nodularity. CARDIOVASCULAR: Regular rate and rhythm without murmur. Peripheral pulses symmetric. RESPIRATORY/CHEST: Symmetric, unlabored respirations on NC. Breath sounds clear , equal bilaterally. GASTROINTESTINAL: Abdomen soft, obese, nondistended. No hepato-splenomegaly, or palpable masses. Bowel sounds present. MUSCULOSKELETAL: Extremities without clubbing, cyanosis, or edema. No joint effusion noted. Lower Extremities thin in comparison to body habitus. NEUROLOGICAL: awake, Oriented to self//hospital.otherwise insight is poor. Moves all 4 extremities, follows some commands. Repetitive speech. PSYCHIATRIC: No obvious anxiety/depression- limited assessment. . Diagnostic Tests Laboratory Laboratory Tests Test 12/22/16 12:50 12/22/16 14:25 12/22/16 19:51 12/22/16 20:40 Blood Gas Puncture Site RT RADIAL Blood Gas Patient Temperature 98.6 Blood Gas HCO3 25 mmol/L (22-26) Blood Gas Base Excess 0.0 mmol/L (-2-2) Blood Gas Oxygen Saturation 98 % (90-100) Arterial Blood pH 7.35 (7.380-7.420) Arterial Blood Partial Pressure CO2 46 mmHg (38-42) Arterial Blood Partial Pressure O2 422 mmHG (61-120) Arterial Blood Oxygen Content 14.2 Vol % (12.0-20.0) Arterial Blood Carboxyhemoglobin 1.3 % (0-4) Arterial Blood Methemoglobin 0.8 % (0-2) Blood Gas Hemoglobin 9.5 G/DL (12.0-16.0) Oxygen Delivery Device VENTILATOR Blood Gas Ventilator Setting PRVC/AC Blood Gas Inspired Oxygen 100 % Potassium Level 7.0 MEQ/L (3.5-5.1) 4.6 MEQ/L (3.5-5.1) Blood Urea Nitrogen 49 MG/DL (7-18) Creatinine 7.11 MG/DL (0.50-1.00) Random Glucose 57 MG/DL (74-106) Calcium Level 8.8 MG/DL (8.5-10.1) Sodium Level 136 MEQ/L (136-145) Chloride Level 97 MEQ/L (98-107) Carbon Dioxide Level 31.8 MEQ/L (21.0-32.0) Anion Gap 7 MEQ/L (5-15) Estimat Glomerular Filtration Rate 6 ML/MIN (>89) Nasal Screen MRSA (PCR) MRSA NOT DETECTED (NOT Test 12/23/16 03:00 12/23/16 10:45 12/24/16 12:00 White Blood Count 9.7 TH/MM3 (4.0-11.0) Red Blood Count 2.76 MIL/MM3 (4.00-5.30) Hemoglobin 8.6 GM/DL (11.6-15.3) Hematocrit 26.2 % (35.0-46.0) Mean Corpuscular Volume 95.1 FL (80.0-100.0) Mean Corpuscular Hemoglobin 31.1 PG (27.0-34.0) Mean Corpuscular Hemoglobin Concent 32.7 % (32.0-36.0) Red Cell Distribution Width 15.4 % (11.6-17.2) Platelet Count 254 TH/MM3 (150-450) Mean Platelet Volume 8.0 FL (7.0-11.0) Neutrophils (%) (Auto) 80.8 % (16.0-70.0) Lymphocytes (%) (Auto) 8.9 % (9.0-44.0) Monocytes (%) (Auto) 6.7 % (0.0-8.0) Eosinophils (%) (Auto) 2.9 % (0.0-4.0) Basophils (%) (Auto) 0.7 % (0.0-2.0) Neutrophils # (Auto) 7.9 TH/MM3 (1.8-7.7) Lymphocytes # (Auto) 0.9 TH/MM3 (1.0-4.8) Monocytes # (Auto) 0.7 TH/MM3 (0-0.9) Eosinophils # (Auto) 0.3 TH/MM3 (0-0.4) Basophils # (Auto) 0.1 TH/MM3 (0-0.2) CBC Comment DIFF FINAL Differential Comment Blood Urea Nitrogen 51 MG/DL (7-18) 59 MG/DL (7-18) 20 MG/DL (7-18) Creatinine 7.66 MG/DL (0.50-1.00) 8.07 MG/DL (0.50-1.00) 4.08 MG/DL (0.50-1.00) Random Glucose 93 MG/DL (74-106) 135 MG/DL (74-106) 152 MG/DL (74-106) Total Protein 7.0 GM/DL (6.4-8.2) 7.0 GM/DL (6.4-8.2) 7.3 GM/DL (6.4-8.2) Albumin 2.8 GM/DL (3.4-5.0) 2.9 GM/DL (3.4-5.0) 2.9 GM/DL (3.4-5.0) Calcium Level 8.9 MG/DL (8.5-10.1) 9.0 MG/DL (8.5-10.1) 8.6 MG/DL (8.5-10.1) Alkaline Phosphatase 56 U/L (45-117) 54 U/L (45-117) 53 U/L (45-117) Aspartate Amino Transf (AST/SGOT) 18 U/L (15-37) 24 U/L (15-37) 29 U/L (15-37) Alanine Aminotransferase (ALT/SGPT) 13 U/L (10-53) 14 U/L (10-53) 16 U/L (10-53) Total Bilirubin 0.4 MG/DL (0.2-1.0) 0.5 MG/DL (0.2-1.0) 0.5 MG/DL (0.2-1.0) Sodium Level 136 MEQ/L (136-145) 135 MEQ/L (136-145) 138 MEQ/L (136-145) Potassium Level 5.6 MEQ/L (3.5-5.1) 5.6 MEQ/L (3.5-5.1) 3.5 MEQ/L (3.5-5.1) Chloride Level 96 MEQ/L (98-107) 96 MEQ/L (98-107) 96 MEQ/L (98-107) Carbon Dioxide Level 30.6 MEQ/L (21.0-32.0) 28.5 MEQ/L (21.0-32.0) 32.9 MEQ/L (21.0-32.0) Anion Gap 9 MEQ/L (5-15) 11 MEQ/L (5-15) 9 MEQ/L (5-15) Estimat Glomerular Filtration Rate 6 ML/MIN (>89) 5 ML/MIN (>89) 11 ML/MIN (>89) Result Diagram: 12/23/16 0300 12/24/16 1200 Imaging Last Impressions Chest X-Ray 12/23/16 0000 Signed Impressions: Service Date/Time: Friday, December 23, 2016 10:43 - CONCLUSION: 1. Interval development of left pleural effusion. 2. Stable indistinctness of the bronchopulmonary markings without focal areas of consolidation. Navneet Valentino MD Head CT 12/22/16 0000 Signed Impressions: Service Date/Time: Thursday, December 22, 2016 11:03 - CONCLUSION: Old ischemic changes left parietal occipital region, right basalganglia Negative for acute process. Art Palacios MD FACR Procedures 12/22/16- intubated 12/22/16 -central line left subclavian. . Assessment and Plan Disease Oriented Problem List: (1) Altered mental status (2) Diabetes mellitus (3) Hypertension (4) End stage renal disease on dialysis (5) Congestive heart disease (6) Respiratory failure (7) Elevated troponin Symptom Scale: (1) Encephalopathy 0-10 Scale: Unable to quantify (2) Dyspnea 0-10 Scale: Unable to quantify Pertinent Non-Medical Issues Psychosocial:Per EMR: to her for about 10 years. Originally from [place], moved to [place] earlier in the past year to be in a warmer climate. No children, though her Bandar does have one daughter in [place]. Patient apparently with complicated/complex medical conditions status post recent leg amputation. Weighted high school education. Neither she nor her have been able to work recently. Spiritual: Adventism, no particular affiliation Legal:Patient is now intubated and sedated and unable to participate in decision -making. Prior visits note that she is a poor historian not known if she is capacitated or if she will regain capacity. Does not appear she has advanced directives or HCS, per [place] statutes her would be appropriate legal proxy. Ethical issues impacting care: No ethical issues identified at this time. Important Contacts Bandar Patel () [phone] / [facility] [phone] sister [phone] . Prognosis This patient was admitted for AMS, required medication to complete imaging for workup, she is now intubated and sedated. She has end-stage renal disease requiring hemodialysis, she has had recent hospitalizations secondary to complications of this. She will likely continue to experience complications and setbacks and further decline secondary to her chronic medical conditions, based on her history. She may be appropriate for hospice if goals compatible and she no longer desires aggressive interventions for ESRD. Code Status: Full Code Plan * Legal decision maker: Patient is now intubated and sedated and unable to participate in decision-making. Prior visits note that she is a poor historian not known if she was capacitated or if she will regain capacity. Does not appear she has advanced directives or HCS, per [place] statutes her would be appropriate legal proxy.As per later conversation with patient ; they do not have advanced directives he would be appropriate legal proxy. Patient extubated today, she is not oriented, and insightful enough to complete advanced directives or health care surrogate designation however will continue to attempt to facilitate this during hospital course. * Goals: During initial consultation spoke with discussed conditions and overall prognosis at length, he expresses aggressive goals that the patient would want to continue whatever treatments indicated to help her live and recover, including full code. 12/23 patient (proxy) continues to express aggressive goals he is hopeful she can improve. 12/25/16 will call be back later. Goals have been aggressive. * CODE STATUS: Full * SYMPTOMS: --Encephalopathy/AMS-? 2/2 ESRD. ? prior hx CVA. Baseline not known though prior hospital visits describe her as a poor historian. slowly improving. --Dyspnea- intubated 12/22/16 for inability to protect airway; tolerated CPAP , medically extubated 12/23, cont to tolerate NC. tolerating oral diet. * Palliative care will continue to follow during hospital course as condition evolves, to assist patient/decision-maker with understanding of medical conditions, weighing benefits/burdens of treatment options, for clarification of goals of treatment. Additionally will assist with any symptoms of palliative concern . Time Spent Total Floor Time (mins): 20 (chart review, PE, call to spouse) Attestation To help prompt me to consider important information that might be impacting today's encounter and assessment, information from prior notes written by myself or my colleagues may have been "brought forward" into today's note. My signature on this note, however, is an attestation that I personally performed the exam, history, and/or decision-making noted today, and, unless otherwise indicated, the interactions with patient, family, and staff as well as the review of records all occurred today. I also attest that the listed assessment and stated plan reflect my best clinical judgment today based on the combination of historical information, prior notes, and today's exam/ interactions. When time spent is documented, it refers only to time spent today by the signer, or if indicated, combined time spent today by collaborating physician/nurse practitioner. Alissa Arellano Dec 25, 2016 12:50
--- NOTE | 2016-12-25 15:05 | HHI.CCPN ---
Subjective Remarks/Hospital Course 56-year-old female with a medical history significant for end-stage renal disease on hemodialysis, diabetes mellitus, medical noncompliance who reportedly missed hemodialysis session. Patient is having difficulty waking up and was combative at home as well as confused. She was found on the floor with a blanket on and sleeping by her . EMS was called and per documentation the house wasn't very poor hygienic condition. Patient was covered with stool as well. She was noted to have an O2 sat of 94% on room air. She was confused and did not know who her industrial hire sales assistant was on inquiry per documentation and did not know when she was last dialyzed. She was brought to the ER and was noted to have minimal respiratory distress and was very combative. She was noted to have a potassium of 7.9. She underwent a head CT however received some Versed for the scan and subsequently became very lethargic and was intubated emergently and placed on mechanical ventilation by ER physician. She also had a central line placed in the left subclavian vein by Dr. Rodriguez in the ER as she had extremely poor vascular access and was subsequently placed on propofol for sedation. Patient was initially accepted by hospitalist service however subsequently critical care medicine was contacted and patient was accepted for admission by critical care medicine service. I evaluated the patient in the ER earlier and at that time she was sedated with propofol, orally intubated on mechanical ventilation. Nephrology was already contacted by ER physician and is arranging hemodialysis. SUBJ 12/23/16: Tolerating CPAP, 11/27. Off sedation, Following commands. HD yesterday with 3.5L removed. Check CXR today, possible extubation if pulmonary edema improved 12/24: Patient was extubated yesterday but intermittently agitated. Follows commands and knows where she is but did not know the date, pulls dialysis access. Seen by Dr. Toledo neurology. Started on Keppra for possible seizure 12/25: Appears better today, oriented to person and place. No clinical seizures. Remains on Keppra. Objective Vital Signs Date Time Temp Pulse Resp B/P (MAP) Pulse Ox O2 Delivery O2 Flow Rate FiO2 12/25/16 12:00 61 12/25/16 12:00 97.9 23 138/72 (94) 97 12/25/16 08:40 21 12/24/16 08:54 Nasal Cannula 4.00 Intake and Output 12/25/16 12/25/16 12/26/16 08:00 16:00 00:00 Intake Total 345 ml Output Total 1 ml Balance 344 ml Result Diagram: 12/23/16 0300 12/24/16 1200 Imaging Last Impressions Chest X-Ray 12/22/16 0904 Signed Impressions: Service Date/Time: Thursday, December 22, 2016 09:53 - CONCLUSION: Moderate congestive failure similar to what was seen on 07/08/16. Art Palacios MD FACR Head CT 12/22/16 0000 Signed Impressions: Service Date/Time: Thursday, December 22, 2016 11:03 - CONCLUSION: Old ischemic changes left parietal occipital region, right basalganglia Negative for acute process. Art Palacios MD FACR Objective Remarks HEENT: Pallor present, no icterus, tongue/ mucosa moist Neck: No JVD Chest/Pulm: Equal air entry bilaterally, clear to auscultation CVS: S1-S2 regular, no murmur GI/abdomen: soft, nontender, bowel sounds sluggish Extremities: warm bilaterally, no edema Neuro: Alert awake oriented to person and place. Not delirious today. No focal deficits Urinary Catheter: Yes Assessment to: Continue A/P Assessment and Plan 56-year-old female with: Encephalopathy: ? Hypertensive encephalopathy versus metabolic - possible uremia versus seizure. Delirium-resolving Possible seizure Acute respiratory failure-resolved Pulmonary edema Hypertensive emergency Hyperkalemia-resolved Probable COPD ESRD on hemodialysis Diabetes Hypertension Medical Noncompliance Plan: Neuro: - Encephalopathy is multifactorial, improving - EEG-Left temporal sharps Neurology Dr. Toledo-on [facility] - Head CT negative for bleed. Shows old left parietal stroke - Haldol when necessary for agitation/Delirium with seizure precautions Cardiovascular: - Off Nicardipine drip PRN for hypertensive emergency. Hydralazine when necessary. - Continue clonidine, coreg, Procardia XL Pulmonary: - Extubated 12/23 - DuoNeb every 6 hours scheduled and when necessary GI/liver: - Renal, ADA diet Renal/: - Strict intake output, monitor and replete electrolytes, follow BUN/ creatinine. - HD per nephrology ID: - Watch for fever. Hold off on antibiotics at this time. Cultures negative to date Heme: - Follow CBC Endocrine: - SSI for glycemic control. Hold glyburide Prophylaxis: - PPI/SCDs/subcutaneous heparin D/w bedside RN Level 2 Hospitalist to assume care in 12/26/16. Transfer to [facility] with telemetry Deja Macedo MD Dec 25, 2016 15:05
[2016-12-26] VITALS: PULSE 62
[2016-12-26] MEDS: CHLORHEXIDINE GLUCONATE 2 % 1 PACK (2 CLOTHS)(taper/protocol) TOPICAL SCH ×2 (02:55)
[2016-12-26] MEDS: CHLORHEXIDINE GLUCONATE 2 % 1 PACK (2 CLOTHS) TOP SCH ×2 (02:56)
[2016-12-26] MEDS: HALOPERIDOL LACTATE 5 MG/ML AMP IV PRN ×4 (03:10→12:43)
[2016-12-26 04:00] VITALS: BP 134/15; PULSE 60; RESP 20; TEMP 99.1; O2SAT 92
[2016-12-26] MEDS: RESP: ALBUTEROL 2.5 MG/IPRATROPIUM 0.5 MG NEB (SCH) NEB ×4 (04:30→10:00)
[2016-12-26] MEDS: INSULIN NovoLIN REGULAR SUPPLEMENTAL SCALE SQ SCH ×4 (06:00→12:45)
[2016-12-26 08:00] VITALS: BP 168/83; PULSE 59; PULSE 64; RESP 20; TEMP 98.3; O2SAT 93
[2016-12-26] MEDS: CHLORHEXIDINE 0.12% (ORAL KIT) 15 ML CUP MT SCH ×2 (08:00)
[2016-12-26] MEDS: EPOETIN ALFA 10,000 UNITS/ML VIAL IV PUSH PRN ×2 (11:24)
--- NOTE | 2016-12-26 11:43 | HHI.NPPN ---
Subjective History of Present Illness 56 year old female with AMS Esrd Hyperkalemia Additional Remarks tired Review of Systems General Constitutional: Fatigue Objective Data Data 12/26/16 12/27/16 19:00 07:00 Output Total 3000 ml Balance -3000 ml Hemodialysis 3000 ml Vital Signs Date Time Temp Pulse Resp B/P (MAP) Pulse Ox O2 Delivery O2 Flow Rate FiO2 12/26/16 04:00 99.1 60 20 134/15 (54) 92 12/26/16 00:00 62 12/25/16 23:15 97.8 60 20 146/78 (100) 96 12/25/16 22:00 63 12/25/16 21:54 93 21 12/25/16 20:00 97.9 65 21 160/85 (110) 96 12/25/16 20:00 65 12/25/16 18:00 65 12/25/16 16:00 91 12/25/16 16:00 97.9 62 22 158/96 (116) 89 12/25/16 14:00 61 12/25/16 12:00 61 12/25/16 12:00 97.9 61 23 138/72 (94) 97 -: 12/23/16 0300 12/24/16 1200 Physical Exam General Appearance: Pale Neck Neck Exam: Neck Supple Pulmonary Resp Exam: Rhonchi, Decreased Bases Cardiology CV Exam: Regular Gastrointestinal/Abdomen GI Exam: Soft, Bowel Sounds Present Extremeties Extremities Exam: No Edema Assessment/Plan Problem List: (1) End stage renal disease on dialysis ICD Codes: N18.6 - End stage renal disease; Z99.2 - Dependence on renal dialysis Status: Acute Plan: On hemodialysis. HD yesterday doing well poor compliance with dialysis MWF schedule seen during dialysis UF 3L as tolerates Continue to monitor (2) Diabetes mellitus ICD Codes: E11.9 - Type 2 diabetes mellitus without complications Status: Chronic Plan: Continue to monitor blood sugars (3) Hypertension ICD Codes: I10 - Essential (primary) hypertension Status: Chronic Plan: Monitor in the hospital (4) Non-compliance ICD Codes: Z91.19 - Patient's noncompliance with other medical treatment and regimen Status: Chronic (5) Congestive heart disease ICD Codes: I50.9 - Heart failure, unspecified Status: Acute Plan: Noncompliance lead to fluid accumulation and congestive heart failure. Hemodialysis is in progress Problem Qualifiers (1) Diabetes mellitus: (2) Congestive heart disease: Qualified Codes: I50.9 - Heart failure, unspecified Sylvain Freedman MD Dec 26, 2016 11:43
--- NOTE | 2016-12-26 11:50 | HHI.DS ---
Discharge Summary Admission Date Dec 22, 2016 at 12:47 Discharge Date: Dec 26, 2016 Admitting Diagnosis ESRD, HCT dependent, congestive heart failure, respiratory distress (1) Pulmonary edema ICD Code: J81.1 - Chronic pulmonary edema Status: Acute (2) Chronic renal failure ICD Code: N18.9 - Chronic kidney disease, unspecified Status: Acute (3) Hypertensive urgency ICD Code: I16.0 - Hypertensive urgency Status: Acute (4) Diabetes mellitus ICD Code: E11.9 - Type 2 diabetes mellitus without complications Status: Chronic (5) Non-compliance ICD Code: Z91.19 - Patient's noncompliance with other medical treatment and regimen Status: Chronic (6) End stage renal disease on dialysis ICD Code: N18.6 - End stage renal disease; Z99.2 - Dependence on renal dialysis Status: Acute (7) Respiratory distress ICD Code: R06.00 - Dyspnea, unspecified Status: Acute (8) Respiratory failure ICD Code: J96.90 - Respiratory failure, unspecified, unspecified whether with hypoxia or hypercapnia Status: Acute Procedures none Brief History - From Admission History of Present Illness HPI 56-year-old female with a medical history significant for end-stage renal disease on hemodialysis, diabetes mellitus, medical noncompliance who reportedly missed hemodialysis session. Patient is having difficulty waking up and was combative at home as well as confused. She was found on the floor with a blanket on and sleeping by her . EMS was called and per documentation the house wasn't very poor hygienic condition. Patient was covered with stool as well. She was noted to have an O2 sat of 94% on room air. She was confused and did not know who her arm rest builder was on inquiry per documentation and did not know when she was last dialyzed. She was brought to the ER and was noted to have minimal respiratory distress and was very combative. She was noted to have a potassium of 7.9. She underwent a head CT however received some Versed for the scan and subsequently became very lethargic and was intubated emergently and placed on mechanical ventilation by ER physician. She also had a central line placed in the left subclavian vein by Dr. Rodriguez in the ER as she had extremely poor vascular access and was subsequently placed on propofol for sedation. Patient was initially accepted by hospitalist service however subsequently critical care medicine was contacted and patient was accepted for admission by critical care medicine service. I evaluated the patient in the ER earlier and at that time she was sedated with propofol, orally intubated on mechanical ventilation. Nephrology was already contacted by ER physician and is arranging hemodialysis. History PFSH Past Medical History Narrative Medical List of her past medical, surgical, social and family history is reviewed from the nursing note. Anemia: Yes Arthritis: No Cancer: No Cardiovascular Problems: Yes High Cholesterol: Yes Congestive Heart Failure: Yes Cerebrovascular Accident: Yes Coronary Artery Disease: Yes Diabetes: Yes Patient Takes Glucophage: No (UNKNOWN ) Dialysis: Yes Diminished Hearing: No GERD: Yes Hypertension: Yes Implanted Vascular Access Dvce: No Musculoskeletal: No Psychiatric: No Reproductive: No Respiratory: No Pancreatitis: Yes Renal Failure: Yes (on dialysis m/w/f) ?: Not : 1 Miscarriage: 1 Past Surgical History Abdominal Surgery: No Cardiac Surgery: No Ear Surgery: No Endocrine Surgery: No Eye Surgery: No Genitourinary Surgery: No Gynecologic Surgery: No Oral Surgery: No Thoracic Surgery: No Other Surgery: Yes (LT FOREARM FISTULA) Social History Alcohol Use: No Tobacco Use: No Substance Use: No Allergies-Medications Allergies-Medications (Allergen,Severity, Reaction): Coded Allergies: No Known Allergies (Unverified Allergy, Unknown, 12/22/16) Comments No known drug allergies. Reported Meds & Prescriptions Reported Meds & Active Scripts Active Protonix (Pantoprazole Sodium) 40 Mg Tab 40 Mg PO BID Coreg (Carvedilol) 12.5 Mg Tab 25 Mg PO Q12HR Clonidine (Clonidine HCl) 0.2 Mg Tab 0.2 Mg PO BID Nifedipine ER 24 HR (Nifedipine) 60 Mg Tab 60 Mg PO BID Reported Aspirin Adult Low Strength (Aspirin) 81 Mg Tabdr 81 Mg PO DAILY Vitamin B-12 (Cyanocobalamin) 1,000 Mcg Tab 1,000 Mcg PO DAILY Glyburide 5 Mg Tab 5 Mg PO DAILY Take with meals at the same time each day Renvela (Sevelamer Carbonate) 800 Mg Tab 800 Mg PO TID Take with meals Narrative Medication List of her home medications reviewed from the nursing note. CBC/BMP: 12/23/16 0300 12/24/16 1200 Significant Findings Laboratory Tests Test 12/24/16 12:00 Blood Urea Nitrogen 20 MG/DL (7-18) Creatinine 4.08 MG/DL (0.50-1.00) Random Glucose 152 MG/DL (74-106) Albumin 2.9 GM/DL (3.4-5.0) Chloride Level 96 MEQ/L (98-107) Carbon Dioxide Level 32.9 MEQ/L (21.0-32.0) Estimat Glomerular Filtration Rate 11 ML/MIN (>89) Imaging Last Impressions Chest X-Ray 12/23/16 0000 Signed Impressions: Service Date/Time: Friday, December 23, 2016 10:43 - CONCLUSION: 1. Interval development of left pleural effusion. 2. Stable indistinctness of the bronchopulmonary markings without focal areas of consolidation. Navneet Valentino MD Head CT 12/22/16 0000 Signed Impressions: Service Date/Time: Thursday, December 22, 2016 11:03 - CONCLUSION: Old ischemic changes left parietal occipital region, right basalganglia Negative for acute process. Art Palacios MD FACR PE at Discharge HEENT: Pallor present, no icterus, tongue/ mucosa moist Neck: No JVD Chest/Pulm: Equal air entry bilaterally, clear to auscultation CVS: S1-S2 regular, no murmur GI/abdomen: soft, nontender, bowel sounds normal Extremities: warm bilaterally, no edema Neuro: Alert awake oriented to person and place. Not delirious today. No focal deficits Hospital Course 56-year-old female with: Encephalopathy: ? Hypertensive encephalopathy versus metabolic - possible uremia versus seizure. Back at her baseline. Delirium-resolving Possible seizure Acute respiratory failure-resolved Pulmonary edema Hypertensive emergency Hyperkalemia-resolved Probable COPD ESRD on hemodialysis Diabetes Hypertension Medical Noncompliance Neuro: - Encephalopathy is multifactorial, improving - EEG-Left temporal sharps Neurology Dr. Toledo-on [facility] - Head CT negative for bleed. Shows old left parietal stroke - Haldol when necessary for agitation/Delirium with seizure precautions Cardiovascular: - Off Nicardipine drip PRN for hypertensive emergency. Hydralazine when necessary. - Continue clonidine, coreg, Procardia XL Pulmonary: - Extubated 12/23 - DuoNeb every 6 hours scheduled and when necessary GI/liver: - Renal, ADA diet Renal/: - Strict intake output, monitor and replete electrolytes, follow BUN/ creatinine. - HD per nephrology ID: - Watch for fever. Hold off on antibiotics at this time. Cultures negative to date Heme: - Follow CBC Endocrine: - SSI for glycemic control. Hold glyburide Prophylaxis: - PPI/SCDs/subcutaneous heparin Discussed with the patient, nurse, CM DC today , and patient declines SNF, wants home with home health. Discharged home with home health in stable condition Satting well on room air. Had dialysis prior to DC. To follow up as OP with PCP and consultants. Encouraged compliance. Pt Condition on Discharge: Stable Discharge Disposition: Disch w/ Home Health Serv Discharge Time: > 30 minutes Discharge Instructions Follow up Referrals: Nephrology - 2-3 Days PCP Follow-up - 2-3 Days SNF/[facility]/ with [facility] Continued Medications: Aspirin DR (Aspirin Adult Low Strength) 81 Mg Tabdr 81 MG PO DAILY for antiplatelet, TAB Carvedilol (Coreg) 12.5 Mg Tab 25 MG PO Q12HR, #60 TAB 1 Refill Clonidine (Clonidine) 0.2 Mg Tab 0.2 MG PO BID for Blood Pressure Management, #60 TAB 0 Refills Cyanocobalamin (Vitamin B-12) 1,000 Mcg Tab 1000 MCG PO DAILY for Nutritional Supplement, #1 BOTTLE 0 Refills Glyburide (Glyburide) 5 Mg Tab 5 MG PO DAILY for Blood Sugar Management, #30 TAB 0 Refills Take with meals at the same time each day Nifedipine ER 24 HR (Nifedipine ER 24 HR) 60 Mg Tab 60 MG PO BID for Blood Pressure Management, #60 TAB Pantoprazole (Protonix) 40 Mg Tab 40 MG PO BID for Ulcer Prevention, #60 TAB 0 Refills Sevelamer Carbonate (Renvela) 800 Mg Tab 800 MG PO TID for Control phosphorous levels, #90 TAB 0 Refills Take with meals Annabella Glaser MD Dec 26, 2016 11:50
--- NOTE | 2016-12-26 11:51 | HHI.FF ---
Face to Face Verification Diagnosis: (1) Hypertensive emergency (2) Pain (3) Severe anemia (4) Thrombosis (5) Noncompliance w/medication treatment due to intermit use ofmedication (6) ESRD (end stage renal disease) (7) Accelerated hypertension (8) Pancreatitis (9) Anemia (10) Diabetes mellitus (11) Hypertension (12) Non-compliance (13) End stage renal disease on dialysis (14) Hyperkalemia (15) Respiratory distress Physical Therapy Order: Evaluate and Treat Home Health Nursing Order: Medical education Signs/symptoms of disease process Medication education-adverse effect Nursing assessment with vital signs I have seen patient Ryanne Patel on 12/26/16. My clinical findings support the need for the requested home health care services because: Ltd mobility - disease progression Patient has SOB I certify that my clinical findings support that this patient is homebound because: Post-op weakness Annabella Glaser MD Dec 26, 2016 11:51
--- NOTE | 2016-12-26 11:58 | HHI.PR ---
Subjective Remarks Feels much tea , had HD , no fever or chills. Satting well on room air now. No sob, cp, n/v/d/c. Objective Vitals Vital Signs Date Time Temp Pulse Resp B/P (MAP) Pulse Ox O2 Delivery O2 Flow Rate FiO2 12/26/16 04:00 99.1 60 20 134/15 (54) 92 12/26/16 00:00 62 12/25/16 23:15 97.8 60 20 146/78 (100) 96 12/25/16 22:00 63 12/25/16 21:54 93 21 12/25/16 20:00 97.9 65 21 160/85 (110) 96 12/25/16 20:00 65 12/25/16 18:00 65 12/25/16 16:00 91 12/25/16 16:00 97.9 62 22 158/96 (116) 89 12/25/16 14:00 61 12/25/16 12:00 61 12/25/16 12:00 97.9 61 23 138/72 (94) 97 I/O 12/25/16 12/25/16 12/25/16 12/26/16 12/26/16 12/26/16 07:00 15:00 23:00 07:00 15:00 23:00 Intake Total 345 ml 105 ml 880 ml 360 ml Output Total 1 ml 0 ml 3000 ml Balance 344 ml 105 ml 880 ml 360 ml -3000 ml Intake Oral 240 ml 880 ml 360 ml IV Total 105 ml 105 ml Output Urine Total 0 ml Stool Total 1 ml Hemodialysis 3000 ml # Voids 3 1 Result Diagram: 12/23/16 0300 12/24/16 1200 Imaging Last Impressions Chest X-Ray 12/23/16 0000 Signed Impressions: Service Date/Time: Friday, December 23, 2016 10:43 - CONCLUSION: 1. Interval development of left pleural effusion. 2. Stable indistinctness of the bronchopulmonary markings without focal areas of consolidation. Navneet Valentino MD Head CT 12/22/16 0000 Signed Impressions: Service Date/Time: Thursday, December 22, 2016 11:03 - CONCLUSION: Old ischemic changes left parietal occipital region, right basalganglia Negative for acute process. Art Palacios MD FACR Objective Remarks HEENT: Pallor present, no icterus, tongue/ mucosa moist Neck: No JVD Chest/Pulm: Equal air entry bilaterally, clear to auscultation CVS: S1-S2 regular, no murmur GI/abdomen: soft, nontender, bowel sounds sluggish Extremities: warm bilaterally, no edema Neuro: Alert awake oriented to person and place. Not delirious today. No focal deficits A/P Assessment and Plan 56-year-old female with: Encephalopathy: ? Hypertensive encephalopathy versus metabolic - possible uremia versus seizure. Back at her baseline. Delirium-resolving Possible seizure Acute respiratory failure-resolved Pulmonary edema Hypertensive emergency Hyperkalemia-resolved Probable COPD ESRD on hemodialysis Diabetes Hypertension Medical Noncompliance Neuro: - Encephalopathy is multifactorial, improving - EEG-Left temporal sharps Neurology Dr. Toledo-on Keppra - Head CT negative for bleed. Shows old left parietal stroke - Haldol when necessary for agitation/Delirium with seizure precautions Cardiovascular: - Off Nicardipine drip PRN for hypertensive emergency. Hydralazine when necessary. - Continue clonidine, coreg, Procardia XL Pulmonary: - Extubated 12/23 - DuoNeb every 6 hours scheduled and when necessary GI/liver: - Renal, ADA diet Renal/: - Strict intake output, monitor and replete electrolytes, follow BUN/ creatinine. - HD per nephrology ID: - Watch for fever. Hold off on antibiotics at this time. Cultures negative to date Heme: - Follow CBC Endocrine: - SSI for glycemic control. Hold glyburide Prophylaxis: - PPI/SCDs/subcutaneous heparin Discussed with the patient, nurse, RADHA DC today , and patient declines SNF, wants home with home health Annabella Glaser MD Dec 26, 2016 11:58
[2016-12-26 12:00] VITALS: BP 159/77; PULSE 67; RESP 20; TEMP 98.4; O2SAT 93
[2016-12-26] MEDS: SODIUM CHLORIDE 0.9% FLUSH 10 ML FLUSH IV FLUSH SCH ×4 (12:34→12:36)
[2016-12-26] MEDS: HEPARIN SODIUM - SQ 10,000 UNITS/ML VIAL SQ SCH ×4 (12:35→12:37)
[2016-12-26] MEDS: SEVELAMER CARBONATE 800 MG TAB PO SCH ×4 (12:35→12:37)
[2016-12-26] MEDS: cloNIDine HCL 0.2 MG TAB PO SCH ×2 (12:36)
[2016-12-26] MEDS: CARVEDILOL 12.5 MG TAB PO SCH ×2 (12:37)
[2016-12-26] MEDS: ASPIRIN EC 81 MG TABEC PO SCH ×2 (12:37)
[2016-12-26] MEDS: CYANOCOBALAMIN 1,000 MCG TAB PO SCH ×2 (12:37)
[2016-12-26] MEDS: NIFEdipine 60 MG SUSTAINED RELEASE TAB PO SCH ×2 (12:37)
[2016-12-26] MEDS: LANSOPRAZOLE SOLUTAB 30 MG TAB TUBE SCH ×2 (12:38)
[2016-12-26] MEDS ORDERED: levETIRAcetam 500 MG TAB PO SCH ×2 (21:00)
== END 2016-12-26 14:00 | disposition home health service (06) | DRG 70 ==
LOC: NEPE 08:49 → NEDA 10:34 → OBSVTOIN 12:47 → HIMN 13:15 → N04B 12-25 22:46
PROVIDERS: ADMIT Hospitalist; ATTEND Hospitalist
PROC: 05H633Z Insertion of Infusion Device into Left Subclavian Vein, Percutaneous Approach (ICD-10-PCS; principal; 2016-12-22)
PROC: 5A1945Z Respiratory Ventilation, 24-96 Consecutive Hours (ICD-10-PCS; 2016-12-22)
PROC: 0BH17EZ Insertion of Endotracheal Airway into Trachea, Via Natural or Artificial Opening (ICD-10-PCS; 2016-12-22)
PROC: 0DB68ZX Excision of Stomach, Via Natural or Artificial Opening Endoscopic, Diagnostic (ICD-10-PCS; 2016-12-22)
PROC: 0DJD8ZZ Inspection of Lower Intestinal Tract, Via Natural or Artificial Opening Endoscopic (ICD-10-PCS; 2016-12-22)
PROC: 5A1D70Z Performance of Urinary Filtration, Intermittent, Less than 6 Hours Per Day (ICD-10-PCS; 2016-12-22)
DX: G93.40 Encephalopathy, unspecified (principal); J96.01 Acute respiratory failure with hypoxia; I13.2 Hypertensive heart and chronic kidney disease with heart failure and with stage 5 chronic kidney disease, or end stage renal disease; E87.0 Hyperosmolality and hypernatremia; N18.6 End stage renal disease; R56.9 Unspecified convulsions; K85.90 Acute pancreatitis without necrosis or infection, unspecified; E87.5 Hyperkalemia; K26.9 Duodenal ulcer, unspecified as acute or chronic, without hemorrhage or perforation; E11.22 Type 2 diabetes mellitus with diabetic chronic kidney disease; I16.1 Hypertensive emergency; I82.619 Acute embolism and thrombosis of superficial veins of unspecified upper extremity; I50.9 Heart failure, unspecified; Z99.2 Dependence on renal dialysis; Z91.19 Patient's noncompliance with other medical treatment and regimen; D64.9 Anemia, unspecified; E78.5 Hyperlipidemia, unspecified; G47.33 Obstructive sleep apnea (adult) (pediatric); I25.10 Atherosclerotic heart disease of native coronary artery without angina pectoris; I44.0 Atrioventricular block, first degree; J44.9 Chronic obstructive pulmonary disease, unspecified; K21.9 Gastro-esophageal reflux disease without esophagitis; K29.70 Gastritis, unspecified, without bleeding; Z51.5 Encounter for palliative care; Z79.899 Other long term (current) drug therapy; Z86.73 Personal history of transient ischemic attack (TIA), and cerebral infarction without residual deficits; Z87.891 Personal history of nicotine dependence; Z91.15 Patient's noncompliance with renal dialysis
CPT/HCPCS: 36600; 70450; 71010; 76937; 80048; 80053; 82805; 82948; 83605; 83735; 84132; 84484; 85025; 85610; 87040; 87641; 90935; 93005; 94002; 94003; 94150; 94640; 95819; 96374; C1769; J0360; J0610; J1580; J1630; J1644; J1815; J1953; J2060; J2250; J7030; J7042; Q4081

== ENCOUNTER 2017-02-25 05:03 | Inpatient (IN) | payer MEDICARE ==
[2017-02-25] VITALS (13 sets, daily range): BP systolic 131–267; BP diastolic 82–129; PULSE 61–84; RESP 14–20; TEMP 97.8–98.2; O2SAT 95–98
[~2017-02-25] VITALS: Ht 162.6 cm; Wt 91.0 kg
[~2017-02-25 05:03] MED LIST changes: -ASPI1TAB91 PO; +ASPI81TA16 PO
--- NOTE | 2017-02-25 05:23 | PD ---
HPI Chief Complaint: Altered Mental Status Time Seen by Provider: 05:15 Travel History International Travel<30 days: No Contact w/Intl Traveler<30days: No Traveled to known affect area: No History of Present Illness HPI His is a 56-year-old female with a history of renal failure, hypertension, who presents from home via EMS for altered mental status. According to the paramedics, the patient was last dialyzed on Thursday. She was trying to get dialysis on Thursday however was unsuccessful. Her called 911 because she was confused and he was worried that she may need emergent dialysis. The patient is unable to give any history as she is confused. She will answer questions but does not know the date, year. She knows she is at the hospital. She knows her name. PFSH Past Medical History Anemia: Yes Arthritis: No Cancer: No Cardiovascular Problems: Yes High Cholesterol: Yes Congestive Heart Failure: Yes Cerebrovascular Accident: Yes Coronary Artery Disease: Yes Diabetes: Yes Patient Takes Glucophage: No Dialysis: Yes Diminished Hearing: No GERD: Yes Hypertension: Yes Implanted Vascular Access Dvce: No Musculoskeletal: No Psychiatric: No Reproductive: No Respiratory: No Pancreatitis: Yes Renal Failure: Yes (on dialysis m/w/f) Tetanus Vaccination: Unknown ?: Not : 1 Miscarriage: 1 Past Surgical History Abdominal Surgery: No Cardiac Surgery: No Ear Surgery: No Endocrine Surgery: No Eye Surgery: No Genitourinary Surgery: No Gynecologic Surgery: No Oral Surgery: No Thoracic Surgery: No Other Surgery: Yes (LT FOREARM FISTULA) Social History Alcohol Use: No Tobacco Use: No Substance Use: No Allergies-Medications (Allergen,Severity, Reaction): Coded Allergies: No Known Allergies (Unverified Allergy, Unknown, 02/25/17) Reported Meds & Prescriptions Reported Meds & Active Scripts Active Protonix (Pantoprazole Sodium) 40 Mg Tab 40 Mg PO BID Coreg (Carvedilol) 12.5 Mg Tab 25 Mg PO Q12HR Clonidine (Clonidine HCl) 0.2 Mg Tab 0.2 Mg PO BID Nifedipine ER 24 HR (Nifedipine) 60 Mg Tab 60 Mg PO BID Reported Aspirin Adult Low Strength (Aspirin) 81 Mg Tabdr 81 Mg PO DAILY Vitamin B-12 (Cyanocobalamin) 1,000 Mcg Tab 1,000 Mcg PO DAILY Glyburide 5 Mg Tab 5 Mg PO DAILY Take with meals at the same time each day Renvela (Sevelamer Carbonate) 800 Mg Tab 800 Mg PO TID Take with meals Review of Systems ROS Limitations: Clinical Condition (unable to get a clear review of systems) Except as stated in HPI: all other systems reviewed are Neg Physical Exam Narrative GENERAL: Well-developed well-nourished female in no acute respiratory distress. SKIN: Focused skin assessment warm/dry. HEAD: Atraumatic. Normocephalic. EYES: No scleral icterus. No injection or drainage. ENT: No nasal bleeding or discharge. Mucous membranes pink and moist. NECK: Trachea midline. Supple. CARDIOVASCULAR: Sinus tach with a rate of 102. No murmur appreciated. RESPIRATORY: No accessory muscle use. Clear to auscultation. Breath sounds equal bilaterally. Decreased respiratory effort. GASTROINTESTINAL: Abdomen soft, non-tender, nondistended. MUSCULOSKELETAL: No obvious deformities. No clubbing. No cyanosis. Trace edema bilateral lower extremities. NEUROLOGICAL: Awake and confused. No obvious cranial nerve deficits. Motor grossly within normal limits. Normal speech. Data Data Last Documented VS Vital Signs Date Time Temp Pulse Resp B/P (MAP) Pulse Ox O2 Delivery O2 Flow Rate FiO2 02/25/17 06:46 84 20 211/107 (141) 95 Nasal Cannula 2.00 02/25/17 05:06 98.0 Orders Orders Ammonia (02/25/17 05:16) Complete Blood Count With Diff (02/25/17 05:16) Comprehensive Metabolic Panel (02/25/17 05:16) Creatine Kinase (Cpk) (02/25/17 05:16) Troponin I (02/25/17 05:16) Chest, Single Ap (02/25/17 05:16) Ct Brain W/O Iv Contrast(Rout) (02/25/17 05:16) Blood Glucose (02/25/17 05:16) Ecg Monitoring (02/25/17 05:16) Iv Access Insert/Monitor (02/25/17 05:16) Oximetry (02/25/17 05:16) Sodium Chloride 0.9% Flush (Ns Flush) (02/25/17 05:30) Electrocardiogram (02/25/17 05:17) Lactic Acid Sepsis Protocol (02/25/17 05:23) Hydralazine Inj (Apresoline Inj) (02/25/17 06:45) Admit Order (Ed Use Only) (02/25/17 06:38) Consult Nephrology (02/25/17 ) Labs Laboratory Tests Test 02/25/17 05:41 White Blood Count 8.1 TH/MM3 Red Blood Count 3.75 MIL/MM3 Hemoglobin 11.7 GM/DL Hematocrit 34.9 % Mean Corpuscular Volume 93.1 FL Mean Corpuscular Hemoglobin 31.2 PG Mean Corpuscular Hemoglobin Concent 33.6 % Red Cell Distribution Width 15.4 % Platelet Count 265 TH/MM3 Mean Platelet Volume 8.2 FL Neutrophils (%) (Auto) 78.0 % Lymphocytes (%) (Auto) 10.3 % Monocytes (%) (Auto) 7.5 % Eosinophils (%) (Auto) 3.1 % Basophils (%) (Auto) 1.1 % Neutrophils # (Auto) 6.3 TH/MM3 Lymphocytes # (Auto) 0.8 TH/MM3 Monocytes # (Auto) 0.6 TH/MM3 Eosinophils # (Auto) 0.3 TH/MM3 Basophils # (Auto) 0.1 TH/MM3 CBC Comment DIFF FINAL Differential Comment Blood Urea Nitrogen 69 MG/DL Creatinine 13.24 MG/DL Random Glucose 143 MG/DL Total Protein 7.5 GM/DL Albumin 3.8 GM/DL Calcium Level 13.7 MG/DL Alkaline Phosphatase 64 U/L Aspartate Amino Transf (AST/SGOT) 15 U/L Alanine Aminotransferase (ALT/SGPT) 14 U/L Total Bilirubin 0.5 MG/DL Sodium Level 135 MEQ/L Potassium Level 5.4 MEQ/L Chloride Level 99 MEQ/L Carbon Dioxide Level 25.1 MEQ/L Anion Gap 11 MEQ/L Estimat Glomerular Filtration Rate 3 ML/MIN Lactic Acid Level 0.9 mmol/L Protein Corrected Calcium 13.4 MG/DL Ammonia 11 MCMOL/L Total Creatine Kinase 60 U/L Troponin I 0.82 NG/ML MDM Medical Decision Making Medical Screen Exam Complete: Yes Emergency Medical Condition: Yes Differential Diagnosis Sepsis versus fluid overload versus metabolic arrangement Narrative Course 46-year-old female with a history of renal failure, dialysis dependent, presents here from home with altered mental status. The patient reportedly last had dialysis on Thursday. According to the paramedics the reportedly tried to get to dialysis on Thursday however were unsuccessful because Motrin was not running. She presents here with altered mental status. She is awake however confused. She is able to answer questions. Her airway is protected. Her troponin is elevated at 0.8. Creatinine is 13.24, potassium 5.4 protein corrected calcium is 13.3. Given this and her altered mental status , the patient be admitted to the intensive care unit. The case was discussed with Dr. Ekaterina Medellin who is agreeable for admission. There is a call out to Dr. Freedman, on-call for nephrology for dialysis. Critical Care Narrative Aggregate critical care time was 45 minutes. Time to perform other separately billable procedures was not included in the critical care time. My time did not include minutes spent treating any other patients simultaneously or on activities that did not directly contribute to the patient's treatment. The services I provided to this patient were to treat and/or prevent clinically significant deterioration that could result in: I provided critical care services requiring my management, as noted below: Chart data review, documentation time, medication orders and management, vital sign assessments/reviewing monitor data, ordering and reviewing lab tests, ordering and interpreting/reviewing x-rays and diagnostic studies, care of the patient and discussion of the patient with the admitting physicians. Diagnosis Primary Impression: Altered sensorium Additional Impressions: End stage renal disease on dialysis Hypercalcemia Elevated troponin Uncontrolled hypertension Hyperkalemia Admitting Information Admitting Physician Requests: Admit Erik Wilson MD Feb 25, 2017 05:23
[2017-02-25] MEDS ORDERED: SODIUM CHLORIDE 0.9% FLUSH 10 ML FLUSH IV FLUSH PRN ×3 (05:30→07:45)
[2017-02-25 05:54] LABS: AUTOMATED NEUTROPHIL # 6.3 TH/MM3 (1.8-7.7); BASOPHIL # 0.1 TH/MM3 (0-0.2); BASOPHIL % 1.1 % (0.0-2.0); EOSINOPHIL # 0.3 TH/MM3 (0-0.4); EOSINOPHIL % 3.1 % (0.0-4.0); HEMATOCRIT 34.9 % (35.0-46.0); HEMOGLOBIN 11.7 GM/DL (11.6-15.3); LYMPH % 10.3 % (9.0-44.0); LYMPHOCYTE # 0.8 TH/MM3 (1.0-4.8); MEAN CELL VOLUME 93.1 FL (80.0-100.0); MEAN CORPUSCULAR HEMOGLOBIN 31.2 PG (27.0-34.0); MEAN CORPUSCULAR HGB CONC 33.6 % (32.0-36.0); MEAN PLATELET VOLUME 8.2 FL (7.0-11.0); MONO % 7.5 % (0.0-8.0); MONOCYTE # 0.6 TH/MM3 (0-0.9); PLATELET COUNT 265 TH/MM3 (150-450); RED BLOOD COUNT 3.75 MIL/MM3 (4.00-5.30); RED CELL DISTRIBUTION WIDTH 15.4 % (11.6-17.2); WHITE BLOOD COUNT 8.1 TH/MM3 (4.0-11.0)
[2017-02-25 06:09] LABS: ALBUMIN 3.8 GM/DL (3.4-5.0); BICARBONATE 25.1 MEQ/L (21.0-32.0)
[2017-02-25 06:12] LABS: CALCIUM 13.7 MG/DL (8.5-10.1); CREATININE 13.24 MG/DL (0.50-1.00)
[2017-02-25 06:17] LABS: TOTAL BILIRUBIN ADULT 0.5 MG/DL (0.2-1.0); TOTAL PROTEIN 7.5 GM/DL (6.4-8.2)
[2017-02-25 06:19] LABS: CALCIUM-PROTEIN CORRECTED 13.4 MG/DL (8.5-10.1); TROPONIN I 0.82 NG/ML (0.02-0.05)
--- NOTE | 2017-02-25 06:25 | RADRPT ---
EXAM DATE/TIME: 02/25/2017 06:01 [facility] COMPARISON: CT BRAIN W/O CONTRAST, December 22, 2016, 11:03. INDICATIONS : Altered mental status. RADIATION DOSE: 33.67 CTDIvol (mGy) MEDICAL HISTORY : Cerebrovascular disease. Cardiovascular disease Hypertension.Renal Failure Dialysis GERD SURGICAL HISTORY : None. ENCOUNTER: Initial ACUITY: 1 day PAIN SCALE: 0/10 LOCATION: cranial TECHNIQUE: Multiple contiguous axial images were obtained of the head. Using automated exposure control and adj ustment of the mA and/or kV according to patient size, radiation dose was kept as low as reasonably a chievable to obtain optimal diagnostic quality images. DICOM format image data is available [facility] for review and comparison. FINDINGS: Motion degraded exam. CEREBRUM: Encephalomalacia involving the left parietal lobe. Periventricular low attenuation change involving b oth cerebral hemispheres. Chronic lacunar infarction involving right basal ganglia. The ventricles ar e normal for age. No evidence of midline shift, mass lesion, hemorrhage or acute infarction. No ext ra-axial fluid collections are seen. POSTERIOR FOSSA: The cerebellum and brainstem are intact. The 4th ventricle is midline. The cerebellopontine angle i s unremarkable. EXTRACRANIAL: The visualized portion of the orbits is intact. SKULL: The calvaria is intact. No evidence of skull fracture. CONCLUSION: 1. Motion degraded exam. 2. Stable encephalomalacia in the left parietal lobe and chronic small vessel ischemic change. 3. No acute intracranial abnormality. Navneet Gray Jr., MD on February 25, 2017 at 6:22 Board Certified Radiologist. This report was verified electronically.
[2017-02-25] MEDS ORDERED: ACETAMINOPHEN 325 MG TAB PO PRN ×2 (06:45→07:45)
[2017-02-25] MEDS ORDERED: SENNOSIDES 8.6 MG TAB PO PRN (06:45)
[2017-02-25] MEDS ORDERED: CHLORHEXIDINE GLUCONATE 2 % 1 PACK (2 CLOTHS) TOP PRN (06:45)
[2017-02-25] MEDS ORDERED: MAGNESIUM HYDROXIDE SUSP 30 ML CUP PO PRN (06:45)
[2017-02-25] MEDS ORDERED: hydrALAZINE HCL 20 MG/ML VIAL IV PUSH ONE (06:45)
[2017-02-25] MEDS ORDERED: MISCELLANEOUS NURSING INFORMATION XX SCH (06:45)
[2017-02-25] MEDS ORDERED: LACTULOSE SYRUP 20 GM/30 ML CUP PO PRN (06:45)
[2017-02-25] MEDS ORDERED: RESP: ALBUTEROL 2.5 MG/IPRATROPIUM 0.5 MG NEB (PRN) INH (06:45)
[2017-02-25] MEDS ORDERED: BISACODYL 10 MG SUPP RECTAL PRN (06:45)
[2017-02-25] MEDS ORDERED: ONDANSETRON HCL 4 MG/2 ML VIAL IV PUSH PRN ×2 (06:45→07:45)
[2017-02-25] MEDS ORDERED: LABETALOL HCL 100 MG/20 ML VIAL IV PUSH PRN ×2 (07:00→21:00)
[2017-02-25] MEDS ORDERED: hydrALAZINE HCL 20 MG/ML VIAL IV PUSH PRN (07:00)
[2017-02-25] MEDS ORDERED: DEXTROSE 50% IN WATER 50 ML VIAL(D50) IV PUSH PRN (07:00)
[2017-02-25] MEDS ORDERED: GLUCAGON 1 MG/ML VIAL OTHER PRN (07:00)
--- NOTE | 2017-02-25 07:18 | RADRPT ---
EXAM DATE/TIME: 02/25/2017 05:36 [facility] COMPARISON: CHEST SINGLE AP, December 23, 2016, 10:43. INDICATIONS : Shortness of breath. MEDICAL HISTORY : None. SURGICAL HISTORY : None. ENCOUNTER: Initial ACUITY: 1 day PAIN SCORE: 0/10 LOCATION: Bilateral chest FINDINGS: There is patchy consolidation of both bases. Suspected small effusion on the left. I don't see a pneu mothorax. Heart size stable, mildly enlarged. CONCLUSION: Mild bibasilar consolidation and small left effusion. Navneet Gray Jr., MD on February 25, 2017 at 6:24 Board Certified Radiologist. This report was verified electronically.
[2017-02-25] MEDS: HEPARIN SODIUM - SQ 10,000 UNITS/ML VIAL SQ SCH ×2 (07:37→21:53)
[2017-02-25] MEDS ORDERED: SODIUM CHLOR 0.9% 1000 ML INJ 1,000 ML IV PRN (07:42)
[2017-02-25] MEDS ORDERED: SODIUM CHLOR 0.9% 1000 ML INJ 1,000 ML OTHER PRN ×2 (07:42)
[2017-02-25] MEDS ORDERED: GENTAMICIN SULFATE (DIALYSIS USE ONLY) 20 MG/2 ML VIAL OTHER PRN (07:45)
[2017-02-25] MEDS ORDERED: ALBUMIN 25% INJ 100 ML IV PRN (07:45)
[2017-02-25] MEDS ORDERED: diphenhydrAMINE HCL 25 MG CAP PO PRN (07:45)
[2017-02-25] MEDS ORDERED: NITROGLYCERIN 0.4 MG SL 25 TABS/BTL SL PRN (07:45)
[2017-02-25] MEDS ORDERED: HEPARIN SODIUM - IV 10,000 UNITS/10 ML VIAL PRN (07:45)
[2017-02-25] MEDS ORDERED: MANNITOL 12.5 GM/50 ML VIAL IV PRN (07:45)
[2017-02-25] MEDS ORDERED: HEPARIN SODIUM - IV 10,000 UNITS/10 ML VIAL IV FLUSH PRN (07:45)
[2017-02-25] MEDS: FAMOTIDINE 20 MG/2 ML VIAL IV PUSH SCH ×2 (09:00→21:53)
--- NOTE | 2017-02-25 09:35 | EKG ---
Date Performed: 02/25/2017 Time Performed: 05:31:14 PTAGE: 56 years EKG: ECTOPIC ATRIAL RHYTHM INCOMPLETE RIGHT BUNDLE BRANCH BLOCK ANTEROLATERAL MYOCARDIAL INFARCT ION NO PREVIOUS TRACING DOCTOR: Pablo Montgomery Interpretating Date/Time 02/25/2017 09:35:38
--- NOTE | 2017-02-25 11:13 | HHI.HP ---
HPI Service Critical Care Medicine Primary Care Physician Unknown Admission Diagnosis altered sensorium, hyperkalemia, hypercalcemia, uncontrolled htn. Diagnosis: (1) Non-compliance Diagnosis: Principal (2) Hypertension Diagnosis: Principal (3) Diabetes mellitus Diagnosis: Secondary (4) Altered mental status Diagnosis: Principal (5) ESRD (end stage renal disease) Diagnosis: Principal (6) Anemia Diagnosis: Secondary (7) Encephalopathy Diagnosis: Principal Travel History International Travel<30 Days: No Contact w/Intl Traveler <30 Da: No Traveled to Known Affected Are: No History of Present Illness This is a 56-year-old female with a history of ESRD, hypertension, presented from via EMS for altered mental status. Per EMS, the patient was last dialyzed on Thursday. She was trying to get dialysis on Thursday however was unsuccessful. Her called 911 because she was confused and he was worried that she may need emergent dialysis. The patient is unable to give any history as she is confused. Patient is lethargic, requiring restraints for patient safety. Notably hypertensive upon entry to the ED BP 211/107, to hypertensive medications being provided. Nephrology was consulted and notified with plan for emergent dialysis this a.m. .Critical care medicine was consulted. History PFSH Past Medical History Anemia: Yes Arthritis: No Cancer: No Cardiovascular Problems: Yes High Cholesterol: Yes Congestive Heart Failure: Yes Cerebrovascular Accident: Yes Coronary Artery Disease: Yes Diabetes: Yes Patient Takes Glucophage: No Dialysis: Yes Diminished Hearing: No GERD: Yes Hypertension: Yes Implanted Vascular Access Dvce: No Musculoskeletal: No Psychiatric: No Reproductive: No Respiratory: No Pancreatitis: Yes Renal Failure: Yes (on dialysis m/w/f) Tetanus Vaccination: Unknown ?: Not : 1 Miscarriage: 1 Past Surgical History Abdominal Surgery: No Cardiac Surgery: No Ear Surgery: No Endocrine Surgery: No Eye Surgery: No Genitourinary Surgery: No Gynecologic Surgery: No Oral Surgery: No Thoracic Surgery: No Other Surgery: Yes (LT FOREARM FISTULA) Social History Alcohol Use: No Tobacco Use: No Substance Use: No Allergies-Medications Allergies-Medications (Allergen,Severity, Reaction): Coded Allergies: No Known Allergies (Unverified Allergy, Unknown, 02/25/17) Reported Meds & Prescriptions Reported Meds & Active Scripts Active Protonix (Pantoprazole Sodium) 40 Mg Tab 40 Mg PO BID Coreg (Carvedilol) 12.5 Mg Tab 25 Mg PO Q12HR Clonidine (Clonidine HCl) 0.2 Mg Tab 0.2 Mg PO BID Nifedipine ER 24 HR (Nifedipine) 60 Mg Tab 60 Mg PO BID Reported Aspirin Adult Low Strength (Aspirin) 81 Mg Tabdr 81 Mg PO DAILY Vitamin B-12 (Cyanocobalamin) 1,000 Mcg Tab 1,000 Mcg PO DAILY Glyburide 5 Mg Tab 5 Mg PO DAILY Take with meals at the same time each day Renvela (Sevelamer Carbonate) 800 Mg Tab 800 Mg PO TID Take with meals ROS Review of Systems ROS Limitations: Clinical Condition (unable to get a clear review of systems) Except as stated in HPI: all other systems reviewed are Neg Physical Exam Vital Signs Vital Signs Date Time Temp Pulse Resp B/P (MAP) Pulse Ox O2 Delivery O2 Flow Rate FiO2 02/25/17 08:05 74 17 224/99 (140) 98 Nasal Cannula 3.00 02/25/17 07:08 97 Nasal Cannula 3.00 02/25/17 06:50 84 16 267/129 (175) 98 Nasal Cannula 2.00 02/25/17 06:46 84 20 211/107 (141) 95 Nasal Cannula 2.00 02/25/17 05:19 15 96 Room Air 02/25/17 05:17 96 Room Air 02/25/17 05:06 98.0 80 15 211/107 (141) 95 Physical Exam GENERAL: Obese unkempt female patient, extremely lethargic, thrashing in bed, not following commands SKIN: Warm and dry. HEAD: Atraumatic. Normocephalic. EYES: Pupils equal and round. No scleral icterus. No injection or drainage. ENT: No nasal bleeding or discharge. Mucous membranes pink and moist. NECK: Trachea midline. No JVD. CARDIOVASCULAR: Normal rate, regular rhythm. Hypertensive 211/107 RESPIRATORY: No accessory muscle use. Clear to auscultation. Breath sounds equal bilaterally. GASTROINTESTINAL: Abdomen soft, non-tender, nondistended. No guarding. MUSCULOSKELETAL: Extremities without clubbing, cyanosis, or edema. No obvious deformities. Positive bruit and thrill left forearm AV graft NEUROLOGICAL: Lethargic. RASS -1. No gross focal/sensory deficits. Does not follow commands Laboratory Laboratory Tests Test 02/25/17 05:41 White Blood Count 8.1 Red Blood Count 3.75 Hemoglobin 11.7 Hematocrit 34.9 Mean Corpuscular Volume 93.1 Mean Corpuscular Hemoglobin 31.2 Mean Corpuscular Hemoglobin Concent 33.6 Red Cell Distribution Width 15.4 Platelet Count 265 Mean Platelet Volume 8.2 Neutrophils (%) (Auto) 78.0 Lymphocytes (%) (Auto) 10.3 Monocytes (%) (Auto) 7.5 Eosinophils (%) (Auto) 3.1 Basophils (%) (Auto) 1.1 Neutrophils # (Auto) 6.3 Lymphocytes # (Auto) 0.8 Monocytes # (Auto) 0.6 Eosinophils # (Auto) 0.3 Basophils # (Auto) 0.1 CBC Comment DIFF FINAL Differential Comment Blood Urea Nitrogen 69 Creatinine 13.24 Random Glucose 143 Total Protein 7.5 Albumin 3.8 Calcium Level 13.7 Alkaline Phosphatase 64 Aspartate Amino Transf (AST/SGOT) 15 Alanine Aminotransferase (ALT/SGPT) 14 Total Bilirubin 0.5 Sodium Level 135 Potassium Level 5.4 Chloride Level 99 Carbon Dioxide Level 25.1 Anion Gap 11 Estimat Glomerular Filtration Rate 3 Lactic Acid Level 0.9 Protein Corrected Calcium 13.4 Ammonia 11 Total Creatine Kinase 60 Troponin I 0.82 Result Diagram: 02/25/1741 02/25/17540 Imaging Last Impressions Head CT 02/25/17515 Signed Impressions: Service Date/Time: Saturday, February 25, 2017 06:01 - CONCLUSION: 1. Motion degraded exam. 2. Stable encephalomalacia in the left parietal lobe and chronic small vessel ischemic change. 3. No acute intracranial abnormality. Navneet Gray Jr., MD Chest X-Ray 02/25/17515 Signed Impressions: Service Date/Time: Saturday, February 25, 2017 05:36 - CONCLUSION: Mild bibasilar consolidation and small left effusion. Navneet Gray Jr., MD Septic Shock Reassessment Septic shock perfusion: reassessment completed Caprini VTE Risk Assessment Caprini VTE Risk Assessment: Mod/High Risk (score >= 2) Caprini Risk Assessment Model Point Value = 1 Point Value = 2 Point Value = 3 Point Value = 5 Age 41-60 Minor surgery BMI > 25 kg/m2 Swollen legs Varicose veins or History of unexplained or recurrent spontaneous Oral contraceptives or hormone replacement Sepsis (< 1 month) Serious lung disease, including pneumonia (< 1 month) Abnormal pulmonary function Acute myocardial infarction Congestive heart failure (< 1 month) History of inflammatory bowel disease Medical patient at bed rest Age 61-74 Arthroscopic surgery Major open surgery (> 45 min) Laparoscopic surgery (> 45 min) Malignancy Confined to bed (> 72 hours) Immobilizing plaster cast Central venous access Age >= 75 History of VTE Family history of VTE Factor V Leiden Prothrombin [id number] Lupus anticoagulant Anticardiolipin antibodies Elevated serum homocysteine Heparin-induced thrombocytopenia Other congenital or acquired thrombophilia Stroke (< 1 month) Elective arthroplasty Hip, pelvis, or leg fracture Acute spinal cord injury (< 1 month) Prophylaxis Regimen Total Risk Factor Score Risk Level Prophylaxis Regimen 0-1 Low Early ambulation 2 Moderate Order ONE of the following: *Sequential Compression Device (SCD) *Heparin 5000 units SQ BID 3-4 Higher Order ONE of the following medications: *Heparin 5000 units SQ TID *Enoxaparin/Lovenox 40 mg SQ daily (WT < 150 kg, CrCl > 30 mL/min) *Enoxaparin/Lovenox 30 mg SQ daily (WT < 150 kg, CrCl > 10-29 mL/min) *Enoxaparin/Lovenox 30 mg SQ BID (WT < 150 kg, CrCl > 30 mL/min) AND/OR *Sequential Compression Device (SCD) 5 or more Highest Order ONE of the following medications: *Heparin 5000 units SQ TID (Preferred with Epidurals) *Enoxaparin/Lovenox 40 mg SQ daily (WT < 150 kg, CrCl > 30 mL/min) *Enoxaparin/Lovenox 30 mg SQ daily (WT < 150 kg, CrCl > 10-29 mL/min) *Enoxaparin/Lovenox 30 mg SQ BID (WT < 150 kg, CrCl > 30 mL/min) AND *Sequential Compression Device (SCD) Assessment and Plan Assessment and Plan This is a 56-year-old female with chronic end-stage renal disease, dialysis dependent that missed dialysis, approximately 5-7 days, now presents with altered mental status. A chin is currently lethargic, encephalopathic and hypertensive. Plan for emergent dialysis this a.m.. Patient is at risk for intubation for protection of airway currently Admit to ICU. Plan by systems: Neurologic: Metabolic encephalopathy Neurochecks per ICU protocol Avoid Long-acting sedatives Tylenol 150 mg every 6 hours when necessary for pain and/or temperature greater than 100.5 CT brain- no acute abnormality, chronic stable encephalomalacia Respiratory: Maintain O2 sat greater than 92% Right O2 via nasal cannula 1-4 L/m Duo nebs every 4 hours when necessary for wheezing Maintain head of bed greater than 30 patient is at risk currently for aspiration Monitor closely patient is at risk for intubation for airway protection secondary to altered status Cardiovascular: Hypertensive urgency BP 211/107 Hydralazine 20 mg every 4 hoursfor SBP > 160mmHg Labetalol 10 mg every 6 hours for SBP > 180mmHg Initial troponin 0.82 most likely secondary to end-stage renal failure Will resume home meds when patient passes swallow evaluation Renal: ESRD Nephrology consulted- Dr. Freedman Emergent dialysis this a.m. -- Strict I/Os FEN/GI: Electrolyte derangement Maintain nothing by mouth status for now Replete electrolytes per nephrology Protein corrected calcium 13.7, potassium level 5.4, creatinine 13.24 Bedside swallow, possible formal swallow by speech therapy Heme/ID: Anemia of chronic disease Monitor CBC Endocrine: Glucose monitoring per ICU protocol -- SSI Prophylaxis: GI Prophylaxis Famotidine BID DVT Prophylaxis -- SCDs Heparin subcutaneous Q 12 h Lines: Peripheral IVs 2 providing adequate access. Central line if indicated. Dispo: my billing statement This patient remains critically ill with one or more organ systems which are or may become a threat to life. I have spent in excess of 37 minutes discontinuously in the care and management of this patient. This time is exclusive of procedures, and includes, but is not limited to, evaluation of the patient, review of the medical record, discussions with family, consultants, nursing staff, or respiratory therapy, and documentation in the medical record. Code Status full Discussed Condition With Dr Wilson, ED RN, [employer] at bedside Problem Qualifiers (1) Diabetes mellitus: (2) Altered mental status: Qualified Codes: R41.0 - Disorientation, unspecified (3) Anemia: Ekaterina Medellin MD Feb 25, 2017 11:13
[2017-02-25] MEDS: INSULIN ASPART SUPPLEMENTAL SCALE SQ SCH ×3 (12:00→21:00)
--- NOTE | 2017-02-25 13:51 | PD.CONS ---
HPI Service Nephrology Consult Requested By Dr. Medellin Reason for Consult ESRD Primary Care Physician Unknown History of Present Illness Patient is a 56-year-old female with history of end-stage renal disease who is noncompliant with hemodialysis follows with Dr. ARROYO, she missed her dialysis and was confused prior to lethargic, and altered mental status the and found to have uremia along with hyperkalemia, potassium was 5.5 she was admitted for hemodialysis. Currently she is distraught and crying a lot and wants to go home. Review of Systems ROS Limitations: Clinical Condition Constitutional: COMPLAINS OF: Fatigue Past Family Social History Allergies: Coded Allergies: No Known Allergies (Unverified Allergy, Unknown, 02/25/17) Past Medical History History of noncompliance with medical management And hemodialysis ESRD Hypertension Anxiety disorder COPD Depression Coronary artery disease Congestive heart failure Diabetes Past Surgical History AV fistula in the left forearm Reported Medications Reported Meds & Active Scripts Active Protonix (Pantoprazole Sodium) 40 Mg Tab 40 Mg PO BID Coreg (Carvedilol) 12.5 Mg Tab 25 Mg PO Q12HR Clonidine (Clonidine HCl) 0.2 Mg Tab 0.2 Mg PO BID Nifedipine ER 24 HR (Nifedipine) 60 Mg Tab 60 Mg PO BID Reported Aspirin Adult Low Strength (Aspirin) 81 Mg Tabdr 81 Mg PO DAILY Vitamin B-12 (Cyanocobalamin) 1,000 Mcg Tab 1,000 Mcg PO DAILY Glyburide 5 Mg Tab 5 Mg PO DAILY Take with meals at the same time each day Renvela (Sevelamer Carbonate) 800 Mg Tab 800 Mg PO TID Take with meals Active Ordered Medications Current Medications Medications (Trade) Dose Ordered Sig/Shaun Route Start Time Stop Time Status Last Admin (NS Flush) 2 ml UNSCH PRN IV FLUSH 02/25/17 06:45 (NS Flush) 2 ml BID IV FLUSH 02/25/17 09:00 (Tylenol) 650 mg Q6H PRN PO 02/25/17 06:45 (Pepcid Inj) 10 mg Q12HR IV PUSH 02/25/17 09:00 (Pepcid) 10 mg Q12HR PO 02/25/17 09:00 (Zofran Inj) 4 mg Q6H PRN IV PUSH 02/25/17 06:45 (Duoneb Neb) 1 ampule Q4HR NEB PRN INH 02/25/17 06:45 (Heparin Inj) 5,000 units Q12H SQ 02/25/17 08:00 02/25/17 07:37 Miscellaneous Information 1 Q361D XX 02/25/17 06:45 (Chlorhexidine 2% Cloth) 3 pack Taper DAILY@04 TOP 02/26/17 04:00 02/22/18 03:59 (Chlorhexidine 2% Cloth) 3 pack UNSCH PRN TOP 02/25/17 06:45 (Mary Kay-Colace) 1 tab BID PO 02/25/17 09:00 (Milk Of Magnesia Liq) 30 ml Q12H PRN PO 02/25/17 06:45 (Senokot) 17.2 mg Q12H PRN PO 02/25/17 06:45 (Dulcolax Supp) 10 mg DAILY PRN RECTAL 02/25/17 06:45 (Lactulose Liq) 30 ml DAILY PRN PO 02/25/17 06:45 (NovoLOG SUPPLEMENTAL SCALE) 1 ACHS SLIDING SCALE SQ 02/25/17 08:00 (D50w (Vial) Inj) 50 ml UNSCH PRN IV PUSH 02/25/17 07:00 (Glucagon Inj) 1 mg UNSCH PRN OTHER 02/25/17 07:00 (Trandate Inj) 10 mg Q6H PRN IV PUSH 02/25/17 07:00 02/25/17 07:37 (Apresoline Inj) 20 mg Q4H PRN IV PUSH 02/25/17 07:00 Sodium Chloride 1,000 ml @ 0 mls/hr Q0M PRN OTHER 02/25/17 07:42 (Heparin Inj) 8,000 units UNSCH PRN IV FLUSH 02/25/17 07:45 Sodium Chloride 1,000 ml @ 200 mls/hr Q5H PRN IV 02/25/17 07:42 Sodium Chloride 1,000 ml @ 0 mls/hr Q0M PRN OTHER 02/25/17 07:42 (Mannitol Inj) 12.5 gm UNSCH PRN IV 02/25/17 07:45 Albumin Human 100 ml @ 60 mls/hr UNSCH PRN IV 02/25/17 07:45 (NS Flush) 5 ml UNSCH PRN IV FLUSH 02/25/17 07:45 (Heparin Inj) UNSCH PRN .XX 02/25/17 07:45 (Gentamicin (Dialysis) Inj) 20 mg UNSCH PRN OTHER 02/25/17 07:45 (Zofran Inj) 4 mg UNSCH PRN IV PUSH 02/25/17 07:45 (Tylenol) 650 mg UNSCH PRN PO 02/25/17 07:45 (Benadryl) 25 mg UNSCH PRN PO 02/25/17 07:45 (Nitrostat Sl) 0.4 mg UNSCH PRN SL 02/25/17 07:45 (Catapres) 0.1 mg UNSCH PRN PO 02/25/17 07:45 (Gelfoam 12 Mm/7 Mm Top) 1 foam UNSCH PRN TOP 02/25/17 07:45 Social History History of smoking Physical Exam Vital Signs Vital Signs Date Time Temp Pulse Resp B/P (MAP) Pulse Ox O2 Delivery O2 Flow Rate FiO2 02/25/17 08:05 74 17 224/99 (140) 98 Nasal Cannula 3.00 02/25/17 07:08 97 Nasal Cannula 3.00 02/25/17 06:50 84 16 267/129 (175) 98 Nasal Cannula 2.00 02/25/17 06:46 84 20 211/107 (141) 95 Nasal Cannula 2.00 02/25/17 05:19 15 96 Room Air 02/25/17 05:17 96 Room Air 02/25/17 05:06 98.0 80 15 211/107 (141) 95 Physical Exam GENERAL: Well-nourished, well-developed patient. SKIN: Warm and dry. HEAD: Normocephalic. EYES: No scleral icterus. No injection or drainage. NECK: Supple, trachea midline. No JVD or lymphadenopathy. CARDIOVASCULAR: Regular rate and rhythm without murmurs, gallops, or rubs. RESPIRATORY: Breath sounds equal bilaterally. No accessory muscle use. GASTROINTESTINAL: Abdomen soft, non-tender, nondistended. EXTREMITIES: No cyanosis, or edema. NEUROLOGICAL: Awake, alert, confused Laboratory Laboratory Tests Test 02/25/17 05:41 White Blood Count 8.1 Red Blood Count 3.75 Hemoglobin 11.7 Hematocrit 34.9 Mean Corpuscular Volume 93.1 Mean Corpuscular Hemoglobin 31.2 Mean Corpuscular Hemoglobin Concent 33.6 Red Cell Distribution Width 15.4 Platelet Count 265 Mean Platelet Volume 8.2 Neutrophils (%) (Auto) 78.0 Lymphocytes (%) (Auto) 10.3 Monocytes (%) (Auto) 7.5 Eosinophils (%) (Auto) 3.1 Basophils (%) (Auto) 1.1 Neutrophils # (Auto) 6.3 Lymphocytes # (Auto) 0.8 Monocytes # (Auto) 0.6 Eosinophils # (Auto) 0.3 Basophils # (Auto) 0.1 CBC Comment DIFF FINAL Differential Comment Blood Urea Nitrogen 69 Creatinine 13.24 Random Glucose 143 Total Protein 7.5 Albumin 3.8 Calcium Level 13.7 Alkaline Phosphatase 64 Aspartate Amino Transf (AST/SGOT) 15 Alanine Aminotransferase (ALT/SGPT) 14 Total Bilirubin 0.5 Sodium Level 135 Potassium Level 5.4 Chloride Level 99 Carbon Dioxide Level 25.1 Anion Gap 11 Estimat Glomerular Filtration Rate 3 Lactic Acid Level 0.9 Protein Corrected Calcium 13.4 Ammonia 11 Total Creatine Kinase 60 Troponin I 0.82 Result Diagram: 02/25/1741 02/25/1741 Imaging Last Impressions Head CT 02/25/17515 Signed Impressions: Service Date/Time: Saturday, February 25, 2017 06:01 - CONCLUSION: 1. Motion degraded exam. 2. Stable encephalomalacia in the left parietal lobe and chronic small vessel ischemic change. 3. No acute intracranial abnormality. Navneet Gray Jr., MD Chest X-Ray 02/25/17515 Signed Impressions: Service Date/Time: Saturday, February 25, 2017 05:36 - CONCLUSION: Mild bibasilar consolidation and small left effusion. Navneet Gray Jr., MD Assessment and Plan Problem List: (1) ESRD (end stage renal disease) ICD Codes: N18.6 - End stage renal disease Status: Chronic Plan: She received dialysis she is more awake in the wanted to go home however she is confused, ultrafiltration on 5 L was done We will feed her and tried to give her her medications Her blood pressure under control (2) Altered mental status ICD Codes: R41.82 - Altered mental status, unspecified Status: Chronic Plan: Patient has uremia continue to monitor (3) Encephalopathy ICD Codes: G93.40 - Encephalopathy, unspecified Plan: Due to renal failure and metabolic (4) Diabetes mellitus ICD Codes: E11.9 - Type 2 diabetes mellitus without complications Status: Chronic Plan: Resume diet (5) Hypercalcemia ICD Codes: E83.52 - Hypercalcemia Status: Acute Plan: Unclear etiology I will order parathyroid hormone and vitamin D 25 level (6) Hyperkalemia ICD Codes: E87.5 - Hyperkalemia Status: Acute Plan: Due to renal failure (7) Hypertensive urgency ICD Codes: I16.0 - Hypertensive urgency Status: Acute Plan: Resume outpatient blood pressure medication Problem Qualifiers (1) Altered mental status: Qualified Codes: R41.0 - Disorientation, unspecified (2) Diabetes mellitus: Sylvain Freedman MD Feb 25, 2017 13:51
[2017-02-25] MEDS: ALPRAZolam 0.25 MG TAB PO PRN (14:14)
[2017-02-25] MEDS: SODIUM CHLORIDE 0.9% FLUSH 10 ML FLUSH IV FLUSH SCH ×2 (14:14→21:54)
[2017-02-25 14:43] LABS: HEMATOCRIT 37.8 % (35.0-46.0); HEMOGLOBIN 12.5 GM/DL (11.6-15.3); MEAN CELL VOLUME 93.2 FL (80.0-100.0); MEAN CORPUSCULAR HEMOGLOBIN 30.7 PG (27.0-34.0); MEAN PLATELET VOLUME 8.2 FL (7.0-11.0); PLATELET COUNT 322 TH/MM3 (150-450); RED BLOOD COUNT 4.06 MIL/MM3 (4.00-5.30); RED CELL DISTRIBUTION WIDTH 15.1 % (11.6-17.2); WHITE BLOOD COUNT 7.1 TH/MM3 (4.0-11.0)
[2017-02-25] MEDS: DOCUSATE SODIUM 50 MG/SENNA 8.6 MG TAB PO SCH ×2 (15:01→21:00)
[2017-02-25] MEDS: NIFEdipine 60 MG SUSTAINED RELEASE TAB PO SCH ×2 (15:02→21:00)
[2017-02-25] MEDS: FAMOTIDINE 20 MG TAB PO SCH ×2 (15:02→21:00)
[2017-02-25] MEDS: CARVEDILOL 12.5 MG TAB PO SCH ×2 (15:03→21:00)
[2017-02-25] MEDS: cloNIDine HCL 0.2 MG TAB PO SCH ×2 (15:04→21:00)
[2017-02-25] MEDS ORDERED: LORazepam 2 MG/ML VIAL IV PUSH ONE (16:00)
[2017-02-25] MEDS ORDERED: LORazepam 2 MG/ML VIAL ONE (16:02)
[2017-02-25] MEDS: SEVELAMER CARBONATE 800 MG TAB PO SCH (17:51)
[2017-02-26] VITALS (12 sets, daily range): BP systolic 130–181; BP diastolic 70–123; PULSE 65–82; RESP 17–23; TEMP 97.2–98.7; O2SAT 92–97
[2017-02-26] MEDS: hydrALAZINE HCL 20 MG/ML VIAL IV PUSH PRN ×2 (02:24→16:04)
[2017-02-26] MEDS: CHLORHEXIDINE GLUCONATE 2 % 1 PACK (2 CLOTHS) TOP SCH (04:00)
[2017-02-26] MEDS: INSULIN ASPART SUPPLEMENTAL SCALE SQ SCH ×4 (08:00→21:00)
[2017-02-26] MEDS: CYANOCOBALAMIN 1,000 MCG TAB PO SCH (08:49)
[2017-02-26] MEDS: cloNIDine HCL 0.2 MG TAB PO SCH ×2 (08:50→21:08)
[2017-02-26] MEDS: CARVEDILOL 12.5 MG TAB PO SCH ×2 (08:50→21:07)
[2017-02-26] MEDS: FAMOTIDINE 20 MG TAB PO SCH ×2 (08:50→21:06)
[2017-02-26] MEDS: NIFEdipine 60 MG SUSTAINED RELEASE TAB PO SCH ×2 (08:50→21:06)
[2017-02-26] MEDS: DOCUSATE SODIUM 50 MG/SENNA 8.6 MG TAB PO SCH ×2 (08:50→21:00)
[2017-02-26] MEDS: glyBURIDE 5 MG TAB PO SCH (08:50)
[2017-02-26] MEDS: ASPIRIN EC 81 MG TABEC PO SCH (08:50)
[2017-02-26] MEDS: SEVELAMER CARBONATE 800 MG TAB PO SCH ×3 (08:50→21:07)
[2017-02-26] MEDS: SODIUM CHLORIDE 0.9% FLUSH 10 ML FLUSH IV FLUSH SCH ×2 (08:51→21:05)
[2017-02-26] MEDS: FAMOTIDINE 20 MG/2 ML VIAL IV PUSH SCH ×2 (08:51→21:00)
[2017-02-26] MEDS: HEPARIN SODIUM - SQ 10,000 UNITS/ML VIAL SQ SCH ×2 (08:51→20:00)
[2017-02-26 09:07] LABS: BICARBONATE 30.8 MEQ/L (21.0-32.0); CALCIUM 11.8 MG/DL (8.5-10.1); MAGNESIUM 2.5 MG/DL (1.5-2.5); PHOSPHORUS 3.4 MG/DL (2.5-4.9)
[2017-02-26 09:11] LABS: CREATININE 10.23 MG/DL (0.50-1.00)
[2017-02-26 09:21] LABS: CALCIUM-PROTEIN CORRECTED 11.3 MG/DL (8.5-10.1); TOTAL PROTEIN 7.9 GM/DL (6.4-8.2)
[2017-02-26] MEDS: cloNIDine HCL 0.1 MG TAB PO PRN (12:49)
--- NOTE | 2017-02-26 14:17 | HHI.NPPN ---
Subjective History of Present Illness Hx of ESRD, Non compliance, AMS Review of Systems General Constitutional: Fatigue Objective Data Data Vital Signs Date Time Temp Pulse Resp B/P (MAP) Pulse Ox O2 Delivery O2 Flow Rate FiO2 02/26/17 09:21 97 Nasal Cannula 4.00 02/26/17 08:00 98.1 82 23 175/92 (119) 97 02/26/17 06:00 75 02/26/17 04:02 97 Nasal Cannula 4.00 02/26/17 04:00 98.2 75 21 162/88 (112) 96 02/26/17 04:00 75 02/26/17 02:00 68 02/26/17 00:00 97.2 66 17 130/70 (90) 96 02/26/17 00:00 66 02/25/17 23:48 98 Nasal Cannula 4.00 02/25/17 22:00 65 02/25/17 20:00 98.1 61 15 131/85 (100) 98 02/25/17 20:00 61 02/25/17 18:00 63 02/25/17 16:00 81 02/25/17 16:00 98.2 81 18 161/94 (116) 97 -: 02/25/17 1410 02/26/17 0801 Physical Exam General Appearance: Well Developed, Well Nourished Neck Neck Exam: Neck Supple Pulmonary Resp Exam: Clear Bilaterally, Breath Sounds Equal Cardiology CV Exam: Regular, Normal Sinus Rhythm Gastrointestinal/Abdomen GI Exam: Soft, Non-Tender, Bowel Sounds Present Extremeties Extremities Exam: No Edema Neurologic Neuro Exam: Alert Assessment/Plan Problem List: (1) ESRD (end stage renal disease) ICD Codes: N18.6 - End stage renal disease Status: Chronic Plan: She is on hemodialysis will run longer treatment tomorrow as Cr high K 5.3 patient with AMS (2) Altered mental status ICD Codes: R41.82 - Altered mental status, unspecified Status: Chronic Plan: Patient has uremia continue to monitor (3) Encephalopathy ICD Codes: G93.40 - Encephalopathy, unspecified Plan: Due to renal failure and metabolic (4) Diabetes mellitus ICD Codes: E11.9 - Type 2 diabetes mellitus without complications Status: Chronic Plan: Resume diet (5) Hypercalcemia ICD Codes: E83.52 - Hypercalcemia Status: Acute Plan: Unclear etiology I will order parathyroid hormone and vitamin D 25 level (6) Hyperkalemia ICD Codes: E87.5 - Hyperkalemia Status: Acute Plan: Due to renal failure (7) Hypertensive urgency ICD Codes: I16.0 - Hypertensive urgency Status: Acute Plan: Resume outpatient blood pressure medication Problem Qualifiers (1) Altered mental status: Qualified Codes: R41.0 - Disorientation, unspecified (2) Diabetes mellitus: Sylvani Freedman MD Feb 26, 2017 14:17
--- NOTE | 2017-02-26 14:44 | HHI.CCPN ---
Subjective Remarks/Hospital Course This is a 56-year-old female with a history of ESRD, hypertension, presented from via EMS for altered mental status. Per EMS, the patient was last dialyzed on Thursday. She was trying to get dialysis on Thursday however was unsuccessful. Her called 911 because she was confused and he was worried that she may need emergent dialysis. The patient is unable to give any history as she is confused. Patient is lethargic, requiring restraints for patient safety. Notably hypertensive upon entry to the ED BP 211/107, to hypertensive medications being provided. Nephrology was consulted and notified with plan for emergent dialysis this a.m. .Critical care medicine was consulted. Subjective: 02/26: No acute events overnight. Patient remains confused requiring intermittent dosing of Xanax and Ativan. Patient underwent emergent hemodialysis 5 L removed. Patient now tolerating a diet more alert and responsive though confused. Discussion with family and hemodialysis nurses who have very familiar with the patient states this is the patient's baseline mental status. Objective Vital Signs Date Time Temp Pulse Resp B/P (MAP) Pulse Ox O2 Delivery O2 Flow Rate FiO2 02/26/17 09:21 97 Nasal Cannula 4.00 02/26/17 08:00 98.1 82 23 175/92 (119) Intake and Output 02/26/17 02/26/17 02/27/17 08:00 16:00 00:00 Intake Total 25 ml Output Total 0 ml Balance 25 ml Result Diagram: 02/25/17 1410 02/26/17 0801 Imaging Last Impressions Head CT 02/25/17 0516 Signed Impressions: Service Date/Time: Saturday, February 25, 2017 06:01 - CONCLUSION: 1. Motion degraded exam. 2. Stable encephalomalacia in the left parietal lobe and chronic small vessel ischemic change. 3. No acute intracranial abnormality. Navneet Gray Jr., MD Chest X-Ray 02/25/17 0516 Signed Impressions: Service Date/Time: Saturday, February 25, 2017 05:36 - CONCLUSION: Mild bibasilar consolidation and small left effusion. Navneet Gray Jr., MD Objective Remarks GENERAL: Obese female patient, alert and confused SKIN: Warm and dry. HEAD: Atraumatic. Normocephalic. EYES: Pupils equal and round. No scleral icterus. No injection or drainage. ENT: No nasal bleeding or discharge. Mucous membranes pink and moist. NECK: Trachea midline. No JVD. CARDIOVASCULAR: Normal rate, regular rhythm. Hypertensive 211/107 RESPIRATORY: No accessory muscle use. Clear to auscultation. Breath sounds equal bilaterally. GASTROINTESTINAL: Abdomen soft, non-tender, nondistended. No guarding. MUSCULOSKELETAL: Extremities without clubbing, cyanosis, or edema. No obvious deformities. Positive bruit and thrill left forearm AV graft NEUROLOGICAL: Alert and oriented. RASS 0. No gross focal/sensory deficits. Does not follow commands A/P Assessment and Plan This is a 56-year-old female with chronic end-stage renal disease, dialysis dependent that missed dialysis, approximately 5-7 days, now presents with altered mental status. The patient is currently lethargic, encephalopathic and hypertensive. Plan by systems: Neurologic: Metabolic encephalopathy Neurochecks per ICU protocol Avoid Long-acting sedatives Tylenol 150 mg every 6 hours when necessary for pain and/or temperature greater than 100.5 CT brain- no acute abnormality, chronic stable encephalomalacia Per family report the patient's baseline mental status is GCS14 Respiratory: Maintain O2 sat greater than 92% Right O2 via nasal cannula 1-4 L/m Duo nebs every 4 hours when necessary for wheezing Maintain head of bed greater than 30 patient is at risk currently for aspiration Monitor closely patient is at risk for intubation for airway protection secondary to altered status Cardiovascular: Hypertensive urgency-resolved BP 211/107 Hydralazine 20 mg every 4 hoursfor SBP > 160mmHg Labetalol 10 mg every 6 hours for SBP > 180mmHg Patient's antihypertensive medications resumed Initial troponin 0.82 most likely secondary to end-stage renal failure Renal: ESRD Nephrology consulted- Dr. Freedman Hemodialysis schedule per Nephrology-5 L removed on 02/25/17 -- Strict I/Os FEN/GI: Electrolyte derangement Begin Renal diet Replete electrolytes per nephrology Bedside swallow- successful Heme/ID: Anemia of chronic disease Monitor CBC Endocrine: Glucose monitoring per ICU protocol -- SSI Prophylaxis: GI Prophylaxis Famotidine BID DVT Prophylaxis -- SCDs Heparin subcutaneous Q 12 h Lines: Peripheral IVs 2 providing adequate access. Central line if indicated. Dispo: Level 2 Plan transfer to [facility] floor, plan transfer to [facility] in a.. Physician Ekaterina Harper MD Feb 26, 2017 14:44
[2017-02-26] MEDS: ALPRAZolam 0.25 MG TAB PO PRN ×2 (15:05→21:07)
[2017-02-26] MEDS ORDERED: LORazepam 2 MG/ML VIAL IV ONE (16:15)
[2017-02-27] VITALS (9 sets, daily range): BP systolic 132–228; BP diastolic 19–98; PULSE 66–98; RESP 18–20; TEMP 96.6–98.4; O2SAT 92–99
[2017-02-27] MEDS ORDERED: LORazepam 2 MG/ML VIAL IV PUSH ONE (01:45)
[2017-02-27] MEDS: CHLORHEXIDINE GLUCONATE 2 % 1 PACK (2 CLOTHS) TOP SCH (03:22)
[2017-02-27] MEDS: INSULIN ASPART SUPPLEMENTAL SCALE SQ SCH ×4 (08:00→21:00)
[2017-02-27] MEDS: HEPARIN SODIUM - SQ 10,000 UNITS/ML VIAL SQ SCH ×2 (08:05→20:38)
[2017-02-27] MEDS: SODIUM CHLORIDE 0.9% FLUSH 10 ML FLUSH IV FLUSH SCH ×2 (08:06→20:38)
--- NOTE | 2017-02-27 08:47 | HHI.PR ---
Subjective Remarks Seen after she returned from HD. Still confused, in restraints. With hallucinations. No fever or chills.No n/v/d/c. Denies chest pain or sob. Objective Vitals Vital Signs Date Time Temp Pulse Resp B/P (MAP) Pulse Ox O2 Delivery O2 Flow Rate FiO2 02/27/17 06:07 98.0 70 19 171/19 (69) 94 02/27/17 04:00 69 02/27/17 01:49 98.4 66 19 182/83 (116) 92 02/27/17 00:35 73 157/80 (105) 02/27/17 00:00 73 02/26/17 21:11 97.8 73 19 160/81 (107) 92 02/26/17 14:00 65 02/26/17 13:00 71 22 181/84 (116) 94 02/26/17 12:00 65 02/26/17 12:00 98.7 65 20 160/123 (135) 96 02/26/17 10:00 66 02/26/17 09:21 97 Nasal Cannula 4.00 I/O 02/26/17 02/26/17 02/26/17 02/27/17 02/27/17 02/27/17 07:00 15:00 23:00 07:00 15:00 23:00 Intake Total 25 ml Output Total 0 ml Balance 25 ml Intake Oral 25 ml Output Stool Total 0 ml # Voids 0 0 Result Diagram: 02/25/17 1410 02/26/17 0801 Imaging Last Impressions Head CT 02/25/17 0516 Signed Impressions: Service Date/Time: Saturday, February 25, 2017 06:01 - CONCLUSION: 1. Motion degraded exam. 2. Stable encephalomalacia in the left parietal lobe and chronic small vessel ischemic change. 3. No acute intracranial abnormality. Navneet Gray Jr., MD Chest X-Ray 02/25/17 0516 Signed Impressions: Service Date/Time: Saturday, February 25, 2017 05:36 - CONCLUSION: Mild bibasilar consolidation and small left effusion. Navneet Gray Jr., MD Objective Remarks GENERAL: Obese female patient, alert and confused CARDIOVASCULAR: Normal rate, regular rhythm. Hypertensive 211/107 RESPIRATORY: No accessory muscle use. Clear to auscultation. Breath sounds equal bilaterally. GASTROINTESTINAL: Abdomen soft, non-tender, nondistended. No guarding. MUSCULOSKELETAL: Extremities without clubbing, cyanosis, or edema. No obvious deformities. Positive bruit and thrill left forearm AV graft NEUROLOGICAL: Alert and oriented. RASS 0. No gross focal/sensory deficits. Does not follow commands A/P Problem List: (1) Non-compliance ICD Code: Z91.19 - Patient's noncompliance with other medical treatment and regimen Status: Chronic (2) Hypertension ICD Code: I10 - Essential (primary) hypertension Status: Chronic (3) Diabetes mellitus ICD Code: E11.9 - Type 2 diabetes mellitus without complications Status: Chronic (4) Altered mental status ICD Code: R41.82 - Altered mental status, unspecified Status: Chronic (5) ESRD (end stage renal disease) ICD Code: N18.6 - End stage renal disease Status: Resolved (6) Anemia ICD Code: D64.9 - Anemia, unspecified Status: Acute (7) Encephalopathy ICD Code: G93.40 - Encephalopathy, unspecified Assessment and Plan This is a 56-year-old female with chronic end-stage renal disease, dialysis dependent that missed dialysis, approximately 5-7 days, now presents with altered mental status. The patient is currently lethargic, encephalopathic and hypertensive. Neurologic: Metabolic encephalopathy Neurochecks per ICU protocol Avoid Long-acting sedatives Tylenol 150 mg every 6 hours when necessary for pain and/or temperature greater than 100.5 CT brain- no acute abnormality, chronic stable encephalomalacia Per family report the patient's baseline mental status is GCS14 Respiratory: Maintain O2 sat greater than 92% Right O2 via nasal cannula 1-4 L/m Duo nebs every 4 hours when necessary for wheezing Maintain head of bed greater than 30 patient is at risk currently for aspiration Monitor closely patient is at risk for intubation for airway protection secondary to altered status Cardiovascular: Hypertensive urgency-resolved BP 211/107 Hydralazine 20 mg every 4 hoursfor SBP > 160mmHg Labetalol 10 mg every 6 hours for SBP > 180mmHg Patient's antihypertensive medications resumed Initial troponin 0.82 most likely secondary to end-stage renal failure Renal: ESRD Nephrology consulted- Dr. Freedman Hemodialysis schedule per Nephrology-5 L removed on 02/25/17 -- Strict I/Os FEN/GI: Electrolyte derangement Begin Renal diet Replete electrolytes per nephrology Bedside swallow- successful Heme/ID: Anemia of chronic disease Monitor CBC Endocrine: Glucose monitoring per ICU protocol -- SSI Prophylaxis: GI Prophylaxis Famotidine BID DVT Prophylaxis -- SCDs Heparin subcutaneous Q 12 h Lines: Peripheral IVs 2 providing adequate access. Central line if indicated. Problem Qualifiers (1) Diabetes mellitus: (2) Altered mental status: Qualified Codes: R41.0 - Disorientation, unspecified (3) Anemia: Annabella Glaser MD Feb 27, 2017 08:47
[2017-02-27] MEDS: DOCUSATE SODIUM 50 MG/SENNA 8.6 MG TAB PO SCH ×2 (09:00→20:35)
[2017-02-27] MEDS: CARVEDILOL 12.5 MG TAB PO SCH ×2 (09:00→20:35)
[2017-02-27] MEDS: NIFEdipine 60 MG SUSTAINED RELEASE TAB PO SCH ×2 (09:00→20:35)
[2017-02-27] MEDS: FAMOTIDINE 20 MG/2 ML VIAL IV PUSH SCH (09:00)
[2017-02-27] MEDS: glyBURIDE 5 MG TAB PO SCH (09:00)
[2017-02-27] MEDS: SEVELAMER CARBONATE 800 MG TAB PO SCH ×3 (09:00→17:26)
[2017-02-27] MEDS: cloNIDine HCL 0.2 MG TAB PO SCH ×2 (09:00→20:35)
--- NOTE | 2017-02-27 10:39 | HHI.NPPN ---
Subjective History of Present Illness Hx of ESRD, Non compliance, AMS Review of Systems General Constitutional: Fatigue Objective Data Data Vital Signs Date Time Temp Pulse Resp B/P (MAP) Pulse Ox O2 Delivery O2 Flow Rate FiO2 02/27/17 06:07 98.0 70 19 171/19 (69) 94 02/27/17 04:00 69 02/27/17 01:49 98.4 66 19 182/83 (116) 92 02/27/17 00:35 73 157/80 (105) 02/27/17 00:00 73 02/26/17 21:11 97.8 73 19 160/81 (107) 92 02/26/17 14:00 65 02/26/17 13:00 71 22 181/84 (116) 94 02/26/17 12:00 65 02/26/17 12:00 98.7 65 20 160/123 (135) 96 -: 02/25/17 1410 02/26/17 0801 Physical Exam General Appearance: Well Developed, Well Nourished Neck Neck Exam: Neck Supple Pulmonary Resp Exam: Clear Bilaterally, Breath Sounds Equal Cardiology CV Exam: Regular, Normal Sinus Rhythm Gastrointestinal/Abdomen GI Exam: Soft, Non-Tender, Bowel Sounds Present Extremeties Extremities Exam: No Edema Neurologic Neuro Exam: Alert Assessment/Plan Problem List: (1) ESRD (end stage renal disease) ICD Codes: N18.6 - End stage renal disease Status: Resolved Plan: She is on hemodialysis hemodialysis proceedings noted UF 3 L K 2 tolerating it well continue supportive care patient with AMS (2) Altered mental status ICD Codes: R41.82 - Altered mental status, unspecified Status: Chronic Plan: Patient has uremia continue to monitor (3) Encephalopathy ICD Codes: G93.40 - Encephalopathy, unspecified Plan: Due to renal failure and metabolic (4) Diabetes mellitus ICD Codes: E11.9 - Type 2 diabetes mellitus without complications Status: Chronic Plan: Resume diet (5) Hypercalcemia ICD Codes: E83.52 - Hypercalcemia Status: Acute Plan: Unclear etiology I will order parathyroid hormone and vitamin D 25 level (6) Hyperkalemia ICD Codes: E87.5 - Hyperkalemia Status: Acute Plan: Due to renal failure (7) Hypertensive urgency ICD Codes: I16.0 - Hypertensive urgency Status: Acute Plan: Resume outpatient blood pressure medication Problem Qualifiers (1) Altered mental status: Qualified Codes: R41.0 - Disorientation, unspecified (2) Diabetes mellitus: Sylvain Freedman MD Feb 27, 2017 10:39
[2017-02-27] MEDS: ASPIRIN EC 81 MG TABEC PO SCH (13:05)
[2017-02-27] MEDS: FAMOTIDINE 20 MG TAB PO SCH ×2 (13:06→21:00)
[2017-02-27] MEDS: CYANOCOBALAMIN 1,000 MCG TAB PO SCH (13:09)
[2017-02-27] MEDS: LORazepam 2 MG/ML VIAL IV PUSH PRN (17:47)
[2017-02-27 18:22] LABS: BICARBONATE 31.6 MEQ/L (21.0-32.0); CALCIUM 10.9 MG/DL (8.5-10.1); CREATININE 8.21 MG/DL (0.50-1.00)
[2017-02-27] MEDS: ALPRAZolam 0.25 MG TAB PO PRN (20:35)
[2017-02-28] VITALS (7 sets, daily range): BP systolic 101–222; BP diastolic 56–115; PULSE 62–74; RESP 19–20; TEMP 97.7–99.2; O2SAT 91–99
[2017-02-28] MEDS ORDERED: NITROGLYCERIN 2% OINT 1 GM PACKET TOPICAL ONE (01:00)
[2017-02-28] MEDS ORDERED: METOPROLOL TARTRATE 50 MG TAB PO ONE (03:00)
[2017-02-28] MEDS: LORazepam 2 MG/ML VIAL IV PUSH PRN ×2 (03:53→13:23)
[2017-02-28] MEDS: CHLORHEXIDINE GLUCONATE 2 % 1 PACK (2 CLOTHS) TOP SCH (04:00)
[2017-02-28] MEDS: cloNIDine HCL 0.1 MG TAB PO PRN (06:18)
[2017-02-28] MEDS: INSULIN ASPART SUPPLEMENTAL SCALE SQ SCH ×4 (08:00→20:53)
[2017-02-28 08:39] LABS: AUTOMATED NEUTROPHIL # 4.1 TH/MM3 (1.8-7.7); BASOPHIL # 0.1 TH/MM3 (0-0.2); BASOPHIL % 1.6 % (0.0-2.0); EOSINOPHIL # 0.3 TH/MM3 (0-0.4); EOSINOPHIL % 4.4 % (0.0-4.0); HEMATOCRIT 37.7 % (35.0-46.0); HEMOGLOBIN 12.8 GM/DL (11.6-15.3); LYMPH % 19.8 % (9.0-44.0); LYMPHOCYTE # 1.3 TH/MM3 (1.0-4.8); MEAN CELL VOLUME 93.1 FL (80.0-100.0); MEAN CORPUSCULAR HEMOGLOBIN 31.5 PG (27.0-34.0); MEAN CORPUSCULAR HGB CONC 33.8 % (32.0-36.0); MEAN PLATELET VOLUME 7.9 FL (7.0-11.0); MONOCYTE # 0.9 TH/MM3 (0-0.9); NEUT % 61.2 % (16.0-70.0); PLATELET COUNT 296 TH/MM3 (150-450); RED BLOOD COUNT 4.05 MIL/MM3 (4.00-5.30); WHITE BLOOD COUNT 6.7 TH/MM3 (4.0-11.0)
[2017-02-28] MEDS: HEPARIN SODIUM - SQ 10,000 UNITS/ML VIAL SQ SCH ×2 (08:39→20:52)
[2017-02-28] MEDS: CARVEDILOL 12.5 MG TAB PO SCH ×2 (08:40→20:52)
[2017-02-28] MEDS: SEVELAMER CARBONATE 800 MG TAB PO SCH ×3 (08:40→17:44)
[2017-02-28] MEDS: CYANOCOBALAMIN 1,000 MCG TAB PO SCH (08:40)
[2017-02-28] MEDS: NIFEdipine 60 MG SUSTAINED RELEASE TAB PO SCH ×2 (08:40→20:53)
[2017-02-28] MEDS: ASPIRIN EC 81 MG TABEC PO SCH (08:40)
[2017-02-28] MEDS: glyBURIDE 5 MG TAB PO SCH (08:40)
[2017-02-28] MEDS: DOCUSATE SODIUM 50 MG/SENNA 8.6 MG TAB PO SCH ×2 (08:40→20:52)
[2017-02-28] MEDS: cloNIDine HCL 0.2 MG TAB PO SCH ×2 (08:40→20:52)
[2017-02-28] MEDS: FAMOTIDINE 20 MG TAB PO SCH ×2 (08:41→20:52)
[2017-02-28] MEDS: SODIUM CHLORIDE 0.9% FLUSH 10 ML FLUSH IV FLUSH SCH ×2 (09:00→20:52)
[2017-02-28 09:08] LABS: BICARBONATE 29.7 MEQ/L (21.0-32.0); CREATININE 9.76 MG/DL (0.50-1.00)
--- NOTE | 2017-02-28 10:17 | HHI.PR ---
Subjective Remarks Follow-up encephalopathy, hypertensive urgency, end-stage renal disease. The patient remains confused. No events reported by nursing. Objective Vitals Vital Signs Date Time Temp Pulse Resp B/P (MAP) Pulse Ox O2 Delivery O2 Flow Rate FiO2 02/28/17 09:40 93 Nasal Cannula 2.00 02/28/17 08:25 98.6 73 20 209/108 (141) 94 02/28/17 00:25 97.7 72 19 205/76 (119) 92 02/27/17 20:00 97.3 98 18 228/98 (141) 92 226/98 (140) 02/27/17 16:19 74 02/27/17 16:00 97.5 77 20 132/74 (93) 99 02/27/17 12:00 96.6 73 18 136/82 (100) 96 I/O 02/27/17 02/27/17 02/27/17 02/28/17 02/28/17 02/28/17 07:00 15:00 23:00 07:00 15:00 23:00 Output Total 3500 ml Balance -3500 ml Hemodialysis 3500 ml # Voids 0 1 Result Diagram: 02/28/17 0815 02/28/17 0815 Imaging Last Impressions Head CT 02/25/17 05 Signed Impressions: Service Date/Time: Saturday, February 25, 2017 06:01 - CONCLUSION: 1. Motion degraded exam. 2. Stable encephalomalacia in the left parietal lobe and chronic small vessel ischemic change. 3. No acute intracranial abnormality. Navneet Gray Jr., MD Chest X-Ray 02/25/17515 Signed Impressions: Service Date/Time: Saturday, February 25, 2017 05:36 - CONCLUSION: Mild bibasilar consolidation and small left effusion. Navneet Gray Jr., MD Objective Remarks General: Obese female in no acute distress. Heart: Regular rate and rhythm. No murmur. Lungs: Clear to auscultation bilaterally. No wheezes, rales, or rhonchi. Breathing is nonlabored. Abdomen: Soft, nontender, nondistended. Extremities: No lower extremity edema. SCDs. Psych: Sleeping, but awakens easily. She does not answer questions. Procedures None Urinary Catheter: No Vascular Central Line Catheter: No A/P Problem List: (1) Non-compliance ICD Code: Z91.19 - Patient's noncompliance with other medical treatment and regimen Status: Chronic (2) Hypertension ICD Code: I10 - Essential (primary) hypertension Status: Chronic (3) Diabetes mellitus ICD Code: E11.9 - Type 2 diabetes mellitus without complications Status: Chronic (4) Altered mental status ICD Code: R41.82 - Altered mental status, unspecified Status: Chronic (5) ESRD (end stage renal disease) ICD Code: N18.6 - End stage renal disease Status: Resolved (6) Anemia ICD Code: D64.9 - Anemia, unspecified Status: Acute (7) Encephalopathy ICD Code: G93.40 - Encephalopathy, unspecified Assessment and Plan 1. Metabolic encephalopathy: Patient remains confused. CT of brain shows no acute abnormality, but shows chronic stable encephalomalacia. 2. Hypertensive urgency: Blood pressure significantly elevated again overnight. Add hydralazine. Continue Procardia, carvedilol, clonidine. 3. Elevated troponin: [place] to be secondary to end-stage renal disease. 4. End-stage renal disease: Hemodialysis per nephrology. 5. Anemia of chronic disease: Monitor labs. Stable. 6. GI prophylaxis: Famotidine. 7. DVT prophylaxis: Heparin, SCDs. Problem Qualifiers (1) Diabetes mellitus: (2) Altered mental status: Qualified Codes: R41.0 - Disorientation, unspecified (3) Anemia: Best Henderson MD Feb 28, 2017 10:17
[2017-02-28] MEDS: hydrALAZINE HCL 10 MG TAB PO SCH ×2 (13:23→20:57)
--- NOTE | 2017-02-28 16:19 | HHI.NPPN ---
Subjective History of Present Illness Hx of ESRD, Non compliance, AMS Review of Systems General Constitutional: Fatigue Objective Data Data Vital Signs Date Time Temp Pulse Resp B/P (MAP) Pulse Ox O2 Delivery O2 Flow Rate FiO2 02/28/17 12:03 98.4 62 20 173/89 (117) 92 02/28/17 09:40 93 Nasal Cannula 2.00 02/28/17 08:25 98.6 73 20 209/108 (141) 94 02/28/17 08:00 66 02/28/17 00:25 97.7 72 19 205/76 (119) 92 02/27/17 20:00 97.3 98 18 228/98 (141) 92 226/98 (140) 02/27/17 16:19 74 -: 02/28/17 0815 02/28/17 0815 Physical Exam General Appearance: Well Developed, Well Nourished Neck Neck Exam: Neck Supple Pulmonary Resp Exam: Clear Bilaterally, Breath Sounds Equal Cardiology CV Exam: Regular, Normal Sinus Rhythm Gastrointestinal/Abdomen GI Exam: Soft, Non-Tender, Bowel Sounds Present Extremeties Extremities Exam: No Edema Neurologic Neuro Exam: Alert Assessment/Plan Problem List: (1) ESRD (end stage renal disease) ICD Codes: N18.6 - End stage renal disease Status: Resolved Plan: She is on hemodialysis MWF schedule hypercalcemia again 11 Fosamax 35 mg once weekly added bed bound in restraints patient with AMS (2) Altered mental status ICD Codes: R41.82 - Altered mental status, unspecified Status: Chronic Plan: Patient has uremia continue to monitor (3) Encephalopathy ICD Codes: G93.40 - Encephalopathy, unspecified Plan: Due to renal failure and metabolic (4) Diabetes mellitus ICD Codes: E11.9 - Type 2 diabetes mellitus without complications Status: Chronic Plan: Resume diet (5) Hypercalcemia ICD Codes: E83.52 - Hypercalcemia Status: Acute Plan: Unclear etiology I will order parathyroid hormone and vitamin D 25 level (6) Hyperkalemia ICD Codes: E87.5 - Hyperkalemia Status: Acute Plan: Due to renal failure (7) Hypertensive urgency ICD Codes: I16.0 - Hypertensive urgency Status: Acute Plan: Resume outpatient blood pressure medication Problem Qualifiers (1) Altered mental status: Qualified Codes: R41.0 - Disorientation, unspecified (2) Diabetes mellitus: Sylvain Freedman MD Feb 28, 2017 16:19
[2017-02-28] MEDS: ALPRAZolam 0.25 MG TAB PO PRN (20:52)
[2017-03-01] VITALS (9 sets, daily range): BP systolic 159–195; BP diastolic 87–95; PULSE 59–70; RESP 18–20; TEMP 97.3–99.1; O2SAT 92–95
[2017-03-01] MEDS: CARVEDILOL 12.5 MG TAB PO SCH ×4 (00:30→20:25)
[2017-03-01] MEDS: hydrALAZINE HCL 25 MG TAB PO SCH ×4 (00:30→20:25)
[2017-03-01] MEDS: FAMOTIDINE 20 MG TAB PO SCH ×4 (00:30→20:25)
[2017-03-01] MEDS: NIFEdipine 60 MG SUSTAINED RELEASE TAB PO SCH ×4 (00:30→20:25)
[2017-03-01] MEDS: cloNIDine HCL 0.2 MG TAB PO SCH ×4 (00:30→20:25)
[2017-03-01] MEDS: CHLORHEXIDINE GLUCONATE 2 % 1 PACK (2 CLOTHS) TOP SCH (04:00)
[2017-03-01] MEDS: hydrALAZINE HCL 10 MG TAB PO SCH (06:13)
[2017-03-01] MEDS: INSULIN ASPART SUPPLEMENTAL SCALE SQ SCH ×4 (08:00→21:00)
[2017-03-01] MEDS ORDERED: ALENDRONATE SODIUM 70 MG TAB PO SCH ×2 (09:00)
[2017-03-01] MEDS: SEVELAMER CARBONATE 800 MG TAB PO SCH ×3 (10:02→17:58)
[2017-03-01] MEDS: glyBURIDE 5 MG TAB PO SCH (10:02)
[2017-03-01] MEDS: CYANOCOBALAMIN 1,000 MCG TAB PO SCH (10:02)
[2017-03-01] MEDS: DOCUSATE SODIUM 50 MG/SENNA 8.6 MG TAB PO SCH ×2 (10:02→19:51)
[2017-03-01] MEDS: ASPIRIN EC 81 MG TABEC PO SCH (10:02)
[2017-03-01] MEDS: HEPARIN SODIUM - SQ 10,000 UNITS/ML VIAL SQ SCH ×2 (10:03→19:50)
[2017-03-01] MEDS: SODIUM CHLORIDE 0.9% FLUSH 10 ML FLUSH IV FLUSH SCH ×2 (10:03→19:51)
[2017-03-01 10:24] LABS: BICARBONATE 29.5 MEQ/L (21.0-32.0); CALCIUM 10.8 MG/DL (8.5-10.1)
[2017-03-01 10:36] LABS: CREATININE 12.47 MG/DL (0.50-1.00)
[2017-03-01] MEDS ORDERED: hydrALAZINE HCL 10 MG TAB PO ONE (11:15)
--- NOTE | 2017-03-01 11:16 | HHI.PR ---
Subjective Remarks Follow up hypertension, encephalopathy. Patient is still confused. BP still elevated. Objective Vitals Vital Signs Date Time Temp Pulse Resp B/P (MAP) Pulse Ox O2 Delivery O2 Flow Rate FiO2 03/01/17 08:13 98.1 60 20 195/90 (125) 92 03/01/17 06:15 98.0 69 20 182/90 (120) 92 03/01/17 01:49 99.1 70 161/87 (111) 94 02/28/17 20:53 98.0 74 19 210/115 (146) 94 02/28/17 17:03 99.2 74 20 222/115 (150) 91 02/28/17 12:03 98.4 62 20 173/89 (117) 92 I/O 02/28/17 02/28/17 02/28/17 03/01/17 03/01/17 03/01/17 07:00 15:00 23:00 07:00 15:00 23:00 Intake Total 360 ml Balance 360 ml Intake Oral 360 ml # Voids 1 Result Diagram: 02/28/1715 03/01/17 0758 Imaging Last Impressions Head CT 02/25/17515 Signed Impressions: Service Date/Time: Saturday, February 25, 2017 06:01 - CONCLUSION: 1. Motion degraded exam. 2. Stable encephalomalacia in the left parietal lobe and chronic small vessel ischemic change. 3. No acute intracranial abnormality. Navneet Gray Jr., MD Chest X-Ray 02/25/17515 Signed Impressions: Service Date/Time: Saturday, February 25, 2017 05:36 - CONCLUSION: Mild bibasilar consolidation and small left effusion. Navneet Gray Jr., MD Objective Remarks General: Obese female in no acute distress. In soft restraints. Heart: Regular rate and rhythm. No murmur. Lungs: Clear to auscultation bilaterally. No wheezes, rales, or rhonchi. Breathing is nonlabored. Abdomen: Soft, nontender, nondistended. Extremities: No lower extremity edema. SCDs. Psych: Sleeping, but awakens easily. She answers some questions, but is confused. Procedures None Urinary Catheter: No Vascular Central Line Catheter: No A/P Problem List: (1) Non-compliance ICD Code: Z91.19 - Patient's noncompliance with other medical treatment and regimen Status: Chronic (2) Hypertension ICD Code: I10 - Essential (primary) hypertension Status: Chronic (3) Diabetes mellitus ICD Code: E11.9 - Type 2 diabetes mellitus without complications Status: Chronic (4) Altered mental status ICD Code: R41.82 - Altered mental status, unspecified Status: Chronic (5) ESRD (end stage renal disease) ICD Code: N18.6 - End stage renal disease Status: Resolved (6) Anemia ICD Code: D64.9 - Anemia, unspecified Status: Acute (7) Encephalopathy ICD Code: G93.40 - Encephalopathy, unspecified Assessment and Plan 1. Metabolic encephalopathy: Patient remains confused. CT of brain shows no acute abnormality, but shows chronic stable encephalomalacia. Consult neurology. 2. Hypertensive urgency: Blood pressure significantly elevated again overnight. Increase hydralazine. Continue Procardia, carvedilol, clonidine. 3. Elevated troponin: [place] to be secondary to end-stage renal disease. 4. End-stage renal disease: Hemodialysis per nephrology. 5. Anemia of chronic disease: Monitor labs. Stable. 6. GI prophylaxis: Famotidine. 7. DVT prophylaxis: Heparin, SCDs. Problem Qualifiers (1) Diabetes mellitus: (2) Altered mental status: Qualified Codes: R41.0 - Disorientation, unspecified (3) Anemia: Best Hendesron MD Mar 01, 2017 11:16
[2017-03-01] MEDS: ALPRAZolam 0.25 MG TAB PO PRN ×2 (11:45→19:50)
--- NOTE | 2017-03-01 16:23 | HHI.NPPN ---
Subjective History of Present Illness Hx of ESRD, Non compliance, AMS Review of Systems General Constitutional: Fatigue Objective Data Data 03/01/17 03/02/17 19:00 07:00 Intake Total 120 ml Output Total 0 ml Balance 120 ml Intake Oral 120 ml Output Urine Total 0 ml Vital Signs Date Time Temp Pulse Resp B/P (MAP) Pulse Ox O2 Delivery O2 Flow Rate FiO2 03/01/17 12:49 97.3 59 20 159/89 (112) 92 03/01/17 08:13 98.1 60 20 195/90 (125) 92 03/01/17 08:12 62 03/01/17 07:52 94 Nasal Cannula 2.00 03/01/17 06:15 98.0 69 20 182/90 (120) 92 03/01/17 01:49 99.1 70 161/87 (111) 94 02/28/17 20:53 98.0 74 19 210/115 (146) 94 02/28/17 17:03 99.2 74 20 222/115 (150) 91 -: 02/28/17 0815 03/01/17 0758 Physical Exam General Appearance: Well Developed, Well Nourished Neck Neck Exam: Neck Supple Pulmonary Resp Exam: Clear Bilaterally, Breath Sounds Equal Cardiology CV Exam: Regular, Normal Sinus Rhythm Gastrointestinal/Abdomen GI Exam: Soft, Non-Tender, Bowel Sounds Present Extremeties Extremities Exam: No Edema Neurologic Neuro Exam: Alert Assessment/Plan Problem List: (1) ESRD (end stage renal disease) ICD Codes: N18.6 - End stage renal disease Status: Resolved Plan: She is on hemodialysis MWF schedule hypercalcemia again 10.8 Fosamax 35 mg once but not given? bed bound in restraints patient with AMS (2) Altered mental status ICD Codes: R41.82 - Altered mental status, unspecified Status: Chronic Plan: Patient has uremia continue to monitor (3) Encephalopathy ICD Codes: G93.40 - Encephalopathy, unspecified Plan: Due to renal failure and metabolic (4) Diabetes mellitus ICD Codes: E11.9 - Type 2 diabetes mellitus without complications Status: Chronic Plan: Resume diet (5) Hypercalcemia ICD Codes: E83.52 - Hypercalcemia Status: Acute Plan: Unclear etiology I will order parathyroid hormone and vitamin D 25 level (6) Hyperkalemia ICD Codes: E87.5 - Hyperkalemia Status: Acute Plan: Due to renal failure (7) Hypertensive urgency ICD Codes: I16.0 - Hypertensive urgency Status: Acute Plan: Resume outpatient blood pressure medication Problem Qualifiers (1) Altered mental status: Qualified Codes: R41.0 - Disorientation, unspecified (2) Diabetes mellitus: Sylvain Freedman MD Mar 01, 2017 16:23
[2017-03-01] MEDS: LORazepam 2 MG/ML VIAL IV PUSH PRN ×2 (18:05→20:53)
[2017-03-02] VITALS (9 sets, daily range): BP systolic 145–207; BP diastolic 87–108; PULSE 64–73; RESP 19–20; TEMP 97.6–98.6; O2SAT 91–97
[2017-03-02] MEDS: ALPRAZolam 0.25 MG TAB PO PRN (00:33)
[2017-03-02] MEDS: CHLORHEXIDINE GLUCONATE 2 % 1 PACK (2 CLOTHS) TOP SCH (04:00)
[2017-03-02] MEDS: LORazepam 2 MG/ML VIAL IV PUSH PRN ×3 (04:42→17:29)
[2017-03-02] MEDS: hydrALAZINE HCL 25 MG TAB PO SCH ×4 (06:00→21:50)
[2017-03-02 07:46] LABS: AUTOMATED NEUTROPHIL # 4.9 TH/MM3 (1.8-7.7); BASOPHIL # 0.1 TH/MM3 (0-0.2); BASOPHIL % 1.4 % (0.0-2.0); EOSINOPHIL # 0.4 TH/MM3 (0-0.4); EOSINOPHIL % 5.5 % (0.0-4.0); HEMATOCRIT 37.1 % (35.0-46.0); HEMOGLOBIN 12.1 GM/DL (11.6-15.3); LYMPH % 21.8 % (9.0-44.0); LYMPHOCYTE # 1.7 TH/MM3 (1.0-4.8); MEAN CELL VOLUME 92.5 FL (80.0-100.0); MEAN CORPUSCULAR HEMOGLOBIN 30.3 PG (27.0-34.0); MEAN CORPUSCULAR HGB CONC 32.8 % (32.0-36.0); MEAN PLATELET VOLUME 8.3 FL (7.0-11.0); MONO % 9.5 % (0.0-8.0); MONOCYTE # 0.7 TH/MM3 (0-0.9); NEUT % 61.8 % (16.0-70.0); PLATELET COUNT 271 TH/MM3 (150-450); RED BLOOD COUNT 4.01 MIL/MM3 (4.00-5.30); RED CELL DISTRIBUTION WIDTH 14.9 % (11.6-17.2); WHITE BLOOD COUNT 7.9 TH/MM3 (4.0-11.0)
[2017-03-02] MEDS: INSULIN ASPART SUPPLEMENTAL SCALE SQ SCH ×4 (08:00→21:00)
[2017-03-02] MEDS: HEPARIN SODIUM - SQ 10,000 UNITS/ML VIAL SQ SCH ×3 (08:00→21:50)
[2017-03-02 08:06] LABS: BICARBONATE 28.2 MEQ/L (21.0-32.0); CALCIUM 10.5 MG/DL (8.5-10.1)
[2017-03-02 08:11] LABS: CREATININE 14.11 MG/DL (0.50-1.00)
[2017-03-02] MEDS: FAMOTIDINE 20 MG TAB PO SCH ×3 (09:00→21:50)
[2017-03-02] MEDS: ASPIRIN EC 81 MG TABEC PO SCH ×2 (09:00→12:02)
[2017-03-02] MEDS: cloNIDine HCL 0.2 MG TAB PO SCH ×3 (09:00→21:50)
[2017-03-02] MEDS: CYANOCOBALAMIN 1,000 MCG TAB PO SCH ×2 (09:00→12:03)
[2017-03-02] MEDS: SODIUM CHLORIDE 0.9% FLUSH 10 ML FLUSH IV FLUSH SCH ×2 (09:00→11:59)
[2017-03-02] MEDS: DOCUSATE SODIUM 50 MG/SENNA 8.6 MG TAB PO SCH ×3 (09:00→21:50)
[2017-03-02] MEDS: NIFEdipine 60 MG SUSTAINED RELEASE TAB PO SCH ×3 (09:00→21:50)
[2017-03-02] MEDS: SEVELAMER CARBONATE 800 MG TAB PO SCH ×5 (09:00→17:33)
[2017-03-02] MEDS: glyBURIDE 5 MG TAB PO SCH ×2 (09:00→12:03)
[2017-03-02] MEDS: CARVEDILOL 12.5 MG TAB PO SCH ×3 (09:00→21:49)
[2017-03-02] MEDS: GELATIN 12 MM/7 MM FOAM TOP PRN (09:51)
--- NOTE | 2017-03-02 11:27 | HHI.NPPN ---
Subjective History of Present Illness Hx of ESRD, Non compliance, AMS Review of Systems General Constitutional: Fatigue Objective Data Data Vital Signs Date Time Temp Pulse Resp B/P (MAP) Pulse Ox O2 Delivery O2 Flow Rate FiO2 03/02/17 08:24 98.6 66 20 199/95 (129) 93 03/02/17 07:20 92 21 03/02/17 06:49 97.6 68 19 179/90 (119) 94 03/02/17 00:24 98.2 65 20 207/102 (137) 95 03/01/17 20:45 97.5 65 18 173/95 (121) 03/01/17 17:33 92 Nasal Cannula 2.00 03/01/17 12:49 97.3 59 20 159/89 (112) 92 -: 03/02/17 0455 03/02/17 0455 Physical Exam General Appearance: Well Developed, Well Nourished Neck Neck Exam: Neck Supple Pulmonary Resp Exam: Clear Bilaterally, Breath Sounds Equal Cardiology CV Exam: Regular, Normal Sinus Rhythm Gastrointestinal/Abdomen GI Exam: Soft, Non-Tender, Bowel Sounds Present Extremeties Extremities Exam: No Edema Neurologic Neuro Exam: Alert Assessment/Plan Problem List: (1) ESRD (end stage renal disease) ICD Codes: N18.6 - End stage renal disease Status: Resolved Plan: She is on hemodialysis MWF schedule AMS seen at [facility] U[facility] 2.5 L remains confused bed bound in restraints patient with AMS Ca 10.5 Miacalcin spray ordered (2) Altered mental status ICD Codes: R41.82 - Altered mental status, unspecified Status: Chronic Plan: Patient has uremia continue to monitor (3) Encephalopathy ICD Codes: G93.40 - Encephalopathy, unspecified Plan: Due to renal failure and metabolic (4) Diabetes mellitus ICD Codes: E11.9 - Type 2 diabetes mellitus without complications Status: Chronic Plan: Resume diet (5) Hypercalcemia ICD Codes: E83.52 - Hypercalcemia Status: Acute Plan: Unclear etiology I will order parathyroid hormone and vitamin D 25 level (6) Hyperkalemia ICD Codes: E87.5 - Hyperkalemia Status: Acute Plan: Due to renal failure (7) Hypertensive urgency ICD Codes: I16.0 - Hypertensive urgency Status: Acute Plan: Resume outpatient blood pressure medication Problem Qualifiers (1) Altered mental status: Qualified Codes: R41.0 - Disorientation, unspecified (2) Diabetes mellitus: Sylvain Freedman MD Mar 02, 2017 11:27
[2017-03-02] MEDS ORDERED: cloNIDine HCL 0.1 MG/24 HR PATCH T-DERMAL SCH (13:00)
[2017-03-02] MEDS: CALCITONIN SALM 200 UNIT/SPRAY 3.7 ML BTLN NASAL SCH (13:00)
--- NOTE | 2017-03-02 13:06 | HHI.PR ---
Subjective Remarks Follow up hypertension, encephalopathy. Patient is more alert today, but remains confused. Reports pain, but is not specific about location/quality. Objective Vitals Vital Signs Date Time Temp Pulse Resp B/P (MAP) Pulse Ox O2 Delivery O2 Flow Rate FiO2 03/02/17 12:51 98.6 64 20 162/88 (112) 92 03/02/17 08:24 98.6 66 20 199/95 (129) 93 03/02/17 07:20 92 21 03/02/17 06:49 97.6 68 19 179/90 (119) 94 03/02/17 00:24 98.2 65 20 207/102 (137) 95 03/01/17 20:45 97.5 65 18 173/95 (121) 03/01/17 17:33 92 Nasal Cannula 2.00 I/O 03/01/17 03/01/17 03/01/17 03/02/17 03/02/17 03/02/17 07:00 15:00 23:00 07:00 15:00 23:00 Intake Total 120 ml Output Total 0 ml 2500 ml Balance 120 ml -2500 ml Intake Oral 120 ml Output Urine Total 0 ml Hemodialysis 2500 ml Result Diagram: 03/02/17 0455 03/02/17 0455 Imaging Last Impressions Head CT 02/25/17515 Signed Impressions: Service Date/Time: Saturday, February 25, 2017 06:01 - CONCLUSION: 1. Motion degraded exam. 2. Stable encephalomalacia in the left parietal lobe and chronic small vessel ischemic change. 3. No acute intracranial abnormality. Navneet Gray Jr., MD Chest X-Ray 02/25/17515 Signed Impressions: Service Date/Time: Saturday, February 25, 2017 05:36 - CONCLUSION: Mild bibasilar consolidation and small left effusion. Navneet Gray Jr., MD Objective Remarks General: Obese female in no acute distress. Heart: Regular rate and rhythm. No murmur. Lungs: Clear to auscultation bilaterally. No wheezes, rales, or rhonchi. Breathing is nonlabored. Abdomen: Soft, nontender, nondistended. Extremities: No lower extremity edema. SCDs. Psych: Alert, confused. Procedures None Urinary Catheter: No Vascular Central Line Catheter: No A/P Problem List: (1) Non-compliance ICD Code: Z91.19 - Patient's noncompliance with other medical treatment and regimen Status: Chronic (2) Hypertension ICD Code: I10 - Essential (primary) hypertension Status: Chronic (3) Diabetes mellitus ICD Code: E11.9 - Type 2 diabetes mellitus without complications Status: Chronic (4) Altered mental status ICD Code: R41.82 - Altered mental status, unspecified Status: Chronic (5) ESRD (end stage renal disease) ICD Code: N18.6 - End stage renal disease Status: Resolved (6) Anemia ICD Code: D64.9 - Anemia, unspecified Status: Acute (7) Encephalopathy ICD Code: G93.40 - Encephalopathy, unspecified Assessment and Plan 1. Metabolic encephalopathy: Patient remains confused. CT of brain shows no acute abnormality, but shows chronic stable encephalomalacia. 2. Hypertensive urgency: Blood pressure remains elevated. Patient did agree to take her meds today after returning from dialysis. Procardia, carvedilol, clonidine. 3. Elevated troponin: [place] to be secondary to end-stage renal disease. 4. End-stage renal disease: Hemodialysis per nephrology. 5. Anemia of chronic disease: Monitor labs. Stable. 6. GI prophylaxis: Famotidine. 7. DVT prophylaxis: Heparin, SCDs. Discussed with Dr. Price. Will transfer to med/psych unit. Discharge Planning Transfer to med/psych. Problem Qualifiers (1) Diabetes mellitus: (2) Altered mental status: Qualified Codes: R41.0 - Disorientation, unspecified (3) Anemia: Best Henderson MD Mar 02, 2017 13:06
[2017-03-02] MEDS ORDERED: HYDR-3799 PO (13:08)
--- NOTE | 2017-03-02 13:08 | HHI.DCPOC ---
Discharge Care Plan Diagnosis: (1) Encephalopathy (2) Diabetes mellitus (3) ESRD (end stage renal disease) (4) Hypertensive urgency Goals to Promote Your Health * To prevent worsening of your condition and complications * To maintain your health at the optimal level Directions to Meet Your Goals Take your medications as prescribed Follow your dietary instruction Follow activity as directed Keep your appointments as scheduled Take your immunizations and boosters as scheduled If your symptoms worsen call your PCP, if no PCP go to Urgent Care Center or Emergency Room Smoking is Dangerous to Your Health. Avoid second hand smoke Call the 24-hour hour crisis hotline for domestic abuse at Best Henderson MD Mar 02, 2017 13:08
--- NOTE | 2017-03-02 14:02 | PD.PSY.CON ---
Provisional Diagnosis Admission Date Feb 25, 2017 at 06:47 [place] I. Unspecified psychosis vs Delirium due to underlying medical conditions [place] II. Deferred History of Present Illness Service Psychiatry Consult Requested By Medical team Reason for Consult Severe agitation and combativeness Primary Care Physician Unknown HPI The patient is a is a 56-year-old white woman, domiciled with her , with a history of ESRD, hypertension, noncompliant with medications, who presented from via EMS for altered mental status. Per EMS, the patient was last dialyzed on Thursday. She was trying to get dialysis on Thursday however was unsuccessful. Her called 911 because she was confused and he was worried that she may need emergent dialysis. The patient is unable to give any history as she is confused. Initially admitted due to encephalopathy. Consulted to psychiatry due to agitation and aggressive behavior. Chart reviewed. Case discussed with nursing charge and primary medical team. On psychiatric evaluation today the patient is agitated, restless, disorganized, no making any sense. She persistently says helpe me, help me, but she is unable to follow directions and answer questions. As per nursing charge the patient has been combative, at times ballistic, difficult to handle in the medical floor. I have discussed with primary attending physician the potential need of transferring the patient to [facility] due to behavioral dysregulation.Try to get collateral information from her Bandar Patel , but unfortunately he did not bulk picker the phone. Past Family Social History Coded Allergies: No Known Allergies (Unverified Allergy, Unknown, 02/25/17) Active Scripts Pantoprazole (Protonix) 40 Mg Tab, 40 MG PO BID for Ulcer Prevention, #60 TAB 0 Refills Prov:Sun Melchor MD 06/21/16 Carvedilol (Coreg) 12.5 Mg Tab, 25 MG PO Q12HR, #60 TAB 1 Refill Prov:Yash Masters MD, R3 06/18/16 Clonidine (Clonidine) 0.2 Mg Tab, 0.2 MG PO BID for Blood Pressure Management, # 60 TAB 0 Refills Prov:Annabella Glaser MD 05/30/16 Nifedipine ER 24 HR (Nifedipine ER 24 HR) 60 Mg Tab, 60 MG PO BID for Blood Pressure Management, #60 TAB Prov:Annabella Glaser MD 05/30/[address] (Aspirin Adult Low Strength) 81 Mg Tabdr, 81 MG PO DAILY for antiplatelet, TAB 05/24/16 Cyanocobalamin (Vitamin B-12) 1,000 Mcg Tab, 1000 MCG PO DAILY for Nutritional Supplement, #1 BOTTLE 0 Refills 05/24/16 Glyburide (Glyburide) 5 Mg Tab, 5 MG PO DAILY for Blood Sugar Management, #30 TAB 0 Refills Take with meals at the same time each day 04/08/16 Sevelamer Carbonate (Renvela) 800 Mg Tab, 800 MG PO TID for Control phosphorous levels, #90 TAB 0 Refills Take with meals 04/08/16 Current Medications Medications (Trade) Dose Ordered Sig/Shaun Route Start Time Stop Time Status Last Admin (NS Flush) 2 ml UNSCH PRN IV FLUSH 02/25/17 06:45 02/27/17 01:45 (NS Flush) 2 ml BID IV FLUSH 02/25/17 09:00 03/01/17 19:51 (Tylenol) 650 mg Q6H PRN PO 02/25/17 06:45 (Pepcid) 10 mg Q12HR PO 02/25/17 09:00 03/02/17 12:02 (Zofran Inj) 4 mg Q6H PRN IV PUSH 02/25/17 06:45 (Duoneb Neb) 1 ampule Q4HR NEB PRN INH 02/25/17 06:45 (Heparin Inj) 5,000 units Q12H SQ 02/25/17 08:00 03/02/17 12:01 Miscellaneous Information 1 Q361D XX 02/25/17 06:45 (Chlorhexidine 2% Cloth) 3 pack Taper DAILY@04 TOP 02/26/17 04:00 02/22/18 03:59 02/26/17 04:00 (Chlorhexidine 2% Cloth) 3 pack UNSCH PRN TOP 02/25/17 06:45 ([place]-Colace) 1 tab BID PO 02/25/17 09:00 03/02/17 12:03 (Milk Of Magnesia Liq) 30 ml Q12H PRN PO 02/25/17 06:45 (Senokot) 17.2 mg Q12H PRN PO 02/25/17 06:45 (Dulcolax Supp) 10 mg DAILY PRN RECTAL 02/25/17 06:45 (Lactulose Liq) 30 ml DAILY PRN PO 02/25/17 06:45 (NovoLOG SUPPLEMENTAL SCALE) 1 ACHS SLIDING SCALE SQ 02/25/17 08:00 (D50w (Vial) Inj) 50 ml UNSCH PRN IV PUSH 02/25/17 07:00 (Glucagon Inj) 1 mg UNSCH PRN OTHER 02/25/17 07:00 Sodium Chloride 1,000 ml @ 0 mls/hr Q0M PRN OTHER 02/25/17 07:42 (Heparin Inj) 8,000 units UNSCH PRN IV FLUSH 02/25/17 07:45 Sodium Chloride 1,000 ml @ 200 mls/hr Q5H PRN IV 02/25/17 07:42 Sodium Chloride 1,000 ml @ 0 mls/hr Q0M PRN OTHER 02/25/17 07:42 (Mannitol Inj) 12.5 gm UNSCH PRN IV 02/25/17 07:45 Albumin Human 100 ml @ 60 mls/hr UNSCH PRN IV 02/25/17 07:45 (NS Flush) 5 ml UNSCH PRN IV FLUSH 02/25/17 07:45 (Heparin Inj) UNSCH PRN .XX 02/25/17 07:45 (Gentamicin (Dialysis) Inj) 20 mg UNSCH PRN OTHER 02/25/17 07:45 (Zofran Inj) 4 mg UNSCH PRN IV PUSH 02/25/17 07:45 (Tylenol) 650 mg UNSCH PRN PO 02/25/17 07:45 (Benadryl) 25 mg UNSCH PRN PO 02/25/17 07:45 02/26/17 05:37 (Nitrostat Sl) 0.4 mg UNSCH PRN SL 02/25/17 07:45 (Catapres) 0.1 mg UNSCH PRN PO 02/25/17 07:45 02/28/17 06:18 (Gelfoam 12 Mm/7 Mm Top) 1 foam UNSCH PRN TOP 02/25/17 07:45 03/02/17 09:51 (Xanax) 0.25 mg Q8H PRN PO 02/25/17 14:15 03/02/17 00:33 (Ecotrin Ec) 81 mg DAILY PO 02/26/17 09:00 03/02/17 12:02 (Coreg) 25 mg Q12HR PO 02/25/17 14:15 03/02/17 12:03 (Catapres) 0.2 mg BID PO 02/25/17 14:15 03/02/17 12:02 (Vitamin B12) 1,000 mcg DAILY PO 02/26/17 09:00 03/02/17 12:03 (Diabeta) 5 mg DAILY PO 02/26/17 09:00 03/02/17 12:03 (Procardia Xl) 60 mg BID PO 02/25/17 14:15 03/02/17 12:02 (Renvela) 800 mg TID PO 02/25/17 18:00 03/02/17 12:02 (Ativan Inj) 1 mg Q3H PRN IV PUSH 02/27/17 01:45 03/02/17 04:42 (Apresoline) 25 mg Q8HR PO 03/01/17 14:00 03/01/17 00:30 (Haldol Inj) 5 mg Q8HR PRN IM 03/02/17 14:00 UNV (SEROquel) 25 mg BID@09,12 PO 03/03/17 09:00 UNV Physical Exam Vital Signs Vital Signs Date Time Temp Pulse Resp B/P (MAP) Pulse Ox O2 Delivery O2 Flow Rate FiO2 03/02/17 12:51 98.6 64 20 162/88 (112) 92 03/02/17 07:20 21 03/01/17 17:33 Nasal Cannula 2.00 I/O 03/02/17 03/02/17 03/03/17 08:00 16:00 00:00 Output Total 2500 ml Balance -2500 ml Lab Results Test 03/02/17 04:55 White Blood Count 7.9 TH/MM3 Red Blood Count 4.01 MIL/MM3 Hemoglobin 12.1 GM/DL Hematocrit 37.1 % Mean Corpuscular Volume 92.5 FL Mean Corpuscular Hemoglobin 30.3 PG Mean Corpuscular Hemoglobin Concent 32.8 % Red Cell Distribution Width 14.9 % Platelet Count 271 TH/MM3 Mean Platelet Volume 8.3 FL Neutrophils (%) (Auto) 61.8 % Lymphocytes (%) (Auto) 21.8 % Monocytes (%) (Auto) 9.5 % Eosinophils (%) (Auto) 5.5 % Basophils (%) (Auto) 1.4 % Neutrophils # (Auto) 4.9 TH/MM3 Lymphocytes # (Auto) 1.7 TH/MM3 Monocytes # (Auto) 0.7 TH/MM3 Eosinophils # (Auto) 0.4 TH/MM3 Basophils # (Auto) 0.1 TH/MM3 CBC Comment DIFF FINAL Differential Comment Blood Urea Nitrogen 64 MG/DL Creatinine 14.11 MG/DL Random Glucose 108 MG/DL Calcium Level 10.5 MG/DL Sodium Level 134 MEQ/L Potassium Level 4.9 MEQ/L Chloride Level 95 MEQ/L Carbon Dioxide Level 28.2 MEQ/L Anion Gap 11 MEQ/L Estimat Glomerular Filtration Rate 3 ML/MIN Mental Status Examination Appearance: Disheveled, Malodorous Consciousness: Clouded Orientation: Person Motor Activity: Abnormal gait Speech: Incoherent Language: Perseveration Fund of Knowledge: Inadequate Attention and Concentration: Inadequate Memory: Impaired Mood: Angry, Irritable Affect: Irritable Thought Process & Associations: Disorganized Thought Content: Racing thoughts Hallucination Type: None Delusion Type: None Suicidal Ideation: No Suicidal Plan: No Suicidal Intention: No Homicidal Ideation: No Homicidal Plan: No Homicidal Intention: No Insight: Poor Judgment: Poor Assessment & Plan Problem List: (1) Delirium due to another medical condition ICD Codes: F05 - Delirium due to known physiological condition Assessment & Plan: On psychiatric evaluation patient is agitated, restless, disorganized. As per nursing charge the patient has been combative, ballistic, very difficult to redirect and handling the medical floor. As per conversation with attending physician, the patient is now medically clear but she persist in her psychosis. We have discussed that possibility of transferring the patient to [facility] to treat her psychosis and behavioral dysregulation. I will start Seroquel 25 mg twice a day for psychosis, will order Haldol 5 mg every 8 hours IM when necessary aggressive behavior and agitation. I will follow up. Assessment & Plan Estimated LOS: Michael Hatch MD Mar 02, 2017 14:02
--- NOTE | 2017-03-02 20:24 | MB ---
cc: EVELINE VARGAS DATE OF CONSULTATION: 03/02/2017 REASON FOR CONSULTATION: Mental status change. HISTORY OF PRESENT ILLNESS Ms. Patel is a 56 year-old female with end-stage renal disease. She was on dialysis, apparently missed several dialysis therapies and became very confused and disoriented. She was brought to the hospital. She has had no focal deficits, no seizure-like activity. PAST MEDICAL HISTORY: 1. End-stage renal disease. 2. Hypertension. 3. Coronary artery disease. 4. Stroke in the past. 5. Congestive heart failure. 6. Anemia. SOCIAL HISTORY No alcohol abuse. No tobacco use. MEDICATIONS AT HOME: 1. Protonix. 2. Coreg. 3. Clonidine 4. Nifedipine. 5. Aspirin. 6. Vitamin B12. 7. Glyburide. 8. Renvela. NEUROLOGICAL EXAMINATION: VITAL SIGNS: Blood pressure is 188/98, pulse 67, respiratory rate 20, temperature 98 degrees. Higher cortical function: She is lethargic, disoriented to date and place. She has quite a bit of confusion. She follows only simple commands intermittently. Cranial nerves are intact. Motor exam, there is no focal deficit. She has generalized weakness but no focal weakness. Reflexes 2+ symmetric. CT scan of the brain shows encephalomalacia left parietal lobe. LABORATORY DATA White count is 7900, hemoglobin 12, hematocrit 37%, platelets 271,000. Sodium is 134, potassium 4.9, chloride 95, CO2 28, the BUN is 64, creatinine 14, glucose 108. IMPRESSION Metabolic encephalopathy probably from uremic encephalopathy. MD GONZÁLEZ Barr/EMILIA /6:51 PM /8:05 PM
[2017-03-02] MEDS: cloNIDine HCL 0.1 MG TAB PO PRN (23:04)
[2017-03-03] VITALS (8 sets, daily range): BP systolic 145–185; BP diastolic 84–99; PULSE 54–66; RESP 17–22; TEMP 97.3–98.2; O2SAT 18–98
[2017-03-03] MEDS: CHLORHEXIDINE GLUCONATE 2 % 1 PACK (2 CLOTHS) TOP SCH (04:00)
[2017-03-03] MEDS: hydrALAZINE HCL 25 MG TAB PO SCH ×3 (06:15→21:50)
[2017-03-03] MEDS: HEPARIN SODIUM - SQ 10,000 UNITS/ML VIAL SQ SCH ×2 (08:00→21:51)
[2017-03-03] MEDS: INSULIN ASPART SUPPLEMENTAL SCALE SQ SCH ×4 (08:00→21:00)
[2017-03-03] MEDS: SODIUM CHLORIDE 0.9% FLUSH 10 ML FLUSH IV FLUSH SCH ×2 (09:00→21:50)
[2017-03-03] MEDS: FAMOTIDINE 20 MG TAB PO SCH ×2 (09:00→21:50)
[2017-03-03] MEDS: CALCITONIN SALM 200 UNIT/SPRAY 3.7 ML BTLN NASAL SCH (09:00)
[2017-03-03] MEDS: CARVEDILOL 12.5 MG TAB PO SCH ×2 (09:00→21:49)
[2017-03-03] MEDS: QUEtiapine FUMARATE 25 MG TAB PO SCH ×2 (09:00→12:00)
[2017-03-03] MEDS: DOCUSATE SODIUM 50 MG/SENNA 8.6 MG TAB PO SCH ×2 (09:00→21:49)
[2017-03-03] MEDS: NIFEdipine 60 MG SUSTAINED RELEASE TAB PO SCH ×2 (09:00→21:50)
[2017-03-03] MEDS: SEVELAMER CARBONATE 800 MG TAB PO SCH ×3 (09:00→18:00)
--- NOTE | 2017-03-03 09:00 | HHI.PR ---
Subjective Remarks Called by nurse due to worsening mental status. Patient has become very lethargic. She responds only to sternal rub. She does not follow commands or answer questions. Objective Vitals Vital Signs Date Time Temp Pulse Resp B/P (MAP) Pulse Ox O2 Delivery O2 Flow Rate FiO2 03/03/17 06:43 62 18 146/86 (106) 94 03/03/17 06:39 97.3 62 182/97 (125) 95 03/03/17 00:00 98.1 66 17 145/87 (106) 94 03/03/17 00:00 61 03/02/17 23:59 98.1 66 20 145/87 (106) 96 03/02/17 23:00 98.2 64 20 184/101 (128) 97 03/02/17 20:00 73 03/02/17 20:00 98.3 69 20 180/108 (132) 91 03/02/17 19:28 21 03/02/17 16:52 98.3 67 20 188/98 (128) 95 03/02/17 12:51 98.6 64 20 162/88 (112) 92 I/O 03/02/17 03/02/17 03/02/17 03/03/17 03/03/17 03/03/17 06:59 14:59 22:59 06:59 14:59 22:59 Intake Total 120 ml Output Total 2500 ml Balance -2500 ml 120 ml Intake Oral 120 ml Hemodialysis 2500 ml # Voids 1 # Bowel Movements 1 Result Diagram: 03/02/17 0455 03/02/17 0455 Imaging Last Impressions Head CT 02/25/17515 Signed Impressions: Service Date/Time: Saturday, February 25, 2017 06:01 - CONCLUSION: 1. Motion degraded exam. 2. Stable encephalomalacia in the left parietal lobe and chronic small vessel ischemic change. 3. No acute intracranial abnormality. Navneet Gray Jr., MD Chest X-Ray 02/25/17515 Signed Impressions: Service Date/Time: Saturday, February 25, 2017 05:36 - CONCLUSION: Mild bibasilar consolidation and small left effusion. Navneet Gray Jr., MD Objective Remarks General: Obese female. Heart: Regular rate and rhythm. No murmur. Lungs: Clear to auscultation bilaterally. No wheezes, rales, or rhonchi. Breathing is nonlabored. Abdomen: Soft, nontender, nondistended. Extremities: No lower extremity edema. SCDs. Psych: Lethargic. Responds to sternal rub. Does not follow commands or answer questions. Procedures None Urinary Catheter: No Vascular Central Line Catheter: No A/P Problem List: (1) Non-compliance ICD Code: Z91.19 - Patient's noncompliance with other medical treatment and regimen Status: Chronic (2) Hypertension ICD Code: I10 - Essential (primary) hypertension Status: Chronic (3) Diabetes mellitus ICD Code: E11.9 - Type 2 diabetes mellitus without complications Status: Chronic (4) Altered mental status ICD Code: R41.82 - Altered mental status, unspecified Status: Chronic (5) ESRD (end stage renal disease) ICD Code: N18.6 - End stage renal disease Status: Resolved (6) Anemia ICD Code: D64.9 - Anemia, unspecified Status: Acute (7) Encephalopathy ICD Code: G93.40 - Encephalopathy, unspecified Assessment and Plan 1. Metabolic encephalopathy: Patient is much more lethargic today. CT of brain done on admission shows no acute abnormality, but shows chronic stable encephalomalacia. Check stat head CT. 2. Hypertensive urgency: Patient is unable to take her blood pressure medications today due to lethargy. Will consider Catapres patch if necessary. 3. Elevated troponin: [place] to be secondary to end-stage renal disease. 4. End-stage renal disease: Hemodialysis per nephrology. 5. Anemia of chronic disease: Labs are pending today. 6. GI prophylaxis: Famotidine. 7. DVT prophylaxis: Heparin, SCDs. Discussed with Dr. Price. Problem Qualifiers (1) Diabetes mellitus: (2) Altered mental status: Qualified Codes: R41.0 - Disorientation, unspecified (3) Anemia: Best Henderson MD Mar 03, 2017 09:00
--- NOTE | 2017-03-03 09:42 | RADRPT ---
EXAM DATE/TIME: 03/03/2017 09:15 [facility] COMPARISON: CT BRAIN W/O CONTRAST, February 25, 2017, 6:01. INDICATIONS : Altered mental status. RADIATION DOSE: 56.37 CTDIvol (mGy) MEDICAL HISTORY : Cerebrovascular disease. Cardiovascular disease Renal failure, chronic.Hypertension. SURGICAL HISTORY : None. ENCOUNTER: Initial ACUITY: 1 day PAIN SCALE: Non-responsive LOCATION: cranial TECHNIQUE: Multiple contiguous axial images were obtained of the head. Using automated exposure control and adj ustment of the mA and/or kV according to patient size, radiation dose was kept as low as reasonably a chievable to obtain optimal diagnostic quality images. DICOM format image data is available electro nically for review and comparison. FINDINGS: The study is degraded by motion artifact. CEREBRUM: There is diffuse mild to moderate atrophic changes again noted with patchy periventricular white siddharth er lucencies characteristic of chronic small vessel ischemic change. There is a focal area of encepha lomalacia again noted involving the left parietal lobe. A small lacunar infarct is again noted involv ing the right basal ganglia. No evidence of midline shift, mass lesion, hemorrhage or acute infarctio n. No extra-axial fluid collections are seen. POSTERIOR FOSSA: The cerebellum and brainstem are intact. The 4th ventricle is midline. The cerebellopontine angle i s unremarkable. EXTRACRANIAL: The visualized portion of the orbits is intact. SKULL: The calvaria is intact. No evidence of skull fracture. CONCLUSION: 1. Suboptimal study secondary to motion artifact. 2. Stable focal area of encephalomalacia in the left parietal lobe. 3. Atrophy and chronic small vessel ischemic change again noted. There is a small stable lacunar infa rct again noted in the right basal ganglia. 4. No acute hemorrhage or mass effect. Truong Robledo MD on March 03, 2017 at 9:37 Board Certified Radiologist. This report was verified electronically.
[2017-03-03] MEDS: cloNIDine HCL 0.1 MG/24 HR PATCH T-DERMAL SCH ×3 (11:00→11:34)
[2017-03-03 11:25] LABS: AUTOMATED NEUTROPHIL # 3.6 TH/MM3 (1.8-7.7); BASOPHIL # 0.1 TH/MM3 (0-0.2); BASOPHIL % 1.6 % (0.0-2.0); EOSINOPHIL # 0.3 TH/MM3 (0-0.4); EOSINOPHIL % 4.4 % (0.0-4.0); HEMATOCRIT 40.1 % (35.0-46.0); HEMOGLOBIN 13.4 GM/DL (11.6-15.3); LYMPH % 21.8 % (9.0-44.0); LYMPHOCYTE # 1.3 TH/MM3 (1.0-4.8); MEAN CELL VOLUME 92.6 FL (80.0-100.0); MEAN CORPUSCULAR HEMOGLOBIN 30.9 PG (27.0-34.0); MEAN CORPUSCULAR HGB CONC 33.4 % (32.0-36.0); MEAN PLATELET VOLUME 8.2 FL (7.0-11.0); MONO % 10.7 % (0.0-8.0); MONOCYTE # 0.6 TH/MM3 (0-0.9); NEUT % 61.5 % (16.0-70.0); PLATELET COUNT 268 TH/MM3 (150-450); RED BLOOD COUNT 4.33 MIL/MM3 (4.00-5.30); WHITE BLOOD COUNT 5.8 TH/MM3 (4.0-11.0)
[2017-03-03 11:53] LABS: BICARBONATE 31.1 MEQ/L (21.0-32.0); CALCIUM 10.6 MG/DL (8.5-10.1)
[2017-03-03 12:01] LABS: CREATININE 11.89 MG/DL (0.50-1.00)
--- NOTE | 2017-03-03 13:30 | HHI.PYPN ---
Subjective Remarks The patient was seen today for psychiatric reevaluation. Documentation reviewed. Case was personal discussed with primary attending and nursing charge. she was found sleeping, very lethargic, very engageable in a conversation. In spite of multiple attempts patient would voice a simple answer I will go back to sleep. Review of Systems Except as stated in HPI: all other systems reviewed are Neg Mental Status Examination Appearance: Disheveled, Malodorous Consciousness: Clouded Orientation: Person Motor Activity: Abnormal gait Speech: Incoherent Language: Perseveration Fund of Knowledge: Inadequate Attention and Concentration: Inadequate Memory: Impaired Mood: Angry, Irritable Affect: Irritable Thought Process & Associations: Disorganized Thought Content: Racing thoughts Hallucination Type: None Delusion Type: None Suicidal Ideation: No Suicidal Plan: No Suicidal Intention: No Homicidal Ideation: No Homicidal Plan: No Homicidal Intention: No Insight: Poor Judgment: Poor Results Labs Test 03/03/17 10:53 White Blood Count 5.8 TH/MM3 Red Blood Count 4.33 MIL/MM3 Hemoglobin 13.4 GM/DL Hematocrit 40.1 % Mean Corpuscular Volume 92.6 FL Mean Corpuscular Hemoglobin 30.9 PG Mean Corpuscular Hemoglobin Concent 33.4 % Red Cell Distribution Width 15.0 % Platelet Count 268 TH/MM3 Mean Platelet Volume 8.2 FL Neutrophils (%) (Auto) 61.5 % Lymphocytes (%) (Auto) 21.8 % Monocytes (%) (Auto) 10.7 % Eosinophils (%) (Auto) 4.4 % Basophils (%) (Auto) 1.6 % Neutrophils # (Auto) 3.6 TH/MM3 Lymphocytes # (Auto) 1.3 TH/MM3 Monocytes # (Auto) 0.6 TH/MM3 Eosinophils # (Auto) 0.3 TH/MM3 Basophils # (Auto) 0.1 TH/MM3 CBC Comment DIFF FINAL Differential Comment Blood Urea Nitrogen 47 MG/DL Creatinine 11.89 MG/DL Random Glucose 104 MG/DL Calcium Level 10.6 MG/DL Sodium Level 134 MEQ/L Potassium Level 4.9 MEQ/L Chloride Level 93 MEQ/L Carbon Dioxide Level 31.1 MEQ/L Anion Gap 10 MEQ/L Estimat Glomerular Filtration Rate 3 ML/MIN Vitals/IOs Vital Signs Date Time Temp Pulse Resp B/P (MAP) Pulse Ox O2 Delivery O2 Flow Rate FiO2 03/03/17 12:00 98.2 54 18 185/96 (125) 98 03/02/17 19:28 21 03/01/17 17:33 Nasal Cannula 2.00 Assessment & Plan Problem List: (1) Delirium due to another medical condition ICD Codes: F05 - Delirium due to known physiological condition Assessment & Plan: Patient very sedated and lethargic, hold psychotropics. Assessment & Plan Estimated LOS: days Justification for Cont. Inpt. We'll follow-up Michael Price MD Mar 03, 2017 13:30
--- NOTE | 2017-03-03 14:52 | HHI.NPPN ---
Subjective History of Present Illness Hx of ESRD, Non compliance, AMS Review of Systems General Constitutional: Fatigue Objective Data Data 03/03/17 03/04/17 19:00 07:00 # Bowel Movements 1 Vital Signs Date Time Temp Pulse Resp B/P (MAP) Pulse Ox O2 Delivery O2 Flow Rate FiO2 03/03/17 12:00 98.2 54 18 185/96 (125) 98 03/03/17 09:22 94 03/03/17 08:00 98.1 57 19 165/84 (111) 94 03/03/17 06:43 62 18 146/86 (106) 94 03/03/17 06:39 97.3 62 182/97 (125) 95 03/03/17 00:00 98.1 66 17 145/87 (106) 94 03/03/17 00:00 61 03/02/17 23:59 98.1 66 20 145/87 (106) 96 03/02/17 23:00 98.2 64 20 184/101 (128) 97 03/02/17 20:00 73 03/02/17 20:00 98.3 69 20 180/108 (132) 91 03/02/17 19:28 21 03/02/17 16:52 98.3 67 20 188/98 (128) 95 -: 03/03/17 1053 03/03/17 1053 Physical Exam General Appearance: Well Developed, Well Nourished Neck Neck Exam: Neck Supple Pulmonary Resp Exam: Clear Bilaterally, Breath Sounds Equal Cardiology CV Exam: Regular, Normal Sinus Rhythm Gastrointestinal/Abdomen GI Exam: Soft, Non-Tender, Bowel Sounds Present Extremeties Extremities Exam: No Edema Neurologic Neuro Exam: Alert Assessment/Plan Problem List: (1) ESRD (end stage renal disease) ICD Codes: N18.6 - End stage renal disease Status: Resolved Plan: She is on hemodialysis MWF schedule AMS Last HD UF 2.5 L remains confused bed bound in restraints patient with AMS Ca 10.6 Miacalcin spray ordered neurology thinks his uremic encephalopathy however her BP again is less than 50 AMS multifactorial underlying CVA with multi-infarct dementia from stroke is a possibility I will increase time to 4 hours on dialysis to see if she has any benefit Discussed with Dr. Henderson (2) Altered mental status ICD Codes: R41.82 - Altered mental status, unspecified Status: Chronic Plan: Patient has uremia continue to monitor (3) Encephalopathy ICD Codes: G93.40 - Encephalopathy, unspecified Plan: Due to renal failure and metabolic (4) Diabetes mellitus ICD Codes: E11.9 - Type 2 diabetes mellitus without complications Status: Chronic Plan: Resume diet (5) Hypercalcemia ICD Codes: E83.52 - Hypercalcemia Status: Acute Plan: Unclear etiology I will order parathyroid hormone and vitamin D 25 level (6) Hyperkalemia ICD Codes: E87.5 - Hyperkalemia Status: Acute Plan: Due to renal failure (7) Hypertensive urgency ICD Codes: I16.0 - Hypertensive urgency Status: Acute Plan: Resume outpatient blood pressure medication Problem Qualifiers (1) Altered mental status: Qualified Codes: R41.0 - Disorientation, unspecified (2) Diabetes mellitus: Sylvain Freedman MD Mar 03, 2017 14:52
[2017-03-03] MEDS: ASPIRIN EC 81 MG TABEC PO SCH (15:53)
--- NOTE | 2017-03-03 16:16 | PD.WCN.NOT ---
Wound Consult Description: Wound consult ordered by for buttocks Communicated with: Opal ALBRIGHT [address] [place] [address] ,Dr.Stoverink RAMIREZ Recommendation: 1) Reposition patient every 2 hours for comfort and offloading 2) Cleanse R Ischial wound with normal saline pat dry. 3) Skin prep to jes wound , Apply Santyl 2mm thick to wound base. 4) Cover with moisten gauze secure with boarder gauze Change dressing daily or as needed for Exudate or dislodgement. Additional Information: Patient was seen on [address] [place] [address] by Line Palletizer and Opal ALBRIGHT [address] [place] [address] .Patient lethargic in bed upon assessment laying on right side .Assessment finding patient has chronic unstageable pressure related injury to Right Ischial measuring 1.6cm x 1.3cm x 0.2cm wound base present adhered soft yellow/brown necrotic tissue.Wound edges well approximated circumferential.No drainage noted nor odor.Periwound intact blanchable.Wound cleansed with normal saline pat dry left open to air at this time.Opal ALBRIGHT will apply dressing when Santyl available.Healed scar tissue noted to Left Ischial. Gabriel Mcpherson [facility] Mar 03, 2017 16:16
[2017-03-03] MEDS: HALOPERIDOL LACTATE 5 MG/ML AMP IM PRN (16:23)
--- NOTE | 2017-03-03 23:42 | MG ---
cc: JOSHUA JON MD Sex: F DATE OF [address] Lam MEDICAL HISTORY Congestive heart failure, hypertension, anemia, pancreatitis, renal failure on dialysis, coronary artery disease, admitted for altered mental status and confusion. MEDICATIONS 1. Hydralazine. 2. Aspirin. 3. Vitamin B12. 4. Glyburide. 5. Coreg. 6. Catapres. 7. Procardia. 8. Heparin. DESCRIPTION There is generalized background slowing in the theta range throughout the recording. The background activity is five to six theta located posteriorly. Hyperventilation was omitted. Photic stimulation did not elicit a driving response. During the recording there is transition to stage II sleep with appearance of K complexes and sleep spindles. There was intermittent slowing more prominent on the left parietal lesion. There was no ictal activity or electrographic seizures noted. INTERPRETATION This is an awake, drowsy and sleep EEG. There is generalized slowing that may indicate a metabolic, hypoxic or medication effect etiology. There is localized slowing in the left parietal region that may indicate structural lesion. There were no electrographic seizures or epileptiform discharges noted during the recording. Clinical correlation is recommended. MD MARLYS Oliva/EMILIA /11:08 PM /11:21 PM MTDD
[2017-03-04] VITALS (8 sets, daily range): BP systolic 104–210; BP diastolic 69–98; PULSE 52–82; RESP 17–18; TEMP 97.2–98.1; O2SAT 93–98
[2017-03-04] MEDS: hydrALAZINE HCL 25 MG TAB PO SCH ×3 (06:33→20:46)
[2017-03-04] MEDS: INSULIN ASPART SUPPLEMENTAL SCALE SQ SCH ×4 (07:37→20:56)
[2017-03-04 08:10] LABS: BASOPHIL # 0.2 TH/MM3 (0-0.2); BASOPHIL % 3.5 % (0.0-2.0); EOSINOPHIL # 0.3 TH/MM3 (0-0.4); EOSINOPHIL % 4.3 % (0.0-4.0); HEMATOCRIT 42.1 % (35.0-46.0); LYMPH % 23.4 % (9.0-44.0); LYMPHOCYTE # 1.6 TH/MM3 (1.0-4.8); MEAN CELL VOLUME 93.3 FL (80.0-100.0); MEAN CORPUSCULAR HEMOGLOBIN 31.1 PG (27.0-34.0); MEAN CORPUSCULAR HGB CONC 33.3 % (32.0-36.0); MEAN PLATELET VOLUME 8.6 FL (7.0-11.0); MONO % 9.3 % (0.0-8.0); MONOCYTE # 0.6 TH/MM3 (0-0.9); NEUT % 59.5 % (16.0-70.0); PLATELET COUNT 256 TH/MM3 (150-450); RED BLOOD COUNT 4.51 MIL/MM3 (4.00-5.30); RED CELL DISTRIBUTION WIDTH 14.9 % (11.6-17.2); WHITE BLOOD COUNT 6.7 TH/MM3 (4.0-11.0)
[2017-03-04 08:27] LABS: BICARBONATE 28.9 MEQ/L (21.0-32.0); CALCIUM 10.6 MG/DL (8.5-10.1)
[2017-03-04 08:32] LABS: CREATININE 13.21 MG/DL (0.50-1.00)
[2017-03-04] MEDS ORDERED: COLLAGENASE OINT 30 GM TUBE EXTERNAL SCH (09:00)
[2017-03-04] MEDS: SODIUM CHLORIDE 0.9% FLUSH 10 ML FLUSH IV FLUSH SCH ×2 (09:00→20:46)
[2017-03-04] MEDS: GELATIN 12 MM/7 MM FOAM TOP PRN (10:51)
[2017-03-04] MEDS: CARVEDILOL 12.5 MG TAB PO SCH ×2 (13:06→20:46)
[2017-03-04] MEDS: SEVELAMER CARBONATE 800 MG TAB PO SCH ×2 (13:06→17:32)
[2017-03-04] MEDS: NIFEdipine 60 MG SUSTAINED RELEASE TAB PO SCH ×2 (13:06→20:46)
[2017-03-04] MEDS: CYANOCOBALAMIN 1,000 MCG TAB PO SCH (13:07)
[2017-03-04] MEDS: ASPIRIN EC 81 MG TABEC PO SCH (13:07)
[2017-03-04] MEDS: FAMOTIDINE 20 MG TAB PO SCH ×2 (13:07→20:46)
[2017-03-04] MEDS: DOCUSATE SODIUM 50 MG/SENNA 8.6 MG TAB PO SCH ×2 (13:07→20:46)
[2017-03-04] MEDS: QUEtiapine FUMARATE 25 MG TAB PO SCH (13:07)
[2017-03-04] MEDS: CALCITONIN SALM 200 UNIT/SPRAY 3.7 ML BTLN NASAL SCH (13:08)
[2017-03-04] MEDS: HEPARIN SODIUM - SQ 10,000 UNITS/ML VIAL SQ SCH ×2 (13:08→20:46)
--- NOTE | 2017-03-04 13:20 | HHI.PR ---
Subjective Remarks Follow up encephalopathy. Patient is much more alert today. She denies pain, dyspnea. Objective Vitals Vital Signs Date Time Temp Pulse Resp B/P (MAP) Pulse Ox O2 Delivery O2 Flow Rate FiO2 03/04/17 08:00 59 03/04/17 07:58 97.2 59 18 188/97 (127) 93 03/04/17 06:30 210/98 (135) 03/04/17 04:00 97.8 61 18 104/74 (84) 96 03/04/17 00:14 52 03/04/17 00:00 98.1 55 17 149/72 (97) 96 03/03/17 20:00 98.2 61 22 168/91 (116) 92 03/03/17 16:00 97.9 59 18 178/99 (125) 95 I/O 03/03/17 03/03/17 03/03/17 03/04/17 03/04/17 03/04/17 07:00 15:00 23:00 07:00 15:00 23:00 Output Total 0 ml 2000 ml Balance 0 ml -2000 ml Output Urine Total 0 ml Hemodialysis 2000 ml # Voids 0 # Bowel Movements 1 1 0 Result Diagram: 03/04/17 0718 03/04/17 0718 Imaging Last Impressions Head CT 03/03/17 0000 Signed Impressions: Service Date/Time: Friday, March 03, 2017 09:15 - CONCLUSION: 1. Suboptimal study secondary to motion artifact. 2. Stable focal area of encephalomalacia in the left parietal lobe. 3. Atrophy and chronic small vessel ischemic change again noted. There is a small stable lacunar infarct again noted in the right basal ganglia. 4. No acute hemorrhage or mass effect. Truong Robledo MD Chest X-Ray 02/25/17 0516 Signed Impressions: Service Date/Time: Saturday, February 25, 2017 05:36 - CONCLUSION: Mild bibasilar consolidation and small left effusion. Navneet Gray Jr., MD Objective Remarks General: Obese female in no acute distress. Heart: Regular rate and rhythm. No murmur. Lungs: Clear to auscultation bilaterally. No wheezes, rales, or rhonchi. Breathing is nonlabored. Abdomen: Soft, nontender, nondistended. Extremities: No lower extremity edema. SCDs. Psych: Alert, confused. She is aware she is in the hospital, but does not know which hospital, which city, or what year it is. Procedures None Urinary Catheter: No Vascular Central Line Catheter: No A/P Problem List: (1) Non-compliance ICD Code: Z91.19 - Patient's noncompliance with other medical treatment and regimen Status: Chronic (2) Hypertension ICD Code: I10 - Essential (primary) hypertension Status: Chronic (3) Diabetes mellitus ICD Code: E11.9 - Type 2 diabetes mellitus without complications Status: Chronic (4) Altered mental status ICD Code: R41.82 - Altered mental status, unspecified Status: Chronic (5) ESRD (end stage renal disease) ICD Code: N18.6 - End stage renal disease Status: Resolved (6) Anemia ICD Code: D64.9 - Anemia, unspecified Status: Acute (7) Encephalopathy ICD Code: G93.40 - Encephalopathy, unspecified Assessment and Plan 1. Metabolic encephalopathy: Patient is much more lethargic today. CT of brain done on admission shows no acute abnormality, but shows chronic stable encephalomalacia. Repeat head CT is unchanged. Patient's mental status is significantly improved today, but she does remain confused. MRI of the brain is pending. Confusion may be due to multi-infarct dementia. 2. Hypertensive urgency: Continue Catapres patch, carvedilol, Procardia XL. 3. Elevated troponin: [place] to be secondary to end-stage renal disease. 4. End-stage renal disease: Hemodialysis per nephrology, Thursday/Thursday/ Thursday. 5. GI prophylaxis: Famotidine. 6. DVT prophylaxis: Heparin, SCDs. Problem Qualifiers (1) Diabetes mellitus: (2) Altered mental status: Qualified Codes: R41.0 - Disorientation, unspecified (3) Anemia: Best Henderson MD Mar 04, 2017 13:20
--- NOTE | 2017-03-04 14:16 | RADRPT ---
EXAM DATE/TIME: 03/04/2017 12:36 [facility] COMPARISON: CT BRAIN W/O CONTRAST, March 03, 2017, 9:15. MRI BRAIN W/O CONTRAST, May 26, 2016, 9:26. INDICATIONS : Psychosis. MEDICAL HISTORY : Diabetes mellitus type 2. Hypertension. Renal disease, end stage. SURGICAL HISTORY : None. ENCOUNTER: Subsequent ACUITY: 2 day PAIN SCORE: 0/10 LOCATION: head. TECHNIQUE: Multiplanar, multisequence MRI of the brain was performed without contrast. FINDINGS: CEREBRUM: Old lacunar infarcts. There is also an old infarct left parietal lobe. Multifocal areas of susceptibi lity artifact throughout the subl hemispheres bilaterally could be petechial hemorrhages but unchange d. The ventricles are normal for age. No evidence of midline shift, mass lesion, hemorrhage or acute infarction. No extraaxial fluid collections are seen. The pituitary gland and suprasellar cistern are normal in configuration. WHITE MATTER: Scattered foci of bright T2 signal abnormalities are seen in the white matter. POSTERIOR FOSSA: The cerebellum and brainstem are intact. The 4th ventricle is midline. The cerebellopontine angle is unremarkable. The cerebellar tonsils are normal in position. DIFFUSION IMAGING: No focal areas of restricted diffusion are seen. No evidence of acute infarction. EXTRACRANIAL: The visualized portions of the orbits and paranasal sinuses are unremarkable. CONCLUSION: 1. Remote lacunar infarcts. 2. No acute intracranial abnormality. 3. Old infarct left parietal lobe, stable. 4. Multifocal areas of susceptibility artifact throughout cerebral hemispheres likely petechial hemor rhages but unchanged. This could be from hypertensive encephalopathy or possible amyloid. Sharath Martinez MD on March 04, 2017 at 14:09 Board Certified Radiologist. This report was verified electronically.
[2017-03-04 15:46] LABS: PTH RELATED PEPTIDE 0.8 pmol/L (<2.0)
[2017-03-04] MEDS ORDERED: CLON.1T T-DERMAL (17:28)
[2017-03-04] MEDS: HALOPERIDOL LACTATE 5 MG/ML AMP IM PRN (19:23)
[2017-03-10] MEDS ORDERED: REMOVE OLD CATAPRES (CLONIDINE) PATCH T-DERMAL SCH (11:00)
== END 2017-03-04 21:44 | DRG 70 ==
LOC: NEPE 05:03 → NEDA 06:47 → HIMW 11:54 → N05A 02-26 16:55
PROVIDERS: ADMIT Anesthesiology; ATTEND Family Medicine
PROC: 5A1D70Z Performance of Urinary Filtration, Intermittent, Less than 6 Hours Per Day (ICD-10-PCS; principal; 2017-02-25)
DX: G93.41 Metabolic encephalopathy (principal); N18.6 End stage renal disease; I13.2 Hypertensive heart and chronic kidney disease with heart failure and with stage 5 chronic kidney disease, or end stage renal disease; L89.310 Pressure ulcer of right buttock, unstageable; F05 Delirium due to known physiological condition; E11.22 Type 2 diabetes mellitus with diabetic chronic kidney disease; E83.52 Hypercalcemia; I16.0 Hypertensive urgency; E87.5 Hyperkalemia; I25.10 Atherosclerotic heart disease of native coronary artery without angina pectoris; Z99.2 Dependence on renal dialysis; D63.8 Anemia in other chronic diseases classified elsewhere; I50.9 Heart failure, unspecified; Z91.15 Patient's noncompliance with renal dialysis; R53.1 Weakness; Z86.73 Personal history of transient ischemic attack (TIA), and cerebral infarction without residual deficits; Z91.19 Patient's noncompliance with other medical treatment and regimen; Z79.84 Long term (current) use of oral hypoglycemic drugs
CPT/HCPCS: 70450; 70551; 71045; 80048; 80053; 82140; 82306; 82397; 82550; 82652; 82948; 83605; 83735; 83970; 84100; 84155; 84484; 85025; 85027; 87641; 90935; 93005; 95819; 96374; J0360; J1630; J1644; J2060; J7030

== ENCOUNTER 2017-03-04 21:45 | Inpatient (IN) | payer MEDICARE ==
[2017-03-04] MEDS ORDERED: OLANZapine IM 10 MG VIAL IM (22:00)
[2017-03-04] MEDS: OLANZapine IM 10 MG VIAL IM (22:00)
[2017-03-05] MEDS: cloNIDine HCL 0.2 MG TAB PO (02:45)
[2017-03-05] MEDS: LORazepam 2 MG/ML VIAL IM (07:00)
[2017-03-05] MEDS: HALOPERIDOL LACTATE 5 MG/ML AMP IM (07:00)
[2017-03-05] MEDS: glyBURIDE 5 MG TAB PO (14:08)
[2017-03-05] MEDS: CARVEDILOL 12.5 MG TAB PO ×2 (14:09→21:28)
[2017-03-05] MEDS: hydrALAZINE HCL 25 MG TAB PO ×2 (14:09→21:28)
[2017-03-05] MEDS: PANTOPRAZOLE SOD 40 MG DELAYED RELEASE TAB PO ×2 (14:09→21:27)
[2017-03-05] MEDS: NIFEdipine 60 MG SUSTAINED RELEASE TAB PO ×2 (14:11→21:28)
[2017-03-05] MEDS: SEVELAMER CARBONATE 800 MG TAB PO ×2 (14:11→18:34)
[2017-03-05] MEDS: ASPIRIN EC 81 MG TABEC PO (14:11)
[2017-03-05] MEDS ORDERED: GLUCAGON 1 MG/ML VIAL OTHER (14:30)
[2017-03-05] MEDS ORDERED: DEXTROSE 50% IN WATER 50 ML VIAL(D50) IV PUSH (14:30)
[2017-03-05] MEDS ORDERED: SODIUM CHLOR 0.9% 1000 ML INJ 1,000 ML OTHER ×2 (15:01)
[2017-03-05] MEDS ORDERED: SODIUM CHLOR 0.9% 1000 ML INJ 1,000 ML IV (15:01)
[2017-03-05] MEDS ORDERED: cloNIDine HCL 0.1 MG TAB PO (15:15)
[2017-03-05] MEDS ORDERED: MANNITOL 12.5 GM/50 ML VIAL IV (15:15)
[2017-03-05] MEDS ORDERED: SODIUM CHLORIDE 0.9% FLUSH 10 ML FLUSH IV FLUSH (15:15)
[2017-03-05] MEDS ORDERED: ONDANSETRON HCL 4 MG/2 ML VIAL IV PUSH (15:15)
[2017-03-05] MEDS ORDERED: HEPARIN SODIUM - IV 10,000 UNITS/10 ML VIAL IV FLUSH (15:15)
[2017-03-05] MEDS ORDERED: NITROGLYCERIN 0.4 MG SL 25 TABS/BTL SL (15:15)
[2017-03-05] MEDS: INSULIN ASPART SUPPLEMENTAL SCALE SQ ×2 (17:14→21:00)
[2017-03-05] MEDS: LORazepam 2 MG/ML VIAL (18:21)
[2017-03-05] MEDS: HALOPERIDOL LACTATE 5 MG/ML AMP (18:34)
[2017-03-05] MEDS ORDERED: LORazepam 2 MG/ML VIAL IM (18:36)
[2017-03-05] MEDS ORDERED: HALOPERIDOL LACTATE 5 MG/ML AMP IM (18:36)
[2017-03-06] MEDS: hydrALAZINE HCL 25 MG TAB PO ×5 (05:35→21:40)
[2017-03-06] MEDS: INSULIN ASPART SUPPLEMENTAL SCALE SQ ×4 (06:21→21:00)
[2017-03-06] MEDS: cloNIDine HCL 0.1 MG TAB PO (06:45)
[2017-03-06] MEDS: hydrALAZINE HCL 20 MG/ML VIAL IV PUSH (07:00)
[2017-03-06] MEDS ORDERED: QUEtiapine FUMARATE 25 MG TAB PO (09:00)
[2017-03-06] MEDS: NIFEdipine 60 MG SUSTAINED RELEASE TAB PO ×2 (09:30→21:40)
[2017-03-06] MEDS: ASPIRIN EC 81 MG TABEC PO (09:30)
[2017-03-06] MEDS: CARVEDILOL 12.5 MG TAB PO ×2 (09:30→21:41)
[2017-03-06] MEDS: ALBUMIN 25% INJ 100 ML IV (11:07)
[2017-03-06] MEDS: SEVELAMER CARBONATE 800 MG TAB PO ×3 (12:36→17:17)
[2017-03-06] MEDS: PANTOPRAZOLE SOD 40 MG DELAYED RELEASE TAB PO ×2 (12:36→21:40)
[2017-03-06] MEDS: QUEtiapine FUMARATE 25 MG TAB PO (12:36)
[2017-03-07] MEDS: hydrALAZINE HCL 25 MG TAB PO ×3 (05:24→21:03)
[2017-03-07] MEDS: LORazepam 2 MG/ML VIAL IM ×2 (06:17→21:00)
[2017-03-07] MEDS: OLANZapine IM 10 MG VIAL IM ×3 (06:17→18:15)
[2017-03-07] MEDS: INSULIN ASPART SUPPLEMENTAL SCALE SQ ×4 (07:14→21:00)
[2017-03-07] MEDS: ASPIRIN EC 81 MG TABEC PO (07:56)
[2017-03-07] MEDS: NIFEdipine 60 MG SUSTAINED RELEASE TAB PO ×2 (07:56→21:00)
[2017-03-07] MEDS: CARVEDILOL 12.5 MG TAB PO ×2 (07:57→21:00)
[2017-03-07] MEDS: SEVELAMER CARBONATE 800 MG TAB PO ×3 (07:57→16:35)
[2017-03-07] MEDS: QUEtiapine FUMARATE 25 MG TAB PO ×4 (07:57→21:00)
[2017-03-07] MEDS: PANTOPRAZOLE SOD 40 MG DELAYED RELEASE TAB PO ×2 (07:57→21:00)
[2017-03-07] MEDS: HALOPERIDOL LACTATE 5 MG/ML AMP IM (21:00)
[2017-03-08] MEDS: hydrALAZINE HCL 25 MG TAB PO ×3 (06:23→22:00)
[2017-03-08] MEDS: INSULIN ASPART SUPPLEMENTAL SCALE SQ ×4 (07:19→21:00)
[2017-03-08] MEDS: PANTOPRAZOLE SOD 40 MG DELAYED RELEASE TAB PO ×2 (09:00→21:00)
[2017-03-08] MEDS: SEVELAMER CARBONATE 800 MG TAB PO ×3 (09:00→16:56)
[2017-03-08] MEDS: NIFEdipine 60 MG SUSTAINED RELEASE TAB PO ×2 (09:00→21:00)
[2017-03-08] MEDS: QUEtiapine FUMARATE 25 MG TAB PO ×2 (09:00→11:43)
[2017-03-08] MEDS: CARVEDILOL 12.5 MG TAB PO ×2 (09:00→21:00)
[2017-03-08] MEDS: ASPIRIN EC 81 MG TABEC PO (09:00)
[2017-03-08] MEDS: QUEtiapine FUMARATE 100 MG TAB PO (21:00)
[2017-03-09] MEDS: hydrALAZINE HCL 25 MG TAB PO ×4 (06:00→20:55)
[2017-03-09] MEDS: INSULIN ASPART SUPPLEMENTAL SCALE SQ ×4 (08:00→21:30)
[2017-03-09 08:08] LABS: ALBUMIN 4.1 GM/DL (3.4-5.0); ANION GAP 12 MEQ/L (5-15); AST (GOT) 13 U/L (15-37); BICARBONATE 28.1 MEQ/L (21.0-32.0); BLOOD UREA NITROGEN 93 MG/DL (7-18); CALCIUM 10.1 MG/DL (8.5-10.1); CHLORIDE 91 MEQ/L (98-107); GLOMERULAR FILTRATION RATE 3 ML/MIN (>89); GLUCOSE,RANDOM 94 MG/DL (74-106); POTASSIUM 5.1 MEQ/L (3.5-5.1); SODIUM (NA) 131 MEQ/L (136-145)
[2017-03-09 08:11] LABS: ALKALINE PHOSPHATASE 60 U/L (45-117); ALT (GPT) 22 U/L (10-53); TOTAL BILIRUBIN ADULT 0.6 MG/DL (0.2-1.0); TOTAL PROTEIN 7.7 GM/DL (6.4-8.2)
[2017-03-09 08:25] LABS: CREATININE 12.56 MG/DL (0.50-1.00)
[2017-03-09] MEDS: ASPIRIN EC 81 MG TABEC PO (08:41)
[2017-03-09] MEDS: SEVELAMER CARBONATE 800 MG TAB PO ×3 (08:41→16:58)
[2017-03-09] MEDS: NIFEdipine 60 MG SUSTAINED RELEASE TAB PO ×2 (08:41→20:55)
[2017-03-09] MEDS: PANTOPRAZOLE SOD 40 MG DELAYED RELEASE TAB PO ×2 (08:41→20:55)
[2017-03-09] MEDS: CARVEDILOL 12.5 MG TAB PO ×2 (08:41→20:55)
[2017-03-09] MEDS: QUEtiapine FUMARATE 25 MG TAB PO ×2 (08:42→11:43)
[2017-03-09] MEDS: QUEtiapine FUMARATE 100 MG TAB PO (20:54)
[2017-03-09] MEDS: ACETAMINOPHEN 325 MG TAB PO (20:55)
[2017-03-10] MEDS: hydrALAZINE HCL 25 MG TAB PO ×3 (06:08→21:32)
[2017-03-10] MEDS: INSULIN ASPART SUPPLEMENTAL SCALE SQ ×4 (07:52→21:00)
[2017-03-10] MEDS: CARVEDILOL 12.5 MG TAB PO ×2 (08:37→21:32)
[2017-03-10] MEDS: NIFEdipine 60 MG SUSTAINED RELEASE TAB PO ×2 (08:37→21:32)
[2017-03-10] MEDS: PANTOPRAZOLE SOD 40 MG DELAYED RELEASE TAB PO ×2 (08:37→21:31)
[2017-03-10] MEDS: SEVELAMER CARBONATE 800 MG TAB PO ×3 (08:37→17:23)
[2017-03-10] MEDS: ASPIRIN EC 81 MG TABEC PO (08:37)
[2017-03-10] MEDS: QUEtiapine FUMARATE 25 MG TAB PO ×2 (08:43→12:00)
[2017-03-10] MEDS: DIVALPROEX SODIUM E.R. 250 MG TAB PO ×2 (09:30→21:32)
[2017-03-10] MEDS: HALOPERIDOL LACTATE 5 MG/ML AMP IM (09:35)
[2017-03-10] MEDS: LORazepam 2 MG/ML VIAL IM (09:35)
[2017-03-10] MEDS ORDERED: LORazepam 2 MG/ML VIAL (09:37)
[2017-03-10] MEDS ORDERED: HALOPERIDOL LACTATE 5 MG/ML AMP (09:37)
[2017-03-10] MEDS: QUEtiapine FUMARATE 100 MG TAB PO (21:31)
[2017-03-11] MEDS: hydrALAZINE HCL 25 MG TAB PO ×3 (06:20→22:00)
[2017-03-11] MEDS: INSULIN ASPART SUPPLEMENTAL SCALE SQ ×4 (07:47→21:00)
[2017-03-11] MEDS: CARVEDILOL 12.5 MG TAB PO ×2 (09:00→20:20)
[2017-03-11] MEDS: NIFEdipine 60 MG SUSTAINED RELEASE TAB PO ×2 (09:00→20:20)
[2017-03-11] MEDS: DIVALPROEX SODIUM E.R. 250 MG TAB PO ×2 (09:00→20:20)
[2017-03-11] MEDS: SEVELAMER CARBONATE 800 MG TAB PO ×3 (09:00→18:00)
[2017-03-11] MEDS: ASPIRIN EC 81 MG TABEC PO (09:00)
[2017-03-11] MEDS: PANTOPRAZOLE SOD 40 MG DELAYED RELEASE TAB PO ×2 (09:00→20:20)
[2017-03-11] MEDS: QUEtiapine FUMARATE 25 MG TAB PO ×2 (09:00→12:00)
[2017-03-11] MEDS: HEPARIN SODIUM - IV 10,000 UNITS/10 ML VIAL (16:02)
[2017-03-11] MEDS: GENTAMICIN SULFATE 20 MG/2 ML VIAL OTHER (16:02)
[2017-03-11] MEDS: GELATIN 12 MM/7 MM FOAM TOP (16:56)
[2017-03-11] MEDS: ALBUMIN 25% INJ 100 ML IV (16:56)
[2017-03-11] MEDS: QUEtiapine FUMARATE 100 MG TAB PO (20:20)
[2017-03-12] MEDS: hydrALAZINE HCL 25 MG TAB PO ×3 (06:00→20:43)
[2017-03-12] MEDS: INSULIN ASPART SUPPLEMENTAL SCALE SQ ×4 (08:00→20:41)
[2017-03-12] MEDS: DIVALPROEX SODIUM E.R. 250 MG TAB PO ×2 (08:04→20:39)
[2017-03-12] MEDS: QUEtiapine FUMARATE 25 MG TAB PO ×2 (08:04→11:19)
[2017-03-12] MEDS: NIFEdipine 60 MG SUSTAINED RELEASE TAB PO ×2 (08:04→20:37)
[2017-03-12] MEDS: SEVELAMER CARBONATE 800 MG TAB PO ×3 (08:04→18:00)
[2017-03-12] MEDS: PANTOPRAZOLE SOD 40 MG DELAYED RELEASE TAB PO ×2 (08:04→20:38)
[2017-03-12] MEDS: ASPIRIN EC 81 MG TABEC PO (08:04)
[2017-03-12] MEDS: CARVEDILOL 12.5 MG TAB PO ×2 (08:04→20:40)
[2017-03-12 14:17] LABS: VALPROIC ACID (DEPAKENE) 33 MCG/ML (50-100)
[2017-03-12] MEDS: diphenhydrAMINE HCL 25 MG CAP PO (20:37)
[2017-03-12] MEDS: QUEtiapine FUMARATE 100 MG TAB PO (20:38)
[2017-03-13] MEDS: hydrALAZINE HCL 25 MG TAB PO ×3 (06:07→20:37)
[2017-03-13] MEDS: INSULIN ASPART SUPPLEMENTAL SCALE SQ ×4 (08:00→20:38)
[2017-03-13] MEDS: SEVELAMER CARBONATE 800 MG TAB PO ×3 (09:00→17:00)
[2017-03-13] MEDS: QUEtiapine FUMARATE 25 MG TAB PO ×2 (09:00→11:46)
[2017-03-13 10:10] LABS: AUTOMATED NEUTROPHIL # 3.8 TH/MM3 (1.8-7.7); BASOPHIL # 0.1 TH/MM3 (0-0.2); EOSINOPHIL # 0.3 TH/MM3 (0-0.4); EOSINOPHIL % 4.1 % (0.0-4.0); HEMATOCRIT 29.8 % (35.0-46.0); HEMO FLAGS DIFF FINAL; HEMOGLOBIN 10.1 GM/DL (11.6-15.3); LYMPH % 28.6 % (9.0-44.0); MEAN CELL VOLUME 90.8 FL (80.0-100.0); MEAN CORPUSCULAR HEMOGLOBIN 30.7 PG (27.0-34.0); MEAN CORPUSCULAR HGB CONC 33.8 % (32.0-36.0); MONO % 11.4 % (0.0-8.0); MONOCYTE # 0.8 TH/MM3 (0-0.9); NEUT % 54.9 % (16.0-70.0); PLATELET COUNT 176 TH/MM3 (150-450); RED BLOOD COUNT 3.29 MIL/MM3 (4.00-5.30); RED CELL DISTRIBUTION WIDTH 14.6 % (11.6-17.2); WHITE BLOOD COUNT 6.9 TH/MM3 (4.0-11.0)
[2017-03-13 10:42] LABS: ALBUMIN 3.7 GM/DL (3.4-5.0); ANION GAP 10 MEQ/L (5-15); BICARBONATE 28.5 MEQ/L (21.0-32.0); CALCIUM 9.4 MG/DL (8.5-10.1); CHLORIDE 96 MEQ/L (98-107); CREATININE 8.59 MG/DL (0.50-1.00); GLOMERULAR FILTRATION RATE 5 ML/MIN (>89); GLUCOSE,RANDOM 134 MG/DL (74-106); PHOSPHORUS 2.7 MG/DL (2.5-4.9); POTASSIUM 4.8 MEQ/L (3.5-5.1); SODIUM (NA) 134 MEQ/L (136-145)
[2017-03-13 10:48] LABS: BLOOD UREA NITROGEN 72 MG/DL (7-18)
[2017-03-13] MEDS: PANTOPRAZOLE SOD 40 MG DELAYED RELEASE TAB PO ×2 (11:45→20:37)
[2017-03-13] MEDS: NIFEdipine 60 MG SUSTAINED RELEASE TAB PO ×2 (11:45→20:38)
[2017-03-13] MEDS: DIVALPROEX SODIUM E.R. 250 MG TAB PO ×2 (11:46→20:37)
[2017-03-13] MEDS: CARVEDILOL 12.5 MG TAB PO ×2 (11:47→20:38)
[2017-03-13] MEDS: ASPIRIN EC 81 MG TABEC PO (11:47)
[2017-03-13] MEDS: diphenhydrAMINE HCL 25 MG CAP PO (20:37)
[2017-03-13] MEDS: QUEtiapine FUMARATE 100 MG TAB PO (20:38)
[2017-03-14] MEDS: hydrALAZINE HCL 25 MG TAB PO ×3 (06:00→20:29)
[2017-03-14] MEDS: INSULIN ASPART SUPPLEMENTAL SCALE SQ ×4 (08:10→20:31)
[2017-03-14] MEDS: DIVALPROEX SODIUM E.R. 250 MG TAB PO (09:38)
[2017-03-14] MEDS: NIFEdipine 60 MG SUSTAINED RELEASE TAB PO ×2 (09:38→20:29)
[2017-03-14] MEDS: SEVELAMER CARBONATE 800 MG TAB PO ×3 (09:38→17:26)
[2017-03-14] MEDS: PANTOPRAZOLE SOD 40 MG DELAYED RELEASE TAB PO ×2 (09:39→20:29)
[2017-03-14] MEDS: ASPIRIN EC 81 MG TABEC PO (09:39)
[2017-03-14] MEDS: CARVEDILOL 12.5 MG TAB PO ×2 (09:39→20:29)
[2017-03-14] MEDS: QUEtiapine FUMARATE 25 MG TAB PO ×2 (09:40→12:25)
[2017-03-14] MEDS ORDERED: PILL SPLITTER OTHER (12:30)
[2017-03-14 13:08] LABS: HEMOGLOBIN A1C 5.6 % (4.3-6.0); HEMOGLOBIN A1b 0.8 %; HEMOGLOBIN Ao 84.4 %; HEMOGLOBIN F 1.1 %; HEMOGLOBIN LA1C 2.4 %; HEMOGLOBIN P3 5.8 %
[2017-03-14] MEDS: DIVALPROEX SODIUM E.R. 500 MG TAB PO (20:28)
[2017-03-14] MEDS: QUEtiapine FUMARATE 100 MG TAB PO (20:28)
[2017-03-15] MEDS: hydrALAZINE HCL 25 MG TAB PO ×3 (05:29→20:46)
[2017-03-15] MEDS: INSULIN ASPART SUPPLEMENTAL SCALE SQ ×4 (08:00→20:43)
[2017-03-15] MEDS: PANTOPRAZOLE SOD 40 MG DELAYED RELEASE TAB PO ×3 (09:00→20:41)
[2017-03-15] MEDS: SEVELAMER CARBONATE 800 MG TAB PO ×3 (09:00→17:30)
[2017-03-15] MEDS: CARVEDILOL 12.5 MG TAB PO ×3 (09:00→20:41)
[2017-03-15] MEDS: DIVALPROEX SODIUM E.R. 500 MG TAB PO ×3 (09:00→20:41)
[2017-03-15] MEDS: ASPIRIN EC 81 MG TABEC PO ×2 (09:00→12:05)
[2017-03-15] MEDS: NIFEdipine 60 MG SUSTAINED RELEASE TAB PO ×3 (09:00→20:41)
[2017-03-15] MEDS: QUEtiapine FUMARATE 100 MG TAB PO (20:41)
[2017-03-16] MEDS: hydrALAZINE HCL 25 MG TAB PO ×3 (06:00→20:30)
[2017-03-16] MEDS: INSULIN ASPART SUPPLEMENTAL SCALE SQ ×4 (07:19→20:31)
[2017-03-16] MEDS: PANTOPRAZOLE SOD 40 MG DELAYED RELEASE TAB PO ×2 (09:00→20:30)
[2017-03-16] MEDS: SEVELAMER CARBONATE 800 MG TAB PO ×3 (09:00→18:00)
[2017-03-16] MEDS: CARVEDILOL 12.5 MG TAB PO ×2 (09:00→20:30)
[2017-03-16] MEDS: DIVALPROEX SODIUM E.R. 500 MG TAB PO ×2 (09:00→20:31)
[2017-03-16] MEDS: ASPIRIN EC 81 MG TABEC PO (09:00)
[2017-03-16] MEDS: NIFEdipine 60 MG SUSTAINED RELEASE TAB PO ×2 (09:00→20:30)
[2017-03-16 09:01] LABS: HEMATOCRIT 33.8 % (35.0-46.0); HEMOGLOBIN 11.1 GM/DL (11.6-15.3); MEAN CELL VOLUME 91.3 FL (80.0-100.0); MEAN CORPUSCULAR HEMOGLOBIN 29.9 PG (27.0-34.0); MEAN CORPUSCULAR HGB CONC 32.8 % (32.0-36.0); PLATELET COUNT 188 TH/MM3 (150-450); RED CELL DISTRIBUTION WIDTH 14.5 % (11.6-17.2); REVIEW FLAG FINAL
[2017-03-16 09:30] LABS: BLOOD UREA NITROGEN 97 MG/DL (7-18); GLOMERULAR FILTRATION RATE 4 ML/MIN (>89)
[2017-03-16 09:31] LABS: ANION GAP 12 MEQ/L (5-15); BICARBONATE 26.2 MEQ/L (21.0-32.0); CALCIUM 9.7 MG/DL (8.5-10.1); CHLORIDE 92 MEQ/L (98-107); GLUCOSE,RANDOM 191 MG/DL (74-106); MAGNESIUM 2.7 MG/DL (1.5-2.5); POTASSIUM 5.3 MEQ/L (3.5-5.1); SODIUM (NA) 130 MEQ/L (136-145)
[2017-03-16 09:36] LABS: CREATININE 10.46 MG/DL (0.50-1.00)
[2017-03-16] MEDS: QUEtiapine FUMARATE 100 MG TAB PO (20:30)
[2017-03-17] MEDS: hydrALAZINE HCL 25 MG TAB PO ×2 (05:40→12:23)
[2017-03-17] MEDS: INSULIN ASPART SUPPLEMENTAL SCALE SQ ×2 (08:00→12:00)
[2017-03-17] MEDS: PANTOPRAZOLE SOD 40 MG DELAYED RELEASE TAB PO (08:23)
[2017-03-17] MEDS: SEVELAMER CARBONATE 800 MG TAB PO ×2 (08:23→12:23)
[2017-03-17] MEDS: CARVEDILOL 12.5 MG TAB PO (08:23)
[2017-03-17] MEDS: NIFEdipine 60 MG SUSTAINED RELEASE TAB PO (08:23)
[2017-03-17] MEDS: ASPIRIN EC 81 MG TABEC PO (08:23)
[2017-03-17] MEDS: DIVALPROEX SODIUM E.R. 500 MG TAB PO (08:23)
== END 2017-03-17 15:11 | disposition home or self-care (01) | DRG 885 ==
LOC: H4EA 21:45
PROC: 5A1D70Z Performance of Urinary Filtration, Intermittent, Less than 6 Hours Per Day (ICD-10-PCS; principal; 2017-03-06)
PROC: 5A1D70Z Performance of Urinary Filtration, Intermittent, Less than 6 Hours Per Day (ICD-10-PCS; 2017-03-09)
PROC: 5A1D70Z Performance of Urinary Filtration, Intermittent, Less than 6 Hours Per Day (ICD-10-PCS; 2017-03-11)
PROC: 5A1D70Z Performance of Urinary Filtration, Intermittent, Less than 6 Hours Per Day (ICD-10-PCS; 2017-03-13)
PROC: 5A1D70Z Performance of Urinary Filtration, Intermittent, Less than 6 Hours Per Day (ICD-10-PCS; 2017-03-16)
DX: F23 Brief psychotic disorder (principal); I13.2 Hypertensive heart and chronic kidney disease with heart failure and with stage 5 chronic kidney disease, or end stage renal disease; G93.41 Metabolic encephalopathy; N18.6 End stage renal disease; F01.51 Vascular dementia, unspecified severity, with behavioral disturbance; I50.32 Chronic diastolic (congestive) heart failure; E11.22 Type 2 diabetes mellitus with diabetic chronic kidney disease; J44.9 Chronic obstructive pulmonary disease, unspecified; I25.10 Atherosclerotic heart disease of native coronary artery without angina pectoris; I69.311 Memory deficit following cerebral infarction; M54.9 Dorsalgia, unspecified; Z91.14 Patient's other noncompliance with medication regimen; Z99.2 Dependence on renal dialysis
CPT/HCPCS: 80048; 80053; 80069; 80164; 82948; 83036; 83735; 85025; 85027; 90935; 96374; 97110-GP; 97116-GP; 97163-GP; 97530-GP

== ENCOUNTER 2017-03-18 09:43 | Emergency (ER) | payer MEDICARE ==
[~2017-03-18] VITALS: Ht 170.2 cm; Wt 86.4 kg
[~2017-03-18 09:43] MED LIST changes: +CLON.1T T-DERMAL; -CLON0.2T PO; +DEPA500T3 PO; +HYDR-3799 PO; +QUET1TAB8 PO
[2017-03-18 10:15] VITALS: BP 213/100; PULSE 72; RESP 16; TEMP 97.9; O2SAT 96
[2017-03-18 10:40] LABS: AUTOMATED NEUTROPHIL # 5.4 TH/MM3 (1.8-7.7); BASOPHIL # 0.1 TH/MM3 (0-0.2); BASOPHIL % 0.8 % (0.0-2.0); EOSINOPHIL # 0.3 TH/MM3 (0-0.4); EOSINOPHIL % 3.5 % (0.0-4.0); HEMATOCRIT 33.9 % (35.0-46.0); HEMOGLOBIN 11.5 GM/DL (11.6-15.3); LYMPH % 15.4 % (9.0-44.0); LYMPHOCYTE # 1.2 TH/MM3 (1.0-4.8); MEAN CELL VOLUME 90.9 FL (80.0-100.0); MEAN CORPUSCULAR HEMOGLOBIN 30.9 PG (27.0-34.0); MEAN PLATELET VOLUME 8.6 FL (7.0-11.0); MONO % 9.2 % (0.0-8.0); MONOCYTE # 0.7 TH/MM3 (0-0.9); NEUT % 71.1 % (16.0-70.0); PLATELET COUNT 196 TH/MM3 (150-450); RED BLOOD COUNT 3.73 MIL/MM3 (4.00-5.30); RED CELL DISTRIBUTION WIDTH 14.9 % (11.6-17.2); WHITE BLOOD COUNT 7.6 TH/MM3 (4.0-11.0)
[2017-03-18] MEDS ORDERED: DIVALPROEX SODIUM E.R. 500 MG TAB PO SCH (10:45)
[2017-03-18] MEDS ORDERED: CARVEDILOL 12.5 MG TAB PO SCH (10:45)
[2017-03-18] MEDS ORDERED: NIFEdipine 60 MG SUSTAINED RELEASE TAB PO SCH (10:45)
[2017-03-18] MEDS ORDERED: glyBURIDE 5 MG TAB PO SCH (10:45)
[2017-03-18] MEDS ORDERED: hydrALAZINE HCL 25 MG TAB PO ONE (10:45)
[2017-03-18 10:57] LABS: BICARBONATE 26.4 MEQ/L (21.0-32.0); CALCIUM 9.9 MG/DL (8.5-10.1); CREATININE 9.67 MG/DL (0.50-1.00)
[2017-03-18] MEDS ORDERED: SODIUM CHLOR 0.9% 1000 ML INJ 1,000 ML IV PRN (11:26)
[2017-03-18] MEDS ORDERED: SODIUM CHLOR 0.9% 1000 ML INJ 1,000 ML OTHER PRN ×2 (11:26)
[2017-03-18 11:30] VITALS: BP 213/100; PULSE 72; RESP 16; TEMP 97.9; O2SAT 96
[2017-03-18] MEDS ORDERED: ACETAMINOPHEN 325 MG TAB PO PRN (11:30)
[2017-03-18] MEDS ORDERED: HEPARIN SODIUM - IV 10,000 UNITS/10 ML VIAL IV FLUSH PRN (11:30)
[2017-03-18] MEDS ORDERED: SODIUM CHLORIDE 0.9% FLUSH 10 ML FLUSH IV FLUSH PRN (11:30)
[2017-03-18] MEDS ORDERED: ONDANSETRON HCL 4 MG/2 ML VIAL IV PUSH PRN (11:30)
[2017-03-18] MEDS ORDERED: EPOETIN ALFA 10,000 UNITS/ML VIAL IV PUSH PRN (11:30)
[2017-03-18] MEDS ORDERED: cloNIDine HCL 0.1 MG TAB PO PRN (11:30)
[2017-03-18] MEDS ORDERED: GELATIN 12 MM/7 MM FOAM TOP PRN (11:30)
[2017-03-18] MEDS ORDERED: diphenhydrAMINE HCL 25 MG CAP PO PRN (11:30)
[2017-03-18] MEDS ORDERED: NITROGLYCERIN 0.4 MG SL 25 TABS/BTL SL PRN (11:30)
[2017-03-18] MEDS ORDERED: ALBUMIN 25% INJ 100 ML IV PRN (11:30)
[2017-03-18] MEDS ORDERED: MANNITOL 12.5 GM/50 ML VIAL IV PRN (11:30)
--- NOTE | 2017-03-18 12:19 | PD ---
HPI Chief Complaint: Altered Mental Status Time Seen by Provider: 10:01 Travel History International Travel<30 days: No Contact w/Intl Traveler<30days: No Traveled to known affect area: No History of Present Illness HPI 57-year-old woman who presents to the emergency department complaining brought by EMS for fatigue lethargy and some confusion. She's been in the hospital throughout all February. She was transferred to psychiatry for what seemed like behavior changes in "psychosis NOS". She was discharged yesterday. She is a history of end-stage renal disease. states she got home yesterday. She suffered from a floor last night because they've gotten rid of her bed because her into spitting in a hospital bed. He reports he was very lethargic this morning, was refusing to take her medicines, and in one to dialysis. Farrah came to pick her up for her dialysis. states she's had similar episodes in the past when she has an episode of acting her dialysis. He has severe debilities has trouble taking care of her. His cell phone number is [phone]. Patient has no complaints now. She denies taking her medicines this morning. History Past Medical History Narrative Medical Chronic kidney disease, on HD Hyperlipidemia CHF History of CVA Diabetes Hypertension : 1 Social History Alcohol Use: No Tobacco Use: No Allergies-Medications (Allergen,Severity, Reaction): Coded Allergies: No Known Allergies (Unverified Allergy, Unknown, 02/25/17) Reported Meds & Prescriptions Reported Meds & Active Scripts Active Depakote ER (Divalproex Sodium) 500 Mg Luiza 500 Mg PO BID Quetiapine (Quetiapine Fumarate) 100 Mg Tab 150 Mg PO HS Hydralazine HCl 25 Mg Tablet 25 Mg PO Q8HR Coreg (Carvedilol) 12.5 Mg Tab 25 Mg PO Q12HR Nifedipine ER 24 HR (Nifedipine) 60 Mg Tab 60 Mg PO BID Aspirin Adult Low Strength (Aspirin) 81 Mg Tabdr 81 Mg PO DAILY [id number] 168 HR Patch (Clonidine) 0.1 Mg/24 Hr Patch 1 Patch T-DERMAL Q7D Protonix (Pantoprazole Sodium) 40 Mg Tab 40 Mg PO BID Reported Vitamin B-12 (Cyanocobalamin) 1,000 Mcg Tab 1,000 Mcg PO DAILY Glyburide 5 Mg Tab 5 Mg PO DAILY Take with meals at the same time each day Renvela (Sevelamer Carbonate) 800 Mg Tab 800 Mg PO TID Take with meals Review of Systems ROS Limitations: Clinical Condition Physical Exam Narrative GENERAL: 57 year-old woman, sluggish, nontoxic. SKIN: Focused skin assessment warm/dry. HEAD: Atraumatic. Normocephalic. EYES: Pupils equal and round. No scleral icterus. No injection or drainage. ENT: No nasal bleeding or discharge. Mucous membranes pink and moist. NECK: Trachea midline. No JVD. CARDIOVASCULAR: Regular rate and rhythm. No murmur appreciated. RESPIRATORY: No accessory muscle use. Clear to auscultation. Breath sounds equal bilaterally. GASTROINTESTINAL: Abdomen soft, non-tender, nondistended. Hepatic and splenic margins not palpable. MUSCULOSKELETAL: No obvious deformities. Edema in the lower extremities. Upper extremity AV fistula. NEUROLOGICAL: Awake but sedated. Requires prompt and answer questions. No obvious focal deficits. PSYCHIATRIC: Appropriate mood and affect; insight and judgment normal. Data Data Last Documented VS Vital Signs Date Time Temp Pulse Resp B/P (MAP) Pulse Ox O2 Delivery O2 Flow Rate FiO2 03/18/17 11:30 97.9 72 16 213/100 (137) 96 Room Air Orders Orders Complete Blood Count With Diff (03/18/17 10:01) Basic Metabolic Panel (Bmp) (03/18/17 10:01) Iv Access Insert/Monitor (03/18/17 10:01) Hydralazine (Apresoline) (03/18/17 14:00) Hydralazine (Apresoline) (03/18/17 10:45) Carvedilol (Coreg) (03/18/17 10:45) Glyburide (Diabeta) (03/18/17 10:45) Nifedipine Sr (Procardia Xl) (03/18/17 10:45) Divalproex Er (Depakote Er) (03/18/17 10:45) Valproic Acid (Depakene) (03/18/17 10:43) Blood Flow Rate (03/18/17 11:26) Dialysate Flow Rate (03/18/17 11:26) Dialyzer (03/18/17 11:26) Concentrate (03/18/17 11:26) Acid Concentrate (03/18/17 11:26) Length Of Dialysis (03/18/17 11:26) Frequency Of Dialysis (03/18/17 11:26) Dialysis Obtain (03/18/17 11:) Needle Size (03/18/17 11:26) Dialysis Schedule (03/18/17 11:26) Resp Oxygen Richardson C Titrat 1-4 L (03/18/17 ) Dialysis Weight (03/18/17 11:26) ^ Obtain As Needed (03/18/17 11:26) Sodium Chlor 0.9% 1000 Ml Inj (Ns 1000 M (03/18/17 11:26) Heparin Inj (Heparin Inj) (03/18/17 11:30) Sodium Chlor 0.9% 1000 Ml Inj (Ns 1000 M (03/18/17 11:26) Sodium Chlor 0.9% 1000 Ml Inj (Ns 1000 M (03/18/17 11:26) Mannitol Inj (Mannitol Inj) (03/18/17 11:30) Albumin 25% Inj (Albumin 25% Inj) (03/18/17 11:30) Sodium Chloride 0.9% Flush (Ns Flush) (03/18/17 11:30) Ondansetron Inj (Zofran Inj) (03/18/17 11:30) Acetaminophen (Tylenol) (03/18/17 11:30) Diphenhydramine (Benadryl) (03/18/17 11:30) Nitroglycerin Sl (Nitrostat Sl) (03/18/17 11:30) Clonidine (Catapres) (03/18/17 11:30) Epoetin Jose Inj (Epogen Inj) (03/18/17 11:30) Gelatin 12 Mm/7 Mm Top (Gelfoam 12 Mm/7 (03/18/17 11:30) Consult Pt Eval & Treat (03/18/17 11:51) Labs Laboratory Tests Test 03/18/17 10:00 03/18/17 11:20 White Blood Count 7.6 TH/MM3 Red Blood Count 3.73 MIL/MM3 Hemoglobin 11.5 GM/DL Hematocrit 33.9 % Mean Corpuscular Volume 90.9 FL Mean Corpuscular Hemoglobin 30.9 PG Mean Corpuscular Hemoglobin Concent 34.0 % Red Cell Distribution Width 14.9 % Platelet Count 196 TH/MM3 Mean Platelet Volume 8.6 FL Neutrophils (%) (Auto) 71.1 % Lymphocytes (%) (Auto) 15.4 % Monocytes (%) (Auto) 9.2 % Eosinophils (%) (Auto) 3.5 % Basophils (%) (Auto) 0.8 % Neutrophils # (Auto) 5.4 TH/MM3 Lymphocytes # (Auto) 1.2 TH/MM3 Monocytes # (Auto) 0.7 TH/MM3 Eosinophils # (Auto) 0.3 TH/MM3 Basophils # (Auto) 0.1 TH/MM3 CBC Comment DIFF FINAL Differential Comment Blood Urea Nitrogen 86 MG/DL Creatinine 9.67 MG/DL Random Glucose 128 MG/DL Calcium Level 9.9 MG/DL Sodium Level 137 MEQ/L Potassium Level 5.3 MEQ/L Chloride Level 99 MEQ/L Carbon Dioxide Level 26.4 MEQ/L Anion Gap 12 MEQ/L Estimat Glomerular Filtration Rate 4 ML/MIN MDM Medical Decision Making Medical Screen Exam Complete: Yes Emergency Medical Condition: Yes Interpretation(s) LABS: CBC remarkable for mild anemia. BMP remarkable from a BUN/creatinine. Valproic acid levels pending Differential Diagnosis Behavioral disturbance, adjustment reaction, psychosis, encephalopathy, other Narrative Course Medical decision-making 57-year-old presents emergency department with lethargy and refused dialysis in her medications. She was discharged from the hospital yesterday. I spoke to the into the patient, I recommended placement in intermediate facility. We'll arrange for dialysis here today. Patient states she does not want to go to the nursing facility. initially was supportive, but then states he wants to try at home again. He states they have home health set up. I explained to them that she does not take her medicines and does not go to dialysis she will in the been the hospital or intermediate again. Endorse understanding. We'll check her Depakote level, we'll also arrange for dialysis today and transport home. Diagnosis Primary Impression: Unspecified psychosis Additional Impression: ESRD (end stage renal disease) Patient Instructions: General Instructions Additional Instructions: Take medications daily as prescribed. Follow-up with your primary physician. Follow-up with home health. Continue dialysis. Med/Other Pt SpecificInfo: No Change to Meds Disposition: 01 DISCHARGE HOME Condition: Stable Pablo Lancaster MD Mar 18, 2017 12:19
--- NOTE | 2017-03-18 12:21 | HHI.FF ---
Face to Face Verification Diagnosis: (1) Leg edema, left (2) End stage renal disease on dialysis (3) Delirium due to another medical condition Physical Therapy Order: Evaluate and Treat, Improve ambulation, Strength and gait training Home Health Nursing Order: Medical education Signs/symptoms of disease process Nursing assessment with vital signs Home Health Aide Order: To Assist In: Bathing and personal care, veneer taping machine offbearer and meal prep Web Content Writer Order: To Evaluate: Living conditions/environment Order: To Provide: Long range planning I have seen patient Ryanne Patel on 03/18/17. My clinical findings support the need for the requested home health care services because: Ltd mobility - disease progression Limited ability to care for self Need for psychosocial assistance High risk of falls I certify that my clinical findings support that this patient is homebound because: Impaired cognitive ability/safety Unsteady gait/balance Unsafe to leave home unassisted Pablo Lancaster MD Mar 18, 2017 12:21
--- NOTE | 2017-03-18 13:54 | PD.CONS ---
HPI Service Nephrology Consult Requested By Reason for Consult ESRD Primary Care Physician Unknown History of Present Illness Patient is a 57-year-old female with history of end-stage renal disease, obesity , hypertension, diabetes who has been noncompliant with dialysis and has underlying dementia, encephalopathy, she has prolonged hospitalization and then subsequently discharged to psychiatric floor and she was discharged yesterday, she was unable to go to her dialysis center and called ambulance for her to come to the hospital. Review of Systems ROS Limitations: Clinical Condition Constitutional: COMPLAINS OF: Fatigue Past Family Social History Allergies: Coded Allergies: No Known Allergies (Unverified Allergy, Unknown, 02/25/17) Past Medical History Diabetes ESRD Hypertension Obesity Altered mental status. Dementia History of lacunar infarcts Encephalopathy Noncompliant Past Surgical History AV fistula left Hysterectomy Reported Medications Reported Meds & Active Scripts Active Depakote ER (Divalproex Sodium) 500 Mg Luiza 500 Mg PO BID Quetiapine (Quetiapine Fumarate) 100 Mg Tab 150 Mg PO HS Hydralazine HCl 25 Mg Tablet 25 Mg PO Q8HR Coreg (Carvedilol) 12.5 Mg Tab 25 Mg PO Q12HR Nifedipine ER 24 HR (Nifedipine) 60 Mg Tab 60 Mg PO BID Aspirin Adult Low Strength (Aspirin) 81 Mg Tabdr 81 Mg PO DAILY [id number] 168 HR Patch (Clonidine) 0.1 Mg/24 Hr Patch 1 Patch T-DERMAL Q7D Protonix (Pantoprazole Sodium) 40 Mg Tab 40 Mg PO BID Reported Vitamin B-12 (Cyanocobalamin) 1,000 Mcg Tab 1,000 Mcg PO DAILY Glyburide 5 Mg Tab 5 Mg PO DAILY Take with meals at the same time each day Renvela (Sevelamer Carbonate) 800 Mg Tab 800 Mg PO TID Take with meals Active Ordered Medications Current Medications Medications (Trade) Dose Ordered Sig/Shaun Route Start Time Stop Time Status Last Admin (Apresoline) 25 mg Q8HR PO 03/18/17 14:00 (Coreg) 25 mg Q12HR PO 03/18/17 10:45 (Diabeta) 5 mg DAILYAC PO 03/18/17 10:45 (Procardia Xl) 60 mg Q12HR PO 03/18/17 10:45 03/18/17 11:40 Sodium Chloride 1,000 ml @ 0 mls/hr Q0M PRN OTHER 03/18/17 11:26 (Heparin Inj) 8,000 units UNSCH PRN IV FLUSH 03/18/17 11:30 Sodium Chloride 1,000 ml @ 200 mls/hr Q5H PRN IV 03/18/17 11:26 Sodium Chloride 1,000 ml @ 0 mls/hr Q0M PRN OTHER 03/18/17 11:26 (Mannitol Inj) 12.5 gm UNSCH PRN IV 03/18/17 11:30 Albumin Human 100 ml @ 60 mls/hr UNSCH PRN IV 03/18/17 11:30 (NS Flush) 5 ml UNSCH PRN IV FLUSH 03/18/17 11:30 (Zofran Inj) 4 mg UNSCH PRN IV PUSH 03/18/17 11:30 (Tylenol) 650 mg UNSCH PRN PO 03/18/17 11:30 (Benadryl) 25 mg UNSCH PRN PO 03/18/17 11:30 (Nitrostat Sl) 0.4 mg UNSCH PRN SL 03/18/17 11:30 (Catapres) 0.1 mg UNSCH PRN PO 03/18/17 11:30 03/18/17 11:56 (Epogen Inj) 4,000 units UNSCH PRN IV PUSH 03/18/17 11:30 (Gelfoam 12 Mm/7 Mm Top) 1 foam UNSCH PRN TOP 03/18/17 11:30 Family History Noncontributory Social History Denies smoking or alcohol use Physical Exam Vital Signs Vital Signs Date Time Temp Pulse Resp B/P (MAP) Pulse Ox O2 Delivery O2 Flow Rate FiO2 03/18/17 11:30 97.9 72 16 213/100 (137) 96 Room Air 03/18/17 10:15 97.9 72 16 213/100 (137) 96 Physical Exam GENERAL: Well-nourished, well-developed patient. SKIN: Warm and dry. HEAD: Normocephalic. EYES: No scleral icterus. No injection or drainage. NECK: Supple, trachea midline. No JVD or lymphadenopathy. CARDIOVASCULAR: Regular rate and rhythm without murmurs, gallops, or rubs. RESPIRATORY: Breath sounds diminished at bases. GASTROINTESTINAL: Abdomen soft, non-tender, nondistended. EXTREMITIES: No cyanosis, or edema. AV fistula and left NEUROLOGICAL: Awake, confused Laboratory Laboratory Tests Test 03/18/17 10:00 03/18/17 11:20 White Blood Count 7.6 Red Blood Count 3.73 Hemoglobin 11.5 Hematocrit 33.9 Mean Corpuscular Volume 90.9 Mean Corpuscular Hemoglobin 30.9 Mean Corpuscular Hemoglobin Concent 34.0 Red Cell Distribution Width 14.9 Platelet Count 196 Mean Platelet Volume 8.6 Neutrophils (%) (Auto) 71.1 Lymphocytes (%) (Auto) 15.4 Monocytes (%) (Auto) 9.2 Eosinophils (%) (Auto) 3.5 Basophils (%) (Auto) 0.8 Neutrophils # (Auto) 5.4 Lymphocytes # (Auto) 1.2 Monocytes # (Auto) 0.7 Eosinophils # (Auto) 0.3 Basophils # (Auto) 0.1 CBC Comment DIFF FINAL Differential Comment Blood Urea Nitrogen 86 Creatinine 9.67 Random Glucose 128 Calcium Level 9.9 Sodium Level 137 Potassium Level 5.3 Chloride Level 99 Carbon Dioxide Level 26.4 Anion Gap 12 Estimat Glomerular Filtration Rate 4 Valproic Acid (Depakene) Level 51 Result Diagram: 03/18/17 1000 03/18/17 1000 Assessment and Plan Problem List: (1) End stage renal disease on dialysis ICD Codes: N18.6 - End stage renal disease; Z99.2 - Dependence on renal dialysis Status: Acute Plan: Patient is seen at hemodialysis she is in altered mental status confused Hemodialysis proceeding noted seen at dialysis K bath UF 3 L She follows with Dr. ARROYO Discharge planning needs home health care or alf (2) Unspecified psychosis ICD Codes: F29 - Unspecified psychosis not due to a substance or known physiological condition Plan: Continue to follow (3) Hypertension ICD Codes: I10 - Essential (primary) hypertension Status: Chronic Plan: Monitor blood pressure (4) Diabetes mellitus ICD Codes: E11.9 - Type 2 diabetes mellitus without complications Status: Chronic Plan: Monitor blood glucose Problem Qualifiers (1) Diabetes mellitus: Sylvain Freedman MD Mar 18, 2017 13:53
[2017-03-18] MEDS ORDERED: hydrALAZINE HCL 25 MG TAB PO SCH (14:00)
[2017-03-18 18:39] VITALS: BP 146/74
== END 2017-03-18 18:49 | disposition home or self-care (01) ==
LOC: NEPE 09:43 → NEDAMB 18:49
DX: R41.82 Altered mental status, unspecified (principal); E11.22 Type 2 diabetes mellitus with diabetic chronic kidney disease; I12.0 Hypertensive chronic kidney disease with stage 5 chronic kidney disease or end stage renal disease; N18.6 End stage renal disease; F29 Unspecified psychosis not due to a substance or known physiological condition; E66.9 Obesity, unspecified; Z79.899 Other long term (current) drug therapy; Z99.2 Dependence on renal dialysis; Z79.82 Long term (current) use of aspirin
CPT/HCPCS: 80048; 80164; 85025; 96374; 97161; 99283; G0257; G8987; G8988; 90935

== ENCOUNTER 2017-03-30 14:11 | Emergency (ER) | payer MEDICARE ==
[~2017-03-30] VITALS: Ht 165.1 cm; Wt 97.3 kg
[2017-03-30 14:27] VITALS: BP 189/84; PULSE 63; RESP 18; TEMP 97.5; O2SAT 99
[2017-03-30] MEDS ORDERED: APRESOLINE PO (14:44)
--- NOTE | 2017-03-30 14:49 | PD ---
HPI Chief Complaint: Altered Mental Status Time Seen by Provider: 14:16 Travel History International Travel<30 days: No Contact w/Intl Traveler<30days: No Traveled to known affect area: No History of Present Illness HPI This 57-year-old female is brought from dialysis because of confusion. She has been having episodes of confusion which is the diagnosis psychosis of unknown origin. She has been admitted at [facility] and has had extensive evaluation she is on dialysis. Today she went for dialysis and was noted to be confused. She did not apparently improved during her dialysis and at the conclusion of dialysis she was sent here. Patient herself does not wish to be here and is asking to go home. Her is a double amputee hasn't unable to come pick her up. I have spoken to him at some length. He seems quite familiar with her condition and has been through these periods of confusion with her. He says he is able to handle her. She says she is not having threat to herself. The patient is quite insistent on going home. Her indicates they have an appointment with a psychiatrist tomorrow at 3 and is quite concerned that he make it to that appointment. PFSH Past Medical History Anemia: Yes Arthritis: No Autoimmune Disease: No Cancer: No High Cholesterol: Yes Congestive Heart Failure: Yes Coronary Artery Disease: Yes Dialysis: Yes Diminished Hearing: No GERD: Yes Headaches: No Hypertension: Yes Immune Disorder: No Implanted Vascular Access Dvce: No Musculoskeletal: No Neurologic: Yes Psychiatric: Yes (patient has had psychotic breaks when missing dialysis in past ) Reproductive: No Pancreatitis: Yes Renal Failure: Yes (HD dialysis) Seizures: No ?: Not : 1 Miscarriage: 1 Past Surgical History Abdominal Surgery: No Cardiac Surgery: No Ear Surgery: No Endocrine Surgery: No Eye Surgery: No Genitourinary Surgery: No Gynecologic Surgery: No Oral Surgery: No Thoracic Surgery: No Other Surgery: Yes (LT FOREARM FISTULA) Social History Alcohol Use: No Tobacco Use: No Allergies-Medications (Allergen,Severity, Reaction): Coded Allergies: No Known Allergies (Unverified Allergy, Unknown, 03/30/17) Reported Meds & Prescriptions Reported Meds & Active Scripts Active Depakote ER (Divalproex Sodium) 500 Mg Luiza 500 Mg PO BID Hydralazine HCl 25 Mg Tablet 25 Mg PO Q8HR Coreg (Carvedilol) 12.5 Mg Tab 25 Mg PO Q12HR Nifedipine ER 24 HR (Nifedipine) 60 Mg Tab 60 Mg PO BID Aspirin Adult Low Strength (Aspirin) 81 Mg Tabdr 81 Mg PO DAILY Protonix (Pantoprazole Sodium) 40 Mg Tab 40 Mg PO BID Reported [Apresoline] 25 Mg PO Q8HR Renvela (Sevelamer Carbonate) 800 Mg Tab 800 Mg PO TID Take with meals Review of Systems ROS Limitations: Altered Mental Status Physical Exam Narrative GENERAL: Patient is agitated at times. She is a well-developed female SKIN: Focused skin assessment warm/dry. HEAD: Atraumatic. Normocephalic. EYES: Pupils equal and round. No scleral icterus. No injection or drainage. ENT: No nasal bleeding or discharge. Mucous membranes pink and moist. NECK: Trachea midline. No JVD. CARDIOVASCULAR: Regular rate and rhythm. No murmur appreciated. RESPIRATORY: No accessory muscle use. Clear to auscultation. Breath sounds equal bilaterally. GASTROINTESTINAL: Abdomen soft, non-tender, nondistended. Hepatic and splenic margins not palpable. MUSCULOSKELETAL: No obvious deformities. No clubbing. No cyanosis. No edema. NEUROLOGICAL: Awake and alert. No obvious cranial nerve deficits. Motor grossly within normal limits. Normal speech. PSYCHIATRIC: Patient is quite confused. She is not oriented to time or place Data Data Last Documented VS Vital Signs Date Time Temp Pulse Resp B/P (MAP) Pulse Ox O2 Delivery O2 Flow Rate FiO2 03/30/17 14:27 97.5 63 18 189/84 (119) 99 Orders Orders Complete Blood Count With Diff (03/30/17 14:32) Comprehensive Metabolic Panel (03/30/17 14:32) Urinalysis - C+S If Indicated (03/30/17 14:32) Magnesium (Mg) (03/30/17 14:32) Valproic Acid (Depakene) (03/30/17 14:32) Ammonia (03/30/17 14:32) Thyroid Stimulating Hormone (03/30/17 14:32) Alcohol (Ethanol) (03/30/17 14:32) MDM Medical Decision Making Medical Screen Exam Complete: Yes Emergency Medical Condition: Yes Medical Record Reviewed: Yes Differential Diagnosis Differential includes psychosis, altered mental status Narrative Course This lady has had identical episodes in the past. At this time she is requesting to go home and her feels quite confident that he can care for her at home. We will try to make it arrangements for her to return home Diagnosis Primary Impression: Altered mental status Disposition: 01 DISCHARGE HOME Condition: Stable Deon Cunningham MD Mar 30, 2017 14:49
[2017-03-31] MEDS ORDERED: HYDR-3799 PO (10:53)
== END 2017-03-30 15:35 | disposition home or self-care (01) ==
LOC: PHED 14:11
DX: R41.82 Altered mental status, unspecified (principal); E78.00 Pure hypercholesterolemia, unspecified; I11.0 Hypertensive heart disease with heart failure; I50.9 Heart failure, unspecified; I25.10 Atherosclerotic heart disease of native coronary artery without angina pectoris; Z99.2 Dependence on renal dialysis
CPT/HCPCS: 99281

== ENCOUNTER 2017-04-05 23:32 | Emergency (ER) | payer MEDICARE ==
[~2017-04-05] VITALS: Ht 162.6 cm; Wt 97.0 kg
[~2017-04-05 23:32] MED LIST changes: -CLON.1T T-DERMAL; -GLYB5TAB3 PO; -QUET1TAB8 PO; -VITA10002 PO
[2017-04-05 23:46] VITALS: BP 252/146; PULSE 54; RESP 16; TEMP 97.5; O2SAT 99
[2017-04-05] MEDS ORDERED: DEXTROSE 50% IN WATER 50 ML SYRINGE ONE (23:56)
--- NOTE | 2017-04-05 23:58 | PD ---
HPI Chief Complaint: Altered Mental Status Time Seen by Provider: 23:58 Travel History International Travel<30 days: No Contact w/Intl Traveler<30days: No Traveled to known affect area: No History of Present Illness HPI 57-year-old female came to the emergency room with history of altered mental status. As per the paramedics her called 911. He is a bilateral amputee and could not come in with her or is not here currently. Patient meanwhile has these psychotic episodes frequently. In fact she was in the emergency room in [place] less than one week ago for exact similar reason. Patient does have unfortunately a lot of medical conditions including diabetes and end-stage renal disease. She is a dialysis patient. When EMS arrived they noticed that her blood sugar was in the 50s. Patient has been constantly asking to go home. To the point where she has become unreasonable. Her attention span is extremely short period once she is new to understand she stays quiet for 5 minutes and then starts asking to go home again. However patient was the exact same way in [place] emergency room less than a week ago. She also came in with significantly high blood pressure. Patient is not a reasonable historian at this point. She does have psych history. [facility] Past Medical History Narrative Medical List of her past medical, surgical, social and family history is reviewed from the nursing note. Medical History: Unable to Obtain Anemia: Yes Arthritis: No Autoimmune Disease: No Cancer: No High Cholesterol: Yes Congestive Heart Failure: Yes Coronary Artery Disease: Yes Dialysis: Yes Diminished Hearing: No GERD: Yes Headaches: No Hypertension: Yes Immune Disorder: No Implanted Vascular Access Dvce: No Musculoskeletal: No Neurologic: Yes Psychiatric: Yes (patient has had psychotic breaks when missing dialysis in past ) Reproductive: No Pancreatitis: Yes Renal Failure: Yes (HD dialysis) Seizures: No ?: Unknown : 1 Miscarriage: 1 Past Surgical History Surgical History: Unable to Obtain Abdominal Surgery: No Cardiac Surgery: No Ear Surgery: No Endocrine Surgery: No Eye Surgery: No Genitourinary Surgery: No Gynecologic Surgery: No Oral Surgery: No Thoracic Surgery: No Other Surgery: Yes (placement of AV fistula LEFT FOREARM) Social History Alcohol Use: No Tobacco Use: No Allergies-Medications (Allergen,Severity, Reaction): Coded Allergies: No Known Allergies (Unverified Allergy, Unknown, 03/30/17) Comments No known drug allergies. Reported Meds & Prescriptions Reported Meds & Active Scripts Active Depakote ER (Divalproex Sodium) 500 Mg Luiza 500 Mg PO BID Hydralazine HCl 25 Mg Tablet 25 Mg PO Q8HR Coreg (Carvedilol) 12.5 Mg Tab 25 Mg PO Q12HR Nifedipine ER 24 HR (Nifedipine) 60 Mg Tab 60 Mg PO BID Aspirin Adult Low Strength (Aspirin) 81 Mg Tabdr 81 Mg PO DAILY Reported Quetiapine (Quetiapine Fumarate) 100 Mg Tab 100 Mg PO Calcium Acetate (Phosphate Binder) 667 Mg Cap Unknown Dose PO Amlodipine (Amlodipine Besylate) 10 Mg Tab 10 Mg PO Clonidine (Clonidine HCl) 0.2 Mg Tab 0.2 Mg PO Glipizide 10 Mg Tab 10 Mg PO Take 30 minutes before a meal Narrative Medication List of her home medications reviewed from the nursing note. Review of Systems ROS Limitations: Altered Mental Status Except as stated in HPI: all other systems reviewed are Neg Psychiatric: Positive: Disorder of Thought Physical Exam Narrative GENERAL: Awake, alert, anxious, asking repeatedly to go home, disheveled and poor skin hygiene SKIN: Focused skin assessment warm/dry. Disheveled and poor skin hygiene HEAD: Atraumatic. Normocephalic. EYES: Pupils equal and round. No scleral icterus. No injection or drainage. ENT: No nasal bleeding or discharge. Mucous membranes pink and moist. NECK: Trachea midline. No JVD. CARDIOVASCULAR: Regular rate and rhythm. No murmur appreciated. RESPIRATORY: No accessory muscle use. Clear to auscultation. Breath sounds equal bilaterally. GASTROINTESTINAL: Abdomen soft, non-tender, nondistended. Hepatic and splenic margins not palpable. MUSCULOSKELETAL: No obvious deformities. No clubbing. No cyanosis. No edema. NEUROLOGICAL: Awake and alert. No obvious cranial nerve deficits. Motor grossly within normal limits. Normal speech. PSYCHIATRIC: Appropriate mood and affect; insight and judgment normal. Data Data Last Documented VS Vital Signs Date Time Temp Pulse Resp B/P (MAP) Pulse Ox O2 Delivery O2 Flow Rate FiO2 04/06/17 03:33 62 16 210/101 (137) 97 04/06/17 01:52 Room Air 04/05/17 23:46 97.5 Orders Orders Dextrose 50% In [place] (Syr) Inj (D50w (Syr (04/05/17 23:56) Dextrose 50% In [place] (Vial) Inj (D50w (Vi (04/06/17 00:30) Blood Glucose (04/06/17 00:23) Clonidine (Catapres) (04/06/17 01:00) Ed Discharge Order (04/06/17 03:20) [facility] Medical Decision Making Medical Screen Exam Complete: Yes Emergency Medical Condition: Yes Medical Record Reviewed: Yes Differential Diagnosis Hyperglycemia, hypertension, psychosis Narrative Course 1:28 AM patient was given D50 and orange juice to drink. Her blood sugar has remained steady over past 1 hour. I've given her by mouth clonidine and her blood pressure will be checked. Once the blood pressure comes down I will discharge the patient home. The will be contacted to let him know that patient will be coming home. She needs to continue with her dialysis which I was told is due to this morning. Procedures EKG Prior to Arrival: No Diagnosis Primary Impression: Unspecified psychosis Additional Impression: Hypertension Qualified Codes: I10 - Essential (primary) hypertension Referrals: Primary Care Physician Additional Instructions: Please follow-up with your primary care. Get the dialysis like your appointment for the morning. Disposition: 01 DISCHARGE HOME Condition: Stable Carlota Rodriguez MD Apr 05, 2017 23:58
[2017-04-06] MEDS ORDERED: CALC1CAP PO (00:21)
[2017-04-06] MEDS ORDERED: QUET1TAB8 PO (00:21)
[2017-04-06] MEDS ORDERED: GLIP10TA6 PO (00:21)
[2017-04-06] MEDS ORDERED: AMLO10TA2 PO (00:21)
[2017-04-06] MEDS ORDERED: CLON0.2T PO (00:21)
[2017-04-06] MEDS ORDERED: DEXTROSE 50% IN WATER 50 ML VIAL(D50) IV PUSH ONE (00:30)
[2017-04-06 00:59] VITALS: BP 229/106
[2017-04-06] MEDS ORDERED: cloNIDine HCL 0.2 MG TAB PO ONE (01:00)
[2017-04-06 01:52] VITALS: BP 249/120; PULSE 57; RESP 16; O2SAT 98
[2017-04-06 02:35] VITALS: BP 254/118; PULSE 65
[2017-04-06 03:33] VITALS: BP 210/101
== END 2017-04-06 03:42 | disposition home or self-care (01) ==
LOC: NEPC 23:32
DX: F29 Unspecified psychosis not due to a substance or known physiological condition (principal); E11.22 Type 2 diabetes mellitus with diabetic chronic kidney disease; I13.2 Hypertensive heart and chronic kidney disease with heart failure and with stage 5 chronic kidney disease, or end stage renal disease; I50.9 Heart failure, unspecified; N18.6 End stage renal disease; D64.9 Anemia, unspecified; I25.10 Atherosclerotic heart disease of native coronary artery without angina pectoris; E78.00 Pure hypercholesterolemia, unspecified; K21.9 Gastro-esophageal reflux disease without esophagitis
CPT/HCPCS: 96374

== ENCOUNTER 2017-04-13 01:19 | Emergency (ER) | payer MEDICARE ==
[~2017-04-13] VITALS: Ht 157.5 cm; Wt 127.3 kg
[~2017-04-13 01:19] MED LIST changes: +AMLO10TA2 PO; +CALC1CAP PO; +CLON0.2T PO; +GLIP10TA6 PO; -PROT40TA PO; +QUET1TAB8 PO; -SEVEL800 PO
[2017-04-13 01:22] VITALS: PULSE 76; RESP 18; TEMP 98.2
[2017-04-13] MEDS ORDERED: LORazepam 2 MG/ML VIAL IM ONE (01:45)
[2017-04-13] MEDS ORDERED: HALOPERIDOL LACTATE 5 MG/ML AMP IM ONE (01:45)
--- NOTE | 2017-04-13 01:52 | PD ---
HPI . Altered mental status Chief Complaint: Altered Mental Status Time Seen by Provider: 01:26 Travel History International Travel<30 days: No Contact w/Intl Traveler<30days: No Traveled to known affect area: No History of Present Illness HPI This patient presents to us with the chief complaint of altered mental status. She came in by EMS. The nursing staff is very familiar with this patient and states that this is her normal presentation. She is a noncompliant dialysis patient. She also has diabetes. She is scheduled to dialyze Thursday, Thursday and Thursday but skipped her Thursday dialysis. Today is Thursday. Report from EMS is that she has had an altered mental status all day today. Her eventually called rescue tonight. Her current behavior is reportedly not at all abnormal for her. This patient is unable to give me any history at all. PFSH Past Medical History Anemia: Yes Arthritis: No Autoimmune Disease: No Cancer: No High Cholesterol: Yes Congestive Heart Failure: Yes Coronary Artery Disease: Yes Dialysis: Yes Diminished Hearing: No GERD: Yes Headaches: No Hypertension: Yes Immune Disorder: No Implanted Vascular Access Dvce: No Musculoskeletal: No Neurologic: Yes Psychiatric: Yes (patient has had psychotic breaks when missing dialysis in past ) Reproductive: No Pancreatitis: Yes Renal Failure: Yes (HD dialysis) Seizures: No ?: Not : 1 Miscarriage: 1 Past Surgical History Abdominal Surgery: No Cardiac Surgery: No Ear Surgery: No Endocrine Surgery: No Eye Surgery: No Genitourinary Surgery: No Gynecologic Surgery: No Oral Surgery: No Thoracic Surgery: No Other Surgery: Yes (placement of AV fistula LEFT FOREARM) Social History Alcohol Use: No Tobacco Use: No Substance Use: No Allergies-Medications (Allergen,Severity, Reaction): Coded Allergies: No Known Allergies (Unverified Allergy, Unknown, 03/30/17) Reported Meds & Prescriptions Reported Meds & Active Scripts Active Depakote ER (Divalproex Sodium) 500 Mg Luiza 500 Mg PO BID Hydralazine HCl 25 Mg Tablet 25 Mg PO Q8HR Coreg (Carvedilol) 12.5 Mg Tab 25 Mg PO Q12HR Nifedipine ER 24 HR (Nifedipine) 60 Mg Tab 60 Mg PO BID Aspirin Adult Low Strength (Aspirin) 81 Mg Tabdr 81 Mg PO DAILY Reported Quetiapine (Quetiapine Fumarate) 100 Mg Tab 100 Mg PO Calcium Acetate (Phosphate Binder) 667 Mg Cap Unknown Dose PO Amlodipine (Amlodipine Besylate) 10 Mg Tab 10 Mg PO Clonidine (Clonidine HCl) 0.2 Mg Tab 0.2 Mg PO Glipizide 10 Mg Tab 10 Mg PO Take 30 minutes before a meal Review of Systems ROS Limitations: Altered Mental Status Physical Exam Narrative GENERAL: Patient is yelling out pretty much continuously. She states that she wants to go home. She wants to see [facility]. SKIN: warm/dry. Uremic hue. HEAD: Normocephalic. Atraumatic. EYES: Pupils equal and round. No scleral icterus. No injection or drainage. ENT: No nasal bleeding or discharge. Mucous membranes pink and moist. NECK: Trachea midline. Full range of motion without pain.. CARDIOVASCULAR: Regular rate and rhythm. RESPIRATORY: No accessory muscle use. Clear to auscultation. Breath sounds equal bilaterally. MUSCULOSKELETAL: No obvious deformities. NEUROLOGICAL: Awake and alert. No obvious cranial nerve deficits. Motor grossly within normal limits. PSYCHIATRIC: Unable to assess. Data Data Last Documented VS Vital Signs Date Time Temp Pulse Resp B/P (MAP) Pulse Ox O2 Delivery O2 Flow Rate FiO2 04/13/17 02:12 66 18 211/146 (167) 97 Room Air 04/13/17 01:22 98.2 Orders Orders Basic Metabolic Panel (Bmp) (04/13/17 01:36) Complete Blood Count With Diff (04/13/17 01:36) Lorazepam Inj (Ativan Inj) (04/13/17 01:45) Haloperidol Inj (Haldol Inj) (04/13/17 01:45) Labs Laboratory Tests Test 04/13/17 01:35 White Blood Count 7.4 TH/MM3 Red Blood Count 3.33 MIL/MM3 Hemoglobin 10.0 GM/DL Hematocrit 30.4 % Mean Corpuscular Volume 91.2 FL Mean Corpuscular Hemoglobin 30.2 PG Mean Corpuscular Hemoglobin Concent 33.1 % Red Cell Distribution Width 16.1 % Platelet Count 239 TH/MM3 Mean Platelet Volume 8.7 FL Neutrophils (%) (Auto) 68.1 % Lymphocytes (%) (Auto) 17.4 % Monocytes (%) (Auto) 9.7 % Eosinophils (%) (Auto) 3.6 % Basophils (%) (Auto) 1.2 % Neutrophils # (Auto) 5.1 TH/MM3 Lymphocytes # (Auto) 1.3 TH/MM3 Monocytes # (Auto) 0.7 TH/MM3 Eosinophils # (Auto) 0.3 TH/MM3 Basophils # (Auto) 0.1 TH/MM3 CBC Comment DIFF FINAL Differential Comment Blood Urea Nitrogen 44 MG/DL Creatinine 9.52 MG/DL Random Glucose 134 MG/DL Calcium Level 10.4 MG/DL Sodium Level 140 MEQ/L Potassium Level 4.4 MEQ/L Chloride Level 101 MEQ/L Carbon Dioxide Level 29.7 MEQ/L Anion Gap 9 MEQ/L Estimat Glomerular Filtration Rate 4 ML/MIN MDM Medical Decision Making Medical Screen Exam Complete: Yes Emergency Medical Condition: Yes Medical Record Reviewed: Yes (patient has been seen here before with very similar complaints.) Differential Diagnosis Differential diagnosis of altered mental status includes but is not limited to infection, electrolyte abnormality, neurological event, intoxication Narrative Course This patient presents to us with the chief complaint of altered mental status. She has a history of end-stage renal disease on dialysis and also has a history of diabetes. I have ordered a couple of basic labs just to make sure that she is not hyperkalemic or hypoglycemic. She is scheduled for dialysis this morning. She was medicated with Haldol and Ativan. CBC & BMP Diagram 04/13/17 01:35 Calcium Level 10.4 H Patient is now resting comfortably. She is due for dialysis in the morning. We will discharge her from here in the morning to go to dialysis. Diagnosis Primary Impression: Altered mental status Qualified Codes: R41.0 - Disorientation, unspecified Patient Instructions: Altered Mental Status (ED), General Instructions Disposition: 01 DISCHARGE HOME Condition: Stable Kate Bills MD Apr 13, 2017 01:52
[2017-04-13 01:58] LABS: AUTOMATED NEUTROPHIL # 5.1 TH/MM3 (1.8-7.7); BASOPHIL # 0.1 TH/MM3 (0-0.2); BASOPHIL % 1.2 % (0.0-2.0); EOSINOPHIL # 0.3 TH/MM3 (0-0.4); EOSINOPHIL % 3.6 % (0.0-4.0); HEMATOCRIT 30.4 % (35.0-46.0); LYMPH % 17.4 % (9.0-44.0); LYMPHOCYTE # 1.3 TH/MM3 (1.0-4.8); MEAN CELL VOLUME 91.2 FL (80.0-100.0); MEAN CORPUSCULAR HEMOGLOBIN 30.2 PG (27.0-34.0); MEAN CORPUSCULAR HGB CONC 33.1 % (32.0-36.0); MEAN PLATELET VOLUME 8.7 FL (7.0-11.0); MONO % 9.7 % (0.0-8.0); MONOCYTE # 0.7 TH/MM3 (0-0.9); NEUT % 68.1 % (16.0-70.0); PLATELET COUNT 239 TH/MM3 (150-450); RED BLOOD COUNT 3.33 MIL/MM3 (4.00-5.30); RED CELL DISTRIBUTION WIDTH 16.1 % (11.6-17.2); WHITE BLOOD COUNT 7.4 TH/MM3 (4.0-11.0)
[2017-04-13 02:12] VITALS: BP 211/146; PULSE 66; RESP 18; O2SAT 97
[2017-04-13 02:22] LABS: BICARBONATE 29.7 MEQ/L (21.0-32.0); CALCIUM 10.4 MG/DL (8.5-10.1); CREATININE 9.52 MG/DL (0.50-1.00)
== END 2017-04-13 09:00 | disposition home or self-care (01) ==
LOC: NEPE 01:19
DX: R41.82 Altered mental status, unspecified (principal); E78.00 Pure hypercholesterolemia, unspecified; I25.10 Atherosclerotic heart disease of native coronary artery without angina pectoris; I11.0 Hypertensive heart disease with heart failure; I50.9 Heart failure, unspecified; E11.9 Type 2 diabetes mellitus without complications; K21.9 Gastro-esophageal reflux disease without esophagitis; Z99.2 Dependence on renal dialysis; Z91.19 Patient's noncompliance with other medical treatment and regimen; Z79.84 Long term (current) use of oral hypoglycemic drugs; Z79.82 Long term (current) use of aspirin
CPT/HCPCS: 80048; 85025; 96372; 99284; J1630; J2060